=== PATIENT | male | born 1950 | race Caucasian/White ===

== ENCOUNTER → 2017-01-08 | Outpatient (CLI) | payer OTHER ==
[2017-01-08 14:04] LABS: Blood Urea Nitrogen 12 mg/dL (9-20); Non-African American GFR(MDRD) >60 (>60 ml/min/1.73 sqM)
--- NOTE | 2017-01-10 15:35 | CT ---
EXAMINATION TYPE: CT ChestAbdPelvis w con DATE OF EXAM: 01/08/2017 COMPARISON: Prior CT chest 06/28/2016 HISTORY: Follow up colon cancer CT DLP: 2722.6 mGycm Automated exposure control for dose reduction was used. CONTRAST: CT scan of the chest, abdomen and pelvis is performed with Oral Contrast and with IV Contrast, patien t injected with 100 mL of Omnipaque 300. FINDINGS: There are differences in technique within the 2 studies. LUNGS: Multiple subcentimeter nodules are present, there is no change in size and number suspected ac counting for differences in technique. MEDIASTINUM: There are no greater than 1 cm hilar or mediastinal lymph nodes. There are coronary art kia calcifications present. No pericardial effusion is seen. No filling defect evident within the pul monary arteries to suggest pulmonary embolism although the contrast enhancement is different on this exam compared to prior. AORTA: No significant abnormality is seen. OTHER: Left-sided Port-A-Cath is present, catheter is coursing into the superior vena cava.. LIVER/GB: Liver shows low attenuation possibly due to hepatocellular disease, hepatic steatosis, the liver is enlarged and I question an abnormal area of low-attenuation on arterial phase within the rig ht lobe, axial image 70 and axial image 50 PANCREAS: No significant abnormality is seen. SPLEEN: Scattered calcifications are present. ADRENALS: No significant abnormality is seen. KIDNEYS: Cortical cyst is present associated with the left kidney measuring 2.7 cm. Right cortical lo w dense focus measures 13 mm. REPRODUCTIVE ORGANS: Prostate is enlarged. BOWEL: Some increased attenuation present in the fat surrounding the right colon along the paracolic gutter and Gerota's fascia may be postoperative.. FREE AIR: No Free Air visible. ASCITES: None seen. RETROPERITONEAL ADENOPATHY: No retroperitoneal adenopathy is seen. LYMPH NODES: No greater than 1 cm abdominal or pelvic lymph nodes are appreciated. URINARY BLADDER: Bladder wall is mildly thickened possibly due to chronic outlet obstruction. PELVIC ADENOPATHY: None visualized. OSSEOUS STRUCTURES: No significant abnormality is seen. Inferior vena cava filter is present in the infrarenal location. Increased attenuation along the ante rior abdominal wall midline compatible with postop change. IMPRESSION: Pulmonary nodules are thought likely to be stable suggesting old granulomatous disease. H eterogeneous density within the liver. Contrast-enhanced MRI of the liver may be of benefit to assess for fatty infiltration, exclude underlying metastatic disease. Follow-up recommended. Additional fin dings above.
== END | disposition home or self-care (01) ==
LOC: RADPROMAIN 12:56
PROVIDERS: ATTEND Internal Medicine Hematology & Oncology
DX: R91.8 Other nonspecific abnormal finding of lung field (principal); R93.2 Abnormal findings on diagnostic imaging of liver and biliary tract; C18.0 Malignant neoplasm of cecum
CPT/HCPCS: 82565; 84520; 71260; 74177; 36415; Q9967

== ENCOUNTER 2017-08-01 06:39 | Day surgery (SDC) | payer MEDICARE, OTHER ==
[2017-07-27 15:27] VITALS: BMI 37.8
[~2017-08-01 06:39] MED LIST: LACTATED RINGERS 1,000 ML IV SCH
[2017-08-01] MEDS ORDERED: LACTATED RINGERS 1,000 ML IV ONE (07:01)
[2017-08-01 07:09] VITALS: TEMP 98.2
[2017-08-01 07:13] LABS: Glucose,Whole Blood 116 mg/dL (75-99)
[2017-08-01] MEDS ORDERED: fentaNYL (PF) 50 MCG/ML 2 ML AMP ONE (07:30)
[2017-08-01] MEDS ORDERED: LIDOCAINE 1% INJ 10MG/ML (20 ML MDV) ONE (07:30)
[2017-08-01] MEDS ORDERED: GLYCOPYRROLATE 0.2 MG/ML 2 ML VIAL ONE (07:30)
[2017-08-01] MEDS ORDERED: PROPOFOL 10 MG/ML 20 ML VIAL IV ONE (07:30)
--- NOTE | 2017-08-01 07:35 | P.GSHP ---
History of Present Illness H&P Date: 08/01/17 CHIEF COMPLAINT: GERD and colon cancer HISTORY OF PRESENT ILLNESS: The patient is a 66-year-old male who presents with gastroesophageal reflux disease and need for colon screen. Upper and lower endoscopy were offered for further evaluation and management. PAST MEDICAL HISTORY: Please see list. PAST SURGICAL HISTORY: Please see list. MEDICATIONS: Please see list. ALLERGIES: Please see list. SOCIAL HISTORY: No illicit drug use FAMILY HISTORY: No reports of Crohn disease or ulcerative colitis. REVIEW OF ORGAN SYSTEMS: CONSTITUTIONAL: No reports of fevers or chills. GI: Denies any blood in stools or constipation. PHYSICAL EXAM: VITAL SIGNS: Stable GENERAL: Well-developed pleasant in no acute distress. HEENT: No scleral icterus. Extraocular movements grossly intact. Moist buccal mucosa. NECK: Supple without lymphadenopathy. CHEST: Unlabored respirations. Equal bilateral excursions. CARDIOVASCULAR: Regular rate and rhythm. Distal 2+ pulses. ABDOMEN: Soft, nondistended. MUSCULOSKELETAL: No clubbing, cyanosis, or edema. ASSESSMENT: 1. Gastroesophageal reflux disease 2. History of colon cancer. PLAN: 1. Recommend proceeding with an upper and lower endoscopy Past Medical History Past Medical History: Atrial Fibrillation, Coronary Artery Disease (CAD), Cancer , Heart Failure, Diabetes Mellitus, GERD/Reflux, GI Bleed, Hyperlipidemia, Hypertension, Myocardial Infarction ([place]), Sleep Apnea/CPAP/BIPAP Additional Past Medical History / Comment(s): gout,skin ca, COLON CA, ENLARGED PROSTATE Last Myocardial Infarction Date:: 2006 History of Any Multi-Drug Resistant Organisms: None Reported Past Surgical History: Appendectomy, Bowel Resection, Heart Catheterization With Stent, Orthopedic Surgery Additional Past Surgical History / Comment(s): skin ca removed, lt shoulder sx and rt knee sx, sinus sx(devaited septum). COLONOSCOPY Past Anesthesia/Blood Transfusion Reactions: Postoperative Nausea & Vomiting ( PONV) Date of Last Stent Placement:: 2006 Smoking Status: Former smoker - Past Family History Father Family Medical History: Asthma, Hyperlipidemia Additional Family Medical History / Comment(s): at age 61. was a heavy smoker,prostate sx a week before he not sure what took him. Mother Family Medical History: Dementia Additional Family Medical History / Comment(s): at age 75 from alzheimers Medications and Allergies Home Medications Medication Instructions Recorded Confirmed Type [employer] Carbonate [[employer] 450 mg PO HS 01/15/14 08/01/17 History Carbonate ER] Metoprolol Tartrate [Lopressor] 50 mg PO BID 01/15/14 08/01/17 History Potassium Chloride [Klor-Con 20] 20 meq PO DAILY 01/15/14 08/01/17 History Pravastatin Sodium [Pravachol] 40 mg PO HS 01/15/14 08/01/17 History Ziprasidone HCl 80 mg PO HS 01/15/14 08/01/17 History LORazepam [Ativan] 1 mg PO TID PRN 03/06/15 08/01/17 History Allopurinol [Zyloprim] 100 mg PO DAILY 07/28/15 08/01/17 History Cholecalciferol [Vitamin D3] 1,000 unit PO DAILY 07/28/15 08/01/17 History Fish Oil/Dha/Epa [Fish Oil 1,200 1 cap PO DAILY 07/28/15 08/01/17 History mg Fish Oil] Sertraline HCl [Zoloft] 100 mg PO DAILY 11/05/15 08/01/17 History [employer] Carbonate [[employer] 300 mg PO QA 01/27/16 08/01/17 History Carbonate ER] Rivaroxaban [Xarelto] 20 mg PO DAILY 07/27/17 08/01/17 History Temazepam [Restoril] 15 mg PO BID 07/27/17 08/01/17 History glipiZIDE [Glucotrol] 5 mg PO AC-BRKFST 07/27/17 08/01/17 History Allergies Allergy/AdvReac Type Severity Reaction Status Date / Time clopidogrel bisulfate Allergy Rash/Hives Verified 08/01/17 07:15 [From Plavix] Sulfa (Sulfonamide Allergy Rash/Hives Verified 08/01/17 07:15 Antibiotics) Surgical - Exam Vital Signs Temp Pulse Resp BP Pulse Ox 98.2 F 63 18 152/90 95 08/01/17 07:08 08/01/17 07:08 08/01/17 07:08 08/01/17 07:08 08/01/17 07:08 Results - Labs Abnormal Lab Results - Last 24 Hours (Table) 08/01/17 Range/Units 07:10 POC Glucose (mg/dL) 116 H (75-99) mg/dL
[2017-08-01] MEDS ORDERED: IV FLUID CONTINUATION 700 ML IV ONE (08:01)
--- NOTE | 2017-08-01 08:01 | P.PCN ---
Date of Procedure: 08/01/17 Description of Procedure: PREOPERATIVE DIAGNOSIS: Colonoscopy screening. Personal history of lung cancer, stage III POSTOPERATIVE DIAGNOSIS: Colonoscopy screening. Personal history of lung cancer, stage III Colon polyp, 90 cm History of right hemicolectomy Sigmoid diverticulosis OPERATION: Colonoscopy to the ileocolic anastomosis Colonoscopy with snare polypectomy at 90 cm. SURGEON: Caryn Llamas MD. ANESTHESIA: MAC. INDICATIONS: The patient is a 66-year-old male who presents for diagnosed with stage III colon cancer treated with right hemicolectomy over a year ago. Benefits and risks were described and informed consent was obtained. DESCRIPTION OF PROCEDURE: The patient had undergone Gatorade, MiraLAX and Dulcolax prep. He had been brought into the operating room and laid in the left lateral decubitus position. After adequate intravenous sedation, the rectum was examined with 2% lidocaine jelly. The prostate was smooth and without abnormality. No external hemorrhoids were encountered. The rectal tone was within normal limits. No lesions were palpated in the rectal vault. An Olympus colonoscope was advanced until the ileocecal valve and appendiceal orifice were clearly viewed. The prep was good with visualization of the mucosal folds. The scope was removed with visualization of each mucosal fold. Sigmoid diverticulosis was encountered. A 4 mm flat tubular adenoma at 90 cm from the anal verge was snare polypectomy. No evidence of focal colitis was found. Retroflexion of the scope demonstrated no internal hemorrhoids with active bleeding or inflammation. The colon was desufflated. The patient had tolerated the procedure well. Withdrawal time was over 6 minutes. FINDINGS: No arteriovenous malformations. Sigmoid diverticulosis Right hemicolectomy Removal of 1 polyp: - Snare polypectomy 90 cm from the anal verge, 4 mm tubulovillous adenoma polyp. No focal colitis. RECOMMENDATIONS: Recommend repeat colonoscopy 1 year.
--- NOTE | 2017-08-01 08:05 | P.PCN ---
Date of Procedure: 08/01/17 Description of Procedure: PREOPERATIVE DIAGNOSIS: Gastroesophageal reflux disease. Morbid obesity. POSTOPERATIVE DIAGNOSIS: Morbid obesity. Gastritis. Duodenal polyps. Gastric polyp. Gastroesophageal reflux disease. OPERATION: Esophagogastroduodenoscopy with biopsies along gastric fundic polyp and first portion of duodenum. SURGEON: Caryn Llamas MD ANESTHESIA: MAC. INDICATIONS: The patient is a 66-year-old male who presents with a history of reflux disease. Benefits and risks of the procedure were described. Informed consent was obtained. DESCRIPTION: The patient was brought into the endoscopy suite and laid in the left lateral decubitus position. An Olympus gastroscope was passed along the posterior oropharynx down to the distal esophagus where the squamocolumnar junction was encountered at 42 cm from the incisors. The stomach was entered and no bile reflux was found. Over 250 mL of clear fluid was aspirated from the stomach Additional findings are listed below. Biopsies with cold forceps were obtained of the 5-mm polyp of the gastric fundus and first portion of the duodenum with multiple duodenal polyps. The first through third portion of the duodenum was examined and remarkable remarkable polyps along the first portion of duodenum. Retroflexion of the scope confirmed Hill grade 2 lower esophageal valve. The squamocolumnar junction demostrated LA grade B erosive esophagitis. The stomach was desufflated. The patient tolerated the procedure well. FINDINGS: Squamocolumnar junction 42 cm from the incisors. Diaphragmatic hiatus at 42 cm. Hill grade 2 lower esophageal valve. LA grade B erosive esophagitis. Duodenal polyps first portion. Gastric polyp along fundus Gastritis, antrum RECOMMENDATIONS: Further recommendations pending results of pathology report. Upper endoscopy as needed. Plan - Discharge Summary New Discharge Prescriptions: No Action Pravastatin Sodium [Pravachol] 40 mg PO HS Potassium Chloride [Klor-Con 20] 20 meq PO DAILY Metoprolol Tartrate [Lopressor] 50 mg PO BID Ziprasidone HCl 80 mg PO HS [place] Carbonate [[place] Carbonate ER] 450 mg PO HS LORazepam [Ativan] 1 mg PO TID PRN PRN Reason: Pain Fish Oil/Dha/Epa [Fish Oil 1,200 mg Fish Oil] 1 cap PO DAILY Cholecalciferol [Vitamin D3] 1,000 unit PO DAILY Allopurinol [Zyloprim] 100 mg PO DAILY Sertraline HCl [Zoloft] 100 mg PO DAILY [place] Carbonate [[place] Carbonate ER] 300 mg PO QAM glipiZIDE [Glucotrol] 5 mg PO AC-BRKFST Rivaroxaban [Xarelto] 20 mg PO DAILY Temazepam [Restoril] 15 mg PO BID Discharge Medication List [place] Carbonate [[place] Carbonate ER] 450 mg PO HS 01/15/14 [History] Metoprolol Tartrate [Lopressor] 50 mg PO BID 01/15/14 [History] Potassium Chloride [Klor-Con 20] 20 meq PO DAILY 01/15/14 [History] Pravastatin Sodium [Pravachol] 40 mg PO HS 01/15/14 [History] Ziprasidone HCl 80 mg PO HS 01/15/14 [History] LORazepam [Ativan] 1 mg PO TID PRN 03/06/15 [History] Allopurinol [Zyloprim] 100 mg PO DAILY 07/28/15 [History] Cholecalciferol [Vitamin D3] 1,000 unit PO DAILY 07/28/15 [History] Fish Oil/Dha/Epa [Fish Oil 1,200 mg Fish Oil] 1 cap PO DAILY 07/28/15 [History] Sertraline HCl [Zoloft] 100 mg PO DAILY 11/05/15 [History] [place] Carbonate [[place] Carbonate ER] 300 mg PO QAM 01/27/16 [History] Rivaroxaban [Xarelto] 20 mg PO DAILY 07/27/17 [History] Temazepam [Restoril] 15 mg PO BID 07/27/17 [History] glipiZIDE [Glucotrol] 5 mg PO AC-BRKFST 07/27/17 [History] Follow up Appointment(s)/Referral(s): Caryn Llamas MD [STAFF PHYSICIAN] - As Needed Patient Instructions/Handouts: *Surgery [facility] - (Anesthesia) Endoscopy Discharge Instructions, Colonoscopy (DC), Upper Endoscopy (DC)
[2017-08-01 08:18] VITALS: BP 133/74; PULSE 65; RESP 16
== END 2017-08-01 08:44 | disposition home or self-care (01) ==
LOC: ORWHC2ENDO 06:39
PROVIDERS: ATTEND Surgery Plastic and Reconstructive Surgery
DX: Z12.11 Encounter for screening for malignant neoplasm of colon (principal); K31.7 Polyp of stomach and duodenum; K29.70 Gastritis, unspecified, without bleeding; K21.0 Gastro-esophageal reflux disease with esophagitis; D12.3 Benign neoplasm of transverse colon; K57.30 Diverticulosis of large intestine without perforation or abscess without bleeding; Z85.038 Personal history of other malignant neoplasm of large intestine; Z90.49 Acquired absence of other specified parts of digestive tract; I48.91 Unspecified atrial fibrillation; I25.10 Atherosclerotic heart disease of native coronary artery without angina pectoris; I11.0 Hypertensive heart disease with heart failure; I50.9 Heart failure, unspecified; E11.9 Type 2 diabetes mellitus without complications; E78.5 Hyperlipidemia, unspecified; I25.2 Old myocardial infarction; M10.9 Gout, unspecified; G47.30 Sleep apnea, unspecified; Z99.89 Dependence on other enabling machines and devices; N40.0 Benign prostatic hyperplasia without lower urinary tract symptoms; Z95.5 Presence of coronary angioplasty implant and graft; E66.01 Morbid (severe) obesity due to excess calories; Z68.37 Body mass index [BMI] 37.0-37.9, adult; Z85.828 Personal history of other malignant neoplasm of skin; Z85.118 Personal history of other malignant neoplasm of bronchus and lung; Z79.899 Other long term (current) drug therapy; Z79.01 Long term (current) use of anticoagulants; Z79.84 Long term (current) use of oral hypoglycemic drugs; Z88.2 Allergy status to sulfonamides; Z88.8 Allergy status to other drugs, medicaments and biological substances; Z87.891 Personal history of nicotine dependence
CPT/HCPCS: 96372; 99284; 88305; 74018; 45385; 43239; J0500; J2001; J3010; J2704

== ENCOUNTER 2017-08-01 15:14 | Emergency (ER) | payer MEDICARE, BC ==
[2017-08-01 15:27] VITALS: RESP 18; TEMP 97.4
[2017-08-01] MEDS ORDERED: DICYCLOMINE 10 MG/ML 2 ML AMP IM STA (15:52)
--- NOTE | 2017-08-01 15:58 | ED ---
General Adult HPI - General Chief complaint: Abdominal Pain Stated complaint: abd pain Time Seen by Provider: 08/01/17 15:25 Source: patient, RN notes reviewed Mode of arrival: ambulatory Limitations: no limitations - History of Present Illness Initial comments: This is a 66-year-old male who presents emergency Department complaining that he has had a lot of abdominal cramping. Patient states he had a colonoscopy and endoscopy this morning and when he got home the cramping became quite severe. Patient states the symptoms come and go and currently he is asymptomatic. Patient states palpating his abdomen does not hurt. Patient denies any fever chills per patient denies any vomiting or diarrhea. Patient states she does have history colon cancer and that is why he had the endoscopy and colonoscopy today. - Related Data Home Medications Medication Instructions Recorded Confirmed [place] Carbonate [[place] 450 mg PO HS 01/15/14 08/01/17 Carbonate ER] Metoprolol Tartrate [Lopressor] 50 mg PO BID 01/15/14 08/01/17 Potassium Chloride [Klor-Con 20] 20 meq PO DAILY 01/15/14 08/01/17 Pravastatin Sodium [Pravachol] 40 mg PO HS 01/15/14 08/01/17 Ziprasidone HCl 80 mg PO HS 01/15/14 08/01/17 LORazepam [Ativan] 1 mg PO TID PRN 03/06/15 08/01/17 Allopurinol [Zyloprim] 100 mg PO DAILY 07/28/15 08/01/17 Cholecalciferol [Vitamin D3] 1,000 unit PO DAILY 07/28/15 08/01/17 Fish Oil/Dha/Epa [Fish Oil 1,200 1 cap PO DAILY 07/28/15 08/01/17 mg Fish Oil] Sertraline HCl [Zoloft] 100 mg PO DAILY 11/05/15 08/01/17 [place] Carbonate [[place] 300 mg PO QAM 01/27/16 08/01/17 Carbonate ER] Rivaroxaban [Xarelto] 20 mg PO DAILY 07/27/17 08/01/17 Temazepam [Restoril] 15 mg PO BID 07/27/17 08/01/17 glipiZIDE [Glucotrol] 5 mg PO BID 07/27/17 08/01/17 Nitroglycerin Sl Tabs [Nitrostat] 0.4 mg SUBLINGUAL Q5M PRN 08/01/17 08/01/17 Allergies Allergy/AdvReac Type Severity Reaction Status Date / Time clopidogrel bisulfate Allergy Rash/Hives Verified 08/01/17 16:00 [From Plavix] Sulfa (Sulfonamide Allergy Rash/Hives Verified 08/01/17 16:00 Antibiotics) Review of Systems ROS Statement: Those systems with pertinent positive or pertinent negative responses have been documented in the HPI. ROS Other: All systems not noted in ROS Statement are negative. Past Medical History Past Medical History: Atrial Fibrillation, Coronary Artery Disease (CAD), Cancer , Heart Failure, Eye Disorder, GERD/Reflux, GI Bleed, Hyperlipidemia, Hypertension, Myocardial Infarction ([place]), Sleep Apnea/CPAP/BIPAP Additional Past Medical History / Comment(s): gout,skin ca, 01-15-14 double vision, recent influenza admisison, colon ca Last Myocardial Infarction Date:: 2006 History of Any Multi-Drug Resistant Organisms: None Reported Past Surgical History: Appendectomy, Bowel Resection, Heart Catheterization With Stent, Orthopedic Surgery Additional Past Surgical History / Comment(s): skin ca removed, lt shoulder sx and rt knee sx, sinus sx(devaited septum) Past Anesthesia/Blood Transfusion Reactions: No Reported Reaction Date of Last Stent Placement:: 2006 Past Psychological History: Anxiety, Bipolar, Depression Smoking Status: Former smoker Past Alcohol Use History: None Reported Past Drug Use History: None Reported - Past Family History Father Family Medical History: Asthma, Hyperlipidemia Additional Family Medical History / Comment(s): at age 61. was a heavy smoker,prostate sx a week before he not sure what took him. Mother Family Medical History: Dementia Additional Family Medical History / Comment(s): at age 75 from alzheimers General Exam - General Exam Comments Initial Comments: GENERAL: Patient is well-developed and well-nourished. Patient is nontoxic and well- hydrated and is in no acute distress. ENT: Neck is soft and supple. No significant lymphadenopathy is noted. Oropharynx is clear. Moist mucous membranes. Neck has full range of motion without eliciting any pain. EYES: The sclera were anicteric and conjunctiva were pink and moist. Extraocular movements were intact and pupils were equal round and reactive to light. Eyelids were unremarkable. PULMONARY: Unlabored respirations. Good breath sounds bilaterally. No audible rales rhonchi or wheezing was noted. CARDIOVASCULAR: There is a regular rate and rhythm without any murmurs gallops or rubs. ABDOMEN: Soft and nontender with normal bowel sounds. No palpable organomegaly was noted. There is no palpable pulsatile mass. SKIN: Skin is clear with no lesions or rashes and otherwise unremarkable. NEUROLOGIC: Patient is alert and oriented x3. Cranial nerves II through XII are grossly intact. Motor and sensory are also intact. Normal speech, volume and content. Symmetrical smile. MUSCULOSKELETAL: Normal extremities with adequate strength and full range of motion. LYMPHATICS: No significant lymphadenopathy is noted PSYCHIATRIC: Normal psychiatric evaluation. Limitations: no limitations Course Vital Signs 08/01/17 15:23 Temperature 97.4 F L Pulse Rate 64 Respiratory 18 Rate Blood Pressure 142/79 O2 Sat by Pulse 97 Oximetry Medical Decision Making - Medical Decision Making I went back into the room to reevaluate the patient and he had no pain at this time and stated the cramps were much improved. Disposition Clinical Impression: Abdominal cramping Disposition: HOME SELF-CARE Condition: Good Instructions: Abdominal Pain (ED) Referrals: Juan Shields DO [Primary Care Provider] - 1-2 days Time of Disposition: 17:15
--- NOTE | 2017-08-01 16:25 | XR ---
EXAMINATION TYPE: XR KUB DATE OF EXAM: 08/01/2017 COMPARISON: NONE INDICATION: Pain and abdominal cramping TECHNIQUE: Single view abdomen upright view FINDINGS: No free air is evident. Nonspecific bowel gas is present. Psoas margins are normal No organomegaly is present. IMPRESSION: 1. Nonspecific abdomen.
[2017-08-01 17:35] VITALS: BP 138/80; PULSE 72
== END 2017-08-01 17:34 | disposition home or self-care (01) ==
LOC: EC 15:14
DX: R10.9 Unspecified abdominal pain (principal); I48.91 Unspecified atrial fibrillation; I25.10 Atherosclerotic heart disease of native coronary artery without angina pectoris; E78.5 Hyperlipidemia, unspecified; I11.0 Hypertensive heart disease with heart failure; I50.9 Heart failure, unspecified; I25.2 Old myocardial infarction; M10.9 Gout, unspecified; G47.30 Sleep apnea, unspecified; F41.9 Anxiety disorder, unspecified; F31.9 Bipolar disorder, unspecified; Z85.038 Personal history of other malignant neoplasm of large intestine; Z85.828 Personal history of other malignant neoplasm of skin; Z87.891 Personal history of nicotine dependence; Z90.49 Acquired absence of other specified parts of digestive tract; Z98.890 Other specified postprocedural states; Z99.89 Dependence on other enabling machines and devices; Z79.01 Long term (current) use of anticoagulants; Z79.84 Long term (current) use of oral hypoglycemic drugs; Z79.899 Other long term (current) drug therapy; Z88.2 Allergy status to sulfonamides; Z88.8 Allergy status to other drugs, medicaments and biological substances
CPT/HCPCS: 74018; 99284; 96372; J0500

== ENCOUNTER → 2017-08-21 | Outpatient (CLI) | payer MEDICARE, BC ==
--- NOTE | 2017-08-21 12:12 | US ---
EXAMINATION TYPE: US gallbladder DATE OF EXAM: 08/21/2017 COMPARISON: US & CT CLINICAL HISTORY: Cholelithiasis K80.80. generalized abdominal pain EXAM MEASUREMENTS: Liver Length: 16.5 cm Gallbladder Wall: 0.2 cm CBD: 0.6 cm Right Kidney: 12.9 x 5.3 x 6.1 cm Pancreas: not visualized due to bowel gas Liver: difficult to penetrate with poor visualization of the portal triads. This limits evaluation f or hepatic masses and most commonly relates to hepatic steatosis. Gallbladder: No stones seen, measures 0.2 cm Evidence for sonographic Hedrick's sign: No CBD: wnl Right Kidney: No hydronephrosis or masses seen IMPRESSION: 1. Findings most compatible with hepatic steatosis. 2. No sonographic evidence of cholelithiasis or acute cholecystitis.
== END | disposition home or self-care (01) ==
LOC: RADUSWWP 11:09
PROVIDERS: ATTEND Surgery Plastic and Reconstructive Surgery
DX: K50.80 Crohn's disease of both small and large intestine without complications (principal); Z88.2 Allergy status to sulfonamides; Z88.8 Allergy status to other drugs, medicaments and biological substances
CPT/HCPCS: 76705

== ENCOUNTER → 2017-10-10 | Outpatient (CLI) | payer OTHER ==
[2017-10-10 11:44] LABS: Blood Urea Nitrogen 20 mg/dL (9-20)
--- NOTE | 2017-10-10 16:03 | CT ---
EXAMINATION TYPE: CT ChestAbdPelvis w con DATE OF EXAM: 10/10/2017 INDICATION: Colon cancer COMPARISON: 01/08/2017 CT DLP: 2380 mGycm CONTRAST: Performed with Oral Contrast and with IV Contrast, patient injected with 100 ml mL of [place]so[place] 300. TECHNIQUE: Axial images at 5 mm thick sections. Reconstructed images in the coronal plane. Delayed images through the kidneys. FINDINGS: CT CHEST: Portion of the thyroid visualized is normal. There is a 0.4 cm nodule in the periphery of the right apex. There is a 0.3 cm peripheral nodule in t he anterior lateral right there is a 0.5 cm nodule in the posterior left upper lung field. Series 4 i mage 22. Upper lobe. Series 4 image 17. There are several punctate nodules within the periphery of th e right midlung. Series 4 image 26.r there is a 0.6 cm nodular density in the periphery of the right midlung. Series 4 image 28. 0.6 cm nodules in the right infrahilar region. There is a tiny density in the anterior lateral right lung base measuring 0.7 cm. Series 4 image 37. A punctate nodules in the lingula measuring 0.4 cm. Series 4 image 41. Lung nodules are stable over the interval. No enlarged mediastinal or hilar adenopathy is evident. The ascending aorta diameter at the level of the main pulmonary artery is 3.7 cm. The main pulmonary artery diameter at the bifurcation is 3.[address] ABDOMEN: Liver: There is moderate fatty infiltration of the liver. Spleen: Normal Pancreas: Normal Adrenal glands: The adrenal glands are normal. Gallbladder: Normal Kidneys: No masses are evident. No hydronephrosis is present. There is a 1.7 cm cyst along the ante rior right mid kidney measuring 7 Hounsfield units. There is a lateral mid left kidney cyst measuring 1.8 cm and 0 Hounsfield units. Delayed images were obtained through the kidneys. Aorta: Vascular calcification is within the aorta. Inferior vena cava: Normal. CT PELVIS: Loops of bowel within the abdomen and pelvis are normal. There are loops of bowel which are incom pletely distended or lack oral contrast limiting their evaluation. Appendix: Not visualized Urinary bladder: Normal. Genitourinary structures: Prostate is somewhat prominent. Osseous structures: No suspicious lytic or sclerotic lesions. IMPRESSIONS: 1. Bilateral simple appearing renal cysts. 2. Multiple stable appearing punctate nodules within the bilateral lung major. Continued monitoring is recommended. 3. Suspicious changes suggest metastatic colon cancer are not identified. 4. Moderate fatty infiltration of the liver
== END | disposition home or self-care (01) ==
LOC: RADCTMAIN 10:57
PROVIDERS: ATTEND Internal Medicine Hematology & Oncology
DX: C18.0 Malignant neoplasm of cecum (principal); K76.0 Fatty (change of) liver, not elsewhere classified
CPT/HCPCS: 82565; 84520; 71260; 74177; 36415; Q9967

== ENCOUNTER → 2018-04-17 | Outpatient (CLI) | payer OTHER ==
[2018-04-17 11:16] LABS: Blood Urea Nitrogen 13 mg/dL (9-20)
--- NOTE | 2018-04-17 13:40 | CT ---
EXAMINATION TYPE: CT ChestAbdPelvis w con DATE OF EXAM: 04/17/2018 COMPARISON: 10/10/2017 and 01/08/2017 HISTORY: 67-year-old male follow-up Colon CA TECHNIQUE: Contiguous axial scanning of the chest, abdomen, and pelvis performed with IV Contrast, pa tient injected with 100 mL of Isovue 300. Delayed images through the kidneys were obtained. Coronal/s agittal reconstructions performed. CT DLP: 2967.4 mGycm Automated exposure control for dose reduction was used. FINDINGS: Chest: Heart normal size without pericardial effusion. Coronary vessel calcifications are present. Aorta normal caliber with conventional arch vessel branching anatomy. Mild bilateral gynecomastia. No thoracic lymphadenopathy by CT size criteria. Numerous scattered 4 mm and smaller pulmonary nodules on both sides are stable for 1 year 2 months. A bilobed irregular area of nodularity superior segment left lower lobe measuring 1.4 cm also remains unchanged but given the irregular appearance, additional follow-up can be performed to ensure 2 year s of stability. No consolidation or pleural effusion. Calcified granulomas in the lower paraesophageal region. ABDOMEN: Liver enlarged measuring 23.6 cm low-attenuation. Underlying fatty infiltration is suggested. Gallbladder, adrenal glands, and pancreas show no gross abnormality. Spleen enlarged at 14.5 cm. Subcentimeter hypodensity anterior lower pole right kidney, stable to slightly larger, likely a cyst. 3.5 cm hypodense lesion shows increasing density but no change in attenuation on delayed kidney imag es suggesting interval development of internal complication with debris. No dilated small bowel, free fluid, or free air. Focal fat stranding along the left paramedian anterior omentum is gradually decreasing from 01/08/2017 possibly postsurgical. Postsurgical changes of partial right hemicolectomy with ileocolonic anastomosis near the hepatic fle xure. No dilated small bowel, free fluid, or free air. Tiny fatty umbilical hernia. Mild stool in the right side of the colon and within the distal sigmoid and rectum. The sigmoid colon is redundant with diverticular change but no evidence for acute diverticulitis. There is moderate ci rcumferential wall thickening of the distal sigmoid and rectum noted. No mesenteric or retroperitoneal lymphadenopathy. Pelvis: Bladder partially distended. Prostate gland is enlarged at 5.8 cm wide. No abnormal fluid collection in the pelvis or pelvic lymphadenopathy. Bones: Mild degenerative changes at the hips. No osseous destructive process. Endplate spondylosis th roughout the thoracic spine. IMPRESSION: 1. 4 MM AND SMALLER SCATTERED PULMONARY NODULES ARE STABLE FOR 1 YEAR 2 MONTHS SUGGESTING A BENIGN ET IOLOGY. THERE IS A LARGER BILOBED, IRREGULAR NODULE MEASURING 1.4 CM IN THE SUPERIOR SEGMENT LEFT LOW ER LOBE WHICH IS ALSO STABLE. THIS CAN CONTINUE TO BE FOLLOWED IN ORDER TO DOCUMENT 2 YEARS OF STABIL ITY. 2. PRIOR PARTIAL RIGHT HEMICOLECTOMY WITH ILEOCOLONIC ANASTOMOSIS. NO EVIDENCE FOR METASTATIC DISEASE . 3. MODERATE CIRCUMFERENTIAL WALL THICKENING OF THE DISTAL SIGMOID AND RECTUM. CORRELATE FOR NONSPECIF IC COLITIS. 4. HEPATOSPLENOMEGALY (LIVER 23.6 CM AND SPLEEN 14.5 CM). FATTY INFILTRATION OF THE LIVER. 5. PROSTATOMEGALY (5.8 CM).
== END | disposition home or self-care (01) ==
LOC: RADCTMAIN 10:33
PROVIDERS: ATTEND Internal Medicine Hematology & Oncology
DX: C18.9 Malignant neoplasm of colon, unspecified (principal); K76.0 Fatty (change of) liver, not elsewhere classified; N40.0 Benign prostatic hyperplasia without lower urinary tract symptoms; K63.89 Other specified diseases of intestine; R16.2 Hepatomegaly with splenomegaly, not elsewhere classified; R91.8 Other nonspecific abnormal finding of lung field; Z88.2 Allergy status to sulfonamides; Z90.49 Acquired absence of other specified parts of digestive tract
CPT/HCPCS: 82565; 84520; 71260; 74177; 36415; Q9967

== ENCOUNTER → 2018-06-25 | Outpatient (CLI) | payer MEDICARE ==
--- NOTE | 2018-06-25 18:28 | CONS ---
CONSULTATION REASON FOR CONSULTATION: Sleep apnea. HISTORY OF PRESENT ILLNESS: This is a 67-year-old male patient coming in for sleep apnea evaluation. The patient was diagnosed having obstructive sleep apnea back in 1997 through a sleep center in [place]. Since then, [facility] [place] [facility] 2 years ago provided him a new [employer] Station CPAP unit. The CPAP unit is currently set at a pressure of 13 cm of water. The patient is coming in for a compliancy check to make sure the treatment adequate and successful. Currently, the patient was doing well. Snoring has completely subsided while on CPAP therapy. He is going to bed around 9:00 pm and waking up 7:00 am in the morning. He is averaging more than 10 hours of sleep. I checked his CPAP unit and the patient has been extremely compliant. His CPAP use is for more than 4 hours 100%. He is averaging around 12 hours of CPAP use per night. AHI while on treatment is down to 1.8. There is excessive leaks and the patient is looking for an alternative mask to his Simplus full face mask. His Dallas score is 8. No major hypersomnia or sleepiness during the day. PAST MEDICAL HISTORY: 1. Obstructive sleep apnea. 2. Gastroesophageal reflux disease. 3. Secondary erythrocytosis. 4. Colon cancer. 5. Hyperlipidemia. 6. Diabetes mellitus. 7. Gout. 8. Bipolar disorder. 9. Paroxysmal atrial fibrillation. 10.Coronary artery disease. 11.History of skin cancer. SURGICAL HISTORY: Includes shoulder surgery, knee surgery, hernia repair. Colectomy for an underlying colon cancer and resection of a skin cancer. DRUG ALLERGIES: SULFA AND HE IS ALSO ALLERGIC TO PLAVIX. OUTPATIENT MEDICATION LIST: Includes loratadine 10 mg p.o. daily. Temazepam 50 mg at bedtime. Metoprolol 50 mg p.o. twice a day, Xarelto 20 mg p.o. daily. Mometasone 1 puff in each nostril twice a day. at 80 mg p.o. daily, glipizide 5 mg p.o. daily. Allopurinol 100 mg p.o. daily. Nitroglycerin 0.4 mg on a p.r.n. basis. [place] 300 mg p.o. every day in the morning and 450 mg every day in the evening, Zoloft 100 mg p.o. daily. Ziprasidone 80 mg p.o. daily, mirtazapine 50 mg p.o. b.i.d., omeprazole 20 mg p.o. daily, vitamin D3 2000 units a day. Potassium chloride 20 mEq p.o. daily. FAMILY HISTORY: Negative for sleep apnea. SOCIAL HISTORY: The patient is a nonsmoker. No history of alcohol. No history of IV drugs. REVIEW OF SYSTEMS: 12-point review of system was done. Positive findings are mentioned above history of present illness. For now, the patient seems to be well treated. No sleep paralysis. No hallucinations. No cataplexy. No restlessness in lower extremities. No sleep talking. No sweating. No anxiety or panic attacks. Although he has history of depression, anxiety and bipolar disorder. No sleepwalking. No grinding of the teeth. No nocturia. No history of motor vehicle accident because of feeling drowsy or sleepy. PHYSICAL EXAMINATION: BP is 127/82. Pulse 72, respirations 16, temperature 98.5. Saturation 96% on room air. Weight is 290. Height is 5 feet 9 inches, neck size is 23 inches. GENERAL APPEARANCE: Calm, comfortable. Head is atraumatic, normocephalic. NECK: Supple. Mallampati class IV. There is no goiter or neck masses. LUNGS: Clear to auscultation. HEART: Sounds regular rate and rhythm. Normal S1, S2. No S3. No murmurs. ABDOMEN: Soft, nontender. EXTREMITIES: No edema. No cyanosis or clubbing. Neurologically: He is alert and oriented x3. IMPRESSION: 1. Obstructive sleep apnea currently on a CPAP pressure of 13 cm of water. Treatment is successful with exception of some leaks around the full-face mask. 2. Obesity BMI 42.6. 3. Hypersomnia, recovered. Current Dallas score is down to 8. 4. Gastroesophageal reflux disease. 5. Secondary erythrocytosis. 6. Colon cancer with a previous colectomy. 7. Hyperlipidemia. 8. History of diabetes mellitus. 9. Gout. 10.Bipolar disorder. 11.Paroxysmal atrial fibrillation. 12.Coronary artery disease. 13.History of skin cancer. PLAN: 1. Continue CPAP therapy at same level of pressure which is 13 cm of water. 2. Offer this patient AirFit P10 fullface mask instead of the Simplus which will give him a better mask seal. I fitted him to an AirFit F20 mask medium size. 3. Encourage weight loss. 4. Treatment is successful, one thing to consider is nocturnal oxygen analysis if the patient's hemoglobin remains elevated. Otherwise, I will see him back in a year's time in followup. BRIGITTE / TIM: [id number] /
== END | disposition home or self-care (01) ==
LOC: SLEEP 14:01
PROVIDERS: ATTEND Internal Medicine Critical Care Medicine
DX: G47.33 Obstructive sleep apnea (adult) (pediatric) (principal); E66.9 Obesity, unspecified; K21.9 Gastro-esophageal reflux disease without esophagitis; D75.1 Secondary polycythemia; E78.5 Hyperlipidemia, unspecified; E11.9 Type 2 diabetes mellitus without complications; M10.9 Gout, unspecified; F31.9 Bipolar disorder, unspecified; I48.0 Paroxysmal atrial fibrillation; I25.10 Atherosclerotic heart disease of native coronary artery without angina pectoris; Z68.41 Body mass index [BMI] 40.0-44.9, adult; Z85.828 Personal history of other malignant neoplasm of skin; Z85.038 Personal history of other malignant neoplasm of large intestine; Z90.49 Acquired absence of other specified parts of digestive tract; Z99.89 Dependence on other enabling machines and devices; Z79.84 Long term (current) use of oral hypoglycemic drugs; Z79.899 Other long term (current) drug therapy; Z88.2 Allergy status to sulfonamides; Z88.8 Allergy status to other drugs, medicaments and biological substances
CPT/HCPCS: 99211

== ENCOUNTER → 2018-10-28 | Outpatient (CLI) | payer OTHER ==
--- NOTE | 2018-10-28 18:40 | ECHOF ---
Referral Reason:I48.1 Persistent atrial fibrillation MEASUREMENTS -------- HEIGHT: 177.8 cm WEIGHT: 127.5 kg BP: 158/86 IVSd: 1.4 cm (0.6 - 1.1) LVIDd: 4.7 cm (3.9 - 5.3) LVPWd: 1.6 cm (0.6 - 1.1) IVSs: 2.0 cm LVIDs: 3.0 cm LVPWs: 1.8 cm LA Diam: 3.9 cm (2.7 - 3.8) RVIDd: 3.5 cm (< 3.3) LAESV Index (A-L): 34.10 ml/m Ao Diam: 3.3 cm (2.0 - 3.7) AV Cusp: 2.2 cm (1.5 - 2.6) EPSS: 0.5 cm RAP: 5.00 mmHg RVSP: 29.08 mmHg MV EF SLOPE: 150.46 mm/s (70 - 150) MV EXCURSION: 18.74 mm (> 18.000) FINDINGS -------- Atrial fibrillation. This was a technically difficult study with suboptimal views. The left ventricular size is normal. There is moderate concentric left ventricular hypertrophy. O verall left ventricular systolic function is normal with, an EF between 55 - 60 %. The right ventricle is mildly enlarged. LA is moderately dilated 34-39 ml/m2 The right atrium is normal in size. 5.0mg of Lumason was utilized for enhancement of images Interatrial and interventricular septum intact. The aortic valve is trileaflet and appears structurally normal. Mild mitral regurgitation is present. Mild tricuspid regurgitation present. Right ventricular systolic pressure is normal at < 35 mmHg. Trace/mild (physiologic) pulmonic regurgitation. The aortic root size is normal. IVC Not well visulized. There is no pericardial effusion. CONCLUSIONS -------- 1. Atrial fibrillation. 2. This was a technically difficult study with suboptimal views. 3. The left ventricular size is normal. 4. There is moderate concentric left ventricular hypertrophy. 5. Overall left ventricular systolic function is normal with, an EF between 55 - 60 %. 6. The right ventricle is mildly enlarged. 7. LA is moderately dilated 34-39 ml/m2 8. The right atrium is normal in size. 9. 5.0mg of Lumason was utilized for enhancement of images 10. Interatrial and interventricular septum intact. 11. The aortic valve is trileaflet and appears structurally normal. 12. Mild mitral regurgitation is present. 13. Mild tricuspid regurgitation present. 14. Right ventricular systolic pressure is normal at < 35 mmHg. 15. Trace/mild (physiologic) pulmonic regurgitation. 16. The aortic root size is normal. 17. IVC Not well visulized. 18. There is no pericardial effusion. SUPPLY COORDINATOR: Rosalind Rudolph RDCS
== END | disposition home or self-care (01) ==
LOC: RADECHMAIN 10:09
PROVIDERS: ATTEND Internal Medicine
DX: Z01.810 Encounter for preprocedural cardiovascular examination (principal); I08.1 Rheumatic disorders of both mitral and tricuspid valves; I48.91 Unspecified atrial fibrillation; I25.10 Atherosclerotic heart disease of native coronary artery without angina pectoris
CPT/HCPCS: 93306; Q9950

== ENCOUNTER → 2018-10-30 | Outpatient (CLI) | payer OTHER ==
--- NOTE | 2018-10-30 13:42 | US ---
EXAMINATION TYPE: US abdomen limited DATE OF EXAM: 10/30/2018 COMPARISON: CT 04/17/18, US 08/21/17 CLINICAL HISTORY: R94.5 Abnormal LFTS. EXAM MEASUREMENTS: Liver Length: 13.3 cm Gallbladder Wall: 0.2 cm CBD: 0.6 cm Right Kidney: 14.1 x 6.0 x 5.0 cm Pancreas: Obscured by bowel gas Liver: Increased attenuation, decreased visualization of vessels suggestive of fatty infiltrate, are as of focal sparing near GB. Findings are unchanged from the prior of 08/21/2017 Gallbladder: No stones seen Evidence for sonographic Hedrick's sign: No CBD: Upper limits for size Right Kidney: No hydronephrosis or masses seen IMPRESSION: As seen on the exam of 08/21/2017 there is a similar degree of hepatic steatosis with focal fatty sparing near the gallbladder fossa that is also unchanged from the prior exam.
== END | disposition home or self-care (01) ==
LOC: RADUSWWP 12:07
DX: K76.0 Fatty (change of) liver, not elsewhere classified (principal)
CPT/HCPCS: 76705

== ENCOUNTER → 2018-11-26 | Outpatient (CLI) | payer OTHER ==
[~2018-11-26] MED LIST changes: -LACTATED RINGERS 1,000 ML IV SCH; +REGADENOSON 0.4 MG/5 ML SYRINGE IV ONE
--- NOTE | 2018-11-26 10:07 | P.STRESS ---
- Stress Test Note Stress Test Results/Findings: Exam Performed: NM stress lexiscan cardiolite Exam Date: 11/26/18 Reason for Exam: A-FIB Height: 5 ft 9 in Weight: 127.459 kg Protocol: LEXISCAN Stage: NA Duration of Exercise: NA Resting Heart Rate: 61 Resting Blood Pressure: 160/90 Maximum Achieved Heart Rate: 77 Maximum Achieved Blood Pressure: 160/90 85% PMHR: NA 100% PMHR: NA METS: NA Technologist Comment: Stress Test Results/Findings: This is a 68-year-old gentleman with history of hypertension, diabetes, hypercholesteremia, previous CVA and family history of ischemic heart disease being evaluated for cardiac status. Patient also has history of CVA. Stress data: Baseline EKG showed atrial fibrillation with diffuse nonspecific abnormalities. There is poor R-wave progression in anterior leads. Blood pressure test is 160/90 with pulse rate of 61. A standard dose of Lexiscan was infused. EKGs taken during and after infusion did not reveal any significant changes from the baseline. Final impression: #1. Negative Lexiscan stress test #2. Report on the nuclear images to be given by the radiologist.
--- NOTE | 2018-11-26 11:45 | NM ---
EXAMINATION TYPE: NM stress lexiscan cardiolite DATE OF EXAM: 11/26/2018 COMPARISON: NONE HISTORY: Chest pain TECHNIQUE: After the intravenous administration of 10.44 mCi Tc 99m Sestamibi - Cardiolite resting S PECT images acquired 45 minutes post injection. The patient received 0.4mg Lexiscan, 25.7 mCi Tc 99m Sestamibi - Stress images obtained [address] injection FINDINGS: Review of stress and rest SPECT images demonstrates no distinct perfusion abnormality. Gated analysi s shows normal wall motion with an estimated left ventricular ejection fraction of 56 %. IMPRESSION: No scintigraphic evidence for reversible ischemia.
== END | disposition home or self-care (01) ==
LOC: RADNMMAIN 07:50
PROVIDERS: ATTEND Internal Medicine
DX: Z01.810 Encounter for preprocedural cardiovascular examination (principal); I25.10 Atherosclerotic heart disease of native coronary artery without angina pectoris; I48.2 Chronic atrial fibrillation; I45.19 Other right bundle-branch block; Z88.2 Allergy status to sulfonamides; Z88.8 Allergy status to other drugs, medicaments and biological substances
CPT/HCPCS: 78452; 93017

== ENCOUNTER → 2019-01-21 | Outpatient (CLI) | payer OTHER ==
[2019-01-21 09:05] LABS: African American GFR (CKD) >90 (>60 ml/min/1.73 sqM); Blood Urea Nitrogen 10 mg/dL (9-20)
--- NOTE | 2019-01-21 13:01 | CT ---
EXAMINATION TYPE: CT ChestAbdPelvis w con DATE OF EXAM: 01/21/2019 COMPARISON: 04/17/2018 and 01/08/2017 HISTORY: 68-year-old male Follow up colon ca TECHNIQUE: Contiguous axial scanning of the chest, abdomen, and pelvis performed with IV Contrast, pa tient injected with 100 mL of Isovue 300. Delayed images through the kidneys were obtained. Coronal/s agittal reconstructions performed. CT DLP: 3236 mGycm Automated exposure control for dose reduction was used. FINDINGS: CHEST: Heart normal size without pericardial effusion. Coronary vessel calcifications are present. Aorta normal caliber with conventional arch vessel branching anatomy. Scattered nonenlarged mediastinal lymph nodes are demonstrated. Mild to moderate bilateral gynecomast ia. Some calcified lower paraesophageal lymph nodes are noted. A 7 mm right midlung pulmonary nodule may be slightly larger from 01/08/2017 where it measured 5 mm. R eference axial image 45. Bilobed irregular pulmonary nodule superior segment left lower lobe continues to measure 1.4 cm, unch anged from 01/08/2017 suggesting a benign etiology. Numerous additional 4 mm and smaller pulmonary nodules are unchanged back to 01/08/2017. No consolidation or pleural effusion. ABDOMEN: Liver enlarged measuring 23.9 cm with low attenuation. The gallbladder hydropic at 4.9 cm wide. Equiv ocal for mild pericholecystic stranding. No biliary duct dilatation. Portal venous system appears pat ent. Adrenal glands and pancreas appear within normal limits. Bilateral renal cysts redemonstrated, largest measuring 3.2 cm. Spleen enlarged at 14.3 cm on coronal series. No dilated small bowel, free fluid, or free air. No mesenteric or retroperitoneal lymphadenopathy. Status post partial right hemicolectomy with ileocolic anastomosis. Contrast progressed to the mid tr ansverse colon. Prominent stool within the distal sigmoid and rectum distended to 5.1 cm wide. Prominent pericolonic vessels to the proximal to mid sigmoid colon with mild wall thickening. Pelvis: Mild circumferential bladder wall thickening. Prostate gland is enlarged measuring 5.9 cm wide. The pelvis or pelvic lymphadenopathy. Bones: Endplate spondylosis mid to lower thoracic spine. Surgical staple proximal left humerus. No osseous d estructive process. IMPRESSION: 1. STATUS POST PARTIAL RIGHT HEMICOLECTOMY WITH ILEOCOLONIC ANASTOMOSIS. 2. A 7 MM RIGHT MID LUNG PULMONARY NODULE IS SLIGHTLY LARGER FROM 01/08/2017 WHERE IT MEASURED 5 MM. A DDITIONAL FOLLOW-UP RECOMMENDED. 3. OTHERWISE, THE NUMEROUS OTHER BILATERAL PULMONARY NODULES INCLUDING THE PREVIOUSLY MENTIONED BILOB ED 1.4 CM NODULE SUPERIOR SEGMENT LEFT LOWER LOBE ARE STABLE FOR JUST OVER 2 YEARS SUGGESTING A BENIG N ETIOLOGY. 4. HYDROPIC GALLBLADDER. IF RIGHT UPPER QUADRANT PAIN OR CONCERN FOR EARLY ACUTE CHOLECYSTITIS, FOLLO W-UP ULTRASOUND OR HIDA SCAN. 5. WALL THICKENING OF THE REDUNDANT PROXIMAL SIGMOID COLON. CORRELATE TO EXCLUDE NONSPECIFIC MILD COL ITIS. 6. HEPATOSPLENOMEGALY (LIVER 22.9 CM WITH FATTY INFILTRATION AND SPLEEN 14.3 CM). 7. PROSTATOMEGALY (5.9 CM WIDE).
== END ==
LOC: RADCTMAIN 08:06
PROVIDERS: ATTEND Internal Medicine Hematology & Oncology
DX: R91.8 Other nonspecific abnormal finding of lung field (principal); K82.8 Other specified diseases of gallbladder; K76.0 Fatty (change of) liver, not elsewhere classified; R16.2 Hepatomegaly with splenomegaly, not elsewhere classified; K63.89 Other specified diseases of intestine; Z90.49 Acquired absence of other specified parts of digestive tract
CPT/HCPCS: 82565; 84520; 71260; 74177; 36415; Q9967

== ENCOUNTER → 2019-02-24 | Outpatient (CLI) | payer MEDICARE, BC ==
--- NOTE | 2019-02-24 13:23 | CT ---
EXAMINATION TYPE: CT sinus wo con DATE OF EXAM: 02/24/2019 COMPARISON: CT sinuses September 15, 2013. HISTORY: Chronic sinusitis per order. Facial pain and headaches CT DLP: 630.3 mGycm. Automated Exposure Control for Dose Reduction was Utilized. TECHNIQUE: CT scan of the sinuses is performed without contrast, axial images are obtained, coronal r eformatted images are also reviewed. FINDINGS: Stable small mucous retention cyst or polyp inferior left maxillary sinus axial image 10. M ild mucosal thickening posterior left ethmoid sinuses axial image 31 improved from prior. No suspicio us opacification or air-fluid levels The surgically treated ostiomeatal complex is patent bilaterall y on coronal image 21. Visualized portion of mastoid air cells show no abnormal opacification. The globes are intact bilate rally. Visualized portion of brain parenchyma shows diffuse age-related cerebral atrophy. IMPRESSION: No recurrent acute sinusitis.
== END | disposition home or self-care (01) ==
LOC: RADCTMAIN 12:26
PROVIDERS: ATTEND Otolaryngology
DX: J32.9 Chronic sinusitis, unspecified (principal); Z88.2 Allergy status to sulfonamides; Z88.8 Allergy status to other drugs, medicaments and biological substances
CPT/HCPCS: 70486

== ENCOUNTER → 2020-01-20 | Outpatient (CLI) | payer OTHER ==
[2020-01-20 11:13] LABS: African American GFR (CKD) >90 (>60 ml/min/1.73 sqM); Blood Urea Nitrogen 15 mg/dL (9-20); Non-African American GFR(CKD) >90 (>60 ml/min/1.73 sqM)
--- NOTE | 2020-01-20 13:57 | CT ---
EXAMINATION TYPE: CT ChestAbdPelvis w con DATE OF EXAM: 01/20/2020 COMPARISON: 01/21/2019 and 04/17/2018 HISTORY: 69-year-old male Follow up for carcinoma of cecum, colon CA, observe for metastases. TECHNIQUE: Contiguous axial scanning of the chest, abdomen, and pelvis performed with IV Contrast, pa tient injected with 100 mL of Isovue 300. Delayed images through the kidneys were obtained. Coronal/s agittal reconstructions performed. CT DLP: 1836 mGycm Automated exposure control for dose reduction was used. FINDINGS: CHEST: Heart normal size without pericardial effusion. RCA coronary artery calcifications are present. Aorta normal caliber with conventional arch vessel branching anatomy. Moderate bilateral gynecomastia. Numerous bilateral 4 mm smaller pulmonary nodules, largest being the bilobed 1.3 cm nodule superior s egment left lower lobe are unchanged. However, a 3 mm pulmonary nodule superior segment left lower lobe just adjacent, axial image 20 appea rs new. No consolidation or pleural effusion. Calcified lymph nodes lower paraesophageal region suggesting sequela of prior granulomatous disease. ABDOMEN: Liver remains enlarged at 22.7 cm. There may be underlying fatty infiltration of the liver. Spleen re santhosh enlarged at 14.7 cm. Portal venous system is patent. No biliary ductal dilatation. Gallbladder, adrenal glands, spleen appear within normal limits. Benign renal cysts measuring up to 3.4 cm on the left and 1.2 cm on the right are redemonstrated. Mild luana mesentery is unchanged. No dilated small bowel, free fluid, or free air. No mesenteric or retroperitoneal lymphadenopathy. Mild overall stool burden. Redundant sigmoid colon. No pericolonic inflammatory change. PELVIS: Prostate gland is enlarged measuring 6.0 cm. Bladder distended with mild circumferential wall thicken ing. Pelvic phleboliths. No abnormal fluid collection in the pelvis or pelvic lymphadenopathy. BONES: Mild degenerative change of the hips. [facility] within the lower thoracic spine. No osseous destructive pr ocess. IMPRESSION: 1. NUMEROUS BILATERAL PULMONARY NODULES REDEMONSTRATED, STABLE BACK TO 04/17/2018 SUGGESTING A BENIGN ETIOLOGY. A SINGLE 3 MM PULMONARY NODULE WITHIN THE SUPERIOR SEGMENT OF THE LEFT LOWER LOBE APPEARS NEW. SHORT INTERVAL FOLLOW-UP RECOMMENDED TO ENSURE STABILITY. 2. REDEMONSTRATED HEPATOSPLENOMEGALY (LIVER 22.7 CM AND SPLEEN 14.7 CM). 3. PROSTATOMEGALY 6.0 CM WIDE.
== END | disposition home or self-care (01) ==
LOC: RADCTMAIN 10:21
PROVIDERS: ATTEND Internal Medicine Hematology & Oncology
DX: C18.0 Malignant neoplasm of cecum (principal); N40.0 Benign prostatic hyperplasia without lower urinary tract symptoms; R16.2 Hepatomegaly with splenomegaly, not elsewhere classified; R91.8 Other nonspecific abnormal finding of lung field
CPT/HCPCS: 82565; 84520; 71260; 74177; 36415; Q9967

== ENCOUNTER → 2020-08-20 | Outpatient (CLI) | payer MEDICARE, BC ==
[2020-08-20 12:57] LABS: African American GFR (CKD) >90 (>60 ml/min/1.73 sqM); Blood Urea Nitrogen 15 mg/dL (9-20); Non-African American GFR(CKD) 87 (>60 ml/min/1.73 sqM)
--- NOTE | 2020-08-20 17:55 | CT ---
EXAMINATION TYPE: CT ChestAbdPelvis w con DATE OF EXAM: 08/20/2020 INDICATION: cecum cancer COMPARISON: CT DLP: 2684.5 mGycm CONTRAST: Performed with Oral Contrast and with IV Contrast, patient injected with 100 mL of Isovue 300. TECHNIQUE: Axial images at 5 mm thick sections. Reconstructed images in the coronal plane. Delayed images through the kidneys. FINDINGS: CT CHEST: Portion of the thyroid visualized is normal. There is a 0.4 cm nodule in the periphery of the lateral right apex. This appears stable. Series 4 im age 11. Punctate peripheral nodule in the right is stable. Series 4 image 16. There is a 1.0 cm spicu lated density in the posterior left upper lobe. Previous measurement 0.9 cm. Series 4 image 22. There is a 0.5 cm nodule in the periphery of the right midlung. Series 4 image 27. This was present previo usly. An additional nodule slightly more inferior is in the periphery of the right lung measuring 0.7 cm. Series 4 image 29. Peripheral left lung nodule is present at the same level. Small lingular nodu les present. Series 4 image 35. Peripheral nodules in the right mid and lower lobe. Series 4 image 39 No enlarged mediastinal or hilar adenopathy is evident. The ascending aorta diameter at the level of the main pulmonary artery is 3.6 cm. The main pulmonary artery diameter at the bifurcation is 3.2 cm. Some coronary artery calcification is noted. CT ABDOMEN: Liver: Enlarged Spleen: Scattered calcified granuloma within the spleen. Pancreas: Normal Adrenal glands: The adrenal glands are normal. Gallbladder: Normal Kidneys: No masses are evident. No hydronephrosis is present. There is a 2.7 cm cyst in the lateral left kidney measuring 11 Hounsfield units. Delayed images were obtained through the kidneys, which remain unremarkable. Aorta: Normal Inferior vena cava: Normal. CT PELVIS: Loops of bowel within the abdomen and pelvis are normal. There are loops of bowel which are incom pletely distended or lack oral contrast limiting their evaluation. Appendix: Normal as visualized. Urinary bladder: Normal. Genitourinary structures: Prostate is prominent Osseous structures: No suspicious lytic or sclerotic lesions. IMPRESSIONS: 1. There may be a spiculated nodularity within the posterior left upper lung field which is increased from 0.9 to 1.0 cm. 2. Additional Multiple bilateral stable pulmonary nodules. 3. Renal cysts. 4. Hepatomegaly.
== END | disposition home or self-care (01) ==
LOC: RADCTMAIN 11:58
PROVIDERS: ATTEND Internal Medicine Hematology & Oncology
DX: N28.1 Cyst of kidney, acquired (principal); R16.0 Hepatomegaly, not elsewhere classified
CPT/HCPCS: 82565; 84520; 71260; 74177; 36415; Q9967

== ENCOUNTER → 2021-02-21 | Outpatient (CLI) | payer MEDICARE, BC ==
[2021-02-21 12:15] LABS: African American GFR (CKD) >90 (>60 ml/min/1.73 sqM); Blood Urea Nitrogen 14 mg/dL (9-20); Non-African American GFR(CKD) >90 (>60 ml/min/1.73 sqM)
--- NOTE | 2021-02-21 13:17 | CT ---
EXAMINATION TYPE: CT chest w con DATE OF EXAM: 02/21/2021 COMPARISON: Prior CT August 20, 2020 and older studies HISTORY: Pulmonary nodules CT DLP: 839.0 mGycm. Automated Exposure Control for Dose Reduction was Utilized. TECHNIQUE: CT scan of the thorax is performed following with IV Contrast, patient injected with 100 mL of Isovue 300. FINDINGS: LUNGS: Stable 3 to 4 mm right apical pulmonary nodule laterally axial image 10 unchanged from 2017. Stable 2 to 3 mm peripheral right upper lobe nodule axial image 15 back through 2017. Stable 1.2 x 0. 5 cm spiculated nodule or scar like opacity superior left lower lobe axial image 19 from 2017 but the re is 5 mm nodule just posterior to this same image. Small nodules in the lateral right mid lung reference axial image 23 and extending inferiorly measuring almost up to 6 mm are grossly stable. Largest axial measures 30 Central lesion is stable from 2017. Scattered tiny nodules in the periphery of the left upper through lower lung are grossly stable measuring under 4 mm. There is no pleural effusion or pne umothorax seen bilaterally. The tracheobronchial tree is patent. MEDIASTINUM: There are no greater than 1 cm hilar or mediastinal lymph nodes. No cardiomegaly or pe ricardial effusion is seen. Right coronary stent. OTHER: Splenomegaly at 15.0 cm coronal image 62 is redemonstrated. Visualized portion of liver is pro minent and low dense. IMPRESSION: Predominantly stable scattered small nodules but new 5 mm nodule in the superior left lo wer lobe warrants short term CT follow-up in 6 months time to reassess.
== END | disposition home or self-care (01) ==
LOC: RADCTMAIN 11:28
PROVIDERS: ATTEND Internal Medicine Hematology & Oncology
DX: C18.0 Malignant neoplasm of cecum (principal); R91.8 Other nonspecific abnormal finding of lung field
CPT/HCPCS: 82565; 84520; 71260; 36415; Q9967

== ENCOUNTER → 2021-03-01 | Outpatient (CLI) | payer OTHER ==
--- NOTE | 2021-03-01 10:22 | US ---
EXAMINATION TYPE: US thyroid st tissue head/neck DATE OF EXAM: 03/01/2021 COMPARISON: CT chest 8 days ago CLINICAL HISTORY: E21.2 Other hyperparathyroidism. Elevated calcium GLAND SIZE: Right Lobe: 6.1 x 2.6 x 2.9 cm Overall Parenchyma: heterogenous Left Lobe: 4.1 x 3.2 x 2.5 cm Overall Parenchyma: heterogeneous Isthmus Thickness: 0.4 cm NODULES RIGHT: # of nodules measured on right: 1 1. 1.9 X 1.8 x 1.7 cm, mid lateral, solid or almost completely solid, hypoechoic nodule, which is t aller than wide, with irregular margins, with echogenic foci. Prior size: no prior LEFT: # of nodules measured on left: 0 ISTHMUS: # of nodules measured in the isthmus: 0 Bilateral neck scanned, no evidence of lymphadenopathy. Heterogeneous slightly enlarged thyroid gland particularly right thyroid lobe with 1.9 cm slightly hy poechoic right-sided thyroid nodule upper to midpole level with ill-defined margins that is taller gr eater than wide posteriorly on ultrasound less well seen on CT images. No suspicious extra thyroid no dules. IMPRESSION: No extrathyroid nodule to suggest parathyroid adenoma. There is 1.9 cm right thyroid nodu le. Advise FNA to further evaluate. 2017 ACR TI-RADS LEVEL: TI-RADS 5 - Highly Suspicious: Follow if > 0.5 cm, FNA if > 1.0 cm *Highest TI-RADS level nodule reported
== END | disposition home or self-care (01) ==
LOC: RADUSWWP 09:03
PROVIDERS: ATTEND Family Medicine
DX: E21.1 Secondary hyperparathyroidism, not elsewhere classified (principal); E04.1 Nontoxic single thyroid nodule
CPT/HCPCS: 76536

== ENCOUNTER → 2021-08-29 | Outpatient (CLI) | payer OTHER ==
[2021-08-29 11:25] LABS: African American GFR (CKD) >90 (>60 ml/min/1.73 sqM); Blood Urea Nitrogen 11 mg/dL (9-20); Non-African American GFR(CKD) 89 (>60 ml/min/1.73 sqM)
--- NOTE | 2021-08-29 13:42 | CT ---
EXAMINATION TYPE: CT chest w con DATE OF EXAM: 08/29/2021 COMPARISON: CT dated 02/21/2021 HISTORY: lung nodule CT DLP: 788 mGycm Automated exposure control for dose reduction was used. TECHNIQUE: CT scan of the chest is performed with IV Contrast, patient injected with 100 mL of Isovue 300. FINDINGS: LUNGS: Stable 7 mm elongated nodule at the inferior aspect of the right upper lobe (image #[id number], series 5). The remainder of the previously seen multiple variable sized bilateral pulmonary nodules are sta ble without interval progression. No definite new or progressive lung lesion or nodule identified. Pa tent trachea and main bronchi. No pleural effusion. MEDIASTINUM: Mild left atrial dilatation. Coronary and arterial atherosclerotic calcifications. No pa thologically enlarged lymph nodes in the chest. No pericardial effusion. OTHER: Slightly enlarged right thyroid lobe with tiny calcification, please correlate with thyroid u ltrasound results. Enlarged liver with nodular outline, please correlate with liver function tests an d hepatic viral serology. Tiny splenic calcification. Bilateral gynecomastia changes. Degenerative ch anges of the thoracic spine. IMPRESSION: Stable scattered bilateral pulmonary nodules without interval progression as detailed above. No defin ite new or progressive lung lesion. Other incidental findings as described above.
== END | disposition home or self-care (01) ==
LOC: RADCTMAIN 10:53
PROVIDERS: ATTEND Internal Medicine Hematology & Oncology
DX: Z03.89 Encounter for observation for other suspected diseases and conditions ruled out (principal); C18.0 Malignant neoplasm of cecum
CPT/HCPCS: 82565; 84520; 71260; 36415; Q9967

== ENCOUNTER → 2021-11-01 | Outpatient (CLI) | payer OTHER, MEDICARE | END | disposition home or self-care (01) | LOC: RADXRMAIN 16:11 | PROVIDERS: ATTEND Urology | DX: R97.20 Elevated prostate specific antigen [PSA] (principal) | CPT/HCPCS: 84153 ==

== ENCOUNTER → 2022-02-13 | Outpatient (CLI) | payer OTHER ==
--- NOTE | 2022-02-14 11:45 | CT ---
EXAMINATION TYPE: CT soft tissue neck wo/w con CT DLP: 1519.8 mGycm, Automated exposure control for dose reduction was used. DATE OF EXAM: 02/13/2022 4:37 PM COMPARISON: CT sinus 02/24/2019 and 01/15/2014 CLINICAL INDICATION:Male, 71 years old with history of L94.9 Left Neck Mass; Swollen mass on left jordyn e of neck x6 months TECHNIQUE: Standard enhanced CT of the neck. Axial sections with coronal and sagittal reformats were obtained. Contrast used:100cc mL of Isovue 300 with IV Contrast, Oral contrast used: none. Palpable marker placed at the discretion of the patient. FINDINGS: Brain: Visualized portions are grossly unremarkable. Orbits: Bilateral aphakia. Sinuses: Grossly unremarkable. Spaces of the neck: In the area of palpable abnormality in the the left neck just inferior to the par otid gland is a 2.0 x 1.9 x 2.2 cm masslike abnormality just inferior to the parotid gland and may ac tually be part of prior gland parenchyma. There is postcontrast enhancement present. Noncontrast Houn sfield units of 1-2 and postcontrast of 31. This lesion was just out of the [id number] on prior CT s of the sinuses. No additional masses or organizing fluid collections. Musculoskeletal: No acute osseous pathology. Lymph nodes: Multiple nonenlarged lymph nodes are seen along both anterior chains of the neck. Vascular structures: Visualized major arteries are patent without evidence of aneurysm. Atheroscleros is of the arterial vasculature. Thoracic Inlet/airway: Airway is patent. The lung apices are clear. Soft tissues/Thyroid: Thyroid and remainder of the soft tissues are unremarkable. Other: none. IMPRESSION Masslike area located in the inferior aspect of the left parotid gland which may actually be part of the parotid gland itself. This may represent an enlarged intraglandular lymph node or primary parotid gland neoplasm. Further evaluation with ultrasound and MRI may be of benefit. Consider tissue sampl ing at that time.
== END | disposition home or self-care (01) ==
LOC: RADCTMAIN 15:13
DX: L94.9 Localized connective tissue disorder, unspecified (principal)
CPT/HCPCS: 82565; 84520; 70492; 36415; Q9967

== ENCOUNTER → 2022-03-10 | Outpatient (CLI) | payer OTHER ==
[2022-03-10 09:37] LABS: African American GFR (CKD) >90 (>60 ml/min/1.73 sqM); Blood Urea Nitrogen 15 mg/dL (9-20); Non-African American GFR(CKD) 87 (>60 ml/min/1.73 sqM)
--- NOTE | 2022-03-10 11:11 | CT ---
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 Delayed images through the kidneys were obtained. Coronal/ sagittal reconstructions performed. CT DLP: 2607.50 mGycm Automated exposure control for dose reduction was used. FINDINGS: CHEST: Heart upper limits of normal size without pericardial effusion. RCA coronary artery calcifications ar e present in remarkable for coronary artery disease. Aorta normal caliber with conventional arch vessel branching anatomy. Enlarged caliber of the main right pulmonary artery at 2.7 cm may reflect underlying pulmonary artery hypertension. There is moderate bilateral gynecomastia. No thoracic lymphadenopathy by CT size criteria. Some calci fied lymph nodes noted along the lower paraesophageal region are unchanged. There are numerous scattered bilateral 8 mm and smaller pulmonary nodules on both sides. These are un changed. No new pulmonary nodules are seen. ABDOMEN: The liver is enlarged at 21.2 cm. Low-attenuation suggesting fatty infiltration. Several images sugge st very subtle contour nodularity. Correlate for underlying hepatic steatosis and possible early cirr hosis. No focal liver lesion is seen. The gallbladder is hydropic at 5.4 cm wide but without any surrounding inflammation. Portal venous sy stem is patent. No biliary ductal dilatation. Tiny 7 mm nodularity left adrenal gland appears to have been present on 08/20/2020. Right adrenal gland , and pancreas show no gross anomaly. A couple calcified granulomas within the spleen. Spleen is mildly enlarged at 14.7 cm. Benign 4.0 cm cyst mid left kidney. Benign 1.8 cm cortical cyst anterior right kidney. No dilated small bowel, free fluid, or free air. No mesenteric or retroperitoneal lymphadenopathy. Post surgical changes of partial right hemicolectomy with ileocolonic anastomosis at the upper ascend ing colon. Mild scattered stool is present. Most of the colon is collapsed. Scattered colonic diverti culosis, greatest in the sigmoid colon. Redundant sigmoid colon reaching across to the right lower qu adrant. No pericolic inflammatory change. PELVIS: Moderate circumferential bladder wall thickening. Prostatomegaly at 6.0 cm wide. Small pelvic phlebol iths. No abnormal fluid collection in the pelvis or pelvic lymphadenopathy. BONES: Mild degenerative change of the hips. Facet arthropathy mid to lower lumbar spine. 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 IMPRESSION: 1. STATUS POST PARTIAL RIGHT HEMICOLECTOMY WITH ILEOCOLONIC ANASTOMOSIS. 2. NUMEROUS SCATTERED BILATERAL PULMONARY NODULES MEASURING UP TO 8 MM REMAIN UNCHANGED. NO EVIDENCE FOR RECURRENT OR METASTATIC DISEASE. 3. SCATTERED COLONIC DIVERTICULOSIS, GREATEST IN THE REDUNDANT SIGMOID COLON. NO EVIDENCE FOR ACUTE D IVERTICULITIS. 4. HEPATOSPLENOMEGALY (LIVER 21.2 CM AND SPLEEN 14.7 CM). THERE IS UNDERLYING HEPATIC STEATOSIS. MATHEUS ELATE WITH LFT's, LIPID PROFILE, AND PATIENT RISK FACTORS. SOME IMAGES SUGGEST SUBTLE CONTOUR NODULAR ITY OF THE LIVER. FURTHER CORRELATION TO EXCLUDE EARLY CIRRHOSIS. 5. HYDROPIC GALLBLADDER LIKELY DUE TO FASTING STATE. IF ANY RIGHT UPPER QUADRANT PAIN DEVELOPS, ULTRA SOUND CAN BE CONSIDERED.
--- NOTE | 2022-03-10 12:13 | US ---
EXAMINATION TYPE: US thyroid st tissue head/neck DATE OF EXAM: 03/10/2022 COMPARISON: CLINICAL HISTORY: E04.1 THYROID NODULE. follow up thyroid nodule per order GLAND SIZE: Right Lobe: 5.3 x 2.4 x 3.2 cm Overall Parenchyma: heterogenous Left Lobe: 4.0 x 2.0 x 3.3 cm Overall Parenchyma: heterogeneous Isthmus Thickness: 0.9 cm NODULES RIGHT: # of nodules measured on right: 1 1. 1.6 x 1.6 x 1.3 cm, mid mid, TIRADS Score: 3 TIRADS Category 3: Mildly Suspicious Composition: Solid or almost completely solid (2 points). Echogenicity: Hyperechoic or isoechoic (1 point). Shape: Wider than tall (0 points). Margin: Ill-defined (0 points). Echogenic foci: None or large comet-tail artifacts (0 points) Recommendation: If >2.5cm: FNA; If >1.5cm: Follow up at 1,3,5 years LEFT: # of nodules measured on left: 0 ISTHMUS: # of nodules measured in the isthmus: 0 Bilateral neck scanned, no evidence of lymphadenopathy. IMPRESSION: Right thyroid nodule which meets criteria for follow-up.
== END | disposition home or self-care (01) ==
LOC: RADCTMAIN 08:59
PROVIDERS: ATTEND Internal Medicine Hematology & Oncology
DX: Z03.89 Encounter for observation for other suspected diseases and conditions ruled out (principal); C18.0 Malignant neoplasm of cecum; E04.1 Nontoxic single thyroid nodule
CPT/HCPCS: 82565; 84520; 76536; 71260; 74177; 36415; Q9967

== ENCOUNTER 2022-03-31 08:53 | Day surgery (SDC) | payer OTHER ==
[2022-03-31] MEDS ORDERED: ALPRAZolam 0.25 MG TAB PO STA (09:27)
[2022-03-31 09:42] VITALS: RESP 20; TEMP 97.8
[2022-03-31 10:30] VITALS: BP 123/84; PULSE 79
--- NOTE | 2022-03-31 10:45 | US ---
ULTRASOUND GUIDED CORE BIOPSY LEFT NECK MASS: CLINICAL HISTORY: Left neck mass FINDINGS: The procedure was explained to the patient. The risks, complications, benefits and alternatives were discussed and any questions were answered. Informed consent was obtained. Patient was placed supin e on the ultrasound table and prepped and draped in the usual sterile fashion. Utilizing a 25 gauge needle, five passes were made into the left neck mass. Patient was stable throughout the procedure. Pathology is pending. All elements of maximal barrier technique were utilized. IMPRESSION: 1. Successful ultrasound guided core biopsy left neck mass.
== END 2022-03-31 10:48 | disposition home or self-care (01) ==
LOC: RADPROMAIN 08:53
PROVIDERS: ATTEND Internal Medicine Hematology & Oncology
DX: L72.3 Sebaceous cyst (principal); R22.1 Localized swelling, mass and lump, neck
CPT/HCPCS: 21550; 88305

== ENCOUNTER 2022-08-14 11:08 | Emergency (ER) | payer OTHER, MEDICARE ==
[2022-08-14] MEDS ORDERED: fentaNYL (PF) 50 MCG/ML 2 ML AMP IVP STA ×2 (12:17→15:53)
--- NOTE | 2022-08-14 12:22 | ED ---
General Adult HPI - General Chief complaint: Headache Stated complaint: headache, double vision Time Seen by Provider: 08/14/22 11:40 Source: patient, family, RN notes reviewed, old records reviewed Mode of arrival: ambulatory Limitations: no limitations - History of Present Illness Initial comments: 72-year-old male alert and oriented 4 presents to emergency room with family complaining of headache behind his right eye with intermittent blurred vision. 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 He states his double vision has resolved at this time. He does have frontal headache. No other deficits. Does have chronic abdominal pain which she states has a history of colon cancer. Denies any fevers. No nausea vomiting or diarrhea. No chest pain or difficulty breathing. -: days(s) (2) Location: eyes (right) Severity scale (1-10): 6 Consistency: intermittent, now resolved Associated Symptoms: other (abdominal pain) - Related Data Home Medications Medication Instructions Recorded Confirmed [place] Carbonate [[place] 450 mg PO HS 01/15/14 08/14/22 Carbonate ER] Potassium Chloride [Klor-Con 20] 20 meq PO DAILY 01/15/14 08/14/22 Pravastatin Sodium [Pravachol] 40 mg PO HS 01/15/14 08/14/22 ziprasidone HCL [Ziprasidone HCl] 80 mg PO HS 01/15/14 08/14/22 allopurinoL [Zyloprim] 100 mg PO DAILY 07/28/15 08/14/22 Sertraline HCl [Zoloft] 150 mg PO DAILY 11/05/15 08/14/22 [place] Carbonate [[place] 300 mg PO DAILY 01/27/16 08/14/22 Carbonate ER] Rivaroxaban [Xarelto] 20 mg PO DAILY 07/27/17 08/14/22 Temazepam [Restoril] 15 mg PO HS 07/27/17 08/14/22 Nitroglycerin Sl Tabs [Nitrostat] 0.4 mg SUBLINGUAL Q5M PRN 08/01/17 08/14/22 Empagliflozin [Jardiance] 25 mg PO DAILY 06/10/21 08/14/22 Famotidine 20 mg PO DAILY 06/10/21 08/14/22 Insulin Glargine,Hum.rec.anlog 20 unit SQ AC-SUPPER 06/10/21 08/14/22 [Lantus Solostar Pen] Pantoprazole [Protonix] 40 mg PO BID 06/10/21 08/14/22 Dicyclomine [Bentyl] 20 mg PO TID PRN 03/21/22 08/14/22 Mirtazapine 15 mg PO HS 03/21/22 08/14/22 glipiZIDE [Glucotrol] 20 mg PO AC-BID 08/14/22 08/14/22 Allergies Allergy/AdvReac Type Severity Reaction Status Date / Time clopidogrel bisulfate Allergy Rash/Hives Verified 08/14/22 12:23 [From Plavix] Sulfa (Sulfonamide Allergy Rash/Hives Verified 08/14/22 12:23 Antibiotics) metformin AdvReac Diarrhea Verified 08/14/22 12:23 morphine AdvReac Hallucinati Verified 08/14/22 12:23 ons Review of Systems ROS Statement: Those systems with pertinent positive or pertinent negative responses have been documented in the HPI. ROS Other: All systems not noted in ROS Statement are negative. Past Medical History Past Medical History: Atrial Fibrillation, Coronary Artery Disease (CAD), Cancer, Heart Failure, Diabetes Mellitus, Eye Disorder, GERD/Reflux, GI Bleed, Hyperlipidemia, Hypertension, Myocardial Infarction (ID), Sleep Apnea/CPAP /BIPAP, Thyroid Disorder Additional Past Medical History / Comment(s): gout,skin ca, 01-15-14 double vision, recent influenza admisison, colon ca, hypercalcium Last Myocardial Infarction Date:: 2006 History of Any Multi-Drug Resistant Organisms: None Reported Past Surgical History: Appendectomy, Bowel Resection, Heart Catheterization With Stent, Orthopedic Surgery Additional Past Surgical History / Comment(s): skin ca removed, lt shoulder sx and rt knee sx, sinus sx(devaited septum) Past Anesthesia/Blood Transfusion Reactions: No Reported Reaction Date of Last Stent Placement:: 2006 Past Psychological History: Anxiety, Bipolar, Depression Smoking Status: Former smoker Past Alcohol Use History: Rare Past Drug Use History: Marijuana - Past Family History Father Family Medical History: Asthma, Hyperlipidemia Additional Family Medical History / Comment(s): at age 61. was a heavy smoker,prostate sx a week before he not sure what took him. Mother Family Medical History: Dementia Additional Family Medical History / Comment(s): at age 75 from alzheimers General Exam Limitations: no limitations General appearance: alert, in no apparent distress Head exam: Present: atraumatic, normocephalic, normal inspection Eye exam: Present: normal appearance, PERRL, EOMI. Absent: scleral icterus, conjunctival injection, nystagmus, periorbital swelling, periorbital tenderness ENT exam: Present: normal oropharynx, mucous membranes dry. Absent: mucous membranes moist Neck exam: Absent: tenderness, meningismus, lymphadenopathy Respiratory exam: Absent: respiratory distress, accessory muscle use Cardiovascular Exam: Present: regular rate GI/Abdominal exam: Present: soft. Absent: distended, tenderness, rigid Extremities exam: Present: normal capillary refill. Absent: pedal edema Neurological exam: Present: alert, oriented X3, CN II-XII intact Psychiatric exam: Present: normal affect, normal mood Skin exam: Present: warm, dry, normal color. Absent: cyanosis, diaphoretic, petechiae, pallor Course Vital Signs 08/14/22 08/14/22 08/14/22 11:10 14:39 16:18 Temperature 98 F 98.6 F Pulse Rate 63 67 68 Respiratory 20 22 20 Rate Blood Pressure 142/89 157/100 148/88 O2 Sat by Pulse 99 95 97 Oximetry Medical Decision Making - Medical Decision Making Patient presents with frontal headache and double vision of the right eye when he tips his head back, resolves when he looks straight ahead. States similar to when he had a ocular stroke 6 years ago. Right pupil 5mm, left 4mm. reactive to light and accommodation. No lesions noted to the lids and lashes. Patient does have a right-sided ptosis. Conju nctivae and sclerae are white. No evidence of hyphema. Unable to visualize retina. Extra ocular eye movements are intact. Patient denies pain with eye movement. 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 He did have cataract surgery with Dr. Schumacher 3 years ago. His last eye exam was at [facility] in [place] 2 years ago. He has not had an exam since NIH of 0, no focal neurological deficits. Rapid hand movements are intact. Patient has no focal neurological deficits CT of the brain interpreted by me shows no evidence of intracranial bleed, mass or midline shift. Radiologist interpretation age-related atrophic and chronic small vessel ischemic change without acute intracranial process seen at this time. Computed tomography scan she'll neck shows no significant stenosis in the common or internal carotid arteries bilaterally. No aneurysm at the level of the [place]. No aneurysm seen. No significant stenosis is present. Scattered small pulmonary nodules are redemonstrated in the visualized upper lungs and grossly stable from 03/10/2022 all measuring [address] the abdomen and pelvis performed without contrast due to patient's abdominal pain showing no suspicious new or acute findings present. CBC and electrolytes are unremarkable. No evidence of lactic acidosis. ESR 2. Previous hospital records show 02/13/2022 CT was performed mass like area located inferior aspect of left parotid gland which may actually be part of the parotid gland itself. May represent enlarged intraglandular lymph node or parotid gland neoplasm. 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 History of atrial fibrillation, coronary artery disease, colon cancer, congestive heart failure, diabetes, GERD, hypertension, cataract surgery, anxiety. I did speak with Dr. Cramer who states that patient can be seen in his office today. Patient was discharged prior to visual acuity being done. Patient was discharged to follow up with Dr. Cramer today and follow-up with primary care doctor this week. Patient and are agreeable to this plan of care. Case discussed with Dr. Kinsey. Was pt. sent in by a medical professional or institution (, PA, DRUG SAFETY ASSOCIATE, urgent care, hospital, or penitentiary...) When possible be specific @ -No Did you speak to anyone other than the patient for history (EMS, parent, family, police, friend...)? What history was obtained from this source @ -No Did you review nursing and triage notes (agree or disagree)? Why? @ -Patient with multiple complaints, including frontal headache, right eye double vision for 2 days, abdominal pain Were old charts reviewed (outside hosp., previous admission, EMS record, old EKG, old radiological studies, urgent care reports/EKG's, penitentiary records)? Report findings @ -Yes as above Differential Diagnosis (chest pain, altered mental status, abdominal pain women, abdominal pain men, vaginal bleeding, weakness, fever, dyspnea, syncope, headache, dizziness, GI bleed, back pain, seizure, CVA, palpatations, mental health, musculoskeletal)? @ -Differential Abdominal Pain Men: Appendicitis, cholecystitis, diverticulosis, ischemic bowel, pancreatitis, hepatitis, UTI, gastroenteritis, AAA, incarcerated hernia, bowel obstruction, constipation, inflammatory bowel, hepatitis, peptic ulcer disease, splenic infarction, perforated viscus, testicular torsion, this is not meant to be an all-inclusive list Differential Headache: Migraine, tension, cluster, carbon monoxide, central venous thrombosis, pension karma temporal arteritis, acute closure glaucoma, intercranial hemorrhage, mastoiditis, sinusitis, head injury, this is not meant to be an all-inclusive list. EKG interpreted by me (3pts min.). @ -n/a X-rays interpreted by me (1pt min.). @ -None done CT interpreted by me (1pt min.). @ -yes as above U/S interpreted by me (1pt. min.). @ -None done What testing was considered but not performed or refused? (CT, X-rays, U/S, la bs)? Why? @ -None What meds were considered but not given or refused? Why? @ -None Did you discuss the management of the patient with other professionals (professionals i.e. , PA, DRUG SAFETY ASSOCIATE, lab, RT, psych nurse, social research assistant, organizational effectiveness consultant, teacher, biological technical officer, immigration case worker)? Give summary @ -Yes Dr. Cramer with ophthalmology who is willing to see patient before he leaves the office today. Was smoking cessation discussed for >3mins.? @ -No Was critical care preformed (if so, how long)? @ -No Were there social determinants of health that impacted care today? How? (Homelessness, low income, unemployed, alcoholism, drug addiction, transportation, low edu. Level, literacy, decrease access to med. care, residential, r ehab)? @ -No Was there de-escalation of care discussed even if they declined (Discuss DNR or withdrawal of care, Hospice)? DNR status @ -No What co-morbidities impacted this encounter? (DM, HTN, Smoking, COPD, CAD, Cancer, CVA, ARF, Chemo, Hep., AIDS, mental health diagnosis, sleep apnea, morbid obesity)? @ -None Was patient admitted / discharged? Hospital course, mention meds given and route, prescriptions, significant lab abnormalities, going to OR and other pertinent info. @ -A. fib, coronary artery disease, congestive heart failure, diabetes, colon cancer, GERD, hypertension, left ocular stroke Undiagnosed new problem with uncertain prognosis? @ -No Drug Therapy requiring intensive monitoring for toxicity (Heparin, Nitro, Insulin, Cardizem)? @ -No Were any procedures done? @ -No Diagnosis/symptom? @ -Visual changes, headache, abdominal pain Acute, or Chronic, or Acute on Chronic? @ -Acute and acute on chronic abdominal pain Uncomplicated (without systemic symptoms) or Complicated (systemic symptoms)? @ -default Side effects of treatment? @ -No Exacerbation, Progression, or Severe Exacerbation? @ -No Poses a threat to life or bodily function? How? (Chest pain, [place], ID, pneumonia, PE, COPD, DKA, ARF, appy, cholecystitis, CVA, Diverticulitis, Homicidal, Suicidal, threat to staff... and all critical care pts) @ -No - Lab Data Result diagrams: 08/14/22 12:46 08/14/22 13:28 Lab Results 08/14/22 08/14/22 08/14/22 Range/Units 12:46 13:28 13:28 WBC 8.9 (3.8-10.6) k/uL RBC 5.83 (4.30-5.90) m/uL Hgb 17.5 (13.0-17.5) gm/dL Hct 54.4 H (39.0-53.0) % MCV 93.3 (80.0-100.0) fL MCH 30.1 (25.0-35.0) pg MCHC 32.2 (31.0-37.0) g/dL RDW 14.7 (11.5-15.5) % Plt Count 136 L (150-450) k/uL MPV 7.7 Neutrophils % 72 % Lymphocytes % 20 % Monocytes % 4 % Eosinophils % 2 % Basophils % 1 % Neutrophils # 6.4 (1.3-7.7) k/uL Lymphocytes # 1.8 (1.0-4.8) k/uL Monocytes # 0.4 (0-1.0) k/uL Eosinophils # 0.2 (0-0.7) k/uL Basophils # 0.1 (0-0.2) k/uL ESR 2 (0-15) mm/hr PT 10.8 (9.0-12.0) sec INR 1.0 (<1.2) Sodium 138 (137-145) mmol/L Potassium 4.6 (3.5-5.1) mmol/L Chloride 107 (98-107) mmol/L Carbon Dioxide 22 (22-30) mmol/L Anion Gap 9 mmol/L BUN 16 (9-20) mg/dL Creatinine 0.75 (0.66-1.25) mg/dL Est GFR (CKD-EPI)AfAm >90 (>60 ml/min/1.73 sqM) Est GFR (CKD-EPI)NonAf >90 (>60 ml/min/1.73 sqM) Glucose 145 H (74-99) mg/dL Plasma Lactic Acid Iván (0.7-2.0) mmol/L Calcium 10.2 (8.4-10.2) mg/dL Total Bilirubin 0.8 (0.2-1.3) mg/dL AST 30 (17-59) U/L ALT 28 (4-49) U/L Alkaline Phosphatase 83 (38-126) U/L Total Protein 7.0 (6.3-8.2) g/dL Albumin 4.2 (3.5-5.0) g/dL Amylase 146 H (30-110) U/L Lipase 208 (23-300) U/L 08/14/22 Range/Units 13:28 WBC (3.8-10.6) k/uL RBC (4.30-5.90) m/uL Hgb (13.0-17.5) gm/dL Hct (39.0-53.0) % MCV (80.0-100.0) fL MCH (25.0-35.0) pg MCHC (31.0-37.0) g/dL RDW (11.5-15.5) % Plt Count (150-450) k/uL MPV Neutrophils % % Lymphocytes % % Monocytes % % Eosinophils % % Basophils % % Neutrophils # (1.3-7.7) k/uL Lymphocytes # (1.0-4.8) k/uL Monocytes # (0-1.0) k/uL Eosinophils # (0-0.7) k/uL Basophils # (0-0.2) k/uL ESR (0-15) mm/hr PT (9.0-12.0) sec INR (<1.2) Sodium (137-145) mmol/L Potassium (3.5-5.1) mmol/L Chloride (98-107) mmol/L Carbon Dioxide (22-30) mmol/L Anion Gap mmol/L BUN (9-20) mg/dL Creatinine (0.66-1.25) mg/dL Est GFR (CKD-EPI)AfAm (>60 ml/min/1.73 sqM) Est GFR (CKD-EPI)NonAf (>60 ml/min/1.73 sqM) Glucose (74-99) mg/dL Plasma Lactic Acid Iván 1.3 (0.7-2.0) mmol/L Calcium (8.4-10.2) mg/dL Total Bilirubin (0.2-1.3) mg/dL AST (17-59) U/L ALT (4-49) U/L Alkaline Phosphatase (38-126) U/L Total Protein (6.3-8.2) g/dL Albumin (3.5-5.0) g/dL Amylase (30-110) U/L Lipase (23-300) U/L Disposition Clinical Impression: Double vision, Pain, eye, right, Headache, Abdominal pain Disposition: HOME SELF-CARE Condition: Good Instructions (If sedation given, give patient instructions): Acute Headache (ED), Eye Pain (ED), Diplopia (ED), Abdominal Pain (ED) Additional Instructions: Please follow-up with Dr. Cramer today as he is waiting the office for you. Follow-up with your primary care doctor regarding your abdominal pain. Return to the emergency room with any new or concerning symptoms Is patient prescribed a controlled substance at d/c from ED?: No Referrals: [facility] [Primary Care Provider] - 1-2 days Benigno Cramer MD [STAFF PHYSICIAN] - 1-2 days Time of Disposition: 16:10
[2022-08-14 13:08] LABS: Basophils # (A) 0.1 k/uL (0-0.2); Basophils % (A) 1 %; Eosinophils # (A) 0.2 k/uL (0-0.7); Eosinophils % (A) 2 %; HCT 54.4 % (39.0-53.0); HGB 17.5 gm/dL (13.0-17.5); Lymphocytes # (A) 1.8 k/uL (1.0-4.8); Lymphocytes % (A) 20 %; MCH 30.1 pg (25.0-35.0); MCHC 32.2 g/dL (31.0-37.0); MCV 93.3 fL (80.0-100.0); Mean Platelet Volume 7.7; Monocytes # (A) 0.4 k/uL (0-1.0); Monocytes % (A) 4 %; Neutrophils # (A) 6.4 k/uL (1.3-7.7); Neutrophils % (A) 72 %; Platelet Count 136 k/uL (150-450); RBC 5.83 m/uL (4.30-5.90); RDW 14.7 % (11.5-15.5); WBC 8.9 k/uL (3.8-10.6)
[2022-08-14 13:53] LABS: Erythrocyte Sedimentation Rate 2 mm/hr (0-15)
[2022-08-14 13:58] LABS: ALT 28 U/L (4-49); AST 30 U/L (17-59); African American GFR (CKD) >90 (>60 ml/min/1.73 sqM); Albumin 4.2 g/dL (3.5-5.0); Alkaline Phosphatase 83 U/L (38-126); Amylase 146 U/L (30-110); Anion Gap 9 mmol/L; Blood Urea Nitrogen 16 mg/dL (9-20); Calcium 10.2 mg/dL (8.4-10.2); Carbon Dioxide 22 mmol/L (22-30); Chloride 107 mmol/L (98-107); Glucose 145 mg/dL (74-99); Lipase 208 U/L (23-300); Non-African American GFR(CKD) >90 (>60 ml/min/1.73 sqM); Potassium 4.6 mmol/L (3.5-5.1); Sodium 138 mmol/L (137-145); Total Bilirubin 0.8 mg/dL (0.2-1.3)
[2022-08-14 13:59] LABS: Prothrombin Time 10.8 sec (9.0-12.0)
[2022-08-14] MEDS ORDERED: ONDANSETRON 4 MG/2 ML VIAL IVP STA (14:34)
--- NOTE | 2022-08-14 15:12 | CT ---
EXAMINATION TYPE: CT brain wo con DATE OF EXAM: 08/14/2022 COMPARISON: 01/15/14 HISTORY: double vision CT DLP: [address] of the brain was performed. The ventricles, basal cisterns and sulci overlying the cerebral convexities demonstrate mild enlargem ent. There is no evidence for intracranial hemorrhage or sulcal effacement. There is decreased attenuation about the periventricular white matter and deep white matter of both c erebral hemispheres, compatible with chronic small vessel ischemia. Differential diagnosis does inclu de demyelination. No mass effects are seen.No midline shift. Osseous calvarium is intact. If symptoms persist consider MRI. IMPRESSION: 1. Age related atrophic and chronic small vessel ischemic change without acute intracranial process s een at this time.
--- NOTE | 2022-08-14 15:17 | CT ---
EXAMINATION TYPE: CT abdomen pelvis wo con DATE OF EXAM: 08/14/2022 HISTORY: abd pain. History of malignant neoplasm of cecum. CT DLP: 1549.2 mGycm. Automated Exposure Control for Dose Reduction was Utilized. TECHNIQUE: CT scan of the abdomen and pelvis is performed without oral or IV contrast. COMPARISON: Prior CT March 10, 2022 FINDINGS: Within the limitations of a non-contrast study, the following observations are made. LUNG BASES: Stable 5 mm peripheral right middle lobe nodule or nodular scarring axial image 2. [place] ry artery calcification in the RCA is redemonstrated LIVER/GB: Visualized liver remains heterogeneously hypodense suggesting diffuse fatty infiltration. PANCREAS: No significant abnormality is seen. SPLEEN: Mild splenomegaly of 14.3 cm coronal image 95 is redemonstrated. Occasional punctate calcific ation consistent with product of old granulomatous disease is redemonstrated. ADRENALS: Subcentimeter nodularity left adrenal gland axial image 28 is stable and presumed benign. KIDNEYS: Cortical thinning both kidneys. There is 3.7 cm simple appearing thin-walled cyst mid pole l evel left kidney coronal image 91 redemonstrated. BOWEL: Diverticulosis in the left and sigmoid colon are again seen. No CT evidence for acute diverti culitis. Partial proximal colectomy changes with bowel anastomosis is redemonstrated. No suspicious s mall or large bowel dilatation. GENITAL ORGANS: Enlarged prostate consistent with BPH is redemonstrated. LYMPH NODES: No greater than 1cm abdominal or pelvic lymph nodes are appreciated. OSSEOUS STRUCTURES: Anterior bridging osteophytes in the lower thoracic spine are again seen. OTHER: No significant additional abnormality is seen. IMPRESSION: No suspicious new or acute findings are present.
--- NOTE | 2022-08-14 15:34 | CT ---
EXAMINATION TYPE: CT angio head neck DATE OF EXAM: 08/14/2022 HISTORY: double vision COMPARISON: CT neck February 13, 2022 CT DLP: 1088 mGycm. Automated Exposure Control for Dose Reduction was Utilized. TECHNIQUE: CTA scan of the head and neck is performed with IV Contrast, patient injected with 65 mL of Isovue 370, axial images are obtained, coronal and sagittal reformatted images are reviewed. 3D re constructed images are created on an independent workstation and reviewed. FINDINGS: Carotid/Vascular Structures: Normal 3 vessel origin from the aortic arch. No significant stenosis in the common or internal carotid arteries . No significant plaque at carotid bulb level bilaterally. Pa tent external carotid arteries bilaterally without significant stenosis. Portable arteries are patent to the basilar junction. Left vertebral artery is larger caliber or cassidy nant. There are patent bilateral posterior communicating arteries. No significant focal stenosis or a neurysm in the posterior circulation. Images of the anterior circulation show small-caliber proximal anterior cerebral artery on the left and nonvisualized or hypoplastic anterior communicating artery. The anterior cerebral artery becomes hypoplastic or occluded distally. This is then branching with 2 vessels in the high anterior interlobar fissure coming off the right anterior cerebral artery. This h as similar appearance to the prior neck CT. No new significant stenosis is present. No aneurysm is se en. Other: Scattered small pulmonary nodules are redemonstrated in the visualized upper lungs and grossly stable from CT March 10, 2022 all measuring under 6 mm in size. Correlate clinically. Heterogeneous slightly more prominent in size parotid glands is not seen. Correlate clinically to exc lude parotitis. Significant portion of maxillary teeth are absent similar to prior. IMPRESSION: No significant stenosis in common or internal carotid arteries bilaterally. No aneurysm at the level of the [place]. NASCET criteria was used in interpretation of this exam?
[2022-08-14 16:19] VITALS: BP 148/88; PULSE 68; RESP 20; TEMP 98.6
== END 2022-08-14 16:29 | disposition home or self-care (01) ==
LOC: EC 11:08
DX: H53.2 Diplopia (principal); R10.9 Unspecified abdominal pain; F12.90 Cannabis use, unspecified, uncomplicated; E11.9 Type 2 diabetes mellitus without complications; I11.0 Hypertensive heart disease with heart failure; I50.9 Heart failure, unspecified; E78.5 Hyperlipidemia, unspecified; K21.9 Gastro-esophageal reflux disease without esophagitis; F41.9 Anxiety disorder, unspecified; F32.A Depression, unspecified; Z88.8 Allergy status to other drugs, medicaments and biological substances; Z88.2 Allergy status to sulfonamides; Z90.89 Acquired absence of other organs; Z95.5 Presence of coronary angioplasty implant and graft; Z79.84 Long term (current) use of oral hypoglycemic drugs; Z87.891 Personal history of nicotine dependence; Z79.4 Long term (current) use of insulin; Z79.899 Other long term (current) drug therapy
CPT/HCPCS: 99284 ×2; 96374 ×2; 96375; 36415; 80053; 85652; 82150; 83605; 83690; 85025; 85610; 70496; 70450; 70498; 74176; 96376; J2405; J3010; Q9967

== ENCOUNTER → 2022-11-29 | Outpatient (CLI) | payer OTHER ==
--- NOTE | 2022-12-01 07:51 | MR ---
EXAMINATION TYPE: MR foot RT wo con DATE OF EXAM: 11/29/2022 COMPARISON: Radiograph 09/29/2022 HISTORY: 72-year-old male L97.512 E11.42 L03.115, Rt foot, big toe open wound, evaluate for bone infe ction TECHNIQUE: Multiplanar, multisequence images cone-down to the right right forefoot and midfoot were o btained without IV contrast. FINDINGS: There is moderate to severe degenerative change of the first MTP joint. Associated small joint effusi on. Additional degenerative changes at the first metatarsal sesamoid joints. There is generalized soft tissue swelling. No discrete bone marrow replacement or suspicious osseous edema is seen. Some mild degenerative subch ondral signal change along the medial aspect of the first MTP joint on a degenerative basis. Addition al subchondral degenerative signal changes at the second metatarsal head of the second MTP joint. IMPRESSION: 1. 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 Mild to moderate second MTP joint only. 2. No suspicious bone marrow replacement to indicate osteomyelitis at this time. Particular attention to the great toe.
== END | disposition home or self-care (01) ==
LOC: RADMRIMAIN 06:59
PROVIDERS: ATTEND Podiatrist Foot & Ankle Surgery
DX: M19.071 Primary osteoarthritis, right ankle and foot (principal); E11.621 Type 2 diabetes mellitus with foot ulcer; E11.42 Type 2 diabetes mellitus with diabetic polyneuropathy; L97.512 Non-pressure chronic ulcer of other part of right foot with fat layer exposed; L03.115 Cellulitis of right lower limb

== ENCOUNTER → 2023-02-21 | Outpatient (CLI) | payer OTHER ==
[2023-02-21 14:19] LABS: African American GFR (CKD) >90 (>60 ml/min/1.73 sqM); Blood Urea Nitrogen 16 mg/dL (9-20); Non-African American GFR(CKD) >90 (>60 ml/min/1.73 sqM)
--- NOTE | 2023-02-21 18:14 | CT ---
EXAMINATION TYPE: CT ChestAbdPelvis w con CT DLP: 2834.0 mGycm, Automated exposure control for dose reduction was used. DATE OF EXAM: 02/21/2023 3:56 PM COMPARISON: 03/10/2022 and priors. 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 Two-dimensional cor onal and sagittal reconstructions were obtained. Contrast used:100 cc mL of Isovue 300 with IV Contrast, Oral contrast used: with Oral Contrast Findings: CHEST: LUNGS/ PLEURA: No evidence for focal consolidation, pneumothorax or pleural effusion. Scattered pulmo nary nodules are seen throughout the lungs. These are not significantly changed from 03/10/2022. AIRWAY: Patent and unremarkable. HEART: The heart is mildly enlarged for size. Moderate atherosclerosis of the coronary vasculature. MEDIASTINUM: No gross evidence of adenopathy. VASCULATURE: No aortic aneurysm. MUSCULOSKELETAL: No acute osseous abnormalities. SOFT TISSUES/LYMPH NODES: Unremarkable. LOWER NECK: No significant findings. ABDOMEN: ABDOMEN LIVER: Liver remains enlarged for size measuring up to 8 mm in transverse dimension. No liver masses definitively visualized. GALLBLADDER AND BILE DUCTS: Unremarkable. PANCREAS: Unremarkable. SPLEEN: Scattered calcified granulomas. The spleen is enlarged for size measuring 14.6 cm. ADRENAL GLANDS: Unremarkable. KIDNEYS AND URETERS: No evidence of hydronephrosis or renal calculus. The ureters are unremarkable. Simple appearing left renal cyst. PELVIS BLADDER: Unremarkable REPRODUCTIVE: Prostate is enlarged in size measuring 6.7 cm in transverse dimension. ABDOMEN & PELVIS STOMACH AND BOWEL: No evidence of bowel obstruction. Scattered colonic diverticulosis. Postsurgical c hanges to the ascending colon/cecum. PERITONEUM: No evidence of pneumoperitoneum or free fluid. VASCULATURE: No evidence of aortic aneurysm. MUSCULOSKELETAL: No acute osseous abnormalities. Mild disc degeneration changes are present throughou t the thoracolumbar spine. LYMPH NODES: No gross evidence for lymphadenopathy. SOFT TISSUE/ABDOMINAL WALL: Unremarkable IMPRESSION: 1. No evidence for recurrence. There remains scattered pulmonary nodules which have a similar appear ance compared to prior's. 2. Cardiomegaly with moderate coronary artery atherosclerosis. 3. Postsurgical changes to the ascending colon/cecum without evidence of recurrent mass. 4. Similar hepatosplenomegaly.
== END | disposition home or self-care (01) ==
LOC: RADCTMAIN 13:35
PROVIDERS: ATTEND Internal Medicine Hematology & Oncology
DX: C18.0 Malignant neoplasm of cecum (principal); I25.10 Atherosclerotic heart disease of native coronary artery without angina pectoris; R16.2 Hepatomegaly with splenomegaly, not elsewhere classified; R91.8 Other nonspecific abnormal finding of lung field; I51.7 Cardiomegaly; Z90.49 Acquired absence of other specified parts of digestive tract
CPT/HCPCS: 82565; 84520; 71260; 74177; 36415; Q9967

== ENCOUNTER 2023-06-01 10:05 | Emergency (ER) | payer OTHER, MEDICARE ==
[2023-06-01 10:15] VITALS: TEMP 97.8
[2023-06-01 10:45] LABS: Basophils # (A) 0.1 k/uL (0-0.2); Basophils % (A) 1 %; Eosinophils # (A) 0.1 k/uL (0-0.7); Eosinophils % (A) 2 %; HCT 53.9 % (39.0-53.0); HGB 16.8 gm/dL (13.0-17.5); Hypochromasia Moderate; Lymphocytes % (A) 24 %; MCH 27.9 pg (25.0-35.0); MCHC 31.1 g/dL (31.0-37.0); MCV 89.8 fL (80.0-100.0); Mean Platelet Volume 8.1; Monocytes # (A) 0.3 k/uL (0-1.0); Monocytes % (A) 3 %; Neutrophils # (A) 5.9 k/uL (1.3-7.7); Neutrophils % (A) 70 %; Platelet Count 159 k/uL (150-450); RDW 15.8 % (11.5-15.5); WBC 8.4 k/uL (3.8-10.6)
[2023-06-01] MEDS ORDERED: ONDANSETRON 4 MG/2 ML VIAL IVP STA (11:19)
[2023-06-01] MEDS ORDERED: KETOROLAC 15 MG/ML 1 ML VIAL IVP STA (11:19)
--- NOTE | 2023-06-01 11:19 | ED ---
Abdominal Pain HPI - General Source: patient, RN notes reviewed Mode of arrival: ambulatory Limitations: no limitations <Cheryl Rubin - Last Filed: 06/01/23 11:15> <Daija Smith - Last Filed: 06/13/23 06:28> - General Chief Complaint: Abdominal Pain Stated Complaint: abd pain Time Seen by Provider: 06/01/23 11:16 - History of Present Illness Initial Comments: Patient is a 72-year-old male presented ER chief complaint of abdominal pain. Patient does have a history of colon cancer with resection. Patient states for the last 10 days he's been having chills, diarrhea and extreme abdominal pain. Patient does state that he had a colonoscopy which was negative recently. (Cheryl Rubin) 72-year-old male with past medical history of colon cancer who presents to the emergency department reporting abdominal pain. Patient had colon cancer 7 years ago and had resection. He has been in remission. States that he does have chronic pain for which she has been told that this is due to adhesions. States that over the past week he has had worsening lower abdominal pain. Denies any changes in his bowel or bladder habits. No fevers. He is not currently taking anything at home for the pain. States his last colonoscopy was 6 months ago and was negative. Surgeon is from [facility]. No other alleviating, precipitating modifying factors (Daija Smith) - Related Data Home Medications Medication Instructions Recorded Confirmed [place] Carbonate [[place] 450 mg PO HS 01/15/14 09/29/22 Carbonate ER] Potassium Chloride [Klor-Con 20] 20 meq PO DAILY 01/15/14 09/29/22 Pravastatin Sodium [Pravachol] 40 mg PO HS 01/15/14 09/29/22 ziprasidone HCL [Ziprasidone HCl] 80 mg PO HS 01/15/14 09/29/22 allopurinoL [Zyloprim] 100 mg PO HS 07/28/15 09/29/22 Sertraline HCl [Zoloft] 150 mg PO DAILY 11/05/15 09/29/22 [place] Carbonate [[place] 300 mg PO DAILY 01/27/16 09/29/22 Carbonate ER] Rivaroxaban [Xarelto] 20 mg PO DAILY 07/27/17 09/29/22 Temazepam [Restoril] 30 mg PO HS 07/27/17 09/29/22 Empagliflozin [Jardiance] 25 mg PO DAILY 06/10/21 09/29/22 Famotidine 20 mg PO DAILY 06/10/21 09/29/22 Insulin Glargine,Hum.rec.anlog 20 unit SQ AC-SUPPER@1800 06/10/21 09/29/22 [Lantus Solostar Pen] Pantoprazole [Protonix] 40 mg PO BID 06/10/21 09/29/22 Dicyclomine [Bentyl] 20 mg PO TID PRN 03/21/22 09/29/22 Mirtazapine 15 mg PO HS 03/21/22 09/29/22 glipiZIDE [Glucotrol] 20 mg PO AC-BID 08/14/22 09/29/22 Previous Rx's Medication Instructions Recorded Doxycycline [Vibramycin] 100 mg PO BID 5 Days #10 capsule 10/01/22 carvediloL [Coreg] 3.125 mg PO BID-W/MEALS #60 tab 10/01/22 lisinopriL [Zestril] 20 mg PO DAILY #30 tab 10/01/22 HYDROcodone/APAP 7.5-325MG [[place] 1 tab PO Q4HR PRN 3 Days #18 tab 06/01/23 7.5-325] Allergies Allergy/AdvReac Type Severity Reaction Status Date / Time clopidogrel bisulfate Allergy Rash/Hives Verified 09/29/22 17:43 [From Plavix] Sulfa (Sulfonamide Allergy Rash/Hives Verified 06/01/23 10:12 Antibiotics) metformin AdvReac Diarrhea Verified 06/01/23 10:12 morphine AdvReac Hallucinati Verified 06/01/23 10:12 ons Review of Systems ROS Other: All systems not noted in ROS Statement are negative. <Cheryl Rubin - Last Filed: 06/01/23 11:15> ROS Other: All systems not noted in ROS Statement are negative. <Daija Smith - Last Filed: 06/13/23 06:28> ROS Statement: Those systems with pertinent positive or pertinent negative responses have been documented in the HPI. Past Medical History Past Medical History: Atrial Fibrillation, Coronary Artery Disease (CAD), Cancer, Heart Failure, Diabetes Mellitus, Eye Disorder, GERD/Reflux, GI Bleed, Hyperlipidemia, Hypertension, Myocardial Infarction ([place]), Sleep Apnea/CPAP/BIPAP, Thyroid Disorder Additional Past Medical History / Comment(s): gout,skin ca, 01-15-14 double vision, recent influenza admisison, colon ca, hypercalcium Last Myocardial Infarction Date:: 2006 History of Any Multi-Drug Resistant Organisms: None Reported Past Surgical History: Appendectomy, Bowel Resection, Heart Catheterization With Stent, Orthopedic Surgery Additional Past Surgical History / Comment(s): skin ca removed, lt shoulder sx and rt knee sx, sinus sx(devaited septum) Past Anesthesia/Blood Transfusion Reactions: No Reported Reaction Date of Last Stent Placement:: 2006 Past Psychological History: Anxiety, Bipolar, Depression Past Drug Use History: Marijuana - Past Family History Father Family Medical History: Asthma, Hyperlipidemia Additional Family Medical History / Comment(s): at age 61. was a heavy smoker,prostate sx a week before he not sure what took him. Mother Family Medical History: Dementia Additional Family Medical History / Comment(s): at age 75 from alzheimers <Cheryl Rubin - Last Filed: 06/01/23 11:15> General Exam Limitations: no limitations <Cheryl Rubin - Last Filed: 06/01/23 11:15> General appearance: alert, in no apparent distress Head exam: Present: atraumatic, normocephalic, normal inspection Eye exam: Present: normal appearance, PERRL, EOMI. Absent: scleral icterus, conjunctival injection, periorbital swelling ENT exam: Present: normal exam, mucous membranes moist Neck exam: Present: normal inspection. Absent: tenderness, meningismus, lymphadenopathy Respiratory exam: Present: normal lung sounds bilaterally. Absent: respiratory distress, wheezes, rales, rhonchi, stridor Cardiovascular Exam: Present: regular rate, normal rhythm, normal heart sounds. Absent: systolic murmur, diastolic murmur, rubs, gallop, clicks GI/Abdominal exam: Present: tenderness (llq and rlq abd pain), normal bowel sounds. Absent: distended, guarding, rebound, rigid Extremities exam: Present: normal inspection, full ROM, normal capillary refill. Absent: tenderness, pedal edema, joint swelling, calf tenderness Back exam: Present: normal inspection Neurological exam: Present: alert, oriented X3, CN II-XII intact Psychiatric exam: Present: normal affect, normal mood Skin exam: Present: warm, dry, intact, normal color. Absent: rash <Daija Smith - Last Filed: 06/13/23 06:28> - General Exam Comments Initial Comments: Visual Physical Exam Vital signs reviewed General: Well-appearing, nontoxic, no acute distress. Head: Normocephalic, atraumatic Eyes: PERRLA, EOMI ENT: Airway patent Chest: Nonlabored breathing Skin: No visual rash, normal skin tone Neuro: Alert and oriented 3 Musculoskeletal: No gross abnormalities (Cheryl Rubin) Course Vital Signs 06/01/23 06/01/23 06/01/23 10:09 12:15 15:52 Temperature 97.8 F Pulse Rate 55 L 62 56 L Respiratory 18 22 20 Rate Blood Pressure 159/79 140/85 151/94 O2 Sat by Pulse 100 98 100 Oximetry Medical Decision Making - Lab Data Result diagrams: 06/01/23 10:40 <Cheryl Rubin - Last Filed: 06/01/23 11:15> - Lab Data Result diagrams: 06/01/23 10:40 06/01/23 10:40 <Daija Smith - Last Filed: 06/13/23 06:28> - Medical Decision Making I performed the quick note portion of the exam. Electronically signed by Cheryl Rubin PA-C (Cheryl Rubin) Was pt. sent in by a medical professional or institution ([facility], [employer], urgent care, hospital, or retirement...) When possible be specific @ -No Did you speak to anyone other than the patient for history (EMS, parent, family, police, friend...)? What history was obtained from this source @ -No Did you review nursing and triage notes (agree or disagree)? Why? @ -I reviewed and agree with nursing and triage notes Were old charts reviewed (outside hosp., previous admission, EMS record, old EKG, old radiological studies, urgent care reports/EKG's, retirement records)? Report findings @ -No old charts were reviewed Differential Diagnosis (chest pain, altered mental status, abdominal pain women, abdominal pain men, vaginal bleeding, weakness, fever, dyspnea, syncope, headache, dizziness, GI bleed, back pain, seizure, CVA, palpatations, mental health, musculoskeletal)? @ Differential Abdominal Pain Men: Appendicitis, cholecystitis, diverticulosis, ischemic bowel, pancreatitis, hepatitis, UTI, gastroenteritis, AAA, incarcerated hernia, bowel obstruction, constipation, inflammatory bowel, hepatitis, peptic ulcer disease, splenic inf arction, perforated viscus, testicular torsion, this is not meant to be an all- inclusive list EKG interpreted by me (3pts min.). @ -Not done X-rays interpreted by me (1pt min.). @ -None done CT interpreted by me (1pt min.). @ -yes, possible mild proctitis U/S interpreted by me (1pt. min.). @ -None done What testing was considered but not performed or refused? (CT, X-rays, U/S, labs)? Why? @ -None What meds were considered but not given or refused? Why? @ -None Did you discuss the management of the patient with other professionals (professionals i.e. , PA, [employer], lab, RT, psych nurse, child protective services social worker, genetics nurse, teacher, business banking officer, medical case worker)? Give summary @ -Dr. rodriguez who agreed to come see the patient Was smoking cessation discussed for >3mins.? @ -No Was critical care preformed (if so, how long)? @ -No Were there social determinants of health that impacted care today? How? (Homelessness, low income, unemployed, alcoholism, drug addiction, transportation, low edu. Level, literacy, decrease access to med. care, [place] [facility], rehab)? @ -No Was there de-escalation of care discussed even if they declined (Discuss DNR or withdrawal of care, Hospice)? DNR status @ -No What co-morbidities impacted this encounter? (DM, HTN, Smoking, COPD, CAD, Cancer, CVA, ARF, Chemo, Hep., AIDS, mental health diagnosis, sleep apnea, morbid obesity)? @ -colon ca Was patient admitted / discharged? Hospital course, mention meds given and route, prescriptions, significant lab abnormalities, going to OR and other pertinent info. @ -Upon arrival patient was placed in room 23. A thorough history and physical exam was performed. He was given a dose of Toradol for pain control. Laboratory studies are conducted. Patient does go for CT. Upon review of the results they are discussed the patient. He does have considerable pain and therefore he was given a dose of Dilaudid. Patient given IV fluids due to his lactic acidosis. Did discuss results with the patient. Due to continued pain I did speak with on-call surgeon. Dr. Rodriguez states that she will come evaluate the patient emergency department. Spoke with the patient about this however he states he wants to go home at this time. He needs to follow-up with his own surgeon in regards to his pain and return for any new or worsening symptoms. Patient agreeable to this was discharged in stable condition Undiagnosed new problem with uncertain prognosis? @ -yes Drug Therapy requiring intensive monitoring for toxicity (Heparin, Nitro, Insulin, Cardizem)? @ -No Were any procedures done? @ -No Diagnosis/symptom? @ -acute exacerbation of chronic abdominal pain Acute, or Chronic, or Acute on Chronic? @ -acute on chronic Uncomplicated (without systemic symptoms) or Complicated (systemic symptoms)? @ -complicated Side effects of treatment? @ -No Exacerbation, Progression, or Severe Exacerbation? @ -yes Poses a threat to life or bodily function? How? (Chest pain, [place], [place], pneumonia, PE, COPD, DKA, ARF, appy, cholecystitis, CVA, Diverticulitis, Homicidal, Suicidal, threat to staff... and all critical care pts) @ -No (Daija Smith) - Lab Data Lab Results 06/01/23 06/01/23 06/01/23 Range/Units 10:40 10:40 10:40 WBC 8.4 (3.8-10.6) k/uL RBC 6.00 H (4.30-5.90) m/uL Hgb 16.8 (13.0-17.5) gm/dL Hct 53.9 H (39.0-53.0) % MCV 89.8 (80.0-100.0) fL MCH 27.9 (25.0-35.0) pg MCHC 31.1 (31.0-37.0) g/dL RDW 15.8 H (11.5-15.5) % Plt Count 159 (150-450) k/uL MPV 8.1 Neutrophils % 70 % Lymphocytes % 24 % Monocytes % 3 % Eosinophils % 2 % Basophils % 1 % Neutrophils # 5.9 (1.3-7.7) k/uL Lymphocytes # 2.0 (1.0-4.8) k/uL Monocytes # 0.3 (0-1.0) k/uL Eosinophils # 0.1 (0-0.7) k/uL Basophils # 0.1 (0-0.2) k/uL Hypochromasia Moderate Sodium 138 (137-145) mmol/L Potassium 4.2 (3.5-5.1) mmol/L Chloride 103 (98-107) mmol/L Carbon Dioxide 21 L (22-30) mmol/L Anion Gap 14 mmol/L BUN 12 (9-20) mg/dL Creatinine 0.94 (0.66-1.25) mg/dL Est GFR (CKD-EPI)AfAm >90 (>60 ml/min/1.73 sqM) Est GFR (CKD-EPI)NonAf 82 (>60 ml/min/1.73 sqM) Glucose 230 H (74-99) mg/dL Lactic Ac Sepsis Rflx Plasma Lactic Acid Iván 2.9 H* (0.7-2.0) mmol/L Calcium 10.2 (8.4-10.2) mg/dL Total Bilirubin 0.8 (0.2-1.3) mg/dL AST 26 (17-59) U/L ALT 22 (4-49) U/L Alkaline Phosphatase 94 (38-126) U/L Total Protein 7.5 (6.3-8.2) g/dL Albumin 4.6 (3.5-5.0) g/dL Amylase 111 H (30-110) U/L Lipase 131 (23-300) U/L Urine Color Urine Appearance (Clear) Urine pH (5.0-8.0) Ur Specific [place] (1.001-1.035) Urine Protein (Negative) Urine Glucose (UA) (Negative) Urine Ketones (Negative) Urine Blood (Negative) Urine Nitrite (Negative) Urine Bilirubin (Negative) Urine Urobilinogen (<2.0) mg/dL Ur Leukocyte Esterase (Negative) 06/01/23 06/01/23 06/01/23 Range/Units 11:01 11:36 14:29 WBC (3.8-10.6) k/uL RBC (4.30-5.90) m/uL Hgb (13.0-17.5) gm/dL Hct (39.0-53.0) % MCV (80.0-100.0) fL MCH (25.0-35.0) pg MCHC (31.0-37.0) g/dL RDW (11.5-15.5) % Plt Count (150-450) k/uL MPV Neutrophils % % Lymphocytes % % Monocytes % % Eosinophils % % Basophils % % Neutrophils # (1.3-7.7) k/uL Lymphocytes # (1.0-4.8) k/uL Monocytes # (0-1.0) k/uL Eosinophils # (0-0.7) k/uL Basophils # (0-0.2) k/uL Hypochromasia Sodium (137-145) mmol/L Potassium (3.5-5.1) mmol/L Chloride (98-107) mmol/L Carbon Dioxide (22-30) mmol/L Anion Gap mmol/L BUN (9-20) mg/dL Creatinine (0.66-1.25) mg/dL Est GFR (CKD-EPI)AfAm (>60 ml/min/1.73 sqM) Est GFR (CKD-EPI)NonAf (>60 ml/min/1.73 sqM) Glucose (74-99) mg/dL Lactic Ac Sepsis Rflx Y Plasma Lactic Acid Iván 3.2 H* (0.7-2.0) mmol/L Calcium (8.4-10.2) mg/dL Total Bilirubin (0.2-1.3) mg/dL AST (17-59) U/L ALT (4-49) U/L Alkaline Phosphatase (38-126) U/L Total Protein (6.3-8.2) g/dL Albumin (3.5-5.0) g/dL Amylase (30-110) U/L Lipase (23-300) U/L Urine Color Colorless Urine Appearance Clear (Clear) Urine pH 6.0 (5.0-8.0) Ur Specific [place] 1.025 (1.001-1.035) Urine Protein Negative (Negative) Urine Glucose (UA) 4+ H (Negative) Urine Ketones Negative (Negative) Urine Blood Negative (Negative) Urine Nitrite Negative (Negative) Urine Bilirubin Negative (Negative) Urine Urobilinogen <2.0 (<2.0) mg/dL Ur Leukocyte Esterase Negative (Negative) 06/01/23 Range/Units 14:54 WBC (3.8-10.6) k/uL RBC (4.30-5.90) m/uL Hgb (13.0-17.5) gm/dL Hct (39.0-53.0) % MCV (80.0-100.0) fL MCH (25.0-35.0) pg MCHC (31.0-37.0) g/dL RDW (11.5-15.5) % Plt Count (150-450) k/uL MPV Neutrophils % % Lymphocytes % % Monocytes % % Eosinophils % % Basophils % % Neutrophils # (1.3-7.7) k/uL Lymphocytes # (1.0-4.8) k/uL Monocytes # (0-1.0) k/uL Eosinophils # (0-0.7) k/uL Basophils # (0-0.2) k/uL Hypochromasia Sodium (137-145) mmol/L Potassium (3.5-5.1) mmol/L Chloride (98-107) mmol/L Carbon Dioxide (22-30) mmol/L Anion Gap mmol/L BUN (9-20) mg/dL Creatinine (0.66-1.25) mg/dL Est GFR (CKD-EPI)AfAm (>60 ml/min/1.73 sqM) Est GFR (CKD-EPI)NonAf (>60 ml/min/1.73 sqM) Glucose (74-99) mg/dL Lactic Ac Sepsis Rflx Y Plasma Lactic Acid Iván (0.7-2.0) mmol/L Calcium (8.4-10.2) mg/dL Total Bilirubin (0.2-1.3) mg/dL AST (17-59) U/L ALT (4-49) U/L Alkaline Phosphatase (38-126) U/L Total Protein (6.3-8.2) g/dL Albumin (3.5-5.0) g/dL Amylase (30-110) U/L Lipase (23-300) U/L Urine Color Urine Appearance (Clear) Urine pH (5.0-8.0) Ur Specific [place] (1.001-1.035) Urine Protein (Negative) Urine Glucose (UA) (Negative) Urine Ketones (Negative) Urine Blood (Negative) Urine Nitrite (Negative) Urine Bilirubin (Negative) Urine Urobilinogen (<2.0) mg/dL Ur Leukocyte Esterase (Negative) Disposition <VirithomasCheryl - Last Filed: 06/01/23 11:15> Is patient prescribed a controlled substance at d/c from ED?: Yes When asked, does pt state using other controlled substances?: No If prescribed controlled substance>3 days was MAPS reviewed?: Prescribed <3 Days If opioid is for acute pain is fill amount 7 days or less?: Yes If Rx opioid, was Start Talking consent form obtained?: No Time of Disposition: 15:20 <Daija Smith - Last Filed: 06/13/23 06:28> Clinical Impression: Lactic acidosis, Abdominal pain Disposition: HOME SELF-CARE Condition: Stable Instructions (If sedation given, give patient instructions): Abdominal Pain (ED) Additional Instructions: Please use the pain medication sparingly. If you have worsening symptoms, return to the ER. Follow-up with your doctor for further evaluation of your symptoms Prescriptions: HYDROcodone/APAP 7.5-325MG [[place] 7.5-325] 1 tab PO Q4HR PRN 3 Days #18 tab PRN Reason: Pain Referrals: [facility],Clinic [Primary Care Provider] - 1-2 days
[2023-06-01 11:34] LABS: ALT 22 U/L (4-49); AST 26 U/L (17-59); African American GFR (CKD) >90 (>60 ml/min/1.73 sqM); Albumin 4.6 g/dL (3.5-5.0); Alkaline Phosphatase 94 U/L (38-126); Amylase 111 U/L (30-110); Anion Gap 14 mmol/L; Blood Urea Nitrogen 12 mg/dL (9-20); Calcium 10.2 mg/dL (8.4-10.2); Carbon Dioxide 21 mmol/L (22-30); Chloride 103 mmol/L (98-107); Glucose 230 mg/dL (74-99); Lipase 131 U/L (23-300); Non-African American GFR(CKD) 82 (>60 ml/min/1.73 sqM); Potassium 4.2 mmol/L (3.5-5.1); Sodium 138 mmol/L (137-145); Total Bilirubin 0.8 mg/dL (0.2-1.3); Total Protein 7.5 g/dL (6.3-8.2)
[2023-06-01 11:45] LABS: Appearance,Urine Clear (Clear); Bilirubin,Urine Negative (Negative); Blood,Urine Negative (Negative); Color,Urine Colorless; Glucose,Urine (UA) 4+ (Negative); Ketones,Urine Negative (Negative); Leukocyte Esterase,Urine Negative (Negative); Nitrite,Urine Negative (Negative); Protein,Urine Negative (Negative); Specific Gravity,Urine 1.025 (1.001-1.035); Urobilinogen,Urine <2.0 mg/dL (<2.0)
--- NOTE | 2023-06-01 13:17 | CT ---
EXAMINATION TYPE: CT abdomen pelvis w con DATE OF EXAM: 06/01/2023 COMPARISON: 02/21/2023, 08/14/2022 HISTORY: 72-year-old male abdominal pain, hx of colon ca TECHNIQUE: Contiguous axial scanning of the abdomen and pelvis following administration of 100 ml Iso baljit 300 IV contrast. Delayed images through the kidneys and coronal/sagittal reconstructions perform ed. CT DLP: 1802.9 mGycm Automated exposure control for dose reduction was used. FINDINGS: Heart upper limits of normal in size without pericardial effusion. Tiny less than 4 mm nodules in the lower lungs remain similar. No pleural effusion. Liver mildly enlarged at 18.8 cm. Low-attenuation of the hepatic parenchyma suggesting fatty infiltra tion. Subtle contour nodularity. Correlation should be made to exclude underlying cirrhosis. Portal v enous system is patent. No biliary ductal dilatation. Gallbladder, adrenal glands within normal limits. There is a small lower pole cortical cyst right kidney measuring 1.8 cm in larger measuring 4.1 cm mi d left kidney. Symmetric uptake and excretion of contrast from both kidneys. Small calcified granulomas in the. Mild splenomegaly at 14.3 cm relatively similar. There is a cystic lesion of the posterior pancreatic body measuring 1.6 cm versus 1.0 cm on the 2 heath or exams and can be reassessed at follow-up. No dilated small bowel, free fluid, or free air. No mesenteric or retroperitoneal lymphadenopathy. Previous partial right hemicolectomy. Ileocolonic anastomosis near the hepatic flexure of the colon. Left-sided colonic diverticulosis. Mildly redundant sigmoid colon. Mild circumferential rectal wall t hickening is nonspecific. No pericolonic inflammatory change. Post surgical change paraumbilical midline. Moderate circumferential bladder wall thickening. Prostate gland is enlarged at 6.2 cm wide. No abnor mal fluid collection in the pelvis or pelvic lymphadenopathy. Bones: Moderate degenerative change right hip. No osseous destructive process. Facet arthropathy lowe r lumbar spine. DISH in the lower thoracic spine. IMPRESSION: 1. MILD CIRCUMFERENTIAL RECTAL WALL THICKENING. CORRELATE TO EXCLUDE A MILD DISTAL COLITIS/PROCTITIS. 2. LEFT-SIDED COLONIC DIVERTICULOSIS WITHOUT EVIDENCE OF ACUTE DIVERTICULITIS. 3. MODERATE CIRCUMFERENTIAL BLADDER WALL THICKENING COULD BE CHRONIC BLADDER WALL HYPERTROPHY. CORREL ATE TO EXCLUDE CYSTITIS. PROSTATE GLAND REMAINS ENLARGED AT 6.2 CM WIDE. 4. REDEMONSTRATED HEPATOSPLENOMEGALY (LIVER 18.8 CM AND SPLEEN 14.3 CM). THERE IS UNDERLYING HEPATIC STEATOSIS AND POSSIBLE UNDERLYING CIRRHOSIS WELL. APPROPRIATE WORKUP AND MANAGEMENT RECOMMENDED IF NO ESTABLISHED DIAGNOSIS. 5. TINY LESS THAN 4 MM PULMONARY NODULES IN THE LOWER LUNGS REMAIN UNCHANGED.
[2023-06-01] MEDS ORDERED: HYDROmorphone 0.5 MG/0.5 ML SYRINGE IVP STA (14:07)
[2023-06-01] MEDS ORDERED: SODIUM CHLORIDE 0.9% 1,000 ML IV ONE (14:47)
[2023-06-01 15:53] VITALS: BP 151/94; PULSE 56; RESP 20
== END 2023-06-01 15:53 | disposition home or self-care (01) ==
LOC: EC 10:05
DX: E87.20 Acidosis, unspecified (principal); E11.9 Type 2 diabetes mellitus without complications; E78.5 Hyperlipidemia, unspecified; I11.0 Hypertensive heart disease with heart failure; I50.9 Heart failure, unspecified; I25.10 Atherosclerotic heart disease of native coronary artery without angina pectoris; I48.91 Unspecified atrial fibrillation; I25.2 Old myocardial infarction; K21.9 Gastro-esophageal reflux disease without esophagitis; F41.9 Anxiety disorder, unspecified; F31.9 Bipolar disorder, unspecified; F12.90 Cannabis use, unspecified, uncomplicated; Z79.899 Other long term (current) drug therapy; Z79.84 Long term (current) use of oral hypoglycemic drugs; Z88.5 Allergy status to narcotic agent; Z88.2 Allergy status to sulfonamides; Z88.8 Allergy status to other drugs, medicaments and biological substances
CPT/HCPCS: 36415; 80053; 82150; 83605; 83690; 85025; 81003; 74177; 99284; 96374; 96375 ×2; 96361; J2405; J1885; J1170; Q9967

== ENCOUNTER 2023-06-27 20:21 | Emergency (ER) | payer OTHER, MEDICARE ==
[2023-06-27 22:11] LABS: Basophils # (A) 0.1 k/uL (0-0.2); Basophils % (A) 1 %; Eosinophils % (A) 0 %; HCT 54.7 % (39.0-53.0); HGB 17.6 gm/dL (13.0-17.5); Hypochromasia Slight; Lymphocytes # (A) 1.3 k/uL (1.0-4.8); Lymphocytes % (A) 16 %; MCH 28.5 pg (25.0-35.0); MCHC 32.2 g/dL (31.0-37.0); MCV 88.5 fL (80.0-100.0); Mean Platelet Volume 10.1; Monocytes # (A) 0.4 k/uL (0-1.0); Monocytes % (A) 4 %; Neutrophils # (A) 6.6 k/uL (1.3-7.7); Neutrophils % (A) 78 %; Platelet Count 151 k/uL (150-450); RBC 6.19 m/uL (4.30-5.90); RDW 15.9 % (11.5-15.5); WBC 8.4 k/uL (3.8-10.6)
[2023-06-27 22:17] LABS: Appearance,Urine Clear (Clear); Bilirubin,Urine Negative (Negative); Blood,Urine Trace (Negative); Color,Urine Light Yellow; Glucose,Urine (UA) 4+ (Negative); Leukocyte Esterase,Urine Negative (Negative); Mucus,Urine Rare /hpf; Nitrite,Urine Negative (Negative); PH, Urine 5.5 (5.0-8.0); Protein,Urine 1+ (Negative); RBC,Urine 5 /hpf (0-5); Specific Gravity,Urine 1.024 (1.001-1.035); Urobilinogen,Urine <2.0 mg/dL (<2.0); WBC,Urine 1 /hpf (0-5)
[2023-06-27 22:19] LABS: Ketones,Urine 2+ (Negative)
[2023-06-27] MEDS: KETOROLAC 15 MG/ML 1 ML VIAL IVP STA (22:29)
--- NOTE | 2023-06-27 22:34 | XR ---
EXAM: XR Abdomen, 1 View CLINICAL HISTORY: ITS.REASON XR Reason: r/o obstruction TECHNIQUE: Frontal supine view of the abdomen/pelvis. COMPARISON: No relevant prior studies available. FINDINGS: Gastrointestinal tract: Unremarkable. No dilation. Bones/joints: Unremarkable. No acute fracture. IMPRESSION: Normal abdominal x-ray.
[2023-06-27 23:26] LABS: ALT 21 U/L (4-49); AST 26 U/L (17-59); African American GFR (CKD) >90 (>60 ml/min/1.73 sqM); Albumin 4.6 g/dL (3.5-5.0); Alkaline Phosphatase 80 U/L (38-126); Anion Gap 11 mmol/L; Blood Urea Nitrogen 15 mg/dL (9-20); Calcium 10.4 mg/dL (8.4-10.2); Carbon Dioxide 19 mmol/L (22-30); Chloride 110 mmol/L (98-107); Glucose 126 mg/dL (74-99); Non-African American GFR(CKD) 90 (>60 ml/min/1.73 sqM); Potassium 4.5 mmol/L (3.5-5.1); Sodium 140 mmol/L (137-145); Total Bilirubin 1.1 mg/dL (0.2-1.3); Total Protein 7.4 g/dL (6.3-8.2)
[2023-06-27] MEDS: HYDROmorphone 0.5 MG/0.5 ML SYRINGE IVP STA (23:46)
[2023-06-28] MEDS: SODIUM CHLORIDE 0.9% 1,000 ML IV STA
--- NOTE | 2023-06-28 00:27 | ED ---
Abdominal Pain HPI - General Chief Complaint: Abdominal Pain Stated Complaint: Nausea, Vomiting, Abdominal Pain Time Seen by Provider: 06/27/23 20:38 Source: patient Mode of arrival: EMS Limitations: no limitations - History of Present Illness Initial Comments: 72-year-old male presenting to the ED with a chief complaint of intermittent abdominal pain, nausea, vomiting, diarrhea, constipation. Patient has history of colon cancer status post resection. Patient notes since May he has had ongoing issues with the above. States that these are intermittent in nature. Patient reports that he follow-up with his surgeon after his prior visit here in which she was advised to follow-up and he states that his surgeon told him these are his typical symptoms secondary to significant scar tissue. Ports that [facility] Was provided antibiotics. Patient presented again secondary to these intermittent issues. Actually reports that pain is improved at this time reports is a 3 out of 10 in nature. No chest pain or shortness of breath. No other complaints. - Related Data Home Medications Medication Instructions Recorded Confirmed [place] Carbonate [[place] 450 mg PO HS 01/15/14 09/29/22 Carbonate ER] Potassium Chloride [Klor-Con 20] 20 meq PO DAILY 01/15/14 09/29/22 Pravastatin Sodium [Pravachol] 40 mg PO HS 01/15/14 09/29/22 ziprasidone HCL [Ziprasidone HCl] 80 mg PO HS 01/15/14 09/29/22 allopurinoL [Zyloprim] 100 mg PO HS 07/28/15 09/29/22 Sertraline HCl [Zoloft] 150 mg PO DAILY 11/05/15 09/29/22 [place] Carbonate [[place] 300 mg PO DAILY 01/27/16 09/29/22 Carbonate ER] Rivaroxaban [Xarelto] 20 mg PO DAILY 07/27/17 09/29/22 Temazepam [Restoril] 30 mg PO HS 07/27/17 09/29/22 Empagliflozin [Jardiance] 25 mg PO DAILY 06/10/21 09/29/22 Famotidine 20 mg PO DAILY 06/10/21 09/29/22 Insulin Glargine,Hum.rec.anlog 20 unit SQ AC-SUPPER@1800 06/10/21 09/29/22 [Lantus Solostar Pen] Pantoprazole [Protonix] 40 mg PO BID 06/10/21 09/29/22 Dicyclomine [Bentyl] 20 mg PO TID PRN 03/21/22 09/29/22 Mirtazapine 15 mg PO HS 03/21/22 09/29/22 glipiZIDE [Glucotrol] 20 mg PO AC-BID 08/14/22 09/29/22 Previous Rx's Medication Instructions Recorded Doxycycline [Vibramycin] 100 mg PO BID 5 Days #10 capsule 10/01/22 carvediloL [Coreg] 3.125 mg PO BID-W/MEALS #60 tab 10/01/22 lisinopriL [Zestril] 20 mg PO DAILY #30 tab 10/01/22 HYDROcodone/APAP 7.5-325MG [Morrow 1 tab PO Q4HR PRN 3 Days #18 tab 06/01/23 7.5-325] Allergies Allergy/AdvReac Type Severity Reaction Status Date / Time clopidogrel bisulfate Allergy Rash/Hives Verified 09/29/22 17:43 [From Plavix] Sulfa (Sulfonamide Allergy Rash/Hives Verified 06/01/23 10:12 Antibiotics) metformin AdvReac Diarrhea Verified 06/01/23 10:12 morphine AdvReac Hallucinati Verified 06/01/23 10:12 ons Review of Systems ROS Statement: Those systems with pertinent positive or pertinent negative responses have been documented in the HPI. ROS Other: All systems not noted in ROS Statement are negative. Past Medical History Past Medical History: Atrial Fibrillation, Coronary Artery Disease (CAD), Cancer, Heart Failure, Diabetes Mellitus, Eye Disorder, GERD/Reflux, GI Bleed, Hyperlipidemia, Hypertension, Myocardial Infarction (MO), Sleep Apnea/CPAP/BIP AP, Thyroid Disorder Additional Past Medical History / Comment(s): gout,skin ca, 01-15-14 double vision, recent influenza admisison, colon ca, hypercalcium Last Myocardial Infarction Date:: 2006 History of Any Multi-Drug Resistant Organisms: None Reported Past Surgical History: Appendectomy, Bowel Resection, Heart Catheterization With Stent, Orthopedic Surgery Additional Past Surgical History / Comment(s): skin ca removed, lt shoulder sx and rt knee sx, sinus sx(devaited septum) Past Anesthesia/Blood Transfusion Reactions: No Reported Reaction Date of Last Stent Placement:: 2006 Past Psychological History: Anxiety, Bipolar, Depression Smoking Status: Light tobacco smoker Past Alcohol Use History: Occasional Past Drug Use History: Marijuana - Past Family History Father Family Medical History: Asthma, Hyperlipidemia Additional Family Medical History / Comment(s): at age 61. was a heavy smoker,prostate sx a week before he not sure what took him. Mother Family Medical History: Dementia Additional Family Medical History / Comment(s): at age 75 from alzheimers General Exam Limitations: no limitations Course Vital Signs 06/27/23 06/27/23 20:24 23:51 Temperature 97.6 F Pulse Rate 80 58 L Respiratory 18 16 Rate Blood Pressure 175/97 161/79 O2 Sat by Pulse 98 98 Oximetry Medical Decision Making - Medical Decision Making Was pt. sent in by a medical professional or institution (, PA, STAFFING MANAGER, urgent care, hospital, or skilled nursing...) When possible be specific @ -No Did you speak to anyone other than the patient for history (EMS, parent, family, police, friend...)? What history was obtained from this source @ -No Did you review nursing and triage notes (agree or disagree)? Why? @ -I reviewed and agree with nursing and triage notes Were old charts reviewed (outside hosp., previous admission, EMS record, old EKG, old radiological studies, urgent care reports/EKG's, skilled nursing records)? Report findings @ -Prior visit reviewed showing history of colon cancer status post resection. Differential Diagnosis (chest pain, altered mental status, abdominal pain women, abdominal pain men, vaginal bleeding, weakness, fever, dyspnea, syncope, headache, dizziness, GI bleed, back pain, seizure, CVA, palpatations, mental health, musculoskeletal)? @ -Differential Abdominal Pain Men: Appendicitis, cholecystitis, diverticulosis, ischemic bowel, pancreatitis, hepatitis, UTI, gastroenteritis, AAA, incarcerated hernia, bowel obstruction, constipation, inflammatory bowel, hepatitis, peptic ulcer disease, splenic infarction, perforated viscus, testicular torsion, this is not meant to be an all-inclusive list EKG interpreted by me (3pts min.). @ -None X-rays interpreted by me (1pt min.). @ -KUB interpreted by me showing no evidence of obstruction or other acute finding. CT interpreted by me (1pt min.). @ -None done U/S interpreted by me (1pt. min.). @ -None done What testing was considered but not performed or refused? (CT, X-rays, U/S, labs)? Why? @ -Computed tomography scan of the abdomen and pelvis was offered the patient however reports that he would only like to have an x-ray performed at this time. What meds were considered but not given or refused? Why? @ -None Did you discuss the management of the patient with other professionals (professionals i.e. DrJeri, PA, STAFFING MANAGER, lab, RT, psych nurse, social work case manager, crude unit operator, teacher, security officer, rehabilitation case coordinator)? Give summary @ -No Was smoking cessation discussed for >3mins.? @ -No Was critical care preformed (if so, how long)? @ -No Were there social determinants of health that impacted care today? How? (Homelessness, low income, unemployed, alcoholism, drug addiction, transportation, low edu. Level, literacy, decrease access to med. care, halfway, rehab)? @ -No Was there de-escalation of care discussed even if they declined (Discuss DNR or withdrawal of care, Hospice)? DNR status @ -No What co-morbidities impacted this encounter? (DM, HTN, Smoking, COPD, CAD, Cancer, CVA, ARF, Chemo, Hep., AIDS, mental health diagnosis, sleep apnea, morbid obesity)? @ -History of colon cancer status post resection Was patient admitted / discharged? Hospital course, mention meds given and route , prescriptions, significant lab abnormalities, going to OR and other pertinent info. @ -Discharged 72-year-old male presenting to the ED of intermittent abdominal pain, nausea, v omiting, diarrhea, constipation ongoing since May in which he was advised by his surgeon at these typical symptoms to expect status post resection with a significant scar formation. Reports [facility] in which she was provided [facility]. Laboratory workup here largely unremarkable except for a lactic acidosis. This was present in prior workup as well and improved after IV fluids. Symptomatic control. KUB performed as patient also noted that he would like to make sure he doesn't have an obstruction area declined CAT scan at this time. KUB revealed no evidence of obstruction or other acute process. At this time vital signs stable and afebrile. Patient discharged home in stable condition. Discussed return precautions with patient who verbalizes agreement. Undiagnosed new problem with uncertain prognosis? @ -No Drug Therapy requiring intensive monitoring for toxicity (Heparin, Nitro, Insulin, Cardizem)? @ -No Were any procedures done? @ -No Diagnosis/symptom? @ -Abdominal pain Acute, or Chronic, or Acute on Chronic? @ -Acute on chronic Uncomplicated (without systemic symptoms) or Complicated (systemic symptoms)? @ -Uncomplicated Side effects of treatment? @ -No Exacerbation, Progression, or Severe Exacerbation? @ -No Poses a threat to life or bodily function? How? (Chest pain, USA, MO, pneumonia, PE, COPD, DKA, ARF, appy, cholecystitis, CVA, Diverticulitis, Homicidal, Suicidal, threat to staff... and all critical care pts) @ -No - Lab Data Result diagrams: 06/27/23 21:59 06/27/23 22:41 Lab Results 06/27/23 06/27/23 06/27/23 Range/Units 21:59 21:59 21:59 WBC 8.4 (3.8-10.6) k/uL RBC 6.19 H (4.30-5.90) m/uL Hgb 17.6 H (13.0-17.5) gm/dL Hct 54.7 H (39.0-53.0) % MCV 88.5 (80.0-100.0) fL MCH 28.5 (25.0-35.0) pg MCHC 32.2 (31.0-37.0) g/dL RDW 15.9 H (11.5-15.5) % Plt Count 151 (150-450) k/uL MPV 10.1 Neutrophils % 78 % Lymphocytes % 16 % Monocytes % 4 % Eosinophils % 0 % Basophils % 1 % Neutrophils # 6.6 (1.3-7.7) k/uL Lymphocytes # 1.3 (1.0-4.8) k/uL Monocytes # 0.4 (0-1.0) k/uL Eosinophils # 0.0 (0-0.7) k/uL Basophils # 0.1 (0-0.2) k/uL Hypochromasia Slight Sodium (137-145) mmol/L Potassium (3.5-5.1) mmol/L Chloride (98-107) mmol/L Carbon Dioxide (22-30) mmol/L Anion Gap mmol/L BUN (9-20) mg/dL Creatinine (0.66-1.25) mg/dL Est GFR (CKD-EPI)AfAm (>60 ml/min/1.73 sqM) Est GFR (CKD-EPI)NonAf (>60 ml/min/1.73 sqM) Glucose (74-99) mg/dL Lactic Ac Sepsis Rflx Plasma Lactic Acid Iván 3.6 H* (0.7-2.0) mmol/L Calcium (8.4-10.2) mg/dL Total Bilirubin (0.2-1.3) mg/dL AST (17-59) U/L ALT (4-49) U/L Alkaline Phosphatase (38-126) U/L Total Protein (6.3-8.2) g/dL Albumin (3.5-5.0) g/dL Urine Color Light Yellow Urine Appearance Clear (Clear) Urine pH 5.5 (5.0-8.0) Ur Specific Manning 1.024 (1.001-1.035) Urine Protein 1+ H (Negative) Urine Glucose (UA) 4+ H (Negative) Urine Ketones 2+ H (Negative) Urine Blood Trace H (Negative) Urine Nitrite Negative (Negative) Urine Bilirubin Negative (Negative) Urine Urobilinogen <2.0 (<2.0) mg/dL Ur Leukocyte Esterase Negative (Negative) Urine RBC 5 (0-5) /hpf Urine WBC 1 (0-5) /hpf Urine Mucus Rare H (None) /hpf 06/27/23 06/27/23 Range/Units 22:27 22:41 WBC (3.8-10.6) k/uL RBC (4.30-5.90) m/uL Hgb (13.0-17.5) gm/dL Hct (39.0-53.0) % MCV (80.0-100.0) fL MCH (25.0-35.0) pg MCHC (31.0-37.0) g/dL RDW (11.5-15.5) % Plt Count (150-450) k/uL MPV Neutrophils % % Lymphocytes % % Monocytes % % Eosinophils % % Basophils % % Neutrophils # (1.3-7.7) k/uL Lymphocytes # (1.0-4.8) k/uL Monocytes # (0-1.0) k/uL Eosinophils # (0-0.7) k/uL Basophils # (0-0.2) k/uL Hypochromasia Sodium 140 (137-145) mmol/L Potassium 4.5 (3.5-5.1) mmol/L Chloride 110 H (98-107) mmol/L Carbon Dioxide 19 L (22-30) mmol/L Anion Gap 11 mmol/L BUN 15 (9-20) mg/dL Creatinine 0.82 (0.66-1.25) mg/dL Est GFR (CKD-EPI)AfAm >90 (>60 ml/min/1.73 sqM) Est GFR (CKD-EPI)NonAf 90 (>60 ml/min/1.73 sqM) Glucose 126 H (74-99) mg/dL Lactic Ac Sepsis Rflx Y Plasma Lactic Acid Iván (0.7-2.0) mmol/L Calcium 10.4 H (8.4-10.2) mg/dL Total Bilirubin 1.1 (0.2-1.3) mg/dL AST 26 (17-59) U/L ALT 21 (4-49) U/L Alkaline Phosphatase 80 (38-126) U/L Total Protein 7.4 (6.3-8.2) g/dL Albumin 4.6 (3.5-5.0) g/dL Urine Color Urine Appearance (Clear) Urine pH (5.0-8.0) Ur Specific Manning (1.001-1.035) Urine Protein (Negative) Urine Glucose (UA) (Negative) Urine Ketones (Negative) Urine Blood (Negative) Urine Nitrite (Negative) Urine Bilirubin (Negative) Urine Urobilinogen (<2.0) mg/dL Ur Leukocyte Esterase (Negative) Urine RBC (0-5) /hpf Urine WBC (0-5) /hpf Urine Mucus (None) /hpf Disposition Clinical Impression: Abdominal pain Disposition: HOME SELF-CARE Condition: Good Additional Instructions: Please return to the Emergency Department if symptoms worsen or any other concerns. Follow up with your surgeon. Is patient prescribed a controlled substance at d/c from ED?: No Referrals: [facility],Clinic [Primary Care Provider] - 1-2 days Time of Disposition: 00:31
[2023-06-28 02:31] VITALS: BP 155/95; PULSE 63; RESP 18; TEMP 97.3
== END 2023-06-28 02:31 | disposition home or self-care (01) ==
LOC: EC 20:21
DX: R10.9 Unspecified abdominal pain (principal); E11.9 Type 2 diabetes mellitus without complications; E78.5 Hyperlipidemia, unspecified; I11.0 Hypertensive heart disease with heart failure; I45.10 Unspecified right bundle-branch block; I50.9 Heart failure, unspecified; I25.10 Atherosclerotic heart disease of native coronary artery without angina pectoris; I25.2 Old myocardial infarction; I48.91 Unspecified atrial fibrillation; K21.9 Gastro-esophageal reflux disease without esophagitis; F41.9 Anxiety disorder, unspecified; F31.9 Bipolar disorder, unspecified; Z79.84 Long term (current) use of oral hypoglycemic drugs; Z79.01 Long term (current) use of anticoagulants; Z79.899 Other long term (current) drug therapy; Z88.2 Allergy status to sulfonamides; Z88.8 Allergy status to other drugs, medicaments and biological substances
CPT/HCPCS: 36415 ×2; 80053; 83605 ×2; 85025; 81001; 74018; 99285; 96374; 96375; 96361; J1885; J1170

== ENCOUNTER → 2023-07-13 | Outpatient (CLI) | payer OTHER ==
--- NOTE | 2023-07-13 11:12 | NM ---
Nuclear medicine hepatobiliary scan. HISTORY: Pain. DOSAGE: The patient received 8 0z Ensure plus and 4.90 mCi of Technetium 99m Choletec. FINDINGS: There is normal hepatic extraction. The gallbladder is seen by 15 minutes. Ejection frac tion is 96%. IMPRESSION: 1. No evidence of cholecystitis. 2 Ejection fraction of 96% can be associated with hyperdynamic gallbladder
== END | disposition home or self-care (01) ==
LOC: RADNMMAIN 06:53
PROVIDERS: ATTEND Surgery
DX: K82.8 Other specified diseases of gallbladder (principal)
CPT/HCPCS: 78227; A9537; J2805

== ENCOUNTER 2023-07-24 17:09 | Observation (INO) | payer OTHER, MEDICARE ==
--- NOTE | 2023-07-24 17:38 | ED ---
Abdominal Pain HPI - General Chief Complaint: Abdominal Pain Stated Complaint: Gallbladder pain Time Seen by Provider: 07/24/23 17:23 Source: patient, family, RN notes reviewed Mode of arrival: ambulatory Limitations: no limitations - History of Present Illness Initial Comments: This is a 72-year-old male who presents to the emergency department for abdo rl pain. States that he has ongoing problems related to his gallbladder, and was scheduled to have this removed tomorrow with Dr. Wilson. However, this was postponed due to patient's multiple cardiac problems and an abnormal EKG. States that the pain has gotten severe to the point of being unable to manage it outpatient, and he was advised by Dr. Wilson to come to the emergency department. He is on Xarelto, and discontinued this 2 days ago in anticipation of upcoming surgery. His vascular technician is also planning on putting in a pacemaker at some point due to bradycardia. However, this is not yet scheduled. MD Complaint: abdominal pain - Related Data Home Medications Medication Instructions Recorded Confirmed Potassium Chloride [Klor-Con 20] 20 meq PO DAILY 01/15/14 07/24/23 Pravastatin Sodium [Pravachol] 40 mg PO HS 01/15/14 07/24/23 allopurinoL [Zyloprim] 100 mg PO DAILY 07/28/15 07/24/23 Sertraline HCl [Zoloft] 200 mg PO DAILY 11/05/15 07/24/23 Rivaroxaban [Xarelto] 20 mg PO DIRECTED 07/27/17 07/24/23 Empagliflozin [Jardiance] 25 mg PO DAILY 06/10/21 07/24/23 Famotidine 20 mg PO DAILY 06/10/21 07/24/23 Insulin Glargine,Hum.rec.anlog 1 - 20 unit SQ DAILY PRN 06/10/21 07/24/23 [Lantus Solostar Pen] Pantoprazole [Protonix] 40 mg PO BID 06/10/21 07/24/23 glipiZIDE [Glucotrol] 20 mg PO AC-BID 08/14/22 07/24/23 Mirtazapine [Remeron] 22.5 mg PO HS 07/23/23 07/24/23 Temazepam 7.5 mg PO HS 07/24/23 07/24/23 Temazepam [Restoril] 15 mg PO HS 07/24/23 07/24/23 Allergies Allergy/AdvReac Type Severity Reaction Status Date / Time clopidogrel bisulfate Allergy Rash/Hives Verified 07/24/23 22:41 [From Plavix] Sulfa (Sulfonamide Allergy Rash/Hives Verified 07/24/23 22:41 Antibiotics) gabapentin AdvReac Aggression, Verified 07/24/23 22:41 anxiety, mood swings metformin AdvReac Diarrhea Verified 07/24/23 22:41 morphine AdvReac Hallucinati Verified 07/24/23 22:41 ons pregabalin [From Lyrica] AdvReac Aggression, Verified 07/24/23 22:41 anxiety, mood swings Review of Systems ROS Statement: Those systems with pertinent positive or pertinent negative responses have been documented in the HPI. ROS Other: All systems not noted in ROS Statement are negative. Past Medical History Past Medical History: Atrial Fibrillation, Coronary Artery Disease (CAD), Cancer, Heart Failure, Diabetes Mellitus, GERD/Reflux, Hyperlipidemia, Hypertension, Myocardial Infarction ([place]), Sleep Apnea/CPAP/BIPAP, Thyroid Disorder Additional Past Medical History / Comment(s): gout, skin ca, colon cancer with resection and chemo (2017)., c-pap machine., ulcer on side of right great toe- receives wound tx ., BPH., gall bladder pain. Last Myocardial Infarction Date:: 2006 History of Any Multi-Drug Resistant Organisms: None Reported Past Surgical History: Appendectomy, Bowel Resection, Heart Catheterization With Stent, Orthopedic Surgery Additional Past Surgical History / Comment(s): skin ca removed, lt shoulder surgery ,rt knee surgery, deviated septum surgery Past Anesthesia/Blood Transfusion Reactions: No Reported Reaction Date of Last Stent Placement:: 2006 Past Psychological History: Anxiety, Bipolar, Depression Smoking Status: Former smoker Past Alcohol Use History: Rare Past Drug Use History: None Reported - Past Family History Father Family Medical History: Asthma, Hyperlipidemia Additional Family Medical History / Comment(s): at age 61. was a heavy smoker,prostate sx a week before he not sure what took him. Mother Family Medical History: Dementia Additional Family Medical History / Comment(s): at age 75 from alzheimers General Exam Limitations: no limitations General appearance: alert, in no apparent distress Head exam: Present: atraumatic, normocephalic, normal inspection Respiratory exam: Present: normal lung sounds bilaterally. Absent: respiratory distress, wheezes, rales, rhonchi, stridor Cardiovascular Exam: Present: regular rate, normal rhythm, normal heart sounds. Absent: systolic murmur, diastolic murmur, rubs, gallop, clicks GI/Abdominal exam: Present: soft, tenderness (Right sided), normal bowel sounds. Absent: distended Neurological exam: Present: alert, oriented X3, CN II-XII intact Psychiatric exam: Present: normal affect, normal mood Skin exam: Present: warm, dry, intact, normal color. Absent: rash Course Vital Signs 07/24/23 07/24/23 17:18 18:18 Temperature 97.8 F Pulse Rate 71 79 Respiratory 18 18 Rate Blood Pressure 184/73 168/82 O2 Sat by Pulse 98 98 Oximetry Medical Decision Making - Medical Decision Making This is a 72 year old male who presents to the emergency department for abdominal pain. Was pt. sent in by a medical professional or institution? @ -Dr. Wilson Did you speak to anyone other than the patient for history? @ -No Did you review nursing and triage notes? @ -Yes, and I agree, it is accurate with regards to the patient's symptoms. Were old charts reviewed? @ -HIDA scan from 07/13/23 demonstrating an ejection fraction of 96% that can be associated with hyperdynamic gallbladder. Differential Diagnosis? @ -Differential Abdominal Pain Men: Appendicitis, cholecystitis, diverticulosis, ischemic bowel, pancreatitis, hepatitis, UTI, gastroenteritis, AAA, incarcerated hernia, bowel obstruction, constipation, inflammatory bowel, hepatitis, peptic ulcer disease, splenic infarction, perforated viscus, testicular torsion, this is not meant to be an all-inclusive list EKG interpreted by me (3pts min.)? @ -EKG interpreted by me demonstrating the following: Atrial fibrillation. Ventricular rate 66 bpm, QRS duration 122 ms, QTc 441 ms. X-rays interpreted by me (1pt min.)? @ -Chest x-ray obtained, my interpretation identifies no localized co nsolidations or infiltrates. CT interpreted by me (1pt min.)? @ -Not obtained U/S interpreted by me (1pt. min.)? @ -Not obtained What testing was considered but not performed? (CT, X-rays, U/S, labs)? Why? @ -None What meds were considered but not given? Why? @ -None Did you discuss the management of the patient with other professionals? @ -Yes, Dr. Wilson, who accepts the patient for admission and requests consults for cardiology and medicine for medical management and surgical clearance. Did you reconcile home meds? @ -No Was smoking cessation discussed for >3mins.? @ -No Was critical care preformed (if so, how long)? @ -No Were there social determinants of health that impacted care today? How? (Homelessness, low income, unemployed, alcoholism, drug addiction, tra nsportation, low edu. Level, literacy, decrease access to med. care, long-term, rehab)? @ -No Was there de-escalation of care discussed even if they declined? (Discuss DNR or withdrawal of care, Hospice)? @ -No What co-morbidities impacted this encounter? (DM, HTN, Smoking, COPD, CAD, Cancer, CVA, Hep., AIDS, mental health diagnosis, sleep apnea, morbid obesity)? @ -A-fib, CAD, DM, HLD, HTN Was patient admitted / discharged? @ -Admitted. Lab work demonstrates an elevated lactic acid of 2.1, and was otherwise unremarkable. Chest x-ray demonstrates cardiomegaly and mild pulmonary vascular congestion. Patient admitted to general surgery with hope for surgical intervention if patient has preoperative medical clearance. Consults placed for medicine and cardiology for medical management and surgical clearance. Undiagnosed new problem with uncertain prognosis? @ -None Drug Therapy requiring intensive monitoring for toxicity (Heparin, Nitro, Insulin, Cardizem)? @ -None Were any procedures done? @ -None Diagnosis/symptom? @ -Chronic cholecystitis Acute, or Chronic, or Acute on Chronic? @ -Chronic Uncomplicated (without systemic symptoms) or Complicated (systemic symptoms)? @ -Complicated Side effects of treatment? interested in starting old @ -None Exacerbation, Progression, or Severe Exacerbation] @ -Progression of pain Poses a threat to life or bodily function? @ -Yes Diagnosis/symptom? @ -Intractable abdominal pain Acute, or Chronic, or Acute on Chronic? @ -Acute Uncomplicated (without systemic symptoms) or Complicated (systemic symptoms)? @ -Complicated Side effects of treatment? @ -None Exacerbation, Progression, or Severe Exacerbation] @ -Progression Poses a threat to life or bodily function? @ -Yes This case was discussed in detail with the attending ED physician, Dr. Kinsey. Presentation, findings, and treatment plan discussed in detail as well. - Lab Data Result diagrams: 07/24/23 18:00 07/24/23 18:00 Lab Results 07/24/23 07/24/23 07/24/23 Range/Units 18:00 18:00 18:00 WBC 7.4 (3.8-10.6) k/uL RBC 5.94 H (4.30-5.90) m/uL Hgb 16.9 (13.0-17.5) gm/dL Hct 53.2 H (39.0-53.0) % MCV 89.5 (80.0-100.0) fL MCH 28.4 (25.0-35.0) pg MCHC 31.7 (31.0-37.0) g/dL RDW 16.3 H (11.5-15.5) % Plt Count 141 L (150-450) k/uL MPV 8.2 Neutrophils % 66 % Lymphocytes % 26 % Monocytes % 5 % Eosinophils % 2 % Basophils % 1 % Neutrophils # 4.9 (1.3-7.7) k/uL Lymphocytes # 1.9 (1.0-4.8) k/uL Monocytes # 0.4 (0-1.0) k/uL Eosinophils # 0.1 (0-0.7) k/uL Basophils # 0.0 (0-0.2) k/uL Hypochromasia Slight Anisocytosis Slight Sodium 141 (137-145) mmol/L Potassium 4.4 (3.5-5.1) mmol/L Chloride 108 H (98-107) mmol/L Carbon Dioxide 23 (22-30) mmol/L Anion Gap 10 mmol/L BUN 16 (9-20) mg/dL Creatinine 0.66 (0.66-1.25) mg/dL Est GFR (CKD-EPI)AfAm >90 (>60 ml/min/1.73 sqM) Est GFR (CKD-EPI)NonAf >90 (>60 ml/min/1.73 sqM) Glucose 127 H (74-99) mg/dL Lactic Ac Sepsis Rflx Plasma Lactic Acid Iván 2.1 H* (0.7-2.0) mmol/L Calcium 10.6 H (8.4-10.2) mg/dL Total Bilirubin 0.6 (0.2-1.3) mg/dL AST 32 (17-59) U/L ALT 29 (4-49) U/L Alkaline Phosphatase 105 (38-126) U/L Troponin I (0.000-0.034) ng/mL NT-Pro-B Natriuret Pep pg/mL Total Protein 7.7 (6.3-8.2) g/dL Albumin 4.7 (3.5-5.0) g/dL Amylase 78 (30-110) U/L Lipase 96 (23-300) U/L 07/24/23 07/24/23 07/24/23 Range/Units 18:00 18:00 18:42 WBC (3.8-10.6) k/uL RBC (4.30-5.90) m/uL Hgb (13.0-17.5) gm/dL Hct (39.0-53.0) % MCV (80.0-100.0) fL MCH (25.0-35.0) pg MCHC (31.0-37.0) g/dL RDW (11.5-15.5) % Plt Count (150-450) k/uL MPV Neutrophils % % Lymphocytes % % Monocytes % % Eosinophils % % Basophils % % Neutrophils # (1.3-7.7) k/uL Lymphocytes # (1.0-4.8) k/uL Monocytes # (0-1.0) k/uL Eosinophils # (0-0.7) k/uL Basophils # (0-0.2) k/uL Hypochromasia Anisocytosis Sodium (137-145) mmol/L Potassium (3.5-5.1) mmol/L Chloride (98-107) mmol/L Carbon Dioxide (22-30) mmol/L Anion Gap mmol/L BUN (9-20) mg/dL Creatinine (0.66-1.25) mg/dL Est GFR (CKD-EPI)AfAm (>60 ml/min/1.73 sqM) Est GFR (CKD-EPI)NonAf (>60 ml/min/1.73 sqM) Glucose (74-99) mg/dL Lactic Ac Sepsis Rflx Y Plasma Lactic Acid Iván (0.7-2.0) mmol/L Calcium (8.4-10.2) mg/dL Total Bilirubin (0.2-1.3) mg/dL AST (17-59) U/L ALT (4-49) U/L Alkaline Phosphatase (38-126) U/L Troponin I <0.012 (0.000-0.034) ng/mL NT-Pro-B Natriuret Pep 224 pg/mL Total Protein (6.3-8.2) g/dL Albumin (3.5-5.0) g/dL Amylase (30-110) U/L Lipase (23-300) U/L - Radiology Data Radiology results: report reviewed, image reviewed Disposition Clinical Impression: Chronic cholecystitis, Intractable abdominal pain Disposition: ADMITTED IP TO THIS [facility] Time of Disposition: 18:54
[2023-07-24] MEDS: SODIUM CHLORIDE 0.9% 1,000 ML IV STA (18:09)
[2023-07-24] MEDS: ONDANSETRON 4 MG/2 ML VIAL IVP STA (18:09)
[2023-07-24] MEDS: HYDROmorphone 0.5 MG/0.5 ML SYRINGE IVP STA (18:09)
[2023-07-24 18:32] LABS: Anisocytosis Slight; Basophils % (A) 1 %; Eosinophils # (A) 0.1 k/uL (0-0.7); Eosinophils % (A) 2 %; HCT 53.2 % (39.0-53.0); HGB 16.9 gm/dL (13.0-17.5); Hypochromasia Slight; Lymphocytes # (A) 1.9 k/uL (1.0-4.8); Lymphocytes % (A) 26 %; MCH 28.4 pg (25.0-35.0); MCHC 31.7 g/dL (31.0-37.0); MCV 89.5 fL (80.0-100.0); Mean Platelet Volume 8.2; Monocytes # (A) 0.4 k/uL (0-1.0); Monocytes % (A) 5 %; Neutrophils # (A) 4.9 k/uL (1.3-7.7); Neutrophils % (A) 66 %; Platelet Count 141 k/uL (150-450); RBC 5.94 m/uL (4.30-5.90); RDW 16.3 % (11.5-15.5); WBC 7.4 k/uL (3.8-10.6)
[2023-07-24 18:44] LABS: ALT 29 U/L (4-49); AST 32 U/L (17-59); African American GFR (CKD) >90 (>60 ml/min/1.73 sqM); Albumin 4.7 g/dL (3.5-5.0); Alkaline Phosphatase 105 U/L (38-126); Amylase 78 U/L (30-110); Anion Gap 10 mmol/L; Blood Urea Nitrogen 16 mg/dL (9-20); Calcium 10.6 mg/dL (8.4-10.2); Carbon Dioxide 23 mmol/L (22-30); Chloride 108 mmol/L (98-107); Glucose 127 mg/dL (74-99); Lipase 96 U/L (23-300); Non-African American GFR(CKD) >90 (>60 ml/min/1.73 sqM); Potassium 4.4 mmol/L (3.5-5.1); Sodium 141 mmol/L (137-145); Total Bilirubin 0.6 mg/dL (0.2-1.3); Total Protein 7.7 g/dL (6.3-8.2)
[2023-07-24] MEDS ORDERED: ONDANSETRON 4 MG/2 ML VIAL IVP PRN (18:52)
[2023-07-24] MEDS ORDERED: NALOXONE 0.4 MG/ML 1 ML VIAL IV PRN (18:52)
--- NOTE | 2023-07-24 19:07 | XR ---
EXAMINATION TYPE: XR chest 2V DATE OF EXAM: 07/24/2023 6:39 PM CLINICAL INDICATION:Male, 72 years old with history of Preop clearance; [facility] COMPARISON: 02/21/2023 TECHNIQUE: XR chest 2V Frontal and lateral views of the chest. FINDINGS: Lungs/Pleura: There is no evidence of pleural effusion, focal consolidation, or pneumothorax. Pulmonary vascularity: Pulmonary vascular congestion. Heart/mediastinum: Cardiomediastinal silhouette is enlarged and stable. Musculoskeletal: No acute osseous pathology. Other findings: None IMPRESSION: Cardiomegaly and mild pulmonary vascular congestion. Correlate with BNP for congestive heart failure.
[2023-07-24] MEDS: HYDROmorphone 0.5 MG/0.5 ML SYRINGE IVP PRN (22:51)
[2023-07-25] MEDS ORDERED: DEXTROSE 50% SYRINGE 50 ML IVP PRN ×2 (02:02)
[2023-07-25] MEDS ORDERED: cloNIDine HCL 0.2 MG TAB PO PRN (02:02)
[2023-07-25] MEDS: ACETAMINOPHEN TAB 325 MG TAB PO PRN (02:04)
[2023-07-25] MEDS: SODIUM CHLORIDE 0.9% 1,000 ML IV SCH (02:17)
[2023-07-25] MEDS: TEMAZEPAM 15 MG CAP PO PRN (02:17)
--- NOTE | 2023-07-25 02:58 | P.CONS ---
History of Present Illness - Reason for Consult Consult date: 07/25/23 medical management - Chief Complaint abd pain - History of Present Illness 72-year-old male with A-fib on Xarelto, diabetes mellitus, CAD Patient was diagnosed with chronic cholecystitis with surgery planned soon awaiting cardiology clearance. Patient started experiencing extreme pain today he described it as diffuse abdominal pain that was not resolved with pain medications at home he notified his surgeon who recommended he come to the hospital for pain control he denies any associated nausea vomiting GI bleeding diarrhea or constipation denies any fevers chills he denies any chest pain or trouble breathing. Patient has been holding his Xarelto for the past 2 days in preparation for p otential surgery. At time of my evaluation patient seems to be very comfortable denies any symptoms of pain nausea vomiting. He was requesting sleeping pill to help him relax and sleep Patient denies any tobacco smoking illicit drugs or alcohol review of systems Pertinent positives as noted in HPI. All other systems were reviewed and are negative on exam Constitutional: No acute distress, conversant, pleasant Eyes: Anicteric sclerae, moist conjunctiva, Pupils equal round reactive to light ENMT: NC/AT Oropharynx clear, no erythema, or exudates Neck: Supple, no masses, or JVD No carotid bruits No thyromegaly Lungs: Clear to auscultation Clear to percussion Normal respiratory effort, no accessory muscle use Cardiovascular: Heart regular in rate and rhythm, No murmurs, gallops, or rubs No peripheral edema Abdominal: Soft Nontender, no guarding, rebound or rigidity Abdomen moving with respiration Normoactive bowel sounds Extremities: No digital cyanosis No clubbing Pedal pulses intact and symmetrical Radial pulses intact and symmetrical No calf tenderness Psychiatric: Alert and oriented to person, place and time Appropriate affect fair judgement Neuro Muscles Strength 5/5 in all 4 extremities Sensation to light touch grossly present throughout Cranial nerves II-XII grossly intact Past Medical History Past Medical History: Atrial Fibrillation, Coronary Artery Disease (CAD), Cancer, Heart Failure, Diabetes Mellitus, GERD/Reflux, Hyperlipidemia, Hypertension, Myocardial Infarction ([place]), Sleep Apnea/CPAP/BIPAP, Thyroid Disorder Additional Past Medical History / Comment(s): gout, skin ca, colon cancer with resection and chemo (2017)., c-pap machine., ulcer on side of right great toe- receives wound tx ., BPH., gall bladder pain. 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 Last Myocardial Infarction Date:: 2006 History of Any Multi-Drug Resistant Organisms: None Reported Past Surgical History: Appendectomy, Bowel Resection, Heart Catheterization With Stent, Orthopedic Surgery Additional Past Surgical History / Comment(s): skin ca removed, lt shoulder surgery ,rt knee surgery, deviated septum surgery Past Anesthesia/Blood Transfusion Reactions: No Reported Reaction Date of Last Stent Placement:: 2006 Past Psychological History: Anxiety, Bipolar, Depression Smoking Status: Former smoker Past Alcohol Use History: Rare Additional Past Alcohol Use History / Comment(s): started smoking age 20- quit same year maybe total 3 packs in that time Past Drug Use History: None Reported Additional Drug Use History / Comment(s): past use of cbd gummies. - Past Family History Father Family Medical History: Asthma, Hyperlipidemia Additional Family Medical History / Comment(s): at age 61. was a heavy smoker,prostate sx a week before he not sure what took him. Mother Family Medical History: Dementia Additional Family Medical History / Comment(s): at age 75 from alzheimers Medications and Allergies Home Medications Medication Instructions Recorded Confirmed Type Potassium Chloride [Klor-Con 20] 20 meq PO DAILY 01/15/14 07/24/23 History Pravastatin Sodium [Pravachol] 40 mg PO HS 01/15/14 07/24/23 History allopurinoL [Zyloprim] 100 mg PO DAILY 07/28/15 07/24/23 History Sertraline HCl [Zoloft] 200 mg PO DAILY 11/05/15 07/24/23 History Rivaroxaban [Xarelto] 20 mg PO DIRECTED 07/27/17 07/24/23 History Empagliflozin [Jardiance] 25 mg PO DAILY 06/10/21 07/24/23 History Famotidine 20 mg PO DAILY 06/10/21 07/24/23 History Insulin Glargine,Hum.rec.anlog 1 - 20 unit SQ DAILY PRN 06/10/21 07/24/23 History [Lantus Solostar Pen] Pantoprazole [Protonix] 40 mg PO BID 06/10/21 07/24/23 History glipiZIDE [Glucotrol] 20 mg PO AC-BID 08/14/22 07/24/23 History Mirtazapine [Remeron] 22.5 mg PO HS 07/23/23 07/24/23 History Temazepam 7.5 mg PO HS 07/24/23 07/24/23 History Temazepam [Restoril] 15 mg PO HS 07/24/23 07/24/23 History Allergies Allergy/AdvReac Type Severity Reaction Status Date / Time clopidogrel bisulfate Allergy Rash/Hives Verified 07/24/23 22:41 [From Plavix] Sulfa (Sulfonamide Allergy Rash/Hives Verified 07/24/23 22:41 Antibiotics) gabapentin AdvReac Aggression, Verified 07/24/23 22:41 anxiety, mood swings metformin AdvReac Diarrhea Verified 07/24/23 22:41 morphine AdvReac Hallucinati Verified 07/24/23 22:41 ons pregabalin [From Lyrica] AdvReac Aggression, Verified 07/24/23 22:41 anxiety, mood swings Physical Exam Vitals: Vital Signs Temp Pulse Pulse Resp BP BP BP 07/25/23 02:15 146/89 07/25/23 00:12 97.9 F 73 16 198/98 07/24/23 20:44 97.6 F 71 16 184/89 07/24/23 18:18 79 18 168/82 07/24/23 17:18 97.8 F 71 18 184/73 Pulse Ox 07/25/23 02:15 07/25/23 00:12 95 07/24/23 20:44 99 07/24/23 18:18 98 07/24/23 17:18 98 Intake and Output 07/24/23 07/24/23 07/25/23 14:59 22:59 06:59 Other: # Voids 2 Weight 107.955 kg Results CBC & Chem 7: 07/24/23 18:00 07/24/23 18:00 Labs: Abnormal Lab Results - Last 24 Hours (Table) 07/24/23 07/24/23 07/24/23 Range/Units 18:00 18:00 18:00 RBC 5.94 H (4.30-5.90) m/uL Hct 53.2 H (39.0-53.0) % RDW 16.3 H (11.5-15.5) % Plt Count 141 L (150-450) k/uL Chloride 108 H (98-107) mmol/L Glucose 127 H (74-99) mg/dL Plasma Lactic Acid Iván 2.1 H* (0.7-2.0) mmol/L Calcium 10.6 H (8.4-10.2) mg/dL Assessment and Plan Assessment: 72-year-old male with chronic cholecystitis with plans for cholecystectomy with general surgery awaiting cardiology clearance preop. Medicine consulted for management of diabetes mellitus and hypertension Chronic cholecystitis Management per primary surgical team Pain controlled with Dilaudid 0.5 mg every 3 hours as needed IV push Zofran 4 mg IV push every 8 hours as needed for nausea vomiting IV fluid hydration with normal saline Liver enzymes unremarkable AST 32 ALT 29 alk phos 105 bilirubin 0.6 Lactic acid unremarkable 2.1 White count 7.4 unremarkable Lipase 96 unremarkable Diabetes mellitus Hold oral hypoglycemic agents Insulin sliding scale Hypertension Blood pressure uncontrolled Clonidine as needed for systolic blood pressure above 180 Renal function unremarkable BUN 16 creatinine 0.6 sodium 141 potassium 4.4 Verify home medications Insomnia Temazepam as needed 15 mg p.o. nightly Full code DVT prophylaxis mechanical in anticipation for surgery
[2023-07-25 05:51] LABS: Glucose,Whole Blood 128 mg/dL (70-110)
[2023-07-25] MEDS: PANTOPRAZOLE 40 MG TABLET PO SCH (06:03)
[2023-07-25] MEDS: INSULIN ASPART (NovoLOG) 100 UNIT/ML VIAL SQ SCH (06:17)
--- NOTE | 2023-07-25 09:07 | P.CRDCN ---
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 He has a past medical history of coronary artery disease, permanent atrial fibrillation, hyperlipidemia diabetes mellitus type 2, gastroesophageal reflux disease, chronic cholecystitis. We have been asked to evaluate the patient for surgical clearance with history of coronary artery disease and atrial fibrillation. Patient is tentatively scheduled for cholecystectomy. Patient does have history of having cardiac stent done in 2006 and underwent a stress test approximately 2 months ago. He states his abdominal pain is better at this time. He denies having any chest pain nor shortness of breath. EKG atrial fibrillation with ventricular rate of 66 bpm. Echocardiogram performed 07/25/2023 reveals normal LV function, mildly dilated right ventricle. Chest x-ray: Cardiomegaly with mild pulmonary vascular congestion. WBC 7.4, hemoglobin 16.9, platelet count 141. BUN 16, creatinine 0.66, potassium 4.4. Calcium 10.6. Lactic acid initially 2.1 with repeat 1.5. Liver function test are normal. Troponin negative x 1. proBNP 224. Lipase 96. Home cardiac medications: Pravastatin 40 mg at bedtime, Xarelto 20 mg daily but has been on hold for planned surgery. Lexiscan stress test performed 11/26/2018 was negative for reversible ischemia. Echocardiogram performed 10/28/2018 revealed EF of 55 to 60%, moderate concentric left ventricular hypertrophy, mild mitral regurgitation, mild tricuspid regurgitation, trace pulmonic regurgitation. Review Of Systems: At the time of my exam: CONSTITUTIONAL: Denies fever or chills. HEENT: Denies blurred vision, vision changes, or eye pain. Denies hemoptysis CARDIOVASCULAR: Denies chest pain. Denies orthopnea. Denies PND. Denies palpitations RESPIRATORY: Denies shortness of breath. GASTROINTESTINAL: Reports abdominal pain. Denies nausea or vomiting. HEMATOLOGIC: Denies bleeding disorders. GENITOURINARY: Denies any blood in urine. SKIN: Denies pruitis. Denies rash. Physical examination: Gen: This is a 72-year-old male in no acute distress VS: reviewed HEENT: Head is atraumatic, normocephalic. Pupils equal, round. Sclerae is anicteric. NECK: Supple. No JVD. LUNGS: Clear to auscultation. No wheezes or rhonchi. No intercostal retractions. HEART: Regular rate and rhythm. ABDOMEN: Soft EXTREMITIES: No pedal edema. No calf tenderness. NEUROLOGICAL: Patient is awake, alert and oriented x3. Assessment: Chronic cholecystitis Lactic acidosis Uncontrolled hypertension History of coronary artery disease Permanent atrial fibrillation Diabetes mellitus type 2 Hypertension Hyperlipidemia Plan: Resume patient's home cardiac medications Leonie remains on hold for planned surgery Start patient on amlodipine 10 mg daily and lisinopril 10 mg daily for blood p ressure control Patient is cleared by cardiology for surgery. Thank you kindly for this consultation. Nurse practitioner note has been reviewed, I agree with documented findings and plan of care. Patient was seen and examined. Past Medical History Past Medical History: Atrial Fibrillation, Coronary Artery Disease (CAD), Cancer, Heart Failure, Diabetes Mellitus, GERD/Reflux, Hyperlipidemia, Hypertension, Myocardial Infarction ([place]), Sleep Apnea/CPAP/BIPAP, Thyroid Disorder Additional Past Medical History / Comment(s): gout, skin ca, colon cancer with resection and chemo (2017)., c-pap machine., ulcer on side of right great toe- receives wound tx ., BPH., gall bladder pain. Last Myocardial Infarction Date:: 2006 History of Any Multi-Drug Resistant Organisms: None Reported Past Surgical History: Appendectomy, Bowel Resection, Heart Catheterization With Stent, Orthopedic Surgery Additional Past Surgical History / Comment(s): skin ca removed, lt shoulder surgery ,rt knee surgery, deviated septum surgery Past Anesthesia/Blood Transfusion Reactions: No Reported Reaction Date of Last Stent Placement:: 2006 Past Psychological History: Anxiety, Bipolar, Depression Smoking Status: Former smoker Past Alcohol Use History: Rare Past Drug Use History: None Reported - Past Family History Father Family Medical History: Asthma, Hyperlipidemia Additional Family Medical History / Comment(s): at age 61. was a heavy smoker,prostate sx a week before he not sure what took him. Mother Family Medical History: Dementia Additional Family Medical History / Comment(s): at age 75 from alzheimers Medications and Allergies Home Medications Medication Instructions Recorded Confirmed Type Potassium Chloride [Klor-Con 20] 20 meq PO DAILY 01/15/14 07/24/23 History Pravastatin Sodium [Pravachol] 40 mg PO HS 01/15/14 07/24/23 History allopurinoL [Zyloprim] 100 mg PO DAILY 07/28/15 07/24/23 History Sertraline HCl [Zoloft] 200 mg PO DAILY 11/05/15 07/24/23 History Rivaroxaban [Xarelto] 20 mg PO DIRECTED 07/27/17 07/24/23 History Empagliflozin [Jardiance] 25 mg PO DAILY 06/10/21 07/24/23 History Famotidine 20 mg PO DAILY 06/10/21 07/24/23 History Insulin Glargine,Hum.rec.anlog 1 - 20 unit SQ DAILY PRN 06/10/21 07/24/23 History [Lantus Solostar Pen] Pantoprazole [Protonix] 40 mg PO BID 06/10/21 07/24/23 History glipiZIDE [Glucotrol] 20 mg PO AC-BID 08/14/22 07/24/23 History Mirtazapine [Remeron] 22.5 mg PO HS 07/23/23 07/24/23 History Temazepam 7.5 mg PO HS 07/24/23 07/24/23 History Temazepam [Restoril] 15 mg PO HS 07/24/23 07/24/23 History Allergies Allergy/AdvReac Type Severity Reaction Status Date / Time clopidogrel bisulfate Allergy Rash/Hives Verified 07/24/23 22:41 [From Plavix] Sulfa (Sulfonamide Allergy Rash/Hives Verified 07/24/23 22:41 Antibiotics) gabapentin AdvReac Aggression, Verified 07/24/23 22:41 anxiety, mood swings metformin AdvReac Diarrhea Verified 07/24/23 22:41 morphine AdvReac Hallucinati Verified 07/24/23 22:41 ons pregabalin [From Lyrica] AdvReac Aggression, Verified 07/24/23 22:41 anxiety, mood swings Physical Exam Vitals: Vital Signs Temp Pulse Pulse Resp BP BP BP 07/25/23 02:15 146/89 07/25/23 00:12 97.9 F 73 16 198/98 07/24/23 20:44 97.6 F 71 16 184/89 07/24/23 18:18 79 18 168/82 07/24/23 17:18 97.8 F 71 18 184/73 Pulse Ox 07/25/23 02:15 07/25/23 00:12 95 07/24/23 20:44 99 07/24/23 18:18 98 07/24/23 17:18 98 Intake and Output 07/24/23 07/25/23 07/25/23 22:59 06:59 14:59 Other: # Voids 2 1 Weight 107.955 kg Results 07/24/23 18:00 07/25/23 07:06 Cardiac Enzymes 07/24/23 07/24/23 Range/Units 18:00 18:00 AST 32 (17-59) U/L Troponin I <0.012 (0.000-0.034) ng/mL CBC 07/24/23 Range/Units 18:00 WBC 7.4 (3.8-10.6) k/uL RBC 5.94 H (4.30-5.90) m/uL Hgb 16.9 (13.0-17.5) gm/dL Hct 53.2 H (39.0-53.0) % Plt Count 141 L (150-450) k/uL Comprehensive Metabolic Panel 07/24/23 Range/Units 18:00 Sodium 141 (137-145) mmol/L Potassium 4.4 (3.5-5.1) mmol/L Chloride 108 H (98-107) mmol/L Carbon Dioxide 23 (22-30) mmol/L BUN 16 (9-20) mg/dL Creatinine 0.66 (0.66-1.25) mg/dL Glucose 127 H (74-99) mg/dL Calcium 10.6 H (8.4-10.2) mg/dL AST 32 (17-59) U/L ALT 29 (4-49) U/L Alkaline Phosphatase 105 (38-126) U/L Total Protein 7.7 (6.3-8.2) g/dL Albumin 4.7 (3.5-5.0) g/dL Current Medications Generic Name Dose Route Start Last Admin Trade Name Freq PRN Reason Stop Dose Admin Acetaminophen 650 mg 07/24/23 18:52 07/25/23 02:04 Acetaminophen Tab 325 Mg Tab PO 650 mg Q6HR PRN Administration Mild Pain or Fever > 100.5 Clonidine 0.2 mg 07/25/23 02:02 Clonidine Hcl 0.2 Mg Tab PO TID PRN Blood Pressure - High Dextrose/Water 25 ml 07/25/23 02:02 Dextrose 50% Syringe 50 Ml IVP PER PROTOCOL PRN Hypoglycemia Protocol Dextrose/Water 50 ml 07/25/23 02:02 Dextrose 50% Syringe 50 Ml IVP PER PROTOCOL PRN Hypoglycemia Protocol Hydromorphone HCl 0.5 mg 07/24/23 18:52 07/25/23 08:03 Hydromorphone 0.5 Mg/0.5 Ml Syringe IVP 0.5 mg Q3HR PRN Administration Moderate Pain (Scale 4 to 6) Hydromorphone HCl 1 mg 07/24/23 18:52 Hydromorphone 1 Mg/Ml 1 Ml Syringe IVP Q3HR PRN Severe Pain (Scale 7 to 10) Sodium Chloride 1,000 mls @ 100 mls/hr 07/25/23 02:15 07/25/23 02:17 Saline 0.9% IV 100 mls/hr .Q10H LEONILA Administration Insulin Aspart 0 unit 07/25/23 07:30 07/25/23 06:17 Insulin Aspart (Novolog) 100 Unit/Ml Vial SQ Not Given ACHS LEONILA Protocol Naloxone HCl 0.2 mg 07/24/23 18:52 Naloxone 0.4 Mg/Ml 1 Ml Vial IV Q2M PRN Opioid Reversal Ondansetron HCl 4 mg 07/24/23 18:52 Ondansetron 4 Mg/2 Ml Vial IVP Q8HR PRN Nausea And Vomiting Pantoprazole Sodium 40 mg 07/25/23 07:30 07/25/23 06:03 Pantoprazole 40 Mg Tablet PO 40 mg AC-BID LEONILA Administration Pravastatin Sodium 40 mg 07/25/23 21:00 Pravastatin Sodium 40 Mg Tab PO HS LEONILA Temazepam 15 mg 07/25/23 02:00 07/25/23 02:17 Temazepam 15 Mg Cap PO 15 mg HS PRN Administration Insomnia Intake and Output 07/24/23 07/25/23 07/25/23 22:59 06:59 14:59 Other: # Voids 2 1 Weight 107.955 kg 07/24/23 18:00 07/24/23 18:00
[2023-07-25] MEDS: LORazepam 1 MG TAB PO STA (10:31)
--- NOTE | 2023-07-25 11:28 | CA ---
Transthoracic Echo Report Name: Geovany Patel Age: 72 Gender: M : 1950 Exam Date: 07/25/2023 09:30 Exam Location: [facility] Ht (in): 69 Wt (lb): 238 Ordering Physician: Sobeida Flaherty Attending/Referring Phys: [id number], Krystina Grinding Machine Operator Shawnee Mayen RCS Procedure CPT: Indications: LVF Cardiac Hx: Technical Quality: Technically difficult study Contrast 1: Definity Total Dose (mL): 2 Contrast 2: Total Dose (mL): MEASUREMENTS (Male / Female) Normal Values 2D ECHO LV Diastolic Diameter PLAX 5.0 cm 4.2 - 5.9 / 3.9 - 5.3 cm LV Systolic Diameter PLAX 3.3 cm IVS Diastolic Thickness 1.6 cm 0.6 - 1.0 / 0.6 - 0.9 cm LVPW Diastolic Thickness 1.0 cm 0.6 - 1.0 / 0.6 - 0.9 cm LV Relative Wall Thickness 0.5 RV Internal Dim ED PLAX 2.4 cm LVOT Diameter 2.3 cm LV Diastolic Volume MOD BP 73.3 cm??? 67 - 155 / 56 - 104 cm??? LV Systolic Volume MOD BP 21.2 cm??? 22 - 58 / 19 - 49 cm??? LV Ejection Fraction MOD BP 71.0 % >= 55 % LV Cardiac Index MOD BP 1651.6 cm???/min???m??? LV Diastolic Volume MOD 4C 78.2 cm??? LV Systolic Volume MOD 4C 22.3 cm??? LV Ejection Fraction MOD 4C 71.5 % LV Cardiac Index MOD 4C 1772.3 cm???/min???m??? LV Diastolic Length 4C 7.7 cm LV Systolic Length 4C 5.9 cm LV Diastolic Volume MOD 2C 63.9 cm??? LV Systolic Volume MOD 2C 18.6 cm??? LV Ejection Fraction MOD 2C 70.9 % LV Cardiac Index MOD 2C 1436.1 cm???/min???m??? LV Diastolic Length 2C 7.1 cm LV Systolic Length 2C 5.4 cm LA Volume 69.2 cm??? 18 - 58 / 22 - 52 cm??? LA Volume Index 29.7 cm???/m??? 16 - 28 cm???/m??? Ascending Aorta Diameter 3.5 cm DOPPLER AV Peak Velocity 91.0 cm/s AV Peak Gradient 3.3 mmHg AV Mean Velocity 68.3 cm/s AV Mean Gradient 2.0 mmHg AV Velocity Time Integral 18.2 cm LVOT Peak Velocity 91.7 cm/s LVOT Peak Gradient 3.4 mmHg LVOT Velocity Time Integral 17.0 cm LVOT Stroke Volume 71.6 cm??? LVOT Stroke Volume Index 32.2 ml/m??? LVOT Cardiac Index 2271.4 cm???/min???m??? AV Area Cont Eq vti 3.9 cm??? AV Area Cont Eq pk 4.2 cm??? PV Peak Velocity 89.1 cm/s PV Peak Gradient 3.2 mmHg FINDINGS Left Ventricle Left ventricular ejection fraction is estimated at 60-65 % with beat to beat variability. Moderately increased septal wall thickness. Left ventricular cavity size normal. No obvious regional wall motion abnormalities. Right Ventricle Mild right ventricular dilatation with normal function. Unable to determine right ventricular systolic function. Right Atrium Normal right atrial size. Left Atrium Mildly increased left atrial volume. Mildly increased left atrial area. Mitral Valve Structurally normal mitral valve. No evidence for mitral valve prolapse. No mitral stenosis. Trace mitral regurgitation. Aortic Valve Trileaflet aortic valve. No aortic valve stenosis or regurgitation. Tricuspid Valve Structurally normal tricuspid valve. No tricuspid stenosis. No tricuspid regurgitation. Pulmonic Valve Pulmonic valve not well visualized. No pulmonic stenosis. No pulmonic regurgitation. Pericardium No pericardial effusion. Aorta Normal size aortic root and proximal ascending aorta. CONCLUSIONS Normal LV systolic function Mildly dilated right ventricle Previewed by: Dr. Artie Singh MD (Electronically Signed) Final Date: 25 July 2023 11:27
[2023-07-25 11:54] LABS: Glucose,Whole Blood 122 mg/dL (70-110)
[2023-07-25 11:56] LABS: ALT 28 U/L (10-49); AST 31 U/L (14-35); Albumin 4.8 g/dL (3.8-4.9); Albumin/Globulin Ratio 1.66 Ratio (1.60-3.17); Alkaline Phosphatase 98 U/L (41-126); BUN/Creat Ratio 15.25 Ratio (12.00-20.00); Blood Urea Nitrogen 12.2 mg/dL (9.0-27.0); Calcium 10.4 mg/dL (8.7-10.3); Chloride 104 mmol/L (96-109); Globulin 2.9 g/dL (1.6-3.3); Glucose 133 mg/dL (70-110); Potassium 4.4 mmol/L (3.5-5.5); Sodium 142 mmol/L (135-145); Total Bilirubin 0.5 mg/dL (0.3-1.2); Total Protein 7.7 g/dL (6.2-8.2)
--- NOTE | 2023-07-25 14:23 | P.GSHP ---
History of Present Illness H&P Date: 07/25/23 CHIEF COMPLAINT: Abdominal pain HISTORY OF PRESENT ILLNESS: This is a 72-year-old male who presented with abdominal pain. He has a dysfunctional gallbladder and was initially scheduled for outpatient cholecystectomy today with Dr. Wilson. Due to abnormal EKG and cardiac problems cholecystectomy was postponed. Patient had increase in pain and came into the ER for further evaluation. Patient evaluated by cardiology service. They have cleared patient to proceed with surgery. Patient does have right-sided abdominal pain. He denies any nausea or vomiting. His pain is sometimes worse with food. He has history of atrial fibrillation and last dose of Xarelto was July 20. Past surgical history does include colon cancer with bowel resection and chemotherapy in June 2016 at [place]. PAST MEDICAL HISTORY: Atrial Fibrillation, Coronary Artery Disease (CAD), Cancer, Heart Failure, Diabetes Mellitus, GERD/Reflux, Hyperlipidemia, Hypertension, Myocardial Infarction ([place]), Sleep Apnea/CPAP/BIPAP, Thyroid Disorder PAST SURGICAL HISTORY: Appendectomy, Bowel Resection, Heart Catheterization With Stent, Orthopedic Surgery MEDICATIONS: See below ALLERGIES: See below SOCIAL HISTORY: No illicit drug use. REVIEW OF SYSTEMS: CONSTITUTIONAL: Denies fever or chills. HEENT: Denies blurred vision, vision changes, or eye pain. Denies hemoptysis CARDIOVASCULAR: Denies chest pain or pressure. RESPIRATORY: No shortness of breath. GASTROINTESTINAL: See HPI for pertinent findings HEMATOLOGIC: Denies bleeding disorders. GENITOURINARY: Denies any blood in urine or increased urinary frequency. SKIN: Denies pruitis. Denies rash. PHYSICAL EXAM: VITAL SIGNS: Reviewed GENERAL: Well-developed in no acute distress. HEENT: No sclera icterus. Extraocular movements grossly intact. Moist buccal mucosa. Head is atraumatic, normocephalic. No nasal drainage. ABDOMEN: Soft. Nondistended. Right-sided tenderness with palpation NEUROLOGIC: Alert and oriented. Cranial nerves II through XII grossly intact. LABORATORY DATA: WBC 7.4 Hgb 16.9 platelets 141 Sodium 142 potassium is 4.4 creatinine 0.8 Lactic acid 2.1 down to 1.5 LFTs normal IMAGING: HIDA scan from 07/13/2023 no evidence of cholecystitis. Ejection fraction of 96% can be associated with hyperdynamic gallbladder ASSESSMENT: 1. Chronic cholecystitis 2. Abdominal pain PLAN: -Patient scheduled for laparoscopic cholecystectomy tomorrow with Dr. Wilson -N.p.oJeri after midnight -Low-fat diet today -Continue supportive care -Patient evaluated by cardiology and has received cardiac clearance for surgery -Hold Leonie Physician Trapeze Performer note has been reviewed by physician. Signing provider agrees with the documented findings, assessment, and plan of care. Past Medical History Past Medical History: Atrial Fibrillation, Coronary Artery Disease (CAD), Cancer, Heart Failure, Diabetes Mellitus, GERD/Reflux, Hyperlipidemia, Hypertension, Myocardial Infarction ([place]), Sleep Apnea/CPAP/BIPAP, Thyroid Disorder Additional Past Medical History / Comment(s): gout, skin ca, colon cancer with resection and chemo (2017)., c-pap machine., ulcer on side of right great toe- receives wound tx ., BPH., gall bladder pain. Last Myocardial Infarction Date:: 2006 History of Any Multi-Drug Resistant Organisms: None Reported Past Surgical History: Appendectomy, Bowel Resection, Heart Catheterization With Stent, Orthopedic Surgery Additional Past Surgical History / Comment(s): skin ca removed, lt shoulder surgery ,rt knee surgery, deviated septum surgery Past Anesthesia/Blood Transfusion Reactions: No Reported Reaction Date of Last Stent Placement:: 2006 Past Psychological History: Anxiety, Bipolar, Depression Smoking Status: Former smoker Past Alcohol Use History: Rare Past Drug Use History: None Reported - Past Family History Father Family Medical History: Asthma, Hyperlipidemia Additional Family Medical History / Comment(s): at age 61. was a heavy smoker,prostate sx a week before he not sure what took him. Mother Family Medical History: Dementia Additional Family Medical History / Comment(s): at age 75 from alzheimers Medications and Allergies Home Medications Medication Instructions Recorded Confirmed Type Potassium Chloride [Klor-Con 20] 20 meq PO DAILY 01/15/14 07/24/23 History Pravastatin Sodium [Pravachol] 40 mg PO HS 01/15/14 07/24/23 History allopurinoL [Zyloprim] 100 mg PO DAILY 07/28/15 07/24/23 History Sertraline HCl [Zoloft] 200 mg PO DAILY 11/05/15 07/24/23 History Rivaroxaban [Xarelto] 20 mg PO DIRECTED 07/27/17 07/24/23 History Empagliflozin [Jardiance] 25 mg PO DAILY 06/10/21 07/24/23 History Famotidine 20 mg PO DAILY 06/10/21 07/24/23 History Insulin Glargine,Hum.rec.anlog 1 - 20 unit SQ DAILY PRN 06/10/21 07/24/23 History [Lantus Solostar Pen] Pantoprazole [Protonix] 40 mg PO BID 06/10/21 07/24/23 History glipiZIDE [Glucotrol] 20 mg PO AC-BID 08/14/22 07/24/23 History Mirtazapine [Remeron] 22.5 mg PO HS 07/23/23 07/24/23 History Temazepam 7.5 mg PO HS 07/24/23 07/24/23 History Temazepam [Restoril] 15 mg PO HS 07/24/23 07/24/23 History Allergies Allergy/AdvReac Type Severity Reaction Status Date / Time clopidogrel bisulfate Allergy Rash/Hives Verified 07/24/23 22:41 [From Plavix] Sulfa (Sulfonamide Allergy Rash/Hives Verified 07/24/23 22:41 Antibiotics) gabapentin AdvReac Aggression, Verified 07/24/23 22:41 anxiety, mood swings metformin AdvReac Diarrhea Verified 07/24/23 22:41 morphine AdvReac Hallucinati Verified 07/24/23 22:41 ons pregabalin [From Lyrica] AdvReac Aggression, Verified 07/24/23 22:41 anxiety, mood swings Surgical - Exam Vital Signs Temp Pulse Resp BP Pulse Ox 97.8 F 71 18 184/73 98 07/24/23 17:18 07/24/23 17:18 07/24/23 17:18 07/24/23 17:18 07/24/23 17:18 Results - Labs 07/24/23 18:00 07/25/23 07:06 Abnormal Lab Results - Last 24 Hours (Table) 07/24/23 07/24/23 07/24/23 Range/Units 18:00 18:00 18:00 RBC 5.94 H (4.30-5.90) m/uL Hct 53.2 H (39.0-53.0) % RDW 16.3 H (11.5-15.5) % Plt Count 141 L (150-450) k/uL Chloride 108 H (98-107) mmol/L Anion Gap (4.00-12.00) mmol/L Glucose 127 H (74-99) mg/dL POC Glucose (mg/dL) (70-110) mg/dL Plasma Lactic Acid Iván 2.1 H* (0.7-2.0) mmol/L Calcium 10.6 H (8.4-10.2) mg/dL 07/25/23 07/25/23 07/25/23 Range/Units 05:50 07:06 11:35 RBC (4.30-5.90) m/uL Hct (39.0-53.0) % RDW (11.5-15.5) % Plt Count (150-450) k/uL Chloride (98-107) mmol/L Anion Gap 14.00 H (4.00-12.00) mmol/L Glucose 133 H (74-99) mg/dL POC Glucose (mg/dL) 128 H 122 H (70-110) mg/dL Plasma Lactic Acid Iván (0.7-2.0) mmol/L Calcium 10.4 H (8.4-10.2) mg/dL Diabetes panel 07/24/23 07/25/23 Range/Units 18:00 07:06 Sodium 141 142 (137-145) mmol/L Potassium 4.4 4.4 (3.5-5.1) mmol/L Chloride 108 H 104 (98-107) mmol/L Carbon Dioxide 23 24.0 (22-30) mmol/L BUN 16 12.2 (9-20) mg/dL Creatinine 0.66 0.8 (0.66-1.25) mg/dL Glucose 127 H 133 H (74-99) mg/dL Calcium 10.6 H 10.4 H (8.4-10.2) mg/dL AST 32 31 (17-59) U/L ALT 29 28 (4-49) U/L Alkaline Phosphatase 105 98 (38-126) U/L Total Protein 7.7 7.7 (6.3-8.2) g/dL Albumin 4.7 4.8 (3.5-5.0) g/dL Calcium panel 07/24/23 07/25/23 Range/Units 18:00 07:06 Calcium 10.6 H 10.4 H (8.4-10.2) mg/dL Albumin 4.7 4.8 (3.5-5.0) g/dL Pituitary panel 07/24/23 07/25/23 Range/Units 18:00 07:06 Sodium 141 142 (137-145) mmol/L Potassium 4.4 4.4 (3.5-5.1) mmol/L Chloride 108 H 104 (98-107) mmol/L Carbon Dioxide 23 24.0 (22-30) mmol/L BUN 16 12.2 (9-20) mg/dL Creatinine 0.66 0.8 (0.66-1.25) mg/dL Glucose 127 H 133 H (74-99) mg/dL Calcium 10.6 H 10.4 H (8.4-10.2) mg/dL Adrenal panel 07/24/23 07/25/23 Range/Units 18:00 07:06 Sodium 141 142 (137-145) mmol/L Potassium 4.4 4.4 (3.5-5.1) mmol/L Chloride 108 H 104 (98-107) mmol/L Carbon Dioxide 23 24.0 (22-30) mmol/L BUN 16 12.2 (9-20) mg/dL Creatinine 0.66 0.8 (0.66-1.25) mg/dL Glucose 127 H 133 H (74-99) mg/dL Calcium 10.6 H 10.4 H (8.4-10.2) mg/dL Total Bilirubin 0.6 0.5 (0.2-1.3) mg/dL AST 32 31 (17-59) U/L ALT 29 28 (4-49) U/L Alkaline Phosphatase 105 98 (38-126) U/L Total Protein 7.7 7.7 (6.3-8.2) g/dL Albumin 4.7 4.8 (3.5-5.0) g/dL
[2023-07-25] MEDS: lisinopriL 10 MG TAB PO SCH (15:42)
[2023-07-25] MEDS: amLODIPine 10 MG TAB PO SCH (15:42)
[2023-07-25] MEDS: SERTRALINE 100 MG TAB PO SCH (15:43)
[2023-07-25] MEDS: allopurinoL 100 MG TAB PO SCH (15:46)
--- NOTE | 2023-07-25 16:45 | P.PN ---
Subjective Progress Note Date: 07/25/23 Hospital course: Patient is a very pleasant 72-year-old male with a past medical history of CAD status post stenting, chronic diastolic heart failure, atrial fibrillation, hypertension, hyperlipidemia, type II insulin-dependent diabetes melitis, and known chronic cholecystitis. He presented to the emergency department on 07/24/2023 with a chief complaint of abdominal pain. Patient was awaiting outpatient cardiac clearance to undergo scheduled outpatient cholecystectomy, however he reports abdominal pain worsening and he called his surgeon and was instructed to come to the emergency department. He underwent full evaluation in the emergency department. Upon arrival vital signs as follows, blood pressure 184/73, heart rate 71, respiratory rate 18, temp 97.8 F, and SpO2 of 98% on room air. EKG completed showing atrial fibrillation with a controlled vent ricular rate of 66 bpm and a right bundle branch block. Chest x-ray completed showing cardiomegaly and mild pulmonary vascular congestion. Labs completed and reviewed. CBC showing thrombocytopenia with platelet count of 141. BMP showing hyperchloremia with chloride of 108 and otherwise normal findings. Calcium was elevated at 10.6. Lactate slightly elevated at 2.1. Troponin less than 0.012. Lipase 96. He was admitted under the general surgery team for intractable abdominal pain with known chronic cholecystitis. We were consulted for medical management and cardiology was consulted for cardiac clearance for patient to undergo planned laparoscopic cholecystectomy. Physical exam: Vital signs reviewed and stable. General: Nontoxic, no distress and appears stated age. Derm: Skin warm and dry, normal coloration for ethnicity. Head: Atraumatic, normocephalic and symmetric. Eyes: EOMs intact, no lid lag, and anicteric sclera Mouth: no lip lesions, mucus membranes moist Cardiovascular: irregularly irregular, no murmur, positive posterior tibial pulses bilaterally, and cap refill < 2 seconds. Lungs: Respirations even, regular, and unlabored. Lungs diminished, no rhonchi, no rales, no wheezing, and no accessory muscle usage. Abdominal: soft, nontender to palpation, no guarding, no appreciable organomegaly Ext: ROM intact. No gross muscle atrophy, no edema, no contractures Neuro: Speech clear, face symmetrical and CN II-XII grossly intact with no noted focal neuro deficits Psych: Alert and oriented to person, place, time, and situation. Appropriate and pleasant affect. Assessment and Plan of Care: Intractable abdominal pain with chronic cholecystitis -Management per primary admitting general surgery team. Lactic acidosis, resolved with IV fluid hydration. Hypercalcemia, improving with gentle IV fluid hydration. Order placed for PTH. CAD status post stenting Chronic diastolic heart failure Chronic Atrial fibrillation Hypertension Hyperlipidemia -Echocardiogram was completed and report reviewed showing preserved EF of 60 to 65% with mildly dilated right ventricle otherwise no significant valvular or structural abnormalities reported. -Continue daily medication regimen with amlodipine 10 mg daily, lisinopril 10 mg daily, and pravastatin 40 mg nightly. -Xarelto held, recommend resumption of anticoagulant for atrial fibrillation once cleared by primary admitting general surgery team. Type 2 insulin-dependent diabetes mellitus -Hold Jardiance and glipizide. Patient placed on glycemic protocol with NovoLog sliding scale. Data and imaging reviewed: -Repeat EKG completed this morning showing atrial fibrillation with a controlled ventricular rate of 67 bpm with a right bundle branch block . -Echocardiogram was completed showing preserved EF of 60 to 65% with mildly dilated right ventricle otherwise no significant valvular or structural abnormalities reported. -Repeat calcium showing slight improvement decreasing to 10.4. Order placed for PTH otherwise recommend continued gentle IV fluid hydration. -Vital signs reviewed and stable with blood pressure 127/68, heart rate 67, respiratory rate 18, temp 98.1 F, and SpO2 of 96% on 3 L. Thank you for allowing us to participate in the care of this pleasant patient. Do not hesitate to contact us with questions. Someone can be reached from the [facility] hospitalist group all hours of the day at [phone] or via perfect serve. Patient was seen independently by Nurse Pracitioner. This document was prepared using [employer] dictation software. Please allow for errors in group care worker, while rare they do occur. Objective - Vital Signs Vital signs: Vital Signs Temp 98 F 07/25/23 14:37 Pulse 70 07/25/23 14:37 Resp 18 07/25/23 14:37 BP 146/50 07/25/23 14:37 Pulse Ox 97 07/25/23 14:37 FiO2 Intake & Output 07/24/23 07/25/23 07/25/23 18:59 06:59 18:59 Intake Total 180 Output Total 200 Balance -20 Weight 107.955 kg 107.955 kg Intake: Oral 180 Output: Urine 200 Other: # Voids 1 1 - Labs CBC & Chem 7: 03/05/24 18:00 07/25/23 07:06 Labs: Abnormal Lab Results - Last 24 Hours (Table) 07/24/23 07/24/23 07/24/23 Range/Units 18:00 18:00 18:00 RBC 5.94 H (4.30-5.90) m/uL Hct 53.2 H (39.0-53.0) % RDW 16.3 H (11.5-15.5) % Plt Count 141 L (150-450) k/uL Chloride 108 H (98-107) mmol/L Anion Gap (4.00-12.00) mmol/L Glucose 127 H (74-99) mg/dL POC Glucose (mg/dL) (70-110) mg/dL Plasma Lactic Acid Iván 2.1 H* (0.7-2.0) mmol/L Calcium 10.6 H (8.4-10.2) mg/dL 07/25/23 07/25/23 07/25/23 Range/Units 05:50 07:06 11:35 RBC (4.30-5.90) m/uL Hct (39.0-53.0) % RDW (11.5-15.5) % Plt Count (150-450) k/uL Chloride (98-107) mmol/L Anion Gap 14.00 H (4.00-12.00) mmol/L Glucose 133 H (74-99) mg/dL POC Glucose (mg/dL) 128 H 122 H (70-110) mg/dL Plasma Lactic Acid Iván (0.7-2.0) mmol/L Calcium 10.4 H (8.4-10.2) mg/dL
[2023-07-25 17:43] LABS: Glucose,Whole Blood 133 mg/dL (70-110)
[2023-07-25] MEDS: MIRTAZAPINE 15 MG TAB PO SCH (19:52)
[2023-07-25] MEDS: PRAVASTATIN SODIUM 40 MG TAB PO SCH (19:52)
[2023-07-25] MEDS: TEMAZEPAM 7.5 MG CAP PO SCH (19:52)
[2023-07-25 20:30] LABS: Glucose,Whole Blood 135 mg/dL (70-110)
[2023-07-26] MEDS: LORazepam 1 MG TAB PO STA (02:37)
[2023-07-26 05:54] LABS: Glucose,Whole Blood 116 mg/dL (70-110)
[2023-07-26 08:51] LABS: HGB 15.6 g/dL (13.0-17.0); MCH 27.2 pg (27.0-32.0); MCHC 30.6 g/dL (32.0-37.0); Mean Platelet Volume 10.4 FL (9.5-12.2); NRBC Per 100 WBC 0 X 10*3/uL (0.00-0.01); Platelet Count 162 X 10*3/uL (140-440); RBC 5.73 X 10*6/uL (4.40-5.60); RDW 16.8 % (11.5-14.5); WBC 7.32 X 10*3/uL (4.50-10.00)
[2023-07-26 08:54] LABS: Magnesium 2.2 mg/dL (1.5-2.4)
[2023-07-26 09:06] LABS: ALT 24 U/L (10-49); AST 27 U/L (14-35); Albumin 4.1 g/dL (3.8-4.9); Albumin/Globulin Ratio 1.78 Ratio (1.60-3.17); Alkaline Phosphatase 75 U/L (41-126); BUN/Creat Ratio 11.11 Ratio (12.00-20.00); Calcium 9.6 mg/dL (8.7-10.3); Chloride 109 mmol/L (96-109); Globulin 2.3 g/dL (1.6-3.3); Glucose 113 mg/dL (70-110); Potassium 4.3 mmol/L (3.5-5.5); Sodium 144 mmol/L (135-145); Total Bilirubin 0.5 mg/dL (0.3-1.2); Total Protein 6.4 g/dL (6.2-8.2)
--- NOTE | 2023-07-26 10:10 | P.PN ---
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 He has a past medical history of coronary artery disease, permanent atrial fibrillation, hyperlipidemia diabetes mellitus type 2, gastroesophageal reflux disease, chronic cholecystitis. We have been asked to evaluate the patient for surgical clearance with history of coronary artery disease and atrial fibrillation. Patient is tentatively scheduled for cholecystectomy. Patient does have history of having cardiac stent done in 2006 and underwent a stress test approximately 2 months ago. He states his abdominal pain is better at this time. He denies having any chest pain nor shortness of breath. EKG atrial fibrillation with ventricular rate of 66 bpm. Echocardiogram performed 07/25/2023 reveals normal LV function, mildly dilated right ventricle. Chest x-ray: Cardiomegaly with mild pulmonary vascular congestion. WBC 7.4, hemoglobin 16.9, platelet count 141. BUN 16, creatinine 0.66, potassium 4.4. Calcium 10.6. Lactic acid initially 2.1 with repeat 1.5. Liver function test are normal. Troponin negative x 1. proBNP 224. Lipase 96. Home cardiac medications: Pravastatin 40 mg at bedtime, Xarelto 20 mg daily but has been on hold for planned surgery. Lexiscan stress test performed 11/26/2018 was negative for reversible ischemia. Echocardiogram performed 10/28/2018 revealed EF of 55 to 60%, moderate concentric left ventricular hypertrophy, mild mitral regurgitation, mild tricuspid regurgitation, trace pulmonic regurgitation. 07/25 Patient is scheduled for laparoscopic cholecystectomy today. Patient denies having any chest pain or shortness of breath. Yesterday, patient was started on amlodipine and lisinopril for blood pressure control. Blood pressure is now 136/76-155/93. Heart rate is in the 70s, pulse ox 97% on room air. Repeat blood work reveals hemoglobin of 15.6, WBC 7.3. Electrolytes are normal. Creatinine 0.9. Physical examination: Gen: This is a 72-year-old male in no acute distress VS: reviewed HEENT: Head is atraumatic, normocephalic. Pupils equal, round. Sclerae is anicteric. LUNGS: Clear to auscultation. No wheezes or rhonchi. No intercostal retractions. HEART: Regular rate and rhythm. EXTREMITIES: No pedal edema. No calf tenderness. NEUROLOGICAL: Patient is awake, alert and oriented x3. Assessment: Chronic cholecystitis Lactic acidosis Uncontrolled hypertension History of coronary artery disease Permanent atrial fibrillation Diabetes mellitus type 2 Hypertension Hyperlipidemia Plan: Continue patient's home cardiac medications Xarelto remains on hold for planned surgery. Plan to resume Xarelto once cleared by general surgeon. Continue patient on amlodipine 10 mg daily and lisinopril 10 mg daily for blood pressure control Patient is cleared by cardiology for surgery. Thank you kindly for this consultation. Nurse practitioner note has been reviewed, I agree with documented findings and plan of care. Patient was seen and examined. Objective - Vital Signs Vital signs: Vital Signs Temp 97.8 F 07/26/23 02:00 Pulse 73 07/26/23 02:00 Resp 16 07/26/23 02:00 BP 136/76 07/26/23 02:00 Pulse Ox 98 07/26/23 02:00 FiO2 Intake & Output 07/25/23 07/26/23 07/26/23 18:59 06:59 18:59 Intake Total 270 Output Total 200 Balance 70 Intake: Oral 270 Output: Urine 200 Other: Voiding Method Toilet # Voids 2 5 - Labs CBC & Chem 7: 07/26/23 05:49 07/26/23 05:49 Labs: Abnormal Lab Results - Last 24 Hours (Table) 07/25/23 07/25/23 07/25/23 Range/Units 07:06 11:35 17:39 Anion Gap 14.00 H (4.00-12.00) mmol/L Glucose 133 H (70-110) mg/dL POC Glucose (mg/dL) 122 H 133 H (70-110) mg/dL Calcium 10.4 H (8.7-10.3) mg/dL 07/25/23 07/26/23 Range/Units 20:29 05:52 Anion Gap (4.00-12.00) mmol/L Glucose (70-110) mg/dL POC Glucose (mg/dL) 135 H 116 H (70-110) mg/dL Calcium (8.7-10.3) mg/dL
--- NOTE | 2023-07-26 11:02 | P.PN ---
Subjective Progress Note Date: 07/26/23 Hospital course: Patient is a very pleasant 72-year-old male with a past medical history of CAD status post stenting, chronic diastolic heart failure, atrial fibrillation, hypertension, hyperlipidemia, type II insulin-dependent diabetes melitis, and known chronic cholecystitis. He presented to the emergency department on 07/24/2023 with a chief complaint of abdominal pain. Patient was awaiting outpatient cardiac clearance to undergo scheduled outpatient cholecystectomy, however he reports abdominal pain worsening and he called his surgeon and was instructed to come to the emergency department. He underwent full evaluation in the emergency department. Upon arrival vital signs as follows, blood pressure 184/73, heart rate 71, respiratory rate 18, temp 97.8 F, and SpO2 of 98% on room air. EKG completed showing atrial fibrillation with a controlled ventricular rate of 66 bpm and a right bundle branch block. Chest x-ray completed showing cardiomegaly and mild pulmonary vascular congestion. Labs completed and reviewed. CBC showing thrombocytopenia with platelet count of 141. BMP showing hyperchloremia with chloride of 108 and otherwise normal findings. Calcium was elevated at 10.6. Lactate slightly elevated at 2.1. Tro ponin less than 0.012. Lipase 96. He was admitted under the general surgery team for intractable abdominal pain with known chronic cholecystitis. We were consulted for medical management and cardiology was consulted for cardiac clearance for patient to undergo planned laparoscopic cholecystectomy .Echocardiogram was completed showing preserved EF of 60 to 65% with mildly dilated right ventricle otherwise no significant valvular or structural abnormalities reported. Repeat EKG completed 07/25/2023 showing atrial fibrillation with a controlled ventricular rate of 67 bpm with a right bundle branch block . Physical exam: Patient was seen and fully evaluated at bedside this morning. He currently reports feeling slightly better but reports abdominal pain is starting to come back. He is currently awaiting to be taken down for scheduled laparoscopic cholecystectomy. Patient denies having any other complaints, questions, or ne eds at this time. Vital signs reviewed and stable. General: Nontoxic, no distress and appears stated age. Derm: Skin warm and dry, normal coloration for ethnicity. Head: Atraumatic, normocephalic and symmetric. Eyes: EOMs intact, no lid lag, and anicteric sclera Mouth: no lip lesions, mucus membranes moist Cardiovascular: irregularly irregular, no murmur, positive posterior tibial pulses bilaterally, and cap refill < 2 seconds. Lungs: Respirations even, regular, and unlabored. Lungs diminished, no rhonchi, no rales, no wheezing, and no accessory muscle usage. Abdominal: soft, nontender to palpation, no guarding, no appreciable organomegaly Ext: ROM intact. No gross muscle atrophy, no edema, no contractures Neuro: Speech clear, face symmetrical and CN II-XII grossly intact with no noted focal neuro deficits Psych: Alert and oriented to person, place, time, and situation. Appropriate and pleasant affect. Assessment and Plan of Care: Intractable abdominal pain with chronic cholecystitis -Management per primary admitting general surgery team, patient scheduled for laparoscopic cholecystectomy later today.. -Symptomatic care and pain management. Hypercalcemia, resolved after IV fluid hydration. -PTH elevated at 92.3. Recommend outpatient follow-up with team lead and general surgery after discharge for further testing and/or management if indicated. Lactic acidosis, resolved with IV fluid hydration. CAD status post stenting Chronic diastolic heart failure Chronic Atrial fibrillation Hypertension Hyperlipidemia -Echocardiogram was completed and report reviewed showing preserved EF of 60 to 65% with mildly dilated right ventricle otherwise no significant valvular or structural abnormalities reported. -Continue daily medication regimen with amlodipine 10 mg daily, lisinopril 10 mg daily, and pravastatin 40 mg nightly. -Xarelto held, recommend resumption of anticoagulant for atrial fibrillation once cleared by primary admitting general surgery team. Type 2 insulin-dependent diabetes mellitus, hemoglobin A1c 6.5% -Hold Jardiance and glipizide. Patient placed on glycemic protocol with NovoLog sliding scale. Data and imaging reviewed: -Vital signs reviewed. Blood pressure 155/93, heart rate 75, respiratory rate 16, temp 97.3 F, and SpO2 of 97% on room air. -Morning labs reviewed showing resolution of hypercalcemia after IV fluid hydration with morning calcium of 9.6. PTH was elevated at 92.3. Hemoglobin A1c is 6.5%. CBC showing no significant abnormalities. BMP unremarkable. Blood glucose 113. Liver profile remains unremarkable. Magnesium 2.2. Thank you for allowing us to participate in the care of this pleasant patient. Do not hesitate to contact us with questions. Someone can be reached from the [facility] hospitalist group all hours of the day at [phone] or via perfect serve. Patient was seen independently by Nurse Pracitioner. This document was prepared using [employer] dictation software. Please allow for errors in purchasing analyst, while rare they do occur. I reviewed the documentation as provided by the REGAN above, who is the original author of this note. I agree with the documented assessment and plan, with the following changes: none Objective - Vital Signs Vital signs: Vital Signs Temp 97.8 F 07/26/23 02:00 Pulse 73 07/26/23 02:00 Resp 16 07/26/23 02:00 BP 136/76 07/26/23 02:00 Pulse Ox 98 07/26/23 02:00 FiO2 Intake & Output 07/25/23 07/26/23 07/26/23 18:59 06:59 18:59 Intake Total 270 Output Total 200 Balance 70 Intake: Oral 270 Output: Urine 200 Other: Voiding Method Toilet # Voids 2 5 - Labs CBC & Chem 7: 07/26/23 05:49 07/26/23 05:49 Labs: Abnormal Lab Results - Last 24 Hours (Table) 07/25/23 07/25/23 07/25/23 Range/Units 07:06 11:35 17:39 Anion Gap 14.00 H (4.00-12.00) mmol/L Glucose 133 H (70-110) mg/dL POC Glucose (mg/dL) 122 H 133 H (70-110) mg/dL Calcium 10.4 H (8.7-10.3) mg/dL 07/25/23 07/26/23 Range/Units 20:29 05:52 Anion Gap (4.00-12.00) mmol/L Glucose (70-110) mg/dL POC Glucose (mg/dL) 135 H 116 H (70-110) mg/dL Calcium (8.7-10.3) mg/dL
[2023-07-26 12:41] LABS: Glucose,Whole Blood 97 mg/dL (70-110)
--- NOTE | 2023-07-26 14:09 | P.PN ---
Subjective Progress Note Date: 07/26/23 CHIEF COMPLAINT: Chronic cholecystitis HISTORY OF PRESENT ILLNESS: Patient sitting at bedside chair. Does report some right-sided abdominal pain. Denies any chest pain or shortness of breath. Vital stable. WBC 7.32 Hgb 15.6 platelets 162 creatinine 0.9 potassium 4.3 sodium 144 PHYSICAL EXAM: VITAL SIGNS: Reviewed. GENERAL: Well-developed in no acute distress. ABDOMEN: Soft. Nondistended. . NEUROLOGIC: Alert and oriented. Cranial nerves II through XII grossly intact. ASSESSMENT: 1. Chronic cholecystitis 2. Abdominal pain PLAN: -Patient scheduled for laparoscopic cholecystectomy today with Dr. Wilson Physician Computer Art Instructor note has been reviewed by physician. Signing provider agrees with the documented findings, assessment, and plan of care. Objective - Vital Signs Vital signs: Vital Signs Temp 97.3 F L 07/26/23 07:50 Pulse 75 07/26/23 08:00 Resp 16 07/26/23 08:00 BP 155/93 07/26/23 07:50 Pulse Ox 97 07/26/23 07:50 FiO2 Intake & Output 07/25/23 07/26/23 07/26/23 18:59 06:59 18:59 Intake Total 270 Output Total 200 Balance 70 Intake: Oral 270 Output: Urine 200 Other: Voiding Method Toilet Toilet # Voids 2 5 - Labs CBC & Chem 7: 07/26/23 05:49 07/26/23 05:49 Labs: Abnormal Lab Results - Last 24 Hours (Table) 07/25/23 07/25/23 07/26/23 Range/Units 17:39 20:29 05:49 RBC (4.40-5.60) X 10*6/uL Hct (39.6-50.0) % MCHC (32.0-37.0) g/dL RDW (11.5-14.5) % BUN/Creatinine Ratio (12.00-20.00) Ratio Glucose (70-110) mg/dL POC Glucose (mg/dL) 133 H 135 H (70-110) mg/dL Hemoglobin A1c 6.5 H (<=6.0) % PTH Intact (14.0-72.0) pg/mL 07/26/23 07/26/23 07/26/23 Range/Units 05:49 05:49 05:49 RBC 5.73 H (4.40-5.60) X 10*6/uL Hct 51.0 H (39.6-50.0) % MCHC 30.6 L (32.0-37.0) g/dL RDW 16.8 H (11.5-14.5) % BUN/Creatinine Ratio 11.11 L (12.00-20.00) Ratio Glucose 113 H (70-110) mg/dL POC Glucose (mg/dL) (70-110) mg/dL Hemoglobin A1c (<=6.0) % PTH Intact 92.3 H (14.0-72.0) pg/mL 07/26/23 Range/Units 05:52 RBC (4.40-5.60) X 10*6/uL Hct (39.6-50.0) % MCHC (32.0-37.0) g/dL RDW (11.5-14.5) % BUN/Creatinine Ratio (12.00-20.00) Ratio Glucose (70-110) mg/dL POC Glucose (mg/dL) 116 H (70-110) mg/dL Hemoglobin A1c (<=6.0) % PTH Intact (14.0-72.0) pg/mL
[2023-07-26] MEDS: ONDANSETRON 4 MG/2 ML VIAL IVP ONE (15:29)
[2023-07-26] MEDS: LACTATED RINGERS 1,000 ML IV ONE (15:29)
[2023-07-26 15:37] LABS: Glucose,Whole Blood 96 mg/dL (70-110)
[2023-07-26] MEDS: HEPARIN SODIUM,PORCINE 5,000 UNIT/ML 1 ML VIAL SQ ONE (16:09)
[2023-07-26] MEDS ORDERED: fentaNYL (PF) 50 MCG/ML 2 ML AMP ONE (16:19)
[2023-07-26] MEDS ORDERED: SUCCINYLCHOLINE CHLORIDE 200 MG/10 ML VIAL IV ONE (16:19)
[2023-07-26] MEDS ORDERED: hydrALAZINE HCL 20 MG/ML 1 ML VIAL ONE (16:19)
[2023-07-26] MEDS ORDERED: LIDOCAINE 1% INJ 10MG/ML (20 ML MDV) ONE (16:19)
[2023-07-26] MEDS ORDERED: ROCURONIUM 10 MG/ML (5 ML VIAL) IV ONE (16:19)
[2023-07-26] MEDS ORDERED: SUGAMMADEX SODIUM 200 MG/2 ML SDV IV ONE (16:19)
[2023-07-26] MEDS ORDERED: PHENYLEPHRINE 10 MG/ML VIAL ONE (16:19)
[2023-07-26] MEDS ORDERED: PROPOFOL 10 MG/ML 20 ML VIAL IV ONE (16:19)
[2023-07-26] MEDS: BUPIVACAINE (PF) 0.25% 30 ML VIAL SQ ONE (16:21)
[2023-07-26] MEDS: ceFAZolin 1,000 MG VIAL IVPB ONE (16:39)
[2023-07-26] MEDS: HYDROmorphone 0.5 MG/0.5 ML SYRINGE IVP ONE ×3 (17:18→18:02)
[2023-07-26] MEDS ORDERED: ONDANSETRON 4 MG/2 ML VIAL IVP PRN (17:32)
[2023-07-26] MEDS ORDERED: HYDROmorphone 1 MG/ML 1 ML SYRINGE IVP PRN (17:32)
--- NOTE | 2023-07-26 17:32 | P.OP ---
Date of Procedure: 07/26/23 Preoperative Diagnosis: Cholecystitis Postoperative Diagnosis: Cholecystitis Procedure(s) Performed: Laparoscopic cholecystectomy Anesthesia: ROBERT Surgeon: Isael Wilson Estimated Blood Loss (ml): 5 Pathology: other (Gallbladder) Condition: stable Disposition: PACU Description of Procedure: The patient was placed on the operating table. The patient received a general endotracheal tube anesthesia. The patients abdomen was prepped and draped in the usual sterile fashion. Through an infraumbilical stab incision, the fascia of the anterior abdominal wall was grasped with a pair of Kochers and then the Veress needle was placed in the peritoneal cavity. Position of the Veress needle was confirmed with positive drop test. The abdomen was then insufflated. After adequate insufflation, the 10 mm trocar was placed in the peritoneal cavity. Following this the laparoscope was placed in the peritoneal cavity. The patient was placed in the head-up, right side up position and then a 5 mm trocar was placed in the right lateral and right subcostal position under direct visualization. A 8 mm trocar was placed in the epigastric position. The gallbladder was grasped in the fundus and infundibulum. Traction on the gallbladder was placed in the lateral and the cephalad positions. The triangle of Calot was visualized.. The cystic duct was bluntly dissected until the union of the cystic duct and common bile duct was seen. A critical view of safety was achieved. The cystic duct was then divided and sealed with the Harmonic scissors. A PDS Endoloop was then placed throughout the cystic duct stump. The cystic artery divided and sealed with the Harmonic scissors. The gallbladder was then removed from the liver bed using Harmonic scissors. The gallbladder was then extracted through the epigastric port site. Operative field was checked for any bleeding spots and Harmonic scissors was used to coagulate the liver bed. The abdomen was irrigated. The trocars were removed. The skin was closed using interrupted 3-0 Vicryl suture. Dermabond dressing were applied. The patient tolerated the procedure well.
[2023-07-26 18:57] LABS: Glucose,Whole Blood 116 mg/dL (70-110)
[2023-07-26 20:22] LABS: Glucose,Whole Blood 108 mg/dL (70-110)
[2023-07-26] MEDS: HYDROmorphone 1 MG/ML 1 ML SYRINGE IVP PRN (23:04)
[2023-07-27 05:59] LABS: Glucose,Whole Blood 113 mg/dL (70-110)
[2023-07-27] MEDS ORDERED: HYDROcodone/APAP 5-325MG 1 EACH TAB PO PRN (08:39)
[2023-07-27] MEDS: ENOXAPARIN 40 MG/0.4 ML SYRINGE SQ SCH (08:52)
[2023-07-27 09:32] VITALS: BP 107/63; PULSE 89; RESP 18; TEMP 97.4
--- NOTE | 2023-07-27 10:51 | P.DS ---
Providers Date of admission: 07/24/23 18:46 Expected date of discharge: 07/27/23 Attending physician: Isael Wilson Consults: 07/24/23 18:52 Consult Physician Urgent Consulting Provider: Ashutosh Mcginnis Consult Reason/Comments: Surgical clearance, hx CAD and a-fib Do you want consulting provider notified?: Yes Consult Physician Urgent Consulting Provider: Yasmine Soto Consult Reason/Comments: Medical management, surgical clearance Do you want consulting provider notified?: Yes Primary care physician: [facility] Hospital Course: Discharge diagnosis 1. Cholecystitis Hospital course This is a 72-year-old male who presented with abdominal pain. He has a dysfunctional gallbladder and was initially scheduled for outpatient cholecystectomy today with Dr. Wilson. Due to abnormal EKG and cardiac problems cholecystectomy was postponed. Patient had increase in pain and came into the ER for further evaluation. Patient evaluated by cardiology service. They have cleared patient to proceed with surgery. Patient is status post laparoscopic cholecystectomy. Patient tolerated surgery well. Pain is controlled. Tolerating diet. Has been up and ambulating. He is afebrile. He has been seen and examined by Dr. Wilson. He is stable for discharge. Please refer to chart for any further details. Physician Flight Communications Operator note has been reviewed by physician. Signing provider agrees with the documented findings, assessment, and plan of care. Patient Condition at Discharge: Stable Plan - Discharge Summary New Discharge Prescriptions: New Acetaminophen Tab [Tylenol] 1,000 mg PO Q6HR PRN #30 tablet PRN Reason: Pain Continue Pravastatin Sodium [Pravachol] 40 mg PO HS Potassium Chloride [Klor-Con 20] 20 meq PO DAILY allopurinoL [Zyloprim] 100 mg PO DAILY Sertraline HCl [Zoloft] 200 mg PO DAILY Insulin Glargine,Hum.rec.anlog [Lantus Solostar Pen] 1 - 20 unit SQ DAILY PRN PRN Reason: Blood Sugar - High Famotidine 20 mg PO DAILY Mirtazapine [Remeron] 22.5 mg PO HS Temazepam 7.5 mg PO HS Empagliflozin [Jardiance] 25 mg PO DAILY Pantoprazole [Protonix] 40 mg PO BID glipiZIDE [Glucotrol] 20 mg PO AC-BID Temazepam [Restoril] 15 mg PO HS No Action Rivaroxaban [Xarelto] 20 mg PO DIRECTED Discharge Medication List Potassium Chloride [Klor-Con 20] 20 meq PO DAILY 01/15/14 [History] Pravastatin Sodium [Pravachol] 40 mg PO HS 01/15/14 [History] allopurinoL [Zyloprim] 100 mg PO DAILY 07/28/15 [History] Sertraline HCl [Zoloft] 200 mg PO DAILY 11/05/15 [History] Rivaroxaban [Xarelto] 20 mg PO DIRECTED 07/27/17 [History] Empagliflozin [Jardiance] 25 mg PO DAILY 06/10/21 [History] Famotidine 20 mg PO DAILY 06/10/21 [History] Insulin Glargine,Hum.rec.anlog [Lantus Solostar Pen] 1 - 20 unit SQ DAILY PRN 06/10/21 [History] Pantoprazole [Protonix] 40 mg PO BID 06/10/21 [History] glipiZIDE [Glucotrol] 20 mg PO AC-BID 08/14/22 [History] Mirtazapine [Remeron] 22.5 mg PO HS 07/23/23 [History] Temazepam 7.5 mg PO HS 07/24/23 [History] Temazepam [Restoril] 15 mg PO HS 07/24/23 [History] Acetaminophen Tab [Tylenol] 1,000 mg PO Q6HR PRN #30 tablet 07/27/23 [Rx] Follow up Appointment(s)/Referral(s): [facility],Clinic [Primary Care Provider] - 1-2 days Isael Wilson MD [STAFF PHYSICIAN] - 1 Week Activity/Diet/Wound Care/Special Instructions: Activity: As tolerated. Take breaks as needed. Diet: Heart healthy and carb consistent diet. Avoid salts, or foods with hidden salts such as canned or boxed foods and frozen dinners. Extra salt makes your heart work harder and traps the fluid in your body for longer. Special Instructions: When you came to the hospital, it was noted that your calcium levels were elevated. Your parathyroid hormone levels were also elevated at 92.3. It is recommended that you follow-up outpatient with frog shaker and your general surgeon, Dr. Wilson, for further evaluation/testing after discharge. Thank you for allowing us to participate in your care, it was truly a pleasure having you for our patient!!! No lifting over 10 pounds You may shower. No soaking or tub baths for 2 weeks Very light activity until you are reevaluated at your follow up appointment with your surgeon Do not resume Xarelto until 07/29/2023 Discharge Disposition: HOME SELF-CARE
--- NOTE | 2023-07-27 11:06 | P.PN ---
Subjective Progress Note Date: 07/27/23 Reason for Consult (text): Surgical clearance, history of CAD and atrial fibrillation History of present illness: History of present illness: This is a 72-year-old male who follows with a medical office asst in [place]. He has a past medical history of coronary artery disease, permanent atrial fibrillation, hyperlipidemia diabetes mellitus type 2, gastroesophageal reflux disease, chronic cholecystitis. We have been asked to evaluate the patient for surgical clearance with history of coronary artery disease and atrial fibrillation. Patient is tentatively scheduled for cholecystectomy. Patient does have history of having cardiac stent done in 2006 and underwent a stress test approximately 2 months ago. He states his abdominal pain is better at this time. He denies having any chest pain nor shortness of breath. EKG atrial fibrillation with ventricular rate of 66 bpm. Echocardiogram performed 07/25/2023 reveals normal LV function, mildly dilated right ventricle. Chest x-ray: Cardiomegaly with mild pulmonary vascular congestion. WBC 7.4, hemoglobin 16.9, platelet count 141. BUN 16, creatinine 0.66, potassium 4.4. Calcium 10.6. Lactic acid initially 2.1 with repeat 1.5. Liver function test are normal. Troponin negative x 1. proBNP 224. Lipase 96. Home cardiac medications: Pravastatin 40 mg at bedtime, Xarelto 20 mg daily but has been on hold for planned surgery. Lexiscan stress test performed 11/26/2018 was negative for reversible ischemia. Echocardiogram performed 10/28/2018 revealed EF of 55 to 60%, moderate concentric left ventricular hypertrophy, mild mitral regurgitation, mild tricuspid regurgitation, trace pulmonic regurgitation. 07/25 Patient is scheduled for laparoscopic cholecystectomy today. Patient denies having any chest pain or shortness of breath. Yesterday, patient was started on amlodipine and lisinopril for blood pressure control. Blood pressure is now 136/76-155/93. Heart rate is in the 70s, pulse ox 97% on room air. Repeat blood work reveals hemoglobin of 15.6, WBC 7.3. Electrolytes are normal. Creatinine 0.9. 07/26 Patient denies any concerns this morning. He underwent laparoscopic cholec ystectomy yesterday and has had no postop complications. General surgery has cleared the patient to resume on Xarelto on Sunday. Patient is expecting discharge home today. Blood pressure 107/63, heart rate 89, pulse ox 97% on room air. Physical examination: Gen: This is a 72-year-old male in no acute distress VS: reviewed HEENT: Head is atraumatic, normocephalic. Pupils equal, round. Sclerae is anicteric. LUNGS: Clear to auscultation. No wheezes or rhonchi. No intercostal retractions. HEART: Regular rate and rhythm. EXTREMITIES: No pedal edema. No calf tenderness. NEUROLOGICAL: Patient is awake, alert and oriented x3. Assessment: Chronic cholecystitis Lactic acidosis Uncontrolled hypertension History of coronary artery disease Permanent atrial fibrillation Diabetes mellitus type 2 Hypertension Hyperlipidemia Plan: Continue current cardiac medications Resume Xarelto on Sunday as advised by general surgery Patient is cleared for discharge from cardiology perspective. Nurse practitioner note has been reviewed, I agree with documented findings and plan of care. Patient was seen and examined. Objective - Vital Signs Vital signs: Vital Signs Temp 98.1 F 07/27/23 02:00 Pulse 90 07/27/23 02:00 Resp 16 07/27/23 02:00 BP 121/68 07/27/23 02:00 Pulse Ox 95 07/27/23 02:00 FiO2 Intake & Output 07/26/23 07/27/23 07/27/23 18:59 06:59 18:59 Intake Total 700 Output Total 405 Balance 295 Weight 107.955 kg Intake: IV 700 Output: Urine 400 Estimated Blood Loss 5 Other: Voiding Method Toilet Urinal # Voids 1 - Labs CBC & Chem 7: 07/26/23 05:49 07/26/23 05:49 Labs: Abnormal Lab Results - Last 24 Hours (Table) 07/26/23 07/26/23 07/26/23 Range/Units 05:49 05:49 05:49 RBC 5.73 H (4.40-5.60) X 10*6/uL Hct 51.0 H (39.6-50.0) % MCHC 30.6 L (32.0-37.0) g/dL RDW 16.8 H (11.5-14.5) % BUN/Creatinine Ratio (12.00-20.00) Ratio Glucose (70-110) mg/dL POC Glucose (mg/dL) (70-110) mg/dL Hemoglobin A1c 6.5 H (<=6.0) % PTH Intact 92.3 H (14.0-72.0) pg/mL 07/26/23 07/26/23 07/27/23 Range/Units 05:49 18:45 05:57 RBC (4.40-5.60) X 10*6/uL Hct (39.6-50.0) % MCHC (32.0-37.0) g/dL RDW (11.5-14.5) % BUN/Creatinine Ratio 11.11 L (12.00-20.00) Ratio Glucose 113 H (70-110) mg/dL POC Glucose (mg/dL) 116 H 113 H (70-110) mg/dL Hemoglobin A1c (<=6.0) % PTH Intact (14.0-72.0) pg/mL
--- NOTE | 2023-07-27 12:38 | P.PN ---
Subjective Progress Note Date: 07/27/23 Hospital course: Patient is a very pleasant 72-year-old male with a past medical history of CAD status post stenting, chronic diastolic heart failure, atrial fibrillation, hypertension, hyperlipidemia, type II insulin-dependent diabetes melitis, and known chronic cholecystitis. He presented to the emergency department on 07/24/2023 with a chief complaint of abdominal pain. Patient was awaiting outpatient cardiac clearance to undergo scheduled outpatient cholecystectomy, however he reports abdominal pain worsening and he called his surgeon and was instructed to come to the emergency department. He underwent full evaluation in the emergency department. Upon arrival vital signs as follows, blood pressure 184/73, heart rate 71, respiratory rate 18, temp 97.8 F, and SpO2 of 98% on room air. EKG completed showing atrial fibrillation with a controlled ventricular rate of 66 bpm and a right bundle branch block. Chest x-ray completed showing cardiomegaly and mild pulmonary vascular congestion. Labs completed and reviewed. CBC showing thrombocytopenia with platelet count of 141. BMP showing hyperchloremia with chloride of 108 and otherwise normal findings. Calcium was elevated at 10.6. Lactate slightly elevated at 2.1. Tro ponin less than 0.012. Lipase 96. He was admitted under the general surgery team for intractable abdominal pain with known chronic cholecystitis. We were consulted for medical management and cardiology was consulted for cardiac clearance for patient to undergo planned laparoscopic cholecystectomy .Echocardiogram was completed showing preserved EF of 60 to 65% with mildly dilated right ventricle otherwise no significant valvular or structural abnormalities reported. Repeat EKG completed 07/25/2023 showing atrial fibrillation with a controlled ventricular rate of 67 bpm with a right bundle branch block . Physical exam: Patient was seen and fully evaluated at bedside this morning. He is postoperative day 1 and appears to be doing well. Patient eating breakfast at this time and tolerating without any reports of nausea or vomiting. Patient reports postsurgical pain is controlled and states he is feeling great and ready to go home. Patient cleared from medical perspective for discharge, recommend outpatient follow-up with ceramic products sales engineer/general surgery for further evaluation and monitoring of patient's hypercalcemia which was noted upon admission. Instructions placed in discharge. Vital signs reviewed and stable. General: Nontoxic, no distress and appears stated age. Derm: Skin warm and dry, normal coloration for ethnicity. Head: Atraumatic, normocephalic and symmetric. Eyes: EOMs intact, no lid lag, and anicteric sclera Mouth: no lip lesions, mucus membranes moist Cardiovascular: irregularly irregular, no murmur, positive posterior tibial pulses bilaterally, and cap refill < 2 seconds. Lungs: Respirations even, regular, and unlabored. Lungs diminished, no rhonchi, no rales, no wheezing, and no accessory muscle usage. Abdominal: soft, nontender to palpation, no guarding, no appreciable organom egaly Ext: ROM intact. No gross muscle atrophy, no edema, no contractures Neuro: Speech clear, face symmetrical and CN II-XII grossly intact with no noted focal neuro deficits Psych: Alert and oriented to person, place, time, and situation. Appropriate and pleasant affect. Assessment and Plan of Care: Intractable abdominal pain with chronic cholecystitis -Management per primary admitting general surgery team, patient status post laparoscopic cholecystectomy 07/26/2023.. -Symptomatic care and pain management. Hypercalcemia, resolved after IV fluid hydration. -PTH elevated at 92.3. Recommend outpatient follow-up with ceramic products sales engineer and general surgery after discharge for further testing and/or management if indicated. Lactic acidosis, resolved with IV fluid hydration. CAD status post stenting Chronic diastolic heart failure Chronic Atrial fibrillation Hypertension Hyperlipidemia -Echocardiogram was completed and report reviewed showing preserved EF of 60 to 65% with mildly dilated right ventricle otherwise no significant valvular or structural abnormalities reported. -Continue daily medication regimen with amlodipine 10 mg daily, lisinopril 10 mg daily, and pravastatin 40 mg nightly. -Per general surgery recommendations, Xarelto to be resumed on 07/29/2023 Type 2 insulin-dependent diabetes mellitus, hemoglobin A1c 6.5% -Hold Jardiance and glipizide. Patient placed on glycemic protocol with NovoLog sliding scale. Data and imaging reviewed: -Vital signs reviewed. Blood pressure 107/63, heart rate 89, respiratory rate 18, temp 97.4 F, and SpO2 of 97% on room air. Patient cleared from medical perspective for discharge once cleared by primary admitting general surgery team, discussed with general surgery PA who plans to discharge shortly. Thank you for allowing us to participate in the care of this pleasant patient. Do not hesitate to contact us with questions. Someone can be reached from the [facility] hospitalist group all hours of the day at [phone] or via perfect serve. Patient was seen independently by Nurse Pracitioner. This document was prepared using m[employer] dictation software. Please allow for errors in air transport professionals, while rare they do occur. I reviewed the documentation as provided by the REGAN above, who is the original a uthor of this note. I agree with the documented assessment and plan, with the following changes: none Objective - Vital Signs Vital signs: Vital Signs Temp 98.1 F 07/27/23 02:00 Pulse 90 07/27/23 02:00 Resp 16 07/27/23 02:00 BP 121/68 07/27/23 02:00 Pulse Ox 95 07/27/23 02:00 FiO2 Intake & Output 07/26/23 07/27/23 07/27/23 18:59 06:59 18:59 Intake Total 700 Output Total 405 Balance 295 Weight 107.955 kg Intake: IV 700 Output: Urine 400 Estimated Blood Loss 5 Other: Voiding Method Toilet Urinal # Voids 1 - Labs CBC & Chem 7: 07/26/23 05:49 07/26/23 05:49 Labs: Abnormal Lab Results - Last 24 Hours (Table) 07/26/23 07/26/23 07/26/23 Range/Units 05:49 05:49 18:45 BUN/Creatinine Ratio 11.11 L (12.00-20.00) Ratio Glucose 113 H (70-110) mg/dL POC Glucose (mg/dL) 116 H (70-110) mg/dL PTH Intact 92.3 H (14.0-72.0) pg/mL 07/27/23 Range/Units 05:57 BUN/Creatinine Ratio (12.00-20.00) Ratio Glucose (70-110) mg/dL POC Glucose (mg/dL) 113 H (70-110) mg/dL PTH Intact (14.0-72.0) pg/mL
== END 2023-07-27 12:56 | disposition home or self-care (01) ==
LOC: EC 17:09 → 6NMEDSUR 18:46
PROVIDERS: ADMIT Surgery; ATTEND Surgery
DX: K81.1 Chronic cholecystitis (principal); R00.1 Bradycardia, unspecified; I48.91 Unspecified atrial fibrillation; I25.10 Atherosclerotic heart disease of native coronary artery without angina pectoris; I11.0 Hypertensive heart disease with heart failure; I50.9 Heart failure, unspecified; E11.9 Type 2 diabetes mellitus without complications; K21.9 Gastro-esophageal reflux disease without esophagitis; E78.5 Hyperlipidemia, unspecified; I25.2 Old myocardial infarction; G47.33 Obstructive sleep apnea (adult) (pediatric); E03.9 Hypothyroidism, unspecified; Z85.828 Personal history of other malignant neoplasm of skin; Z79.01 Long term (current) use of anticoagulants; Z99.89 Dependence on other enabling machines and devices; Z85.038 Personal history of other malignant neoplasm of large intestine; Z95.0 Presence of cardiac pacemaker; Z92.21 Personal history of antineoplastic chemotherapy; Z95.5 Presence of coronary angioplasty implant and graft; Z79.899 Other long term (current) drug therapy; Z79.84 Long term (current) use of oral hypoglycemic drugs; Z79.4 Long term (current) use of insulin; Z88.2 Allergy status to sulfonamides; Z88.8 Allergy status to other drugs, medicaments and biological substances; Z88.5 Allergy status to narcotic agent; Z87.891 Personal history of nicotine dependence
CPT/HCPCS: 47562; 96361; 96365; 96366 ×3; 96372; 96375; 99285; 36415; 93005; 93306; 88304; 83880; 80053 ×3; 82150; 83605; 83690; 83735; 84484; 85025; 85027; 83970; 83036; 71046; G0378 ×4; J0330; J0360; J1644; J2405 ×2; J0690; J2001; J1650; J3010; Q9957; J1170 ×4; J2704; J2371; J0665

== ENCOUNTER 2023-08-06 16:38 | Emergency (ER) | payer OTHER, MEDICARE ==
[2023-08-06 17:24] VITALS: PULSE 74; TEMP 97.8
--- NOTE | 2023-08-06 18:23 | ED ---
Anxiety HPI - General Chief Complaint: Anxiety Stated Complaint: Mental Health Time Seen by Provider: 08/06/23 17:09 Source: patient, family, RN notes reviewed, old records reviewed, Caregiver Mode of arrival: ambulatory Limitations: no limitations - History of Present Illness Initial Comments: This is a 72-year-old male to ER for evaluation of multiple complaints. Patient recently started on new medication for pain causing him significant palpitations lightheadedness dizziness body aches body pains and severe anxiety. Patient has been unable to sleep with symptoms getting worse for a few weeks now. Progressing to worsening symptoms today with agitation and restlessness. MD Complaint: anxiety, heart racing, shortness of breath -: week(s) Symptoms: dyspnea, palpitations Place: home Previous History of Same: Yes Severity: moderate Quality: worsening Provoking factors: emotional stress, medication change Improves With: nothing Worsens With: medication Associated symptoms: shortness of breath, palpitations, malaise, nausea/vomiting - Related Data Home Medications: Home Medications Medication Instructions Recorded Confirmed Potassium Chloride [Klor-Con 20] 20 meq PO DAILY 01/15/14 08/06/23 Pravastatin Sodium [Pravachol] 40 mg PO HS 01/15/14 08/06/23 allopurinoL [Zyloprim] 100 mg PO HS 07/28/15 08/06/23 Sertraline HCl [Zoloft] 200 mg PO DAILY 11/05/15 08/06/23 Rivaroxaban [Xarelto] 20 mg PO HS 07/27/17 08/06/23 Empagliflozin [Jardiance] 25 mg PO DAILY 06/10/21 08/06/23 Famotidine 20 mg PO DAILY 06/10/21 08/06/23 Insulin Glargine,Hum.rec.anlog 1 - 20 unit SQ DAILY PRN 06/10/21 08/06/23 [Lantus Solostar Pen] Pantoprazole [Protonix] 40 mg PO BID 06/10/21 08/06/23 glipiZIDE [Glucotrol] 20 mg PO AC-BID 08/14/22 08/06/23 Mirtazapine [Remeron] 22.5 mg PO HS 07/23/23 08/06/23 Temazepam 7.5 mg PO HS 07/24/23 08/06/23 Temazepam [Restoril] 15 mg PO HS 07/24/23 08/06/23 hydrOXYzine HCL [Atarax] 10 mg PO QID PRN 08/06/23 08/07/23 Previous Rx's Medication Instructions Recorded Acetaminophen Tab [Tylenol] 1,000 mg PO Q6HR PRN #30 tablet 07/27/23 amLODIPine [Norvasc] 10 mg PO DAILY 90 Days #90 tab 07/27/23 lisinopriL [Zestril] 10 mg PO DAILY 90 Days #90 tab 07/27/23 LORazepam [Ativan] 2 mg PO TID 3 Days #9 tab 08/06/23 Allergies/Adverse Reactions: Allergies Allergy/AdvReac Type Severity Reaction Status Date / Time clopidogrel bisulfate Allergy Rash/Hives Verified 08/06/23 18:07 [From Plavix] Sulfa (Sulfonamide Allergy Rash/Hives Verified 08/06/23 18:07 Antibiotics) gabapentin AdvReac Aggression, Verified 08/06/23 18:07 anxiety, mood swings metformin AdvReac Diarrhea Verified 08/06/23 18:07 morphine AdvReac Hallucinati Verified 08/06/23 18:07 ons pregabalin [From Lyrica] AdvReac Aggression, Verified 08/06/23 18:07 anxiety, mood swings Review of Systems ROS Statement: Those systems with pertinent positive or pertinent negative responses have been documented in the HPI. ROS Other: All systems not noted in ROS Statement are negative. Past Medical History Past Medical History: Atrial Fibrillation, Coronary Artery Disease (CAD), Cancer, Heart Failure, Diabetes Mellitus, GERD/Reflux, Hyperlipidemia, Hypertension, Myocardial Infarction ([place]), Sleep Apnea/CPAP/BIPAP, Thyroid Disorder Additional Past Medical History / Comment(s): gout, skin ca, colon cancer with resection and chemo (2017)., c-pap machine., ulcer on side of right great toe- receives wound tx ., BPH., gall bladder pain. Last Myocardial Infarction Date:: 2006 History of Any Multi-Drug Resistant Organisms: None Reported Past Surgical History: Appendectomy, Bowel Resection, Heart Catheterization With Stent, Orthopedic Surgery Additional Past Surgical History / Comment(s): skin ca removed, lt shoulder surgery ,rt knee surgery, deviated septum surgery Past Anesthesia/Blood Transfusion Reactions: No Reported Reaction Date of Last Stent Placement:: 2006 Past Psychological History: Anxiety, Bipolar, Depression Smoking Status: Former smoker Past Alcohol Use History: Rare Past Drug Use History: None Reported - Past Family History Father Family Medical History: Asthma, Hyperlipidemia Additional Family Medical History / Comment(s): at age 61. was a heavy smoker,prostate sx a week before he not sure what took him. Mother Family Medical History: Dementia Additional Family Medical History / Comment(s): at age 75 from alzheimers General Exam Limitations: no limitations General appearance: alert, in no apparent distress, anxious Head exam: Present: atraumatic, normocephalic, normal inspection Eye exam: Present: normal appearance, PERRL, EOMI. Absent: scleral icterus, conjunctival injection, periorbital swelling ENT exam: Present: normal exam, mucous membranes moist Neck exam: Present: normal inspection. Absent: tenderness, meningismus, lymphadenopathy Respiratory exam: Present: normal lung sounds bilaterally. Absent: respiratory distress, wheezes, rales, rhonchi, stridor Cardiovascular Exam: Present: regular rate, normal rhythm, normal heart sounds. Absent: systolic murmur, diastolic murmur, rubs, gallop, clicks GI/Abdominal exam: Present: soft, normal bowel sounds. Absent: distended, tenderness, guarding, rebound, rigid Extremities exam: Present: normal inspection, full ROM, normal capillary refill. Absent: tenderness, pedal edema, joint swelling, calf tenderness Back exam: Present: normal inspection Neurological exam: Present: alert, oriented X3, CN II-XII intact Psychiatric exam: Present: normal affect, normal mood Skin exam: Present: warm, dry, intact, normal color. Absent: rash Course Vital Signs 08/06/23 08/06/23 16:51 20:31 Temperature 97.8 F Pulse Rate 74 Respiratory 20 19 Rate Blood Pressure 156/80 139/94 O2 Sat by Pulse 99 Oximetry - Reevaluation(s) Reevaluation #1: Medical records reviewed Reevaluation #2: Patient symptoms improved Reevaluation #3: Patient informed of results questions answered Reevaluation #4: Was pt. sent in by a medical professional or institution (, PA, [facility], urgent care, hospital, or fci...) When possible be specific @ -no Did you speak to anyone other than the patient for history (EMS, parent, family, police, friend...)? What history was obtained from this source @ -no Did you review nursing and triage notes (agree or disagree)? Why? @ -agree Are old charts reviewed (outside hosp., previous admission, EMS record, old EKG, old radiological studies, urgent care reports/EKG's, fci records)? Report findings @ -yes Differential Diagnosis (chest pain, altered mental status, abdominal pain women, abdominal pain men, vaginal bleeding, weakness, fever, dyspnea, syncope, headache, dizziness, GI bleed, back pain, seizure, CVA, palpatations, mental health, musculoskeletal)? @ -prior EKG interpreted by me (3pts min.). @ -yes X-rays interpreted by me (1pt min.). @ -yes negative for acute disease CT interpreted by me (1pt min.). @ -no U/S interpreted by me (1pt. min.). @ -no What testing was considered but not performed or refused? (CT, X-rays, U/S, labs)? Why? @ -none What meds were considered but not given or refused? Why? @ -none Did you discuss the management of the patient with other professionals (professionals i.e. , PA, [facility], lab, RT, psych nurse, medical social consultant, wool dyer, teacher, customer service security officer, rn case mgr)? Give summary @ -no Was smoking cessation discussed for >3mins.? @ -no Was critical care preformed (if so, how long)? @ -no Were there social determinants of health that impacted care today? How? (Homelessness, low income, unemployed, alcoholism, drug addiction, transportation, low edu. Level, literacy, decrease access to med. care, nursing home, rehab)? @ -none Was there de-escalation of care discussed even if they declined (Discuss DNR or withdrawal of care, Hospice)? DNR status @ -no What co-morbidities impacted this encounter? (DM, HTN, Smoking, COPD, CAD, Cancer, CVA, ARF, Chemo, Hep., AIDS, mental health diagnosis, sleep apnea, morbid obesity)? @ -none Was patient admitted / discharged? Hospital course, mention meds given and route, prescriptions, significant lab abnormalities, going to OR and other pertinent info. @ - 72 male to ER for severe anxiety symptoms. Symptoms are resolved here with anxiolysis here in the ER he feels well, informed of normal testing and patient feels good for discharge home Discharge Undiagnosed new problem with uncertain prognosis? @ -no Drug Therapy requiring intensive monitoring for toxicity (Heparin, Nitro, Insulin, Cardizem)? @ -no Were any procedures done? @ -no Diagnosis/symptom? @ -Anxiety and palpitations Acute, or Chronic, or Acute on Chronic? @ -Acute Uncomplicated (without systemic symptoms) or Complicated (systemic symptoms)? @ -Complicated Side effects of treatment? @ -no Exacerbation, Progression, or Severe Exacerbation? @ -exacerbation Poses a threat to life or bodily function? How? (Chest pain, [place], [place], pneumonia, PE, COPD, DKA, ARF, appy, cholecystitis, CVA, Diverticulitis, Homicidal, Suicidal, threat to staff... and all critical care pts) @ -yes with significant extremes of age Reevaluation #5: Differential Palpitations Ventricular arrhythmias, atrial arrhythmias, myocardial infarction, anemia, thyrotoxicosis, electrolyte imbalance, hypokalemia, pulmonary embolism, pulmonary disease, drugs, alcohol, anxiety, stress.... This is not meant to be an all-inclusive list. Medical Decision Making - Medical Decision Making 72 male to ER for severe anxiety symptoms. Symptoms are resolved here with anxiolysis here in the ER he feels well, informed of normal testing and patient feels good for discharge home - Lab Data Result diagrams: 08/06/23 18:03 08/06/23 18:50 Lab Results 08/06/23 08/06/23 08/06/23 Range/Units 18:03 18:03 18:03 WBC 6.9 (3.8-10.6) k/uL RBC 6.39 H (4.30-5.90) m/uL Hgb 17.8 H (13.0-17.5) gm/dL Hct 56.2 H (39.0-53.0) % MCV 88.0 (80.0-100.0) fL MCH 27.8 (25.0-35.0) pg MCHC 31.6 (31.0-37.0) g/dL RDW 16.7 H (11.5-15.5) % Plt Count 156 (150-450) k/uL MPV 7.9 Neutrophils % 69 % Lymphocytes % 23 % Monocytes % 4 % Eosinophils % 2 % Basophils % 1 % Neutrophils # 4.7 (1.3-7.7) k/uL Lymphocytes # 1.6 (1.0-4.8) k/uL Monocytes # 0.3 (0-1.0) k/uL Eosinophils # 0.1 (0-0.7) k/uL Basophils # 0.1 (0-0.2) k/uL Anisocytosis Slight PT 11.0 (10.0-12.5) sec INR 1.0 (<1.2) APTT 26.6 (22.0-30.0) sec D-Dimer 0.56 (<0.60) mg/L FEU Sodium (137-145) mmol/L Potassium (3.5-5.1) mmol/L Chloride (98-107) mmol/L Carbon Dioxide (22-30) mmol/L Anion Gap mmol/L BUN (9-20) mg/dL Creatinine (0.66-1.25) mg/dL Est GFR (CKD-EPI)AfAm (>60 ml/min/1.73 sqM) Est GFR (CKD-EPI)NonAf (>60 ml/min/1.73 sqM) Glucose (74-99) mg/dL Lactic Ac Sepsis Rflx Plasma Lactic Acid Iván 3.2 H* (0.7-2.0) mmol/L Calcium (8.4-10.2) mg/dL Phosphorus (2.5-4.5) mg/dL Magnesium (1.6-2.3) mg/dL Total Bilirubin (0.2-1.3) mg/dL AST (17-59) U/L ALT (4-49) U/L Alkaline Phosphatase (38-126) U/L Troponin I (0.000-0.034) ng/mL NT-Pro-B Natriuret Pep pg/mL Total Protein (6.3-8.2) g/dL Albumin (3.5-5.0) g/dL TSH (0.465-4.680) mIU/L 08/06/23 08/06/23 08/06/23 Range/Units 18:03 18:50 18:57 WBC (3.8-10.6) k/uL RBC (4.30-5.90) m/uL Hgb (13.0-17.5) gm/dL Hct (39.0-53.0) % MCV (80.0-100.0) fL MCH (25.0-35.0) pg MCHC (31.0-37.0) g/dL RDW (11.5-15.5) % Plt Count (150-450) k/uL MPV Neutrophils % % Lymphocytes % % Monocytes % % Eosinophils % % Basophils % % Neutrophils # (1.3-7.7) k/uL Lymphocytes # (1.0-4.8) k/uL Monocytes # (0-1.0) k/uL Eosinophils # (0-0.7) k/uL Basophils # (0-0.2) k/uL Anisocytosis PT (10.0-12.5) sec INR (<1.2) APTT (22.0-30.0) sec D-Dimer (<0.60) mg/L FEU Sodium 139 (137-145) mmol/L Potassium 4.3 (3.5-5.1) mmol/L Chloride 108 H (98-107) mmol/L Carbon Dioxide 19 L (22-30) mmol/L Anion Gap 12 mmol/L BUN 20 (9-20) mg/dL Creatinine 0.73 (0.66-1.25) mg/dL Est GFR (CKD-EPI)AfAm >90 (>60 ml/min/1.73 sqM) Est GFR (CKD-EPI)NonAf >90 (>60 ml/min/1.73 sqM) Glucose 155 H (74-99) mg/dL Lactic Ac Sepsis Rflx Y Plasma Lactic Acid Iván (0.7-2.0) mmol/L Calcium 10.6 H (8.4-10.2) mg/dL Phosphorus 3.5 (2.5-4.5) mg/dL Magnesium 2.1 (1.6-2.3) mg/dL Total Bilirubin 0.6 (0.2-1.3) mg/dL AST 33 (17-59) U/L ALT 28 (4-49) U/L Alkaline Phosphatase 121 (38-126) U/L Troponin I <0.012 (0.000-0.034) ng/mL NT-Pro-B Natriuret Pep 53 pg/mL Total Protein 7.6 (6.3-8.2) g/dL Albumin 4.6 (3.5-5.0) g/dL TSH 0.207 L (0.465-4.680) mIU/L - EKG Data -: EKG Interpreted by Me (EKG is atrial fibrillation 94 QRS 109 QTc 424) - Radiology Data Radiology results: report reviewed (Chest x-ray is negative for acute disease), image reviewed Disposition Clinical Impression: Acute anxiety, Panic attack, Palpitations Disposition: HOME SELF-CARE Condition: Fair Instructions (If sedation given, give patient instructions): Generalized Anxiety Disorder (ED) Prescriptions: LORazepam [Ativan] 2 mg PO TID 3 Days #9 tab Is patient prescribed a controlled substance at d/c from ED?: No Referrals: [facility] [Primary Care Provider] - 1-2 days Time of Disposition: 20:00
[2023-08-06 18:34] LABS: Anisocytosis Slight; Basophils # (A) 0.1 k/uL (0-0.2); Basophils % (A) 1 %; Eosinophils # (A) 0.1 k/uL (0-0.7); Eosinophils % (A) 2 %; HGB 17.8 gm/dL (13.0-17.5); Lymphocytes # (A) 1.6 k/uL (1.0-4.8); Lymphocytes % (A) 23 %; MCH 27.8 pg (25.0-35.0); MCHC 31.6 g/dL (31.0-37.0); Mean Platelet Volume 7.9; Monocytes # (A) 0.3 k/uL (0-1.0); Monocytes % (A) 4 %; Neutrophils # (A) 4.7 k/uL (1.3-7.7); Neutrophils % (A) 69 %; Platelet Count 156 k/uL (150-450); RBC 6.39 m/uL (4.30-5.90); RDW 16.7 % (11.5-15.5); WBC 6.9 k/uL (3.8-10.6)
[2023-08-06] MEDS: LORazepam 2 MG/ML INJ IV STA (18:47)
--- NOTE | 2023-08-06 18:48 | XR ---
EXAM: XR chest 1V portable CLINICAL INDICATION:Male, 72 years old with history of cp; [facility] COMPARISON: 07/24/2023 TECHNIQUE: Chest single view. FINDINGS: Exam is limited by patient body habitus. Lines/tubes/devices: None. Cardiomediastinum: Cardiac silhouette appears stable, mildly enlarged. Unremarkable mediastinal silhouette. Vasculature: Mild pulmonary vascular congestion, similar in appearance to the prior study Lungs/pleura: No consolidation, sizeable effusion, or visible pneumothorax. Hazy opacity over the mid to lower lung s likely from overlying soft tissue attenuation. Bones/soft tissues: Bony thorax appears grossly intact as seen. Regional soft tissues appear unremarkable. IMPRESSION: 1. No acute abnormality. 2. Mild cardiomegaly and pulmonary vascular congestion, similar to previous.
[2023-08-06] MEDS: ONDANSETRON 4 MG/2 ML VIAL IVP STA (18:49)
[2023-08-06] MEDS: SODIUM CHLORIDE 0.9% 1,000 ML IV STA (18:49)
[2023-08-06 18:55] LABS: HCT 56.2 % (39.0-53.0)
[2023-08-06 18:57] LABS: Partial Thromboplastin Time 26.6 sec (22.0-30.0)
[2023-08-06 19:19] LABS: ALT 28 U/L (4-49); AST 33 U/L (17-59); African American GFR (CKD) >90 (>60 ml/min/1.73 sqM); Albumin 4.6 g/dL (3.5-5.0); Alkaline Phosphatase 121 U/L (38-126); Anion Gap 12 mmol/L; Blood Urea Nitrogen 20 mg/dL (9-20); Calcium 10.6 mg/dL (8.4-10.2); Carbon Dioxide 19 mmol/L (22-30); Chloride 108 mmol/L (98-107); Glucose 155 mg/dL (74-99); Magnesium 2.1 mg/dL (1.6-2.3); Non-African American GFR(CKD) >90 (>60 ml/min/1.73 sqM); Phosphorus 3.5 mg/dL (2.5-4.5); Potassium 4.3 mmol/L (3.5-5.1); Sodium 139 mmol/L (137-145); Total Bilirubin 0.6 mg/dL (0.2-1.3); Total Protein 7.6 g/dL (6.3-8.2)
[2023-08-06 19:26] LABS: NT-Pro-B-Type Natriuretic Pept 53 pg/mL
[2023-08-06] MEDS: LORazepam 1 MG TAB PO STA (20:29)
[2023-08-06 21:03] VITALS: BP 139/94; RESP 19
== END 2023-08-06 20:47 | disposition home or self-care (01) ==
LOC: EC 16:38
DX: F41.9 Anxiety disorder, unspecified (principal); F41.0 Panic disorder [episodic paroxysmal anxiety]; R00.2 Palpitations; I48.91 Unspecified atrial fibrillation; Z87.891 Personal history of nicotine dependence; Z88.6 Allergy status to analgesic agent; Z88.2 Allergy status to sulfonamides; Z88.5 Allergy status to narcotic agent; Z88.8 Allergy status to other drugs, medicaments and biological substances
CPT/HCPCS: 36415; 93005; 85379; 83880; 80053; 83605; 83735; 84100; 84443; 84484; 85025; 85610; 85730; 71045; 99285; 96374; 96361; J2060

== ENCOUNTER 2023-08-11 13:30 | Observation (INO) | payer OTHER, MEDICARE ==
[2023-08-11 14:43] LABS: Anisocytosis Slight; Basophils # (A) 0.1 k/uL (0-0.2); Basophils % (A) 1 %; Eosinophils # (A) 0.2 k/uL (0-0.7); Eosinophils % (A) 2 %; HCT 52.6 % (39.0-53.0); HGB 16.8 gm/dL (13.0-17.5); Lymphocytes # (A) 1.4 k/uL (1.0-4.8); Lymphocytes % (A) 14 %; MCH 28.1 pg (25.0-35.0); MCHC 31.9 g/dL (31.0-37.0); MCV 88.1 fL (80.0-100.0); Mean Platelet Volume 7.9; Monocytes # (A) 0.5 k/uL (0-1.0); Monocytes % (A) 5 %; Neutrophils # (A) 7.7 k/uL (1.3-7.7); Neutrophils % (A) 78 %; Platelet Count 152 k/uL (150-450); RBC 5.97 m/uL (4.30-5.90); RDW 16.7 % (11.5-15.5); WBC 9.9 k/uL (3.8-10.6)
[2023-08-11 14:56] LABS: Partial Thromboplastin Time 29.2 sec (22.0-30.0); Prothrombin Time 11.1 sec (10.0-12.5)
--- NOTE | 2023-08-11 14:56 | ED ---
General Adult HPI - General Chief complaint: Neuro Symptoms/Deficit Stated complaint: mental health DM ulcer R big toe Time Seen by Provider: 08/11/23 14:20 Source: patient, family, RN notes reviewed, old records reviewed Mode of arrival: ambulatory Limitations: no limitations - History of Present Illness Initial comments: Patient is a 72-year-old male who presents emergency department complaining of multiple complaints. Has a history of diabetes. It is so a history of severe anxiety. Has been having issues with worsening anxiety over the last month or so. Was prescribed Ativan and states that when he takes this medication he feels lightheaded as well as has noticed for the last 2 or 3 weeks that he gets intermittent right-sided facial paresthesias. Currently does not have these. Also has a right greater toe chronic ulcer that seems worse and there is concern for possible infection at this time. This has been ongoing for the last 1 to 2 weeks as well. Patient's is with the patient and is requesting that he be seen by EPS at a minimum. I did discuss with them they are also concerned for possible stroke. He denies any chest pain, shortness of breath, abdominal pain, nausea, vomiting. Denies any headaches or blurry vision. Has no other acute complaints at this time. Presents for further evaluation at this time.Denies any suicidal or homicidal ideations, times complaints. Denies any visual or auditory hallucinations.Patient was started on ciprofloxacin a few days ago for his right big toe however family is concerned that it is looking worse at this time. - Related Data Home Medications Medication Instructions Recorded Confirmed Potassium Chloride [Klor-Con 20] 20 meq PO DAILY 01/15/14 08/06/23 Pravastatin Sodium [Pravachol] 40 mg PO HS 01/15/14 08/06/23 allopurinoL [Zyloprim] 100 mg PO HS 07/28/15 08/06/23 Sertraline HCl [Zoloft] 200 mg PO DAILY 11/05/15 08/06/23 Rivaroxaban [Xarelto] 20 mg PO HS 07/27/17 08/06/23 Empagliflozin [Jardiance] 25 mg PO DAILY 06/10/21 08/06/23 Famotidine 20 mg PO DAILY 06/10/21 08/06/23 Insulin Glargine,Hum.rec.anlog 1 - 20 unit SQ DAILY PRN 06/10/21 08/06/23 [Lantus Solostar Pen] Pantoprazole [Protonix] 40 mg PO BID 06/10/21 08/06/23 glipiZIDE [Glucotrol] 20 mg PO AC-BID 08/14/22 08/06/23 Mirtazapine [Remeron] 22.5 mg PO HS 07/23/23 08/06/23 Temazepam 7.5 mg PO HS 07/24/23 08/06/23 Temazepam [Restoril] 15 mg PO HS 07/24/23 08/06/23 hydrOXYzine HCL [Atarax] 10 mg PO QID PRN 08/06/23 08/07/23 Previous Rx's Medication Instructions Recorded Acetaminophen Tab [Tylenol] 1,000 mg PO Q6HR PRN #30 tablet 07/27/23 amLODIPine [Norvasc] 10 mg PO DAILY 90 Days #90 tab 07/27/23 lisinopriL [Zestril] 10 mg PO DAILY 90 Days #90 tab 07/27/23 LORazepam [Ativan] 2 mg PO TID 3 Days #9 tab 08/06/23 Allergies Allergy/AdvReac Type Severity Reaction Status Date / Time clopidogrel bisulfate Allergy Rash/Hives Verified 08/11/23 14:00 [From Plavix] Sulfa (Sulfonamide Allergy Rash/Hives Verified 08/11/23 14:00 Antibiotics) gabapentin AdvReac Aggression, Verified 08/11/23 14:00 anxiety, mood swings metformin AdvReac Diarrhea Verified 08/11/23 14:00 morphine AdvReac Hallucinati Verified 08/11/23 14:00 ons pregabalin [From Lyrica] AdvReac Aggression, Verified 08/11/23 14:00 anxiety, mood swings Review of Systems ROS Statement: Those systems with pertinent positive or pertinent negative responses have been documented in the HPI. Review of Systems: CONST: Denies fever EYES: Denies blurry vision ENT: Denies nasal congestion C/V: Denies Chest pain RESP: Denies shortness of breath GI: Denies abdominal pain : Denies dysuria SKIN: Endorses right greater toe ulcer MSK: Denies joint pain. NEURO: Denies headache ROS Other: All systems not noted in ROS Statement are negative. Past Medical History Past Medical History: Atrial Fibrillation, Coronary Artery Disease (CAD), Cancer, Heart Failure, Diabetes Mellitus, GERD/Reflux, Hyperlipidemia, Hypertension, Myocardial Infarction ([place]), Sleep Apnea/CPAP/BIPAP, Thyroid Disorder Additional Past Medical History / Comment(s): gout, skin ca, colon cancer with resection and chemo (2017)., c-pap machine., ulcer on side of right great toe- receives wound tx ., BPH., gall bladder pain. Last Myocardial Infarction Date:: 2006 History of Any Multi-Drug Resistant Organisms: None Reported Past Surgical History: Appendectomy, Bowel Resection, Cholecystectomy, Heart Catheterization With Stent, Orthopedic Surgery Additional Past Surgical History / Comment(s): skin ca removed, lt shoulder surgery ,rt knee surgery, deviated septum surgery Past Anesthesia/Blood Transfusion Reactions: No Reported Reaction Date of Last Stent Placement:: 2006 Past Psychological History: Anxiety, Bipolar, Depression Smoking Status: Former smoker Past Alcohol Use History: Rare Past Drug Use History: None Reported - Past Family History Father Family Medical History: Asthma, Hyperlipidemia Additional Family Medical History / Comment(s): at age 61. was a heavy smoker,prostate sx a week before he not sure what took him. Mother Family Medical History: Dementia Additional Family Medical History / Comment(s): at age 75 from alzheimers General Exam - General Exam Comments Initial Comments: General: Appears in no acute distress. HEAD: Normal with no signs of head trauma. EYES: PERRLA, EOMI, conjunctiva normal, no discharge. Pupils are 3 mm and equal bilaterally. ENT: Hearing grossly intact, normal oropharynx. RESPIRATORY: Clear breath sounds bilaterally. No wheezes, rales, or rhonchi. C/V: Regular rate and rhythm. S1 and S2 auscultated, no edema, peripheral pulses 2+ and intact throughout ABD: Abd is soft, nontender, nondistended EXT: Normal range of motion, no obvious deformity SKIN: Patient has an open chronic wound to the right greater toe on the medial plantar aspect. No obvious discharge. Erythema present, mild bloody discharge. No obvious fluctuance present. Per family, wound looks worse than a few days ago when he was started on ciprofloxacin. NEURO: Alert and oriented x 4. Cranial nerves II-XII intact. No focal sensory or strength deficits. GCS of 15. NIH is 0. Limitations: no limitations Course Vital Signs 08/11/23 08/11/23 13:50 14:36 Temperature 97.6 F Pulse Rate 65 87 Respiratory 18 20 Rate Blood Pressure 135/69 127/80 O2 Sat by Pulse 93 L 97 Oximetry Medical Decision Making - Medical Decision Making Was pt. sent in by a medical professional or institution (, NERY, AIR CONTROL/ANTI AIR WARFARE OFFICER, urgent care, hospital, or [facility]...) When possible be specific @ -No Did you speak to anyone other than the patient for history (EMS, parent, family, police, friend...)? What history was obtained from this source @ -I spoke with patient's who assist with patient's past medical history. Did you review nursing and triage notes (agree or disagree)? Why? @ -I reviewed and agree with nursing and triage notes Were old charts reviewed (outside hosp., previous admission, EMS record, old EKG, old radiological studies, urgent care reports/EKG's, [facility] records)? Report findings @ -Old charts reviewed Differential Diagnosis (chest pain, altered mental status, abdominal pain women, abdominal pain men, vaginal bleeding, weakness, fever, dyspnea, syncope, headache, dizziness, GI bleed, back pain, seizure, CVA, palpatations, mental health, musculoskeletal)? @ -Cellulitis, abscess, toe infection, osteomyelitis, anxiety, this list is not all inclusive. EKG interpreted by me (3pts min.). @ -As above X-rays interpreted by me (1pt min.). @ -Right foot x-ray shows no evidence of osteomyelitis. CT interpreted by me (1pt min.). @ -CT brain shows no obvious acute intracranial process. U/S interpreted by me (1pt. min.). @ -None done What testing was considered but not performed or refused? (CT, X-rays, U/S, labs)? Why? @ -None What meds were considered but not given or refused? Why? @ -None Did you discuss the management of the patient with other professionals (professionals i.e. NERY Rojas, AIR CONTROL/ANTI AIR WARFARE OFFICER, lab, RT, psych nurse, social services technician, face painter, teacher, drug abuse resistance education officer, case management social worker)? Give summary @ - I spoke with the admitting physician, Dr. Leos of [facility] who accepted the admission. Was smoking cessation discussed for >3mins.? @ -No Was critical care preformed (if so, how long)? @ -No Were there social determinants of health that impacted care today? How? (Home lessness, low income, unemployed, alcoholism, drug addiction, transportation, low edu. Level, literacy, decrease access to med. care, [facility], rehab)? @ -No Was there de-escalation of care discussed even if they declined (Discuss DNR or withdrawal of care, Hospice)? DNR status @ -No What co-morbidities impacted this encounter? (DM, HTN, Smoking, COPD, CAD, Cancer, CVA, ARF, Chemo, Hep., AIDS, mental health diagnosis, sleep apnea, morbid obesity)? @ -Diabetes, anxiety Was patient admitted / discharged? Hospital course, mention meds given and route, prescriptions, significant lab abnormalities, going to OR and other pertinent info. @ -Based on the patient's presentation and physical exam, presents emergency department complaining of anxiety, as well as worsening right great toe infection. Has a history of diabetic ulcers. Was placed on ciprofloxacin earlier this week for the ulcer however seems to be getting worse. Denies any other acute complaints at this time. Presents for further evaluation at this time. Patient has also had intermittent right-sided facial paresthesias for the last few weeks as well. We will obtain CT brain at the request, as well as imaging of the right toe and basic labs. Family in agreement this plan. Patient in agreement this plan. Vital signs within acceptable limits. Laboratory studies within acceptable limits. Foot x-ray shows no evidence of osteomyelitis. Brain CT shows no evidence of acute intracranial process. On reevaluation, I did discuss with family and patient. Patient will be admitted as they are concerned for worsening findings of his right great toe wound. He has been on ciprofloxacin for multiple days with no worsening f indings. I did not evaluate the toe the other day however based on what the patient's is saying who is reliable, I admit the patient on IV vancomycin and consult infectious disease. We will obtain cultures. Patient in agreement this plan. They are requesting possible psychiatric evaluation on admission however as the patient is not a danger to himself or others, we will defer to the admitting team at this time. Patient's and patient were in agreement this plan. I spoke with the admitting physician, Dr. Leos of [facility] who accepted the admission. Undiagnosed new problem with uncertain prognosis? @ -No Drug Therapy requiring intensive monitoring for toxicity (Heparin, Nitro, Insulin, Cardizem)? @ -No Were any procedures done? @ -No Diagnosis/symptom? @ -Right first toe diabetic foot ulcer with cellulitis Acute, or Chronic, or Acute on Chronic? @ -Acute Uncomplicated (without systemic symptoms) or Complicated (systemic symptoms)? @ -Complicated Side effects of treatment? @ -No Exacerbation, Progression, or Severe Exacerbation? @ -No Poses a threat to life or bodily function? How? (Chest pain, [place], CA, pneumonia, PE, COPD, DKA, ARF, appy, cholecystitis, CVA, Diverticulitis, Homicidal, Suicidal, threat to staff... and all critical care pts) @ -Yes - Lab Data Result diagrams: 08/11/23 14:34 08/11/23 14:34 Lab Results 08/11/23 08/11/23 08/11/23 Range/Units 14:34 14:34 14:34 WBC 9.9 (3.8-10.6) k/uL RBC 5.97 H (4.30-5.90) m/uL Hgb 16.8 (13.0-17.5) gm/dL Hct 52.6 (39.0-53.0) % MCV 88.1 (80.0-100.0) fL MCH 28.1 (25.0-35.0) pg MCHC 31.9 (31.0-37.0) g/dL RDW 16.7 H (11.5-15.5) % Plt Count 152 (150-450) k/uL MPV 7.9 Neutrophils % 78 % Lymphocytes % 14 % Monocytes % 5 % Eosinophils % 2 % Basophils % 1 % Neutrophils # 7.7 (1.3-7.7) k/uL Lymphocytes # 1.4 (1.0-4.8) k/uL Monocytes # 0.5 (0-1.0) k/uL Eosinophils # 0.2 (0-0.7) k/uL Basophils # 0.1 (0-0.2) k/uL Anisocytosis Slight PT 11.1 (10.0-12.5) sec INR 1.0 (<1.2) APTT 29.2 (22.0-30.0) sec Sodium 138 (137-145) mmol/L Potassium 4.5 (3.5-5.1) mmol/L Chloride 106 (98-107) mmol/L Carbon Dioxide 19 L (22-30) mmol/L Anion Gap 13 mmol/L BUN 18 (9-20) mg/dL Creatinine 0.68 (0.66-1.25) mg/dL Est GFR (CKD-EPI)AfAm >90 (>60 ml/min/1.73 sqM) Est GFR (CKD-EPI)NonAf >90 (>60 ml/min/1.73 sqM) Glucose 143 H (74-99) mg/dL Plasma Lactic Acid Iván (0.7-2.0) mmol/L Calcium 10.6 H (8.4-10.2) mg/dL Total Bilirubin 0.6 (0.2-1.3) mg/dL AST 26 (17-59) U/L ALT 24 (4-49) U/L Alkaline Phosphatase 126 (38-126) U/L Total Protein 7.2 (6.3-8.2) g/dL Albumin 4.4 (3.5-5.0) g/dL 08/11/23 Range/Units 14:34 WBC (3.8-10.6) k/uL RBC (4.30-5.90) m/uL Hgb (13.0-17.5) gm/dL Hct (39.0-53.0) % MCV (80.0-100.0) fL MCH (25.0-35.0) pg MCHC (31.0-37.0) g/dL RDW (11.5-15.5) % Plt Count (150-450) k/uL MPV Neutrophils % % Lymphocytes % % Monocytes % % Eosinophils % % Basophils % % Neutrophils # (1.3-7.7) k/uL Lymphocytes # (1.0-4.8) k/uL Monocytes # (0-1.0) k/uL Eosinophils # (0-0.7) k/uL Basophils # (0-0.2) k/uL Anisocytosis PT (10.0-12.5) sec INR (<1.2) APTT (22.0-30.0) sec Sodium (137-145) mmol/L Potassium (3.5-5.1) mmol/L Chloride (98-107) mmol/L Carbon Dioxide (22-30) mmol/L Anion Gap mmol/L BUN (9-20) mg/dL Creatinine (0.66-1.25) mg/dL Est GFR (CKD-EPI)AfAm (>60 ml/min/1.73 sqM) Est GFR (CKD-EPI)NonAf (>60 ml/min/1.73 sqM) Glucose (74-99) mg/dL Plasma Lactic Acid Iván 1.7 (0.7-2.0) mmol/L Calcium (8.4-10.2) mg/dL Total Bilirubin (0.2-1.3) mg/dL AST (17-59) U/L ALT (4-49) U/L Alkaline Phosphatase (38-126) U/L Total Protein (6.3-8.2) g/dL Albumin (3.5-5.0) g/dL - EKG Data -: EKG Interpreted by Me EKG Comments: 12-lead Electrocardiogram Interpretation Note EKG was reviewed and interpreted by myself. 12-lead ECG performed at 1436 is interpreted by me as revealing atrial fibrillation at a rate of 82 beats per minute. Indeterminate axis. QRS duration is 118 ms, QTc is 406 ms.. There were no ST or T wave abnormalities to suggest myocardial ischemia or injury. R wave progression across the precordium was satisfactory. By my interpretation this EKG is non-diagnostic for acute ischemia. Disposition Clinical Impression: Diabetic ulcer of right great toe, Cellulitis Disposition: ADMITTED IP TO THIS HOSP Condition: Stable Referrals: [facility],Clinic [Primary Care Provider] - 1-2 days Time of Disposition: 16:40
[2023-08-11 15:04] LABS: ALT 24 U/L (4-49); AST 26 U/L (17-59); African American GFR (CKD) >90 (>60 ml/min/1.73 sqM); Albumin 4.4 g/dL (3.5-5.0); Alkaline Phosphatase 126 U/L (38-126); Anion Gap 13 mmol/L; Blood Urea Nitrogen 18 mg/dL (9-20); Calcium 10.6 mg/dL (8.4-10.2); Carbon Dioxide 19 mmol/L (22-30); Chloride 106 mmol/L (98-107); Glucose 143 mg/dL (74-99); Non-African American GFR(CKD) >90 (>60 ml/min/1.73 sqM); Potassium 4.5 mmol/L (3.5-5.1); Sodium 138 mmol/L (137-145); Total Bilirubin 0.6 mg/dL (0.2-1.3); Total Protein 7.2 g/dL (6.3-8.2)
--- NOTE | 2023-08-11 16:00 | CT ---
EXAMINATION TYPE: CT brain wo con DATE OF EXAM: 08/11/2023 COMPARISON: 08/14/2022 HISTORY: Weakness and dizziness. CT DLP: 1150.4 mGycm Automated exposure control for dose reduction was used. FINDINGS: [id number] degenerative change. Orbits are symmetric. Low attenuation in the bilateral cerebell um may be artifactual appears to been present on prior exam. Areas of remote ischemia not excluded. Calvarium intact. Craniocervical junction maintained. Partially empty sella turcica. IMPRESSION: DEGENERATIVE CHANGE WITH NO ACUTE HEMORRHAGE OR MASS EFFECT.
--- NOTE | 2023-08-11 16:18 | XR ---
EXAMINATION TYPE: XR foot limited RT DATE OF EXAM: 08/11/2023 COMPARISON: 09/29/2022 HISTORY: Right toe swelling TECHNIQUE: Two views are submitted. FINDINGS: Hallux valgus deformity first digit and severe arthropathy first MTP joint. Soft tissue edema surrou nding the distal margin of the first digit but no evidence of destructive change or cortical erosion. Vascular calcifications noted. Chronic appearing deformity of the head of the second metatarsal unch anged from prior exam. IMPRESSION: 1. Soft tissue edema suggestive of cellulitis with no diagnostic evidence of osteomyelitis. 2. Stable deformity of the head of the second metatarsal suspicious for Freiberg's infarction.
[2023-08-11] MEDS ORDERED: VANCOMYCIN IV PER PHARMACY 1 EACH MISC MISCELLANE PRN (16:22)
[2023-08-11] MEDS ORDERED: NALOXONE 0.4 MG/ML 1 ML VIAL IV PRN (16:39)
[2023-08-11] MEDS ORDERED: ACETAMINOPHEN TAB 325 MG TAB PO PRN (16:39)
[2023-08-11] MEDS ORDERED: hydrOXYzine HCL 25 MG TAB PO PRN (17:03)
--- NOTE | 2023-08-11 17:06 | P.HPIM ---
History of Present Illness H&P Date: 08/11/23 Patient is a 72-year-old male with history of CAD status post stent, chronic diastolic heart failure, A-fib, hypertension, dyslipidemia, type 2 diabetes, chronic cholecystitis with recent cholecystectomy presenting with multiple complaints. He claims that he has been dealing with a lot of anxiety over the last few months, but has been getting better. He was recently started on short-term course of oral Ativan by a telemetry psychiatrist. He is also presenting with worsening right toe swelling. He has been dealing with right great toe ulcer swelling over 1 year. noted that he had some bleeding from the area yesterday. He does have neuropathy. He has been treated outpatient with oral antibiotics about 10 days ago. Denies any chest pain, shortness of breath, abdominal pain, nausea, vomiting, urinary or bowel complaints. Denies any fevers or chills. Denies any travel history of sick contacts. In the ED, temperature was 97.6, pulse 65, respiratory rate 18, blood pressure 135/69, saturating at 93% on room air. WBC 9.9, hemoglobin 16.8, INR 1, bicarb 19, anion gap 13, creatinine 0.68, lactate 1.7, total calcium 10.6. Foot x-ray showed soft tissue edema suggestive of cellulitis, no evidence of osteomyelitis. CT head did not show any acute process. Patient being admitted for cellulitis, failed outpatient therapy. ID consulted. Pertinent positives and negatives as discussed in HPI, a complete review of systems was performed and all other systems are negative. Patient seen and examined at bedside. Vital signs reviewed General: nontoxic, no distress, appears at stated age Derm: warm, dry, right great toe edematous, erythematous, no discharge, or ul ceration Head: atraumatic, normocephalic, symmetric Eyes: EOMI, no lid lag, anicteric sclera, pupils equal round reactive to light ENT: Nose and ears atraumatic Neck: No thyromegaly, supple Mouth: no lip lesion, mucus membranes moist Cardiovascular: S1S2 reg, no murmur, no edema Lungs: clear to auscultation bilateral, no rhonchi, no rales, no wheeze, no accessory muscle use Abdominal: soft, nontender to palpation, no guarding, no appreciable organomegaly Ext: no gross muscle atrophy, muscle strength muscle strength 5 out of 5 in all 4 extremities, no contractures Neuro: CN II-XII grossly intact Psych: Alert, oriented, appropriate affect Assessment/Plan: Active: Right great toe cellulitis, failed outpatient therapy Cultures pending Likely gram-positive infection Okay to continue IV vancomycin, monitor renal function ID consulted Mild anion gap metabolic acidosis Mild hypercalcemia Continue normal saline at 75 cc an hour Repeat CMP tomorrow Type 2 diabetes Hold oral medications, sliding scale insulin, monitor for hypoglycemia Anxiety Continue oral Ativan 1 mg 3 times daily as needed, monitor for sedation Also started on hydroxyzine 25 3 times daily as needed for anxiety Patient should follow-up with outpatient psychiatry He should also follow-up with neurology, does have history of sundowning, possible early dementia Chronic: Hypertension Gout Dyslipidemia Atrial fibrillation Chronic diastolic heart failure CAD status post stents The patient is admitted with an anticipated less than 2 midnight stay as observation status for evaluation of right toe cellulitis. Surrogate decision-maker: CODE STATUS: Full code DVT prophylaxis: Xarelto Anticipated discharge date: Pending clinical course Anticipated discharge place: Pending clinical course A total of 55 minutes was spent on the care of this complex patient more than 50% of the time was spent in counseling and care coordination. Past Medical History Past Medical History: Atrial Fibrillation, Coronary Artery Disease (CAD), Cancer, Heart Failure, Diabetes Mellitus, GERD/Reflux, Hyperlipidemia, Hypertension, Myocardial Infarction ([place]), Sleep Apnea/CPAP/BIPAP, Thyroid Disorder Additional Past Medical History / Comment(s): gout, skin ca, colon cancer with resection and chemo (2017)., c-pap machine., ulcer on side of right great toe- receives wound tx ., BPH., gall bladder pain. Last Myocardial Infarction Date:: 2006 History of Any Multi-Drug Resistant Organisms: None Reported Past Surgical History: Appendectomy, Bowel Resection, Cholecystectomy, Heart Catheterization With Stent, Orthopedic Surgery Additional Past Surgical History / Comment(s): skin ca removed, lt shoulder surgery ,rt knee surgery, deviated septum surgery Past Anesthesia/Blood Transfusion Reactions: No Reported Reaction Date of Last Stent Placement:: 2006 Past Psychological History: Anxiety, Bipolar, Depression Smoking Status: Former smoker Past Alcohol Use History: Rare Past Drug Use History: None Reported - Past Family History Father Family Medical History: Asthma, Hyperlipidemia Additional Family Medical History / Comment(s): at age 61. was a heavy smoker,prostate sx a week before he not sure what took him. Mother Family Medical History: Dementia Additional Family Medical History / Comment(s): at age 75 from alzheimers Medications and Allergies Home Medications Medication Instructions Recorded Confirmed Type Potassium Chloride [Klor-Con 20] 20 meq PO DAILY 01/15/14 08/06/23 History Pravastatin Sodium [Pravachol] 40 mg PO HS 01/15/14 08/06/23 History allopurinoL [Zyloprim] 100 mg PO HS 07/28/15 08/06/23 History Sertraline HCl [Zoloft] 200 mg PO DAILY 11/05/15 08/06/23 History Rivaroxaban [Xarelto] 20 mg PO HS 07/27/17 08/06/23 History Empagliflozin [Jardiance] 25 mg PO DAILY 06/10/21 08/06/23 History Famotidine 20 mg PO DAILY 06/10/21 08/06/23 History Insulin Glargine,Hum.rec.anlog 1 - 20 unit SQ DAILY PRN 06/10/21 08/06/23 History [Lantus Solostar Pen] Pantoprazole [Protonix] 40 mg PO BID 06/10/21 08/06/23 History glipiZIDE [Glucotrol] 20 mg PO AC-BID 08/14/22 08/06/23 History Mirtazapine [Remeron] 22.5 mg PO HS 07/23/23 08/06/23 History Temazepam 7.5 mg PO HS 07/24/23 08/06/23 History Temazepam [Restoril] 15 mg PO HS 07/24/23 08/06/23 History Acetaminophen Tab [Tylenol] 1,000 mg PO Q6HR PRN #30 tablet 07/27/23 08/06/23 Rx amLODIPine [Norvasc] 10 mg PO DAILY 90 Days #90 tab 07/27/23 08/06/23 Rx lisinopriL [Zestril] 10 mg PO DAILY 90 Days #90 tab 07/27/23 08/06/23 Rx LORazepam [Ativan] 2 mg PO TID 3 Days #9 tab 08/06/23 Rx hydrOXYzine HCL [Atarax] 10 mg PO QID PRN 08/06/23 08/07/23 History Allergies Allergy/AdvReac Type Severity Reaction Status Date / Time clopidogrel bisulfate Allergy Rash/Hives Verified 08/11/23 14:00 [From Plavix] Sulfa (Sulfonamide Allergy Rash/Hives Verified 08/11/23 14:00 Antibiotics) gabapentin AdvReac Aggression, Verified 08/11/23 14:00 anxiety, mood swings metformin AdvReac Diarrhea Verified 08/11/23 14:00 morphine AdvReac Hallucinati Verified 08/11/23 14:00 ons pregabalin [From Lyrica] AdvReac Aggression, Verified 08/11/23 14:00 anxiety, mood swings Physical Exam Vitals: Vital Signs Temp Pulse Resp BP Pulse Ox 08/11/23 14:36 87 20 127/80 97 08/11/23 13:50 97.6 F 65 18 135/69 93 L Intake and Output 08/11/23 08/11/23 08/11/23 06:59 14:59 22:59 Other: Weight 153.314 kg Results CBC & Chem 7: 08/11/23 14:34 08/11/23 14:34 Labs: Abnormal Lab Results - Last 24 Hours (Table) 08/11/23 08/11/23 Range/Units 14:34 14:34 RBC 5.97 H (4.30-5.90) m/uL RDW 16.7 H (11.5-15.5) % Carbon Dioxide 19 L (22-30) mmol/L Glucose 143 H (74-99) mg/dL Calcium 10.6 H (8.4-10.2) mg/dL
[2023-08-11] MEDS: LORazepam 1 MG TAB PO STA (17:13)
[2023-08-11] MEDS: SODIUM CHLORIDE 0.9% 1,000 ML IV SCH (17:25)
[2023-08-11] MEDS: VANCOMYCIN 2,500 MG in SODIUM CHLORIDE 0.9% 500 ML 500 ML IVPB STA (17:26)
[2023-08-11] MEDS ORDERED: hydrOXYzine HCL 10 MG TAB PO PRN (19:50)
[2023-08-11 20:32] LABS: Glucose,Whole Blood 136 mg/dL (70-110)
--- NOTE | 2023-08-11 21:28 | US ---
EXAMINATION TYPE: US arterial LE multi level DATE OF EXAM: 08/11/2023 9:05 PM Exam done portable CLINICAL INDICATION: Male, 72 years old with history of toe ulcer, non-healing; Right great toe non h ealing wound History of: Smoker: Never Hypertension: Yes Diabetic: Yes Hyperlipidemia: No TIA/CVA: No Previous Vascular Surgery: Cardiac stent 2006 DC: Yes 2006 Doppler Waveforms: Right: Biphasic Left: Multiphasic Right Brachial Pressure: 146 Left Brachial Pressure: 143 Ankle-Brachial Indices: Right: 1.16 Left: 1.24 (Vessel hardening > 1.4; Normal 0.9 - 1.4, Moderate 0.7 - 0.9, Severe 0.5-0.7) IMPRESSION: No evidence of significant atherosclerotic disease.
[2023-08-11] MEDS ORDERED: LORAZEPAM 2 MG PO SCH (22:00)
[2023-08-11] MEDS: PANTOPRAZOLE 40 MG TABLET PO SCH (22:33)
[2023-08-11] MEDS: RIVAROXABAN 20 MG TAB PO SCH (22:33)
[2023-08-11] MEDS: TEMAZEPAM 15 MG CAP PO SCH (22:33)
[2023-08-11] MEDS: allopurinoL 100 MG TAB PO SCH (22:33)
[2023-08-11] MEDS: MIRTAZAPINE 45 MG TABLET PO SCH (22:33)
[2023-08-11] MEDS: PRAVASTATIN SODIUM 40 MG TAB PO SCH (22:33)
[2023-08-12 06:07] LABS: Glucose,Whole Blood 129 mg/dL (70-110)
[2023-08-12] MEDS: glipiZIDE 10 MG TAB PO SCH (06:30)
[2023-08-12] MEDS: LORazepam 1 MG TAB PO PRN (06:35)
[2023-08-12] MEDS: DAPAGLIFLOZIN PROPANEDIOL 10 MG TABLET PO SCH (09:25)
[2023-08-12] MEDS: SERTRALINE 100 MG TAB PO SCH (09:25)
[2023-08-12] MEDS: lisinopriL 10 MG TAB PO SCH (09:25)
[2023-08-12] MEDS: FAMOTIDINE 20 MG TAB PO SCH (09:25)
[2023-08-12] MEDS: amLODIPine 10 MG TAB PO SCH (09:26)
[2023-08-12 10:12] LABS: Basophils # (A) 0.05 X 10*3/uL (0.00-0.10); Basophils % (A) 0.6 %; Eosinophils # (A) 0.21 X 10*3/uL (0.04-0.35); Eosinophils % (A) 2.7 %; HCT 48.8 % (39.6-50.0); HGB 15.8 g/dL (13.0-17.0); Lymphocytes # (A) 1.97 X 10*3/uL (0.90-5.00); Lymphocytes % (A) 25.3 %; MCH 27.8 pg (27.0-32.0); MCHC 32.4 g/dL (32.0-37.0); MCV 85.9 FL (80.0-97.0); Mean Platelet Volume 11.4 FL (9.5-12.2); Monocytes # (A) 0.51 X 10*3/uL (0.20-1.00); Monocytes % (A) 6.6 %; NRBC Per 100 WBC 0 X 10*3/uL (0.00-0.01); Neutrophils # (A) 5.01 X 10*3/uL (1.80-7.70); Neutrophils % (A) 64.4 %; Platelet Count 153 X 10*3/uL (140-440); RBC 5.68 X 10*6/uL (4.40-5.60); RDW 17.7 % (11.5-14.5); WBC 7.78 X 10*3/uL (4.50-10.00)
[2023-08-12 11:22] LABS: ALT 23 U/L (10-49); AST 26 U/L (14-35); Alkaline Phosphatase 101 U/L (41-126); BUN/Creat Ratio 19.71 Ratio (12.00-20.00); Blood Urea Nitrogen 13.8 mg/dL (9.0-27.0); Calcium 10.2 mg/dL (8.7-10.3); Carbon Dioxide 19.3 mmol/L (21.6-31.8); Chloride 106 mmol/L (96-109); Globulin 2.1 g/dL (1.6-3.3); Glucose 134 mg/dL (70-110); Potassium 4.1 mmol/L (3.5-5.5); Sodium 138 mmol/L (135-145); Total Bilirubin 0.6 mg/dL (0.3-1.2); Total Protein 6.1 g/dL (6.2-8.2)
[2023-08-12 12:17] LABS: Glucose,Whole Blood 144 mg/dL (70-110)
[2023-08-12] MEDS ORDERED: DEXTROSE 50% SYRINGE 50 ML IVP PRN ×2 (13:32)
--- NOTE | 2023-08-12 13:33 | P.PN ---
Subjective Progress Note Date: 08/12/23 Hospital Course: 72-year-old male with history of CAD status post stent, chronic diastolic heart failure, A-fib, hypertension, dyslipidemia, type 2 diabetes, chronic cholecystitis with recent cholecystectomy presenting with multiple complaints. In the ED, temperature was 97.6, pulse 65, respiratory rate 18, blood pressure 135/69, saturating at 93% on room air. WBC 9.9, hemoglobin 16.8, INR 1, bicarb 19, anion gap 13, creatinine 0.68, lactate 1.7, total calcium 10.6. Foot x-ray showed soft tissue edema suggestive of cellulitis, no evidence of osteomyelitis. CT head did not show any acute process. Patient being admitted for right great toe cellulitis, failed outpatient therapy. ID consulted. Patient was started on IV antibiotics Subjective: Patient seen and examined at bedside. No acute events overnight. Feeling a lot better today. Pertinent positives and negatives as discussed above, a complete review of systems was performed and all other systems are negative. Vitals Signs Reviewed. General: nontoxic, no distress, appears at stated age Derm: warm, dry, right great toe edematous, erythematous, no discharge, or ulceration Head: atraumatic, normocephalic, symmetric Eyes: EOMI, no lid lag, anicteric sclera, pupils equal round reactive to light ENT: Nose and ears atraumatic Neck: No thyromegaly, supple Mouth: no lip lesion, mucus membranes moist Cardiovascular: S1S2 reg, no murmur, no edema Lungs: clear to auscultation bilateral, no rhonchi, no rales, no wheeze, no accessory muscle use Abdominal: soft, nontender to palpation, no guarding, no appreciable org anomegaly Ext: no gross muscle atrophy, muscle strength muscle strength 5 out of 5 in all 4 extremities, no contractures Neuro: CN II-XII grossly intact Psych: Alert, oriented, appropriate affect Data Reviewed Today: Pertinent Labs: WBC 7.78, hemoglobin 15.8, potassium 4.1, bicarb 19.3, creatin ine 0.7, calcium 10.2, blood sugars range between 1 29-1 44 Imaging: No new imaging Assessment and Plan: Active: Right great toe cellulitis, failed outpatient therapy Cultures pending Likely gram-positive infection Okay to continue IV vancomycin, monitor renal function, consider de-escalating ID consulted Patient will likely go home with oral antibiotics Mild anion gap metabolic acidosis, improving Mild hypercalcemia, resolved Continue normal saline at 75 cc an hour Repeat BMP tomorrow Type 2 diabetes Hold oral medications, sliding scale insulin, monitor for hypoglycemia Anxiety Continue oral Ativan 1 mg 3 times daily as needed, monitor for sedation Also started on hydroxyzine 25 3 times daily as needed for anxiety Patient should follow-up with outpatient psychiatry He should also follow-up with neurology, does have history of sundowning, possible early dementia Chronic: Hypertension Gout Dyslipidemia Atrial fibrillation Chronic diastolic heart failure CAD status post stents DVT ppx: Xarelto Code status: Full code Anticipated discharge place: Home Anticipated discharge time: 24 to 48 hours Objective - Vital Signs Vital signs: Vital Signs Temp 98.0 F 08/12/23 07:15 Pulse 69 08/12/23 07:15 Resp 16 08/12/23 07:15 BP 110/68 08/12/23 07:15 Pulse Ox 94 L 08/12/23 07:15 FiO2 Intake & Output 08/11/23 08/12/23 08/12/23 18:59 06:59 18:59 Weight 153.314 kg 153.314 kg Other: Voiding Method Toilet Toilet # Voids 4 # Bowel Movements 2 - Labs CBC & Chem 7: 08/12/23 05:42 08/12/23 05:42 Labs: Abnormal Lab Results - Last 24 Hours (Table) 08/11/23 08/11/23 08/11/23 Range/Units 14:34 14:34 20:29 RBC 5.97 H (4.30-5.90) m/uL RDW 16.7 H (11.5-15.5) % Carbon Dioxide 19 L (22-30) mmol/L Anion Gap (4.00-12.00) mmol/L Glucose 143 H (74-99) mg/dL POC Glucose (mg/dL) 136 H (70-110) mg/dL Calcium 10.6 H (8.4-10.2) mg/dL Total Protein (6.2-8.2) g/dL 08/12/23 08/12/23 08/12/23 Range/Units 05:42 05:42 06:03 RBC 5.68 H (4.30-5.90) m/uL RDW 17.7 H (11.5-15.5) % Carbon Dioxide 19.3 L (22-30) mmol/L Anion Gap 12.70 H (4.00-12.00) mmol/L Glucose 134 H (74-99) mg/dL POC Glucose (mg/dL) 129 H (70-110) mg/dL Calcium (8.4-10.2) mg/dL Total Protein 6.1 L (6.2-8.2) g/dL 08/12/23 Range/Units 12:16 RBC (4.30-5.90) m/uL RDW (11.5-15.5) % Carbon Dioxide (22-30) mmol/L Anion Gap (4.00-12.00) mmol/L Glucose (74-99) mg/dL POC Glucose (mg/dL) 144 H (70-110) mg/dL Calcium (8.4-10.2) mg/dL Total Protein (6.2-8.2) g/dL
[2023-08-12] MEDS: VANCOMYCIN 2,250 MG in SODIUM CHLORIDE 0.9% 500 ML 500 ML IVPB SCH (15:21)
[2023-08-12 15:50] VITALS: RESP 17
--- NOTE | 2023-08-12 17:05 | P.CONS ---
History of Present Illness - Reason for Consult Consult date: 08/12/23 Right first toe wound Requesting physician: Evan Whitney - Chief Complaint Bleeding from the right big toe x 1 day - History of Present Illness Patient is a 72-year-old male with a past medical history significant for Atrial Fibrillation, Coronary Artery Disease (CAD), Cancer, Heart Failure, Diabetes Mellitus, GERD/Reflux, Hyperlipidemia, Hypertension, Myocardial Infarction ([place]), Sleep Apnea/CPAP/BIPAP, Thyroid Disorder, patient also have a chronic callus on the plantar aspect of the right big toe there is routinely being debrided by his temperer Dr. Mohamud, patient is presenting to [facility] ER complaining of bleeding from his right big toe apparently started the day of presentation to the hospital patient denies having any history of t rauma or pain to the right big toe area and denies having any purulent drainage patient apparently was also complaining of feeling lightheaded and some right- sided facial paresthesia, patient on presentation to the hospital was afebrile and no fever have recorded subsequently patient was not tachycardic hypotensive or hypoxic patient did have white count of 9.9 creatinine 0.68 liver enzymes are normal patient did have a foot x-ray soft tissue edema suggestive of cellulitis with no diagnostic evidence of osteomyelitis patient was started on vancomycin infectious disease was consulted for further management of antibiotic therapy Review of Systems Positive point and negatives has been mentioned in the HPI, complete review of systems was performed and all other systems are negative Past Medical History Past Medical History: Atrial Fibrillation, Coronary Artery Disease (CAD), Cancer, Heart Failure, Diabetes Mellitus, GERD/Reflux, Hyperlipidemia, Hypertension, Myocardial Infarction ([place]), Sleep Apnea/CPAP/BIPAP, Thyroid D isorder Additional Past Medical History / Comment(s): gout, skin ca, colon cancer with resection and chemo (2017)., c-pap machine., ulcer on side of right great toe- receives wound tx ., BPH., gall bladder pain. Last Myocardial Infarction Date:: 2006 History of Any Multi-Drug Resistant Organisms: MRSA Year Discovered:: 2022 MDRO Source:: right great toe Past Surgical History: Appendectomy, Bowel Resection, Cholecystectomy, Heart Catheterization With Stent, Orthopedic Surgery Additional Past Surgical History / Comment(s): skin ca removed, lt shoulder surgery ,rt knee surgery, deviated septum surgery Past Anesthesia/Blood Transfusion Reactions: No Reported Reaction Date of Last Stent Placement:: 2006 Past Psychological History: Anxiety, Bipolar, Depression Smoking Status: Former smoker Past Alcohol Use History: Occasional Additional Past Alcohol Use History / Comment(s): started smoking age 20- quit same year maybe total 3 packs in that time Past Drug Use History: None Reported Additional Drug Use History / Comment(s): past use of cbd gummies. - Past Family History Father Family Medical History: Asthma, Hyperlipidemia Additional Family Medical History / Comment(s): at age 61. was a heavy smoker,prostate sx a week before he not sure what took him. Mother Family Medical History: Dementia Additional Family Medical History / Comment(s): at age 75 from alzheimers Medications and Allergies Home Medications Medication Instructions Recorded Confirmed Type Potassium Chloride [Klor-Con 20] 20 meq PO DAILY 01/15/14 08/11/23 History Pravastatin Sodium [Pravachol] 40 mg PO HS 01/15/14 08/11/23 History allopurinoL [Zyloprim] 100 mg PO HS 07/28/15 08/11/23 History Sertraline HCl [Zoloft] 200 mg PO DAILY 11/05/15 08/11/23 History Rivaroxaban [Xarelto] 20 mg PO HS 07/27/17 08/11/23 History Empagliflozin [Jardiance] 25 mg PO DAILY 06/10/21 08/11/23 History Famotidine 20 mg PO DAILY 06/10/21 08/11/23 History Insulin Glargine,Hum.rec.anlog 1 - 20 unit SQ DAILY PRN 06/10/21 08/11/23 History [Lantus Solostar Pen] Pantoprazole [Protonix] 40 mg PO BID 06/10/21 08/11/23 History glipiZIDE [Glucotrol] 20 mg PO AC-BID 08/14/22 08/11/23 History Mirtazapine [Remeron] 22.5 mg PO HS 07/23/23 08/11/23 History Temazepam 7.5 mg PO HS 07/24/23 08/11/23 History Temazepam [Restoril] 15 mg PO HS 07/24/23 08/11/23 History Acetaminophen Tab [Tylenol] 1,000 mg PO Q6HR PRN #30 tablet 07/27/23 08/11/23 Rx amLODIPine [Norvasc] 10 mg PO DAILY 90 Days #90 tab 07/27/23 08/11/23 Rx lisinopriL [Zestril] 10 mg PO DAILY 90 Days #90 tab 07/27/23 08/11/23 Rx hydrOXYzine HCL [Atarax] 10 mg PO QID PRN 08/06/23 08/11/23 History Cipro (Unknown Dose) 1 dose PO DIRECTED 08/11/23 08/11/23 History LORazepam [Ativan] 2 mg PO BID 08/11/23 08/11/23 History Amoxic-Pot Clav 875-125Mg 1 tab PO Q12HR 14 Days #28 tab 08/13/23 Rx [Augmentin 875-125] Allergies Allergy/AdvReac Type Severity Reaction Status Date / Time clopidogrel bisulfate Allergy Rash/Hives Verified 08/11/23 18:54 [From Plavix] Sulfa (Sulfonamide Allergy Rash/Hives Verified 08/11/23 18:54 Antibiotics) gabapentin AdvReac Aggression, Verified 08/11/23 18:54 anxiety, mood swings metformin AdvReac Diarrhea Verified 08/11/23 18:54 morphine AdvReac Hallucinati Verified 08/11/23 18:54 ons pregabalin [From Lyrica] AdvReac Aggression, Verified 08/11/23 18:54 anxiety, mood swings Physical Exam Vitals: Vital Signs Temp Pulse Pulse Resp BP BP BP 08/12/23 07:15 98.0 F 69 16 110/68 08/12/23 02:00 79 08/12/23 01:42 98.2 F 79 15 123/76 08/11/23 19:16 98.1 F 75 15 145/77 08/11/23 18:15 97.6 F 76 18 125/77 08/11/23 17:15 76 18 144/85 08/11/23 16:00 76 16 132/81 08/11/23 14:36 87 20 127/80 08/11/23 13:50 97.6 F 65 18 135/69 Pulse Ox 08/12/23 07:15 94 L 08/12/23 02:00 08/12/23 01:42 95 08/11/23 19:16 95 08/11/23 18:15 99 08/11/23 17:15 98 08/11/23 16:00 99 08/11/23 14:36 97 08/11/23 13:50 93 L Intake and Output 08/11/23 08/12/23 08/12/23 22:59 06:59 14:59 Other: Voiding Method Toilet Toilet # Voids 2 4 # Bowel Movements 1 2 Weight 153.314 kg GENERAL DESCRIPTION: Elderly male lying in bed, no distress. No tachypnea or accessory muscle of respiration use. HEENT: Shows Pallor , no scleral icterus. Oral mucous membrane is dry. NECK: Trachea central, no thyromegaly. LUNGS: Unlabored breathing. Clear to auscultation anteriorly. No wheeze or crackle. HEART: S1, S2, regular rate and rhythm. No loud murmur ABDOMEN: Soft, no tenderness , guarding or rigidity, no organomegaly EXTREMITIES: Right big toe did have a callus on the plantar aspect medial side did have a blister with minimal bloodstained drainage and some erythema SKIN: No rash, no masses palpable. NEUROLOGICAL: The patient is awake, alert, oriented x3, mood and affect normal. Results CBC & Chem 7: 08/12/23 05:42 08/12/23 05:42 Labs: Abnormal Lab Results - Last 24 Hours (Table) 08/11/23 08/11/23 08/11/23 Range/Units 14:34 14:34 20:29 RBC 5.97 H (4.30-5.90) m/uL RDW 16.7 H (11.5-15.5) % Carbon Dioxide 19 L (22-30) mmol/L Anion Gap (4.00-12.00) mmol/L Glucose 143 H (74-99) mg/dL POC Glucose (mg/dL) 136 H (70-110) mg/dL Calcium 10.6 H (8.4-10.2) mg/dL Total Protein (6.2-8.2) g/dL 08/12/23 08/12/23 08/12/23 Range/Units 05:42 05:42 06:03 RBC 5.68 H (4.30-5.90) m/uL RDW 17.7 H (11.5-15.5) % Carbon Dioxide 19.3 L (22-30) mmol/L Anion Gap 12.70 H (4.00-12.00) mmol/L Glucose 134 H (74-99) mg/dL POC Glucose (mg/dL) 129 H (70-110) mg/dL Calcium (8.4-10.2) mg/dL Total Protein 6.1 L (6.2-8.2) g/dL 08/12/23 Range/Units 12:16 RBC (4.30-5.90) m/uL RDW (11.5-15.5) % Carbon Dioxide (22-30) mmol/L Anion Gap (4.00-12.00) mmol/L Glucose (74-99) mg/dL POC Glucose (mg/dL) 144 H (70-110) mg/dL Calcium (8.4-10.2) mg/dL Total Protein (6.2-8.2) g/dL Assessment and Plan (1) Diabetic infection of right foot Status: Acute Code(s): E11.628 - TYPE 2 DIABETES MELLITUS WITH OTHER SKIN COMPLICATIONS; L08.9 - LOCAL INFECTION OF THE SKIN AND SUBCUTANEOUS TISSUE, UNSP SNOMED Code(s): 77431091 (2) Diabetic ulcer of right great toe Status: Acute Code(s): E11.621 - TYPE 2 DIABETES MELLITUS WITH FOOT ULCER; L97.519 - NON-PRS CHRONIC ULCER OTH PRT RIGHT FOOT W UNSP SEVERITY SNOMED Code(s): 427682344 Plan: 1patient with right big toe diabetic foot ulcer in this patient who did have a chronic callus to the right big toe and concerning for mild cellulitis likely from gram-positive skin darius patient has not been on an antibiotic in the rece nt past and less risk of MRSA infection 2patient with a sulfa allergy 3May benefit from surgical debridement of this infected callus and deep culture 4we will discontinue vancomycin and start the patient on Unasyn and monitor clinical course closely We will follow on clinical condition and cultures to further adjust medication if needed Thank you for this consultation we will follow the patient along with you Dictation was produced using [employer] software. please excuse any grammatical, word or spelling errors. Time with Patient: Greater than 30
[2023-08-12 17:22] LABS: Glucose,Whole Blood 104 mg/dL (70-110)
[2023-08-12] MEDS: INSULIN ASPART (NovoLOG) 100 UNIT/ML VIAL SQ SCH (17:23)
[2023-08-12] MEDS: AMPICILLIN-SULBACTAM 3 GM in SODIUM CHLORIDE 0.9% 100 ML IVPB SCH (18:24)
[2023-08-12 20:27] LABS: Glucose,Whole Blood 130 mg/dL (70-110)
[2023-08-13 05:54] LABS: Glucose,Whole Blood 99 mg/dL (70-110)
[2023-08-13 09:04] VITALS: BP 133/76; PULSE 59; TEMP 97.5
--- NOTE | 2023-08-13 14:06 | P.DS ---
Providers Date of admission: 08/11/23 16:39 Expected date of discharge: 08/13/23 Attending physician: Girma Leos MD Consults: 08/11/23 16:39 Consult Physician Routine Consulting Provider: Ramon Wilkerson Consult Reason/Comments: right first toe wound Do you want consulting provider notified?: Yes Primary care physician: [facility] Hospital Course: Discharge Diagnosis: Right great toe cellulitis, failed outpatient therapy Mild anion gap metabolic acidosis Mild hypercalcemia Type 2 diabetes Anxiety Hospital Course: 72-year-old male with history of CAD status post stent, chronic diastolic heart failure, A-fib, hypertension, dyslipidemia, type 2 diabetes, chronic cholecystitis with recent cholecystectomy presenting with multiple complaints. In the ED, temperature was 97.6, pulse 65, respiratory rate 18, blood pressure 135/69, saturating at 93% on room air. WBC 9.9, hemoglobin 16.8, INR 1, bicarb 19, anion gap 13, creatinine 0.68, lactate 1.7, total calcium 10.6. Foot x-ray showed soft tissue edema suggestive of cellulitis, no evidence of osteomyelitis. CT head did not show any acute process. Patient being admitted for right great toe cellulitis, failed outpatient therapy. ID consulted. Patient was started on IV antibiotics. Seen by ID. Started on IV Unasyn. Lower extremity arterial Dopplers did not show any evidence of significant atherosclerotic disease. Patient to be discharged home with oral Augmentin, follow-up with podiatry. Patient seen and examined at bedside. Vital signs reviewed and stable. General: Nontoxic, no distress, appears at stated age Derm: Warm, dry, right great toe edematous, erythematous, no discharge, or ulceration Head: Atraumatic, normocephalic, symmetric Eyes: EOMI, no lid lag, anicteric sclera Mouth: No lip lesion, mucus membranes moist Cardiovascular: S1S2 reg, no murmur Lungs: CTA bilateral, no rhonchi, no rales, no accessory muscle use Abdominal: Soft, nontender to palpation, no guarding, no appreciable organomegaly Ext: No gross muscle atrophy, no edema, no contractures Neuro: CN II-XI grossly intact, no focal neuro deficits Psych: Alert, oriented, appropriate affect A total of 33 minutes of time were spent preparing this complex discharge summary. Patient was discharged on 08/13/2023 at 1204. Patient Condition at Discharge: Stable Plan - Discharge Summary New Discharge Prescriptions: New Amoxic-Pot Clav 875-125Mg [Augmentin 875-125] 1 tab PO Q12HR 14 Days #28 tab Continue Pravastatin Sodium [Pravachol] 40 mg PO HS Potassium Chloride [Klor-Con 20] 20 meq PO DAILY allopurinoL [Zyloprim] 100 mg PO HS Sertraline HCl [Zoloft] 200 mg PO DAILY Rivaroxaban [Xarelto] 20 mg PO HS Insulin Glargine,Hum.rec.anlog [Lantus Solostar Pen] 1 - 20 unit SQ DAILY PRN PRN Reason: Blood Sugar - High Famotidine 20 mg PO DAILY Mirtazapine [Remeron] 22.5 mg PO HS Temazepam 7.5 mg PO HS amLODIPine [Norvasc] 10 mg PO DAILY 90 Days #90 tab lisinopriL [Zestril] 10 mg PO DAILY 90 Days #90 tab hydrOXYzine HCL [Atarax] 10 mg PO QID PRN PRN Reason: Anxiety Cipro (Unknown Dose) 1 dose PO DIRECTED Empagliflozin [Jardiance] 25 mg PO DAILY Pantoprazole [Protonix] 40 mg PO BID glipiZIDE [Glucotrol] 20 mg PO AC-BID Temazepam [Restoril] 15 mg PO HS Acetaminophen Tab [Tylenol] 1,000 mg PO Q6HR PRN #30 tablet PRN Reason: Pain LORazepam [Ativan] 2 mg PO BID Discharge Medication List Potassium Chloride [Klor-Con 20] 20 meq PO DAILY 01/15/14 [History] Pravastatin Sodium [Pravachol] 40 mg PO HS 01/15/14 [History] allopurinoL [Zyloprim] 100 mg PO HS 07/28/15 [History] Sertraline HCl [Zoloft] 200 mg PO DAILY 11/05/15 [History] Rivaroxaban [Xarelto] 20 mg PO HS 07/27/17 [History] Empagliflozin [Jardiance] 25 mg PO DAILY 06/10/21 [History] Famotidine 20 mg PO DAILY 06/10/21 [History] Insulin Glargine,Hum.rec.anlog [Lantus Solostar Pen] 1 - 20 unit SQ DAILY PRN 06/10/21 [History] Pantoprazole [Protonix] 40 mg PO BID 06/10/21 [History] glipiZIDE [Glucotrol] 20 mg PO AC-BID 08/14/22 [History] Mirtazapine [Remeron] 22.5 mg PO HS 07/23/23 [History] Temazepam 7.5 mg PO HS 07/24/23 [History] Temazepam [Restoril] 15 mg PO HS 07/24/23 [History] Acetaminophen Tab [Tylenol] 1,000 mg PO Q6HR PRN #30 tablet 07/27/23 [Rx] amLODIPine [Norvasc] 10 mg PO DAILY 90 Days #90 tab 07/27/23 [Rx] lisinopriL [Zestril] 10 mg PO DAILY 90 Days #90 tab 07/27/23 [Rx] hydrOXYzine HCL [Atarax] 10 mg PO QID PRN 08/06/23 [History] Cipro (Unknown Dose) 1 dose PO DIRECTED 08/11/23 [History] LORazepam [Ativan] 2 mg PO BID 08/11/23 [History] Amoxic-Pot Clav 875-125Mg [Augmentin 875-125] 1 tab PO Q12HR 14 Days #28 tab [Rx] Follow up Appointment(s)/Referral(s): Dm Mohamud DPM [REFERRING] - 1 Week Ramon Wilkerson MD [STAFF PHYSICIAN] - 1 Week [facility],Clinic [Primary Care Provider] - 1-2 days Patient Instructions/Handouts: Cellulitis (GEN) Discharge Disposition: HOME SELF-CARE
--- NOTE | 2023-08-14 14:16 | P.PN ---
Subjective Progress Note Date: 08/13/23 Principal diagnosis: Reason for follow-up is right big toe diabetic foot ulcer and cellulitis Patient is a 72-year-old male with a past medical history significant for Atrial Fibrillation, Coronary Artery Disease (CAD), Cancer, Heart Failure, Diabetes Mellitus, GERD/Reflux, Hyperlipidemia, Hypertension, Myocardial Infarction ([place]), Sleep Apnea/CPAP/BIPAP, Thyroid Disorder, patient also have a chronic callus on the plantar aspect of the right big toe, presented to hospital with a bleeding from the right big toe callus there was concern for possible cellulitis. On today's visit that is 08/13/2023,the patient denies any fever or any chills, patient is breathing comfortably on room air, the patient denies chest pain shortness of breath and no significant cough, patient denies abdominal pain, no nausea vomiting or diarrhea. Denies any pain to the right big toe or any further bleeding or drainage. No new labs has been repeated today cultures currently pending Objective - Vital Signs Vital signs: Vital Signs Temp 97.5 F L 08/13/23 07:30 Pulse 59 L 08/13/23 07:30 Resp 17 08/13/23 07:30 BP 133/76 08/13/23 07:30 Pulse Ox 99 08/13/23 07:30 FiO2 Intake & Output 08/12/23 08/13/23 08/13/23 18:59 06:59 18:59 Intake Total 236 480 118 Balance 236 480 118 Intake: Oral 236 480 118 Other: Voiding Method Toilet Toilet Urinal # Voids 2 2 # Bowel Movements 2 - Exam GENERAL DESCRIPTION: An elderly male up in the chair in no distress RESPIRATORY SYSTEM: Unlabored breathing , decreased breath sounds at bases HEART: S1 S2 regular rate and rhythm , ABDOMEN: Soft , no tenderness EXTREMITIES: Right big toe plantar aspect did have a callus medial aspect did have a blister minimal bloodstained drainage and mild redness - Labs CBC & Chem 7: 08/12/23 05:42 08/12/23 05:42 Labs: Abnormal Lab Results - Last 24 Hours (Table) 08/12/23 08/12/23 08/13/23 Range/Units 12:16 20:21 05:47 POC Glucose (mg/dL) 144 H 130 H (70-110) mg/dL Hemoglobin A1c 6.7 H (<=6.0) % Microbiology - Last 24 Hours (Table) 08/11/23 17:15 Blood Culture - Preliminary Blood 08/11/23 17:30 Blood Culture - Preliminary Blood Assessment and Plan (1) Diabetic infection of right foot Status: Acute Code(s): E11.628 - TYPE 2 DIABETES MELLITUS WITH OTHER SKIN COMPLICATIONS; L08.9 - LOCAL INFECTION OF THE SKIN AND SUBCUTANEOUS TISSUE, UNSP SNOMED Code(s): 90823133 (2) Diabetic ulcer of right great toe Status: Acute Code(s): E11.621 - TYPE 2 DIABETES MELLITUS WITH FOOT ULCER; L97.519 - NON-PRS CHRONIC ULCER OTH PRT RIGHT FOOT W UNSP SEVERITY SNOMED Code(s): 271669071 Plan: 1patient with right big toe diabetic foot ulcer in this patient who did have a chronic callus to the right big toe and concerning for mild cellulitis likely from gram-positive skin darius patient has not been on an antibiotic in the recent past and less risk of MRSA infection 2patient with a sulfa allergy 3May benefit from surgical debridement of this infected callus and deep culture, however the patient has been insisting on going home he has been advised to follow-up with the global climate change researcher was discharged from the hospital and Unasyn can be switched over to oral Augmentin this was discussed with the admitting team working on discharge Dictation was produced using [employer] dictation software. please excuse any grammatical, word or spelling errors. Time with Patient: Less than 30
== END 2023-08-13 14:47 | disposition home or self-care (01) ==
LOC: EC 13:30 → 6NMEDSUR 16:39
PROVIDERS: ADMIT Student in an Organized Health Care Education/Training Program; ATTEND Student in an Organized Health Care Education/Training Program
DX: E11.628 Type 2 diabetes mellitus with other skin complications (principal); L03.031 Cellulitis of right toe; F41.9 Anxiety disorder, unspecified; I48.91 Unspecified atrial fibrillation; I25.10 Atherosclerotic heart disease of native coronary artery without angina pectoris; K21.9 Gastro-esophageal reflux disease without esophagitis; E78.5 Hyperlipidemia, unspecified; I11.0 Hypertensive heart disease with heart failure; I50.32 Chronic diastolic (congestive) heart failure; I25.2 Old myocardial infarction; G47.30 Sleep apnea, unspecified; N40.0 Benign prostatic hyperplasia without lower urinary tract symptoms; F31.9 Bipolar disorder, unspecified; E11.40 Type 2 diabetes mellitus with diabetic neuropathy, unspecified; E83.52 Hypercalcemia; M10.9 Gout, unspecified; Z85.038 Personal history of other malignant neoplasm of large intestine; Z85.828 Personal history of other malignant neoplasm of skin; Z87.891 Personal history of nicotine dependence; Z95.5 Presence of coronary angioplasty implant and graft; Z79.899 Other long term (current) drug therapy; Z79.01 Long term (current) use of anticoagulants; Z79.84 Long term (current) use of oral hypoglycemic drugs; Z79.4 Long term (current) use of insulin; Z88.2 Allergy status to sulfonamides
CPT/HCPCS: 96365; 96366 ×3; 96367; 99284; 36415; 93005; 80053 ×2; 83605; 85025 ×2; 85610; 85730; 87040; 87070; 87205; 87075; 83036; 73620; 93922; 70450; G0378 ×3; J3370 ×2; J0295 ×2

== ENCOUNTER 2023-11-20 18:16 | Inpatient (IN) | payer OTHER, MEDICARE ==
[2023-11-20 18:42] LABS: Glucose,Whole Blood 294 mg/dL (70-110)
--- NOTE | 2023-11-20 19:04 | ED ---
Weakness HPI - General Chief complaint: Neuro Symptoms/Deficit Stated complaint: R side jaw numbness/pain/weakness legs Time Seen by Provider: 11/20/23 18:31 Source: patient, RN notes reviewed, old records reviewed Limitations: no limitations - History of Present Illness Initial comments: This is a 73-year-old male to the ER for evaluation today. Patient presents today for evaluation regards to anxiety weakness altered mental status. Patient has no travel history no sick contacts no other complaints is concerned for patient's right-sided facial weakness but no other neurologic findings or complaints right-sided facial swelling. Falls not acting himself weakness off balance which is persistent MD Complaint: generalized weakness, lack of energy, difficulty walking -: days(s) Location: generalized Severity: moderate Severity scale (1-10): 4 Quality: tingling, numbness Consistency: constant Improves with: none Worsens with: none Context: recent illness Associated Symptoms: denies other symptoms - Related Data Home Medications Medication Instructions Recorded Confirmed Potassium Chloride [Klor-Con 20] 20 meq PO DAILY 01/15/14 11/21/23 Pravastatin Sodium [Pravachol] 40 mg PO HS 01/15/14 11/21/23 allopurinoL [Zyloprim] 100 mg PO HS 07/28/15 11/21/23 Sertraline HCl [Zoloft] 200 mg PO DAILY 11/05/15 11/21/23 Rivaroxaban [Xarelto] 20 mg PO HS 07/27/17 11/21/23 Empagliflozin [Jardiance] 25 mg PO DAILY 06/10/21 11/21/23 Famotidine 20 mg PO DAILY 06/10/21 11/21/23 Insulin Glargine,Hum.rec.anlog 15 unit SQ HS 06/10/21 11/21/23 [Lantus Solostar Pen] Pantoprazole [Protonix] 40 mg PO BID 06/10/21 11/21/23 glipiZIDE [Glucotrol] 20 mg PO AC-BID 08/14/22 11/21/23 Mirtazapine [Remeron] 45 mg PO HS 07/23/23 11/21/23 Temazepam 7.5 mg PO HS 07/24/23 11/21/23 Temazepam [Restoril] 15 mg PO HS 07/24/23 11/21/23 hydrOXYzine HCL [Atarax] 10 mg PO QID PRN 08/06/23 11/21/23 LORazepam [Ativan] 2 mg PO BID 08/11/23 11/21/23 amLODIPine [Norvasc] 10 mg PO DAILY 11/21/23 11/21/23 lisinopriL [Zestril] 10 mg PO DAILY 11/21/23 11/21/23 Previous Rx's Medication Instructions Recorded Acetaminophen Tab [Tylenol] 1,000 mg PO Q6HR PRN #30 tablet 07/27/23 Allergies Allergy/AdvReac Type Severity Reaction Status Date / Time clopidogrel bisulfate Allergy Rash/Hives Verified 11/21/23 10:11 [From Plavix] Sulfa (Sulfonamide Allergy Rash/Hives Verified 11/21/23 10:11 Antibiotics) gabapentin AdvReac Aggression, Verified 11/21/23 10:11 anxiety, mood swings metformin AdvReac Diarrhea Verified 11/21/23 10:11 morphine AdvReac Hallucinati Verified 11/21/23 10:11 ons pregabalin [From Lyrica] AdvReac Aggression, Verified 11/21/23 10:11 anxiety, mood swings Review of Systems ROS Statement: Those systems with pertinent positive or pertinent negative responses have been documented in the HPI. ROS Other: All systems not noted in ROS Statement are negative. Past Medical History Past Medical History: Atrial Fibrillation, Coronary Artery Disease (CAD), Cancer, Heart Failure, Diabetes Mellitus, GERD/Reflux, Hyperlipidemia, Hypertension, Myocardial Infarction (HI), Sleep Apnea/CPAP/BIPAP, Thyroid Di sorder Additional Past Medical History / Comment(s): gout, skin ca, colon cancer with resection and chemo (2017)., c-pap machine., ulcer on side of right great toe- receives wound tx ., BPH., gall bladder pain. Last Myocardial Infarction Date:: 2006 History of Any Multi-Drug Resistant Organisms: MRSA Date of last positivie culture/infection: 2022 MDRO Source:: right great toe Past Surgical History: Appendectomy, Bowel Resection, Heart Catheterization With Stent, Orthopedic Surgery Additional Past Surgical History / Comment(s): skin ca removed, lt shoulder surgery ,rt knee surgery, deviated septum surgery Past Anesthesia/Blood Transfusion Reactions: No Reported Reaction Date of Last Stent Placement:: 2006 Past Psychological History: Anxiety, Bipolar, Depression Smoking Status: Former smoker Past Alcohol Use History: Occasional Past Drug Use History: None Reported - Past Family History Father Family Medical History: Asthma, Hyperlipidemia Additional Family Medical History / Comment(s): at age 61. was a heavy smoker,prostate sx a week before he not sure what took him. Mother Family Medical History: Dementia Additional Family Medical History / Comment(s): at age 75 from alzheimers General Exam Limitations: altered mental status General appearance: alert, in no apparent distress, anxious, in distress Head exam: Present: atraumatic, normocephalic, normal inspection Eye exam: Present: normal appearance, PERRL, EOMI. Absent: scleral icterus, conjunctival injection, periorbital swelling ENT exam: Present: normal exam, mucous membranes moist Neck exam: Present: normal inspection. Absent: tenderness, meningismus, lymphadenopathy Respiratory exam: Present: normal lung sounds bilaterally. Absent: respiratory distress, wheezes, rales, rhonchi, stridor Cardiovascular Exam: Present: regular rate, normal rhythm, normal heart sounds. Absent: systolic murmur, diastolic murmur, rubs, gallop, clicks GI/Abdominal exam: Present: soft, normal bowel sounds. Absent: distended, tenderness, guarding, rebound, rigid Extremities exam: Present: normal inspection, full ROM, normal capillary refill. Absent: tenderness, pedal edema, joint swelling, calf tenderness Back exam: Present: normal inspection Neurological exam: Present: alert, oriented X3, CN II-XII intact Psychiatric exam: Present: normal affect, normal mood Skin exam: Present: warm, dry, intact, normal color. Absent: rash Course Vital Signs 11/20/23 11/20/23 11/20/23 18:22 19:51 20:25 Temperature 97.4 F L Pulse Rate 82 82 Pulse Rate [ Pulse Oximetery ] Respiratory 18 18 Rate Blood Pressure 192/85 169/84 152/73 Blood Pressure [Right Arm Supine] O2 Sat by Pulse 96 97 Oximetry Fraction of Inspired Oxygen (FIO2) 11/20/23 11/20/23 11/21/23 21:40 22:48 02:00 Temperature 97.5 F L 97.4 F L Pulse Rate 65 67 Pulse Rate [ 70 Pulse Oximetery ] Respiratory 18 16 19 Rate Blood Pressure 152/89 125/72 Blood Pressure 174/82 [Right Arm Supine] O2 Sat by Pulse 97 95 95 Oximetry Fraction of Inspired Oxygen (FIO2) 11/21/23 11/21/23 11/21/23 02:31 02:37 04:10 Temperature Pulse Rate Pulse Rate [ 70 69 Pulse Oximetery ] Respiratory 18 Rate Blood Pressure Blood Pressure 142/73 [Right Arm Supine] O2 Sat by Pulse 97 Oximetry Fraction of 21 Inspired Oxygen (FIO2) 11/21/23 11/21/23 11/21/23 08:00 10:26 14:00 Temperature 97.5 F L 97.6 F Pulse Rate 70 Pulse Rate [ 71 62 Pulse Oximetery ] Respiratory 18 18 18 Rate Blood Pressure Blood Pressure 157/87 149/79 [Right Arm Supine] O2 Sat by Pulse 98 94 L 95 Oximetry Fraction of Inspired Oxygen (FIO2) 11/21/23 11/21/23 11/21/23 16:49 19:02 22:45 Temperature Pulse Rate 74 74 59 L Pulse Rate [ Pulse Oximetery ] Respiratory 18 18 18 Rate Blood Pressure 136/76 148/80 145/74 Blood Pressure [Right Arm Supine] O2 Sat by Pulse 96 98 96 Oximetry Fraction of Inspired Oxygen (FIO2) - Reevaluation(s) Reevaluation #1: 11/20/23 20:51 Medical record is reviewed Reevaluation #2: 11/20/23 20:51 Patient symptoms improved Reevaluation #3: 11/20/23 20:51 Patient informed of results questions answered Reevaluation #4: Was pt. sent in by a medical professional or institution (, PA, [facility], urgent care, hospital, or halfway...) When possible be specific @ -no Did you speak to anyone other than the patient for history (EMS, parent, family, police, friend...)? What history was obtained from this source @ -no Did you review nursing and triage notes (agree or disagree)? Why? @ -agree Are old charts reviewed (outside hosp., previous admission, EMS record, old EKG, old radiological studies, urgent care reports/EKG's, halfway records)? Report findings @ -yes Differential Diagnosis (chest pain, altered mental status, abdominal pain women, abdominal pain men, vaginal bleeding, weakness, fever, dyspnea, syncope, headache, dizziness, GI bleed, back pain, seizure, CVA, palpatations, mental health, musculoskeletal)? @ -prior EKG interpreted by me (3pts min.). @ -yes X-rays interpreted by me (1pt min.). @ -yes negative for acute disease CT interpreted by me (1pt min.). @ -no U/S interpreted by me (1pt. min.). @ -no What testing was considered but not performed or refused? (CT, X-rays, U/S, labs)? Why? @ -none What meds were considered but not given or refused? Why? @ -none Did you discuss the management of the patient with other professionals (professionals i.e. DrJeri, PA, [facility], lab, RT, psych nurse, director social service, welt beater, teacher, deck officer, case liner)? Give summary @ -no Was smoking cessation discussed for >3mins.? @ -no Was critical care preformed (if so, how long)? @ -no Were there social determinants of health that impacted care today? How? (Homelessness, low income, unemployed, alcoholism, drug addiction, transportation, low edu. Level, literacy, decrease access to med. care, longterm, rehab)? @ -none Was there de-escalation of care discussed even if they declined (Discuss DNR or withdrawal of care, Hospice)? DNR status @ -no What co-morbidities impacted this encounter? (DM, HTN, Smoking, COPD, CAD, Cancer, CVA, ARF, Chemo, Hep., AIDS, mental health diagnosis, sleep apnea, morbid obesity)? @ -none Was patient admitted / discharged? Hospital course, mention meds given and route, prescriptions, significant lab abnormalities, going to OR and other pertinent info. @ - 73 male to the ER for evaluation of anxiety. Patient has persistent anxiety here in the emergency department but feels improved, but patient remains with weakness off balance and ataxia and need for further evaluation by neurology and psychiatry Admitted Undiagnosed new problem with uncertain prognosis? @ -no Drug Therapy requiring intensive monitoring for toxicity (Heparin, Nitro, Insulin, Cardizem)? @ -no Were any procedures done? @ -no Diagnosis/symptom? @ -Weakness debility Acute, or Chronic, or Acute on Chronic? @ -Acute Uncomplicated (without systemic symptoms) or Complicated (systemic symptoms)? @ -Complicated Side effects of treatment? @ -no Exacerbation, Progression, or Severe Exacerbation? @ -exacerbation Poses a threa extremes of age Reevaluation #5: Differential Weakness: Hypoglycemia, shock, sepsis, hyponatremia, anemia, infection, HI, ETOH, adverse medicine reaction, overdose, stroke, this is not meant to be an all-inclusive list. - Consultations Consultation #1: Spoke with admitting who agrees to admit this patient EKG Findings - EKG Comments: EKG Findings:: EKG is A-fib 74 QRS 118 QTc 424 - EKG Results: EKG: interpreted by KASSIE Medical Decision Making - Medical Decision Making 73 male to the ER for evaluation of anxiety. Patient has persistent anxiety here in the emergency department but feels improved, but patient remains with weakness off balance and ataxia and need for further evaluation by neurology and psychiatry - Lab Data Result diagrams: 11/22/23 06:58 11/22/23 06:58 Lab Results 11/20/23 11/20/23 11/20/23 Range/Units 18:40 19:05 19:05 WBC 6.1 (3.8-10.6) k/uL RBC 5.84 (4.30-5.90) m/uL Hgb 15.2 (13.0-17.5) gm/dL Hct 50.1 (39.0-53.0) % MCV 85.8 (80.0-100.0) fL MCH 26.0 (25.0-35.0) pg MCHC 30.3 L (31.0-37.0) g/dL RDW 16.5 H (11.5-15.5) % Plt Count 142 L (150-450) k/uL MPV 8.3 Neutrophils % 68 % Lymphocytes % 22 % Monocytes % 5 % Eosinophils % 2 % Basophils % 1 % Neutrophils # 4.2 (1.3-7.7) k/uL Lymphocytes # 1.3 (1.0-4.8) k/uL Monocytes # 0.3 (0-1.0) k/uL Eosinophils # 0.1 (0-0.7) k/uL Basophils # 0.1 (0-0.2) k/uL Hypochromasia Moderate Anisocytosis Slight PT 10.9 (10.0-12.5) sec INR 1.0 (<1.2) APTT 26.3 (22.0-30.0) sec Sodium (137-145) mmol/L Potassium (3.5-5.1) mmol/L Chloride (98-107) mmol/L Carbon Dioxide (22-30) mmol/L Anion Gap mmol/L BUN (9-20) mg/dL Creatinine (0.66-1.25) mg/dL Est GFR (CKD-EPI)AfAm (>60 ml/min/1.73 sqM) Est GFR (CKD-EPI)NonAf (>60 ml/min/1.73 sqM) Glucose (74-99) mg/dL POC Glucose (mg/dL) 294 H (70-110) mg/dL POC Glu [employer] ID Tiny Robertson Lactic Ac Sepsis Rflx Plasma Lactic Acid Iván (0.7-2.0) mmol/L Calcium (8.4-10.2) mg/dL Phosphorus (2.5-4.5) mg/dL Magnesium (1.6-2.3) mg/dL Total Bilirubin (0.2-1.3) mg/dL AST (17-59) U/L ALT (4-49) U/L Alkaline Phosphatase (38-126) U/L Troponin I (0.000-0.034) ng/mL Total Protein (6.3-8.2) g/dL Albumin (3.5-5.0) g/dL Urine Color Urine Appearance (Clear) Urine pH (5.0-8.0) Ur Specific [place] (1.001-1.035) Urine Protein (Negative) Urine Glucose (UA) (Negative) Urine Ketones (Negative) Urine Blood (Negative) Urine Nitrite (Negative) Urine Bilirubin (Negative) Urine Urobilinogen (<2.0) mg/dL Ur Leukocyte Esterase (Negative) 11/20/23 11/20/23 11/20/23 Range/Units 19:05 19:05 19:05 WBC (3.8-10.6) k/uL RBC (4.30-5.90) m/uL Hgb (13.0-17.5) gm/dL Hct (39.0-53.0) % MCV (80.0-100.0) fL MCH (25.0-35.0) pg MCHC (31.0-37.0) g/dL RDW (11.5-15.5) % Plt Count (150-450) k/uL MPV Neutrophils % % Lymphocytes % % Monocytes % % Eosinophils % % Basophils % % Neutrophils # (1.3-7.7) k/uL Lymphocytes # (1.0-4.8) k/uL Monocytes # (0-1.0) k/uL Eosinophils # (0-0.7) k/uL Basophils # (0-0.2) k/uL Hypochromasia Anisocytosis PT (10.0-12.5) sec INR (<1.2) APTT (22.0-30.0) sec Sodium 139 (137-145) mmol/L Potassium 4.3 (3.5-5.1) mmol/L Chloride 108 H (98-107) mmol/L Carbon Dioxide 23 (22-30) mmol/L Anion Gap 8 mmol/L BUN 16 (9-20) mg/dL Creatinine 0.79 (0.66-1.25) mg/dL Est GFR (CKD-EPI)AfAm >90 (>60 ml/min/1.73 sqM) Est GFR (CKD-EPI)NonAf >90 (>60 ml/min/1.73 sqM) Glucose 248 H (74-99) mg/dL POC Glucose (mg/dL) (70-110) mg/dL POC Glu [employer] ID Lactic Ac Sepsis Rflx Plasma Lactic Acid Iván 3.7 H* (0.7-2.0) mmol/L Calcium 9.9 (8.4-10.2) mg/dL Phosphorus 3.2 (2.5-4.5) mg/dL Magnesium 2.1 (1.6-2.3) mg/dL Total Bilirubin 0.6 (0.2-1.3) mg/dL AST 38 (17-59) U/L ALT 30 (4-49) U/L Alkaline Phosphatase 105 (38-126) U/L Troponin I (0.000-0.034) ng/mL Total Protein 6.9 (6.3-8.2) g/dL Albumin 4.3 (3.5-5.0) g/dL Urine Color Colorless Urine Appearance Clear (Clear) Urine pH 5.0 (5.0-8.0) Ur Specific [place] 1.025 (1.001-1.035) Urine Protein Negative (Negative) Urine Glucose (UA) 4+ H (Negative) Urine Ketones Negative (Negative) Urine Blood Negative (Negative) Urine Nitrite Negative (Negative) Urine Bilirubin Negative (Negative) Urine Urobilinogen <2.0 (<2.0) mg/dL Ur Leukocyte Esterase Negative (Negative) 11/20/23 11/20/23 Range/Units 19:05 19:54 WBC (3.8-10.6) k/uL RBC (4.30-5.90) m/uL Hgb (13.0-17.5) gm/dL Hct (39.0-53.0) % MCV (80.0-100.0) fL MCH (25.0-35.0) pg MCHC (31.0-37.0) g/dL RDW (11.5-15.5) % Plt Count (150-450) k/uL MPV Neutrophils % % Lymphocytes % % Monocytes % % Eosinophils % % Basophils % % Neutrophils # (1.3-7.7) k/uL Lymphocytes # (1.0-4.8) k/uL Monocytes # (0-1.0) k/uL Eosinophils # (0-0.7) k/uL Basophils # (0-0.2) k/uL Hypochromasia Anisocytosis PT (10.0-12.5) sec INR (<1.2) APTT (22.0-30.0) sec Sodium (137-145) mmol/L Potassium (3.5-5.1) mmol/L Chloride (98-107) mmol/L Carbon Dioxide (22-30) mmol/L Anion Gap mmol/L BUN (9-20) mg/dL Creatinine (0.66-1.25) mg/dL Est GFR (CKD-EPI)AfAm (>60 ml/min/1.73 sqM) Est GFR (CKD-EPI)NonAf (>60 ml/min/1.73 sqM) Glucose (74-99) mg/dL POC Glucose (mg/dL) (70-110) mg/dL POC Glu [employer] ID Lactic Ac Sepsis Rflx Y Plasma Lactic Acid Iván (0.7-2.0) mmol/L Calcium (8.4-10.2) mg/dL Phosphorus (2.5-4.5) mg/dL Magnesium (1.6-2.3) mg/dL Total Bilirubin (0.2-1.3) mg/dL AST (17-59) U/L ALT (4-49) U/L Alkaline Phosphatase (38-126) U/L Troponin I <0.012 (0.000-0.034) ng/mL Total Protein (6.3-8.2) g/dL Albumin (3.5-5.0) g/dL Urine Color Urine Appearance (Clear) Urine pH (5.0-8.0) Ur Specific [place] (1.001-1.035) Urine Protein (Negative) Urine Glucose (UA) (Negative) Urine Ketones (Negative) Urine Blood (Negative) Urine Nitrite (Negative) Urine Bilirubin (Negative) Urine Urobilinogen (<2.0) mg/dL Ur Leukocyte Esterase (Negative) - EKG Data -: EKG Interpreted by [place] - Radiology Data Radiology results: report reviewed (CT brain is negative for acute disease), image reviewed Disposition Clinical Impression: Weakness, Anxiety, Falls, Dizziness, Headache, Facial swelling, Hypertension Disposition: HOME SELF-CARE Condition: Good Is patient prescribed a controlled substance at d/c from ED?: No Time of Disposition: 20:50
[2023-11-20 19:16] LABS: Anisocytosis Slight; Basophils # (A) 0.1 k/uL (0-0.2); Basophils % (A) 1 %; Eosinophils # (A) 0.1 k/uL (0-0.7); Eosinophils % (A) 2 %; HCT 50.1 % (39.0-53.0); HGB 15.2 gm/dL (13.0-17.5); Hypochromasia Moderate; Lymphocytes # (A) 1.3 k/uL (1.0-4.8); Lymphocytes % (A) 22 %; MCHC 30.3 g/dL (31.0-37.0); MCV 85.8 fL (80.0-100.0); Mean Platelet Volume 8.3; Monocytes # (A) 0.3 k/uL (0-1.0); Monocytes % (A) 5 %; Neutrophils # (A) 4.2 k/uL (1.3-7.7); Neutrophils % (A) 68 %; Platelet Count 142 k/uL (150-450); RBC 5.84 m/uL (4.30-5.90); RDW 16.5 % (11.5-15.5); WBC 6.1 k/uL (3.8-10.6)
[2023-11-20 19:26] LABS: Partial Thromboplastin Time 26.3 sec (22.0-30.0); Prothrombin Time 10.9 sec (10.0-12.5)
[2023-11-20] MEDS: LABETALOL 5 MG/ML VIAL MDV IVP STA (19:30)
[2023-11-20 19:34] LABS: ALT 30 U/L (4-49); AST 38 U/L (17-59); African American GFR (CKD) >90 (>60 ml/min/1.73 sqM); Albumin 4.3 g/dL (3.5-5.0); Alkaline Phosphatase 105 U/L (38-126); Anion Gap 8 mmol/L; Blood Urea Nitrogen 16 mg/dL (9-20); Calcium 9.9 mg/dL (8.4-10.2); Carbon Dioxide 23 mmol/L (22-30); Chloride 108 mmol/L (98-107); Glucose 248 mg/dL (74-99); Magnesium 2.1 mg/dL (1.6-2.3); Non-African American GFR(CKD) >90 (>60 ml/min/1.73 sqM); Phosphorus 3.2 mg/dL (2.5-4.5); Potassium 4.3 mmol/L (3.5-5.1); Sodium 139 mmol/L (137-145); Total Bilirubin 0.6 mg/dL (0.2-1.3); Total Protein 6.9 g/dL (6.3-8.2)
[2023-11-20] MEDS: SODIUM CHLORIDE 0.9% 1,000 ML IV STA (19:34)
[2023-11-20] MEDS: LORazepam 2 MG/ML INJ IV STA (19:36)
--- NOTE | 2023-11-20 19:44 | CT ---
EXAMINATION TYPE: CT brain wo con DATE OF EXAM: 11/20/2023 COMPARISON: 08/11/2023 HISTORY: 73-year-old male Weakness. TECHNIQUE: Examination was done in axial plane without intravenous contrast. Coronal and sagittal r econstructions performed. CT DLP: 1227.4 mGycm Automated exposure control for dose reduction was used. FINDINGS: There is no evidence of acute intracranial hemorrhage, acute ischemic changes, mass, mass-effect, or extra-axial fluid collection. There is no effacement of cerebral sulci or basal subarachnoid cister ns. There is no hydrocephalus. There is no midline shift. Reagan-white matter distinction is preserv ed. Partially empty sella is unchanged. Mucosal thickening ethmoid air cells. Mastoid air cells well pneumatized. Orbits and globes are intac t. IMPRESSION: No acute intracranial abnormality seen.
[2023-11-20 20:12] LABS: Appearance,Urine Clear (Clear); Bilirubin,Urine Negative (Negative); Blood,Urine Negative (Negative); Color,Urine Colorless; Glucose,Urine (UA) 4+ (Negative); Ketones,Urine Negative (Negative); Leukocyte Esterase,Urine Negative (Negative); Nitrite,Urine Negative (Negative); Protein,Urine Negative (Negative); Specific Gravity,Urine 1.025 (1.001-1.035); Urobilinogen,Urine <2.0 mg/dL (<2.0)
[2023-11-20] MEDS ORDERED: NALOXONE 0.4 MG/ML 1 ML VIAL IV PRN (21:14)
[2023-11-20] MEDS ORDERED: ONDANSETRON 4 MG/2 ML VIAL IVP PRN (21:14)
[2023-11-20] MEDS: LORazepam 2 MG/ML INJ IV PRN (21:38)
[2023-11-20] MEDS: SODIUM CHLORIDE 0.9% 1,000 ML IV SCH (21:39)
--- NOTE | 2023-11-21 02:36 | P.HPIM ---
History of Present Illness H&P Date: 11/21/23 Patient is a 73-year-old male with a PMH of A-fib on Xarelto, diastolic CHF, hypertension, hyperlipidemia, type II DM, CAD status post stenting, and anxiety who presents to the emergency room with multiple complaints. Patient reports that over the past 1 month, he has been feeling increasingly anxious and is worried that something may be wrong with him. He has also been struggling with depressive thoughts but denies any active suicidal ideation. Patient notes that over the past 1 to 2 days however he has also been experiencing paresthesias involving his face and left hand which are accompanied by lightheadedness. Patient also notes that he was somewhat confused throughout the day today. He also reports decreased oral intake over the past several days due to his symptoms. Denied experiencing fever, chills, chest pain, shortness of breath, nausea, vomiting, abdominal pain, diarrhea. CT brain in the emergency room was unremarkable. EKG revealed A-fib with PVCs at 74 bpm with a right bundle branch block as reviewed by me. Laboratory evaluation was remarkable for platelet count 142, lactic acid 3.7, troponin less than 0.012, with an unremarkable UA. ED documentation reviewed and case discussed with ED provider. Review of systems: Pertinent positives and negatives as discussed in HPI, a complete review of systems was performed and all other systems are negative. Physical examination: Vital signs reviewed General: non toxic, no distress, appears at stated age, obese Derm: no unusual rashes/lesions, warm Head: atraumatic, normocephalic, symmetric Eyes: EOMI, no lid lag, anicteric sclera, pupils equal round reactive to light ENT: Nose and ears atraumatic Neck: No cervical lymphadenopathy, trachea midline, supple Mouth: no lip lesion, mucus membranes moist Cardiovascular: S1S2 reg, no murmur, positive dorsalis pedis pulse bilateral, no edema Lungs: CTA bilateral, no rhonchi, no rales, no accessory muscle use Abdominal: soft, nontender to palpation, no guarding Ext: muscle strength 5 out of 5 in all 4 extremities grossly, no gross muscle atrophy, no contractures, Neuro: CN II-XI grossly intact, no gross focal neuro deficits Psych: Alert, oriented, appropriate affect Assessment: Left facial and hand paresthesias with confusion Lactic acidosis Anxiety with depression Thrombocytopenia, similar to baseline Chronic conditions: Diastolic CHF, A-fib, hypertension, hyperlipidemia, type II DM, CAD Imaging: CT brain in the emergency room was unremarkable. EKG revealed A-fib with PVCs at 74 bpm with a right bundle branch block as reviewed by me Data Review: Laboratory evaluation was remarkable for platelet count 142, lactic acid 3.7, troponin less than 0.012, with an unremarkable UA. Plan: Consult neurology Cardiac monitoring Psychiatry consulted IV fluids with normal saline 75 cc/h Monitor lactic acid levels for resolution Continue with Ativan as needed for anxiety Resume home medications once reconciled Insulin sliding scale and blood glucose monitoring DVT prophylaxis: Xarelto The patient is admitted with an anticipated fewer than 2 midnight stay for evaluation of confusion and anxiety CODE STATUS: Full Code Discussed with: Patient Anticipated discharge place: Home Past Medical History Past Medical History: Atrial Fibrillation, Coronary Artery Disease (CAD), Cancer, Heart Failure, Diabetes Mellitus, GERD/Reflux, Hyperlipidemia, Hypertension, Myocardial Infarction ([place]), Sleep Apnea/CPAP/BIPAP, Thyroid Disorder Additional Past Medical History / Comment(s): gout, skin ca, colon cancer with resection and chemo (2017)., c-pap machine., ulcer on side of right great toe- receives wound tx ., BPH., gall bladder pain. Last Myocardial Infarction Date:: 2006 History of Any Multi-Drug Resistant Organisms: MRSA Date of last positivie culture/infection: 2022 MDRO Source:: right great toe Past Surgical History: Appendectomy, Bowel Resection, Heart Catheterization With Stent, Orthopedic Surgery Additional Past Surgical History / Comment(s): skin ca removed, lt shoulder surgery ,rt knee surgery, deviated septum surgery Past Anesthesia/Blood Transfusion Reactions: No Reported Reaction Date of Last Stent Placement:: 2006 Past Psychological History: Anxiety, Bipolar, Depression Smoking Status: Former smoker Past Alcohol Use History: Occasional Past Drug Use History: None Reported - Past Family History Father Family Medical History: Asthma, Hyperlipidemia Additional Family Medical History / Comment(s): at age 61. was a heavy smoker,prostate sx a week before he not sure what took him. Mother Family Medical History: Dementia Additional Family Medical History / Comment(s): at age 75 from alzheimers Medications and Allergies Home Medications Medication Instructions Recorded Confirmed Type Potassium Chloride [Klor-Con 20] 20 meq PO DAILY 01/15/14 08/11/23 History Pravastatin Sodium [Pravachol] 40 mg PO HS 01/15/14 08/11/23 History allopurinoL [Zyloprim] 100 mg PO HS 07/28/15 08/11/23 History Sertraline HCl [Zoloft] 200 mg PO DAILY 11/05/15 08/11/23 History Rivaroxaban [Xarelto] 20 mg PO HS 07/27/17 08/11/23 History Empagliflozin [Jardiance] 25 mg PO DAILY 06/10/21 08/11/23 History Famotidine 20 mg PO DAILY 06/10/21 08/11/23 History Insulin Glargine,Hum.rec.anlog 1 - 20 unit SQ DAILY PRN 06/10/21 08/11/23 History [Lantus Solostar Pen] Pantoprazole [Protonix] 40 mg PO BID 06/10/21 08/11/23 History glipiZIDE [Glucotrol] 20 mg PO AC-BID 08/14/22 08/11/23 History Mirtazapine [Remeron] 22.5 mg PO HS 07/23/23 08/11/23 History Temazepam 7.5 mg PO HS 07/24/23 08/11/23 History Temazepam [Restoril] 15 mg PO HS 07/24/23 08/11/23 History Acetaminophen Tab [Tylenol] 1,000 mg PO Q6HR PRN #30 tablet 07/27/23 08/11/23 Rx amLODIPine [Norvasc] 10 mg PO DAILY 90 Days #90 tab 07/27/23 08/11/23 Rx lisinopriL [Zestril] 10 mg PO DAILY 90 Days #90 tab 07/27/23 08/11/23 Rx hydrOXYzine HCL [Atarax] 10 mg PO QID PRN 08/06/23 08/11/23 History Cipro (Unknown Dose) 1 dose PO DIRECTED 08/11/23 08/11/23 History LORazepam [Ativan] 2 mg PO BID 08/11/23 08/11/23 History Amoxic-Pot Clav 875-125Mg 1 tab PO Q12HR 14 Days #28 tab 08/13/23 Rx [Augmentin 875-125] Allergies Allergy/AdvReac Type Severity Reaction Status Date / Time clopidogrel bisulfate Allergy Rash/Hives Verified 08/11/23 18:54 [From Plavix] Sulfa (Sulfonamide Allergy Rash/Hives Verified 08/11/23 18:54 Antibiotics) gabapentin AdvReac Aggression, Verified 08/11/23 18:54 anxiety, mood swings metformin AdvReac Diarrhea Verified 08/11/23 18:54 morphine AdvReac Hallucinati Verified 08/11/23 18:54 ons pregabalin [From Lyrica] AdvReac Aggression, Verified 08/11/23 18:54 anxiety, mood swings Physical Exam Vitals: Vital Signs Temp Pulse Pulse Resp BP BP Pulse Ox 11/21/23 02:31 11/21/23 02:00 97.4 F L 70 19 174/82 95 11/20/23 22:48 97.5 F L 67 16 125/72 95 11/20/23 21:40 65 18 152/89 97 11/20/23 20:25 152/73 11/20/23 19:51 82 18 169/84 97 11/20/23 18:22 97.4 F L 82 18 192/85 96 FiO2 11/21/23 02:31 21 11/21/23 02:00 11/20/23 22:48 11/20/23 21:40 11/20/23 20:25 11/20/23 19:51 11/20/23 18:22 Intake and Output 11/20/23 11/20/23 11/21/23 14:59 22:59 06:59 Other: Weight 107.955 kg Results CBC & Chem 7: 11/20/23 19:05 11/20/23 19:05 Labs: Abnormal Lab Results - Last 24 Hours (Table) 11/20/23 11/20/23 11/20/23 Range/Units 18:40 19:05 19:05 MCHC 30.3 L (31.0-37.0) g/dL RDW 16.5 H (11.5-15.5) % Plt Count 142 L (150-450) k/uL Chloride (98-107) mmol/L Glucose (74-99) mg/dL POC Glucose (mg/dL) 294 H (70-110) mg/dL Plasma Lactic Acid Iván (0.7-2.0) mmol/L Urine Glucose (UA) 4+ H (Negative) 11/20/23 11/20/23 11/20/23 Range/Units 19:05 19:05 22:06 MCHC (31.0-37.0) g/dL RDW (11.5-15.5) % Plt Count (150-450) k/uL Chloride 108 H (98-107) mmol/L Glucose 248 H (74-99) mg/dL POC Glucose (mg/dL) (70-110) mg/dL Plasma Lactic Acid Iván 3.7 H* 2.2 H* (0.7-2.0) mmol/L Urine Glucose (UA) (Negative)
[2023-11-21 02:42] LABS: Anisocytosis Slight; Basophils # (A) 0.1 k/uL (0-0.2); Basophils % (A) 1 %; Eosinophils # (A) 0.2 k/uL (0-0.7); Eosinophils % (A) 2 %; HCT 44.3 % (39.0-53.0); HGB 13.5 gm/dL (13.0-17.5); Hypochromasia Moderate; Lymphocytes # (A) 1.7 k/uL (1.0-4.8); Lymphocytes % (A) 21 %; MCH 25.7 pg (25.0-35.0); MCHC 30.5 g/dL (31.0-37.0); MCV 84.5 fL (80.0-100.0); Mean Platelet Volume 8.2; Monocytes # (A) 0.5 k/uL (0-1.0); Monocytes % (A) 6 %; Neutrophils # (A) 5.5 k/uL (1.3-7.7); Neutrophils % (A) 69 %; Platelet Count 150 k/uL (150-450); RBC 5.25 m/uL (4.30-5.90); RDW 16.7 % (11.5-15.5)
[2023-11-21 03:00] LABS: ALT 26 U/L (4-49); AST 39 U/L (17-59); African American GFR (CKD) >90 (>60 ml/min/1.73 sqM); Albumin 3.7 g/dL (3.5-5.0); Alkaline Phosphatase 96 U/L (38-126); Anion Gap 9 mmol/L; Blood Urea Nitrogen 14 mg/dL (9-20); Calcium 9.2 mg/dL (8.4-10.2); Carbon Dioxide 18 mmol/L (22-30); Chloride 112 mmol/L (98-107); Glucose 149 mg/dL (74-99); Magnesium 1.9 mg/dL (1.6-2.3); Non-African American GFR(CKD) >90 (>60 ml/min/1.73 sqM); Phosphorus 3.1 mg/dL (2.5-4.5); Potassium 3.9 mmol/L (3.5-5.1); Sodium 139 mmol/L (137-145); Total Bilirubin 0.6 mg/dL (0.2-1.3); Total Protein 6.2 g/dL (6.3-8.2)
[2023-11-21] MEDS: SODIUM CHLORIDE 0.9% 1,000 ML IV ONE (04:41)
[2023-11-21] MEDS: INSULIN ASPART (NovoLOG) 100 UNIT/ML VIAL SQ SCH (06:34)
[2023-11-21 06:35] LABS: Glucose,Whole Blood 142 mg/dL (70-110)
--- NOTE | 2023-11-21 08:55 | P.PN ---
Subjective Progress Note Date: 11/21/23 Hospital course: Patient is a pleasant 73-year-old male with a past medical history of CAD status post stenting, atrial fibrillation on anticoagulation with Xarelto, hypertension, hyperlipidemia, hypothyroidism, GERD, insulin-dependent diabetes mellitus, and colon cancer status post bowel resection and chemotherapy in remission since 2017. He presented to the emergency department with a chief complaint of "feeling impending doom". Patient reports severe anxiety and struggling with his thoughts stating he fears the worst and feels something bad is about to happen and has been seen by his doctors at [facility] and diagnosed with anxiety and started on multiple medications. However, patient reports over the past 2 days he has been experiencing left-sided facial numbness and tingling along with numbness and tingling of left hand. Patient reports this waxes and wanes and is currently not present but patient states this has significantly worsened his anxiety and he cannot help the feeling of impending doom coming up on him. On arrival to our facility, patient underwent evaluation in the emergency department. Vital signs upon arrival show blood pressure 192/85, heart rate 82, respiratory rate 18, temp 97.4 F, and SpO2 of 96% on room air. EKG was completed showing atrial fibrillation with a controlled ventricular rate of 74 bpm and frequent PVCs. CT brain was completed negative for acute intracranial process. Labs completed and reviewed. CBC showing thrombocytopenia with platelet count of 142 otherwise normal findings. C oagulation profile normal findings. BMP showing mild hyperchloremia with chloride of 108 otherwise normal findings. Blood glucose was elevated at 248. Initial lactate was 3.7. Troponin was negative at less than 0.012. Urinalysis negative for infection. Patient was admitted under services with consultation to neurology and psychiatry for evaluation. Physical exam: Vital signs reviewed and stable. General: Nontoxic, no distress and appears stated age. Derm: Skin warm and dry, normal coloration for ethnicity. Head: Atraumatic, normocephalic and symmetric. Eyes: EOMs intact, no lid lag, and anicteric sclera Mouth: no lip lesions, mucus membranes moist Cardiovascular: Irregularly irregular, positive posterior tibial pulses bilaterally, and cap refill < 2 seconds. Lungs: Respirations even, regular, and unlabored on room air. Lungs CTA bilaterally, no rhonchi, no rales, no wheezing, and no accessory muscle usage. Abdominal: soft, nontender to palpation, no guarding, no appreciable organomega ly Ext: ROM intact. No gross muscle atrophy, no edema, no contractures Neuro: Speech clear, face symmetrical and CN II-XII grossly intact with no noted focal neuro deficits Psych: Alert and oriented to person, place, time, and situation. Patient very anxious upon examination. Assessment and Plan of Care: Left-sided facial and hand paresthesias Severe Anxiety with depression Migraine headache -Neurology consulted and discussed plan of care with neurologist recommending patient undergo MRI and EEG -Psychiatry consulted secondary to reports of severe worsening anxiety. Appreciate recommendations -Neurochecks every 4 hours. -Telemetry monitoring -Aspirin 324 mg p.o. x 1 dose followed by 81 mg daily along with pravastatin 40 mg nightly. -Patient to continue Restoril 22.5 mg nightly, Zoloft 200 mg daily, Remeron 45 mg nightly, and Ativan 2 mg twice daily. -Patient reported persistent headaches throughout the night and this morning, order placed for migraine cocktail consisting of Toradol 15 mg IVP x 1 dose, Compazine 10 mg IVP x 1 dose and Benadryl 25 mg IVP x 1 dose. -Will obtain a D-dimer secondary to patient's repeated reports of feeling impending doom -TSH with reflex free T4 to be completed. Diabetes mellitus with hyperglycemia -Continue Levemir 15 units nightly and patient placed on glycemic protocol with NovoLog sliding scale. Lactic acidosis. Resolved after IV fluid hydration. Chronic atrial fibrillation Hypertension Hyperlipidemia History of CAD status post stenting -Patient free from chest pain, palpitations, or reports of shortness of breath. -Troponin negative at less than 0.012 and EKG showing atrial fibrillation with a controlled ventricular response at 74 bpm with frequent PVCs.. -Order placed for aspirin 324 mg p.o. x 1 dose and patient to continue daily medication regimen with aspirin 81 mg daily, amlodipine 10 mg daily, lisinopril 10 mg daily, pravastatin 40 mg nightly, and Xarelto 20 mg nightly. Thrombocytopenia, chronic and stable -Platelet count 150 this morning. GERD Continue home GI prophylaxis with Protonix 40 mg p.o. twice daily and Pepcid 20 mg daily. Data and imaging reviewed: Vital signs reviewed. Blood pressure 157/87, heart rate 71, respiratory rate 18, temp 97.5 F, and SpO2 of 98% on 2 L O2. Morning labs reviewed. CBC unremarkable with WBC count of 8.0, hemoglobin 13.5, platelet count of 150. BMP showing mild hyperchloremia with chloride of 112 and bicarb of 18 with anion gap of 9. Blood glucose 149. Repeat morning lactate 2.0. Magnesium 1.9. Liver profile unremarkable. CODE STATUS: Full code DVT prophylaxis: Xarelto Anticipated discharge date: Pending clinical course Anticipated discharge place: Home Patient was seen independently by Nurse Pracitioner. This document was prepared using Quisk dictation software. Please allow for errors in atomic physics professor, while rare they do occur. Abdi Baker NP rendered care for this patient independently, reviewed the findings and plan as documented in the note above. I did not physically speak with or examine the patient on this date. Objective - Vital Signs Vital signs: Vital Signs Temp 97.4 F L 11/21/23 02:00 Pulse 69 11/21/23 04:10 Resp 18 11/21/23 04:10 BP 142/73 11/21/23 04:10 Pulse Ox 97 11/21/23 04:10 FiO2 21 11/21/23 02:31 Intake & Output 11/20/23 11/21/23 11/21/23 18:59 06:59 18:59 Weight 107.955 kg Other: Voiding Method Urinal - Labs CBC & Chem 7: 11/21/23 02:02 11/21/23 02:02 Labs: Abnormal Lab Results - Last 24 Hours (Table) 11/20/23 11/20/23 11/20/23 Range/Units 18:40 19:05 19:05 MCHC 30.3 L (31.0-37.0) g/dL RDW 16.5 H (11.5-15.5) % Plt Count 142 L (150-450) k/uL Chloride (98-107) mmol/L Carbon Dioxide (22-30) mmol/L Glucose (74-99) mg/dL POC Glucose (mg/dL) 294 H (70-110) mg/dL Plasma Lactic Acid Iván (0.7-2.0) mmol/L Total Protein (6.3-8.2) g/dL Urine Glucose (UA) 4+ H (Negative) 11/20/23 11/20/23 11/20/23 Range/Units 19:05 19:05 22:06 MCHC (31.0-37.0) g/dL RDW (11.5-15.5) % Plt Count (150-450) k/uL Chloride 108 H (98-107) mmol/L Carbon Dioxide (22-30) mmol/L Glucose 248 H (74-99) mg/dL POC Glucose (mg/dL) (70-110) mg/dL Plasma Lactic Acid Iván 3.7 H* 2.2 H* (0.7-2.0) mmol/L Total Protein (6.3-8.2) g/dL Urine Glucose (UA) (Negative) 11/21/23 11/21/23 11/21/23 Range/Units 02:02 02:02 02:02 MCHC 30.5 L (31.0-37.0) g/dL RDW 16.7 H (11.5-15.5) % Plt Count (150-450) k/uL Chloride 112 H (98-107) mmol/L Carbon Dioxide 18 L (22-30) mmol/L Glucose 149 H (74-99) mg/dL POC Glucose (mg/dL) (70-110) mg/dL Plasma Lactic Acid Iván 3.9 H* (0.7-2.0) mmol/L Total Protein 6.2 L (6.3-8.2) g/dL Urine Glucose (UA) (Negative) 11/21/23 11/21/23 Range/Units 06:19 06:33 MCHC (31.0-37.0) g/dL RDW (11.5-15.5) % Plt Count (150-450) k/uL Chloride (98-107) mmol/L Carbon Dioxide (22-30) mmol/L Glucose (74-99) mg/dL POC Glucose (mg/dL) 142 H (70-110) mg/dL Plasma Lactic Acid Iván 2.1 H* (0.7-2.0) mmol/L Total Protein (6.3-8.2) g/dL Urine Glucose (UA) (Negative)
[2023-11-21] MEDS: diphenhydrAMINE 50 MG/ML 1 ML VIAL IVP STA (09:13)
[2023-11-21] MEDS: PROCHLORPERAZINE INJ 10 MG/2 ML VIAL IVP STA (09:13)
[2023-11-21] MEDS: KETOROLAC 15 MG/ML 1 ML VIAL IVP STA (09:13)
[2023-11-21 11:28] LABS: Glucose,Whole Blood 138 mg/dL (70-110)
[2023-11-21] MEDS ORDERED: ASPIRIN 81 MG PO SCH (11:45)
--- NOTE | 2023-11-21 13:24 | P.CN ---
Psychiatric Consult - . Consult date: 11/21/23 Consult:: 11/21/23 12:51 IDENTIFYING DATA: This patient is a 73-year-old male, currently lives with his , he has no kids, he collect Social Security and a [employer] pension REASON FOR REFERRAL: Psychiatry was consulted for psychiatric evaluation HISTORY OF PRESENT ILLNESS: The patient presented to the hospital initially on 11/19 for reports of severe anxiety, altered mental status and also right-sided facial weakness. Patient also was demonstrating poor balance and ability to walk. CT scan of the brain was negative, neurology is consulted and following along. Patient was sitting at the side of the bed, hard of hearing however was appreciative and agreeable to speak to ghost writer. He claims that he is feeling fairly anxious, claims that he has been diagnosed with "JANE" in the past. States that he has had an increase in the anxiety in the past several weeks and months. States that he was feeling confused and having headaches when he came into the hospital. States that he has mild depression at this time, claims that his sleep is usually fair and appetite is fair when he is on his medications.. At this time patient denies any suicidal or homical ideations, intent or plan. Patient denies any auditory, visual hallucinations and denies any paranoia or delusions. Patients admits to using no recreational drugs or cigarettes PAST PSYCHIATRIC HISTORY: Patient has a a history of generalized anxiety disorder and depression. Patient is currently on Zoloft, Remeron, Restoril, Atarax, Ativan. Patient denies any previous psychiatric hospitalizations. He states that he currently follows up with his psychiatrist through the [facility] Dr. Burgos. Patient denies any history of suicide attempts in the past. PAST MEDICAL HISTORY: Past Medical History: Atrial Fibrillation, Coronary Artery Disease (CAD), Cancer, Heart Failure, Diabetes Mellitus, GERD/Reflux, Hyperlipidemia, Hypertension, Myocardial Infarction ([place]), Sleep Apnea/CPAP/BIPAP, Thyroid Disorder Additional Past Medical History / Comment(s): gout, skin ca, colon cancer with resection and chemo (2016)., c-pap machine., ulcer on side of right great toe- receives wound tx ., BPH., gall bladder pain. Last Myocardial Infarction Date:: 2006 History of Any Multi-Drug Resistant Organisms: MRSA Date of last positivie culture/infection: 2022 MDRO Source:: right great toe Past Surgical History: Appendectomy, Bowel Resection, Heart Catheterization With Stent, Orthopedic Surgery Additional Past Surgical History / Comment(s): skin ca removed, lt shoulder surgery ,rt knee surgery, deviated septum surgery Past Anesthesia/Blood Transfusion Reactions: No Reported Reaction Date of Last Stent Placement:: 2006 Past Psychological History: Anxiety, Bipolar, Depression Smoking Status: Former smoker Past Alcohol Use History: Occasional Past Drug Use History: None Reported ALLERGIES: as per EMR. CHEMICAL DEPENDENCY HISTORY: as per HPI. FAMILY PSYCHIATRIC/SUBSTANCE USE HISTORY: Denies SOCIAL HISTORY: Patient was born and raised in [place]. Claims that he completed high school and did some college. States that he was in the [employer] from 1970 1971. He states that he is currently collecting a [employer] pension and also social she also Social Security. Currently lives with his does not have any kids, denies any legal history. MENTAL STATUS EXAM: General Appearance: Patient appears to be mildly overweight, curly hair, stated age is alert, fairly anxious, attempts to be cooperative. Patient appears to have fair hygiene and grooming wearing hospital gown with fair eye contact. Behavior: Patient is calmly lying in bed without any agitated behavior. Attempts to cooperate. Speech: Patient's speech is fluent and nonpressured. Anxious tone Mood/Affect: Patient reports their mood is "mostly anxious", affect is congruent Suicidality/Homicidality: Patient denies having any suicidal or homicidal ideation intent or plan. Perceptions: Patient denies any visual hallucinations and denies any auditory hallucinations Though content/process: There is no evidence of any delusional thought content and thought process is linear and goal-directed. Focused on his medications and treatment. Memory and concentration: AOX3, grossly intact for the purposes of this session. Can spell "WORLD" backwards Judgment and insight: fair IMPRESSIONS: Generalized anxiety disorder Depressive disorder unspecified PLAN: -At this time patient DOES NOT meet criteria for inpatient psychiatric admission. -Would recommend the following medication changes/additions: Spoke with patient about the drawbacks of benzodiazepines and his medication Restoril for sleep and the likelihood of tolerance and possible overdose potential or abuse, suggested that this be gradually tapered off as an outpatient with his [place] psychiatrist. He is agreeable to start Seroquel 50 mg scheduled nightly for sleep/anxiety/mood adjunct, 25 mg twice daily as needed for anxiety/agitation, discontinued Remeron, continue with Zoloft 200 mg daily for mood/anxiety, added BuSpar 10 mg 3 times daily for anxiety, continue Atarax as needed. -Patient can continue [facility] up [facility] -Franchise Development Manager spoke with patient about substance abuse and the harmful effects on medical and mental health, patient verbally understood and agreed. -addiction social worker to provide patient substance use treatment resources including AA/NA meetings in the community. -Will continue to follow along if needed otherwise if patient is improving then will sign off. -Please contact with any questions. 11/21/23 13:17
[2023-11-21] MEDS: ASPIRIN 81 MG PO STA (13:38)
[2023-11-21] MEDS: FAMOTIDINE 20 MG TAB PO SCH (13:38)
[2023-11-21] MEDS: lisinopriL 10 MG TAB PO SCH (13:38)
[2023-11-21] MEDS: QUEtiapine 25 MG TAB PO STA (13:39)
[2023-11-21] MEDS: amLODIPine 10 MG TAB PO SCH (13:39)
[2023-11-21] MEDS: LORazepam 1 MG TAB PO SCH (13:39)
[2023-11-21] MEDS: SERTRALINE 100 MG TAB PO SCH (13:39)
--- NOTE | 2023-11-21 13:52 | US ---
EXAMINATION TYPE: US carotid duplex BILAT DATE OF EXAM: 11/21/2023 COMPARISON: NONE CLINICAL INDICATION: Male, 73 years old with history of stroke; stroke TECHNIQUE: Carotid duplex ultrasound examination. Indirect Doppler criteria was utilized. FINDINGS: EXAM MEASUREMENTS: RIGHT: Peak Systolic Velocity (PSV) cm/sec ----- Right CCA: 106.4 ----- Right ICA: 70.9 ----- Right ECA: 148 ICA/CCA ratio: 0.7 RIGHT: End Diastole cm/sec ----- Right CCA: 16 ----- Right ICA: 11.1 ----- Right ECA: 0 LEFT: Peak Systolic Velocity (PSV) cm/sec ----- Left CCA: 95 ----- Left ICA: 85.7 ----- Left ECA: 85.7 ICA/CCA ratio: 0.9 LEFT: End Diastole cm/sec ----- Left CCA: 7.2 ----- Left ICA: 25.3 ----- Left ECA: 0 VERTEBRALS (direction of flow): Right Vertebral: Antegrade Left Vertebral: Antegrade Rhythm: Normal HUMAN RESOURCES EXECUTIVE NOTES: No significant stenosis seen IMPRESSION: Criteria for Assigning % of Stenosis / Diameter reduction (Estimation based on the indirect measurements of the internal carotid artery velocities (ICA PSV). 1. Normal (no stenosis)=ICA PSV < 125 cm/s: ratio < 2.0: ICA EDV<40 cm/s. 2. Less than 50% stenosis=ICA PSV < 125 cm/s: ratio < 2.0: ICA EDV<40 cm/s. 3. 50 to 69% stenosis=ICA PSV of 125 to 230 cm/s: ration 2.0 ? 4.0: ICA EDV 40-100 cm/s. 4. Greater than 70% stenosis to near occlusion= ICA PSV > 230 cm/s: ratio > 4.0: ICA EDV > 100 cm/s. 5. Near occlusion= ICA PSV velocities may be low or undetectable: variable ratio and ICA EDV. 6. Total occlusion=unable to detect flow.
[2023-11-21 16:37] LABS: Glucose,Whole Blood 157 mg/dL (70-110)
[2023-11-21] MEDS: PANTOPRAZOLE 40 MG TABLET PO SCH (16:42)
[2023-11-21] MEDS: busPIRone HCl 10 MG TAB PO SCH (16:42)
--- NOTE | 2023-11-21 16:55 | P.CNNES ---
History of Present Illness Consult date: 11/21/23 Requesting physician: Alberto Guidry Reason for Consult: ams History of Present Illness: This a 73 year-old gentleman with history of atrial fibrillation on Xarelto, hypothyroidism, coronary artery disease status post stent, diabetes, history of colon cancer status post resection and chemotherapy in remission since 2017 who presented emergency department because of "feeling impeding doom". Patient has been having severe anxiety struggling with his thoughts and fears something is about to happen. He was evaluated by physician over at [place] and was diagnosed with anxiety and was started on multiple medication. He notified me he has been having some jaw issues for the last 1 to 2 years and in the last 1 year he feels like he has been having numbness over the right cheek region that is progressively getting worse. He was evaluated by a dentist he notified me and he stated that there is nothing wrong. He notified the primary team that he is having tingling over the left side of the face and tingling over the left hand but to me notified me at over the right side of the face. H she has a history of stroke which affected his 3rd cranial nerve in the past about probably 3 to 4 years ago. Also has been having headache over the frontal region over the last 3 months and he feels it is progressively getting worse and is throbbing denies any vomiting. Sometimes he has photophobia but denies any phonophobia. Some of the work-up during this hospital visit consisted of: Blood cell has been within normal limits. Plasma lactic acid vein as high as 3.9 minutes resolved. TSH is 1.750 Ammonia level is less than 9 Sodium, calcium, phosphorus, AST ALT are within normal limits. I reviewed the rest of the the lab workup. CT head is reported as no acute intracranial abnormality. I reviewed the CT and I agree there is no acute or subacute stroke. Review of Systems The positive and negative as per HPI. Past Medical History Past Medical History: Atrial Fibrillation, Coronary Artery Disease (CAD), Cancer, Heart Failure, Diabetes Mellitus, GERD/Reflux, Hyperlipidemia, Hypertension, Myocardial Infarction (VT), Sleep Apnea/CPAP/BIPAP, Thyroid Disorder Additional Past Medical History / Comment(s): gout, skin ca, colon cancer with resection and chemo (2017)., c-pap machine., ulcer on side of right great toe- receives wound tx ., BPH., gall bladder pain. Last Myocardial Infarction Date:: 2006 History of Any Multi-Drug Resistant Organisms: MRSA Date of last positivie culture/infection: 2022 MDRO Source:: right great toe Past Surgical History: Appendectomy, Bowel Resection, Heart Catheterization With Stent, Orthopedic Surgery Additional Past Surgical History / Comment(s): skin ca removed, lt shoulder surgery ,rt knee surgery, deviated septum surgery Past Anesthesia/Blood Transfusion Reactions: No Reported Reaction Date of Last Stent Placement:: 2006 Past Psychological History: Anxiety, Bipolar, Depression Smoking Status: Former smoker Past Alcohol Use History: Occasional Past Drug Use History: None Reported - Past Family History Father Family Medical History: Asthma, Hyperlipidemia Additional Family Medical History / Comment(s): at age 61. was a heavy smoker,prostate sx a week before he not sure what took him. Mother Family Medical History: Dementia Additional Family Medical History / Comment(s): at age 75 from alzheimers Medications and Allergies Home Medications Medication Instructions Recorded Confirmed Type Potassium Chloride [Klor-Con 20] 20 meq PO DAILY 01/15/14 11/21/23 History Pravastatin Sodium [Pravachol] 40 mg PO HS 01/15/14 11/21/23 History allopurinoL [Zyloprim] 100 mg PO HS 07/28/15 11/21/23 History Sertraline HCl [Zoloft] 200 mg PO DAILY 11/05/15 11/21/23 History Rivaroxaban [Xarelto] 20 mg PO HS 07/27/17 11/21/23 History Empagliflozin [Jardiance] 25 mg PO DAILY 06/10/21 11/21/23 History Famotidine 20 mg PO DAILY 06/10/21 11/21/23 History Insulin Glargine,Hum.rec.anlog 15 unit SQ HS 06/10/21 11/21/23 History [Lantus Solostar Pen] Pantoprazole [Protonix] 40 mg PO BID 06/10/21 11/21/23 History glipiZIDE [Glucotrol] 20 mg PO AC-BID 08/14/22 11/21/23 History Mirtazapine [Remeron] 45 mg PO HS 07/23/23 11/21/23 History Temazepam 7.5 mg PO HS 07/24/23 11/21/23 History Temazepam [Restoril] 15 mg PO HS 07/24/23 11/21/23 History Acetaminophen Tab [Tylenol] 1,000 mg PO Q6HR PRN #30 tablet 07/27/23 11/21/23 Rx hydrOXYzine HCL [Atarax] 10 mg PO QID PRN 08/06/23 11/21/23 History LORazepam [Ativan] 2 mg PO BID 08/11/23 11/21/23 History amLODIPine [Norvasc] 10 mg PO DAILY 11/21/23 11/21/23 History lisinopriL [Zestril] 10 mg PO DAILY 11/21/23 11/21/23 History Allergies Allergy/AdvReac Type Severity Reaction Status Date / Time clopidogrel bisulfate Allergy Rash/Hives Verified 11/21/23 10:11 [From Plavix] Sulfa (Sulfonamide Allergy Rash/Hives Verified 11/21/23 10:11 Antibiotics) gabapentin AdvReac Aggression, Verified 11/21/23 10:11 anxiety, mood swings metformin AdvReac Diarrhea Verified 11/21/23 10:11 morphine AdvReac Hallucinati Verified 11/21/23 10:11 ons pregabalin [From Lyrica] AdvReac Aggression, Verified 11/21/23 10:11 anxiety, mood swings Physical Examination - Vital Signs Vital Signs: Vital Signs Temp Pulse Pulse Resp BP BP Pulse Ox 11/21/23 14:00 97.6 F 62 18 149/79 95 11/21/23 10:26 70 18 94 L 11/21/23 08:00 97.5 F L 71 18 157/87 98 11/21/23 04:10 69 18 142/73 97 11/21/23 02:37 70 11/21/23 02:31 11/21/23 02:00 97.4 F L 70 19 174/82 95 11/20/23 22:48 97.5 F L 67 16 125/72 95 11/20/23 21:40 65 18 152/89 97 11/20/23 20:25 152/73 11/20/23 19:51 82 18 169/84 97 11/20/23 18:22 97.4 F L 82 18 192/85 96 FiO2 11/21/23 14:00 11/21/23 10:26 11/21/23 08:00 11/21/23 04:10 11/21/23 02:37 11/21/23 02:31 21 11/21/23 02:00 11/20/23 22:48 11/20/23 21:40 11/20/23 20:25 11/20/23 19:51 11/20/23 18:22 Intake and Output 11/21/23 11/21/23 11/21/23 06:59 14:59 22:59 Other: Voiding Method Urinal Toilet Urinal GENERAL: The patient is lying in bed and is not in acute distress. HENT: Supple neck. NEUROLOGICAL: Higher mental function: The patient is awake, alert, oriented to self, place and time. Patient is following commands. No aphasia and no neglect. Cranial nerves: The pupils are round, equal and reactive to light and accommodation. Visual major are full to confrontation throughout. Extraocular movement is intact no nystagmus is noted. Facial sensation is normal to touch throughout. The facial strength is normal throughout. Hearing is normal bilaterally to hand rub. Tongue is midline and moved [id number] without any difficulty. No dysarthria is noted. Shoulder shrug is normal bilaterally. Motor: The strength is 5 over 5 throughout. Normal tone and bulk. Cerebellum: Normal finger to nose bilaterally. Sensation: Sensation is normal to touch throughout. Reflexes (right/left): 2+ throughout except ankles are 1+. Plantars are downgoing bilaterally. Results - Laboratory Findings CBC and BMP: 11/21/23 02:02 11/21/23 02:02 Abnormal Lab Findings: Abnormal Labs 11/20/23 11/20/23 11/20/23 18:40 19:05 19:05 MCHC 30.3 L RDW 16.5 H Plt Count 142 L D-Dimer Chloride Carbon Dioxide Glucose POC Glucose (mg/dL) 294 H Plasma Lactic Acid Iván Total Protein Urine Glucose (UA) 4+ H 11/20/23 11/20/23 11/20/23 19:05 19:05 22:06 MCHC RDW Plt Count D-Dimer Chloride 108 H Carbon Dioxide Glucose 248 H POC Glucose (mg/dL) Plasma Lactic Acid Iván 3.7 H* 2.2 H* Total Protein Urine Glucose (UA) 11/21/23 11/21/23 11/21/23 02:02 02:02 02:02 MCHC 30.5 L RDW 16.7 H Plt Count D-Dimer Chloride 112 H Carbon Dioxide 18 L Glucose 149 H POC Glucose (mg/dL) Plasma Lactic Acid Iván 3.9 H* Total Protein 6.2 L Urine Glucose (UA) 11/21/23 11/21/23 11/21/23 06:19 06:33 11:27 MCHC RDW Plt Count D-Dimer Chloride Carbon Dioxide Glucose POC Glucose (mg/dL) 142 H 138 H Plasma Lactic Acid Iván 2.1 H* Total Protein Urine Glucose (UA) 11/21/23 11/21/23 12:47 16:34 MCHC RDW Plt Count D-Dimer 0.88 H Chloride Carbon Dioxide Glucose POC Glucose (mg/dL) 157 H Plasma Lactic Acid Iván Total Protein Urine Glucose (UA) Assessment and Plan Assessment: This is a 73-year-old gentleman with history of atrial fibrillation on Xarelto, diabetes mellitus, coronary artery disease status post stent, who was diagnosed by the [place] physician with and anxiety and presents to hospital because of feeling impeding doom. He is over the worst and feels something bad is about to happen. He has been complaining of facial numbness to me noted notify me he has been having facial numbness with jaw issues for the last 1 to 2 years on the right side progressively worse in the couple months but he notified the primary team that it is on the left side with left hand facial numbness and tingling. She is also complaining of headache. Facial and hand paresthesia and he notified me at over the right but notified the primary team is over the left. Rule out central process. CT head is negative for acute process. Cephalgia Anxiety Elevated lactic acid vein---resolved. Of stroke and notify me he had some stroke affecting the eye about 3 to 4 years ago History of atrial fibrillation on Xarelto Diabetes mellitus Hypertension Hyperlipidemia History of colon cancer status post resection and chemotherapy in 2017 Plan: Ordered MRI of the brain with and without Pursue with routine EEG Ordered ESR, vitamin B12 and folate I will pursue the CT angiography of the head and neck for any aneurysm because of his headache He was on Xarelto his home medication for A-fib. It seems that the patient was placed on aspirin daily. Will defer the use of aspirin to the primary team. Patient is on pravastatin 40 mg nightly. Psychiatry is consulted Will defer the rest of the medical management to primary and other specialist Plan discussed with the patient and the primary team nurse practitioner Thank for the consultation Time with Patient: Greater than 30
--- NOTE | 2023-11-21 20:54 | CT ---
EXAMINATION TYPE: CT angio head neck DATE OF EXAM: 11/21/2023 COMPARISON: 08/14/2022 HISTORY: 73-year-old male with Headache, rule out aneurysm or dissection TECHNIQUE: Contiguous axial scanning of the head and neck performed with IV Contrast, patient injecte d with 65 cc mL of Isovue 370. Coronal/sagittal reconstructions performed. 3-D reconstructions genera chai on a dedicated independent workstation. CT DLP: 773.2 mGycm Automated exposure control for dose reduction was used. FINDINGS: Neck: A couple nodules measuring up to 4 mm right upper lobe remain unchanged. Borderline enlarged caliber main right pulmonary artery up to 2.6 cm may reflect underlying pulmonary hypertension. There is conventional arch vessel branching anatomy. Dominant left vertebral artery. Otherwise, both vertebral arteries are patent throughout worse. The bilateral common carotid arteries are patent. The right internal carotid artery is patent with a tortuosity elongates upper cervical portion. The midportion of the left ICA is obscured by swallowing motion artifact. Otherwise, the remainder of the left AC pain with tortuosity of the upper cervical portion. Head: Dominant left vertebral artery. The V4 segment right vertebral artery becomes even more hypoplastic a fter the PICA takeoff. Otherwise, both vertebral and basilar arteries as well as the remainder of the posterior circulation are patent. The bilateral internal carotid arteries and remainder of the anterior circulation is patent. Hypoplas tic A1 segment left anterior cerebral artery. No aneurysmal change is seen. IMPRESSION: NECK: 1. DOMINANT LEFT VERTEBRAL ARTERY. 2. THE MID LEFT ICA IS OBSCURED DUE TO SWALLOWING MOTION ARTIFACT AND NOT ADEQUATELY ASSESSED. 3. OTHERWISE, WIDELY PATENT VERTEBRAL AND CAROTID ARTERIES OF THE NECK. HEAD: 4. NO LARGE VESSEL INTRACRANIAL ARTERIAL OCCLUSION, SIGNIFICANT STENOSIS, OR ANEURYSMAL CHANGE IS SEE N. 5. ANATOMIC VARIATION WITH HYPOPLASTIC V4 SEGMENT RIGHT VERTEBRAL ARTERY FOLLOWING THE PICA TAKEOFF A ND HYPOPLASTIC A1 SEGMENT LEFT FRAN.
[2023-11-21] MEDS ORDERED: TEMAZEPAM 7.5 MG CAP PO SCH (21:00)
[2023-11-21] MEDS ORDERED: MIRTAZAPINE 45 MG TABLET PO SCH (21:00)
[2023-11-21] MEDS: allopurinoL 100 MG TAB PO SCH (22:05)
[2023-11-21] MEDS: PRAVASTATIN SODIUM 40 MG TAB PO SCH (22:05)
[2023-11-21] MEDS: QUEtiapine 50 MG TAB PO SCH (22:05)
--- NOTE | 2023-11-21 22:52 | EEG ---
ELECTROENCEPHALOGRAM REPORT CLINICAL HISTORY: This is a 73-year-old gentleman with confusion and intermittent facial paresthesia. The video EEG is obtained to evaluate for seizure epileptiform activity. RELEVANT MEDICATION: Ativan. EEG TYPE: A routine 21-channel EEG with video using the 10/20 electrode placement system. DESCRIPTION: Wakefulness is only obtained. During awake state, the posterior-dominant rhythm consists of [id number] voltage of 9 hertz activity that is well modulated and well sustained. There is no physiological stage 2 sleep architecture. There is no focal slowing. Interictal and ictal is none. ACTIVATION PROCEDURE: Photic stimulation did not evoke a posterior driving response. There is no abnormality during the photic stimulation. Hyperventilation is not performed. CLINICAL INTERPRETATION: This is a normal routine EEG. There is no focal slowing, epileptiform discharge, or seizure on the EEG. A normal routine EEG does not rule out underlying epilepsy. Clinical correlation is recommended. BRIGITTE / TIM: [id number] /
[2023-11-21 23:09] LABS: Glucose,Whole Blood 151 mg/dL (70-110)
[2023-11-21] MEDS: TEMAZEPAM 15 MG CAP PO SCH (23:36)
[2023-11-21] MEDS: RIVAROXABAN 20 MG TAB PO SCH (23:54)
[2023-11-21] MEDS: INSULIN DETEMIR (LEVEMIR) 100 UNIT/ML SYR SQ SCH (23:54)
[2023-11-22 06:37] LABS: Glucose,Whole Blood 120 mg/dL (70-110)
[2023-11-22 07:51] LABS: Anisocytosis Slight; HCT 47.9 % (39.0-53.0); Hypochromasia Marked; MCH 24.6 pg (25.0-35.0); MCHC 29.2 g/dL (31.0-37.0); MCV 84.3 fL (80.0-100.0); Platelet Count 150 k/uL (150-450); Poikilocytosis Slight; RBC 5.69 m/uL (4.30-5.90); RDW 16.5 % (11.5-15.5); WBC 7.5 k/uL (3.8-10.6)
[2023-11-22 08:07] LABS: ALT 29 U/L (4-49); AST 44 U/L (17-59); African American GFR (CKD) >90 (>60 ml/min/1.73 sqM); Albumin 3.9 g/dL (3.5-5.0); Albumin/Globulin Ratio 1.6; Alkaline Phosphatase 89 U/L (38-126); Anion Gap 6 mmol/L; Blood Urea Nitrogen 9 mg/dL (9-20); Calcium 9.3 mg/dL (8.4-10.2); Carbon Dioxide 20 mmol/L (22-30); Chloride 113 mmol/L (98-107); Globulin 2.5 g/dL; Glucose 126 mg/dL (74-99); Non-African American GFR(CKD) >90 (>60 ml/min/1.73 sqM); Potassium 3.7 mmol/L (3.5-5.1); Sodium 139 mmol/L (137-145); Total Protein 6.4 g/dL (6.3-8.2)
[2023-11-22] MEDS: ASPIRIN 81 MG PO SCH (09:26)
[2023-11-22] MEDS: ACETAMINOPHEN TAB 325 MG TAB PO PRN (09:32)
--- NOTE | 2023-11-22 10:01 | P.PN ---
Subjective Progress Note Date: 11/22/23 Hospital course: Patient is a pleasant 73-year-old male with a past medical history of CAD status post stenting, atrial fibrillation on anticoagulation with Xarelto, hypertension, hyperlipidemia, hypothyroidism, GERD, insulin-dependent diabetes mellitus, and colon cancer status post bowel resection and chemotherapy in remission since 2017. He presented to the emergency department with a chief complaint of "feeling impending doom". Patient reports severe anxiety and struggling with his thoughts stating he fears the worst and feels something bad is about to happen and has been seen by his doctors at [place] and diagnosed with anxiety and started on multiple medications. However, patient reports over the past 2 days he has been experiencing left-sided facial numbness and tingling along with numbness and tingling of left hand. Patient reports this waxes and wanes and is currently not present but patient states this has significantly worsened his anxiety and he cannot help the feeling of impending doom coming up on him. On arrival to our facility, patient underwent evaluation in the emergency department. Vital signs upon arrival show blood pressure 192/85, heart rate 82, respiratory rate 18, temp 97.4 F, and SpO2 of 96% on room air. EKG was completed showing atrial fibrillation with a controlled ventricular rate of 74 bpm and frequent PVCs. CT brain was completed negative for acute intracranial process. Labs completed and reviewed. CBC showing thrombocytopenia with platelet count of 142 otherwise normal findings. C oagulation profile normal findings. BMP showing mild hyperchloremia with chloride of 108 otherwise normal findings. Blood glucose was elevated at 248. Initial lactate was 3.7. Troponin was negative at less than 0.012. Urinalysis negative for infection. Patient was admitted under services with consultation to neurology and psychiatry for evaluation. Physical exam: Patient was seen and fully evaluated at bedside this morning. He reports new onset diarrhea beginning last night. He reports a total of 5 episodes since last night. He reports it is yellow-green and loose to watery consistency. He denies any abdominal pain or cramping and denies any other complaints at this time. Patient's anxiety is slightly improved this morning and he appears more calm at baseline. Patient continues to report feelings of "impending doom" but states cannot describe why. Vital signs reviewed and stable. General: Nontoxic, no distress and appears stated age. Derm: Skin warm and dry, normal coloration for ethnicity. Head: Atraumatic, normocephalic and symmetric. Eyes: EOMs intact, no lid lag, and anicteric sclera Mouth: no lip lesions, mucus membranes moist Cardiovascular: Irregularly irregular, positive posterior tibial pulses bilaterally, and cap refill < 2 seconds. Lungs: Respirations even, regular, and unlabored on room air. Lungs CTA bilaterally, no rhonchi, no rales, no wheezing, and no accessory muscle usage. Abdominal: soft, nontender to palpation, no guarding, no appreciable organomeg crystal Ext: ROM intact. No gross muscle atrophy, no edema, no contractures Neuro: Speech clear, face symmetrical and CN II-XII grossly intact with no noted focal neuro deficits Psych: Alert and oriented to person, place, time, and situation. Patient pleasant and cooperative this morning, anxiety seems to have improved since admission. Assessment and Plan of Care: Right-sided facial and hand paresthesias Elevated D-dimer with reported feeling of impending doom Severe Anxiety with depression Migraine headache, resolved -Neurology consulted and discussed plan of care with neurologist recommending patient undergo MRI. -EEG was completed showing normal routine EEG with no evidence of focal slowing, epileptiform discharge, or seizure activity. -Psychiatry consulted secondary to reports of severe worsening anxiety. Reviewed documentation in chart, psychiatrist discontinued Remeron and recommending [facility] recommendations for gradual taper off of Restoril and Ativan and started patient on BuSpar 10 mg 3 times daily and Seroquel 50 mg nightly and 25 mg daily as needed for anxiety/agitation. -Neurochecks every 4 hours. -Telemetry monitoring -Continue 81 mg daily and pravastatin 40 mg nightly. -Patient to continue Restoril 15 mg nightly, Zoloft 200 mg daily, Ativan 2 mg twice daily, BuSpar 10 mg 3 times daily, Seroquel 50 mg nightly and 25 mg daily as needed for anxiety/agitation. -D-dimer slightly elevated at 0.88, with patient's reports of feeling of impending doom and slight elevation of D-dimer will obtain a CTA chest at this time. Patient is on anticoagulation with Xarelto. -TSH with reflex free T4 to be completed. New onset diarrhea -Possibly secondary to adverse effects of medication as patient was started on B uSpar 10 mg 3 times daily by psychiatry. Will rule out C. difficile and obtain a stool culture, however if negative and diarrhea continues we will discuss with psychiatry their recommendations. Recurrent cardiac pauses -Patient with chronic persistent atrial fibrillation with frequent PVCs and was noted to have recurrent cardiac pauses on telemetry. All appear to be less than 3 seconds, however we will obtain a repeat EKG and consult cardiology for fur ther evaluation. Diabetes mellitus with hyperglycemia -Continue Levemir 15 units nightly and patient placed on glycemic protocol with NovoLog sliding scale. Lactic acidosis. Resolved after IV fluid hydration. Chronic atrial fibrillation Hypertension Hyperlipidemia History of CAD status post stenting -Patient free from chest pain, palpitations, or reports of shortness of breath. -Troponin negative at less than 0.012 and EKG showing atrial fibrillation with a controlled ventricular response at 74 bpm with frequent PVCs.. -Order placed for aspirin 324 mg p.o. x 1 dose and patient to continue daily medication regimen with aspirin 81 mg daily, amlodipine 10 mg daily, lisinopril 10 mg daily, pravastatin 40 mg nightly, and Xarelto 20 mg nightly. Thrombocytopenia, chronic and stable -Platelet count 150 this morning. GERD Continue home GI prophylaxis with Protonix 40 mg p.o. twice daily and Pepcid 20 mg daily. Data and imaging reviewed: Vital signs reviewed. Blood pressure 165/79, heart rate 75, respiratory rate 18, temp 98.5 F, and SpO2 of 94% on room air. Morning labs reviewed. CBC showing no significant abnormalities. BMP showing hyperchloremia with chloride of 113, bicarb of 20 and anion gap of 6. Blood glucose 126. Magnesium 2.0. Liver profile unremarkable. EEG was completed and report reviewed showing normal routine EEG with no evidence of focal slowing, epileptiform discharge, or seizure activity. CODE STATUS: Full code DVT prophylaxis: Xarelto Anticipated discharge date: Pending clinical course, awaiting completion of MRI. Anticipated discharge place: Home Patient was seen independently by Nurse Pracitioner. This document was prepared using [employer] dictation software. Please allow for errors in veneer glue spreader, while rare they do occur. Abdi Baker NP rendered care for this patient independently, reviewed the findings and plan as documented in the note above. I did not physically speak with or examine the patient on this date. Objective - Vital Signs Vital signs: Vital Signs Temp 97.5 F L 11/21/23 23:05 Pulse 71 11/21/23 23:05 Resp 20 11/21/23 23:05 BP 157/77 11/21/23 23:05 Pulse Ox 95 11/21/23 23:05 FiO2 21 11/22/23 00:24 Intake & Output 11/21/23 11/22/23 11/22/23 18:59 06:59 18:59 Output Total 300 Balance -300 Weight 107.955 kg Output: Urine 300 Other: Voiding Method Toilet Toilet Urinal Urinal - Labs CBC & Chem 7: 11/22/23 06:58 11/22/23 06:58 Labs: Abnormal Lab Results - Last 24 Hours (Table) 11/21/23 11/21/23 11/21/23 Range/Units 11:27 12:47 16:34 MCH (25.0-35.0) pg MCHC (31.0-37.0) g/dL RDW (11.5-15.5) % D-Dimer 0.88 H (<0.60) mg/L FEU Chloride (98-107) mmol/L Carbon Dioxide (22-30) mmol/L Glucose (74-99) mg/dL POC Glucose (mg/dL) 138 H 157 H (70-110) mg/dL 11/21/23 11/22/23 11/22/23 Range/Units 23:08 06:36 06:58 MCH 24.6 L (25.0-35.0) pg MCHC 29.2 L (31.0-37.0) g/dL RDW 16.5 H (11.5-15.5) % D-Dimer (<0.60) mg/L FEU Chloride (98-107) mmol/L Carbon Dioxide (22-30) mmol/L Glucose (74-99) mg/dL POC Glucose (mg/dL) 151 H 120 H (70-110) mg/dL 11/22/23 Range/Units 06:58 MCH (25.0-35.0) pg MCHC (31.0-37.0) g/dL RDW (11.5-15.5) % D-Dimer (<0.60) mg/L FEU Chloride 113 H (98-107) mmol/L Carbon Dioxide 20 L (22-30) mmol/L Glucose 126 H (74-99) mg/dL POC Glucose (mg/dL) (70-110) mg/dL
[2023-11-22 11:37] LABS: Glucose,Whole Blood 159 mg/dL (70-110)
--- NOTE | 2023-11-22 15:30 | P.PN ---
Subjective Progress Note Date: 11/22/23 I am following-up with patient and is at bedside and she did confirm that patient has been having paresthesia over the right face with jaw issues. Patient denies any new neurological issues. Headache has improved. Objective - Vital Signs Vital signs: Vital Signs Temp 98.5 F 11/22/23 07:05 Pulse 75 11/22/23 07:05 Resp 18 11/22/23 07:05 BP 165/79 11/22/23 07:05 Pulse Ox 94 L 11/22/23 07:05 FiO2 21 11/22/23 00:24 Intake & Output 11/21/23 11/22/23 11/22/23 18:59 06:59 18:59 Output Total 300 Balance -300 Weight 107.955 kg Output: Urine 300 Other: Voiding Method Toilet Toilet Urinal Urinal - Exam GENERAL: The patient is sitting on side of bed and is not in acute distress. HENT: Supple neck. NEUROLOGICAL: Higher mental function: The patient is awake, alert, oriented to self, place and time. Patient is following commands. No aphasia and no neglect. Cranial nerves: The pupils are round, equal and reactive to light. Visual major are full to confrontation throughout. Extraocular movement is intact no nystagmus is noted. Facial sensation is normal to touch throughout. The facial strength is normal throughout. Hearing is severely decreased bilaterally to hand rub (chronic). Tongue is midline and moved [id number] without any difficulty. No dysarthria is noted. Shoulder shrug is normal bilaterally. Motor: The strength is 5 over 5 throughout. Normal tone and bulk. Cerebellum: Normal finger to nose bilaterally. Sensation: Sensation is normal to touch throughout. Some of the work-up during this hospital visit consisted of: Blood cell has been within normal limits. Plasma lactic acid vein as high as 3.9 minutes resolved. TSH is 1.750 ESR 9 Ammonia level is less than 9 Vitamin B12: 438 Serum folate: 12.60 Sodium, calcium, phosphorus, AST ALT are within normal limits. CT head is reported as no acute intracranial abnormality. I reviewed the CT and I agree there is no acute or subacute stroke. Routine EEG: Is normal. Carotid duplex: And report does not have any note in impression CTA head: Is reported as no large vessel intracranial arterial occlusion, significant stenosis or aneurysm changes seen. Anatomic variation with hypoplastic V4 segment right vertebral artery following PICA takeoff and a hypoplastic A1 segment left FRAN. CTA neck: Dominant left vertebral artery. The mid left ICA is obscured due to swallowing motion artifact and not adequate assessed. Otherwise widely patent vertebral and carotid artery of the neck. - Labs CBC & Chem 7: 11/22/23 06:58 11/22/23 06:58 Labs: Abnormal Lab Results - Last 24 Hours (Table) 11/21/23 11/21/23 11/22/23 Range/Units 16:34 23:08 06:36 MCH (25.0-35.0) pg MCHC (31.0-37.0) g/dL RDW (11.5-15.5) % Chloride (98-107) mmol/L Carbon Dioxide (22-30) mmol/L Glucose (74-99) mg/dL POC Glucose (mg/dL) 157 H 151 H 120 H (70-110) mg/dL 11/22/23 11/22/23 11/22/23 Range/Units 06:58 06:58 11:36 MCH 24.6 L (25.0-35.0) pg MCHC 29.2 L (31.0-37.0) g/dL RDW 16.5 H (11.5-15.5) % Chloride 113 H (98-107) mmol/L Carbon Dioxide 20 L (22-30) mmol/L Glucose 126 H (74-99) mg/dL POC Glucose (mg/dL) 159 H (70-110) mg/dL Assessment and Plan Assessment: This is a 73-year-old gentleman with history of atrial fibrillation on Xarelto, diabetes mellitus, coronary artery disease status post stent, who [facility] with and anxiety and presents to hospital because of feeling impeding doom. He is over the worst and feels something bad is about to happen. He has been complaining of facial numbness to me noted notify me he has been having facial numbness with jaw issues for the last 1 to 2 years on the right side progressively worse in the couple months hand facial numbness and tingling. She is also complaining of headache. Facial and hand paresthesia and he notified me at over the right and conf irmed over the right. Rule out central process. CT head is negative for acute process. CTA head/neck is negative. Cephalgia--improved. ESR is normal. Anxiety Elevated lactic acid vein---resolved. History of stroke and notify me he had some stroke affecting the eye about 3 to 4 years ago History of atrial fibrillation on Xarelto Diabetes mellitus Hypertension Hyperlipidemia History of colon cancer status post resection and chemotherapy in 2017 Plan: MRI of the brain with and without pending. He was on Xarelto his home medication for A-fib. It seems that the patient was placed on aspirin 81mgdaily. Will defer the use of aspirin to the primary team. Patient is on pravastatin 40 mg nightly. Psychiatry is consulted Will defer the rest of the medical management to primary and other specialist Plan discussed with the patient, his who is at bedside and primary team nurse practitioner. Time with Patient: Less than 30
--- NOTE | 2023-11-22 15:51 | CT ---
EXAMINATION TYPE: CT chest angio for PE CT DLP: 827.3 mGycm, Automated exposure control for dose reduction was used. DATE OF EXAM: 11/22/2023 3:16 PM COMPARISON: CT 02/21/2023 CLINICAL INDICATION:Male, 73 years old with history of Elevated d-dimer reports feeling of impending doom; Elevated d-dimer reports feeling of impending doom TECHNIQUE/CONTRAST: CTA scan of the thorax is performed with IV Contrast, patient injected with 100 mL of Isovue 370, MIP images are created and reviewed these are created on a separate workstation.. FINDINGS: Pulmonary Artery: There is no evidence for a filling defect within the pulmonary vasculature to sugge st acute pulmonary embolism. The pulmonary artery is of normal size. Lungs/Pleura: Scattered pulmonary nodules right upper lobe measuring 4 mm additional nodules seen sca ttered throughout the remainder of the lungs No evidence of focal consolidation, pleural effusion or pneumothorax. Airway: Large airways are patent. Heart: The heart is mildly enlarged for size. Vasculature: No evidence of aortic aneurysm. Mediastinum: No gross evidence of adenopathy. Small hiatal hernia. Musculoskeletal: No acute osseous abnormalities Soft Tissues/lymph nodes: Unremarkable. Lower neck: No significant findings. Upper Abdomen: Diffuse low-attenuation to the liver parenchyma.. IMPRESSION: 1. No evidence of pulmonary embolism. 2.Scattered pulmonary nodules as seen on prior CT 02/21/2023. No new or enlarging pulmonary nodules. 3. Mild Cardiomegaly. 4. Hepatic steatosis.
[2023-11-22 17:04] LABS: Glucose,Whole Blood 176 mg/dL (70-110)
[2023-11-22 20:50] LABS: Glucose,Whole Blood 195 mg/dL (70-110)
[2023-11-23 06:19] LABS: Glucose,Whole Blood 156 mg/dL (70-110)
--- NOTE | 2023-11-23 08:55 | P.CRDCN ---
History of Present Illness History of present illness: HISTORY OF PRESENT ILLNESS: This is a 73-year-old male with a past medical history significant for coronary artery disease, permanent atrial fibrillation, hyperlipidemia, diabetes, GERD, and anxiety. 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 We have been asked to see the patient in consultation for pauses on telemetry. Patient examined at the bedside. Patient initially presented to hospital with complaints of " feeling impending doom". He does report increased anxiety re cently. He reports having left-sided facial numbness and tingling and also of his left hand. He states he is feeling much better this morning. He denies any chest pain or pressure. Telemetry reveals atrial fibrillation with controlled ventricular rate. Patient has had no significant pauses greater than 3 seconds. He does have frequent PVCs on telemetry. He denies any episodes of syncope. DIAGNOSTICS: - EKG reveals atrial fibrillation with controlled ventricular rate. PVCs. - Carotid Doppler: Negative for significant stenosis - EEG: Negative for seizure activity - CT angio: Dominant left vertebral artery. Mid left ICA is obscured due to swallowing motion artifact and not adequately assessed. Otherwise widely patent vertebral and carotid arteries of the neck. No large vessel intracranial or arterial occlusion, significant stenosis, or aneurysmal changes seen. - Laboratory data: WBC 7.5. Hemoglobin 14.0. Platelet count 150. Sodium 139. Potassium 3.7. BUN 9. Creatinine 0.75. TSH 1.750. - Current home cardiac medications include Xarelto 20 mg at night, Pravachol 20 mg at night, amlodipine 10 mg daily, lisinopril 10 mg daily. - Most recent echocardiogram obtained in July 2023 revealed ejection fraction 60-65%, trace MR - Lexiscan stress test performed in November 2018 was negative for ischemia REVIEW OF SYSTEMS: At the time of my exam: CONSTITUTIONAL: Denies fever or chills. HEENT: Denies blurred vision, vision changes, or eye pain. Denies hemoptysis CARDIOVASCULAR: Denies chest pain. Denies orthopnea. Denies PND. Denies palpitations RESPIRATORY: Denies shortness of breath. GASTROINTESTINAL: Denies abdominal pain. Denies nausea or vomiting. HEMATOLOGIC: Denies bleeding disorders. GENITOURINARY: Denies any blood in urine. SKIN: Denies pruitis. Denies rash. PHYSICAL EXAM: VITAL SIGNS: Reviewed. GENERAL: Well-developed in no acute distress. HEENT: Head is normocephalic. Pupils are equal, round. Sclerae anicteric. Mucous membranes of the mouth are moist. Neck supple. No JVD or thyromegaly LUNGS: Respirations even and unlabored. Lungs essentially clear to auscultation bilaterally. HEART: Irregular rate and rhythm. S1 and S2 heard. ABDOMEN: Soft. Nondistended. Nontender. EXTREMITIES: Normal range of motion. No clubbing or cyanosis. Peripheral pul ses intact. No lower extremity edema NEUROLOGIC: Awake and alert. Oriented x 3. ASSESSMENT: Left-sided facial and hand numbness Severe anxiety, improved Permanent atrial fibrillation with no significant pauses noted Frequent PVCs Coronary artery disease with previous PCI to the LAD, 2006, in [place] Hypertension Hyperlipidemia Diabetes Obesity: BMI 34.1 PLAN: No need to repeat echo as this was performed in 07/2023 TSH checked and within normal limits at 1.750. Telemetry reviewed without any significant pauses noted Patient is currently not on a beta-gabbi Continue telemetry monitoring Patient is currently stable from a cardiac standpoint Further recommendations pending patient course Nurse practitioner note has been reviewed by physician. Signing provider agrees with the documented findings, assessment, and plan of care documented by MACHINE [employer]ER as a scribe. Past Medical History Past Medical History: Atrial Fibrillation, Coronary Artery Disease (CAD), Cancer, Heart Failure, Diabetes Mellitus, GERD/Reflux, Hyperlipidemia, Hypertension, Myocardial Infarction (NE), Sleep Apnea/CPAP/BIPAP, Thyroid Disorder Additional Past Medical History / Comment(s): gout, skin ca, colon cancer with resection and chemo (2017)., c-pap machine., ulcer on side of right great toe- receives wound tx ., BPH., gall bladder pain. Last Myocardial Infarction Date:: 2006 History of Any Multi-Drug Resistant Organisms: MRSA Date of last positivie culture/infection: 2022 MDRO Source:: right great toe Past Surgical History: Appendectomy, Bowel Resection, Heart Catheterization With Stent, Orthopedic Surgery Additional Past Surgical History / Comment(s): skin ca removed, lt shoulder surgery ,rt knee surgery, deviated septum surgery Past Anesthesia/Blood Transfusion Reactions: No Reported Reaction Date of Last Stent Placement:: 2006 Past Psychological History: Anxiety, Bipolar, Depression Smoking Status: Former smoker Past Alcohol Use History: Occasional Additional Past Alcohol Use History / Comment(s): started smoking age 20- quit s marilou year maybe total 3 packs in that time Past Drug Use History: None Reported Additional Drug Use History / Comment(s): past use of cbd gummies. - Past Family History Father Family Medical History: Asthma, Hyperlipidemia Additional Family Medical History / Comment(s): at age 61. was a heavy smoker,prostate sx a week before he not sure what took him. Mother Family Medical History: Dementia Additional Family Medical History / Comment(s): at age 75 from alzheimers Medications and Allergies Home Medications Medication Instructions Recorded Confirmed Type Potassium Chloride [Klor-Con 20] 20 meq PO DAILY 01/15/14 11/21/23 History Pravastatin Sodium [Pravachol] 40 mg PO HS 01/15/14 11/21/23 History allopurinoL [Zyloprim] 100 mg PO HS 07/28/15 11/21/23 History Sertraline HCl [Zoloft] 200 mg PO DAILY 11/05/15 11/21/23 History Rivaroxaban [Xarelto] 20 mg PO HS 07/27/17 11/21/23 History Empagliflozin [Jardiance] 25 mg PO DAILY 06/10/21 11/21/23 History Famotidine 20 mg PO DAILY 06/10/21 11/21/23 History Insulin Glargine,Hum.rec.anlog 15 unit SQ 06/10/21 11/21/23 History [Lantus Solostar Pen] Pantoprazole [Protonix] 40 mg PO BID 06/10/21 11/21/23 History glipiZIDE [Glucotrol] 20 mg PO AC-BID 08/14/22 11/21/23 History Mirtazapine [Remeron] 45 mg PO HS 07/23/23 11/21/23 History Temazepam 7.5 mg PO HS 07/24/23 11/21/23 History Temazepam [Restoril] 15 mg PO HS 07/24/23 11/21/23 History Acetaminophen Tab [Tylenol] 1,000 mg PO Q6HR PRN #30 tablet 07/27/23 11/21/23 Rx hydrOXYzine HCL [Atarax] 10 mg PO QID PRN 08/06/23 11/21/23 History LORazepam [Ativan] 2 mg PO BID 08/11/23 11/21/23 History amLODIPine [Norvasc] 10 mg PO DAILY 11/21/23 11/21/23 History lisinopriL [Zestril] 10 mg PO DAILY 11/21/23 11/21/23 History Allergies Allergy/AdvReac Type Severity Reaction Status Date / Time clopidogrel bisulfate Allergy Rash/Hives Verified 11/21/23 10:11 [From Plavix] Sulfa (Sulfonamide Allergy Rash/Hives Verified 11/21/23 10:11 Antibiotics) gabapentin AdvReac Aggression, Verified 11/21/23 10:11 anxiety, mood swings metformin AdvReac Diarrhea Verified 11/21/23 10:11 morphine AdvReac Hallucinati Verified 11/21/23 10:11 ons pregabalin [From Lyrica] AdvReac Aggression, Verified 11/21/23 10:11 anxiety, mood swings Physical Exam Vitals: Vital Signs Temp Pulse Pulse Resp BP BP Pulse Ox 11/22/23 07:05 98.5 F 75 18 165/79 94 L 11/22/23 00:24 11/21/23 23:05 97.5 F L 71 20 157/77 95 11/21/23 22:45 59 L 18 145/74 96 11/21/23 19:02 74 18 148/80 98 11/21/23 16:49 74 18 136/76 96 11/21/23 14:00 97.6 F 62 18 149/79 95 FiO2 11/22/23 07:05 11/22/23 00:24 21 11/21/23 23:05 11/21/23 22:45 11/21/23 19:02 11/21/23 16:49 11/21/23 14:00 Intake and Output 11/21/23 11/22/23 11/22/23 22:59 06:59 14:59 Output Total 300 Balance -300 Output: Urine 300 Other: Voiding Method Toilet Urinal Weight 107.955 kg Results 11/22/23 06:58 11/22/23 06:58 Cardiac Enzymes 11/22/23 Range/Units 06:58 AST 44 (17-59) U/L CBC 11/22/23 Range/Units 06:58 WBC 7.5 (3.8-10.6) k/uL RBC 5.69 (4.30-5.90) m/uL Hgb 14.0 (13.0-17.5) gm/dL Hct 47.9 (39.0-53.0) % Plt Count 150 (150-450) k/uL Comprehensive Metabolic Panel 11/22/23 Range/Units 06:58 Sodium 139 (137-145) mmol/L Potassium 3.7 (3.5-5.1) mmol/L Chloride 113 H (98-107) mmol/L Carbon Dioxide 20 L (22-30) mmol/L BUN 9 (9-20) mg/dL Creatinine 0.75 (0.66-1.25) mg/dL Glucose 126 H (74-99) mg/dL Calcium 9.3 (8.4-10.2) mg/dL AST 44 (17-59) U/L ALT 29 (4-49) U/L Alkaline Phosphatase 89 (38-126) U/L Total Protein 6.4 (6.3-8.2) g/dL Albumin 3.9 (3.5-5.0) g/dL Current Medications Generic Name Dose Route Start Last Admin Trade Name Freq PRN Reason Stop Dose Admin Acetaminophen 650 mg 11/21/23 06:45 11/22/23 09:32 Acetaminophen Tab 325 Mg Tab PO 650 mg Q6HR PRN Administration Fever and/ or Pain Allopurinol 100 mg 11/21/23 21:00 11/21/23 22:05 Allopurinol 100 Mg Tab PO 100 mg HS LEONILA Administration Amlodipine Besylate 10 mg 11/21/23 11:00 11/22/23 09:26 Amlodipine 10 Mg Tab PO 10 mg DAILY LEONILA Administration Aspirin 81 mg 11/22/23 09:00 11/22/23 09:26 Aspirin 81 Mg PO 81 mg DAILY LEONILA Administration Buspirone HCl 10 mg 11/21/23 16:00 11/22/23 09:26 Buspirone Hcl 10 Mg Tab PO 10 mg TID LEONILA Administration Famotidine 20 mg 11/21/23 11:00 11/22/23 09:26 Famotidine 20 Mg Tab PO 20 mg DAILY LEONILA Administration Insulin Aspart 0 unit 11/21/23 07:30 11/22/23 06:51 Insulin Aspart (Novolog) 100 Unit/Ml Vial SQ Not Given [facility] Protocol Insulin Detemir 15 unit 11/21/23 21:00 11/21/23 23:54 Insulin Detemir (Levemir) 100 Unit/Ml Syr SQ 15 unit HS LEONILA Administration Lisinopril 10 mg 11/21/23 11:15 11/22/23 09:26 Lisinopril 10 Mg Tab PO 10 mg DAILY LEONILA Administration Lorazepam 0.5 mg 11/20/23 21:27 11/21/23 03:59 Lorazepam 2 Mg/Ml Inj IV 0.5 mg Q6H PRN Administration Anxiety Lorazepam 2 mg 11/21/23 11:15 11/22/23 09:26 Lorazepam 1 Mg Tab PO 2 mg BID LEONILA Administration Naloxone HCl 0.2 mg 11/20/23 21:14 Naloxone 0.4 Mg/Ml 1 Ml Vial IV Q2M PRN Opioid Reversal Ondansetron HCl 4 mg 11/20/23 21:14 Ondansetron 4 Mg/2 Ml Vial IVP Q8HR PRN Nausea And Vomiting Pantoprazole Sodium 40 mg 11/21/23 17:30 11/22/23 06:56 Pantoprazole 40 Mg Tablet PO 40 mg AC-BID LEONILA Administration Pravastatin Sodium 40 mg 11/21/23 21:00 11/21/23 22:05 Pravastatin Sodium 40 Mg Tab PO 40 mg HS LEONILA Administration Quetiapine Fumarate 50 mg 11/21/23 21:00 11/21/23 22:05 Quetiapine 50 Mg Tab PO 50 mg HS LEONILA Administration Quetiapine Fumarate 25 mg 11/21/23 13:15 Quetiapine 25 Mg Tab PO BID PRN anxiety/agitation Rivaroxaban 20 mg 11/21/23 21:00 11/21/23 23:54 Rivaroxaban 20 Mg Tab PO 20 mg HS LEONILA Administration Protocol Sertraline HCl 200 mg 11/21/23 11:45 11/22/23 09:26 Sertraline 100 Mg Tab PO 200 mg DAILY LEONILA Administration Temazepam 15 mg 11/21/23 21:00 11/21/23 23:36 Temazepam 15 Mg Cap PO 15 mg HS LEONILA Administration Intake and Output 11/21/23 11/22/23 11/22/23 22:59 06:59 14:59 Output Total 300 Balance -300 Output: Urine 300 Other: Voiding Method Toilet Urinal Weight 107.955 kg 11/22/23 06:58 11/22/23 06:58
--- NOTE | 2023-11-23 08:58 | P.PN ---
Subjective Progress Note Date: 11/23/23 Hospital course: Patient is a pleasant 73-year-old male with a past medical history of CAD status post stenting, atrial fibrillation on anticoagulation with Xarelto, hypertension, hyperlipidemia, hypothyroidism, GERD, insulin-dependent diabetes mellitus, and colon cancer status post bowel resection and chemotherapy in remission since 2017. He presented to the emergency department with a chief complaint of "feeling impending doom". Patient reports severe anxiety and struggling with his thoughts stating he fears the worst and feels something bad is about to happen and has been seen by his doctors at [facility] and diagnosed with anxiety and started on multiple medications. However, patient reports over the past 2 days he has been experiencing left-sided facial numbness and tingling along with numbness and tingling of left hand. Patient reports this waxes and wanes and is currently not present but patient states this has significantly worsened his anxiety and he cannot help the feeling of impending doom coming up on him. On arrival to our facility, patient underwent evaluation in the emergency department. Vital signs upon arrival show blood pressure 192/85, heart rate 82, respiratory rate 18, temp 97.4 F, and SpO2 of 96% on room air. EKG was completed showing atrial fibrillation with a controlled ventricular rate of 74 bpm and frequent PVCs. CT brain was completed negative for acute intracranial process. Labs completed and reviewed. CBC showing thrombocytopenia with platelet count of 142 otherwise normal findings. C oagulation profile normal findings. BMP showing mild hyperchloremia with chloride of 108 otherwise normal findings. Blood glucose was elevated at 248. Initial lactate was 3.7. Troponin was negative at less than 0.012. Urinalysis negative for infection. Patient was admitted under services with consultation to neurology and psychiatry for evaluation. Physical exam: Patient was seen and fully evaluated at bedside this morning. Feeling better this morning stated feeling significant improvement in his anxiety and paresthesias. He is awaiting to be taken down for MRI. Likely discharge within the next 24 hours pending MRI results and further recommendations from neurologist. Vital signs reviewed and stable. General: Nontoxic, no distress and appears stated age. Derm: Skin warm and dry, normal coloration for ethnicity. Head: Atraumatic, normocephalic and symmetric. Eyes: EOMs intact, no lid lag, and anicteric sclera Mouth: no lip lesions, mucus membranes moist Cardiovascular: Irregularly irregular, positive posterior tibial pulses bilaterally, and cap refill < 2 seconds. Lungs: Respirations even, regular, and unlabored on room air. Lungs CTA bilaterally, no rhonchi, no rales, no wheezing, and no accessory muscle usage. Abdominal: soft, nontender to palpation, no guarding, no appreciable organomegaly Ext: ROM intact. No gross muscle atrophy, no edema, no contractures Neuro: Speech clear, face symmetrical and CN II-XII grossly intact with no noted focal neuro deficits Psych: Alert and oriented to person, place, time, and situation. Patient pleasant and cooperative this morning, anxiety seems to have improved since admission. Assessment and Plan of Care: Right-sided facial and hand paresthesias Elevated D-dimer with reported feeling of impending doom Severe Anxiety with depression Migraine headache, resolved -Neurology consulted and discussed plan of care with neurologist recommending p atient undergo MRI. -EEG was completed showing normal routine EEG with no evidence of focal slowing, epileptiform discharge, or seizure activity. -Psychiatry consulted secondary to reports of severe worsening anxiety. Reviewed documentation in chart, psychiatrist discontinued Remeron and recommending patient to [facility] recommendations for gradual taper off of Restoril and Ativan and started patient on BuSpar 10 mg 3 times daily and Seroquel 50 mg nightly and 25 mg daily as needed for anxiety/agitation. -Neurochecks every 4 hours. -Telemetry monitoring -Continue 81 mg daily and pravastatin 40 mg nightly. -Patient to continue Restoril 15 mg nightly, Zoloft 200 mg daily, Ativan 2 mg twice daily, BuSpar 10 mg 3 times daily, Seroquel 50 mg nightly and 25 mg daily as needed for anxiety/agitation. -D-dimer slightly elevated at 0.88, with patient's reports of feeling of impending doom and slight elevation of D-dimer. CTA negative for PEs, stable pulmonary nodules unchanged since 2022 and hepatic steatosis. -TSH normal findings at 1.750. New onset diarrhea -Possibly secondary to adverse effects of medication as patient was started on BuSpar 10 mg 3 times daily by psychiatry. Will rule out negative and stool culture pending. If diarrhea persists we will discuss with psychiatry their recommendations. Recurrent cardiac pauses -Patient with chronic persistent atrial fibrillation with frequent PVCs and was noted to have recurrent cardiac pauses on telemetry. All appear to be less than 3 seconds, however EKG repeated and cardiology was consulted. -Cardiology evaluated, discussed case with tumbler machine operator helper and cardiac COMPRESSOR OPERATOR ADJUSTER recommending no further interventions from cardiac standpoint at this time. Diabetes mellitus with hyperglycemia -Continue Levemir 15 units nightly with glycemic protocol and NovoLog sliding scale. Lactic acidosis. Resolved after IV fluid hydration. Chronic atrial fibrillation Hypertension Hyperlipidemia History of CAD status post stenting -Patient free from chest pain, palpitations, or reports of shortness of breath. -Troponin negative at less than 0.012 and EKG showing atrial fibrillation with a controlled ventricular response at 74 bpm with frequent PVCs.. -Order placed for aspirin 324 mg p.o. x 1 dose and patient to continue daily medication regimen with aspirin 81 mg daily, amlodipine 10 mg daily, lisinopril 10 mg daily, pravastatin 40 mg nightly, and Xarelto 20 mg nightly. Thrombocytopenia, chronic and stable -Platelet count 150 this morning. GERD Continue home GI prophylaxis with Protonix 40 mg p.o. twice daily and Pepcid 20 mg daily. Data and imaging reviewed: Vital signs reviewed. Blood pressure 135/63, heart rate 75, respiratory rate 19, temp 97.9 F, and SpO2 of 94% on 2 L Morning labs reviewed. CBC showing no significant abnormalities. BMP showing hyperchloremia with chloride of 113, bicarb of 20 and anion gap of 6. Blood glucose 126. Magnesium 2.0. Liver profile unremarkable. CODE STATUS: Full code DVT prophylaxis: Xarelto Anticipated discharge date: Pending completion of MRI. Anticipated discharge place: Home Patient was seen independently by Nurse Pracitioner. This document was prepared using [employer] ([employer]) dictation software. Please allow for errors in cyber reverse engineer, while rare they do occur. Abdi Baker NP rendered care for this patient independently, reviewed the findings and plan as documented in the note above. I did not physically speak with or examine the patient on this date. Objective - Vital Signs Vital signs: Vital Signs Temp 97.9 F 11/23/23 07:00 Pulse 75 11/23/23 07:00 Resp 19 11/23/23 07:00 BP 135/63 11/23/23 07:00 Pulse Ox 98 11/23/23 07:55 FiO2 21 11/22/23 00:24 Intake & Output 11/22/23 11/23/23 11/23/23 18:59 06:59 18:59 Output Total 200 Balance -200 Output: Urine 200 Other: Voiding Method Toilet Urinal # Voids 2 # Bowel Movements 3 - Labs CBC & Chem 7: 11/22/23 06:58 11/22/23 06:58 Labs: Abnormal Lab Results - Last 24 Hours (Table) 11/22/23 11/22/23 11/22/23 Range/Units 11:36 17:02 20:49 POC Glucose (mg/dL) 159 H 176 H 195 H (70-110) mg/dL 11/23/23 Range/Units 06:17 POC Glucose (mg/dL) 156 H (70-110) mg/dL
[2023-11-23 12:04] LABS: Glucose,Whole Blood 163 mg/dL (70-110)
--- NOTE | 2023-11-23 12:50 | P.PN ---
Progress Note - Text Progress Note Date: 11/23/23 Interval history: Patient was seen today for psychiatric follow up. Nurse taking care of patient did not report any complaints, states that patient has not been complaining of anxiety much at all has been sleeping. Patient was seen laying in bed sleeping, he was easily awoken by keno writer / runner. He appears to be visibly less anxious, states that his anxiety level has improved significantly. Denies any depression at this time. He thanked keno writer / runner for helping him with his medications for now. He states that he is also tolerating the medications well. Claims that he has been eating fairly, has been sleeping but sleeping about 7 to 6 hours a night. At this time he is denying any auditory or visual hallucinations. Denying any suicidal homicidal ideations intent or plan. MENTAL STATUS EXAM: General Appearance: Patient appears to be mildly overweight, curly hair, stated age is alert, attempts to be cooperative. Patient appears to have fair hygiene and grooming wearing hospital gown with fair eye contact. Behavior: Patient is calmly lying in bed without any agitated behavior. Attempts to cooperate. Improving Speech: Patient's speech is fluent and nonpressured. Less anxious today. Mood/Affect: Patient reports their mood is "better", affect is congruent Suicidality/Homicidality: Patient denies having any suicidal or homicidal ideation intent or plan. Perceptions: Patient denies any visual hallucinations and denies any auditory hallucinations Though content/process: There is no evidence of any delusional thought content and thought process is linear and goal-directed. More future oriented Memory and concentration: AOX3, grossly intact for the purposes of this session. Judgment and insight: fair IMPRESSIONS: Generalized anxiety disorder Depressive disorder unspecified PLAN: -At this time patient DOES NOT meet criteria for inpatient psychiatric admission. -Would recommend the following medication changes/additions: Spoke with patient about the drawbacks of benzodiazepines and his medication Restoril for sleep and the likelihood of tolerance and possible overdose potential or abuse, suggested that this be gradually tapered off as an outpatient with his [facility] psychiatrist. Continue with Seroquel 50 mg scheduled nightly for sleep/anxiety/mood adjunct, continue with Zoloft 200 mg daily for mood/anxiety, continue BuSpar 10 mg 3 times daily for anxiety, continue Atarax as needed. -Patient can continue following up with his outpatient psychiatrist through the [facility] once he is discharged. -At this time psychiatry will sign off. -Please contact with any questions.
--- NOTE | 2023-11-23 13:24 | P.PN ---
Subjective Progress Note Date: 11/23/23 I am following-up with patient and he is about the same. No new neurological issues. Still pending MRI. Objective - Vital Signs Vital signs: Vital Signs Temp 97.9 F 11/23/23 07:00 Pulse 75 11/23/23 07:00 Resp 19 11/23/23 07:00 BP 135/63 11/23/23 07:00 Pulse Ox 98 11/23/23 07:55 FiO2 21 11/22/23 00:24 Intake & Output 11/22/23 11/23/23 11/23/23 18:59 06:59 18:59 Intake Total 200 Output Total 200 Balance -200 200 Intake: Oral 200 Output: Urine 200 Other: Voiding Method Toilet Urinal # Voids 2 1 # Bowel Movements 3 1 - Exam GENERAL: The patient is sitting on side of bed and is not in acute distress. HENT: Supple neck. NEUROLOGICAL: Higher mental function: The patient is awake, alert, oriented to self, place and time. Patient is following commands. No aphasia and no neglect. Cranial nerves: The pupils are round, equal and reactive to light. Visual major are full to confrontation throughout. Extraocular movement is intact no nystagmus is noted. Facial sensation is normal to touch throughout. The facial strength is normal throughout. Hearing is severely decreased bilaterally to hand rub (chronic). Tongue is midline and moved [id number] without any difficulty. No dysarthria is noted. Shoulder shrug is normal bilaterally. Motor: The strength is 5 over 5 throughout. Normal tone and bulk. Cerebellum: Normal finger to nose bilaterally. Sensation: Sensation is normal to touch throughout. Some of the work-up during this hospital visit consisted of: Blood cell has been within normal limits. Plasma lactic acid vein as high as 3.9 minutes resolved. TSH is 1.750 ESR 9 Ammonia level is less than 9 Vitamin B12: 438 Serum folate: 12.60 Sodium, calcium, phosphorus, AST ALT are within normal limits. CT head is reported as no acute intracranial abnormality. I reviewed the CT and I agree there is no acute or subacute stroke. Routine EEG: Is normal. Carotid duplex: And report does not have any note in impression CTA head: Is reported as no large vessel intracranial arterial occlusion, significant stenosis or aneurysm changes seen. Anatomic variation with hypoplastic V4 segment right vertebral artery following PICA takeoff and a hypoplastic A1 segment left FRAN. CTA neck: Dominant left vertebral artery. The mid left ICA is obscured due to swallowing motion artifact and not adequate assessed. Otherwise widely patent vertebral and carotid artery of the neck. - Labs CBC & Chem 7: 11/22/23 06:58 11/22/23 06:58 Labs: Abnormal Lab Results - Last 24 Hours (Table) 11/22/23 11/22/23 11/23/23 Range/Units 17:02 20:49 06:17 POC Glucose (mg/dL) 176 H 195 H 156 H (70-110) mg/dL 11/23/23 Range/Units 12:03 POC Glucose (mg/dL) 163 H (70-110) mg/dL Assessment and Plan Assessment: This is a 73-year-old gentleman with history of atrial fibrillation on Xarelto, diabetes mellitus, coronary artery disease status post stent, who was diagnosed by the [facility] physician with and anxiety and presents to hospital because of feeling impeding doom. He is over the worst and feels something bad is about to happen. He has been complaining of facial numbness to me noted notify me he has been having facial numbness with jaw issues for the last 1 to 2 years on the right side progressively worse in the couple months hand facial numbness and tingling. She is also complaining of headache. Facial and hand paresthesia and he notified me at over the right and confirmed over the right. Rule out central process. CT head is negative for acute process. CTA head/neck is negative. Cephalgia--improved. ESR is normal. Anxiety Elevated lactic acid vein---resolved. History of stroke and notify me he had some stroke affecting the eye about 3 to 4 years ago History of atrial fibrillation on Xarelto Diabetes mellitus Hypertension Hyperlipidemia History of colon cancer status post resection and chemotherapy in 2017 Plan: MRI of the brain with and without pending. Ordered 2D echo. He was on Xarelto his home medication for A-fib. It seems that the patient was placed on aspirin 81mgdaily. Will defer the use of aspirin to the primary team. Patient is on pravastatin 40 mg nightly. Psychiatry is consulted Will defer the rest of the medical management to primary and other specialist Plan discussed with his nurse and primary team nurse practitioner. Time with Patient: Less than 30
--- NOTE | 2023-11-23 17:16 | CA ---
Transthoracic Echo Report Name: Geovany Patel Age: 73 Gender: M : 1950 Exam Date: 11/23/2023 14:26 Exam Location: [facility] Ht (in): 70 Wt (lb): 238 Ordering Physician: Scott Mooney MD Attending/Referring Phys: Marketing Area Manager Rosalind Rudolph RDCS Procedure CPT: Indications: stroke Cardiac Hx: Technical Quality: Technically difficult study Contrast 1: Total Dose (mL): Contrast 2: Total Dose (mL): MEASUREMENTS (Male / Female) Normal Values 2D ECHO LV Diastolic Diameter PLAX 4.2 cm 4.2 - 5.9 / 3.9 - 5.3 cm LV Systolic Diameter PLAX 3.0 cm IVS Diastolic Thickness 1.4 cm 0.6 - 1.0 / 0.6 - 0.9 cm LVPW Diastolic Thickness 1.4 cm 0.6 - 1.0 / 0.6 - 0.9 cm LV Relative Wall Thickness 0.7 RV Internal Dim ED PLAX 3.4 cm LA Systolic Diameter LX 3.5 cm 3.0 - 4.0 / 2.7 - 3.8 cm LA Volume 66.6 cm??? 18 - 58 / 22 - 52 cm??? LA Volume Index 28.4 cm???/m??? 16 - 28 cm???/m??? M-MODE Aortic Root Diameter MM 3.5 cm AV Cusp Separation MM 2.0 cm DOPPLER AV Peak Velocity 120.6 cm/s AV Peak Gradient 5.8 mmHg MV Area PHT 3.6 cm??? MV Deceleration Time 189.3 ms FINDINGS Left Ventricle Left ventricular ejection fraction is estimated at 55-60 %. Left ventricular cavity size normal. Moderate left ventricular hypertrophy. No obvious regional wall motion abnormalities. Right Ventricle Mild right ventricular dilatation. Unable to estimate the right ventricular systolic pressure.prominent moderator band in right ventricle (normal variant). Right Atrium Normal right atrial size. Left Atrium Mildly increased left atrial volume. Mildly increased left atrial area. Mitral Valve Structurally normal mitral valve. No mitral stenosis, regurgitation or prolapse. Aortic Valve Trileaflet aortic valve. No aortic valve stenosis or regurgitation. Tricuspid Valve Structurally normal tricuspid valve. No tricuspid regurgitation. Pulmonic Valve Structurally normal pulmonic valve. No pulmonic regurgitation. Pericardium No pericardial effusion.echo free space anterior to the right ventricle likely represents a fat pad. Aorta Normal size aortic root and proximal ascending aorta. CONCLUSIONS Technically difficult study. Definity ECHO contrast used for improved visualization of the endocardial borders (inadequate visualization of two or more contiguous segments). Normal left ventricle size and systolic function Limited Doppler study with no gross abnormalities Previewed by: Dr. Rakan Corrigan MD (Electronically Signed) Final Date: 23 November 2023 17:15
[2023-11-23 18:02] LABS: Glucose,Whole Blood 168 mg/dL (70-110)
--- NOTE | 2023-11-23 18:12 | MR ---
EXAMINATION TYPE: MR brain wo/w con DATE OF EXAM: 11/23/2023 5:34 PM CLINICAL INDICATION:Male, 73 years old with history of facial numbness; PHH, facial numbness COMPARISON: 11/21/2023. TECHNIQUE: Multi planar, multi sequence imaging was performed through the brain including: T1, T2, In version recovery, susceptibility weighted imaging and gradient echo imaging and Diffusion weighted im aging. The patient was then given intravenous contrast and multi planar, T1 fat-saturation images wer e obtained. IV Contrast: 10.5 cc Gadavist FINDINGS: The rowland-white junctions, ventricular system, basal cisterns appear unremarkable. Diffusion-weighted imaging shows a tiny focus of high DWI signal in the cortex within the left temporal lobe.. Intracra nial arterial flow voids are maintained. Midline structures show no abnormality. Scattered foci of hi gh T2 signal intensity are seen within the periventricular white matter. The susceptibility weighted images do not reveal any evidence for micro-hemorrhage. After administration of gadolinium, no abnorm al enhancement is seen. The bone marrow signal is within normal limits. Paranasal sinuses and mastoid air cells: No significant paranasal sinus disease. Visualized orbits: Orbital contents are intact. IMPRESSION: 1. Tiny focus of restricted diffusion within the cortex of the left temporal lobe may represent acute ischemia versus artifact attention on follow-up imaging MRI in 1-2 months. 2. Nonspecific white matter changes, likely related to small vessel ischemic disease.
[2023-11-23 21:30] LABS: Glucose,Whole Blood 156 mg/dL (70-110)
[2023-11-24 06:14] LABS: Glucose,Whole Blood 169 mg/dL (70-110)
[2023-11-24 11:45] LABS: Glucose,Whole Blood 235 mg/dL (70-110)
[2023-11-24 12:11] LABS: ALT 26 U/L (4-49); African American GFR (CKD) >90 (>60 ml/min/1.73 sqM); Albumin 3.7 g/dL (3.5-5.0); Albumin/Globulin Ratio 1.5; Anion Gap 5 mmol/L; Blood Urea Nitrogen 12 mg/dL (9-20); Calcium 9.5 mg/dL (8.4-10.2); Carbon Dioxide 20 mmol/L (22-30); Chloride 111 mmol/L (98-107); Globulin 2.5 g/dL; Glucose 186 mg/dL (74-99); Non-African American GFR(CKD) >90 (>60 ml/min/1.73 sqM); Sodium 136 mmol/L (137-145); Total Bilirubin 0.7 mg/dL (0.2-1.3); Total Protein 6.2 g/dL (6.3-8.2)
[2023-11-24 12:15] LABS: Anisocytosis Slight; HCT 47.6 % (39.0-53.0); HGB 14.3 gm/dL (13.0-17.5); Hypochromasia Moderate; MCH 25.4 pg (25.0-35.0); MCHC 30.1 g/dL (31.0-37.0); MCV 84.5 fL (80.0-100.0); Mean Platelet Volume 8.7; Platelet Count 118 k/uL (150-450); RBC 5.64 m/uL (4.30-5.90); RDW 16.6 % (11.5-15.5); WBC 6.4 k/uL (3.8-10.6)
[2023-11-24 12:16] LABS: AST 40 U/L (17-59); Alkaline Phosphatase 68 U/L (38-126); Potassium 4.5 mmol/L (3.5-5.1)
--- NOTE | 2023-11-24 15:18 | P.PN ---
Subjective Progress Note Date: 11/24/23 I am following up with the patient and he stated today early in the morning he had a sensation of impeding doom. Prescribed the primary team that he had abnormal sensation during the impeding doom over the right face in which I was unable to obtain the information since patient is very hard of hearing and was very tangential. He feels back to baseline. Objective - Vital Signs Vital signs: Vital Signs Temp 97.8 F 11/24/23 07:50 Pulse 81 11/24/23 07:50 Resp 19 11/24/23 07:50 BP 126/91 11/24/23 07:50 Pulse Ox 94 L 11/24/23 08:12 FiO2 21 11/24/23 08:12 Intake & Output 11/23/23 11/24/23 11/24/23 18:59 06:59 18:59 Intake Total 400 Balance 400 Intake: Oral 400 Other: # Voids 3 # Bowel Movements 1 - Exam GENERAL: The patient is sitting on side of bed and is not in acute distress. HENT: Supple neck. NEUROLOGICAL: Higher mental function: The patient is awake, alert, oriented to self, place and time. Patient is following commands. No aphasia and no neglect. Cranial nerves: The pupils are round, equal and reactive to light. Visual major are full to confrontation throughout. Extraocular movement is intact no nystagmus is noted. Facial sensation is normal to touch throughout. The facial strength is normal throughout. Hearing is severely decreased bilaterally to hand rub (chronic). Tongue is midline and moved [id number] without any difficulty. No dysarthria is noted. Shoulder shrug is normal bilaterally. Motor: The strength is 5 over 5 throughout. Normal tone and bulk. Cerebellum: Normal finger to nose bilaterally. Sensation: Sensation is normal to touch throughout. Some of the work-up during this hospital visit consisted of: Blood cell has been within normal limits. Plasma lactic acid vein as high as 3.9 minutes resolved. TSH is 1.750 ESR 9 Ammonia level is less than 9 Vitamin B12: 438 Serum folate: 12.60 Sodium, calcium, phosphorus, AST ALT are within normal limits. CT head is reported as no acute intracranial abnormality. I reviewed the CT and I agree there is no acute or subacute stroke. Routine EEG: Is normal. Carotid duplex: And report does not have any note in impression CTA head: Is reported as no large vessel intracranial arterial occlusion, significant stenosis or aneurysm changes seen. Anatomic variation with hypoplastic V4 segment right vertebral artery following PICA takeoff and a hypoplastic A1 segment left FRAN. CTA neck: Dominant left vertebral artery. The mid left ICA is obscured due to swallowing motion artifact and not adequate assessed. Otherwise widely patent v ertebral and carotid artery of the neck. MRI of the brain is reported as tiny focus of restricted diffusion within the cortex of left temporal lobe may represent acute ischemia versus artifact attention on follow-up imaging MRI within 1 to 2 months. I personally reviewed the MRI and I felt the patient did have restriction diffusion over that region and it was only 1 spot tiny. 2D echo: Normal left ventricular size systolic function. Limited Doppler study with no gross abnormality - Labs CBC & Chem 7: 11/24/23 11:18 11/24/23 11:18 Labs: Abnormal Lab Results - Last 24 Hours (Table) 11/23/23 11/23/23 11/24/23 Range/Units 17:58 21:29 06:13 MCHC (31.0-37.0) g/dL RDW (11.5-15.5) % Plt Count (150-450) k/uL Sodium (137-145) mmol/L Chloride (98-107) mmol/L Carbon Dioxide (22-30) mmol/L Glucose (74-99) mg/dL POC Glucose (mg/dL) 168 H 156 H 169 H (70-110) mg/dL Total Protein (6.3-8.2) g/dL 11/24/23 11/24/23 11/24/23 Range/Units 11:18 11:18 11:35 MCHC 30.1 L (31.0-37.0) g/dL RDW 16.6 H (11.5-15.5) % Plt Count 118 L (150-450) k/uL Sodium 136 L (137-145) mmol/L Chloride 111 H (98-107) mmol/L Carbon Dioxide 20 L (22-30) mmol/L Glucose 186 H (74-99) mg/dL POC Glucose (mg/dL) 235 H (70-110) mg/dL Total Protein 6.2 L (6.3-8.2) g/dL Microbiology - Last 24 Hours (Table) 11/22/23 12:28 Stool Culture - Preliminary Stool Assessment and Plan Assessment: This is a 73-year-old gentleman with history of atrial fibrillation on Xarelto, diabetes mellitus, coronary artery disease status post stent, who [facility] with and anxiety and presents to hospital because of feeling impeding doom. He is over the worst and feels something bad is about to happen. He has been complaining of facial numbness to me noted notify me he has been having facial numbness with jaw issues for the last 1 to 2 years on the right side progressively worse in the couple months hand facial numbness and tingling. She is also complaining of headache. Facial and hand paresthesia and he notified me at over the right and confirmed over the right. And has small focal restriction diffusion over the left temporal which could be cva vs artifact. I felt probable stroke since can go with his symptoms over right side. CT head is negative for acute process. CTA head/neck is negative. Cephalgia--improved. ESR is normal. Having sensation of empeeding doom today with adreline rcouch: Unsure cause Anxiety Elevated lactic acid vein---resolved. History of stroke and notify me he had some stroke affecting the eye about 3 to 4 years ago History of atrial fibrillation on Xarelto Diabetes mellitus Hypertension Hyperlipidemia History of colon cancer status post resection and chemotherapy in 2017 Plan: I will pursue with MRI cervical spine since had episode of hand paresthesia. If has recurrent abnormal sensation of doom, will consider repeat EEG. Lipid panel ordered an pending. He was on Xarelto his home medication for A-fib. It seems that the patient was placed on aspirin 81mg daily. Patient is on pravastatin 40 mg nightly. Psychiatry is consulted Will defer the rest of the medical management to primary and other specialist Plan discussed with patient, and primary team nurse practitioner. Time with Patient: Less than 30
--- NOTE | 2023-11-24 16:08 | P.PN ---
Subjective Progress Note Date: 11/24/23 HISTORY OF PRESENT ILLNESS: This is a 73-year-old male with a past medical history significant for coronary artery disease, permanent atrial fibrillation, hyperlipidemia, diabetes, GERD, and anxiety. 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 We have been asked to see the patient in consultation for pauses on telemetry. Patient examined at the bedside. Patient initially presented to hospital with complaints of " feeling impending doom". He does report increased anxiety recently. He reports having left-sided facial numbness and tingling and also of his left hand. He states he is feeling much better this morning. He denies any chest pain or pressure. Telemetry reveals atrial fibrillation with controlled ventricular rate. Patient has had no significant pauses greater than 3 seconds. He does have frequent PVCs on telemetry. He denies any episodes of syncope. DIAGNOSTICS: - EKG reveals atrial fibrillation with controlled ventricular rate. PVCs. - Carotid Doppler: Negative for significant stenosis - EEG: Negative for seizure activity - CT angio: Dominant left vertebral artery. Mid left ICA is obscured due to swallowing motion artifact and not adequately assessed. Otherwise widely patent vertebral and carotid arteries of the neck. No large vessel intracranial or arterial occlusion, significant stenosis, or aneurysmal changes seen. - Laboratory data: WBC 7.5. Hemoglobin 14.0. Platelet count 150. Sodium 139. Potassium 3.7. BUN 9. Creatinine 0.75. TSH 1.750. - Current home cardiac medications include Xarelto 20 mg at night, Pravachol 20 mg at night, amlodipine 10 mg daily, lisinopril 10 mg daily. - Most recent echocardiogram obtained in July 2023 revealed ejection fraction 60-65%, trace MR - Lexiscan stress test performed in November 2018 was negative for ischemia Progress note November 24, 2023 Echocardiogram was a difficult study with limited views. LVEF appears grossly normal with 55 to 60%, moderate LVH, mild MR, mild RV dilatation PHYSICAL EXAM: VITAL SIGNS: Reviewed. GENERAL: Well-developed in no acute distress. HEENT: Head is normocephalic. Pupils are equal, round. Sclerae anicteric. Mucous membranes of the mouth are moist. Neck supple. No JVD or thyromegaly LUNGS: Respirations even and unlabored. Lungs essentially clear to auscultation bilaterally. HEART: Irregular rate and rhythm. S1 and S2 heard. ABDOMEN: Soft. Nondistended. Nontender. EXTREMITIES: Normal range of motion. No clubbing or cyanosis. Peripheral pulses intact. No lower extremity edema NEUROLOGIC: Awake and alert. Oriented x 3. ASSESSMENT: Left-sided facial and hand numbness Severe anxiety, improved Permanent atrial fibrillation with no significant pauses noted Frequent PVCs Coronary artery disease with previous PCI to the LAD, 2006, in [place] Hypertension Hyperlipidemia Diabetes Obesity: BMI 34.1 PLAN: TSH checked and within normal limits at 1.750. Echocardiogram was a difficult study with limited views. LVEF appears grossly normal with 55 to 60%, moderate LVH, mild MR, mild RV dilatation Patient has history of atrial fibrillation which is rate controlled. No further episodes of pauses noticed on the telemetry. Continue aspirin 81 mg, Lipitor 40 mg, Xarelto 20 mg, lisinopril 10 mg daily. Patient is not on any AV will blocking agents. He is not rate controlled versus slow ventricular response to atrial fibrillation at this time. Would recommend outpatient follow-up with cardiology clinic. Would recommend outpatient 14-day event monitor to look for heart rate trends. Okay to be discharged from cardiology standpoint. Objective - Vital Signs Vital signs: Vital Signs Temp 98.4 F 11/24/23 14:00 Pulse 70 11/24/23 14:00 Resp 16 11/24/23 14:00 BP 143/73 11/24/23 14:00 Pulse Ox 97 11/24/23 14:00 FiO2 21 11/24/23 08:12 Intake & Output 11/23/23 11/24/23 11/24/23 18:59 06:59 18:59 Intake Total 400 Balance 400 Intake: Oral 400 Other: # Voids 3 # Bowel Movements 1 - Labs CBC & Chem 7: 11/24/23 11:18 11/24/23 11:18 Labs: Abnormal Lab Results - Last 24 Hours (Table) 11/23/23 11/23/23 11/24/23 Range/Units 17:58 21:29 06:13 MCHC (31.0-37.0) g/dL RDW (11.5-15.5) % Plt Count (150-450) k/uL Sodium (137-145) mmol/L Chloride (98-107) mmol/L Carbon Dioxide (22-30) mmol/L Glucose (74-99) mg/dL POC Glucose (mg/dL) 168 H 156 H 169 H (70-110) mg/dL Total Protein (6.3-8.2) g/dL 11/24/23 11/24/23 11/24/23 Range/Units 11:18 11:18 11:35 MCHC 30.1 L (31.0-37.0) g/dL RDW 16.6 H (11.5-15.5) % Plt Count 118 L (150-450) k/uL Sodium 136 L (137-145) mmol/L Chloride 111 H (98-107) mmol/L Carbon Dioxide 20 L (22-30) mmol/L Glucose 186 H (74-99) mg/dL POC Glucose (mg/dL) 235 H (70-110) mg/dL Total Protein 6.2 L (6.3-8.2) g/dL Microbiology - Last 24 Hours (Table) 11/22/23 12:28 Stool Culture - Preliminary Stool
[2023-11-24 16:45] LABS: Glucose,Whole Blood 215 mg/dL (70-110)
--- NOTE | 2023-11-24 16:54 | P.PN ---
Subjective Progress Note Date: 11/24/23 Hospital course: Patient is a pleasant 73-year-old male with a past medical history of CAD status post stenting, atrial fibrillation on anticoagulation with Xarelto, hypertension, hyperlipidemia, hypothyroidism, GERD, insulin-dependent diabetes mellitus, and colon cancer status post bowel resection and chemotherapy in remission since 2017. He presented to the emergency department with a chief complaint of "feeling impending doom". Patient reports severe anxiety and struggling with his thoughts stating he fears the worst and feels something bad is about to happen and has been seen by his doctors at [facility] and diagnosed with anxiety and started on multiple medications. However, patient reports over the past 2 days he has been experiencing left-sided facial numbness and tingling along with numbness and tingling of left hand. Patient reports this waxes and wanes and is currently not present but patient states this has significantly worsened his anxiety and he cannot help the feeling of impending doom coming up on him. On arrival to our facility, patient underwent evaluation in the emergency department. Vital signs upon arrival show blood pressure 192/85, heart rate 82, respiratory rate 18, temp 97.4 F, and SpO2 of 96% on room air. EKG was completed showing atrial fibrillation with a controlled ventricular rate of 74 bpm and frequent PVCs. CT brain was completed negative for acute intracranial process. Labs completed and reviewed. CBC showing thrombocytopenia with platelet count of 142 otherwise normal findings. C oagulation profile normal findings. BMP showing mild hyperchloremia with chloride of 108 otherwise normal findings. Blood glucose was elevated at 248. Initial lactate was 3.7. Troponin was negative at less than 0.012. Urinalysis negative for infection. Patient was admitted under services with consultation to neurology and psychiatry for evaluation. Physical exam: Patient was seen and fully evaluated at bedside this morning. Feeling better this morning stated feeling significant improvement in his anxiety and paresthesias. He is awaiting to be taken down for MRI. Likely discharge within the next 24 hours pending MRI results and further recommendations from neurologist. Vital signs reviewed and stable. General: Nontoxic, no distress and appears stated age. Derm: Skin warm and dry, normal coloration for ethnicity. Head: Atraumatic, normocephalic and symmetric. Eyes: EOMs intact, no lid lag, and anicteric sclera Mouth: no lip lesions, mucus membranes moist Cardiovascular: Irregularly irregular, positive posterior tibial pulses bilaterally, and cap refill < 2 seconds. Lungs: Respirations even, regular, and unlabored on room air. Lungs CTA bilaterally, no rhonchi, no rales, no wheezing, and no accessory muscle usage. Abdominal: soft, nontender to palpation, no guarding, no appreciable organomegaly Ext: ROM intact. No gross muscle atrophy, no edema, no contractures Neuro: Speech clear, face symmetrical and CN II-XII grossly intact with no noted focal neuro deficits Psych: Alert and oriented to person, place, time, and situation. Patient pleasant and cooperative this morning, anxiety seems to have improved since admission. Assessment and Plan of Care: Right-sided facial and hand paresthesias Elevated D-dimer with reported feeling of impending doom Severe Anxiety with depression Migraine headache, resolved -Neurology consulted and discussed MRI results and plan of care with neurologist and he is recommending patient undergo MRI of cervical spine. -MRI showing tiny focus of restricted diffusion within the cortex of the left temporal lobe may represent acute ischemia. -EEG was completed showing normal routine EEG with no evidence of focal slowing, epileptiform discharge, or seizure activity. -Psychiatry consulted secondary to reports of severe worsening anxiety. Reviewed documentation in chart, psychiatrist discontinued Remeron and recommending patient to discuss with [facility] recommendations for gradual taper off of Restoril and Ativan and started patient on BuSpar 10 mg 3 times daily and Seroquel 50 mg nightly and 25 mg daily as needed for anxiety/agitation. -Neurochecks every 4 hours. -Telemetry monitoring -Continue 81 mg daily and pravastatin 40 mg nightly. -Patient to continue Restoril 15 mg nightly, Zoloft 200 mg daily, Ativan 2 mg twice daily, BuSpar 10 mg 3 times daily, Seroquel 50 mg nightly and 25 mg daily as needed for anxiety/agitation. -D-dimer slightly elevated at 0.88, with patient's reports of feeling of impending doom and slight elevation of D-dimer. CTA negative for PEs, stable pulmonary nodules unchanged since 2022 and hepatic steatosis. -TSH normal findings at 1.750. New onset diarrhea, resolved. -Possibly secondary to adverse effects of medication as patient was started on BuSpar 10 mg 3 times daily by psychiatry. -C. difficile was negative. Recurrent cardiac pauses -Patient with chronic persistent atrial fibrillation with frequent PVCs and was noted to have recurrent cardiac pauses on telemetry. All appear to be less than 3 seconds, however EKG repeated and cardiology was consulted. -Cardiology evaluated, recommending no further interventions from cardiac standpoint at this time. Diabetes mellitus with hyperglycemia -Continue Levemir 15 units nightly with glycemic protocol and NovoLog sliding scale. Lactic acidosis. Resolved after IV fluid hydration. Chronic atrial fibrillation Hypertension Hyperlipidemia History of CAD status post stenting -Patient free from chest pain, palpitations, or reports of shortness of breath. -Troponin negative at less than 0.012 and EKG showing atrial fibrillation with a controlled ventricular response at 74 bpm with frequent PVCs.. -Order placed for aspirin 324 mg p.o. x 1 dose and patient to continue daily medication regimen with aspirin 81 mg daily, amlodipine 10 mg daily, lisinopril 10 mg daily, pravastatin 40 mg nightly, and Xarelto 20 mg nightly. Thrombocytopenia, chronic and stable -Platelet count 150 this morning. GERD Continue home GI prophylaxis with Protonix 40 mg p.o. twice daily and Pepcid 20 mg daily. Data and imaging reviewed: Vital signs reviewed. Blood pressure 126/91, heart rate 81, respiratory rate 19, temp 97.8 F, and SpO2 of 94% on room air. Morning labs reviewed. CBC showing thrombocytopenia with platelet count of 118. BMP showing non-anion gap metabolic acidosis with chloride of 111, bicarb 20, anion gap of 5. Blood glucose 186. Liver profile normal findings. Magnesium 2.0. MRI showing tiny focus of restricted diffusion within the cortex of the left temporal lobe may represent acute ischemia. CODE STATUS: Full code DVT prophylaxis: Xarelto Anticipated discharge date: Pending completion of MRI. Anticipated discharge place: Home Patient was seen independently by Nurse Pracitioner. This document was prepared using [employer] dictation software. Please allow for errors in medical billing and coding instructor, while rare they do occur. I reviewed the documentation as provided by the REGAN above, who is the original author of this note. I agree with the documented assessment and plan, with the following changes: none Objective - Vital Signs Vital signs: Vital Signs Temp 97.8 F 11/24/23 07:50 Pulse 81 11/24/23 07:50 Resp 19 11/24/23 07:50 BP 126/91 11/24/23 07:50 Pulse Ox 94 L 11/24/23 08:12 FiO2 21 11/24/23 08:12 Intake & Output 11/23/23 11/24/23 11/24/23 18:59 06:59 18:59 Intake Total 400 Balance 400 Intake: Oral 400 Other: # Voids 3 # Bowel Movements 1 - Labs CBC & Chem 7: 11/24/23 11:18 11/24/23 11:18 Labs: Abnormal Lab Results - Last 24 Hours (Table) 11/23/23 11/23/23 11/23/23 Range/Units 12:03 17:58 21:29 POC Glucose (mg/dL) 163 H 168 H 156 H (70-110) mg/dL 11/24/23 Range/Units 06:13 POC Glucose (mg/dL) 169 H (70-110) mg/dL
[2023-11-24] MEDS: MAG HYDROX/AL HYDROX/SIMETH 30 ML, HYOSCYAMINE ELIXIR 10 ML, LIDOCAINE VISCOUS 2% 10 ML PO ONE (18:36)
[2023-11-24 20:41] LABS: Glucose,Whole Blood 219 mg/dL (70-110)
[2023-11-25 05:56] LABS: Glucose,Whole Blood 137 mg/dL (70-110)
[2023-11-25 08:08] LABS: Chol/HDL Ratio 3.97 Ratio; LDL Cholesterol,Calculated 85.5 mg/dL (0.0-131.0)
[2023-11-25 11:24] LABS: Glucose,Whole Blood 192 mg/dL (70-110)
--- NOTE | 2023-11-25 13:44 | P.PN ---
Subjective Progress Note Date: 11/25/23 I am following-up with patient and he is accompanied with his and no further neurological episode. No further episode of feeling doom or crouch of Savi. Objective - Vital Signs Vital signs: Vital Signs Temp 97.7 F 11/25/23 07:10 Pulse 74 11/25/23 07:10 Resp 18 11/25/23 07:10 BP 138/82 11/25/23 07:10 Pulse Ox 99 11/25/23 07:10 FiO2 21 11/24/23 08:12 Intake & Output 11/24/23 11/25/23 11/25/23 18:59 06:59 18:59 Intake Total 200 Balance 200 Intake: Oral 200 Other: Voiding Method Diaper # Voids 3 2 - Exam GENERAL: The patient is sitting on side of bed and is not in acute distress. HENT: Supple neck. NEUROLOGICAL: Higher mental function: The patient is awake, alert, oriented to self, place and time. Patient is following commands. No aphasia and no neglect. Cranial nerves: The pupils are round, equal and reactive to light. Visual major are full to confrontation throughout. Extraocular movement is intact no nystagmus is noted. Facial sensation is normal to touch throughout. The facial strength is normal throughout. Hearing is severely decreased bilaterally to hand rub (chronic). Tongue is midline and moved [id number] without any difficulty. No dysarthria is noted. Shoulder shrug is normal bilaterally. Motor: The strength is 5 over 5 throughout. Normal tone and bulk. Cerebellum: Normal finger to nose bilaterally. Sensation: Sensation is normal to touch throughout. Some of the work-up during this hospital visit consisted of: Blood cell has been within normal limits. Plasma lactic acid vein as high as 3.9 minutes resolved. TSH is 1.750 ESR 9 Ammonia level is less than 9 Vitamin B12: 438 Serum folate: 12.60 Lipid panel: TG 261, Cholestrol 184, LDL 8 and HDL 46 Sodium, calcium, phosphorus, AST ALT are within normal limits. CT head is reported as no acute intracranial abnormality. I reviewed the CT and I agree there is no acute or subacute stroke. Routine EEG: Is normal. Carotid duplex: And report does not have any note in impression CTA head: Is reported as no large vessel intracranial arterial occlusion, significant stenosis or aneurysm changes seen. Anatomic variation with hypopl astic V4 segment right vertebral artery following PICA takeoff and a hypoplastic A1 segment left FRAN. CTA neck: Dominant left vertebral artery. The mid left ICA is obscured due to swallowing motion artifact and not adequate assessed. Otherwise widely patent vertebral and carotid artery of the neck. MRI of the brain is reported as tiny focus of restricted diffusion within the cortex of left temporal lobe may represent acute ischemia versus artifact attention on follow-up imaging MRI within 1 to 2 months. I personally reviewed the MRI and I felt the patient did have restriction diffusion over that region and it was only 1 spot tiny. 2D echo: Normal left ventricular size systolic function. Limited Doppler study with no gross abnormality - Labs CBC & Chem 7: 11/24/23 11:18 11/24/23 11:18 Labs: Abnormal Lab Results - Last 24 Hours (Table) 11/24/23 11/24/23 11/24/23 Range/Units 16:42 16:57 20:39 POC Glucose (mg/dL) 215 H 219 H (70-110) mg/dL Triglycerides 261.00 H (0.00-149.00) mg/dL VLDL Cholesterol, Calc 52.20 H (5.00-40.00) mg/dL 11/25/23 11/25/23 Range/Units 05:54 11:22 POC Glucose (mg/dL) 137 H 192 H (70-110) mg/dL Triglycerides (0.00-149.00) mg/dL VLDL Cholesterol, Calc (5.00-40.00) mg/dL Microbiology - Last 24 Hours (Table) 11/22/23 12:28 Stool Culture - Preliminary Stool Assessment and Plan Assessment: This is a 73-year-old gentleman with history of atrial fibrillation on Xarelto, diabetes mellitus, coronary artery disease status post stent, who was diagnosed by the [place] physician with and anxiety and presents to hospital because of feeling impeding doom. He is over the worst and feels something bad is about to happen. He has been complaining of facial numbness to me noted notify me he has been having facial numbness with jaw issues for the last 1 to 2 years on the right side progressively worse in the couple months hand facial numbness and tingling. She is also complaining of headache. Acute transient Facial paresthesia: with Probable small stroke. on MRI Brain has small focal restriction diffusion over the left temporal which could be cva vs artifact. I felt probable stroke since can go with his symptoms over right side. CT head is negative for acute process. CTA head/neck is negative. Left hand paresethesia could be TIA vs mononeuropathy such as carpal tunnel syndrome. confirmed over the right. And Cephalgia--improved. ESR is normal. Having sensation of empeeding doom yesterday with adreline crouch: Unsure cause--No further episodes Anxiety Elevated lactic acid vein---resolved. History of stroke and notify me he had some stroke affecting the eye about 3 to 4 years ago History of atrial fibrillation on Xarelto Diabetes mellitus and recent HbA1c is 6.7 on 07/2023 Hypertension Hyperlipidemia History of colon cancer status post resection and chemotherapy in 2017 Plan: MRI cervical spine since had episode of hand paresthesia: Pending If has recurrent abnormal complaint of doom, or recurrent transient neurological issues, will consider repeat EEG. He was on Xarelto his home medication for A-fib. It seems that the patient was placed on aspirin 81mg daily. Patient is on pravastatin 40 mg nightly. Recommend EMG with NCS of left upper extremity as outpatient. Psychiatry is consulted Will defer the rest of the medical management to primary and other specialist Plan discussed with patient, his who is at bedside and primary team nurse practitioner. Time with Patient: Less than 30
--- NOTE | 2023-11-25 15:25 | P.PN ---
Subjective Progress Note Date: 11/25/23 Hospital course: Patient is a pleasant 73-year-old male with a past medical history of CAD status post stenting, atrial fibrillation on anticoagulation with Xarelto, hypertension, hyperlipidemia, hypothyroidism, GERD, insulin-dependent diabetes mellitus, and colon cancer status post bowel resection and chemotherapy in remission since 2017. He presented to the emergency department with a chief complaint of "feeling impending doom" along with right-sided facial numbness and tingling/numbness of right hand. On arrival to our facility, patient underwent evaluation in the emergency department. Vital signs upon arrival show blood pressure 192/85, heart rate 82, respiratory rate 18, temp 97.4 F, and SpO2 of 96% on room air. EKG was completed showing atrial fibrillation with a controlled ventricular rate of 74 bpm and frequent PVCs. CT brain was completed negative for acute intracranial process. Labs completed and reviewed. CBC s howing thrombocytopenia with platelet count of 142 otherwise normal findings. Coagulation profile normal findings. BMP showing mild hyperchloremia with chloride of 108 otherwise normal findings. Blood glucose was elevated at 248. Initial lactate was 3.7. Troponin was negative at less than 0.012. Urinalysis negative for infection. Patient was admitted under services with consultation to neurology and psychiatry for evaluation. MRI brain revealed tiny focus of restricted diffusion within the cortex of the left temporal lobe may represent acute ischemia. EEG was completed showing normal routine EEG with no evidence of focal slowing, epileptiform discharge, or seizure activity. Physical exam: Patient was seen and fully evaluated at bedside this morning. He was sleeping at time of assessment but easily awoken via verbal stimuli. Patient reports feeling a little better this morning and denies any further episodes of paresthesias or feeling of impending doom. Patient continues to report mild anxiety, but does admit that it is better controlled. Vital signs reviewed and stable. General: Nontoxic, no distress and appears stated age. Derm: Skin warm and dry, normal coloration for ethnicity. Head: Atraumatic, normocephalic and symmetric. Eyes: EOMs intact, no lid lag, and anicteric sclera Mouth: no lip lesions, mucus membranes moist Cardiovascular: Irregularly irregular, positive posterior tibial pulses bilaterally, and cap refill < 2 seconds. Lungs: Respirations even, regular, and unlabored on room air. Lungs CTA bilaterally, no rhonchi, no rales, no wheezing, and no accessory muscle usage. Abdominal: soft, nontender to palpation, no guarding, no appreciable organomegaly Ext: ROM intact. No gross muscle atrophy, no edema, no contractures Neuro: Speech clear, face symmetrical and CN II-XII grossly intact with no noted focal neuro deficits Psych: Alert and oriented to person, place, time, and situation. Patient pleasant and cooperative.. Assessment and Plan of Care: Right-sided facial and hand paresthesias Elevated D-dimer with reported feeling of impending doom, CTA negative for PE Severe Anxiety with depression Migraine headache, resolved -Neurology following and discussed plan of care with neurologist, Dr. Mooney and he is recommending for patient undergo MRI of cervical spine with further recommendations forthcoming based on these findings. -MRI brain revealed tiny focus of restricted diffusion within the cortex of the left temporal lobe may represent acute ischemia. -EEG was completed showing normal routine EEG with no evidence of focal slowing, epileptiform discharge, or seizure activity. -Psychiatry evaluated and discontinued Remeron and recommending patient to dis cuss with [facility] recommendations for gradual taper off of Restoril and Ativan and started patient on BuSpar 10 mg 3 times daily and Seroquel 50 mg nightly and 25 mg daily as needed for anxiety/agitation. -Continue neurochecks every 4 hours and Telemetry monitoring -Continue 81 mg daily and pravastatin 40 mg nightly. -Lipid profile showing elevated triglycerides of 261.00 and VLDL of 52.20. Added fenofibrate 154 mg daily to current medication regimen. -Patient to continue Restoril 15 mg nightly, Zoloft 200 mg daily, Ativan 2 mg twice daily, BuSpar 10 mg 3 times daily, Seroquel 50 mg nightly and 25 mg daily as needed for anxiety/agitation. -D-dimer slightly elevated at 0.88. CTA negative for PEs, stable pulmonary nodules unchanged since 2022 and hepatic steatosis. -TSH normal findings at 1.750. New onset diarrhea, resolved. -Possibly secondary to adverse effects of medication as patient was started on BuSpar 10 mg 3 times daily by psychiatry and diarrhea started shortly after second dose. -C. difficile was negative. Recurrent cardiac pauses -Patient with chronic persistent atrial fibrillation with frequent PVCs and was noted to have recurrent cardiac pauses on telemetry. All appear to be less than 3 seconds, however EKG repeated and cardiology was consulted. -Cardiology evaluated, recommending no further interventions from cardiac standpoint at this time. Diabetes mellitus with hyperglycemia -Continue Levemir 15 units nightly with glycemic protocol and NovoLog sliding scale. Lactic acidosis. Resolved after IV fluid hydration. Chronic atrial fibrillation Hypertension Hyperlipidemia History of CAD status post stenting -Patient free from chest pain, palpitations, or reports of shortness of breath. -Troponin negative at less than 0.012 and EKG showing atrial fibrillation with a controlled ventricular response at 74 bpm with frequent PVCs.. -Order placed for aspirin 324 mg p.o. x 1 dose and patient to continue daily medication regimen with aspirin 81 mg daily, amlodipine 10 mg daily, lisinopril 10 mg daily, pravastatin 40 mg nightly, and Xarelto 20 mg nightly. Thrombocytopenia, chronic and stable -Platelet count 150 this morning. GERD Continue home GI prophylaxis with Protonix 40 mg p.o. twice daily and Pepcid 20 mg daily. Data and imaging reviewed: Vital signs reviewed. Blood pressure 138/82, heart rate 74, respiratory rate 18, temp 97.7 F, and SpO2 of 99% on room air. Morning labs reviewed. Lipid profile showing elevated triglycerides of 261 and VLDL of 52.20. Have ranged from 169 up to 235 over the past 24 hours, awaiting hemoglobin A1c results. CODE STATUS: Full code DVT prophylaxis: Xarelto Discussed with: Patient and neurologist. Anticipated discharge date: Pending completion of cervical MRI. Anticipated discharge place: Home Patient was seen independently by Nurse Pracitioner. This document was prepared using [employer] dictation software. Please allow for errors in skiver heel tap, while rare they do occur. I reviewed the documentation as provided by the REGAN above, who is the original author of this note. I agree with the documented assessment and plan, with the following changes: none Objective - Vital Signs Vital signs: Vital Signs Temp 97.7 F 11/25/23 07:10 Pulse 74 11/25/23 07:10 Resp 18 11/25/23 07:10 BP 138/82 11/25/23 07:10 Pulse Ox 99 11/25/23 07:10 FiO2 21 11/24/23 08:12 Intake & Output 11/24/23 11/25/23 11/25/23 18:59 06:59 18:59 Other: Voiding Method Diaper # Voids 3 2 - Labs CBC & Chem 7: 11/24/23 11:18 11/24/23 11:18 Labs: Abnormal Lab Results - Last 24 Hours (Table) 11/24/23 11/24/23 11/24/23 Range/Units 11:18 11:18 11:35 MCHC 30.1 L (31.0-37.0) g/dL RDW 16.6 H (11.5-15.5) % Plt Count 118 L (150-450) k/uL Sodium 136 L (137-145) mmol/L Chloride 111 H (98-107) mmol/L Carbon Dioxide 20 L (22-30) mmol/L Glucose 186 H (74-99) mg/dL POC Glucose (mg/dL) 235 H (70-110) mg/dL Total Protein 6.2 L (6.3-8.2) g/dL Triglycerides (0.00-149.00) mg/dL VLDL Cholesterol, Calc (5.00-40.00) mg/dL 11/24/23 11/24/23 11/24/23 Range/Units 16:42 16:57 20:39 MCHC (31.0-37.0) g/dL RDW (11.5-15.5) % Plt Count (150-450) k/uL Sodium (137-145) mmol/L Chloride (98-107) mmol/L Carbon Dioxide (22-30) mmol/L Glucose (74-99) mg/dL POC Glucose (mg/dL) 215 H 219 H (70-110) mg/dL Total Protein (6.3-8.2) g/dL Triglycerides 261.00 H (0.00-149.00) mg/dL VLDL Cholesterol, Calc 52.20 H (5.00-40.00) mg/dL 11/25/23 Range/Units 05:54 MCHC (31.0-37.0) g/dL RDW (11.5-15.5) % Plt Count (150-450) k/uL Sodium (137-145) mmol/L Chloride (98-107) mmol/L Carbon Dioxide (22-30) mmol/L Glucose (74-99) mg/dL POC Glucose (mg/dL) 137 H (70-110) mg/dL Total Protein (6.3-8.2) g/dL Triglycerides (0.00-149.00) mg/dL VLDL Cholesterol, Calc (5.00-40.00) mg/dL Microbiology - Last 24 Hours (Table) 11/22/23 12:28 Stool Culture - Preliminary Stool
[2023-11-25 16:55] LABS: Glucose,Whole Blood 199 mg/dL (70-110)
[2023-11-25] MEDS: FENOFIBRATE 160 MG TAB PO SCH (16:59)
[2023-11-25 20:44] LABS: Glucose,Whole Blood 196 mg/dL (70-110)
[2023-11-26] MEDS: QUEtiapine 25 MG TAB PO PRN (00:01)
[2023-11-26 05:44] LABS: Glucose,Whole Blood 144 mg/dL (70-110)
[2023-11-26 10:45] LABS: HCT 47.8 % (39.6-50.0); HGB 14.5 g/dL (13.0-17.0); MCH 25.3 pg (27.0-32.0); MCHC 30.3 g/dL (32.0-37.0); MCV 83.4 FL (80.0-97.0); Mean Platelet Volume 10.6 FL (9.5-12.2); NRBC Per 100 WBC 0 X 10*3/uL (0.00-0.01); Platelet Count 155 X 10*3/uL (140-440); RBC 5.73 X 10*6/uL (4.40-5.60); RDW 17.1 % (11.5-14.5); WBC 6.34 X 10*3/uL (4.50-10.00)
[2023-11-26 10:54] LABS: ALT 25 U/L (10-49); AST 25 U/L (14-35); Albumin 4.1 g/dL (3.8-4.9); Albumin/Globulin Ratio 1.86 Ratio (1.60-3.17); Alkaline Phosphatase 91 U/L (41-126); Blood Urea Nitrogen 13.5 mg/dL (9.0-27.0); Calcium 9.7 mg/dL (8.7-10.3); Chloride 104 mmol/L (96-109); Globulin 2.2 g/dL (1.6-3.3); Glucose 160 mg/dL (70-110); Potassium 4.3 mmol/L (3.5-5.5); Sodium 138 mmol/L (135-145); Total Bilirubin 0.5 mg/dL (0.3-1.2); Total Protein 6.3 g/dL (6.2-8.2)
[2023-11-26 11:54] LABS: Glucose,Whole Blood 149 mg/dL (70-110)
--- NOTE | 2023-11-26 13:31 | P.PN ---
Subjective HISTORY OF PRESENT ILLNESS: This is a 73-year-old male with a past medical history significant for coronary artery disease, permanent atrial fibrillation, hyperlipidemia, diabetes, GERD, and anxiety. 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 We have been asked to see the patient in consultation for pauses on telemetry. Patient examin ed at the bedside. Patient initially presented to hospital with complaints of " feeling impending doom". He does report increased anxiety recently. He reports having left-sided facial numbness and tingling and also of his left hand. He states he is feeling much better this morning. He denies any chest pain or pressure. Telemetry reveals atrial fibrillation with controlled ventricular rate. Patient has had no significant pauses greater than 3 seconds. He does have frequent PVCs on telemetry. He denies any episodes of syncope. DIAGNOSTICS: - EKG reveals atrial fibrillation with controlled ventricular rate. PVCs. - Carotid Doppler: Negative for significant stenosis - EEG: Negative for seizure activity - CT angio: Dominant left vertebral artery. Mid left ICA is obscured due to swallowing motion artifact and not adequately assessed. Otherwise widely patent vertebral and carotid arteries of the neck. No large vessel intracranial or arterial occlusion, significant stenosis, or aneurysmal changes seen. - Laboratory data: WBC 7.5. Hemoglobin 14.0. Platelet count 150. Sodium 139. Potassium 3.7. BUN 9. Creatinine 0.75. TSH 1.750. - Current home cardiac medications include Xarelto 20 mg at night, Pravachol 20 mg at night, amlodipine 10 mg daily, lisinopril 10 mg daily. - Most recent echocardiogram obtained in July 2023 revealed ejection fraction 60-65%, trace MR - Lexiscan stress test performed in November 2018 was negative for ischemia Progress note November 24, 2023 Echocardiogram was a difficult study with limited views. LVEF appears grossly normal with 55 to 60%, moderate LVH, mild MR, mild RV dilatation 7/8 Patient seen and examined. Patient denies any chest pain or pressure. States overall he is feeling better. Remains in A. fib with heart rates controlled on monitor. PHYSICAL EXAM: VITAL SIGNS: Reviewed. GENERAL: Well-developed in no acute distress. HEENT: Head is normocephalic. Pupils are equal, round. Sclerae anicteric. Mucous membranes of the mouth are moist. Neck supple. No JVD or thyromegaly LUNGS: Respirations even and unlabored. Lungs essentially clear to auscultation bilaterally. HEART: Irregular rate and rhythm. S1 and S2 heard. ABDOMEN: Soft. Nondistended. Nontender. EXTREMITIES: Normal range of motion. No clubbing or cyanosis. Peripheral pulses intact. No lower extremity edema NEUROLOGIC: Awake and alert. Oriented x 3. ASSESSMENT: Left-sided facial and hand numbness Severe anxiety, improved Permanent atrial fibrillation with no significant pauses noted Frequent PVCs Coronary artery disease with previous PCI to the LAD, 2006, in [place] Hypertension Hyperlipidemia Diabetes Obesity: BMI 34.1 PLAN: Patient has been controlled from a cardiac standpoint with A. fib with controlled ventricular rates. Stable for discharge home on anticoagulation. Outpatient follow-up. Please call with any questions. Objective - Vital Signs Vital signs: Vital Signs Temp 98.0 F 11/26/23 07:27 Pulse 66 11/26/23 07:27 Resp 16 11/26/23 07:27 BP 131/78 11/26/23 07:27 Pulse Ox 95 11/26/23 07:27 FiO2 21 11/24/23 08:12 Intake & Output 11/25/23 11/26/23 11/26/23 18:59 06:59 18:59 Intake Total 200 Balance 200 Intake: Oral 200 Other: Voiding Method Diaper # Voids 3 2 - Labs CBC & Chem 7: 11/26/23 06:06 11/26/23 06:06 Labs: Abnormal Lab Results - Last 24 Hours (Table) 11/25/23 11/25/23 11/25/23 Range/Units 15:32 16:54 20:42 RBC (4.40-5.60) X 10*6/uL MCH (27.0-32.0) pg MCHC (32.0-37.0) g/dL RDW (11.5-14.5) % Glucose (70-110) mg/dL POC Glucose (mg/dL) 199 H 196 H (70-110) mg/dL Hemoglobin A1c 8.2 H (<=6.0) % 11/26/23 11/26/23 11/26/23 Range/Units 05:42 06:06 06:06 RBC 5.73 H (4.40-5.60) X 10*6/uL MCH 25.3 L (27.0-32.0) pg MCHC 30.3 L (32.0-37.0) g/dL RDW 17.1 H (11.5-14.5) % Glucose 160 H (70-110) mg/dL POC Glucose (mg/dL) 144 H (70-110) mg/dL Hemoglobin A1c (<=6.0) % 11/26/23 Range/Units 11:51 RBC (4.40-5.60) X 10*6/uL MCH (27.0-32.0) pg MCHC (32.0-37.0) g/dL RDW (11.5-14.5) % Glucose (70-110) mg/dL POC Glucose (mg/dL) 149 H (70-110) mg/dL Hemoglobin A1c (<=6.0) % Microbiology - Last 24 Hours (Table) 11/22/23 12:28 Stool Culture - Final Stool
--- NOTE | 2023-11-26 14:06 | P.PN ---
Subjective Progress Note Date: 11/26/23 Hospital course: Patient is a pleasant 73-year-old male with a past medical history of CAD status post stenting, atrial fibrillation on anticoagulation with Xarelto, hypertension, hyperlipidemia, hypothyroidism, GERD, insulin-dependent diabetes mellitus, and colon cancer status post bowel resection and chemotherapy in remission since 2017. He presented to the emergency department with a chief complaint of "feeling impending doom" along with right-sided facial numbness and tingling/numbness of right hand. On arrival to our facility, patient underwent evaluation in the emergency department. Vital signs upon arrival show blood pressure 192/85, heart rate 82, respiratory rate 18, temp 97.4 F, and SpO2 of 96% on room air. EKG was completed showing atrial fibrillation with a controlled ventricular rate of 74 bpm and frequent PVCs. CT brain was completed negative for acute intracranial process. Labs completed and reviewed. CBC s howing thrombocytopenia with platelet count of 142 otherwise normal findings. Coagulation profile normal findings. BMP showing mild hyperchloremia with chloride of 108 otherwise normal findings. Blood glucose was elevated at 248. Initial lactate was 3.7. Troponin was negative at less than 0.012. Urinalysis negative for infection. Patient was admitted under services with consultation to neurology and psychiatry for evaluation. MRI brain revealed tiny focus of restricted diffusion within the cortex of the left temporal lobe may represent acute ischemia. EEG was completed showing normal routine EEG with no evidence of focal slowing, epileptiform discharge, or seizure activity. Physical exam: Patient was seen and fully evaluated at bedside this morning. Patient reports feeling better this morning he states feeling less anxious and denies any further episodes of feeling of impending doom or anxiousness. Vital signs reviewed and stable. General: Nontoxic, no distress and appears stated age. Derm: Skin warm and dry, normal coloration for ethnicity. Head: Atraumatic, normocephalic and symmetric. Eyes: EOMs intact, no lid lag, and anicteric sclera Mouth: no lip lesions, mucus membranes moist Cardiovascular: Irregularly irregular, positive posterior tibial pulses bilaterally, and cap refill < 2 seconds. Lungs: Respirations even, regular, and unlabored on room air. Lungs CTA bilaterally, no rhonchi, no rales, no wheezing, and no accessory muscle usage. Abdominal: soft, nontender to palpation, no guarding, no appreciable organomegaly Ext: ROM intact. No gross muscle atrophy, no edema, no contractures Neuro: Speech clear, face symmetrical and CN II-XII grossly intact with no noted focal neuro deficits Psych: Alert and oriented to person, place, time, and situation. Patient plea ros and cooperative.. Assessment and Plan of Care: Right-sided facial and hand paresthesias, believed to be small CVA per findings on MRI Elevated D-dimer with reported feeling of impending doom, CTA negative for PE Severe Anxiety with depression Migraine headache, resolved -Neurology following and Dr. Mooney recommended patient undergo MRI of cervical spine with further recommendations forthcoming based on these findings. -MRI brain revealed tiny focus of restricted diffusion within the cortex of the left temporal lobe may represent acute ischemia. -EEG was completed showing normal routine EEG with no evidence of focal slowing, epileptiform discharge, or seizure activity. -Psychiatry evaluated and discontinued Remeron and recommending patient to discuss with [facility] recommendations for gradual taper off of Restoril and Ativan and started patient on BuSpar 10 mg 3 times daily and Seroquel 50 mg nightly and 25 mg daily as needed for anxiety/agitation. -Continue neurochecks every 4 hours and Telemetry monitoring -Continue 81 mg daily fenofibrate 160 mg daily, and pravastatin 40 mg nightly. (Plavix was not started as patient is on Xarelto and aspirin) -Lipid profile showing elevated triglycerides of 261.00 and VLDL of 52.20. -Patient to continue Restoril 15 mg nightly, Zoloft 200 mg daily, Ativan 2 mg twice daily, BuSpar 10 mg 3 times daily, Seroquel 50 mg nightly and 25 mg daily as needed for anxiety/agitation. -TSH normal findings at 1.750. New onset diarrhea, resolved. -Possibly secondary to adverse effects of medication as patient was started on BuSpar 10 mg 3 times daily by psychiatry and diarrhea started shortly after second dose but has since resolved. -C. difficile and stool culture was negative. Recurrent cardiac pauses -Patient with chronic persistent atrial fibrillation with frequent PVCs and was noted to have recurrent cardiac pauses on telemetry. All appear to be less than 3 seconds, however EKG repeated and cardiology was consulted. -Cardiology evaluated, recommending no further interventions. Clearing patient from cardiac standpoint at this time. Diabetes mellitus with hyperglycemia -Continue Levemir 15 units nightly with glycemic protocol and NovoLog sliding scale. Lactic acidosis. Resolved after IV fluid hydration. Chronic atrial fibrillation with a controlled ventricular rate Hypertension Hyperlipidemia History of CAD status post stenting -Patient free from chest pain, palpitations, or reports of shortness of breath. -Troponin negative at less than 0.012 and EKG showing atrial fibrillation with a controlled ventricular response at 74 bpm with frequent PVCs.. -Order placed for aspirin 324 mg p.o. x 1 dose and patient to continue daily medication regimen with aspirin 81 mg daily, amlodipine 10 mg daily, lisinopril 10 mg daily, pravastatin 40 mg nightly, and Xarelto 20 mg nightly. Thrombocytopenia, chronic and stable -Platelet count 150 this morning. GERD Continue home GI prophylaxis with Protonix 40 mg p.o. twice daily and Pepcid 20 mg daily. Data and imaging reviewed: Vital signs reviewed. Blood pressure 131/78, heart rate 66, respiratory rate 16, temp 98.0 F, and SpO2 of 95% on room air. Morning labs reviewed. Hemoglobin A1c was 8.2%. CBC showing no significant abnormalities. BMP unremarkable with exception of slightly elevated blood glucose level of 160. Magnesium was normal findings at 2.0. Liver profile was unremarkable. Plan is for discharge once MRI cervical spine is completed as recommended by neurologist. CODE STATUS: Full code DVT prophylaxis: Xarelto Discussed with: Patient and neurologist. Anticipated discharge date: Pending completion of cervical MRI. Anticipated discharge place: Home Patient was seen independently by Nurse Pracitioner. This document was prepared using [employer] dictation software. Please allow for errors in trial manager, while rare they do occur. . I reviewed the documentation as provided by the REGAN above, who is the original author of this note. I agree with the documented assessment and plan, with the following changes: none Objective - Vital Signs Vital signs: Vital Signs Temp 98.0 F 11/26/23 08:00 Pulse 66 11/26/23 08:00 Resp 16 11/26/23 08:00 BP 131/78 11/26/23 08:00 Pulse Ox 95 11/26/23 08:00 FiO2 21 11/24/23 08:12 Intake & Output 11/25/23 11/26/23 11/26/23 18:59 06:59 18:59 Intake Total 200 Balance 200 Intake: Oral 200 Other: Voiding Method Diaper # Voids 3 2 - Labs CBC & Chem 7: 11/26/23 06:06 11/26/23 06:06 Labs: Abnormal Lab Results - Last 24 Hours (Table) 11/25/23 11/25/23 11/25/23 Range/Units 11:22 15:32 16:54 POC Glucose (mg/dL) 192 H 199 H (70-110) mg/dL Hemoglobin A1c 8.2 H (<=6.0) % 11/25/23 11/26/23 Range/Units 20:42 05:42 POC Glucose (mg/dL) 196 H 144 H (70-110) mg/dL Hemoglobin A1c (<=6.0) % Microbiology - Last 24 Hours (Table) 11/22/23 12:28 Stool Culture - Preliminary Stool
[2023-11-26 17:13] LABS: Glucose,Whole Blood 202 mg/dL (70-110)
--- NOTE | 2023-11-26 17:27 | P.PN ---
Subjective Progress Note Date: 11/26/23 Patient initially seen by Dr. Scott Mooney. Please refer to his note for details. Patient is a 73-year-old male with right facial paresthesias and left hand paresthesia. Patient also has sensation of impending doom and adrenaline crouch of unsure cause. EEG was normal. MRI of the brain showed some focal restriction diffusion over the left temporal region which could be CVA versus artifact. Dr. Mooney felt possible stroke because goes with facial symptoms. He also ordered MRI of the cervical spine. Patient is on Xarelto for atrial fibrillation and also on aspirin. Patient at present is sitting comfortably in the bed. He states that he had some lightheadedness this morning. He does have some sinus headache. Denies any numbness or tingling. Patient is very hard of hearing. Some of the work-up during this hospital visit consisted of: Blood cell has been within normal limits. Plasma lactic acid vein as high as 3.9 minutes resolved. TSH is 1.750 ESR 9 Ammonia level is less than 9 Vitamin B12: 438 Serum folate: 12.60 Lipid panel: TG 261, Cholestrol 184, LDL 85 and HDL 46 Sodium, calcium, phosphorus, AST ALT are within normal limits. CT head is reported as no acute intracranial abnormality. I reviewed the CT and I agree there is no acute or subacute stroke. Routine EEG: Is normal. Carotid duplex: No significant stenosis, antegrade flow in both vertebral a rteries. Impression section is empty. CTA head: Is reported as no large vessel intracranial arterial occlusion, significant stenosis or aneurysm changes seen. Anatomic variation with hypoplastic V4 segment right vertebral artery following PICA takeoff and a hypoplastic A1 segment left FRAN. CTA neck: Dominant left vertebral artery. The mid left ICA is obscured due to swallowing motion artifact and not adequate assessed. Otherwise widely patent vertebral and carotid artery of the neck. MRI of the brain is reported as tiny focus of restricted diffusion within the cortex of left temporal lobe may represent acute ischemia versus artifact attention on follow-up imaging MRI within 1 to 2 months. I personally reviewed the MRI and I felt the patient did have restriction diffusion over that region and it was only 1 spot tiny. 2D echo: Normal left ventricular size systolic function. Limited Doppler study with no gross abnormality Objective - Vital Signs Vital signs: Vital Signs Temp 98.2 F 11/26/23 13:38 Pulse 64 11/26/23 13:38 Resp 17 11/26/23 13:38 BP 108/67 11/26/23 13:38 Pulse Ox 94 L 11/26/23 13:38 FiO2 21 11/24/23 08:12 Intake & Output 11/25/23 11/26/23 11/26/23 18:59 06:59 18:59 Intake Total 200 Balance 200 Intake: Oral 200 Other: Voiding Method Diaper Diaper # Voids 3 2 - Exam Patient is alert and awake, sitting on the side of the bed, having his dinner. He is getting ready for MRI. Speech and language functions are normal. Patient knows it is November and there is 2023 and that she is in [facility]. Pupils are equal, round and reacting, visual major are full with no neglect, face is symmetric and tongue protrudes to midline. He is very hard of hearing. On muscle strength testing there is no pronator drift and the strength is normal in arms and legs. No ataxia for [id number] testing. - Labs CBC & Chem 7: 11/26/23 06:06 11/26/23 06:06 Labs: Abnormal Lab Results - Last 24 Hours (Table) 11/25/23 11/25/23 11/26/23 Range/Units 15:32 20:42 05:42 RBC (4.40-5.60) X 10*6/uL MCH (27.0-32.0) pg MCHC (32.0-37.0) g/dL RDW (11.5-14.5) % Glucose (70-110) mg/dL POC Glucose (mg/dL) 196 H 144 H (70-110) mg/dL Hemoglobin A1c 8.2 H (<=6.0) % 11/26/23 11/26/23 11/26/23 Range/Units 06:06 06:06 11:51 RBC 5.73 H (4.40-5.60) X 10*6/uL MCH 25.3 L (27.0-32.0) pg MCHC 30.3 L (32.0-37.0) g/dL RDW 17.1 H (11.5-14.5) % Glucose 160 H (70-110) mg/dL POC Glucose (mg/dL) 149 H (70-110) mg/dL Hemoglobin A1c (<=6.0) % 11/26/23 Range/Units 17:12 RBC (4.40-5.60) X 10*6/uL MCH (27.0-32.0) pg MCHC (32.0-37.0) g/dL RDW (11.5-14.5) % Glucose (70-110) mg/dL POC Glucose (mg/dL) 202 H (70-110) mg/dL Hemoglobin A1c (<=6.0) % Microbiology - Last 24 Hours (Table) 11/22/23 12:28 Stool Culture - Final Stool Assessment and Plan Assessment: Probable acute ischemic stroke, very tiny, involving left temporal cortex region. CTA head/neck is negative. Cephalgia--improved. ESR is normal. Having sensation of impending doom yesterday with adreline crouch: Unsure cause--No further episodes. Probably due to anxiety disorder. Anxiety Elevated lactic acid vein---resolved. History of stroke and notified Dr. Mooney that he had some stroke affecting the eye about 3 to 4 years ago History of atrial fibrillation on Xarelto Diabetes mellitus and recent HbA1c is 6.7 on 07/2023 Hypertension Hyperlipidemia History of colon cancer status post resection and chemotherapy in 2017 Plan: Await MRI cervical spine since had episode of hand paresthesia Patient was taking Xarelto, his home medication for A-fib. It seems that aspirin 81 mg has been added to the regimen. Patient is on pravastatin 40 mg nightly. Recommend EMG with NCS of left upper extremity as outpatient. Hemoglobin A1c 8.2. Recommend optimize control of diabetes to target A1c <7.0. Continue statins. Psychiatry is consulted Will defer the rest of the medical management to primary and other specialist
[2023-11-26 20:59] LABS: Glucose,Whole Blood 190 mg/dL (70-110)
--- NOTE | 2023-11-26 21:06 | MR ---
EXAMINATION TYPE: MR cervical spine wo con DATE OF EXAM: 11/26/2023 COMPARISON: None HISTORY: Hand paresthesia, CONTRAST: Performed utilizing 0 mL intravenous Gadavist gadolinium contrast. TECHNIQUE: Multiplanar multiecho imaging on a 3.0 Katt magnet is performed through the cervical spin e. FINDINGS: The craniovertebral junction is normal. Vertebral body alignment is normal. C7-T1: No focal disc herniation or significant disc bulge is evident. No spinal canal stenosis or n eural foraminal stenosis is present. C6-7: No focal disc herniation or significant disc bulge is evident. No spinal canal stenosis or zana ral foraminal stenosis is present. C5-6: Minimal disc bulge may present with anterior thecal sac flattening. No AP spinal canal stenosis or neural foraminal stenosis is present. C4-5: No focal disc herniation or significant disc bulge is evident. No spinal canal stenosis or zana ral foraminal stenosis is present. C3-4: There is a large broad-based disc bulge central and right paracentral with moderate anterior th ecal sac compression. Cord contact and cord deformity is present greater on the right. Signal abnorma lity within the cord is not identified. Severe right C3-4 foraminal stenosis is present. C2-3: Mild central spurring with associated disc material is present. No cord contact or spinal canal stenosis is present. Neural foramen are patent.. IMPRESSION: 1. Large central right paracentral disc bulge C3-4 moderate anterior thecal sac impression. This has cord contact and cord deformity. 2. Severe right foraminal stenosis C3-4. 3. Mild disc bulging C5-6 without cord contact or stenosis
[2023-11-27 06:05] LABS: Glucose,Whole Blood 146 mg/dL (70-110)
[2023-11-27 07:40] VITALS: BMI 34.1
[2023-11-27 11:14] LABS: Glucose,Whole Blood 215 mg/dL (70-110)
[2023-11-27 12:59] VITALS: BP 144/85; PULSE 75; RESP 16; TEMP 98
--- NOTE | 2023-11-27 15:02 | P.DS ---
Providers Date of admission: 11/20/23 21:17 Expected date of discharge: 11/27/23 Attending physician: Yasmine Soto MD Consults: 11/20/23 21:14 Consult Physician Routine Consulting Provider: Scott Mooney Consult Reason/Comments: ams Do you want consulting provider notified?: Yes Consult Physician Routine Consulting Provider: Geovany Marshall Consult Reason/Comments: anxiety Do you want consulting provider notified?: Yes 11/27/23 08:09 Consult Physician Routine Consulting Provider: Dm Ayers Consult Reason/Comments: cervical disc bulge w/ cord compression and deformity. RUE parastethesias Do you want consulting provider notified?: Yes Primary care physician: [facility] Hospital Course: Discharge Diagnosis: Right-sided facial and hand paresthesias, believed to be small CVA per findings on MRI. Continue 81 mg daily fenofibrate 160 mg daily, and pravastatin 40 mg nightly. (Plavix was not started as patient is on Xarelto and aspirin) Disc bulge C3-C4 with moderate anterior thecal sac compression and cord contact with cord deformity. Patient evaluated by orthospine surgery team, discussed treatment options with patient. No emergent orthopedic surgical intervention is needed at this time patient to follow-up outpatient in their office in 2 weeks for reevaluation and further discussion of treatment options. At this time patient to continue with conservative measures and may consider physical therapy in the outpatient setting. Elevated D-dimer with reported feeling of impending doom, CTA negative for PE Severe Anxiety with depression. Psychiatry evaluated and discontinued Remeron and recommending patient to discuss with his [place] psychiatrist recommendations for gradual taper off of Restoril and Ativan and started patient on BuSpar 10 mg 3 times daily and Seroquel 50 mg nightly and 25 mg twice daily. Migraine headache, resolved Recurrent cardiac pauses Patient with chronic persistent atrial fibrillation with frequent PVCs and was noted to have recurrent cardiac pauses on telemetry. All appear to be less than 3 seconds, however EKG repeated and cardiology was consulted. Cardiology evaluated, recommending no further interventions. Diabetes mellitus with hyperglycemia. Continue Levemir 15 units nightly, Jardi ance 25 mg daily, and glipizide 20 mg twice daily. Lactic acidosis. Resolved after IV fluid hydration. New onset diarrhea, resolved. Likely secondary to adverse effects of medication as patient was started on BuSpar 10 mg 3 times daily by psychiatry and diarrhea started shortly after second dose but has since resolved. C. difficile and stool culture were negative. Chronic atrial fibrillation with a controlled ventricular rate. Continue daily medication regimen with Xarelto 20 mg nightly. Hypertension. Continue daily medication regimen with amlodipine 10 mg daily and lisinopril 10 mg daily. Hyperlipidemia. Lipid profile showing elevated triglycerides of 261.00 and VLDL of 52.20. Continue daily medication regimen with pravastatin 40 mg nightly and fenofibrate 160 mg daily. History of CAD status post stenting. Continue daily medication regimen with aspirin 81 mg daily, amlodipine 10 mg daily, lisinopril 10 mg daily, pravastatin 40 mg nightly, Xarelto 20 mg nightly. Thrombocytopenia, chronic and stable GERD. Continue home GI prophylaxis with Protonix 40 mg p.o. twice daily and Pepcid 20 mg daily. Hospital course: Patient is a pleasant 73-year-old male with a past medical history of CAD status post stenting, atrial fibrillation on anticoagulation with Xarelto, hypertension, hyperlipidemia, hypothyroidism, GERD, insulin-dependent diabetes mellitus, and colon cancer status post bowel resection and chemotherapy in remission since 2017. He presented to the emergency department with a chief complaint of "feeling impending doom" along with right-sided facial numbness and tingling/numbness of right hand. On arrival to our facility, patient underwent evaluation in the emergency department. Vital signs upon arrival show blood pressure 192/85, heart rate 82, respiratory rate 18, temp 97.4 F, and SpO2 of 96% on room air. EKG was completed showing atrial fibrillation with a controlled ventricular rate of 74 bpm and frequent PVCs. CT brain was completed negative for acute intracranial process. Labs completed and reviewed. CBC showing thrombocytopenia with platelet count of 142 otherwise normal findings. Coagulation profile normal findings. BMP showing mild hyperchloremia with chloride of 108 otherwise normal findings. Blood glucose was elevated at 248. Initial lactate was 3.7. Troponin was negative at less than 0.012. Urinalysis negative for infection. Patient was admitted under services with consultation to neurology and psychiatry for evaluation. MRI brain revealed tiny focus of restricted diffusion within the cortex of the left temporal lobe may represent acute ischemia. EEG was completed showing normal routine EEG with no evidence of focal slowing, epileptiform discharge, or seizure activity. Cervical spine MRI showing a large central right paracentral disc bulge at C3-C4 with moderate anterior thecal sac compression with cord contact and cord deformity, severe right foraminal stenosis C3-C4 and mild disc bulging at C5-C6 without cord conta ct or stenosis. Orthospine surgery team consulted. Patient evaluated by orthospine surgery team, discussed treatment options with patient. No emergent orthopedic surgical intervention is needed at this time patient to follow-up outpatient in their office in 2 weeks for reevaluation and further discussion of treatment options. At this time patient to continue with conservative measures and may consider physical therapy in the outpatient setting. Medically, patient is stable for discharge at this time. Patient to follow-up outpatient with PCP in 1 to 2 days, hospital supervisor in 1 week, neurologist in 2 weeks, and orthospine surgery team as scheduled. Physical exam: Vital signs reviewed and stable. General: Nontoxic, no distress and appears stated age. Derm: Skin warm and dry, normal coloration for ethnicity. Head: Atraumatic, normocephalic and symmetric. Eyes: EOMs intact, no lid lag, and anicteric sclera Mouth: no lip lesions, mucus membranes moist Cardiovascular: Irregularly irregular, positive posterior tibial pulses bilaterally, and cap refill < 2 seconds. Lungs: Respirations even, regular, and unlabored on room air. Lungs CTA bilaterally, no rhonchi, no rales, no wheezing, and no accessory muscle usage. Abdominal: soft, nontender to palpation, no guarding, no appreciable organomeg crystal Ext: ROM intact. No gross muscle atrophy, no edema, no contractures Neuro: Speech clear, face symmetrical and CN II-XII grossly intact with no noted focal neuro deficits Psych: Alert and oriented to person, place, time, and situation. Patient pleasant and cooperative.. A total of 41 minutes of time were spent preparing this complex discharge summary. Pt was discharged on 11/27/2023 at 2:53 PM. Patient was seen independently by Nurse Practitioner. This document was prepared using [employer] dictation software. Please allow for errors in splitting machine tender while rare they do occur. Patient Condition at Discharge: Stable Plan - Discharge Summary New Discharge Prescriptions: New QUEtiapine [SEROquel] 25 mg PO BID PRN 30 Days #60 tab PRN Reason: anxiety/agitation QUEtiapine [SEROquel] 50 mg PO HS 30 Days #30 tab Aspirin 81 mg PO DAILY 30 Days #30 tab busPIRone HCl [Buspar] 10 mg PO TID 30 Days #90 tab Fenofibrate [Lofibra] 160 mg PO DAILY 30 Days #30 tab Continue Pravastatin Sodium [Pravachol] 40 mg PO HS Potassium Chloride [Klor-Con 20] 20 meq PO DAILY allopurinoL [Zyloprim] 100 mg PO HS Sertraline HCl [Zoloft] 200 mg PO DAILY Rivaroxaban [Xarelto] 20 mg PO HS Insulin Glargine,Hum.rec.anlog [Lantus Solostar Pen] 15 unit SQ HS Famotidine 20 mg PO DAILY hydrOXYzine HCL [Atarax] 10 mg PO QID PRN PRN Reason: Anxiety amLODIPine [Norvasc] 10 mg PO DAILY Empagliflozin [Jardiance] 25 mg PO DAILY Pantoprazole [Protonix] 40 mg PO BID glipiZIDE [Glucotrol] 20 mg PO AC-BID Temazepam [Restoril] 15 mg PO HS Acetaminophen Tab [Tylenol] 1,000 mg PO Q6HR PRN #30 tablet PRN Reason: Pain LORazepam [Ativan] 2 mg PO BID lisinopriL [Zestril] 10 mg PO DAILY Discontinued Mirtazapine [Remeron] 45 mg PO HS Temazepam 7.5 mg PO HS Discharge Medication List Potassium Chloride [Klor-Con 20] 20 meq PO DAILY 01/15/14 [History] Pravastatin Sodium [Pravachol] 40 mg PO HS 01/15/14 [History] allopurinoL [Zyloprim] 100 mg PO HS 07/28/15 [History] Sertraline HCl [Zoloft] 200 mg PO DAILY 11/05/15 [History] Rivaroxaban [Xarelto] 20 mg PO HS 07/27/17 [History] Empagliflozin [Jardiance] 25 mg PO DAILY 06/10/21 [History] Famotidine 20 mg PO DAILY 06/10/21 [History] Insulin Glargine,Hum.rec.anlog [Lantus Solostar Pen] 15 unit SQ HS 06/10/21 [History] Pantoprazole [Protonix] 40 mg PO BID 06/10/21 [History] glipiZIDE [Glucotrol] 20 mg PO AC-BID 08/14/22 [History] Temazepam [Restoril] 15 mg PO HS 07/24/23 [History] Acetaminophen Tab [Tylenol] 1,000 mg PO Q6HR PRN #30 tablet 07/27/23 [Rx] hydrOXYzine HCL [Atarax] 10 mg PO QID PRN 08/06/23 [History] LORazepam [Ativan] 2 mg PO BID 08/11/23 [History] amLODIPine [Norvasc] 10 mg PO DAILY 11/21/23 [History] lisinopriL [Zestril] 10 mg PO DAILY 11/21/23 [History] Aspirin 81 mg PO DAILY 30 Days #30 tab 11/27/23 [Rx] Fenofibrate [Lofibra] 160 mg PO DAILY 30 Days #30 tab 11/27/23 [Rx] QUEtiapine [SEROquel] 25 mg PO BID PRN 30 Days #60 tab 11/27/23 [Rx] QUEtiapine [SEROquel] 50 mg PO HS 30 Days #30 tab 11/27/23 [Rx] busPIRone HCl [Buspar] 10 mg PO TID 30 Days #90 tab 11/27/23 [Rx] Follow up Appointment(s)/Referral(s): Ashutosh Mcginnis MD [Medical Doctor] - 1 Week (Office is not answering at time of discharge. Please call for follow-up appointment.) Jimbo Garcia MD [REFERRING] - 1 Week (Office is closed at time of discharge. Please call for follow-up appointment.) Dm Ayers DO [Doctor of Osteopathic Medicine] - 11/28/23 9:45 am (Please bring discharge paperwork and arrive at 9:15.) [facility] [Primary Care Provider] - 1-2 days (Office is not answering at time of discharge.) Patient Instructions/Handouts: Cervical Spinal Stenosis (DC), Anxiety (ED), Stroke (DC) Activity/Diet/Wound Care/Special Instructions: Activity: As tolerated. Take breaks as needed. Diet: Heart healthy and carb consistent diet. Avoid salts, or foods with hidden salts such as canned or boxed foods and frozen dinners. Extra salt makes your heart work harder and traps the fluid in your body for longer. Special Instructions: Take all of your medications as directed and remember to keep all of your doctor's appointments and follow-up as needed. Psychiatry recommending patient to discuss with your [facility] the recommendations for gradual taper off of Restoril and Ativan. Thank you for allowing us to participate in your care, it was truly a pleasure having you for our patient!!! .
[2023-11-27 16:38] LABS: Glucose,Whole Blood 226 mg/dL (70-110)
--- NOTE | 2023-11-27 16:49 | P.CNOR ---
History of Present Illness - [facility] Consult date: 11/27/23 Consult reason: other (C3-C4 disc herniation) History of present illness: Patient is a 73-year-old male who was admitted to [facility] on 11/20/2023 due to multiple medical issues, these to include bilateral lower extremity weakness, facial numbness, worsening anxiety. Patient is being admitted to the hospital by internal medicine, he is being followed by cardiology and neurology. There was a workup and determination of a likely ischemic stroke. Patient had continued to complain of some numbness and tingling to the left upper extremity, a cervical MRI was done. Due to the findings of the cervical MRI our orthopedic team was consulted on 11/27/2023. Patient was evaluated today at bedside, he was resting comfortably. He was able to sit at the bed during the exam and follow all my commands and move with no significant difficulties. He states he has had the numbness and tingling in the left arm for the last week or so. He denies any trauma. He denies any cervical spine surgery. He denies any june loss of motion of the bilateral upper or lower extremities. He denies any genital or perineal numbness or tingling. He denies any loss of bowel or bladder function. He denies any paresthesias of the right upper extremity or bilateral lower extremities at this time. Review of Systems Constitutional: Reports as per HPI Past Medical History Past Medical History: Atrial Fibrillation, Coronary Artery Disease (CAD), Cancer, Heart Failure, Diabetes Mellitus, GERD/Reflux, Hyperlipidemia, Hypertension, Myocardial Infarction (MA), Sleep Apnea/CPAP/BIPAP, Thyroid Disorder Additional Past Medical History / Comment(s): gout, skin ca, colon cancer with resection and chemo (2017)., c-pap machine., ulcer on side of right great toe- receives wound tx ., BPH., gall bladder pain. Last Myocardial Infarction Date:: 2006 History of Any Multi-Drug Resistant Organisms: MRSA Year Discovered:: 2022 MDRO Source:: right great toe Past Surgical History: Appendectomy, Bowel Resection, Heart Catheterization With Stent, Orthopedic Surgery Additional Past Surgical History / Comment(s): skin ca removed, lt shoulder surgery ,rt knee surgery, deviated septum surgery Past Anesthesia/Blood Transfusion Reactions: No Reported Reaction Date of Last Stent Placement:: 2006 Past Psychological History: Anxiety, Bipolar, Depression Smoking Status: Former smoker Past Alcohol Use History: Occasional Past Drug Use History: None Reported - Past Family History Father Family Medical History: Asthma, Hyperlipidemia Additional Family Medical History / Comment(s): at age 61. was a heavy smoker,prostate sx a week before he not sure what took him. Mother Family Medical History: Dementia Additional Family Medical History / Comment(s): at age 75 from alzheimers Medications and Allergies Home Medications Medication Instructions Recorded Confirmed Type Potassium Chloride [Klor-Con 20] 20 meq PO DAILY 01/15/14 11/21/23 History Pravastatin Sodium [Pravachol] 40 mg PO HS 01/15/14 11/21/23 History allopurinoL [Zyloprim] 100 mg PO HS 07/28/15 11/21/23 History Sertraline HCl [Zoloft] 200 mg PO DAILY 11/05/15 11/21/23 History Rivaroxaban [Xarelto] 20 mg PO HS 07/27/17 11/21/23 History Empagliflozin [Jardiance] 25 mg PO DAILY 06/10/21 11/21/23 History Famotidine 20 mg PO DAILY 06/10/21 11/21/23 History Insulin Glargine,Hum.rec.anlog 15 unit SQ HS 06/10/21 11/21/23 History [Lantus Solostar Pen] Pantoprazole [Protonix] 40 mg PO BID 06/10/21 11/21/23 History glipiZIDE [Glucotrol] 20 mg PO AC-BID 08/14/22 11/21/23 History Temazepam [Restoril] 15 mg PO HS 07/24/23 11/21/23 History Acetaminophen Tab [Tylenol] 1,000 mg PO Q6HR PRN #30 tablet 07/27/23 11/21/23 Rx hydrOXYzine HCL [Atarax] 10 mg PO QID PRN 08/06/23 11/21/23 History LORazepam [Ativan] 2 mg PO BID 08/11/23 11/21/23 History amLODIPine [Norvasc] 10 mg PO DAILY 11/21/23 11/21/23 History lisinopriL [Zestril] 10 mg PO DAILY 11/21/23 11/21/23 History Aspirin 81 mg PO DAILY 30 Days #30 tab 11/27/23 Rx Fenofibrate [Lofibra] 160 mg PO DAILY 30 Days #30 tab 11/27/23 Rx QUEtiapine [SEROquel] 25 mg PO BID PRN 30 Days #60 tab 11/27/23 Rx QUEtiapine [SEROquel] 50 mg PO HS 30 Days #30 tab 11/27/23 Rx busPIRone HCl [Buspar] 10 mg PO TID 30 Days #90 tab 11/27/23 Rx Allergies Allergy/AdvReac Type Severity Reaction Status Date / Time clopidogrel bisulfate Allergy Rash/Hives Verified 11/21/23 10:11 [From Plavix] Sulfa (Sulfonamide Allergy Rash/Hives Verified 11/21/23 10:11 Antibiotics) gabapentin AdvReac Aggression, Verified 11/21/23 10:11 anxiety, mood swings metformin AdvReac Diarrhea Verified 11/21/23 10:11 morphine AdvReac Hallucinati Verified 11/21/23 10:11 ons pregabalin [From Lyrica] AdvReac Aggression, Verified 11/21/23 10:11 anxiety, mood swings Physical Examination Gen: AOx3, NAD VSS stable at this time Integument: No open lesions, sores, areas of erythema to the cervical spine Palpation: No significant tenderness with palpation to the paraspinal or midline region of the cervical spine ROM: Full range of motion in all major muscle groups of bilateral upper and lower extremities, no focal deficits appreciated Sensory Exam: Senory exam to light touch is intact C5-T1 Senosry exam to light touch is intact L2-S1 Motor: 5/5 strength appreciated the bilateral upper extremities with shoulder elevation, shoulder abduction, elbow extension, elbow flexion, wrist extension, wrist flexion, insole filler 5/5 strength appreciated the bilateral lower extremities with hip flexion, knee extension, knee flexion, plantarflexion, dorsiflexion, EHL, FHL Reflexes: 2/4 in all UE and LE Negative Jimbo's bilaterally Negative Babinski bilaterally Negative clonus bilaterally Special Test: Negative straight leg raise bilaterally Results - Labs Labs: Abnormal Lab Results - Last 24 Hours (Table) 11/26/23 11/26/23 11/27/23 Range/Units 17:12 20:57 06:04 POC Glucose (mg/dL) 202 H 190 H 146 H (70-110) mg/dL 11/27/23 Range/Units 11:13 POC Glucose (mg/dL) 215 H (70-110) mg/dL H & H 11/20/23 11/21/23 11/22/23 Range/Units 19:05 02:02 06:58 Hgb 15.2 13.5 14.0 (13.0-17.5) gm/dL Hct 50.1 44.3 47.9 (39.0-53.0) % 11/24/23 11/26/23 Range/Units 11:18 06:06 Hgb 14.3 14.5 (13.0-17.5) gm/dL Hct 47.6 47.8 (39.0-53.0) % Coagulation 11/20/23 Range/Units 19:05 INR 1.0 (<1.2) Result Diagrams: 11/26/23 06:06 11/26/23 06:06 Assessment and Plan Assessment: Left upper extremity paresthesias C3-C4 herniated disc C3-C4 spondylosis C3-C4 foraminal stenosis Multiple medical comorbidities Plan: Imaging: I was able to review the cervical MRI with and without contrast with Dr. Cnaela sent. Evidence of disc herniation at C3-C4, this is causing some thecal sac compression. There is also right-sided foraminal stenosis at C3-C4 noted. No significant myelomalacia appreciated Plan: After discussing the case, this to include both physical exam findings and imaging studies my attending Dr. Bernardo and. No emergent orthopedic surgical intervention is recommended at this time. Patient is demonstrating no acute myelopathic signs Recommending conservative measures at this time, could consider physical therapy in the outpatient setting Recommending follow-up with Dr. Ayers in the outpatient setting in the next 2 to 3 weeks for reevaluation Orthopedically patient is stable for discharge to home Time with Patient: Less than 30
--- NOTE | 2023-11-28 11:23 | P.PN ---
Subjective Progress Note Date: 11/27/23 11/27/2023: Patient was seen for a follow-up. Patient is laying comfortably in the bed. 11/26/2023: Patient initially seen by Dr. Scott Mooney. Please refer to his note for details. Patient is a 73-year-old male with right facial paresthesias and left hand paresthesia. Patient also has sensation of impending doom and adrenaline crouch of unsure cause. EEG was normal. MRI of the brain showed some focal restriction diffusion over the left temporal region which could be CVA versus artifact. Dr. Mooney felt possible stroke because goes with facial symptoms. He also ordered MRI of the cervical spine. Patient is on Xarelto for atrial fibrillation and also on aspirin. Patient at present is sitting comfortably in the bed. He states that he had some lightheadedness this morning. He does have some sinus headache. Denies any numbness or tingling. Patient is very hard of hearing. Some of the work-up during this hospital visit consisted of: Blood cell has been within normal limits. Plasma lactic acid vein as high as 3.9 minutes resolved. TSH is 1.750 ESR 9 Ammonia level is less than 9 Vitamin B12: 438 Serum folate: 12.60 Lipid panel: TG 261, Cholestrol 184, LDL 85 and HDL 46 Sodium, calcium, phosphorus, AST ALT are within normal limits. CT head is reported as no acute intracranial abnormality. I reviewed the CT and I agree there is no acute or subacute stroke. Routine EEG: Is normal. Carotid duplex: No significant stenosis, antegrade flow in both vertebral arteries. Impression section is empty. CTA head: Is reported as no large vessel intracranial arterial occlusion, significant stenosis or aneurysm changes seen. Anatomic variation with hypoplastic V4 segment right vertebral artery following PICA takeoff and a hypoplastic A1 segment left FRAN. CTA neck: Dominant left vertebral artery. The mid left ICA is obscured due to swallowing motion artifact and not adequate assessed. Otherwise widely patent v ertebral and carotid artery of the neck. MRI of the brain is reported as tiny focus of restricted diffusion within the cortex of left temporal lobe may represent acute ischemia versus artifact attention on follow-up imaging MRI within 1 to 2 months. I personally reviewed the MRI and I felt the patient did have restriction diffusion over that region and it was only 1 spot tiny. 2D echo: Normal left ventricular size systolic function. Limited Doppler study with no gross abnormality Objective - Vital Signs Vital signs: Vital Signs Temp 98.0 F 11/27/23 12:59 Pulse 75 11/27/23 12:59 Resp 16 11/27/23 12:59 BP 144/85 11/27/23 12:59 Pulse Ox 96 11/27/23 12:59 FiO2 21 11/27/23 03:28 Intake & Output 11/26/23 11/27/23 11/27/23 18:59 06:59 18:59 Weight 107.955 kg Other: Voiding Method Diaper Diaper Toilet # Voids 4 2 # Bowel Movements 2 - Labs CBC & Chem 7: 11/26/23 06:06 11/26/23 06:06 Labs: Abnormal Lab Results - Last 24 Hours (Table) 11/26/23 11/26/23 11/27/23 Range/Units 17:12 20:57 06:04 POC Glucose (mg/dL) 202 H 190 H 146 H (70-110) mg/dL 11/27/23 11/27/23 Range/Units 11:13 16:37 POC Glucose (mg/dL) 215 H 226 H (70-110) mg/dL Assessment and Plan Assessment: Acute ischemic stroke, very tiny, involving left temporal cortex region. CTA head/neck is negative. Cephalgia--improved. ESR is normal. Having sensation of impending doom yesterday with adreline crouch: Unsure cause--No further episodes. Probably due to anxiety disorder. Anxiety Elevated lactic acid vein---resolved. History of stroke and notified Dr. Mooney that he had some stroke affecting the eye about 3 to 4 years ago History of atrial fibrillation on Xarelto Diabetes mellitus and recent HbA1c is 6.7 on 07/2023 Hypertension Hyperlipidemia History of colon cancer status post resection and chemotherapy in 2017 Plan: MRI of the cervical spine revealed large central right paracentral disc bulge C3-4 moderate anterior thecal sac impression. This has cord contact and cord deformity. Severe right foraminal stenosis C3-4. Mild disc bulging C5-6 without cord contact or stenosis. I personally reviewed MRI agree with the findings. Orthopedic surgery has seen the patient, recommending nonemergent orthopedic surgical intervention at this time. Patient demonstrating no acute myelopathic signs. They are recommending conservative measures including physical therapy in the outpatient setting. They recommended patient to follow-up with Dr. Ayers as outpatient. Patient states that they have an appointment for them in the morning. Patient was taking Xarelto, his home medication for A-fib. It seems that aspirin 81 mg has been added to the regimen. Patient is on pravastatin 40 mg nightly. Recommend EMG with NCS of left upper extremity as outpatient. Hemoglobin A1c 8.2. Recommend optimize control of diabetes to target A1c <7.0. Continue statins. Psychiatry is consulted Neurologically clear for discharge.
== END 2023-11-27 17:09 | disposition home or self-care (01) | DRG 65 ==
LOC: EC 18:16 → 5NMEDONC 21:16 → OBSVTOIN 21:17 → 4SSUR 11-21 19:05
PROVIDERS: ADMIT Internal Medicine; ATTEND Internal Medicine
DX: I63.9 Cerebral infarction, unspecified (principal); E87.20 Acidosis, unspecified; I48.21 Permanent atrial fibrillation; I50.32 Chronic diastolic (congestive) heart failure; K52.1 Toxic gastroenteritis and colitis; R29.810 Facial weakness; G83.21 Monoplegia of upper limb affecting right dominant side; I11.0 Hypertensive heart disease with heart failure; D69.6 Thrombocytopenia, unspecified; E03.9 Hypothyroidism, unspecified; E11.65 Type 2 diabetes mellitus with hyperglycemia; E66.9 Obesity, unspecified; Z68.34 Body mass index [BMI] 34.0-34.9, adult; Z79.01 Long term (current) use of anticoagulants; I25.10 Atherosclerotic heart disease of native coronary artery without angina pectoris; E11.621 Type 2 diabetes mellitus with foot ulcer; F31.9 Bipolar disorder, unspecified; F41.1 Generalized anxiety disorder; G43.909 Migraine, unspecified, not intractable, without status migrainosus; M50.21 Other cervical disc displacement, high cervical region; L97.519 Non-pressure chronic ulcer of other part of right foot with unspecified severity; E87.8 Other disorders of electrolyte and fluid balance, not elsewhere classified; R79.1 Abnormal coagulation profile; H91.90 Unspecified hearing loss, unspecified ear; I25.2 Old myocardial infarction; I45.10 Unspecified right bundle-branch block; K21.9 Gastro-esophageal reflux disease without esophagitis; G47.30 Sleep apnea, unspecified; T43.595A Adverse effect of other antipsychotics and neuroleptics, initial encounter; M47.812 Spondylosis without myelopathy or radiculopathy, cervical region; M10.9 Gout, unspecified; I49.3 Ventricular premature depolarization; M48.02 Spinal stenosis, cervical region; N40.0 Benign prostatic hyperplasia without lower urinary tract symptoms; Z79.4 Long term (current) use of insulin; Z79.82 Long term (current) use of aspirin; Z79.84 Long term (current) use of oral hypoglycemic drugs; Z79.899 Other long term (current) drug therapy; Z85.038 Personal history of other malignant neoplasm of large intestine; Z86.73 Personal history of transient ischemic attack (TIA), and cerebral infarction without residual deficits; Z87.891 Personal history of nicotine dependence; Z92.21 Personal history of antineoplastic chemotherapy; Z95.5 Presence of coronary angioplasty implant and graft; Z91.81 History of falling; Z90.49 Acquired absence of other specified parts of digestive tract
CPT/HCPCS: 36415; 70450; 70496; 70498; 70553; 71275; 72141; 80053; 80061; 81003; 82140; 82607; 82746; 83036; 83605; 83735; 84100; 84443; 84484; 85025; 85027; 85379; 85610; 85652; 85730; 87045; 87046; 87324; 93005; 93306; 93880; 94660; 94760; 95816; 96361; 96374; 96375; 96376; 99285

== ENCOUNTER 2024-01-21 16:08 | Emergency (ER) | payer OTHER ==
[2024-01-21 16:32] VITALS: RESP 18
[2024-01-21] MEDS: SODIUM CHLORIDE 0.9% 1,000 ML IV STA (17:11)
--- NOTE | 2024-01-21 17:14 | ED ---
Abdominal Pain HPI - General Chief Complaint: Abdominal Pain Stated Complaint: abd pain Time Seen by Provider: 01/21/24 16:12 Source: EMS Mode of arrival: EMS - History of Present Illness Initial Comments: Patient is a 73-year-old gentleman with a past medical history of recent TIA, atrial fibrillation on Xarelto, CAD, colon cancer, diabetes, hyperlipidemia, hypertension presenting today for 5 to 6 days of diarrhea. Patient states that he has been in the hospital for the last 4 days and diarrhea started prior to that. He endorses associated left upper quadrant pain. States that he was admitted to [facility] 4 days ago for TIA. Recently discharged. History is limited as patient is unsure of the timeline of these events. Also states that approximately 5 days ago, after the start of his diarrhea he had a ground-level fall at home where he hit the back of his head, did not lose consciousness and bruised his left ribs and left upper quadrant of his abdomen. No chest pain, fever, difficulty breathing, neck pain, black or bloody stools, nausea or vomiting. He does feel that the episodes of diarrhea are improving. - Related Data Home Medications Medication Instructions Recorded Confirmed Potassium Chloride [Klor-Con 20] 20 meq PO DAILY 01/15/14 11/21/23 Pravastatin Sodium [Pravachol] 40 mg PO HS 01/15/14 11/21/23 allopurinoL [Zyloprim] 100 mg PO HS 07/28/15 11/21/23 Sertraline HCl [Zoloft] 200 mg PO DAILY 11/05/15 11/21/23 Rivaroxaban [Xarelto] 20 mg PO HS 07/27/17 11/21/23 Empagliflozin [Jardiance] 25 mg PO DAILY 06/10/21 11/21/23 Famotidine 20 mg PO DAILY 06/10/21 11/21/23 Insulin Glargine,Hum.rec.anlog 15 unit SQ HS 06/10/21 11/21/23 [Lantus Solostar Pen] Pantoprazole [Protonix] 40 mg PO BID 06/10/21 11/21/23 glipiZIDE [Glucotrol] 20 mg PO AC-BID 08/14/22 11/21/23 Temazepam [Restoril] 15 mg PO HS 07/24/23 11/21/23 hydrOXYzine HCL [Atarax] 10 mg PO QID PRN 08/06/23 11/21/23 LORazepam [Ativan] 2 mg PO BID 08/11/23 11/21/23 amLODIPine [Norvasc] 10 mg PO DAILY 11/21/23 11/21/23 lisinopriL [Zestril] 10 mg PO DAILY 11/21/23 11/21/23 Previous Rx's Medication Instructions Recorded Acetaminophen Tab [Tylenol] 1,000 mg PO Q6HR PRN #30 tablet 07/27/23 Aspirin 81 mg PO DAILY 30 Days #30 tab 11/27/23 Fenofibrate [Lofibra] 160 mg PO DAILY 30 Days #30 tab 11/27/23 QUEtiapine [SEROquel] 25 mg PO BID PRN 30 Days #60 tab 11/27/23 QUEtiapine [SEROquel] 50 mg PO HS 30 Days #30 tab 11/27/23 busPIRone HCl [Buspar] 10 mg PO TID 30 Days #90 tab 11/27/23 Allergies Allergy/AdvReac Type Severity Reaction Status Date / Time clopidogrel bisulfate Allergy Rash/Hives Verified 01/21/24 16:19 [From Plavix] Sulfa (Sulfonamide Allergy Rash/Hives Verified 01/21/24 16:19 Antibiotics) gabapentin AdvReac Aggression, Verified 01/21/24 16:19 anxiety, mood swings metformin AdvReac Diarrhea Verified 01/21/24 16:19 morphine AdvReac Hallucinati Verified 01/21/24 16:19 ons pregabalin [From Lyrica] AdvReac Aggression, Verified 01/21/24 16:19 anxiety, mood swings Review of Systems ROS Statement: Those systems with pertinent positive or pertinent negative responses have been documented in the HPI. ROS Other: All systems not noted in ROS Statement are negative. Past Medical History Past Medical History: Atrial Fibrillation, Coronary Artery Disease (CAD), Cancer, Heart Failure, Diabetes Mellitus, GERD/Reflux, Hyperlipidemia, Hypertension, Myocardial Infarction (SC), Sleep Apnea/CPAP/BIPAP, Thyroid Disorder Additional Past Medical History / Comment(s): gout, skin ca, colon cancer with resection and chemo (2017)., c-pap machine., ulcer on side of right great toe- receives wound tx ., BPH., gall bladder pain. Last Myocardial Infarction Date:: 2006 History of Any Multi-Drug Resistant Organisms: MRSA Date of last positivie culture/infection: 2022 MDRO Source:: right great toe Past Surgical History: Appendectomy, Bowel Resection, Heart Catheterization With Stent, Orthopedic Surgery Additional Past Surgical History / Comment(s): skin ca removed, lt shoulder surgery ,rt knee surgery, deviated septum surgery Past Anesthesia/Blood Transfusion Reactions: No Reported Reaction Date of Last Stent Placement:: 2006 Past Psychological History: Anxiety, Bipolar, Depression Smoking Status: Former smoker Past Alcohol Use History: Occasional Past Drug Use History: None Reported - Past Family History Father Family Medical History: Asthma, Hyperlipidemia Additional Family Medical History / Comment(s): at age 61. was a heavy smo ker,prostate sx a week before he not sure what took him. Mother Family Medical History: Dementia Additional Family Medical History / Comment(s): at age 75 from alzheimers General Exam - General Exam Comments Initial Comments: PE: CONSTITUTIONAL: No apparent distress, well appearing SKIN: Warm, dry, no jaundice, hives or petechiae, yellow-green/brown bruise to left upper quadrant of abdomen just inferior to left ribs EYES: Pupils are equally round, extraocular movements intact without nystagmus, clear conjunctiva, non-icteric sclera HENT: Normocephalic, small palpable hematoma to the left posterior occiput, somewhat dry mucus membranes, oropharynx clear without exudates NECK: , Full range of motion, normal appearance, no midline spinal tenderness PULMONARY: Clear to auscultation without wheezes, rhonchi, or rales, normal excursion, no accessory muscle use and no stridor, mild tenderness palpation of the left inferior ribs CARDIOVASCULAR: Regular rate, rhythm, normal S1 and S2. No appreciated murmurs, rubs or gallops. Strong radial pulses with intact distal perfusion. No lower extremity edema GASTROINTESTINAL: Soft, minimal tenderness to palpation in the left upper quadrant and area of bruising, no palpable hematoma, non-distended, no palpable masses, no rebound or guarding. No hepatosplenomegaly MUSCULOSKELETAL: Extremities have no gross deformity, no edema, redness, or swelling. No calf swelling NEUROLOGIC:_a/o x 3, GCS 15, normal mentation and speech. Moves all extremities x 4 without motor or sensory deficit PSYCHIATRIC:_normal mood and affect, thought process is clear and linear, the patient has some trouble remembering the exact timeline of events of his recent hospitalization and symptoms Course Vital Signs 01/21/24 01/21/24 16:10 21:26 Temperature 97.9 F 97.5 F L Pulse Rate 74 62 Respiratory 18 18 Rate Blood Pressure 163/00 152/83 O2 Sat by Pulse 100 95 Oximetry Medical Decision Making - Medical Decision Making Was pt. sent in by a medical professional or institution (, PA, FOUNDRY TENDER, urgent care, hospital, or intermediate...) When possible be specific @ -No Did you speak to anyone other than the patient for history (EMS, parent, family, police, friend...)? What history was obtained from this source @ -I did ultimately speak with the patient's , Mendy Did you review nursing and triage notes (agree or disagree)? Why? @ -I reviewed and agree with nursing and triage notes Were old charts reviewed (outside hosp., previous admission, EMS record, old EKG, old radiological studies, urgent care reports/EKG's, intermediate records)? Report findings @ I did review her progress note from hospitalization at the beginning of November, progress note from 11/27/2023, during his hospitalization it appears patient was admitted for right facial paresthesia and left hand paresthesias and MRI showed potential restriction diffusion over the left parietal region which could be CVA versus artifact, per this note Dr. Carney felt patient potentially had a stroke Differential Diagnosis (chest pain, altered mental status, abdominal pain women, abdominal pain men, vaginal bleeding, weakness, fever, dyspnea, syncope, headache, dizziness, GI bleed, back pain, seizure, CVA, palpatations, mental health, musculoskeletal)? @ -Differential diagnosis remains broad however top considerations include diverticulitis, infectious diarrhea, gastroenteritis, colitis, C. difficile infection, IBD, this is not meant to be an all-inclusive list EKG interpreted by me (3pts min.). @ -As above X-rays interpreted by me (1pt min.). @ -None done CT interpreted by me (1pt min.). @ -Reviewed CT brain, C-spine chest abdomen and pelvis, I see no evidence of hemorrhage or mass effect on CT brain, no evidence of fracture on CT C-spine, no evidence of rib fracture or pulmonary contusion on CT chest, no evidence of obstruction, perforation or other acute process on CT abdomen, I see no fluid collection or hematoma present U/S interpreted by me (1pt. min.). @ -None done What testing was considered but not performed or refused? (CT, X-rays, U/S, labs)? Why? @ -None What meds were considered but not given or refused? Why? @ -I did consider administering morphine however patient states that he becomes confused with morphine administration Did you discuss the management of the patient with other professionals (michael morse i.e. , PA, FOUNDRY TENDER, lab, RT, psych nurse, geriatric social worker, kennel manager, teacher, community resource officer, leather case finisher)? Give summary @ -No Was smoking cessation discussed for >3mins.? @ -No Was critical care preformed (if so, how long)? @ -No Were there social determinants of health that impacted care today? How? (Homelessness, low income, unemployed, alcoholism, drug addiction, transportation, low edu. Level, literacy, decrease access to med. care, long term, rehab)? @ -No Was there de-escalation of care discussed even if they declined (Discuss DNR or withdrawal of care, Hospice)? @ -No What co-morbidities impacted this encounter? (DM, HTN, Smoking, COPD, CAD, Cancer, CVA, ARF, Chemo, Hep., AIDS, mental health diagnosis, sleep apnea, morbid obesity)? @Prior CVA, CAD Was patient admitted / discharged? Hospital course, mention meds given and route, prescriptions, significant lab abnormalities, going to OR and other pertinent info. @ -Hospital course iiii Discharged-patient is a pleasant 73-year-old gentleman presenting for 5 to 6 days of loose stools, recent hospitalization for TIA however loose stool did begin prior to this, stools are now described as soft and patient does feel that they are becoming less frequent, associated left upper quadrant pain and recent fall approximately 5 days ago where patient hit his left ribs and left side of his head. On my assessment patient is well-appearing and in no acute distress, he is alert and oriented x 4 however does have some trouble remembering the exact timeline of his symptoms and recent hospitalization. He is pleasant and conversant. Exam did show a bruise in the left upper quadrant of the abdomen mild tenderness palpation here and under the left ribs, small hematoma to the left posterior occiput, mucous membranes are somewhat dry. Otherwise no midline spinal tenderness palpation, no other evidence of injury. Currently rates pain as [address] brain and C-spine ordered given patient's recent fall, CT chest on pelvis ordered also due to patient's recent fall, left inferior rib tenderness in the bruising on left upper quadrant, as well as to assess for acute intra-abdominal process. IV fluids basic labs ordered. Patient agreeable with plan of care. Labs and imaging reviewed. Grossly within normal limits. Abnormal values not concerning for acute pathology related to presenting complaint. CT chest abdomen pelvis did remark on scattered pulmonary nodules however these were present on CT performed in November of this year which also commented that these were present in February of last year as well. given reassuring labs, patient's stated gradually improving symptoms, diarrhea that started prior to his recent hospital ization symptoms do not seem consistent with C. difficile infection. On reassessment patient has not had any loose stools since being in the emergency department. I discussed with patient plan for discharge and he was agreeable with plan of care. He wonders if his symptoms are secondary to anxiety stating that he has been dealing with quite a bit of anxiety over the last year. He denies SI. Pt states that he would like to go home. Discussed with patient's plan for discharge over the phone. We discussed signs and symptoms warranting return to the emergency department, patient's is also agreeable with plan for discharge. In my medical judgment there is currently no evidence of an immediate life- threatening or surgical condition. Discharge is therefore indicated at this time. Discharge treatment instructions, follow up instructions, and appropriate emergency department return precautions were discussed with the patient and/or medical decision maker. Patient and/or medical decision maker expressed understanding of and agreed with the treatment plan, follow up instructions, and emergency department return precaution. All patient's and/or medical decision maker's questions were answered. Undiagnosed new problem with uncertain prognosis? @ -No Drug Therapy requiring intensive monitoring for toxicity (Heparin, Nitro, Insulin, Cardizem)? @ -No Were any procedures done? @ -No Diagnosis/symptom? @ -Acute diarrhea Acute, or Chronic, or Acute on Chronic? @ -Acute Uncomplicated (without systemic symptoms) or Complicated (systemic symptoms)? @ -Complicated Side effects of treatment? @ -No Exacerbation, Progression, or Severe Exacerbation? @ -No Poses a threat to life or bodily function? How? (Chest pain, USA, SC, pneumonia, PE, COPD, DKA, ARF, appy, cholecystitis, CVA, Diverticulitis, Homicidal, Suicidal, threat to staff... and all critical care pts) @ -Unlikely - Lab Data Result diagrams: 01/21/24 17:07 01/21/24 17:07 Lab Results 01/21/24 01/21/24 01/21/24 Range/Units 17:07 17:07 17:07 WBC 6.8 (3.8-10.6) k/uL RBC 5.45 (4.30-5.90) m/uL Hgb 14.5 (13.0-17.5) gm/dL Hct 45.7 (39.0-53.0) % MCV 83.9 (80.0-100.0) fL MCH 26.7 (25.0-35.0) pg MCHC 31.8 (31.0-37.0) g/dL RDW 18.5 H (11.5-15.5) % Plt Count 119 L (150-450) k/uL MPV 8.0 Neutrophils % 71 % Lymphocytes % 19 % Monocytes % 5 % Eosinophils % 3 % Basophils % 1 % Neutrophils # 4.8 (1.3-7.7) k/uL Lymphocytes # 1.3 (1.0-4.8) k/uL Monocytes # 0.3 (0-1.0) k/uL Eosinophils # 0.2 (0-0.7) k/uL Basophils # 0.0 (0-0.2) k/uL Hypochromasia Moderate Anisocytosis Slight PT 10.7 (10.0-12.5) sec INR 1.0 (<1.2) APTT 22.6 (22.0-30.0) sec Sodium 137 (137-145) mmol/L Potassium 5.1 (3.5-5.1) mmol/L Chloride 106 (98-107) mmol/L Carbon Dioxide 25 (22-30) mmol/L Anion Gap 6 mmol/L BUN 15 (9-20) mg/dL Creatinine 0.74 (0.66-1.25) mg/dL Est GFR (CKD-EPI)AfAm >90 (>60 ml/min/1.73 sqM) Est GFR (CKD-EPI)NonAf >90 (>60 ml/min/1.73 sqM) Glucose 159 H (74-99) mg/dL Plasma Lactic Acid Iván (0.7-2.0) mmol/L Calcium 9.9 (8.4-10.2) mg/dL Total Bilirubin 0.9 (0.2-1.3) mg/dL AST 30 (17-59) U/L ALT 20 (4-49) U/L Alkaline Phosphatase 96 (38-126) U/L Troponin I (0.000-0.034) ng/mL Total Protein 6.6 (6.3-8.2) g/dL Albumin 4.0 (3.5-5.0) g/dL Amylase 61 (30-110) U/L Lipase 113 (23-300) U/L Urine Color Urine Appearance (Clear) Urine pH (5.0-8.0) Ur Specific [place] (1.001-1.035) Urine Protein (Negative) Urine Glucose (UA) (Negative) Urine Ketones (Negative) Urine Blood (Negative) Urine Nitrite (Negative) Urine Bilirubin (Negative) Urine Urobilinogen (<2.0) mg/dL Ur Leukocyte Esterase (Negative) 01/21/24 01/21/24 01/21/24 Range/Units 17:07 17:07 17:46 WBC (3.8-10.6) k/uL RBC (4.30-5.90) m/uL Hgb (13.0-17.5) gm/dL Hct (39.0-53.0) % MCV (80.0-100.0) fL MCH (25.0-35.0) pg MCHC (31.0-37.0) g/dL RDW (11.5-15.5) % Plt Count (150-450) k/uL MPV Neutrophils % % Lymphocytes % % Monocytes % % Eosinophils % % Basophils % % Neutrophils # (1.3-7.7) k/uL Lymphocytes # (1.0-4.8) k/uL Monocytes # (0-1.0) k/uL Eosinophils # (0-0.7) k/uL Basophils # (0-0.2) k/uL Hypochromasia Anisocytosis PT (10.0-12.5) sec INR (<1.2) APTT (22.0-30.0) sec Sodium (137-145) mmol/L Potassium (3.5-5.1) mmol/L Chloride (98-107) mmol/L Carbon Dioxide (22-30) mmol/L Anion Gap mmol/L BUN (9-20) mg/dL Creatinine (0.66-1.25) mg/dL Est GFR (CKD-EPI)AfAm (>60 ml/min/1.73 sqM) Est GFR (CKD-EPI)NonAf (>60 ml/min/1.73 sqM) Glucose (74-99) mg/dL Plasma Lactic Acid Iván 1.8 (0.7-2.0) mmol/L Calcium (8.4-10.2) mg/dL Total Bilirubin (0.2-1.3) mg/dL AST (17-59) U/L ALT (4-49) U/L Alkaline Phosphatase (38-126) U/L Troponin I <0.012 (0.000-0.034) ng/mL Total Protein (6.3-8.2) g/dL Albumin (3.5-5.0) g/dL Amylase (30-110) U/L Lipase (23-300) U/L Urine Color Colorless Urine Appearance Clear (Clear) Urine pH 7.5 (5.0-8.0) Ur Specific [place] 1.018 (1.001-1.035) Urine Protein Negative (Negative) Urine Glucose (UA) 4+ H (Negative) Urine Ketones Negative (Negative) Urine Blood Negative (Negative) Urine Nitrite Negative (Negative) Urine Bilirubin Negative (Negative) Urine Urobilinogen <2.0 (<2.0) mg/dL Ur Leukocyte Esterase Negative (Negative) When compared to previous EKG there are: previous EKG unavailable Disposition Clinical Impression: Diarrhea, Fall at home Disposition: HOME SELF-CARE Condition: Good Is patient prescribed a controlled substance at d/c from ED?: No Referrals: Juan Shields DO [Primary Care Provider] - 1-2 days
[2024-01-21 17:20] LABS: Anisocytosis Slight; Basophils % (A) 1 %; Eosinophils # (A) 0.2 k/uL (0-0.7); Eosinophils % (A) 3 %; HCT 45.7 % (39.0-53.0); HGB 14.5 gm/dL (13.0-17.5); Hypochromasia Moderate; Lymphocytes # (A) 1.3 k/uL (1.0-4.8); Lymphocytes % (A) 19 %; MCH 26.7 pg (25.0-35.0); MCHC 31.8 g/dL (31.0-37.0); MCV 83.9 fL (80.0-100.0); Monocytes # (A) 0.3 k/uL (0-1.0); Monocytes % (A) 5 %; Neutrophils # (A) 4.8 k/uL (1.3-7.7); Neutrophils % (A) 71 %; Platelet Count 119 k/uL (150-450); RBC 5.45 m/uL (4.30-5.90); RDW 18.5 % (11.5-15.5); WBC 6.8 k/uL (3.8-10.6)
[2024-01-21 17:29] LABS: ALT 20 U/L (4-49); African American GFR (CKD) >90 (>60 ml/min/1.73 sqM); Amylase 61 U/L (30-110); Anion Gap 6 mmol/L; Blood Urea Nitrogen 15 mg/dL (9-20); Calcium 9.9 mg/dL (8.4-10.2); Carbon Dioxide 25 mmol/L (22-30); Chloride 106 mmol/L (98-107); Glucose 159 mg/dL (74-99); Lipase 113 U/L (23-300); Non-African American GFR(CKD) >90 (>60 ml/min/1.73 sqM); Sodium 137 mmol/L (137-145); Total Bilirubin 0.9 mg/dL (0.2-1.3); Total Protein 6.6 g/dL (6.3-8.2)
[2024-01-21 17:32] LABS: Partial Thromboplastin Time 22.6 sec (22.0-30.0); Prothrombin Time 10.7 sec (10.0-12.5)
[2024-01-21 17:46] LABS: AST 30 U/L (17-59); Alkaline Phosphatase 96 U/L (38-126); Potassium 5.1 mmol/L (3.5-5.1)
[2024-01-21 18:06] LABS: Appearance,Urine Clear (Clear); Bilirubin,Urine Negative (Negative); Blood,Urine Negative (Negative); Color,Urine Colorless; Glucose,Urine (UA) 4+ (Negative); Ketones,Urine Negative (Negative); Leukocyte Esterase,Urine Negative (Negative); Nitrite,Urine Negative (Negative); PH, Urine 7.5 (5.0-8.0); Protein,Urine Negative (Negative); Specific Gravity,Urine 1.018 (1.001-1.035); Urobilinogen,Urine <2.0 mg/dL (<2.0)
--- NOTE | 2024-01-21 19:32 | CT ---
EXAMINATION TYPE: CT brain james wo con DATE OF EXAM: 01/21/2024 COMPARISON: 11/20/2023 HISTORY: fall CT DLP: 1614.3 mGycm, Automated exposure control for dose reduction was used. CONTRAST: Patient injected with 0 mL of Isovue 300. CT of the brain is performed utilizing 3 mm thick sections through the posterior fossa and 3 mm thick sections through the remaining calvarium. Study is performed within 24 hours of arrival to the hospital. No abnormal hyperdensity is present to suggest an acute intracranial hemorrhage. No mass lesion is evident. No acute infarcts are evident. Minimal periventricular white matter hypodensity may be present, like ly on the basis of chronic white matter ischemic changes. Ventricles and sulci are appropriate for the patient age. Paranasal sinuses and mastoid air cells within the [id number] are clear. IMPRESSIONS: 1. No acute posttraumatic intracranial process. Follow-up MRI can be performed as clinically indicate d. 2. Minimal chronic appearing periventricular white matter changes may be present. CT cervical spine. COMPARISON: None CT of the cervical spine is performed in the axial plane at 2 mm thick sections. Reconstructed image s in the coronal, and sagittal plane are reviewed on the computer. No acute fractures are evident. Vertebral body alignment is normal. Disc heights are preserved. Vertebral body heights are preserved. No spinal canal stenosis is evident. Some mild foraminal narrowing may be present left C3-4 from uncovertebral joint hypertrophy. IMPRESSION: 1. No acute posttraumatic changes cervical spine
--- NOTE | 2024-01-21 19:40 | CT ---
EXAMINATION TYPE: CT ChestAbdPelvis w con DATE OF EXAM: 01/21/2024 INDICATION: diarrhea COMPARISON: 06/01/2023 CT DLP: 3930 mGycm CONTRAST: Performed without Oral Contrast and with IV Contrast, patient injected with 100ml mL of Isovue 300. TECHNIQUE: Axial images at 5 mm thick sections. Reconstructed images in the coronal plane. Delayed images through the kidneys. FINDINGS: CT CHEST: Portion of the thyroid visualized is normal. Small nodular density measuring 0.6 cm medially in the anterior right lower lung field, series 201 im age 35. There is a 0.9 cm oval density in the lateral right lung. Series 201 image 28. There is a 0. 7 cm nodule peripheral right lung. Series 201 image 26. There is a 0.8 cm posterior left lung, series 201, image 19. No pneumothorax evident. No enlarged mediastinal or hilar adenopathy is evident. The ascending aorta diameter at the level of the main pulmonary artery is 3.5 cm. The main pulmonary artery diameter at the bifurcation is 3.[address] ABDOMEN: Liver: Normal Spleen: Punctate granulomas are within the spleen. Pancreas: Normal Adrenal glands: The adrenal glands are normal. Gallbladder: Normal Kidneys: No masses are evident. No hydronephrosis is present. There is a 3.3 cm cyst on the lateral left kidney Delayed images were obtained through the kidneys, which remain unremarkable. Aorta: Normal Inferior vena cava: Normal. CT PELVIS: Loops of bowel within the abdomen and pelvis are normal. The anastomosis of the small bowel to the as cending colon appears patent without obstruction. This study without oral contrast limiting bowel evaluation. Appendix: Not identified. Urinary bladder: Normal. Genitourinary structures: The prostate is prominent Osseous structures: No suspicious lytic or sclerotic lesions. No acute fractures are evident. Vertebr al body heights appear preserved. No displaced rib fractures identified IMPRESSION: 1. No acute posttraumatic changes. 2. Multiple lung nodules. Consider additional workup with PET CT.
[2024-01-21 21:27] VITALS: BP 152/83; PULSE 62; TEMP 97.5
== END 2024-01-21 21:28 | disposition home or self-care (01) ==
LOC: EC 16:08
DX: S31.101A Unspecified open wound of abdominal wall, left upper quadrant without penetration into peritoneal cavity, initial encounter (principal); W18.30XA Fall on same level, unspecified, initial encounter; Z87.891 Personal history of nicotine dependence; Z88.1 Allergy status to other antibiotic agents; Z88.2 Allergy status to sulfonamides; Z88.5 Allergy status to narcotic agent
CPT/HCPCS: 36415; 80053; 82150; 83605; 83690; 84484; 85025; 85610; 85730; 81003; 72125; 70450; 71260; 74177; 99284; Q9967

== ENCOUNTER 2024-02-02 18:46 | Emergency (ER) | payer OTHER ==
[2024-02-02 19:02] VITALS: TEMP 97.4
--- NOTE | 2024-02-02 19:12 | ED ---
Abdominal Pain HPI - General Chief Complaint: Abdominal Pain Stated Complaint: Abd pain,Nausea Time Seen by Provider: 02/02/24 19:05 Source: patient, RN notes reviewed, old records reviewed Mode of arrival: ambulatory Limitations: no limitations - History of Present Illness Initial Comments: This is a 73-year-old male to the ER today. He presents today for evaluation abdominal pain with history of gallbladder surgery recent history of gallbladder surgery nausea vomiting abdominal pain bloating no diarrhea. Patient symptoms are persistent. is at bedside states patient may be a little bit confused at times but he is feeling well here in the ER MD Complaint: abdominal pain Location: diffuse, periumbilical, epigastric, suprapubic Radiation: epigastric, suprapubic Severity: mild Severity scale (1-10): 2 Quality: cramping, stabbing Consistency: constant - Related Data Home Medications Medication Instructions Recorded Confirmed Potassium Chloride [Klor-Con 20] 20 meq PO DAILY 01/15/14 02/11/24 Pravastatin Sodium [Pravachol] 40 mg PO HS 01/15/14 02/11/24 allopurinoL [Zyloprim] 100 mg PO HS 07/28/15 02/11/24 Sertraline HCl [Zoloft] 200 mg PO DAILY 11/05/15 02/11/24 Rivaroxaban [Xarelto] 20 mg PO HS 07/27/17 02/11/24 Empagliflozin [Jardiance] 25 mg PO DAILY 06/10/21 02/11/24 Pantoprazole [Protonix] 40 mg PO BID 06/10/21 02/11/24 glipiZIDE [Glucotrol] 20 mg PO AC-BID 08/14/22 02/11/24 LORazepam [Ativan] 2 mg PO BID 08/11/23 02/11/24 Aspirin EC [Ecotrin Low Dose] 81 mg PO DAILY 02/11/24 02/11/24 QUEtiapine FUMARATE [SEROquel] 50 mg PO HS 02/11/24 02/11/24 Temazepam [Restoril] 7.5 mg PO HS 02/11/24 02/11/24 busPIRone HCL 15 mg PO BID 02/11/24 02/11/24 Previous Rx's Medication Instructions Recorded Fenofibrate [Lofibra] 160 mg PO DAILY 30 Days #30 tab 11/27/23 QUEtiapine [SEROquel] 25 mg PO BID PRN 30 Days #60 tab 11/27/23 Amoxic-Pot Clav 875-125Mg 1 tab PO Q12HR 14 Days #28 tab 02/14/24 [Augmentin 875-125] Amoxic-Pot Clav 875-125Mg 1 tab PO Q12HR 14 Days #28 tab 02/14/24 [Augmentin 875-125] amLODIPine [Norvasc] 10 mg PO DAILY #30 tab 02/14/24 lisinopriL [Zestril] 10 mg PO DAILY #30 tab 02/14/24 Allergies Allergy/AdvReac Type Severity Reaction Status Date / Time clopidogrel bisulfate Allergy Rash/Hives Verified 02/11/24 11:00 [From Plavix] Sulfa (Sulfonamide Allergy Rash/Hives Verified 02/11/24 11:00 Antibiotics) gabapentin AdvReac Aggression, Verified 02/11/24 11:00 anxiety, mood swings metformin AdvReac Diarrhea Verified 02/11/24 11:00 morphine AdvReac Hallucinati Verified 02/11/24 11:00 ons pregabalin [From Lyrica] AdvReac Aggression, Verified 02/11/24 11:00 anxiety, mood swings Review of Systems ROS Statement: Those systems with pertinent positive or pertinent negative responses have been documented in the HPI. ROS Other: All systems not noted in ROS Statement are negative. Past Medical History Past Medical History: Atrial Fibrillation, Coronary Artery Disease (CAD), Cancer, Heart Failure, CVA/TIA, Diabetes Mellitus, GERD/Reflux, Hyperlipidemia, Hypertension, Myocardial Infarction (SC), Sleep Apnea/CPAP/BIPAP, Thyroid Disorder Additional Past Medical History / Comment(s): gout, skin ca, colon cancer with resection and chemo (2017)., c-pap machine., ulcer on side of right great toe- receives wound tx ., BPH., gall bladder pain. Last Myocardial Infarction Date:: 2006 History of Any Multi-Drug Resistant Organisms: MRSA Date of last positivie culture/infection: 2022 MDRO Source:: right great toe Past Surgical History: Appendectomy, Bowel Resection, Heart Catheterization With Stent, Orthopedic Surgery Additional Past Surgical History / Comment(s): skin ca removed, lt shoulder surgery ,rt knee surgery, deviated septum surgery Past Anesthesia/Blood Transfusion Reactions: No Reported Reaction Date of Last Stent Placement:: 2006 Past Psychological History: Anxiety, Bipolar, Depression Smoking Status: Former smoker Past Alcohol Use History: Occasional Past Drug Use History: None Reported - Past Family History Father Family Medical History: Asthma, Hyperlipidemia Additional Family Medical History / Comment(s): at age 61. was a heavy smoker,prostate sx a week before he not sure what took him. Mother Family Medical History: Dementia Additional Family Medical History / Comment(s): at age 75 from alzheimers General Exam Limitations: no limitations General appearance: alert, in no apparent distress, anxious Head exam: Present: atraumatic, normocephalic, normal inspection Eye exam: Present: normal appearance, PERRL, EOMI. Absent: scleral icterus, conjunctival injection, periorbital swelling ENT exam: Present: normal exam, mucous membranes moist Neck exam: Present: normal inspection. Absent: tenderness, meningismus, lymphadenopathy Respiratory exam: Present: normal lung sounds bilaterally. Absent: respiratory distress, wheezes, rales, rhonchi, stridor Cardiovascular Exam: Present: regular rate, normal rhythm, normal heart sounds. Absent: systolic murmur, diastolic murmur, rubs, gallop, clicks GI/Abdominal exam: Present: soft, normal bowel sounds. Absent: distended, ten derness, guarding, rebound, rigid Extremities exam: Present: normal inspection, full ROM, normal capillary refill. Absent: tenderness, pedal edema, joint swelling, calf tenderness Back exam: Present: normal inspection Neurological exam: Present: alert, oriented X3, CN II-XII intact Psychiatric exam: Present: normal affect, normal mood Skin exam: Present: warm, dry, intact, normal color. Absent: rash Course Vital Signs 02/02/24 02/02/24 18:59 19:01 Temperature 97.4 F L Pulse Rate 75 81 Respiratory 20 18 Rate Blood Pressure 172/109 172/95 O2 Sat by Pulse 99 94 L Oximetry - Reevaluation(s) Reevaluation #1: 02/02/24 19:47 Medical records reviewed Reevaluation #2: Patient symptoms are improved here in the ER Reevaluation #3: Patient informed of results and questions answered Reevaluation #4: Was pt. sent in by a medical professional or institution (, PA, ACID TENDER, urgent care, hospital, or [facility]...) When possible be specific @ -no Did you speak to anyone other than the patient for history (EMS, parent, family, police, friend...)? What history was obtained from this source @ -no Did you review nursing and triage notes (agree or disagree)? Why? @ -agree Are old charts reviewed (outside hosp., previous admission, EMS record, old EKG, old radiological studies, urgent care reports/EKG's, [facility] records)? Report findings @ -yes Differential Diagnosis (chest pain, altered mental status, abdominal pain women, abdominal pain men, vaginal bleeding, weakness, fever, dyspnea, syncope, headache, dizziness, GI bleed, back pain, seizure, CVA, palpatations, mental health, musculoskeletal)? @ -prior EKG interpreted by me (3pts min.). @ -no X-rays interpreted by me (1pt min.). @ -no CT interpreted by me (1pt min.). @ -yes negative for acute disease U/S interpreted by me (1pt. min.). @ -no What testing was considered but not performed or refused? (CT, X-rays, U/S, labs)? Why? @ -none What meds were considered but not given or refused? Why? @ -none Did you discuss the management of the patient with other professionals (professionals i.e. , PA, ACID TENDER, lab, RT, psych nurse, social services, sergeant of officers, teacher, public safety officer, welfare case worker)? Give summary @ -no Was smoking cessation discussed for >3mins.? @ -no Was critical care preformed (if so, how long)? @ -no Were there social determinants of health that impacted care today? How? (Homelessness, low income, unemployed, alcoholism, drug addiction, transportation, low edu. Level, literacy, decrease access to med. care, [facility], rehab)? @ -none Was there de-escalation of care discussed even if they declined (Discuss DNR or withdrawal of care, Hospice)? DNR status @ -no What co-morbidities impacted this encounter? (DM, HTN, Smoking, COPD, CAD, Cancer, CVA, ARF, Chemo, Hep., AIDS, mental health diagnosis, sleep apnea, morbid obesity)? @ -none Was patient admitted / discharged? Hospital course, mention meds given and route, prescriptions, significant lab abnormalities, going to OR and other pertinent info. @ -This is a 73-year-old male to ER for evaluation abdominal pain. Negative CT scan here in the ER lab testing normal patient feels improved and can be discharged home discharge Undiagnosed new problem with uncertain prognosis? @ -no Drug Therapy requiring intensive monitoring for toxicity (Heparin, Nitro, Insulin, Cardizem)? @ -no Were any procedures done? @ -no Diagnosis/symptom? @ -Abdominal pain Acute, or Chronic, or Acute on Chronic? @ -Acute Uncomplicated (without systemic symptoms) or Complicated (systemic symptoms)? @ -Complicated Side effects of treatment? @ -no Exacerbation, Progression, or Severe Exacerbation? @ -exacerbation Poses a threat to life or bodily function? How? (Chest pain, USA, SC, pneumonia, PE, COPD, DKA, ARF, appy, cholecystitis, CVA, Diverticulitis, Homicidal, Suicidal, threat to staff... and all critical care pts) @ -yes Reevaluation #5: Differential Abdominal Pain Men: Appendicitis, cholecystitis, diverticulosis, ischemic bowel, pancreatitis, hepatitis, UTI, gastroenteritis, AAA, incarcerated hernia, bowel obstruction, constipation, inflammatory bowel, hepatitis, peptic ulcer disease, splenic i nfarction, perforated viscus, testicular torsion, this is not meant to be an all-inclusive list Medical Decision Making - Lab Data Result diagrams: 02/02/24 20:00 02/02/24 20:00 Lab Results 02/02/24 02/02/24 02/02/24 Range/Units 20:00 20:00 20:00 WBC 6.6 (3.8-10.6) k/uL RBC 5.90 (4.30-5.90) m/uL Hgb 15.5 (13.0-17.5) gm/dL Hct 49.2 (39.0-53.0) % MCV 83.4 (80.0-100.0) fL MCH 26.4 (25.0-35.0) pg MCHC 31.6 (31.0-37.0) g/dL RDW 18.4 H (11.5-15.5) % Plt Count 148 L (150-450) k/uL MPV 7.6 Neutrophils % 67 % Lymphocytes % 23 % Monocytes % 6 % Eosinophils % 2 % Basophils % 1 % Neutrophils # 4.5 (1.3-7.7) k/uL Lymphocytes # 1.5 (1.0-4.8) k/uL Monocytes # 0.4 (0-1.0) k/uL Eosinophils # 0.1 (0-0.7) k/uL Basophils # 0.1 (0-0.2) k/uL Hypochromasia Moderate Anisocytosis Slight Microcytosis Slight PT 10.7 (10.0-12.5) sec INR 1.0 (<1.2) APTT 25.9 (22.0-30.0) sec Sodium 142 (137-145) mmol/L Potassium 4.4 (3.5-5.1) mmol/L Chloride 106 (98-107) mmol/L Carbon Dioxide 24 (22-30) mmol/L Anion Gap 12 mmol/L BUN 13 (9-20) mg/dL Creatinine 0.80 (0.66-1.25) mg/dL Est GFR (CKD-EPI)AfAm >90 (>60 ml/min/1.73 sqM) Est GFR (CKD-EPI)NonAf >90 (>60 ml/min/1.73 sqM) Glucose 134 H (74-99) mg/dL Plasma Lactic Acid Iván (0.7-2.0) mmol/L Calcium 10.2 (8.4-10.2) mg/dL Total Bilirubin 0.9 (0.2-1.3) mg/dL AST 43 (17-59) U/L ALT 31 (4-49) U/L Alkaline Phosphatase 166 H (38-126) U/L Total Protein 7.8 (6.3-8.2) g/dL Albumin 4.7 (3.5-5.0) g/dL Amylase 72 (30-110) U/L Lipase 104 (23-300) U/L 02/02/24 Range/Units 20:00 WBC (3.8-10.6) k/uL RBC (4.30-5.90) m/uL Hgb (13.0-17.5) gm/dL Hct (39.0-53.0) % MCV (80.0-100.0) fL MCH (25.0-35.0) pg MCHC (31.0-37.0) g/dL RDW (11.5-15.5) % Plt Count (150-450) k/uL MPV Neutrophils % % Lymphocytes % % Monocytes % % Eosinophils % % Basophils % % Neutrophils # (1.3-7.7) k/uL Lymphocytes # (1.0-4.8) k/uL Monocytes # (0-1.0) k/uL Eosinophils # (0-0.7) k/uL Basophils # (0-0.2) k/uL Hypochromasia Anisocytosis Microcytosis PT (10.0-12.5) sec INR (<1.2) APTT (22.0-30.0) sec Sodium (137-145) mmol/L Potassium (3.5-5.1) mmol/L Chloride (98-107) mmol/L Carbon Dioxide (22-30) mmol/L Anion Gap mmol/L BUN (9-20) mg/dL Creatinine (0.66-1.25) mg/dL Est GFR (CKD-EPI)AfAm (>60 ml/min/1.73 sqM) Est GFR (CKD-EPI)NonAf (>60 ml/min/1.73 sqM) Glucose (74-99) mg/dL Plasma Lactic Acid Iván 1.5 (0.7-2.0) mmol/L Calcium (8.4-10.2) mg/dL Total Bilirubin (0.2-1.3) mg/dL AST (17-59) U/L ALT (4-49) U/L Alkaline Phosphatase (38-126) U/L Total Protein (6.3-8.2) g/dL Albumin (3.5-5.0) g/dL Amylase (30-110) U/L Lipase (23-300) U/L - Radiology Data Radiology results: report reviewed (CT abdomen pelvis is negative for acute disease), image reviewed Disposition Clinical Impression: Abdominal pain Disposition: HOME SELF-CARE Condition: Good Instructions (If sedation given, give patient instructions): Abdominal Pain (ED) Is patient prescribed a controlled substance at d/c from ED?: No Referrals: Juan Shields DO [Primary Care Provider] - 1-2 days Time of Disposition: 20:30
[2024-02-02] MEDS: HYDROmorphone 0.5 MG/0.5 ML SYRINGE IVP STA (19:59)
[2024-02-02] MEDS: ONDANSETRON 4 MG/2 ML VIAL IVP STA (20:00)
[2024-02-02] MEDS: PANTOPRAZOLE 40 MG/10 ML VIAL IVP STA (20:00)
[2024-02-02] MEDS: SODIUM CHLORIDE 0.9% 1,000 ML IV STA (20:02)
[2024-02-02 20:25] LABS: Anisocytosis Slight; Basophils # (A) 0.1 k/uL (0-0.2); Basophils % (A) 1 %; Eosinophils # (A) 0.1 k/uL (0-0.7); Eosinophils % (A) 2 %; HCT 49.2 % (39.0-53.0); HGB 15.5 gm/dL (13.0-17.5); Hypochromasia Moderate; Lymphocytes # (A) 1.5 k/uL (1.0-4.8); Lymphocytes % (A) 23 %; MCH 26.4 pg (25.0-35.0); MCHC 31.6 g/dL (31.0-37.0); MCV 83.4 fL (80.0-100.0); Mean Platelet Volume 7.6; Microcytosis Slight; Monocytes # (A) 0.4 k/uL (0-1.0); Monocytes % (A) 6 %; Neutrophils # (A) 4.5 k/uL (1.3-7.7); Neutrophils % (A) 67 %; Platelet Count 148 k/uL (150-450); RDW 18.4 % (11.5-15.5); WBC 6.6 k/uL (3.8-10.6)
--- NOTE | 2024-02-02 20:36 | CT ---
EXAMINATION TYPE: CT abdomen pelvis wo con DATE OF EXAM: 02/02/2024 COMPARISON: 01/21/2024 HISTORY: 73-year-old male distention C/O abd pain stated feels distended. +bowel sounds +N/V. CT DLP: 1251.4 mGycm. Automated exposure control for dose reduction was used. TECHNIQUE: Contiguous axial scanning of the abdomen and pelvis without IV contrast. Coronal and sagit ridge reconstructions performed. FINDINGS: Heart upper limit of normal in size without pericardial effusion. RCA coronary artery calcifications. Minimal emphysematous change of the lower lungs. A number of 4 mm and smaller pulmonary nodules in t he lower lungs appears unchanged back to 02/21/2023. Calcified granulomas in the lower paraesophageal region. Possible subtle early contour nodularity of the liver. Splenomegaly at 15.4 cm with a small calcified granulomas. Cholecystectomy clips. Right adrenal gland and pancreas show no gross abnormality by noncontrast CT. Tiny 9 mm nodularity left adrenal gland is unchanged. Low-density appearance suggests lipid rich adre nal adenoma. Bilateral renal cortical cysts measuring up to 4.2 cm. No dilated small bowel or free air. There is trace perihepatic ascites fluid. No mesenteric or retroperitoneal lymphadenopathy. Previous partial right hemicolectomy with anastomosis at the upper ascending colon. Scattered promine nt fluid-filled small bowel loops throughout the abdomen. No significant stool burden. Redundant sigm oid colon with left-sided colonic diverticulosis and no pericolonic inflammatory change seen. However , there is mild circumferential wall thickening distal sigmoid colon and rectum which may be due to n ondistention. Bladder partially distended. Prostate gland is enlarged at 6.1 cm wide. Small pelvic phleboliths. No abnormal fluid collection in the pelvis or pelvic lymphadenopathy. Bones: Digital thoracic spine. Facet arthropathy lower lumbar spine. IMPRESSION : 1. Possible subtle contour nodularity of the liver. Correlate to exclude possible underlying cirrhos is. 2. There is mild perihepatic ascites and splenomegaly which are nonspecific but may reflect portal v enous hypertension. 3. Mild circumferential wall thickening distal sigmoid colon and rectum may be due to nondistention or nonspecific mild distal colitis. 4. Sigmoid diverticulosis without acute diverticulitis. 5. Prostatomegaly at 6.1 cm wide. Correlate with patient symptoms and PSA values. [facility], , 02/02/2024 8:34 PM
[2024-02-02 20:37] LABS: ALT 31 U/L (4-49); AST 43 U/L (17-59); African American GFR (CKD) >90 (>60 ml/min/1.73 sqM); Albumin 4.7 g/dL (3.5-5.0); Alkaline Phosphatase 166 U/L (38-126); Amylase 72 U/L (30-110); Anion Gap 12 mmol/L; Blood Urea Nitrogen 13 mg/dL (9-20); Calcium 10.2 mg/dL (8.4-10.2); Carbon Dioxide 24 mmol/L (22-30); Chloride 106 mmol/L (98-107); Glucose 134 mg/dL (74-99); Lipase 104 U/L (23-300); Non-African American GFR(CKD) >90 (>60 ml/min/1.73 sqM); Potassium 4.4 mmol/L (3.5-5.1); Sodium 142 mmol/L (137-145); Total Bilirubin 0.9 mg/dL (0.2-1.3); Total Protein 7.8 g/dL (6.3-8.2)
[2024-02-02 20:42] LABS: Partial Thromboplastin Time 25.9 sec (22.0-30.0); Prothrombin Time 10.7 sec (10.0-12.5)
[2024-02-02] MEDS: LORazepam 2 MG/ML INJ IV STA (21:29)
[2024-02-02] MEDS: ACET/COD 300 MG/30 MG STARTER PACK 6 TAB BTL PO STA (21:30)
[2024-02-02] MEDS: ONDANSETRON 4 MG ODT STARTER PACK 2 TAB BTL PO STA (21:30)
[2024-02-02 21:46] VITALS: BP 172/95; PULSE 81; RESP 18
== END 2024-02-02 21:57 | disposition home or self-care (01) ==
LOC: EC 18:46
DX: K57.30 Diverticulosis of large intestine without perforation or abscess without bleeding (principal)
CPT/HCPCS: 36415; 74176; 80053; 82150; 83605; 83690; 85025; 85610; 85730; 96361; 96374; 96375; 99284

== ENCOUNTER 2024-02-11 01:51 | Inpatient (IN) | payer OTHER, MEDICARE ==
[2024-02-11] MEDS: SODIUM CHLORIDE 0.9% 500 ML 500 ML IV STA (03:17)
[2024-02-11 03:43] LABS: Anisocytosis Slight; Basophils % (A) 0 %; Eosinophils # (A) 0.1 k/uL (0-0.7); Eosinophils % (A) 1 %; HCT 46.5 % (39.0-53.0); HGB 14.9 gm/dL (13.0-17.5); Hypochromasia Slight; Lymphocytes # (A) 0.7 k/uL (1.0-4.8); Lymphocytes % (A) 6 %; MCH 26.6 pg (25.0-35.0); MCHC 32.1 g/dL (31.0-37.0); MCV 82.7 fL (80.0-100.0); Mean Platelet Volume 8.6; Microcytosis Slight; Monocytes # (A) 0.7 k/uL (0-1.0); Monocytes % (A) 6 %; Neutrophils # (A) 9.3 k/uL (1.3-7.7); Neutrophils % (A) 86 %; Platelet Count 126 k/uL (150-450); Poikilocytosis Slight; RBC 5.62 m/uL (4.30-5.90); RDW 18.5 % (11.5-15.5); WBC 10.8 k/uL (3.8-10.6)
[2024-02-11 04:00] LABS: ALT 21 U/L (4-49); AST 26 U/L (17-59); African American GFR (CKD) 79 (>60 ml/min/1.73 sqM); Albumin 4.4 g/dL (3.5-5.0); Alkaline Phosphatase 130 U/L (38-126); Amylase 57 U/L (30-110); Anion Gap 7 mmol/L; Blood Urea Nitrogen 18 mg/dL (9-20); Calcium 10.2 mg/dL (8.4-10.2); Carbon Dioxide 22 mmol/L (22-30); Chloride 107 mmol/L (98-107); Glucose 163 mg/dL (74-99); Lipase 90 U/L (23-300); Non-African American GFR(CKD) 69 (>60 ml/min/1.73 sqM); Potassium 4.7 mmol/L (3.5-5.1); Sodium 136 mmol/L (137-145)
--- NOTE | 2024-02-11 04:00 | CT ---
EXAM: CT Abdomen and Pelvis Without Intravenous Contrast CLINICAL HISTORY: ITS.REASON CT Reason: abdominal pain TECHNIQUE: Axial computed tomography images of the abdomen and pelvis without intravenous contrast. CTDI is 20.3 mGy and DLP is 1232 mGy-cm. This CT exam was performed using one or more of the following dose reduction techniques: automated exposure control, adjustment of the mA and/or kV according to patient size, and/or use of iterative reconstruction technique. COMPARISON: No relevant prior studies available. FINDINGS: ABDOMEN: Liver: Enlarged nodular liver. Gallbladder and bile ducts: Unremarkable. Pancreas: No ductal dilation. Spleen: Calcifications. Adrenals: Unremarkable. Kidneys and ureters: No obstructing stones. No hydronephrosis. Left renal cyst Stomach and bowel: No bowel obstruction. No bowel wall thickening. Colonic diverticulosis. PELVIS: Appendix: No evidence of appendicitis. Bladder: No stones. Reproductive: Enlarged prostate. ABDOMEN and PELVIS: Intraperitoneal space: Unremarkable. Bones/joints: No acute fractures. Soft tissues: Unremarkable. Vasculature: No abdominal aortic aneurysm. Lymph nodes: No enlarged lymph nodes. IMPRESSION: 1. Enlarged cirrhotic liver. 2. Colonic diverticulosis. 3. Enlarged prostate.
[2024-02-11 04:11] LABS: INR 1.2 (<1.2); Prothrombin Time 12.6 sec (10.0-12.5)
--- NOTE | 2024-02-11 04:14 | XR ---
EXAM: XR Right Foot Complete, 3 or More Views CLINICAL HISTORY: ITS.REASON XR Reason: foot infection right great toe TECHNIQUE: Frontal, lateral and oblique views of the right foot. COMPARISON: No relevant prior studies available. FINDINGS: Bones/joints: No acute fracture. No dislocation. Mild osteoarthrosis interphalangeal joint of the first digit Soft tissues: Unremarkable. No radiopaque foreign body. IMPRESSION: No acute osseous abnormalities.
--- NOTE | 2024-02-11 04:39 | ED ---
General Adult HPI - General Chief complaint: Abdominal Pain Stated complaint: Abd Pain Time Seen by Provider: 02/11/24 02:15 Source: EMS Mode of arrival: EMS - History of Present Illness Initial comments: History is limited by patient's history of dementia. Patient is a 73-year-old gentleman with history of prior CVA presenting today for left-sided abdominal pain and diarrhea. Of note patient was seen previously for this a few weeks ago with an essentially negative workup. Patient does have difficulty providing the exact timeline of his diarrhea. Stating he has had 12-14 episodes of loose stool but is unsure over what period. No black or bloody stools. States that the left-sided abdominal pain is actually improving from the last few weeks. States feeling someone is punching him in the left side. No nausea vomiting or fevers. Of note on my assessment patient has a foot wound with redness spreading up his ankle. I asked him about this and he states that he is being seen and has been treated with antibiotics for this though unsure of the timeline over which that is occurred. He states that his doctor told him the infection was improving. - Related Data Home Medications Medication Instructions Recorded Confirmed Potassium Chloride [Klor-Con 20] 20 meq PO DAILY 01/15/14 02/11/24 Pravastatin Sodium [Pravachol] 40 mg PO HS 01/15/14 02/11/24 allopurinoL [Zyloprim] 100 mg PO HS 07/28/15 02/11/24 Sertraline HCl [Zoloft] 200 mg PO DAILY 11/05/15 02/11/24 Rivaroxaban [Xarelto] 20 mg PO HS 07/27/17 02/11/24 Empagliflozin [Jardiance] 25 mg PO DAILY 06/10/21 02/11/24 Pantoprazole [Protonix] 40 mg PO BID 06/10/21 02/11/24 glipiZIDE [Glucotrol] 20 mg PO AC-BID 08/14/22 02/11/24 LORazepam [Ativan] 2 mg PO BID 08/11/23 02/11/24 Aspirin EC [Ecotrin Low Dose] 81 mg PO DAILY 02/11/24 02/11/24 QUEtiapine FUMARATE [SEROquel] 50 mg PO HS 02/11/24 02/11/24 Temazepam [Restoril] 7.5 mg PO HS 02/11/24 02/11/24 busPIRone HCL 15 mg PO BID 02/11/24 02/11/24 Previous Rx's Medication Instructions Recorded Fenofibrate [Lofibra] 160 mg PO DAILY 30 Days #30 tab 11/27/23 QUEtiapine [SEROquel] 25 mg PO BID PRN 30 Days #60 tab 11/27/23 Amoxic-Pot Clav 875-125Mg 1 tab PO Q12HR 14 Days #28 tab 02/14/24 [Augmentin 875-125] Amoxic-Pot Clav 875-125Mg 1 tab PO Q12HR 14 Days #28 tab 02/14/24 [Augmentin 875-125] amLODIPine [Norvasc] 10 mg PO DAILY #30 tab 02/14/24 lisinopriL [Zestril] 10 mg PO DAILY #30 tab 02/14/24 Allergies Allergy/AdvReac Type Severity Reaction Status Date / Time clopidogrel bisulfate Allergy Rash/Hives Verified 02/11/24 11:00 [From Plavix] Sulfa (Sulfonamide Allergy Rash/Hives Verified 02/11/24 11:00 Antibiotics) gabapentin AdvReac Aggression, Verified 02/11/24 11:00 anxiety, mood swings metformin AdvReac Diarrhea Verified 02/11/24 11:00 morphine AdvReac Hallucinati Verified 02/11/24 11:00 ons pregabalin [From Lyrica] AdvReac Aggression, Verified 02/11/24 11:00 anxiety, mood swings Review of Systems ROS Statement: Those systems with pertinent positive or pertinent negative responses have been documented in the HPI. ROS Other: All systems not noted in ROS Statement are negative. Past Medical History Past Medical History: Atrial Fibrillation, Coronary Artery Disease (CAD), Cancer, Heart Failure, CVA/TIA, Diabetes Mellitus, GERD/Reflux, Hyperlipidemia, Hypertension, Myocardial Infarction ([place]), Sleep Apnea/CPAP/BIPAP, Thyroid Disorder Additional Past Medical History / Comment(s): gout, skin ca, colon cancer with resection and chemo (2017)., c-pap machine., ulcer on side of right great toe- receives wound tx ., BPH., gall bladder pain. Last Myocardial Infarction Date:: 2006 History of Any Multi-Drug Resistant Organisms: MRSA Date of last positivie culture/infection: 2023 MDRO Source:: right great toe Past Surgical History: Appendectomy, Bowel Resection, Heart Catheterization With Stent, Orthopedic Surgery Additional Past Surgical History / Comment(s): skin ca removed, lt shoulder surgery ,rt knee surgery, deviated septum surgery Past Anesthesia/Blood Transfusion Reactions: No Reported Reaction Date of Last Stent Placement:: 2006 Past Psychological History: Anxiety, Bipolar, Depression Smoking Status: Former smoker Past Alcohol Use History: Occasional Past Drug Use History: None Reported - Past Family History Father Family Medical History: Asthma, Hyperlipidemia Additional Family Medical History / Comment(s): at age 61. was a heavy smoker,prostate sx a week before he not sure what took him. Mother Family Medical History: Dementia Additional Family Medical History / Comment(s): at age 75 from alzheimers General Exam - General Exam Comments Initial Comments: PE: CONSTITUTIONAL: No apparent distress, well appearing SKIN: Warm, dry, no jaundice, erythema of the right foot spreading up right ankle with chronic appearing wound/ulcer on right great toe, strong smelling with scant discharge EYES: Pupils are equally round, extraocular movements intact without nystagmus, clear conjunctiva, non-icteric sclera HENT: Normocephalic, atraumatic, dry mucus membranes, oropharynx clear without exudates NECK: , Full range of motion, normal appearance PULMONARY: Clear to auscultation without wheezes, rhonchi, or rales, normal excursion, no accessory muscle use and no stridor CARDIOVASCULAR: Regular rate, rhythm, normal S1 and S2. No appreciated murmurs, rubs or gallops. Strong radial pulses with intact distal perfusion. No lower extremity edema GASTROINTESTINAL: Soft, active bowel sounds throughout, TTP LLQ, non-distended, no palpable masses, no rebound or guarding. No hepatosplenomegaly MUSCULOSKELETAL: Extremities have no gross deformity, no edema, or swelling. Erythema and wound on right foot as noted above NEUROLOGIC:_a/o x 3, GCS 15, normal mentation and speech. Moves all extremities x 4 without motor or sensory deficit PSYCHIATRIC:_normal mood and affect, thought process is clear and linear, though patient does have some trouble recalling exact timeline/dates of recent events, symptoms, hospitalizations, etc Course Vital Signs 02/11/24 02/11/24 02/11/24 02:02 03:09 05:35 Temperature 98.1 F Pulse Rate 74 84 81 Pulse Rate [ Pulse Oximetery ] Respiratory 18 18 18 Rate Blood Pressure 151/79 163/98 137/86 Blood Pressure [Left Arm] O2 Sat by Pulse 96 85 L 95 Oximetry 02/11/24 02/11/24 02/11/24 06:19 07:42 08:00 Temperature 98.5 F 98.7 F 97.3 F L Pulse Rate 75 75 Pulse Rate [ 95 Pulse Oximetery ] Respiratory 21 18 17 Rate Blood Pressure 173/88 128/85 Blood Pressure 149/89 [Left Arm] O2 Sat by Pulse 95 97 96 Oximetry Medical Decision Making - Medical Decision Making Was pt. sent in by a medical professional or institution (, PA, RAG CUTTING MACHINE OPERATOR, urgent care, hospital, or assisted...) When possible be specific @ -No Did you speak to anyone other than the patient for history (EMS, parent, family, police, friend...)? What history was obtained from this source @ -No Did you review nursing and triage notes (agree or disagree)? Why? @ -I reviewed and agree with nursing and triage notes Were old charts reviewed (outside hosp., previous admission, EMS record, old EKG, old radiological studies, urgent care reports/EKG's, assisted records)? Report findings @ -Old charts were reviewed, patient was previously seen in the emergency department, On 01/21/2024, CT chest abdomen pelvis done on that time showed nodules in lungs, no acute process throughout the abdomen Differential Diagnosis (chest pain, altered mental status, abdominal pain women, abdominal pain men, vaginal bleeding, weakness, fever, dyspnea, syncope, headache, dizziness, GI bleed, back pain, seizure, CVA, palpatations, mental health, musculoskeletal)? @Differential Abdominal Pain Men: Differential diagnosis remains broad however top considerations include this, cholecystitis, diverticulitis, colitis, ischemic bowel, UTI, gastroenteritis, constipation this is not all-inclusive list EKG interpreted by me (3pts min.). @ -As above X-rays interpreted by me (1pt min.). @No fracture or dislocation CT interpreted by me (1pt min.). @ -No free air or evidence of obstruction U/S interpreted by me (1pt. min.). @ -None done What testing was considered but not performed or refused? (CT, X-rays, U/S, labs)? Why? @ -None What meds were considered but not given or refused? Why? @I did consider administering morphine however patient has had a history of poor reaction to morphine in the past Did you discuss the management of the patient with other professionals (michael morse i.e. , PA, RAG CUTTING MACHINE OPERATOR, lab, RT, psych nurse, social worker health services, air marshal, teacher, chief clinical officer, block and case maker)? Give summary @ -No Was smoking cessation discussed for >3mins.? @ -No Was critical care preformed (if so, how long)? @ -No Were there social determinants of health that impacted care today? How? (Homelessness, low income, unemployed, alcoholism, drug addiction, transportation, low edu. Level, literacy, decrease access to med. care, nursing home, rehab)? @ -No Was there de-escalation of care discussed even if they declined (Discuss DNR or withdrawal of care, Hospice)? @ -No What co-morbidities impacted this encounter? (DM, HTN, Smoking, COPD, CAD, Cancer, CVA, ARF, Chemo, Hep., AIDS, mental health diagnosis, sleep apnea, morbid obesity)? @ -DM Was patient admitted / discharged? Hospital course, mention meds given and route, prescriptions, significant lab abnormalities, going to OR and other pertinent info. @ -Hospital course Admitted- Patient is a 73-year-old gentleman with a past medical history of hypertension, diabetes, atrial fibrillation, prior CVA presenting today for left-sided abdominal pain and diarrhea. On my assessment patient is in no acute distress. He is awake alert and pleasant. He is AO x 3 though is a poor historian, has difficulty describing timeline of events of recent hospitalizations and his symptoms. Exam significant for soft abdomen with active bowel sounds the left- sided tenderness to deep palpation noted. No masses noted. Of note during my exam I did notice erythema to patient's right ankle. Patient's right foot was uncovered and there did appear to be an ulcerative wound on the right great toe with surrounding erythema that extended up the ankle. This is not tender to palpation. Patient states that he was put on antibiotics for this by his doctor and was told that it was improving however patient unable to give further hx regarding this. Plan for IV fluids, CT abdomen/pelvis, XR right foot, comprehensive labs, IV abx (Rocephin). Anticipate admission for diabetic foot wound. Patient agreeable with POC. CT significant for an enlarged cirrhotic liver, colonic diverticulosis and an enlarged prostate. Labs reviewed and significant for mild leukocytosis white blood cell count 10.8, platelets 126, urinalysis with 4+ glucose. Labs reassuring. XR without signs concerning for osteomyelitis. Discussed case with Dr. Mcgee, who kindly accepts patient for admission, patient admitted in stable condition. Undiagnosed new problem with uncertain prognosis? @ -No Drug Therapy requiring intensive monitoring for toxicity (Heparin, Nitro, Insulin, Cardizem)? @ -No Were any procedures done? @ -No Diagnosis/symptom? @Diabetic foot wound, abdominal pain Acute, or Chronic, or Acute on Chronic? @ -Acute Uncomplicated (without systemic symptoms) or Complicated (systemic symptoms)? @ -Complicated Side effects of treatment? @ -No Exacerbation, Progression, or Severe Exacerbation? @ -No Poses a threat to life or bodily function? How? (Chest pain, [place], CO, pneumonia, PE, COPD, DKA, ARF, appy, cholecystitis, CVA, Diverticulitis, Homicidal, Suicidal, threat to staff... and all critical care pts) @ -Yes, if left untreated could lead to loss of patient's foot sepsis septic shock and - Lab Data Result diagrams: 02/14/24 05:07 02/14/24 05:07 Lab Results 02/11/24 02/11/24 02/11/24 Range/Units 03:12 03:12 03:12 WBC 10.8 H (3.8-10.6) k/uL RBC 5.62 (4.30-5.90) m/uL Hgb 14.9 (13.0-17.5) gm/dL Hct 46.5 (39.0-53.0) % MCV 82.7 (80.0-100.0) fL MCH 26.6 (25.0-35.0) pg MCHC 32.1 (31.0-37.0) g/dL RDW 18.5 H (11.5-15.5) % Plt Count 126 L (150-450) k/uL MPV 8.6 Neutrophils % 86 % Lymphocytes % 6 % Monocytes % 6 % Eosinophils % 1 % Basophils % 0 % Neutrophils # 9.3 H (1.3-7.7) k/uL Lymphocytes # 0.7 L (1.0-4.8) k/uL Monocytes # 0.7 (0-1.0) k/uL Eosinophils # 0.1 (0-0.7) k/uL Basophils # 0.0 (0-0.2) k/uL Hypochromasia Slight Poikilocytosis Slight Anisocytosis Slight Microcytosis Slight PT 12.6 H (10.0-12.5) sec INR 1.2 H (<1.2) APTT 31.0 H (22.0-30.0) sec Sodium 136 L (137-145) mmol/L Potassium 4.7 (3.5-5.1) mmol/L Chloride 107 (98-107) mmol/L Carbon Dioxide 22 (22-30) mmol/L Anion Gap 7 mmol/L BUN 18 (9-20) mg/dL Creatinine 1.08 (0.66-1.25) mg/dL Est GFR (CKD-EPI)AfAm 79 (>60 ml/min/1.73 sqM) Est GFR (CKD-EPI)NonAf 69 (>60 ml/min/1.73 sqM) Glucose 163 H (74-99) mg/dL Calcium 10.2 (8.4-10.2) mg/dL Total Bilirubin 1.0 (0.2-1.3) mg/dL AST 26 (17-59) U/L ALT 21 (4-49) U/L Alkaline Phosphatase 130 H (38-126) U/L Total Protein 7.0 (6.3-8.2) g/dL Albumin 4.4 (3.5-5.0) g/dL Amylase 57 (30-110) U/L Lipase 90 (23-300) U/L Urine Color Urine Appearance (Clear) Urine pH (5.0-8.0) Ur Specific [place] (1.001-1.035) Urine Protein (Negative) Urine Glucose (UA) (Negative) Urine Ketones (Negative) Urine Blood (Negative) Urine Nitrite (Negative) Urine Bilirubin (Negative) Urine Urobilinogen (<2.0) mg/dL Ur Leukocyte Esterase (Negative) 02/11/24 Range/Units 05:24 WBC (3.8-10.6) k/uL RBC (4.30-5.90) m/uL Hgb (13.0-17.5) gm/dL Hct (39.0-53.0) % MCV (80.0-100.0) fL MCH (25.0-35.0) pg MCHC (31.0-37.0) g/dL RDW (11.5-15.5) % Plt Count (150-450) k/uL MPV Neutrophils % % Lymphocytes % % Monocytes % % Eosinophils % % Basophils % % Neutrophils # (1.3-7.7) k/uL Lymphocytes # (1.0-4.8) k/uL Monocytes # (0-1.0) k/uL Eosinophils # (0-0.7) k/uL Basophils # (0-0.2) k/uL Hypochromasia Poikilocytosis Anisocytosis Microcytosis PT (10.0-12.5) sec INR (<1.2) APTT (22.0-30.0) sec Sodium (137-145) mmol/L Potassium (3.5-5.1) mmol/L Chloride (98-107) mmol/L Carbon Dioxide (22-30) mmol/L Anion Gap mmol/L BUN (9-20) mg/dL Creatinine (0.66-1.25) mg/dL Est GFR (CKD-EPI)AfAm (>60 ml/min/1.73 sqM) Est GFR (CKD-EPI)NonAf (>60 ml/min/1.73 sqM) Glucose (74-99) mg/dL Calcium (8.4-10.2) mg/dL Total Bilirubin (0.2-1.3) mg/dL AST (17-59) U/L ALT (4-49) U/L Alkaline Phosphatase (38-126) U/L Total Protein (6.3-8.2) g/dL Albumin (3.5-5.0) g/dL Amylase (30-110) U/L Lipase (23-300) U/L Urine Color Colorless Urine Appearance Clear (Clear) Urine pH 5.0 (5.0-8.0) Ur Specific [place] 1.029 (1.001-1.035) Urine Protein Negative (Negative) Urine Glucose (UA) 4+ H (Negative) Urine Ketones Negative (Negative) Urine Blood Negative (Negative) Urine Nitrite Negative (Negative) Urine Bilirubin Negative (Negative) Urine Urobilinogen <2.0 (<2.0) mg/dL Ur Leukocyte Esterase Negative (Negative) Disposition Clinical Impression: Diabetic foot infection, Abdominal pain Disposition: ADMITTED IP TO THIS HOSP Condition: Stable
[2024-02-11 05:37] LABS: Appearance,Urine Clear (Clear); Bilirubin,Urine Negative (Negative); Blood,Urine Negative (Negative); Color,Urine Colorless; Glucose,Urine (UA) 4+ (Negative); Ketones,Urine Negative (Negative); Leukocyte Esterase,Urine Negative (Negative); Nitrite,Urine Negative (Negative); Protein,Urine Negative (Negative); Specific Gravity,Urine 1.029 (1.001-1.035); Urobilinogen,Urine <2.0 mg/dL (<2.0)
[2024-02-11] MEDS ORDERED: NALOXONE 0.4 MG/ML 1 ML VIAL IV PRN (06:35)
--- NOTE | 2024-02-11 06:38 | P.HPIM ---
History of Present Illness H&P Date: 02/11/24 Patient is a 73-year-old male with a PMH of diastolic CHF, A-fib on Xarelto, type II DM, CAD status post tenting, hypertension, and hyperlipidemia who presents to the emergency room with complaints of abdominal pain and diarrhea. Patient reports that he is not experiencing persistent diarrhea for the past 3 to 4 weeks, 5-6 episodes of loose stools daily. Reports associated diffuse abdominal discomfort ranging from 3 out of 10 to 7 out of 10 in intensity, without associated vomiting. Patient has been seen for similar complaints multiple times over the past few weeks. Denies urinary complaints, fever, chills, melena, or bright red blood in stool. During the examination, the ED provider noted the patient had a right foot wound with erythema extending up the right leg. The patient states that he has taken a previous course of antibiotics for the chronic wound and has been following with a human resources representative. Denies any pain at the right foot but does have a history of peripheral neuropathy. Right foot x-ray was unremarkable in the emergency room with CT abdomen and pelvis showing an enlarged cirrhotic liver with colonic diverticulosis with an enlarged prostate with no acute abnormalities noted. Prior CT abdomen studies had revealed findings of mild colitis. Laboratory evaluation was remarkable for leukocytosis of 10.8, sodium 136, glucose 163, with UA showing 4+ glucose. ED documentation reviewed and case discussed with ED provider. Review of systems: Pertinent positives and negatives as discussed in HPI, a complete review of systems was performed and all other systems are negative. Physical examination: Vital signs reviewed General: non toxic, no distress, appears at stated age, normal weight Derm: Right foot unstageable ulcer with scab with surrounding erythema extending to mid vasquez, warm Head: atraumatic, normocephalic, symmetric Eyes: EOMI, no lid lag, anicteric sclera, pupils equal round reactive to light ENT: Nose and ears atraumatic Neck: No cervical lymphadenopathy, trachea midline, supple Mouth: no lip lesion, mucus membranes moist Cardiovascular: S1S2 reg, no murmur, positive dorsalis pedis pulse bilateral, no edema Lungs: CTA bilateral, no rhonchi, no rales, no accessory muscle use Abdominal: soft, minimal tenderness, no guarding Ext: muscle strength 5 out of 5 in all 4 extremities grossly, no gross muscle atrophy, no contractures, Neuro: CN II-XI grossly intact, no gross focal neuro deficits Psych: Alert, oriented, appropriate affect Assessment: Right foot ulcer with cellulitis Colitis Chronic conditions: diastolic CHF, A-fib on Xarelto, type II DM, CAD status post tenting, hypertension, and hyperlipidemia Imaging: Right foot x-ray was unremarkable in the emergency room with CT abdomen and pelvis showing an enlarged cirrhotic liver with colonic diverticulosis with an enlarged prostate with no acute abnormalities noted. Prior CT abdomen studies had revealed findings of mild colitis. Data Review: Laboratory evaluation was remarkable for leukocytosis of 10.8, sodium 136, glucose 163, with UA showing 4+ glucose. Plan: Continue with ceftriaxone 2 g daily Follow-up C. difficile testing Check calprotectin levels Wound care and infection disease consults Resume home medications once reconciled Clear liquid diet Insulin sliding scale and blood glucose monitoring DVT prophylaxis: Lovenox subcu The patient is admitted with an anticipated fewer than 2 midnight stay for evaluation of R foot cellulitis CODE STATUS: Full Code Discussed with: Patient Anticipated discharge place: Home Past Medical History Past Medical History: Atrial Fibrillation, Coronary Artery Disease (CAD), Canc er, Heart Failure, CVA/TIA, Diabetes Mellitus, GERD/Reflux, Hyperlipidemia, Hypertension, Myocardial Infarction ([place]), Sleep Apnea/CPAP/BIPAP, Thyroid Disorder Additional Past Medical History / Comment(s): gout, skin ca, colon cancer with resection and chemo (2017)., c-pap machine., ulcer on side of right great toe- receives wound tx ., BPH., gall bladder pain. Last Myocardial Infarction Date:: 2006 History of Any Multi-Drug Resistant Organisms: MRSA Date of last positivie culture/infection: 2022 MDRO Source:: right great toe Past Surgical History: Appendectomy, Bowel Resection, Heart Catheterization With Stent, Orthopedic Surgery Additional Past Surgical History / Comment(s): skin ca removed, lt shoulder surgery ,rt knee surgery, deviated septum surgery Past Anesthesia/Blood Transfusion Reactions: No Reported Reaction Date of Last Stent Placement:: 2006 Past Psychological History: Anxiety, Bipolar, Depression Smoking Status: Former smoker Past Alcohol Use History: Occasional Past Drug Use History: None Reported - Past Family History Father Family Medical History: Asthma, Hyperlipidemia Additional Family Medical History / Comment(s): at age 61. was a heavy smoker,prostate sx a week before he not sure what took him. Mother Family Medical History: Dementia Additional Family Medical History / Comment(s): at age 75 from alzheimers Medications and Allergies Home Medications Medication Instructions Recorded Confirmed Type Potassium Chloride [Klor-Con 20] 20 meq PO DAILY 01/15/14 11/21/23 History Pravastatin Sodium [Pravachol] 40 mg PO HS 01/15/14 11/21/23 History allopurinoL [Zyloprim] 100 mg PO HS 07/28/15 11/21/23 History Sertraline HCl [Zoloft] 200 mg PO DAILY 11/05/15 11/21/23 History Rivaroxaban [Xarelto] 20 mg PO HS 07/27/17 11/21/23 History Empagliflozin [Jardiance] 25 mg PO DAILY 06/10/21 11/21/23 History Famotidine 20 mg PO DAILY 06/10/21 11/21/23 History Insulin Glargine,Hum.rec.anlog 15 unit SQ HS 06/10/21 11/21/23 History [Lantus Solostar Pen] Pantoprazole [Protonix] 40 mg PO BID 06/10/21 11/21/23 History glipiZIDE [Glucotrol] 20 mg PO AC-BID 08/14/22 11/21/23 History Temazepam [Restoril] 15 mg PO HS 07/24/23 11/21/23 History Acetaminophen Tab [Tylenol] 1,000 mg PO Q6HR PRN #30 tablet 07/27/23 11/21/23 Rx hydrOXYzine HCL [Atarax] 10 mg PO QID PRN 08/06/23 11/21/23 History LORazepam [Ativan] 2 mg PO BID 08/11/23 11/21/23 History amLODIPine [Norvasc] 10 mg PO DAILY 11/21/23 11/21/23 History lisinopriL [Zestril] 10 mg PO DAILY 11/21/23 11/21/23 History Aspirin 81 mg PO DAILY 30 Days #30 tab 11/27/23 Rx Fenofibrate [Lofibra] 160 mg PO DAILY 30 Days #30 tab 11/27/23 Rx QUEtiapine [SEROquel] 25 mg PO BID PRN 30 Days #60 tab 11/27/23 Rx QUEtiapine [SEROquel] 50 mg PO HS 30 Days #30 tab 11/27/23 Rx busPIRone HCl [Buspar] 10 mg PO TID 30 Days #90 tab 11/27/23 Rx Allergies Allergy/AdvReac Type Severity Reaction Status Date / Time clopidogrel bisulfate Allergy Rash/Hives Verified 02/11/24 02:03 [From Plavix] Sulfa (Sulfonamide Allergy Rash/Hives Verified 02/11/24 02:03 Antibiotics) gabapentin AdvReac Aggression, Verified 02/11/24 02:03 anxiety, mood swings metformin AdvReac Diarrhea Verified 02/11/24 02:03 morphine AdvReac Hallucinati Verified 02/11/24 02:03 ons pregabalin [From Lyrica] AdvReac Aggression, Verified 02/11/24 02:03 anxiety, mood swings Physical Exam Vitals: Vital Signs Temp Pulse Resp BP Pulse Ox 02/11/24 06:19 98.5 F 75 21 173/88 95 02/11/24 05:35 81 18 137/86 95 02/11/24 03:09 98.1 F 84 18 163/98 85 L 02/11/24 02:02 74 18 151/79 96 Intake and Output 02/10/24 02/10/24 02/11/24 14:59 22:59 06:59 Other: Weight 107.955 kg Results CBC & Chem 7: 02/11/24 03:12 02/11/24 03:12 Labs: Abnormal Lab Results - Last 24 Hours (Table) 02/11/24 02/11/24 02/11/24 Range/Units 03:12 03:12 03:12 WBC 10.8 H (3.8-10.6) k/uL RDW 18.5 H (11.5-15.5) % Plt Count 126 L (150-450) k/uL Neutrophils # 9.3 H (1.3-7.7) k/uL Lymphocytes # 0.7 L (1.0-4.8) k/uL PT 12.6 H (10.0-12.5) sec INR 1.2 H (<1.2) APTT 31.0 H (22.0-30.0) sec Sodium 136 L (137-145) mmol/L Glucose 163 H (74-99) mg/dL Alkaline Phosphatase 130 H (38-126) U/L Urine Glucose (UA) (Negative) 02/11/24 Range/Units 05:24 WBC (3.8-10.6) k/uL RDW (11.5-15.5) % Plt Count (150-450) k/uL Neutrophils # (1.3-7.7) k/uL Lymphocytes # (1.0-4.8) k/uL PT (10.0-12.5) sec INR (<1.2) APTT (22.0-30.0) sec Sodium (137-145) mmol/L Glucose (74-99) mg/dL Alkaline Phosphatase (38-126) U/L Urine Glucose (UA) 4+ H (Negative)
[2024-02-11 07:48] LABS: Glucose,Whole Blood 152 mg/dL (70-110)
[2024-02-11] MEDS ORDERED: ENOXAPARIN 40 MG/0.4 ML SYRINGE SQ SCH (09:00)
[2024-02-11] MEDS: INSULIN ASPART (NovoLOG) 100 UNIT/ML VIAL SQ SCH (09:41)
[2024-02-11] MEDS: lisinopriL 10 MG TAB PO SCH (10:01)
[2024-02-11] MEDS: FAMOTIDINE 20 MG TAB PO SCH (10:02)
[2024-02-11] MEDS: FENOFIBRATE 160 MG TAB PO SCH (10:02)
[2024-02-11] MEDS: ASPIRIN 81 MG PO SCH (10:02)
[2024-02-11] MEDS: busPIRone HCl 10 MG TAB PO SCH (10:02)
[2024-02-11] MEDS: amLODIPine 10 MG TAB PO SCH (10:02)
[2024-02-11] MEDS: PRAVASTATIN SODIUM 40 MG TAB PO SCH (10:02)
[2024-02-11] MEDS: PANTOPRAZOLE 40 MG TABLET PO SCH (10:02)
[2024-02-11] MEDS: SERTRALINE 100 MG TAB PO SCH (10:02)
[2024-02-11 12:20] LABS: Glucose,Whole Blood 141 mg/dL (70-110)
[2024-02-11] MEDS ORDERED: VANCOMYCIN IV PER PHARMACY 1 EACH MISC MISCELLANE PRN (12:46)
[2024-02-11] MEDS: AMPICILLIN-SULBACTAM 3 GM in SODIUM CHLORIDE 0.9% 100 ML IVPB SCH (12:58)
--- NOTE | 2024-02-11 14:04 | P.GSCN ---
History of Present Illness Consult date: 02/11/24 Reason for Consult: Infected great toe callus, debridement and culture Requesting physician: Ramon Wilkerson History of present illness: Is a pleasant 73-year-old male who presented to the emergency department with complaints of abdominal pain and diarrhea. Patient has been having chronic diarrhea off-and-on for last 1 month duration. During his stay was noticed that he had cellulitis of the right lower extremity with swelling of his right great toe and callus. Past medical history includes atrial fibrillation on Xarelto, diabetes mellitus, peripheral neuropathy and diabetic wound. States he has had callus on his right foot for quite some time and has been following with [facility] for wound care. He denies any pain or feeling in the foot. Vascular surgery was consulted for debridement and possible deep tissue culture. Review of Systems A 14 point review systems was completed all pertinent positives and negatives as stated in the HPI. Past Medical History Past Medical History: Atrial Fibrillation, Coronary Artery Disease (CAD), Cancer, Heart Failure, CVA/TIA, Diabetes Mellitus, GERD/Reflux, Hyperlipidemia, Hypertension, Myocardial Infarction ([place]), Sleep Apnea/CPAP/BIPAP, Thyroid Disorder Additional Past Medical History / Comment(s): gout, skin ca, colon cancer with resection and chemo (2017)., c-pap machine., ulcer on side of right great toe- receives wound tx ., BPH., gall bladder pain. Last Myocardial Infarction Date:: 2006 History of Any Multi-Drug Resistant Organisms: MRSA Year Discovered:: 2022 MDRO Source:: right great toe Past Surgical History: Appendectomy, Bowel Resection, Heart Catheterization With Stent, Orthopedic Surgery Additional Past Surgical History / Comment(s): skin ca removed, lt shoulder surgery ,rt knee surgery, deviated septum surgery Past Anesthesia/Blood Transfusion Reactions: No Reported Reaction Date of Last Stent Placement:: 2006 Past Psychological History: Anxiety, Bipolar, Depression Smoking Status: Smoker, current status unknown Past Alcohol Use History: Occasional Additional Past Alcohol Use History / Comment(s): started smoking age 20- quit same year maybe total 3 packs in that time Past Drug Use History: None Reported Additional Drug Use History / Comment(s): past use of cbd gummies. - Past Family History Father Family Medical History: Asthma, Hyperlipidemia Additional Family Medical History / Comment(s): at age 61. was a heavy smoker,prostate sx a week before he not sure what took him. Mother Family Medical History: Dementia Additional Family Medical History / Comment(s): at age 75 from alzheimers Medications and Allergies Home Medications Medication Instructions Recorded Confirmed Type Potassium Chloride [Klor-Con 20] 20 meq PO DAILY 01/15/14 02/11/24 History Pravastatin Sodium [Pravachol] 40 mg PO HS 01/15/14 02/11/24 History allopurinoL [Zyloprim] 100 mg PO HS 07/28/15 02/11/24 History Sertraline HCl [Zoloft] 200 mg PO DAILY 11/05/15 02/11/24 History Rivaroxaban [Xarelto] 20 mg PO HS 07/27/17 02/11/24 History Empagliflozin [Jardiance] 25 mg PO DAILY 06/10/21 02/11/24 History Pantoprazole [Protonix] 40 mg PO BID 06/10/21 02/11/24 History glipiZIDE [Glucotrol] 20 mg PO AC-BID 08/14/22 02/11/24 History LORazepam [Ativan] 2 mg PO BID 08/11/23 02/11/24 History Fenofibrate [Lofibra] 160 mg PO DAILY 30 Days #30 tab 11/27/23 02/11/24 Rx QUEtiapine [SEROquel] 25 mg PO BID PRN 30 Days #60 tab 11/27/23 02/11/24 Rx Aspirin EC [Ecotrin Low Dose] 81 mg PO DAILY 02/11/24 02/11/24 History QUEtiapine FUMARATE [SEROquel] 50 mg PO HS 02/11/24 02/11/24 History Temazepam [Restoril] 7.5 mg PO HS 02/11/24 02/11/24 History busPIRone HCL 15 mg PO BID 02/11/24 02/11/24 History Allergies Allergy/AdvReac Type Severity Reaction Status Date / Time clopidogrel bisulfate Allergy Rash/Hives Verified 02/11/24 11:00 [From Plavix] Sulfa (Sulfonamide Allergy Rash/Hives Verified 02/11/24 11:00 Antibiotics) gabapentin AdvReac Aggression, Verified 02/11/24 11:00 anxiety, mood swings metformin AdvReac Diarrhea Verified 02/11/24 11:00 morphine AdvReac Hallucinati Verified 02/11/24 11:00 ons pregabalin [From Lyrica] AdvReac Aggression, Verified 02/11/24 11:00 anxiety, mood swings Surgical - Exam Vital Signs Pulse Resp BP Pulse Ox 74 18 151/79 96 02/11/24 02:02 02/11/24 02:02 02/11/24 02:02 02/11/24 02:02 General appearance: The patient is alert, oriented, appears in no acute distress. Obese. HET: Head is normocephalic and atraumatic. Pupils are equal and reactive. Neck: Supple. Heart: Regular. Lungs: Equal expansion, normal respiratory effort. Abdomen: Soft, nontender, nondistended. Extremities: Right lower extremity with erythema over her great toe, foot and up vasquez. Palpable DP and PT pulses. Right great toe swelling with callus on medial aspect and blood blister. Excuse me Neurological: No focal deficits. Alert and oriented. Results - Labs 02/11/24 03:12 02/11/24 03:12 Abnormal Lab Results - Last 24 Hours (Table) 02/11/24 02/11/24 02/11/24 Range/Units 03:12 03:12 03:12 WBC 10.8 H (3.8-10.6) k/uL RDW 18.5 H (11.5-15.5) % Plt Count 126 L (150-450) k/uL Neutrophils # 9.3 H (1.3-7.7) k/uL Lymphocytes # 0.7 L (1.0-4.8) k/uL PT 12.6 H (10.0-12.5) sec INR 1.2 H (<1.2) APTT 31.0 H (22.0-30.0) sec Sodium 136 L (137-145) mmol/L Glucose 163 H (74-99) mg/dL POC Glucose (mg/dL) (70-110) mg/dL Alkaline Phosphatase 130 H (38-126) U/L Urine Glucose (UA) (Negative) 02/11/24 02/11/24 02/11/24 Range/Units 05:24 07:47 12:12 WBC (3.8-10.6) k/uL RDW (11.5-15.5) % Plt Count (150-450) k/uL Neutrophils # (1.3-7.7) k/uL Lymphocytes # (1.0-4.8) k/uL PT (10.0-12.5) sec INR (<1.2) APTT (22.0-30.0) sec Sodium (137-145) mmol/L Glucose (74-99) mg/dL POC Glucose (mg/dL) 152 H 141 H (70-110) mg/dL Alkaline Phosphatase (38-126) U/L Urine Glucose (UA) 4+ H (Negative) Diabetes panel 02/11/24 Range/Units 03:12 Sodium 136 L (137-145) mmol/L Potassium 4.7 (3.5-5.1) mmol/L Chloride 107 (98-107) mmol/L Carbon Dioxide 22 (22-30) mmol/L BUN 18 (9-20) mg/dL Creatinine 1.08 (0.66-1.25) mg/dL Glucose 163 H (74-99) mg/dL Calcium 10.2 (8.4-10.2) mg/dL AST 26 (17-59) U/L ALT 21 (4-49) U/L Alkaline Phosphatase 130 H (38-126) U/L Total Protein 7.0 (6.3-8.2) g/dL Albumin 4.4 (3.5-5.0) g/dL Calcium panel 02/11/24 Range/Units 03:12 Calcium 10.2 (8.4-10.2) mg/dL Albumin 4.4 (3.5-5.0) g/dL Pituitary panel 02/11/24 Range/Units 03:12 Sodium 136 L (137-145) mmol/L Potassium 4.7 (3.5-5.1) mmol/L Chloride 107 (98-107) mmol/L Carbon Dioxide 22 (22-30) mmol/L BUN 18 (9-20) mg/dL Creatinine 1.08 (0.66-1.25) mg/dL Glucose 163 H (74-99) mg/dL Calcium 10.2 (8.4-10.2) mg/dL Adrenal panel 02/11/24 Range/Units 03:12 Sodium 136 L (137-145) mmol/L Potassium 4.7 (3.5-5.1) mmol/L Chloride 107 (98-107) mmol/L Carbon Dioxide 22 (22-30) mmol/L BUN 18 (9-20) mg/dL Creatinine 1.08 (0.66-1.25) mg/dL Glucose 163 H (74-99) mg/dL Calcium 10.2 (8.4-10.2) mg/dL Total Bilirubin 1.0 (0.2-1.3) mg/dL AST 26 (17-59) U/L ALT 21 (4-49) U/L Alkaline Phosphatase 130 H (38-126) U/L Total Protein 7.0 (6.3-8.2) g/dL Albumin 4.4 (3.5-5.0) g/dL - Imaging Comments: Foot x-ray with no acute findings. Assessment and Plan Assessment: 1. Right great toe callus 2. Right lower extremity cellulitis 3. Right great toe chronic wound/callus 4. Diabetes mellitus 5. Atrial fibrillation on Xarelto Plan: 1. Plan for bedside debridement with deep tissue cultures 2. Antibiotics per recommendations from infectious disease 3. Iodoform packing daily Thank you for this consultation, we will continue to follow. The impression and plan of care has been dictated as directed. I performed a history and examination of this patient, discussed the same with the dictator. I agree with the dictator's note ,documented as a scribe. Any additional findings or plans will be noted.
--- NOTE | 2024-02-11 14:54 | P.OP ---
Date of Procedure: 02/11/24 Preoperative Diagnosis: Callus right great toe at the middle tarsal phalangeal joint Right great toe cellulitis. Postoperative Diagnosis: Same, plus subcutaneous abscess. Procedure(s) Performed: Sharp excisional debridement right great toe callus and wound culture. Wound measures 3 cm x 1 cm x 4 mm. Implants: None. Anesthesia: none Surgeon: Farrukh Proctor Estimated Blood Loss (ml): 1 IV fluids (ml): 0 Urine output (ml): 0 Pathology: other (Wound culture) Condition: stable Disposition: no change Indications for Procedure: Patient is a 73-year-old male presented with erythema of the right great toe. He has a large callus at the first metatarsal phalangeal head in the area surrounded by erythematous soft tissue reaction. Given the history of diabetes as well as the clinical findings of callus and erythema it is suspected the patient has underlying soft tissue abscess and the patient is offered debridement of callus and drainage of abscess. The procedure, risk and benefits were discussed. All questions were answered to patient's satisfaction. Consent form was signed. Operative Findings: Tunneling heading toward the tip of the great toe which required extension of the incision. Description of Procedure: Patient was placed supine in his bed. The right great toe and foot area were sterilely prepped. The patient's foot is insensate and no anesthesia was required. The patient has a callus at the first metatarsal phalangeal head. Utilizing a surgical scalpel this was shaved down. This revealed a cavity which went completely debrided measured 3 cm x 1 cm x 4 mm. Bloody/purulent drainage was expressed and this was cultured. The wound was irrigated and packed with iodoform gauze. Appropriate dressing was applied. Patient tolerated the procedure well. Findings were discussed [place]unnery with the patient but is well as with the patient's .
[2024-02-11] MEDS: VANCOMYCIN 1,750 MG in SODIUM CHLORIDE 0.9% 500 ML 500 ML IVPB ONE (15:42)
--- NOTE | 2024-02-11 16:17 | P.PN ---
Subjective Progress Note Date: 02/11/24 Hospital course: Patient is a very pleasant 73-year-old male with a past medical history of CAD status post stenting, atrial fibrillation on anticoagulation with Xarelto, hypertension, hyperlipidemia, hypothyroidism, GERD, insulin-dependent diabetes mellitus, and colon cancer status post bowel resection and chemotherapy in remission since 2017. He presented to the emergency department with a chief complaint of abdominal pain, diarrhea, and concerns of infection to right great toe. Upon arrival to our facility, patient underwent evaluation in the emergency department. Vital signs upon arrival show blood pressure 151/79, heart rate 74, respiratory rate 18, temp 98.1 F, and SpO2 of 96% on room air. Labs completed and reviewed. CBC showing leukocytosis with WBC count of 10.8 and thrombocytopenia with platelet count of 126. Coagulation profile showing elevated PT of 12.6, INR 1.2, and PTT of 31.0. BMP unremarkable with the ex ception of elevated glucose of 163. Liver profile showing elevated alkaline phosphatase of 130 otherwise normal findings. Urinalysis positive for glucose negative for infection. X-ray right foot negative for acute osseous abnormality. CT abdomen and pelvis showing enlarged cirrhotic liver with c olonic diverticulosis and enlarged prostate. Patient was started on IV antibiotics with Rocephin and admitted under our services with consultation to infectious disease. Physical exam: Vital signs reviewed and stable. General: Nontoxic, no distress and appears stated age. Derm: Skin warm and dry, normal coloration for ethnicity. Patient with scab/wound to right great toe accompanied by mild swelling and moderate surrounding erythema extending up the dorsal surface of right foot and right lower leg. Head: Atraumatic, normocephalic and symmetric. Eyes: EOMs intact, no lid lag, and anicteric sclera. Mouth: no lip lesions, mucus membranes moist Cardiovascular: Irregularly irregular, positive posterior tibial pulses bilaterally, and cap refill < 2 seconds. Lungs: Respirations even, regular, and unlabored on room air. Lungs CTA bilaterally, no rhonchi, no rales, no wheezing, and no accessory muscle usage. Abdominal: soft, nontender to palpation, no guarding, no appreciable organomegaly Ext: Movement and sensation intact. No gross muscle atrophy, no edema, no contractures Neuro: Speech clear, face symmetrical and CN II-XII grossly intact with no noted focal neuro deficits Psych: Alert and oriented to person, place, time, and situation. Patient pleasant and cooperative.. Assessment and Plan of Care: Diabetic wound right great toe with surrounding cellulitis of right lower extremity -Vascular surgery consulted for possible debridement and deep tissue culture, appreciate recommendations. -Infectious disease following discontinuing Rocephin and starting patient on Unasyn and vancomycin. -Continue supportive care and pain management. -Continue IV antibiotics with Unasyn 3 g every 6 hours and vancomycin 1750 mg every 16 hours with close monitoring of renal function and vancomycin trough to monitor for any signs of vancomycin associated renal toxicity. Diabetes mellitus with hyperglycemia. -Continue Levemir 15 units nightly glycemic protocol with NovoLog sliding scale to maintain tight glycemic control throughout hospitalization. Abdominal pain diarrhea -Likely secondary to adverse effects of recent antibiotic. Provide supportive care. -CT abdomen and pelvis did reveal mild diverticulosis but negative for diverticulitis. -Follow up on C. difficile. Severe Anxiety with depression. -Patient follows with psychiatry at [place]. -Patient to continue daily medication regimen with BuSpar 15 mg Seroquel 50 mg nightly, Restoril 7.5 mg nightly, Ativan 2 mg twice daily, and Seroquel 25 mg twice daily as needed for anxiety/agitation. Chronic atrial fibrillation with a controlled ventricular rate. -Continue daily medication regimen with Xarelto 20 mg nightly. Hypertension. -Continue daily medication regimen with amlodipine 10 mg daily and lisinopril 10 mg daily. Hyperlipidemia. -Continue daily medication regimen with pravastatin 40 mg nightly and fenofibrate 160 mg daily. History of CAD status post stenting. -Continue daily medication regimen with aspirin 81 mg daily, amlodipine 10 mg daily, lisinopril 10 mg daily, pravastatin 40 mg nightly, Xarelto 20 mg nightly. Thrombocytopenia, chronic and stable GERD. -Continue home GI prophylaxis with Protonix 40 mg p.o. twice daily and Pepcid 20 mg daily. Chronic cervical neck and back pain -Patient is scheduled to undergo cervical surgery with Dr. Ayers next week. CODE STATUS: Full code DVT prophylaxis: Xaretlo Anticipated discharge date: Pending clinical course Anticipated discharge place: Home Patient was seen independently by Nurse Pracitioner. This document was prepared using [employer] dictation software. Please allow for errors in receiving worker, while rare they do occur. I reviewed the documentation as provided by the REGAN above, who is the original author of this note. I agree with the documented assessment and plan, with the following changes: none Objective - Vital Signs Vital signs: Vital Signs Temp 98.7 F 02/11/24 07:42 Pulse 75 02/11/24 07:42 Resp 18 02/11/24 07:42 BP 128/85 02/11/24 07:42 Pulse Ox 97 02/11/24 07:42 FiO2 Intake & Output 02/10/24 02/11/24 02/11/24 18:59 06:59 18:59 Weight 107.955 kg - Labs CBC & Chem 7: 02/11/24 03:12 02/11/24 03:12 Labs: Abnormal Lab Results - Last 24 Hours (Table) 02/11/24 02/11/24 02/11/24 Range/Units 03:12 03:12 03:12 WBC 10.8 H (3.8-10.6) k/uL RDW 18.5 H (11.5-15.5) % Plt Count 126 L (150-450) k/uL Neutrophils # 9.3 H (1.3-7.7) k/uL Lymphocytes # 0.7 L (1.0-4.8) k/uL PT 12.6 H (10.0-12.5) sec INR 1.2 H (<1.2) APTT 31.0 H (22.0-30.0) sec Sodium 136 L (137-145) mmol/L Glucose 163 H (74-99) mg/dL POC Glucose (mg/dL) (70-110) mg/dL Alkaline Phosphatase 130 H (38-126) U/L Urine Glucose (UA) (Negative) 02/11/24 02/11/24 Range/Units 05:24 07:47 WBC (3.8-10.6) k/uL RDW (11.5-15.5) % Plt Count (150-450) k/uL Neutrophils # (1.3-7.7) k/uL Lymphocytes # (1.0-4.8) k/uL PT (10.0-12.5) sec INR (<1.2) APTT (22.0-30.0) sec Sodium (137-145) mmol/L Glucose (74-99) mg/dL POC Glucose (mg/dL) 152 H (70-110) mg/dL Alkaline Phosphatase (38-126) U/L Urine Glucose (UA) 4+ H (Negative)
[2024-02-11 17:08] LABS: Glucose,Whole Blood 151 mg/dL (70-110)
[2024-02-11 20:23] LABS: Glucose,Whole Blood 128 mg/dL (70-110)
[2024-02-11] MEDS: RIVAROXABAN 20 MG TAB PO SCH (20:39)
[2024-02-11] MEDS: LORazepam 1 MG TAB PO SCH (20:39)
[2024-02-11] MEDS: QUEtiapine 50 MG TAB PO SCH (20:39)
[2024-02-11] MEDS: busPIRone HCl 5 MG TAB PO SCH (20:39)
[2024-02-11] MEDS: allopurinoL 100 MG TAB PO SCH (20:39)
[2024-02-11] MEDS: TEMAZEPAM 7.5 MG CAP PO SCH (20:39)
[2024-02-11] MEDS: INSULIN DETEMIR (LEVEMIR) 100 UNIT/ML SYR SQ SCH (20:39)
[2024-02-11] MEDS ORDERED: TEMAZEPAM 15 MG CAP PO SCH (21:00)
[2024-02-11] MEDS: ACETAMINOPHEN TAB 325 MG TAB PO PRN (21:33)
--- NOTE | 2024-02-11 22:13 | P.CONS ---
History of Present Illness - Reason for Consult Consult date: 02/11/24 Right lower extremity cellulitis Requesting physician: Brandan Mcgee - Chief Complaint Right big toe swelling and redness x days - History of Present Illness Patient is a 73-year-old male with a past medical history significant for diabetes mellitus reflux hypertension hyperlipidemia DC coronary disease and atrial fibrillation presenting to the hospital for evaluation of significant diarrhea patient also noticed to having right big toe swelling and redness that has been spreading to the right lower leg that has prompted this infectious disease consultation patient mention has been dealing with callus on the plantar aspect of the right big toe that has been taken care of by 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 security engineer however for the last few days noticed to have increasing swelling and redness of the right big toe with redness also extending up to the right foot patient did have some dull aching pain moderate intensity without any radiation patient on presentation the hospital was afebrile and no fever have been recorded subsequently patient was not tachycardic hypotensive or hypoxic patient did have a white count of 10.8 with a left shift creatinine has been normal electrolytes are normal liver enzymes are normal urine has been negative patient did have CT abdominal pelvis with evidence of diverticulosis but no diverticulitis patient has been started on vancomycin infectious disease was consulted for right lower extremity cellulitis Review of Systems Positive point and negatives has been mentioned in the HPI, complete review of systems was performed and all other systems are negative Past Medical History Past Medical History: Atrial Fibrillation, Coronary Artery Disease (CAD), Cancer, Heart Failure, CVA/TIA, Diabetes Mellitus, GERD/Reflux, Hyperlipidemia, Hypertension, Myocardial Infarction (DC), Sleep Apnea/CPAP/BIPAP, Thyroid Disorder Additional Past Medical History / Comment(s): gout, skin ca, colon cancer with resection and chemo (2017)., c-pap machine., ulcer on side of right great toe- receives wound tx ., BPH., gall bladder pain. Last Myocardial Infarction Date:: 2006 History of Any Multi-Drug Resistant Organisms: MRSA Year Discovered:: 2022 MDRO Source:: right great toe Past Surgical History: Appendectomy, Bowel Resection, Heart Catheterization With Stent, Orthopedic Surgery Additional Past Surgical History / Comment(s): skin ca removed, lt shoulder surgery ,rt knee surgery, deviated septum surgery Past Anesthesia/Blood Transfusion Reactions: No Reported Reaction Date of Last Stent Placement:: 2006 Past Psychological History: Anxiety, Bipolar, Depression Smoking Status: Smoker, current status unknown Past Alcohol Use History: Occasional Additional Past Alcohol Use History / Comment(s): started smoking age 20- quit same year maybe total 3 packs in that time Past Drug Use History: None Reported Additional Drug Use History / Comment(s): past use of cbd gummies. - Past Family History Father Family Medical History: Asthma, Hyperlipidemia Additional Family Medical History / Comment(s): at age 61. was a heavy smoker,prostate sx a week before he not sure what took him. Mother Family Medical History: Dementia Additional Family Medical History / Comment(s): at age 75 from alzheimers Medications and Allergies Home Medications Medication Instructions Recorded Confirmed Type Potassium Chloride [Klor-Con 20] 20 meq PO DAILY 01/15/14 02/11/24 History Pravastatin Sodium [Pravachol] 40 mg PO HS 01/15/14 02/11/24 History allopurinoL [Zyloprim] 100 mg PO HS 07/28/15 02/11/24 History Sertraline HCl [Zoloft] 200 mg PO DAILY 11/05/15 02/11/24 History Rivaroxaban [Xarelto] 20 mg PO HS 07/27/17 02/11/24 History Empagliflozin [Jardiance] 25 mg PO DAILY 06/10/21 02/11/24 History Pantoprazole [Protonix] 40 mg PO BID 06/10/21 02/11/24 History glipiZIDE [Glucotrol] 20 mg PO AC-BID 08/14/22 02/11/24 History LORazepam [Ativan] 2 mg PO BID 08/11/23 02/11/24 History Fenofibrate [Lofibra] 160 mg PO DAILY 30 Days #30 tab 11/27/23 02/11/24 Rx QUEtiapine [SEROquel] 25 mg PO BID PRN 30 Days #60 tab 11/27/23 02/11/24 Rx Aspirin EC [Ecotrin Low Dose] 81 mg PO DAILY 02/11/24 02/11/24 History QUEtiapine FUMARATE [SEROquel] 50 mg PO HS 02/11/24 02/11/24 History Temazepam [Restoril] 7.5 mg PO HS 02/11/24 02/11/24 History busPIRone HCL 15 mg PO BID 02/11/24 02/11/24 History Allergies Allergy/AdvReac Type Severity Reaction Status Date / Time clopidogrel bisulfate Allergy Rash/Hives Verified 02/11/24 11:00 [From Plavix] Sulfa (Sulfonamide Allergy Rash/Hives Verified 02/11/24 11:00 Antibiotics) gabapentin AdvReac Aggression, Verified 02/11/24 11:00 anxiety, mood swings metformin AdvReac Diarrhea Verified 02/11/24 11:00 morphine AdvReac Hallucinati Verified 02/11/24 11:00 ons pregabalin [From Lyrica] AdvReac Aggression, Verified 02/11/24 11:00 anxiety, mood swings Physical Exam Vitals: Vital Signs Temp Pulse Pulse Resp BP BP Pulse Ox 02/11/24 08:00 97.3 F L 95 17 149/89 96 02/11/24 07:42 98.7 F 75 18 128/85 97 02/11/24 06:19 98.5 F 75 21 173/88 95 02/11/24 05:35 81 18 137/86 95 02/11/24 03:09 98.1 F 84 18 163/98 85 L 02/11/24 02:02 74 18 151/79 96 Intake and Output 02/10/24 02/11/24 02/11/24 22:59 06:59 14:59 Other: Weight 107.955 kg GENERAL DESCRIPTION: Elderly male lying in bed, no distress. No tachypnea or accessory muscle of respiration use. HEENT: Shows Pallor , no scleral icterus. Oral mucous membrane is dry. No pharyngeal erythema or thrush NECK: Trachea central, no thyromegaly. LUNGS: Unlabored breathing. Clear to auscultation anteriorly. No wheeze or crackle. HEART: S1, S2, regular rate and rhythm. No loud murmur ABDOMEN: Soft, no tenderness , guarding or rigidity, no organomegaly EXTREMITIES: Right big toe did have significant swelling and redness he did have an infected callus on the plantar aspect of the right foot with some cellulitis extending to the right lower leg SKIN: No rash, no masses palpable. NEUROLOGICAL: The patient is awake, alert, oriented x3, mood and affect normal. Results CBC & Chem 7: 02/11/24 03:12 02/11/24 03:12 Labs: Abnormal Lab Results - Last 24 Hours (Table) 02/11/24 02/11/24 02/11/24 Range/Units 03:12 03:12 03:12 WBC 10.8 H (3.8-10.6) k/uL RDW 18.5 H (11.5-15.5) % Plt Count 126 L (150-450) k/uL Neutrophils # 9.3 H (1.3-7.7) k/uL Lymphocytes # 0.7 L (1.0-4.8) k/uL PT 12.6 H (10.0-12.5) sec INR 1.2 H (<1.2) APTT 31.0 H (22.0-30.0) sec Sodium 136 L (137-145) mmol/L Glucose 163 H (74-99) mg/dL POC Glucose (mg/dL) (70-110) mg/dL Alkaline Phosphatase 130 H (38-126) U/L Urine Glucose (UA) (Negative) 02/11/24 02/11/24 Range/Units 05:24 07:47 WBC (3.8-10.6) k/uL RDW (11.5-15.5) % Plt Count (150-450) k/uL Neutrophils # (1.3-7.7) k/uL Lymphocytes # (1.0-4.8) k/uL PT (10.0-12.5) sec INR (<1.2) APTT (22.0-30.0) sec Sodium (137-145) mmol/L Glucose (74-99) mg/dL POC Glucose (mg/dL) 152 H (70-110) mg/dL Alkaline Phosphatase (38-126) U/L Urine Glucose (UA) 4+ H (Negative) Assessment and Plan (1) Diabetic ulcer of right foot Current Visit: Yes Status: Acute Code(s): E11.621 - TYPE 2 DIABETES MELLITUS WITH FOOT ULCER; L97.519 - NON-PRS CHRONIC ULCER OTH PRT RIGHT FOOT W UNSP SEVER ITY SNOMED Code(s): 844263550 (2) Diabetic infection of right foot Current Visit: No Status: Acute Code(s): E11.628 - TYPE 2 DIABETES MELLITUS WITH OTHER SKIN COMPLICATIONS; L08.9 - LOCAL INFECTION OF THE SKIN AND SUBCUTANEOUS TISSUE, UNSP SNOMED Code(s): 075506217 Plan: 1patient with right diabetic foot infection in this patient who did have an infected callus on the right big toe with secondary cellulitis of the right lower extremity we will need to cover for the polymicrobial darius associated with diabetic foot infection. 2patient benefit from vascular surgery evaluation excision of the infected callus and deep culture vascular surgery was consulted. 3patient to continue with the vancomycin watching his kidney function closely will add Unasyn pending finalization of the culture. We will follow on clinical condition and cultures to further adjust medication if needed Thank you for this consultation we will follow the patient along with you Dictation was produced using [employer] dictation software. please excuse any grammatical, word or spelling errors. Time with Patient: Greater than 30
[2024-02-11] MEDS: VANCOMYCIN 1,750 MG in SODIUM CHLORIDE 0.9% 500 ML 500 ML IVPB SCH (23:38)
[2024-02-12] MEDS: QUEtiapine 25 MG TAB PO PRN (02:44)
[2024-02-12 05:19] LABS: African American GFR (CKD) >90 (>60 ml/min/1.73 sqM); Non-African American GFR(CKD) 88 (>60 ml/min/1.73 sqM)
[2024-02-12 06:53] LABS: Glucose,Whole Blood 114 mg/dL (70-110)
[2024-02-12] MEDS: ASPIRIN 81 MG PO SCH (07:05)
--- NOTE | 2024-02-12 11:12 | P.PN ---
Subjective Progress Note Date: 02/12/24 Principal diagnosis: Right great toe callus/wound Patient is seen and examined today as a follow-up. Physical therapy is at the bedside getting ready to work with patient. He denies any pain to his right foot. I yesterday he underwent bedside debridement and deep tissue culture. Cultures are currently pending. Patient is concerned about his back surgery that is scheduled for next week whether or not he will need to postpone it. Patient has been afebrile. Objective - Vital Signs Vital signs: Vital Signs Temp 97.6 F 02/12/24 07:22 Pulse 69 02/12/24 07:22 Resp 17 02/12/24 07:22 BP 126/82 02/12/24 07:22 Pulse Ox 96 02/12/24 07:22 FiO2 Intake & Output 02/11/24 02/12/24 02/12/24 18:59 06:59 18:59 Intake Total 1780 Balance 1780 Intake: Intake, IV Titration 700 Amount Ampicillin-Sulbactam 3 gm 200 In Sodium Chloride 0.9% 100 ml @ 200 mls/hr IVPB Q6HR [facility] Rx#:[id number] Vancomycin 1,750 mg In 500 Sodium Chloride 0.9% 500 ml 500 ml @ 167 mls/hr IVPB Q16H [facility] Rx#: [id number] Oral 1080 Other: # Voids 5 1 # Bowel Movements 1 1 - Exam General appearance: The patient is alert, oriented, appears in no acute distres s. HET: Head is normocephalic and atraumatic. Neck: Supple. Heart: Regular. Lungs: Equal expansion, normal respiratory effort. Abdomen: Soft, nondistended. Extremities: Right foot with dressing clean dry and intact. Palpable PT and DP pulse. Neurological: No focal deficits. - Labs CBC & Chem 7: 02/11/24 03:12 02/12/24 04:33 Labs: Abnormal Lab Results - Last 24 Hours (Table) 02/11/24 02/11/24 02/11/24 Range/Units 12:12 17:03 20:21 POC Glucose (mg/dL) 141 H 151 H 128 H (70-110) mg/dL 02/12/24 Range/Units 06:48 POC Glucose (mg/dL) 114 H (70-110) mg/dL Microbiology - Last 24 Hours (Table) 02/11/24 14:37 Gram Stain - Preliminary Toe - Right First Assessment and Plan Assessment: 1. Infected right great toe callus status post debridement and deep tissue culture 2. Right lower extremity cellulitis 3. Right great toe chronic wound/callus 4. Diabetes mellitus 5. Atrial fibrillation on Xarelto Plan: 1. Patient is status post debridement of right great toe callus 2. Antibiotics per recommendations from infectious disease 3. Iodoform packing daily 4. Recommend patient follow-up with wound clinic as an outpatient Thank you for this consultation, we we will sign off at this time. The impression and plan of care has been dictated as directed. Dr. Pittman I performed a history and examination of this patient, discussed the same with the dictator. I agree with the dictator's note ,documented as a scribe. Any additional findings or plans will be noted.
[2024-02-12 12:04] LABS: Glucose,Whole Blood 173 mg/dL (70-110)
[2024-02-12] MEDS: VANCOMYCIN 1,750 MG in SODIUM CHLORIDE 0.9% 500 ML 500 ML IVPB SCH (14:24)
--- NOTE | 2024-02-12 15:33 | P.PN ---
Subjective Progress Note Date: 02/12/24 Hospital course: Patient is a very pleasant 73-year-old male with a past medical history of CAD status post stenting, atrial fibrillation on anticoagulation with Xarelto, hypertension, hyperlipidemia, hypothyroidism, GERD, insulin-dependent diabetes mellitus, liver cirrhosis and colon cancer status post bowel resection and chemotherapy in remission since 2017. He presented to the emergency department with a chief complaint of abdominal pain, diarrhea, and concerns of infection to right great toe. Upon arrival to our facility, patient underwent evaluation in the emergency department. Vital signs upon arrival show blood pressure 151/79, heart rate 74, respiratory rate 18, temp 98.1 F, and SpO2 of 96% on room air. Labs completed and reviewed. CBC showing leukocytosis with WBC count of 10.8 and thrombocytopenia with platelet count of 126. Coagulation profile showing elevated PT of 12.6, INR 1.2, and PTT of 31.0. BMP unremarkable with the exception of elevated glucose of 163. Liver profile showing elevated alkaline phosphatase of 130 otherwise normal findings. Urinalysis positive for glucose negative for infection. X-ray right foot negative for acute osseous abnormality. CT abdomen and pelvis showing enlarged cirrhotic liver with colonic diverticulosis and enlarged prostate. Patient was started on IV antibiotics with Rocephin and admitted under our services with consultation to infectious disease. Physical exam: Patient seen and fully evaluated at bedside this morning. He currently reports feeling mild abdominal cramping otherwise denies any complaints at this time. Patient denies further episodes of diarrhea, nausea, or vomiting. Vital signs reviewed and stable. General: Nontoxic, no distress and appears stated age. Derm: Skin warm and dry, normal coloration for ethnicity. Dressing in place to right foot. Head: Atraumatic, normocephalic and symmetric. Eyes: EOMs intact, no lid lag, and anicteric sclera. Mouth: no lip lesions, mucus membranes moist Cardiovascular: Irregularly irregular, positive posterior tibial pulses bilaterally, and cap refill < 2 seconds. Lungs: Respirations even, regular, and unlabored on room air. Lungs CTA bilaterally, no rhonchi, no rales, no wheezing, and no accessory muscle usage. Abdominal: soft, nontender to palpation, no guarding, no appreciable organomegaly Ext: Movement and sensation intact. No gross muscle atrophy, no edema, no contractures Neuro: Speech clear, face symmetrical and CN II-XII grossly intact with no noted focal neuro deficits Psych: Alert and oriented to person, place, time, and situation. Patient pleasant and cooperative.. Assessment and Plan of Care: Diabetic wound right great toe with surrounding cellulitis of right lower extremity -Vascular surgery following and performed sharp excisional debridement of right great toe callus and wound culture on 02/11/2024. -Infectious disease following, reviewed documentation in chart. -Follow-up on wound culture results. -Continue supportive care and pain management. -Continue IV antibiotics with Unasyn 3 g every 6 hours and vancomycin 1750 mg every 12 hours with close monitoring of renal function and vancomycin trough to monitor for any signs of vancomycin associated renal toxicity. Diabetes mellitus with hyperglycemia. -Continue Levemir 15 units nightly glycemic protocol with NovoLog sliding scale to maintain tight glycemic control throughout hospitalization. Abdominal pain with diarrhea -Likely secondary to adverse effects of recent antibiotic. Provide supportive care. -CT abdomen and pelvis did reveal mild diverticulosis but negative for diverticulitis. -Follow up on C. difficile. Unlikely C. difficile, patient denies further episodes of diarrhea. Severe Anxiety with depression. -Patient follows with psychiatry at [place]. -Patient to continue daily medication regimen with BuSpar 15 mg Seroquel 50 mg nightly, Restoril 7.5 mg nightly, Ativan 2 mg twice daily, and Seroquel 25 mg twice daily as needed for anxiety/agitation. Chronic atrial fibrillation with a controlled ventricular rate. -Continue daily medication regimen with Xarelto 20 mg nightly. Hypertension. -Continue daily medication regimen with amlodipine 10 mg daily and lisinopril 10 mg daily. Hyperlipidemia. -Continue daily medication regimen with pravastatin 40 mg nightly and fenofibrate 160 mg daily. History of CAD status post stenting. -Continue daily medication regimen with aspirin 81 mg daily, amlodipine 10 mg daily, lisinopril 10 mg daily, pravastatin 40 mg nightly, Xarelto 20 mg nightly. Thrombocytopenia, chronic and stable GERD. -Continue home GI prophylaxis with Protonix 40 mg p.o. twice daily and Pepcid 20 mg daily. Chronic cervical neck and back pain -Patient is scheduled to undergo cervical surgery with Dr. Ayers next week. Data and imaging reviewed Vital signs reviewed. Blood pressure 126/82, heart rate 69, respiratory rate 17, temp 97.6 F, and SpO2 of 96% on room air. Labs reviewed. Blood glucose 114. Renal function unremarkable with creatinine 0.84 and GFR greater than 90. CODE STATUS: Full code: DVT prophylaxis: Xaretlo Anticipated discharge date: Pending clinical course Anticipated discharge place: Home Patient was seen independently by Nurse Pracitioner. This document was prepared using [employer] dictation software. Please allow for errors in waterworks chief engineer, while rare they do occur. I reviewed the documentation as provided by the REGAN above, who is the original author of this note. I agree with the documented assessment and plan, with the following changes: none Objective - Vital Signs Vital signs: Vital Signs Temp 97.6 F 02/12/24 07:22 Pulse 69 02/12/24 07:22 Resp 17 02/12/24 07:22 BP 126/82 02/12/24 07:22 Pulse Ox 96 02/12/24 07:22 FiO2 Intake & Output 02/11/24 02/12/24 02/12/24 18:59 06:59 18:59 Intake Total 1780 Balance 1780 Intake: Intake, IV Titration 700 Amount Ampicillin-Sulbactam 3 gm 200 In Sodium Chloride 0.9% 100 ml @ 200 mls/hr IVPB Q6HR [facility] Rx#:[id number] Vancomycin 1,750 mg In 500 Sodium Chloride 0.9% 500 ml 500 ml @ 167 mls/hr IVPB Q16H [facility] Rx#: [id number] Oral 1080 Other: # Voids 5 1 # Bowel Movements 1 1 - Labs CBC & Chem 7: 02/14/24 05:07 02/14/24 05:07 Labs: Abnormal Lab Results - Last 24 Hours (Table) 02/11/24 02/11/24 02/11/24 Range/Units 12:12 17:03 20:21 POC Glucose (mg/dL) 141 H 151 H 128 H (70-110) mg/dL 02/12/24 Range/Units 06:48 POC Glucose (mg/dL) 114 H (70-110) mg/dL Microbiology - Last 24 Hours (Table) 02/11/24 14:37 Gram Stain - Preliminary Toe - Right First
[2024-02-12 16:59] LABS: Glucose,Whole Blood 139 mg/dL (70-110)
[2024-02-12 20:23] LABS: Glucose,Whole Blood 171 mg/dL (70-110)
[2024-02-13 07:11] LABS: Glucose,Whole Blood 122 mg/dL (70-110)
[2024-02-13 09:20] LABS: HCT 45.9 % (39.6-50.0); HGB 14.1 g/dL (13.0-17.0); MCH 25.5 pg (27.0-32.0); MCHC 30.7 g/dL (32.0-37.0); Mean Platelet Volume 11.1 FL (9.5-12.2); NRBC Per 100 WBC 0 X 10*3/uL (0.00-0.01); Platelet Count 136 X 10*3/uL (140-440); RBC 5.53 X 10*6/uL (4.40-5.60); RDW 19.3 % (11.5-14.5); WBC 6.57 X 10*3/uL (4.50-10.00)
--- NOTE | 2024-02-13 09:24 | P.PN ---
Subjective Progress Note Date: 02/12/24 Principal diagnosis: Reason for follow-up is right big toe diabetic foot ulcer and cellulitis Patient is a 73-year-old male with a past medical history significant for diabetes mellitus reflux hypertension hyperlipidemia ID coronary disease and atrial fibrillation presenting to the hospital for evaluation of significant diarrhea patient also noticed to having right big toe swelling and redness has been diagnosed with infected callus status post bedside debridement by vascular surgery. On today's evaluation that is 02/12/2024,the patient denies any fever or any ch ills, patient is breathing comfortably on room air, the patient denies chest pain shortness of breath and no significant cough, patient denies abdominal pain, no nausea vomiting still having some diarrhea denies any worsening pain to the right big toe. Patient did have a creatinine 0.84 stool for C. difficile is negative Objective - Vital Signs Vital signs: Vital Signs Temp 97.4 F L 02/12/24 13:53 Pulse 71 02/12/24 13:53 Resp 18 02/12/24 13:53 BP 127/65 02/12/24 13:53 Pulse Ox 96 02/12/24 13:53 FiO2 Intake & Output 02/11/24 02/12/24 02/12/24 18:59 06:59 18:59 Intake Total 1780 Balance 1780 Intake: Intake, IV Titration 700 Amount Ampicillin-Sulbactam 3 gm 200 In Sodium Chloride 0.9% 100 ml @ 200 mls/hr IVPB Q6HR [facility] Rx#:[id number] Vancomycin 1,750 mg In 500 Sodium Chloride 0.9% 500 ml 500 ml @ 167 mls/hr IVPB Q16H [facility] Rx#: [id number] Oral 1080 Other: # Voids 5 1 # Bowel Movements 1 1 - Exam GENERAL DESCRIPTION: An elderly male lying in bed in no distress RESPIRATORY SYSTEM: Unlabored breathing , decreased breath sounds at bases HEART: S1 S2 regular rate and rhythm , ABDOMEN: Soft , no tenderness EXTREMITIES: Right big toe is currently dressed - Labs CBC & Chem 7: 02/13/24 04:52 02/12/24 04:33 Labs: Abnormal Lab Results - Last 24 Hours (Table) 02/11/24 02/11/24 02/12/24 Range/Units 17:03 20:21 06:48 POC Glucose (mg/dL) 151 H 128 H 114 H (70-110) mg/dL 02/12/24 Range/Units 12:02 POC Glucose (mg/dL) 173 H (70-110) mg/dL Microbiology - Last 24 Hours (Table) 02/11/24 14:37 Gram Stain - Preliminary Toe - Right First Assessment and Plan (1) Diabetic ulcer of right foot Current Visit: Yes Status: Acute Code(s): E11.621 - TYPE 2 DIABETES MELLITUS WITH FOOT ULCER; L97.519 - NON-PRS CHRONIC ULCER OTH PRT RIGHT FOOT W UNSP SEVERITY SNOMED Code(s): 390556675 (2) Diabetic infection of right foot Current Visit: No Status: Acute Code(s): E11.628 - TYPE 2 DIABETES MELLITUS WITH OTHER SKIN COMPLICATIONS; L08.9 - LOCAL INFECTION OF THE SKIN AND SUBCUTANEOUS TISSUE, UNSP SNOMED Code(s): 989198654 Plan: 1patient with right diabetic foot infection in this patient who did have an infected callus on the right big toe with secondary cellulitis of the right lower extremity we will need to cover for the polymicrobial darius associated with diabetic foot infection. 2patient has been evaluated by vascular surgery status post bedside debridement and cultures which are currently pending 3patient to continue with the vancomycin and Unasyn while waiting for the culture to finalize we will add Questran for symptomatic relief of his diarrhea Dictation was produced using [employer] dictation software. please excuse any grammatical, word or spelling errors. Time with Patient: Less than 30
[2024-02-13 09:50] LABS: ALT 15 U/L (10-49); AST 19 U/L (14-35); Albumin 3.8 g/dL (3.8-4.9); Albumin/Globulin Ratio 1.73 Ratio (1.60-3.17); Alkaline Phosphatase 103 U/L (41-126); BUN/Creat Ratio 12.71 Ratio (12.00-20.00); Blood Urea Nitrogen 8.9 mg/dL (9.0-27.0); Calcium 9.4 mg/dL (8.7-10.3); Carbon Dioxide 20.5 mmol/L (21.6-31.8); Chloride 107 mmol/L (96-109); Globulin 2.2 g/dL (1.6-3.3); Glucose 128 mg/dL (70-110); Magnesium 2.2 mg/dL (1.5-2.4); Potassium 3.7 mmol/L (3.5-5.5); Sodium 138 mmol/L (135-145); Total Bilirubin 0.5 mg/dL (0.3-1.2)
--- NOTE | 2024-02-13 09:52 | P.CONS ---
History of Present Illness - Reason for Consult Consult date: 02/13/24 wound care - History of Present Illness This is a 73-year-old patient being seen on [address] for nonhealing ulceration to the right great toe plantar aspect. Patient's past medical history is significant for atrial fibrillation, coronary artery disease, heart failure, CVA, diabetes, GERD, hyperlipidemia, hypertension, sleep apnea, PR, and gout. Patient has been receiving treatment for the right great toe with his toxicology teacher. However he has not been able to make his appointments due to other health concerns. Patient Underwent a bedside surgical debridement while hospitalized. Utilizing iodoform to the site. Ulceration measures approximately 2.5 x 1.2 x 0.3 granulation seen within the wound bed slough and nonviable tissue present. Review Of Systems: Constitutional: No fever, no chills, no night sweats. No weight change. No weakness, fatigue or lethargy. No daytime sleepiness. Integumentary:reports wounds, no lesions. No rash or pruritus. No unusual bruising. No change in hair or nails. Physical exam: General Appearance: Alert, cooperative, no distress, appears stated age. Skin: See HPI all other Skin color, texture, tugor normal, no rashes or lesions. Neurologic: Alert oriented x3 Assessment: 1. Nonhealing ulceration with muscle involvement without necrosis right foot 2. Diabetic foot ulcer Plan: 1. Apply absorptive silver rope, saline moist gauze, dry gauze, rolled gauze and secure with paper tape. Change Sunday. Patient stated that he would like to return to his toxicology teacher for continued treatment of the wound. If patient changes his mind would be happy to see him in the wound care center. Thank you for the consultation any questions please contact the wound care center DNP note has been reviewed and discussed with Dr. Vital and the impression and plan of care has been directed as dictated. Past Medical History Past Medical History: Atrial Fibrillation, Coronary Artery Disease (CAD), Cancer, Heart Failure, CVA/TIA, Diabetes Mellitus, GERD/Reflux, Hyperlipidemia, Hypertension, Myocardial Infarction (PR), Sleep Apnea/CPAP/BIPAP, Thyroid Disorder Additional Past Medical History / Comment(s): gout, skin ca, colon cancer with resection and chemo (2017)., c-pap machine., ulcer on side of right great toe- receives wound tx ., BPH., gall bladder pain. Last Myocardial Infarction Date:: 2006 History of Any Multi-Drug Resistant Organisms: MRSA Year Discovered:: 2022 MDRO Source:: right great toe Past Surgical History: Appendectomy, Bowel Resection, Heart Catheterization With Stent, Orthopedic Surgery Additional Past Surgical History / Comment(s): skin ca removed, lt shoulder surgery ,rt knee surgery, deviated septum surgery Past Anesthesia/Blood Transfusion Reactions: No Reported Reaction Date of Last Stent Placement:: 2006 Past Psychological History: Anxiety, Bipolar, Depression Smoking Status: Smoker, current status unknown Past Alcohol Use History: Occasional Additional Past Alcohol Use History / Comment(s): started smoking age 20- quit same year maybe total 3 packs in that time Past Drug Use History: None Reported Additional Drug Use History / Comment(s): past use of cbd gummies. - Past Family History Father Family Medical History: Asthma, Hyperlipidemia Additional Family Medical History / Comment(s): at age 61. was a heavy smoker,prostate sx a week before he not sure what took him. Mother Family Medical History: Dementia Additional Family Medical History / Comment(s): at age 75 from alzheimers Medications and Allergies Home Medications Medication Instructions Recorded Confirmed Type Potassium Chloride [Klor-Con 20] 20 meq PO DAILY 01/15/14 02/11/24 History Pravastatin Sodium [Pravachol] 40 mg PO HS 01/15/14 02/11/24 History allopurinoL [Zyloprim] 100 mg PO HS 07/28/15 02/11/24 History Sertraline HCl [Zoloft] 200 mg PO DAILY 11/05/15 02/11/24 History Rivaroxaban [Xarelto] 20 mg PO HS 07/27/17 02/11/24 History Empagliflozin [Jardiance] 25 mg PO DAILY 06/10/21 02/11/24 History Pantoprazole [Protonix] 40 mg PO BID 06/10/21 02/11/24 History glipiZIDE [Glucotrol] 20 mg PO AC-BID 08/14/22 02/11/24 History LORazepam [Ativan] 2 mg PO BID 08/11/23 02/11/24 History Fenofibrate [Lofibra] 160 mg PO DAILY 30 Days #30 tab 11/27/23 02/11/24 Rx QUEtiapine [SEROquel] 25 mg PO BID PRN 30 Days #60 tab 11/27/23 02/11/24 Rx Aspirin EC [Ecotrin Low Dose] 81 mg PO DAILY 02/11/24 02/11/24 History QUEtiapine FUMARATE [SEROquel] 50 mg PO HS 02/11/24 02/11/24 History Temazepam [Restoril] 7.5 mg PO HS 02/11/24 02/11/24 History busPIRone HCL 15 mg PO BID 02/11/24 02/11/24 History Allergies Allergy/AdvReac Type Severity Reaction Status Date / Time clopidogrel bisulfate Allergy Rash/Hives Verified 02/11/24 11:00 [From Plavix] Sulfa (Sulfonamide Allergy Rash/Hives Verified 02/11/24 11:00 Antibiotics) gabapentin AdvReac Aggression, Verified 02/11/24 11:00 anxiety, mood swings metformin AdvReac Diarrhea Verified 02/11/24 11:00 morphine AdvReac Hallucinati Verified 02/11/24 11:00 ons pregabalin [From Lyrica] AdvReac Aggression, Verified 02/11/24 11:00 anxiety, mood swings Physical Exam Vitals: Vital Signs Temp Pulse Resp BP BP Pulse Ox 02/13/24 07:11 97.7 F 71 20 143/77 94 L 02/13/24 01:08 97.4 F L 82 18 138/84 97 02/12/24 19:05 98.7 F 85 18 155/82 95 02/12/24 13:53 97.4 F L 71 18 127/65 96 Intake and Output 02/12/24 02/13/24 02/13/24 22:59 06:59 14:59 Intake Total 780 820 Balance 780 820 Intake: Intake, IV Titration 700 Amount Ampicillin-Sulbactam 3 gm 200 In Sodium Chloride 0.9% 100 ml @ 200 mls/hr IVPB Q6HR [facility] Rx#:[id number] Vancomycin 1,750 mg In 500 Sodium Chloride 0.9% 500 ml 500 ml @ 167 mls/hr IVPB Q12H [facility] Rx#: [id number] Oral 780 120 Other: # Voids 1 1 # Bowel Movements 1 Results CBC & Chem 7: 02/13/24 04:52 02/12/24 04:33 Labs: Abnormal Lab Results - Last 24 Hours (Table) 02/12/24 02/12/24 02/12/24 Range/Units 12:02 16:56 20:21 MCH (27.0-32.0) pg MCHC (32.0-37.0) g/dL RDW (11.5-14.5) % Plt Count (140-440) X 10*3/uL POC Glucose (mg/dL) 173 H 139 H 171 H (70-110) mg/dL 02/13/24 02/13/24 Range/Units 04:52 07:09 MCH 25.5 L (27.0-32.0) pg MCHC 30.7 L (32.0-37.0) g/dL RDW 19.3 H (11.5-14.5) % Plt Count 136 L (140-440) X 10*3/uL POC Glucose (mg/dL) 122 H (70-110) mg/dL Microbiology - Last 24 Hours (Table) 02/11/24 14:37 Gram Stain - Preliminary Toe - Right First Wound Culture - Preliminary Presumptive Staph aureus Enterococcus faecalis Assessment and Plan (1) Non-pressure chronic ulcer of other part of right foot with muscle involvement without evidence of necrosis Current Visit: Yes Status: Acute Code(s): L97.515 - NON-PRS CHR ULC OTH PRT R FOOT WITH MSL INVL W/O EVD OF NECR SNOMED Code(s): 81620974329810437 (2) Type 2 diabetes mellitus with foot ulcer Current Visit: Yes Status: Acute Code(s): E11.621 - TYPE 2 DIABETES MELLITUS WITH FOOT ULCER; L97.509 - NON-PRESSURE CHRONIC ULCER OTH PRT UNSP FOOT W UNSP SEVERITY SNOMED Code(s): 2196804370036
[2024-02-13 10:09] LABS: African American GFR (CKD) >90 (>60 ml/min/1.73 sqM); Non-African American GFR(CKD) 89 (>60 ml/min/1.73 sqM)
[2024-02-13] MEDS: VANCOMYCIN TROUGH DUE 1 EACH MISC MISCELLANE ONE (12:12)
[2024-02-13 12:22] LABS: Glucose,Whole Blood 183 mg/dL (70-110)
[2024-02-13] MEDS: CHOLESTYRAMINE (WITH SUGAR) 4 GM PACKET PO SCH (12:33)
--- NOTE | 2024-02-13 12:44 | P.PN ---
Subjective Progress Note Date: 02/13/24 Hospital course: Patient is a very pleasant 73-year-old male with a past medical history of CAD status post stenting, atrial fibrillation on anticoagulation with Xarelto, hypertension, hyperlipidemia, hypothyroidism, GERD, insulin-dependent diabetes mellitus, liver cirrhosis and colon cancer status post bowel resection and chemotherapy in remission since 2017. He presented to the emergency department with a chief complaint of abdominal pain, diarrhea, and concerns of infection to right great toe. Upon arrival to our facility, patient underwent evaluation in the emergency department. Vital signs upon arrival show blood pressure 151/79, heart rate 74, respiratory rate 18, temp 98.1 F, and SpO2 of 96% on room air. Labs completed and reviewed. CBC showing leukocytosis with WBC count of 10.8 and thrombocytopenia with platelet count of 126. Coagulation profile showing elevated PT of 12.6, INR 1.2, and PTT of 31.0. BMP unremarkable with the exception of elevated glucose of 163. Liver profile showing elevated alkaline phosphatase of 130 otherwise normal findings. Urinalysis positive for glucose negative for infection. X-ray right foot negative for acute osseous abnormality. CT abdomen and pelvis showing enlarged cirrhotic liver with colonic diverticulosis and enlarged prostate. Patient was started on IV antibiotics with Rocephin and admitted under our services with consultation to infectious disease. 02/11/2024 vascular surgery performed sharp excisional debridement of right great toe callus and wound culture. Physical exam: Patient seen and fully evaluated at bedside this morning. Patient was sitting up in chair at bedside. He reports pain is currently controlled but states he has been feeling severe panic and anxiety throughout the night and morning. Patient reports longstanding history of severe anxiety and panic attacks. Denies having any other complaints at this time. Vital signs reviewed and stable. General: Nontoxic, no distress and appears stated age. Derm: Skin warm and dry, normal coloration for ethnicity. Dressing in place to right foot. Head: Atraumatic, normocephalic and symmetric. Eyes: EOMs intact, no lid lag, and anicteric sclera. Mouth: no lip lesions, mucus membranes moist Cardiovascular: Irregularly irregular, positive posterior tibial pulses bilaterally, and cap refill < 2 seconds. Lungs: Respirations even, regular, and unlabored on room air. Lungs CTA bilaterally, no rhonchi, no rales, no wheezing, and no accessory muscle usage. Abdominal: soft, nontender to palpation, no guarding, no appreciable organomegaly Ext: Movement and sensation intact. No gross muscle atrophy, no edema, no contractures Neuro: Speech clear, face symmetrical and CN II-XII grossly intact with no noted focal neuro deficits Psych: Alert and oriented to person, place, time, and situation. Patient pleasant and cooperative.. Assessment and Plan of Care: Diabetic wound right great toe with surrounding cellulitis of right lower e xtremity -Vascular surgery following and performed sharp excisional debridement of right great toe callus and wound culture on 02/11/2024. -Infectious disease following, reviewed documentation in chart. -Preliminary results of wound culture showing presumptive Staph aureus and Ent erococcus faecalis, awaiting final culture and sensitivity report. -Continue supportive care and pain management. -Continue IV antibiotics with Unasyn 3 g every 6 hours and vancomycin 1750 mg every 12 hours with close monitoring of renal function and vancomycin trough to monitor for any signs of vancomycin associated renal toxicity. Vancomycin trough currently therapeutic at 16.4. Diabetes mellitus with hyperglycemia. -Continue Levemir 15 units nightly glycemic protocol with NovoLog sliding scale to maintain tight glycemic control throughout hospitalization. Abdominal pain with diarrhea -Likely secondary to adverse effects of recent antibiotic. Provide supportive care. -CT abdomen and pelvis did reveal mild diverticulosis but negative for diverticulitis. -C. difficile negative. Severe Anxiety with depression. -Patient follows with psychiatry at [place]. -Patient to continue daily medication regimen with BuSpar 15 mg Seroquel 50 mg nightly, Restoril 7.5 mg nightly, Ativan 2 mg twice daily, and Seroquel 25 mg twice daily as needed for anxiety/agitation. Chronic atrial fibrillation with a controlled ventricular rate. -Continue daily medication regimen with Xarelto 20 mg nightly. Hypertension. -Continue daily medication regimen with amlodipine 10 mg daily and lisinopril 10 mg daily. Hyperlipidemia. -Continue daily medication regimen with pravastatin 40 mg nightly and fenofibrate 160 mg daily. History of CAD status post stenting. -Continue daily medication regimen with aspirin 81 mg daily, amlodipine 10 mg daily, lisinopril 10 mg daily, pravastatin 40 mg nightly, Xarelto 20 mg nightly. Thrombocytopenia, chronic and stable GERD. -Continue home GI prophylaxis with Protonix 40 mg p.o. twice daily and Pepcid 20 mg daily. Chronic cervical neck and back pain -Patient is scheduled to undergo cervical surgery with Dr. Ayers next week. Data and imaging reviewed Vital signs reviewed. Blood pressure 143/77, heart rate 71, respiratory rate 20, temp 97.7 F, and SpO2 of 94% on room air. Labs reviewed. CBC showing mild thrombocytopenia with platelet count of 136 otherwise normal findings. BMP showing mild hypocarbia with bicarb of 20.5 o therwise normal findings. Blood glucose 128. Magnesium 2.2. Liver profile unremarkable. Vancomycin trough therapeutic at 16.4. CODE STATUS: Full code: DVT prophylaxis: Xaretlo Anticipated discharge date: Pending clinical course, need to await final culture and sensitivity report. Anticipated discharge place: Home Patient was seen independently by Nurse Pracitioner. This document was prepared using [employer] dictation software. Please allow for errors in motocross racer, while rare they do occur. I reviewed the documentation as provided by the REGAN above, who is the original author of this note. I agree with the documented assessment and plan, with the following changes: none Objective - Vital Signs Vital signs: Vital Signs Temp 97.7 F 02/13/24 07:11 Pulse 71 02/13/24 07:11 Resp 20 02/13/24 07:11 BP 143/77 02/13/24 07:11 Pulse Ox 94 L 02/13/24 07:11 FiO2 Intake & Output 02/12/24 02/13/24 02/13/24 18:59 06:59 18:59 Intake Total 1160 820 Balance 1160 820 Intake: Intake, IV Titration 700 Amount Ampicillin-Sulbactam 3 gm 200 In Sodium Chloride 0.9% 100 ml @ 200 mls/hr IVPB Q6HR [facility] Rx#:[id number] Vancomycin 1,750 mg In 500 Sodium Chloride 0.9% 500 ml 500 ml @ 167 mls/hr IVPB Q12H [facility] Rx#: [id number] Oral 1160 120 Other: # Voids 3 1 # Bowel Movements 3 1 - Labs CBC & Chem 7: 02/14/24 05:07 02/14/24 05:07 Labs: Abnormal Lab Results - Last 24 Hours (Table) 02/12/24 02/12/24 02/12/24 Range/Units 12:02 16:56 20:21 POC Glucose (mg/dL) 173 H 139 H 171 H (70-110) mg/dL 02/13/24 Range/Units 07:09 POC Glucose (mg/dL) 122 H (70-110) mg/dL Microbiology - Last 24 Hours (Table) 02/11/24 14:37 Gram Stain - Preliminary Toe - Right First Wound Culture - Preliminary Presumptive Staph aureus Enterococcus faecalis
[2024-02-13] MEDS ORDERED: ALPRAZolam 0.5 MG TAB PO PRN (16:29)
[2024-02-13 17:04] LABS: Glucose,Whole Blood 154 mg/dL (70-110)
[2024-02-13 20:33] LABS: Glucose,Whole Blood 143 mg/dL (70-110)
[2024-02-14 07:02] LABS: African American GFR (CKD) >90 (>60 ml/min/1.73 sqM); Anion Gap 5 mmol/L; Blood Urea Nitrogen 8 mg/dL (9-20); Calcium 9.6 mg/dL (8.4-10.2); Carbon Dioxide 20 mmol/L (22-30); Chloride 111 mmol/L (98-107); Glucose 132 mg/dL (74-99); Non-African American GFR(CKD) >90 (>60 ml/min/1.73 sqM); Potassium 3.8 mmol/L (3.5-5.1); Sodium 136 mmol/L (137-145)
[2024-02-14 07:09] LABS: Glucose,Whole Blood 139 mg/dL (70-110)
[2024-02-14 08:50] LABS: HCT 45.2 % (39.6-50.0); HGB 13.9 g/dL (13.0-17.0); MCH 25.6 pg (27.0-32.0); MCHC 30.8 g/dL (32.0-37.0); MCV 83.1 FL (80.0-97.0); Mean Platelet Volume 10.1 FL (9.5-12.2); NRBC Per 100 WBC 0 X 10*3/uL (0.00-0.01); Platelet Count 130 X 10*3/uL (140-440); RBC 5.44 X 10*6/uL (4.40-5.60); RDW 19.3 % (11.5-14.5); WBC 6.89 X 10*3/uL (4.50-10.00)
[2024-02-14 11:50] LABS: Glucose,Whole Blood 139 mg/dL (70-110)
--- NOTE | 2024-02-14 13:52 | P.DS ---
Providers Date of admission: 02/11/24 06:48 Expected date of discharge: 02/14/24 Attending physician: Brandan Mcgee MD Consults: 02/11/24 06:37 Consult Physician Urgent Consulting Provider: Ramon Wilkerson Consult Reason/Comments: cellulitis, RLE Do you want consulting provider notified?: Yes Primary care physician: [facility] Hospital Course: 73-year-old male with a PMH of CAD status post stenting, AFib on Xarelto, HTN, HLD, hypothyroidism, GERD, insulin-dependent diabetes mellitus, liver cirrhosis and colon cancer status post bowel resection and chemotherapy in remission since 2017. He presented to the ED with a chief complaint of abdominal pain, diarrhea, and concerns of infection to right great toe. Patient underwent evaluation in the ED. Vital signs showed BP 151/79, HR 74, RR 18, T 98.1 F, and SpO2 of 96% on RA. CBC showed WBC count of 10.8 and Plt of 126. Coag profile showing elevated PT of 12.6, INR 1.2, and PTT of 31.0. BMP showed glucose of 163. Liver profile showed alkaline phosphatase of 130. UA negative nitrite or LE. X-ray right foot negative for acute osseous abnormality. CT AP showing enlarged cirrhotic liver with colonic diverticulosis and enlarged prostate. Patient was started on Rocephin and admitted under our services with consultation to infectious disease. 02/11/2024 vascular surgery performed sharp excisional debridement of right great toe callus and wound culture. Wound culture grew staph aureus and enterococcus faecalis. Evaluated by PT and OT recommending SNF but patient preferring to go home. 02/13 Patient was seen and examined. No complaints. Wanting to go home. Discussed with Dr. Wilkerson, OK to go home with Augmentin for 2 weeks. Follow up with PCP within 1-2 days of discharge and Dr. Wilkerson within 1 week of discharge. General: non toxic, no distress, appears at stated age Derm: warm, dry, R foot dressing c/d/i Head: atraumatic, normocephalic, symmetric Eyes: EOMI, no lid lag, anicteric sclera Mouth: no lip lesion, mucus membranes moist Cardiovascular: S1S2 irreg, no murmur Lungs: Clear to auscultation bilaterally, no rhonchi, no rales , no accessory muscle use Ext: no gross muscle atrophy, no edema, no contractures Neuro: no focal neuro deficits Psych: Alert, oriented, appropriate affect Discharge Diagnosis: Diabetic wound right great toe with surrounding cellulitis of right lower extremity Diabetes mellitus with hyperglycemia. Abdominal pain with diarrhea Severe Anxiety with depression Chronic atrial fibrillation with a controlled ventricular rate. Hypertension. Hyperlipidemia. History of CAD status post stenting. Thrombocytopenia, chronic and stable GERD Chronic cervical neck and back pain This complex discharge took 35 minutes to complete. Patient Condition at Discharge: Stable Plan - Discharge Summary Discharge Rx Participant: Yes New Discharge Prescriptions: New amLODIPine [Norvasc] 10 mg PO DAILY #30 tab Amoxic-Pot Clav 875-125Mg [Augmentin 875-125] 1 tab PO Q12HR 14 Days #28 tab Amoxic-Pot Clav 875-125Mg [Augmentin 875-125] 1 tab PO Q12HR 14 Days #28 tab lisinopriL [Zestril] 10 mg PO DAILY #30 tab Continue Pravastatin Sodium [Pravachol] 40 mg PO HS Potassium Chloride [Klor-Con 20] 20 meq PO DAILY allopurinoL [Zyloprim] 100 mg PO HS Sertraline HCl [Zoloft] 200 mg PO DAILY Rivaroxaban [Xarelto] 20 mg PO HS QUEtiapine [SEROquel] 25 mg PO BID PRN 30 Days #60 tab PRN Reason: anxiety/agitation Temazepam [Restoril] 7.5 mg PO HS Aspirin EC [Ecotrin Low Dose] 81 mg PO DAILY Empagliflozin [Jardiance] 25 mg PO DAILY Pantoprazole [Protonix] 40 mg PO BID glipiZIDE [Glucotrol] 20 mg PO AC-BID LORazepam [Ativan] 2 mg PO BID Fenofibrate [Lofibra] 160 mg PO DAILY 30 Days #30 tab QUEtiapine FUMARATE [SEROquel] 50 mg PO HS busPIRone HCL 15 mg PO BID Discharge Medication List Potassium Chloride [Klor-Con 20] 20 meq PO DAILY 01/15/14 [History] Pravastatin Sodium [Pravachol] 40 mg PO HS 01/15/14 [History] allopurinoL [Zyloprim] 100 mg PO HS 07/28/15 [History] Sertraline HCl [Zoloft] 200 mg PO DAILY 11/05/15 [History] Rivaroxaban [Xarelto] 20 mg PO HS 07/27/17 [History] Empagliflozin [Jardiance] 25 mg PO DAILY 06/10/21 [History] Pantoprazole [Protonix] 40 mg PO BID 06/10/21 [History] glipiZIDE [Glucotrol] 20 mg PO AC-BID 08/14/22 [History] LORazepam [Ativan] 2 mg PO BID 08/11/23 [History] Fenofibrate [Lofibra] 160 mg PO DAILY 30 Days #30 tab 11/27/23 [Rx] QUEtiapine [SEROquel] 25 mg PO BID PRN 30 Days #60 tab 11/27/23 [Rx] Aspirin EC [Ecotrin Low Dose] 81 mg PO DAILY 02/11/24 [History] QUEtiapine FUMARATE [SEROquel] 50 mg PO HS 02/11/24 [History] Temazepam [Restoril] 7.5 mg PO HS 02/11/24 [History] busPIRone HCL 15 mg PO BID 02/11/24 [History] Amoxic-Pot Clav 875-125Mg [Augmentin 875-125] 1 tab PO Q12HR 14 Days #28 tab 02/14/24 [Rx] Amoxic-Pot Clav 875-125Mg [Augmentin 875-125] 1 tab PO Q12HR 14 Days #28 tab 02/14/24 [Rx] amLODIPine [Norvasc] 10 mg PO DAILY #30 tab 02/14/24 [Rx] lisinopriL [Zestril] 10 mg PO DAILY #30 tab 02/14/24 [Rx] Follow up Appointment(s)/Referral(s): Krysta Arellano [NON-STAFF] - 1 Week Juan Shields DO [Primary Care Provider] - 1-2 days Ramon Wilkerson MD [STAFF PHYSICIAN] - 1 Week Activity/Diet/Wound Care/Special Instructions: Dry Aquacel silver dressing to the right big toe change every 48 hours Discharge Disposition: HOME SELF-CARE
--- NOTE | 2024-02-14 14:30 | P.PN ---
Subjective Progress Note Date: 02/13/24 Principal diagnosis: Reason for follow-up is right big toe diabetic foot ulcer and cellulitis Patient is a 73-year-old male with a past medical history significant for diabetes mellitus reflux hypertension hyperlipidemia IN coronary disease and atrial fibrillation presenting to the hospital for evaluation of significant diarrhea patient also noticed to having right big toe swelling and redness has been diagnosed with infected callus status post bedside debridement by vascular surgery. On today's evaluation that is 02/13/2024,the patient remains to be afebrile, pa tient is on room air not requiring supplemental oxygen and denies any shortness of breath no chest pain or cough.Patient denies having any nausea or vomiting, no abdominal pain and no diarrhea has been reported denies pain to the right big toe. Patient white count 6.57, creatinine 0.82, local culture currently growing Enterococcus and Staph aureus sensitivities pending Objective - Vital Signs Vital signs: Vital Signs Temp 97.5 F L 02/13/24 13:42 Pulse 76 02/13/24 13:42 Resp 18 02/13/24 13:42 BP 148/81 02/13/24 13:42 Pulse Ox 99 02/13/24 13:42 FiO2 Intake & Output 02/12/24 02/13/24 02/13/24 18:59 06:59 18:59 Intake Total 1160 820 Output Total 200 Balance 1160 820 -200 Intake: Intake, IV Titration 700 Amount Ampicillin-Sulbactam 3 gm 200 In Sodium Chloride 0.9% 100 ml @ 200 mls/hr IVPB Q6HR [facility] Rx#:[id number] Vancomycin 1,750 mg In 500 Sodium Chloride 0.9% 500 ml 500 ml @ 167 mls/hr IVPB Q12H [facility] Rx#: [id number] Oral 1160 120 Output: Urine 200 Other: # Voids 3 1 # Bowel Movements 3 1 1 - Exam GENERAL DESCRIPTION: An elderly male lying in bed in no distress RESPIRATORY SYSTEM: Unlabored breathing , decreased breath sounds at bases HEART: S1 S2 regular rate and rhythm , ABDOMEN: Soft , no tenderness EXTREMITIES: Right big toe is currently dressed - Labs CBC & Chem 7: 02/14/24 05:07 02/14/24 05:07 Labs: Abnormal Lab Results - Last 24 Hours (Table) 02/12/24 02/12/24 02/13/24 Range/Units 16:56 20:21 04:52 MCH 25.5 L (27.0-32.0) pg MCHC 30.7 L (32.0-37.0) g/dL RDW 19.3 H (11.5-14.5) % Plt Count 136 L (140-440) X 10*3/uL Carbon Dioxide (21.6-31.8) mmol/L BUN (9.0-27.0) mg/dL Glucose (70-110) mg/dL POC Glucose (mg/dL) 139 H 171 H (70-110) mg/dL Total Protein (6.2-8.2) g/dL 02/13/24 02/13/24 02/13/24 Range/Units 04:52 07:09 12:21 MCH (27.0-32.0) pg MCHC (32.0-37.0) g/dL RDW (11.5-14.5) % Plt Count (140-440) X 10*3/uL Carbon Dioxide 20.5 L (21.6-31.8) mmol/L BUN 8.9 L (9.0-27.0) mg/dL Glucose 128 H (70-110) mg/dL POC Glucose (mg/dL) 122 H 183 H (70-110) mg/dL Total Protein 6.0 L (6.2-8.2) g/dL Microbiology - Last 24 Hours (Table) 02/11/24 14:37 Gram Stain - Preliminary Toe - Right First Wound Culture - Preliminary Presumptive Staph aureus Enterococcus faecalis Assessment and Plan (1) Diabetic ulcer of right foot Current Visit: Yes Status: Acute Code(s): E11.621 - TYPE 2 DIABETES MELLITUS WITH FOOT ULCER; L97.519 - NON-PRS CHRONIC ULCER OTH PRT RIGHT FOOT W UNSP SEVERITY SNOMED Code(s): 158272733 (2) Diabetic infection of right foot Current Visit: No Status: Acute Code(s): E11.628 - TYPE 2 DIABETES MELLITUS WITH OTHER SKIN COMPLICATIONS; L08.9 - LOCAL INFECTION OF THE SKIN AND SUBCUTANEOUS TISSUE, UNSP SNOMED Code(s): 220558735 Plan: 1patient with right diabetic foot infection in this patient who did have an infected callus on the right big toe with secondary cellulitis of the right lower extremity we will need to cover for the polymicrobial darius associated with diabetic foot infection. 2patient has been evaluated by vascular surgery status post bedside debridement and cultures which are currently growing Staph aureus Enterococcus sensitivities pending 3patient to continue with the vancomycin and Unasyn while waiting for the cult ure to finalize to determine his discharge antibiotics Dictation was produced using [employer] dictation software. please excuse any grammatical, word or spelling errors. Time with Patient: Less than 30
--- NOTE | 2024-02-14 14:31 | P.PN ---
Subjective Progress Note Date: 02/14/24 Principal diagnosis: Reason for follow-up is right big toe diabetic foot ulcer and cellulitis Patient is a 73-year-old male with a past medical history significant for diabetes mellitus reflux hypertension hyperlipidemia MS coronary disease and atrial fibrillation presenting to the hospital for evaluation of significant diarrhea patient also noticed to having right big toe swelling and redness has been diagnosed with infected callus status post bedside debridement by vascular surgery. On today's evaluation that is 02/14/2024, the patient continues to be afebrile, the patient is on room air and breathing comfortably, the Pt denies having any chest pain or cough, the patient denies having any abdominal pain no vomiting or any diarrhea, the patient has pain to the right big toe feeling better wants to go home. Patient white count 6.89, creatinine 0.65 culture has been finalized with MSSA Enterococcus faecalis Objective - Vital Signs Vital signs: Vital Signs Temp 97.8 F 02/14/24 07:10 Pulse 64 02/14/24 07:10 Resp 19 02/14/24 07:10 BP 150/89 02/14/24 07:10 Pulse Ox 97 02/14/24 07:10 FiO2 Intake & Output 02/13/24 02/14/24 02/14/24 18:59 06:59 18:59 Intake Total 540 Output Total 200 800 Balance 340 -800 Intake: Oral 540 Output: Urine 200 800 Other: Voiding Method Toilet Toilet Toilet Urinal Urinal Urinal # Voids 2 # Bowel Movements 1 1 - Exam GENERAL DESCRIPTION: An elderly male lying in bed in no distress RESPIRATORY SYSTEM: Unlabored breathing , decreased breath sounds at bases HEART: S1 S2 regular rate and rhythm , ABDOMEN: Soft , no tenderness EXTREMITIES: Right big toe wound on the plantar aspect looks clean surrounding swelling redness improved no drainage - Labs CBC & Chem 7: 02/14/24 05:07 02/14/24 05:07 Labs: Abnormal Lab Results - Last 24 Hours (Table) 02/13/24 02/13/24 02/13/24 Range/Units 12:21 17:02 20:30 MCH (27.0-32.0) pg MCHC (32.0-37.0) g/dL RDW (11.5-14.5) % Plt Count (140-440) X 10*3/uL Sodium (137-145) mmol/L Chloride (98-107) mmol/L Carbon Dioxide (22-30) mmol/L BUN (9-20) mg/dL Creatinine (0.66-1.25) mg/dL Glucose (74-99) mg/dL POC Glucose (mg/dL) 183 H 154 H 143 H (70-110) mg/dL 02/14/24 02/14/24 02/14/24 Range/Units 05:07 05:07 07:08 MCH 25.6 L (27.0-32.0) pg MCHC 30.8 L (32.0-37.0) g/dL RDW 19.3 H (11.5-14.5) % Plt Count 130 L (140-440) X 10*3/uL Sodium 136 L (137-145) mmol/L Chloride 111 H (98-107) mmol/L Carbon Dioxide 20 L (22-30) mmol/L BUN 8 L (9-20) mg/dL Creatinine 0.65 L (0.66-1.25) mg/dL Glucose 132 H (74-99) mg/dL POC Glucose (mg/dL) 139 H (70-110) mg/dL Microbiology - Last 24 Hours (Table) 02/11/24 14:37 Gram Stain - Final Toe - Right First Wound Culture - Final Staphylococcus aureus Enterococcus faecalis Assessment and Plan (1) Diabetic ulcer of right foot Current Visit: Yes Status: Acute Code(s): E11.621 - TYPE 2 DIABETES MELLITUS WITH FOOT ULCER; L97.519 - NON-PRS CHRONIC ULCER OTH PRT RIGHT FOOT W UNSP SEVERITY SNOMED Code(s): 912898980 (2) Diabetic infection of right foot Current Visit: No Status: Acute Code(s): E11.628 - TYPE 2 DIABETES MELLITUS WITH OTHER SKIN COMPLICATIONS; L08.9 - LOCAL INFECTION OF THE SKIN AND SUBCUTANEOUS TISSUE, UNSP SNOMED Code(s): 430899586 Plan: 1patient with right diabetic foot infection in this patient who did have an infected callus on the right big toe with secondary cellulitis of the right lower extremity we will need to cover for the polymicrobial darius associated with diabetic foot infection. 2patient has been evaluated by vascular surgery status post bedside debridement and cultures which are currently growing MSSA Enterococcus faecalis 3patient will be able to finish therapy with oral Augmentin x 2 weeks on discharge discussed with admitting physician continue Unasyn while inpatient and discontinue vancomycin Dictation was produced using [employer] dictation software. please excuse any grammatical, word or spelling errors. Time with Patient: Less than 30
[2024-02-14 14:37] VITALS: BP 167/92; PULSE 86; RESP 16; TEMP 97.4
--- NOTE | 2024-02-28 12:30 | CDI ---
Documentation Clarification Form Date: 02/28/2024 12:08:29 PM From: Dee Grant Phone: Admit Date: 02/11/2024 06:48:00 AM Patient Name: Geovany Patel Visit Number: [id number] Discharge Date: 02/14/2024 04:12:00 PM ATTENTION: The Clinical Documentation Specialists (CDI) and [facility] Coding Staff appreciate your assistance in clarifying documentation. Please respond to the clarification below the line at the bottom and electronically sign. The CDI & [facility] Coding staff will review the response and follow-up if needed. Please note: Queries are made part of the Legal Health Record. If you have any questions, please contact the author of this message via ITS. Doctor/Provider: Farrukh Almaguer debridement is documented of the right great toe. Additional clarification regarding the procedure is requested. History/Risk Factors: 73yo M, NIDMII ulcerright greattoe with surrounding cellulitisof RLE, hyperglycemia, colitis, dementia w anxiety with depression, chronic A Fib, HTN, HLD, CAD, thrombocytopenia, GERD, chronic cervical neck andback pain Clinical Indicators: Cultures which are currently growingMSSAEnterococcus faecalis Treatment: Utilizing a surgical scalpel this was shaved down. This revealed acavitywhich went completelydebridedmeasured 3 cm x 1 cm x 4 mm.Patient will be able to finishtherapywith oral Augmentin x 2 weeks on discharge discussed with admitting physician continue Unasyn while inpatient and discontinue vancomycin. Please clarify the depth of ulcer and excisional debridement: Stage of Ulceration [ ] Skin breakdown only [ ] Fat layer exposed [ ] Muscle involvement without evidence of necrosis [ ] Other specified [ ] Unable to determine Depth of excisional debridement [ ] Skin [ ] Subcutaneous tissue and fascia [ ] Bone [ ] Other; please specify [ ] Unable to determine Five elements required for accurate and compliant documentation of a debridement: Technique used (e.g., excisional, excised, cutting, brushing, jet lavage etc.) Instrument(s) used (e.g., scalpel, curette, etc.) Nature of the tissue removed (e.g., necrotic, devitalized tissues, non-viable tissue, etc.) Appearance and size of the wound (e.g., down to fresh bleeding tissue, 7cm x 10cm, etc.) Depth of the debridement* (e.g., skin, subcutaneous tissue, fascia, muscle, bone, etc.) (Template Last Revised: July 2020) MTDD
--- NOTE | 2024-02-28 12:38 | CDI ---
Documentation Clarification Form Date: 02/28/2024 12:32:31 PM From: Dee Grant Phone: Admit Date: 02/11/2024 06:48:00 AM Patient Name: Geovany Patel Visit Number: [id number] Discharge Date: 02/14/2024 04:12:00 PM ATTENTION: The Clinical Documentation Specialists (CDI) and [facility] Coding Staff appreciate your assistance in clarifying documentation. Please respond to the clarification below the line at the bottom and electronically sign. The CDI & [facility] Coding staff will review the response and follow-up if needed. Please note: Queries are made part of the Legal Health Record. If you have any questions, please contact the author of this message via ITS. Doctor/Provider: Eva Bender Cellulitis is documented per H&P and Progress Notes. Additional clarification regarding the type of cellulitis is requested. History/risk factors: 73yo M, NIDMII ulcer right great toe w cellulitis of RLE, hyperglycemia, colitis, dementia w anxiety with depression, chronic A Fib, HTN, HLD, CAD, thrombocytopenia, GERD, chronic cervical neck and back pain Clinical Indicators: Cultures which are currently growing MSSA Enterococcus faecalis Treatment: Patient will be able to finish therapy with oral Augmentin x 2 weeks on discharge discussed with admitting physician continue Unasyn while inpatient and discontinue vancomycin. Please clarify the type of cellulitis, if known: [ x ] Cellulitis is due to DMII [ ] Cellulitis is not due to DMII [ ] Other, please specify: [ ] Unable to determine (Template Last Revised: May 2022) MTDD
--- NOTE | 2024-02-29 19:00 | CDI ---
Documentation Clarification Form Date: 02/29/2024 06:55:20 PM From: Dee Grant Phone: Admit Date: 02/11/2024 06:48:00 AM Patient Name: Geovany Patel Visit Number: [id number] Discharge Date: 02/14/2024 04:12:00 PM ATTENTION: The Clinical Documentation Specialists (CDI) and [facility] Coding Staff appreciate your assistance in clarifying documentation. Please respond to the clarification below the line at the bottom and electronically sign. The CDI & [facility] Coding staff will review the response and follow-up if needed. Please note: Queries are made part of the Legal Health Record. If you have any questions, please contact the author of this message via ITS. Doctor/Provider:Farrukh Proctor Thank you for acknowledging the previous query; however, it lack a response. Adebridementis documented of the right great toe. Additional clarification regarding the procedure is requested. History/Risk Factors: 73yo M, HTN,HLD,CAD,thrombocytopenia,GERD, NIDMIIulcerright greattoe with surrounding cellulitisof RLE,hyperglycemia,colitis,dementiawanxiety with depression, chronic A Fib,chronic cervical neck andback pain Clinical Indicators: Cultures which are currently growingMSSAEnterococcus faecalis Treatment: Utilizing a surgical scalpel this was shaved down. This revealed acavitywhich went completelydebridedmeasured 3 cm x 1 cm x 4 mm. Patient will be able to finishtherapywith oral Augmentin x 2 weeks on discharge discussed with admitting physician continue Unasyn while inpatient and discontinue vancomycin. Please clarify the depth ofulcerandexcisional debridement: Stage ofUlceration [ ] Skinbreakdownonly [ ] Fat layer exposed [ ] Muscle involvementwithout evidence ofnecrosis [ ] Other specified [ ] Unable to determine Depth ofexcisional debridement [ ] Skin [ ] Subcutaneous tissue and fascia [ ] Bone [ ] Other; please specify [ x] Unable to determine Five elements required for accurate and compliant documentation of a debridement: Technique used (e.g.,excisional,excised, cutting, brushing, jetlavageetc.) Instrument(s) used (e.g., scalpel, curette, etc.) Nature of the tissueremoved(e.g.,necrotic, devitalized tissues, non-viable tissue, etc.) Appearance and size of thewound(e.g., down to freshbleedingtissue, 7cm x 10cm, etc.) Depth of thedebridement* (e.g., skin, subcutaneous tissue, fascia, muscle, bone, etc.) (Template LastRevised: July 2020) MTDD
== END 2024-02-14 16:12 | disposition home or self-care (01) | DRG 638 ==
LOC: EC 01:51 → 5NMEDONC 06:48
PROVIDERS: ADMIT Internal Medicine; ATTEND Internal Medicine
PROC: 0HBMXZZ Excision of Right Foot Skin, External Approach (ICD-10-PCS; principal; 2024-02-11)
PROC: 0J9Q0ZZ Drainage of Right Foot Subcutaneous Tissue and Fascia, Open Approach (ICD-10-PCS; 2024-02-11)
DX: E11.621 Type 2 diabetes mellitus with foot ulcer (principal); F03.93 Unspecified dementia, unspecified severity, with mood disturbance; L97.518 Non-pressure chronic ulcer of other part of right foot with other specified severity; I50.32 Chronic diastolic (congestive) heart failure; I48.20 Chronic atrial fibrillation, unspecified; L03.115 Cellulitis of right lower limb; F03.94 Unspecified dementia, unspecified severity, with anxiety; D69.6 Thrombocytopenia, unspecified; I11.0 Hypertensive heart disease with heart failure; E11.42 Type 2 diabetes mellitus with diabetic polyneuropathy; E11.628 Type 2 diabetes mellitus with other skin complications; K74.60 Unspecified cirrhosis of liver; E11.65 Type 2 diabetes mellitus with hyperglycemia; F31.9 Bipolar disorder, unspecified; E03.9 Hypothyroidism, unspecified; B95.2 Enterococcus as the cause of diseases classified elsewhere; Z79.01 Long term (current) use of anticoagulants; L03.031 Cellulitis of right toe; B95.61 Methicillin susceptible Staphylococcus aureus infection as the cause of diseases classified elsewhere; I25.10 Atherosclerotic heart disease of native coronary artery without angina pectoris; K57.30 Diverticulosis of large intestine without perforation or abscess without bleeding; N40.0 Benign prostatic hyperplasia without lower urinary tract symptoms; L84 Corns and callosities; K52.9 Noninfective gastroenteritis and colitis, unspecified; E78.5 Hyperlipidemia, unspecified; K21.9 Gastro-esophageal reflux disease without esophagitis; Z86.14 Personal history of Methicillin resistant Staphylococcus aureus infection; Z87.891 Personal history of nicotine dependence; Z95.5 Presence of coronary angioplasty implant and graft; Z86.73 Personal history of transient ischemic attack (TIA), and cerebral infarction without residual deficits; Z79.82 Long term (current) use of aspirin; Z79.84 Long term (current) use of oral hypoglycemic drugs; Z79.899 Other long term (current) drug therapy; I25.2 Old myocardial infarction; Z85.038 Personal history of other malignant neoplasm of large intestine; Z92.21 Personal history of antineoplastic chemotherapy; Z90.49 Acquired absence of other specified parts of digestive tract; Z85.828 Personal history of other malignant neoplasm of skin
CPT/HCPCS: 36415; 74176; 80048; 80053; 80202; 81003; 82150; 82565; 83690; 83735; 85025; 85027; 85610; 85730; 87070; 87077; 87186; 87205; 87324; 96365; 96366; 99285

== ENCOUNTER 2024-03-14 07:20 | Day surgery (SDC) | payer MEDICARE, OTHER ==
[2024-03-14 07:32] LABS: Glucose,Whole Blood 178 mg/dL (70-110)
[2024-03-14 07:35] VITALS: BP 132/64; PULSE 73; RESP 16; TEMP 98.2
--- NOTE | 2024-03-14 09:47 | XR ---
EXAMINATION TYPE: XR chest 1V portable DATE OF EXAM: 03/14/2024 Comparison: 08/06/2023 Clinical History: 73-year-old male POST PICC LINE - VERIFY PLACEMENT Findings: Heart mildly enlarged. Hyperinflation. Mild patchy density in the right base is increased. Left PICC tip obscured, not clearly seen beyond the lower SVC level. No pleural effusion. Impression: 1. Left PICC tip obscured, not clearly seen beyond the lower SVC level. 2. Mild cardiomegaly and COPD. 3. Some patchy opacity at the right base has developed, likely atelectasis. [facility], , 03/14/2024 9:44 AM
--- NOTE | 2024-03-14 11:17 | XR ---
EXAMINATION TYPE: XR chest 2V DATE OF EXAM: 03/14/2024 COMPARISON: Earlier today HISTORY: 73-year-old male PICC line placement TECHNIQUE: Frontal and lateral views FINDINGS: Heart mildly enlarged. Hyperinflation. Mild interstitial prominence. Improved aeration of the right b ase. Left PICC tip at the cavoatrial junction. No consolidation or pleural effusion. IMPRESSION: 1. Left PICC tip satisfactory at the cavoatrial junction. 2. Mild cardiomegaly and COPD. No acute process seen. [facility], , 03/14/2024 11:14 AM
== END 2024-03-14 11:28 | disposition home or self-care (01) ==
LOC: CATHCVL 07:20
PROVIDERS: ATTEND Physician Assistant Medical
DX: I51.7 Cardiomegaly (principal); J44.9 Chronic obstructive pulmonary disease, unspecified; Z86.31 Personal history of diabetic foot ulcer
CPT/HCPCS: 36573; 71045; 71046; C1751

== ENCOUNTER 2024-03-22 14:12 | Emergency (ER) | payer OTHER, MEDICARE ==
[2024-03-22 15:43] LABS: Anisocytosis Slight; Basophils % (A) 1 %; Eosinophils # (A) 0.4 k/uL (0-0.7); Eosinophils % (A) 6 %; HCT 45.6 % (39.0-53.0); HGB 14.2 gm/dL (13.0-17.5); Hypochromasia Slight; Lymphocytes # (A) 1.3 k/uL (1.0-4.8); Lymphocytes % (A) 20 %; MCH 26.2 pg (25.0-35.0); MCHC 31.1 g/dL (31.0-37.0); MCV 84.1 fL (80.0-100.0); Mean Platelet Volume 8.6; Monocytes # (A) 0.3 k/uL (0-1.0); Monocytes % (A) 5 %; Neutrophils # (A) 4.3 k/uL (1.3-7.7); Neutrophils % (A) 66 %; Platelet Count 132 k/uL (150-450); Poikilocytosis Slight; RBC 5.42 m/uL (4.30-5.90); RDW 17.3 % (11.5-15.5); WBC 6.4 k/uL (3.8-10.6)
--- NOTE | 2024-03-22 15:54 | XR ---
EXAMINATION TYPE: XR KUB DATE OF EXAM: 03/22/2024 3:28 PM COMPARISON: None CLINICAL INDICATION: Male, 73 years old with history of abdominal pain; [facility] TECHNIQUE: One radiographic view of the abdomen was obtained. FINDINGS: The bowel gas pattern is nonspecific without dilated loops of small or large bowel. . Fecal material and gas are demonstrated throughout the colon and rectum. There is no evidence for organomegaly or pneumoperitoneum. The osseous structures are intact. No ab normal calcifications are present. IMPRESSION: Nonspecific bowel gas pattern without radiographic evidence for acute process. [facility], , 03/22/2024 3:52 PM
[2024-03-22 16:25] LABS: ALT 24 U/L (4-49); AST 34 U/L (17-59); African American GFR (CKD) >90 (>60 ml/min/1.73 sqM); Albumin 3.9 g/dL (3.5-5.0); Alkaline Phosphatase 94 U/L (38-126); Amylase 87 U/L (30-110); Anion Gap 7 mmol/L; Blood Urea Nitrogen 18 mg/dL (9-20); Calcium 9.6 mg/dL (8.4-10.2); Carbon Dioxide 20 mmol/L (22-30); Chloride 109 mmol/L (98-107); Glucose 178 mg/dL (74-99); Lipase 137 U/L (23-300); Non-African American GFR(CKD) >90 (>60 ml/min/1.73 sqM); Potassium 4.3 mmol/L (3.5-5.1); Sodium 136 mmol/L (137-145); Total Bilirubin 0.7 mg/dL (0.2-1.3); Total Protein 6.6 g/dL (6.3-8.2)
[2024-03-22 17:31] LABS: Appearance,Urine Clear (Clear); Bilirubin,Urine Negative (Negative); Blood,Urine Negative (Negative); Color,Urine Colorless; Glucose,Urine (UA) 4+ (Negative); Ketones,Urine Negative (Negative); Leukocyte Esterase,Urine Negative (Negative); Nitrite,Urine Negative (Negative); Protein,Urine Negative (Negative); Specific Gravity,Urine 1.012 (1.001-1.035); Urobilinogen,Urine <2.0 mg/dL (<2.0)
[2024-03-22] MEDS: SODIUM CHLORIDE 0.9% 1,000 ML IV ONE (18:18)
[2024-03-22] MEDS: ACETAMINOPHEN TAB 500 MG TAB PO STA (19:39)
--- NOTE | 2024-03-22 19:42 | ED ---
General Adult HPI - General Chief complaint: Nausea/Vomiting/Diarrhea Stated complaint: Rash Time Seen by Provider: 03/22/24 14:39 Source: patient, RN notes reviewed Mode of arrival: wheelchair Limitations: no limitations, physical limitation - History of Present Illness Initial comments: 73-year-old male presents to the emergency department for evaluation of abdominal discomfort, headache following initiation of new antibiotic. Patient states that he has been dealing with a diabetic foot ulcer for multiple months. He has been on oral antibiotics and was started on IV Zosyn through a PICC line 6 days ago. He reports that since then he has noticed intermittent abdominal discomfort and frequent bowel movements. He reports that he is currently not experiencing any abdominal pain or headaches. He states that the bowel movements are formed. He denies any hematemesis, melena. He denies any recent fever, chills. He notes that his wound appears to be improving. Follows with Dr. Wilkerson for this. - Related Data Home Medications Medication Instructions Recorded Confirmed Potassium Chloride [Klor-Con 20] 20 meq PO DAILY 01/15/14 03/14/24 Pravastatin Sodium [Pravachol] 40 mg PO HS 01/15/14 03/14/24 allopurinoL [Zyloprim] 100 mg PO HS 07/28/15 03/14/24 Sertraline HCl [Zoloft] 200 mg PO DAILY 11/05/15 03/14/24 Rivaroxaban [Xarelto] 20 mg PO HS 07/27/17 03/14/24 Empagliflozin [Jardiance] 25 mg PO DAILY 06/10/21 03/14/24 Pantoprazole [Protonix] 40 mg PO BID 06/10/21 03/14/24 glipiZIDE [Glucotrol] 20 mg PO AC-BID 08/14/22 03/14/24 LORazepam [Ativan] 2 mg PO BID 08/11/23 03/14/24 Temazepam [Restoril] 7.5 mg PO HS 02/11/24 03/14/24 Ziprasidone [Geodon] 40 mg PO BID 03/14/24 03/14/24 Previous Rx's Medication Instructions Recorded Fenofibrate [Lofibra] 160 mg PO DAILY 30 Days #30 tab 11/27/23 Amoxic-Pot Clav 875-125Mg 1 tab PO Q12HR 14 Days #28 tab 02/14/24 [Augmentin 875-125] Amoxic-Pot Clav 875-125Mg 1 tab PO Q12HR 14 Days #28 tab 02/14/24 [Augmentin 875-125] amLODIPine [Norvasc] 10 mg PO DAILY #30 tab 02/14/24 lisinopriL [Zestril] 10 mg PO DAILY #30 tab 02/14/24 Allergies Allergy/AdvReac Type Severity Reaction Status Date / Time clopidogrel bisulfate Allergy Rash/Hives Verified 03/22/24 14:26 [From Plavix] Sulfa (Sulfonamide Allergy Rash/Hives Verified 03/22/24 14:26 Antibiotics) gabapentin AdvReac Aggression, Verified 03/22/24 14:26 anxiety, mood swings metformin AdvReac Diarrhea Verified 03/22/24 14:26 morphine AdvReac Hallucinati Verified 03/22/24 14:26 ons pregabalin [From Lyrica] AdvReac Aggression, Verified 03/22/24 14:26 anxiety, mood swings Review of Systems ROS Statement: Those systems with pertinent positive or pertinent negative responses have been documented in the HPI. ROS Other: All systems not noted in ROS Statement are negative. Past Medical History Past Medical History: Atrial Fibrillation, Coronary Artery Disease (CAD), Cancer, Heart Failure, CVA/TIA, Diabetes Mellitus, GERD/Reflux, Hyperlipidemia, Hypertension, Myocardial Infarction (SD), Sleep Apnea/CPAP/BIPAP, Thyroid Disorder Additional Past Medical History / Comment(s): gout, skin ca, colon cancer with r esection and chemo (2017)., c-pap machine., ulcer on side of right great toe- receives wound tx ., BPH., gall bladder pain. Last Myocardial Infarction Date:: 2006 History of Any Multi-Drug Resistant Organisms: MRSA Date of last positivie culture/infection: 2022 MDRO Source:: right great toe Past Surgical History: Appendectomy, Bowel Resection, Heart Catheterization With Stent, Orthopedic Surgery Additional Past Surgical History / Comment(s): skin ca removed, lt shoulder surgery ,rt knee surgery, deviated septum surgery Past Anesthesia/Blood Transfusion Reactions: No Reported Reaction Date of Last Stent Placement:: 2006 Past Psychological History: Anxiety, Bipolar, Depression Smoking Status: Former smoker Past Alcohol Use History: Occasional Past Drug Use History: None Reported - Past Family History Father Family Medical History: Asthma, Hyperlipidemia Additional Family Medical History / Comment(s): at age 61. was a heavy smoker,prostate sx a week before he not sure what took him. Mother Family Medical History: Dementia Additional Family Medical History / Comment(s): at age 75 from alzheimers General Exam Limitations: physical limitation General appearance: alert, in no apparent distress Head exam: Present: atraumatic, normocephalic, normal inspection Eye exam: Present: normal appearance, PERRL, EOMI. Absent: scleral icterus, conjunctival injection, periorbital swelling ENT exam: Present: normal exam, mucous membranes moist Respiratory exam: Present: normal lung sounds bilaterally. Absent: respiratory distress, wheezes, rales, rhonchi, stridor Cardiovascular Exam: Present: regular rate, normal rhythm, normal heart sounds. Absent: systolic murmur, diastolic murmur, rubs, gallop, clicks GI/Abdominal exam: Present: soft, normal bowel sounds. Absent: distended, tenderness, guarding, rebound, rigid Extremities exam: Present: normal inspection, full ROM, normal capillary refill. Absent: tenderness, pedal edema, joint swelling, calf tenderness Neurological exam: Present: alert, oriented X3, CN II-XII intact Psychiatric exam: Present: normal affect, normal mood Skin exam: Present: warm, dry, intact, normal color. Absent: rash Course Vital Signs 03/22/24 03/22/24 03/22/24 14:23 15:26 17:00 Temperature 98.2 F Pulse Rate 63 73 72 Respiratory 16 16 16 Rate Blood Pressure 149/81 110/82 146/85 O2 Sat by Pulse 97 95 97 Oximetry 03/22/24 19:45 Temperature 97.0 F L Pulse Rate 63 Respiratory 18 Rate Blood Pressure 146/93 O2 Sat by Pulse 98 Oximetry Medical Decision Making - Medical Decision Making Was pt. sent in by a medical professional or institution (, PA, DIRECTOR DIGITAL ANALYTICS, urgent care, hospital, or intermediate...) When possible be specific @ -No Did you speak to anyone other than the patient for history (EMS, parent, family, police, friend...)? What history was obtained from this source @ -No Did you review nursing and triage notes (agree or disagree)? Why? @ -I reviewed and agree with nursing and triage notes Were old charts reviewed (outside hosp., previous admission, EMS record, old EKG, old radiological studies, urgent care reports/EKG's, intermediate records)? Report findings @ -No old charts were reviewed Differential Diagnosis (chest pain, altered mental status, abdominal pain women, abdominal pain men, vaginal bleeding, weakness, fever, dyspnea, syncope, headache, dizziness, GI bleed, back pain, seizure, CVA, palpatations, mental health, musculoskeletal)? @ -Differential Abdominal Pain Men: Appendicitis, cholecystitis, diverticulosis, ischemic bowel, pancreatitis, hepatitis, UTI, gastroenteritis, AAA, incarcerated hernia, bowel obstruction, constipation, inflammatory bowel, hepatitis, peptic ulcer disease, splenic i nfarction, perforated viscus, testicular torsion, this is not meant to be an all-inclusive list EKG interpreted by me (3pts min.). @ -None X-rays interpreted by me (1pt min.). @ -KUB shows nonspecific bowel gas pattern CT interpreted by me (1pt min.). @ -None done U/S interpreted by me (1pt. min.). @ -None done What testing was considered but not performed or refused? (CT, X-rays, U/S, labs)? Why? @ -None What meds were considered but not given or refused? Why? @ -None Did you discuss the management of the patient with other professionals (professionals i.e. , PA, DIRECTOR [employer]NALYT[employer], lab, RT, psych nurse, social media intern, director index, teacher, armoured corps officer, counter caser)? Give summary @ -No Was smoking cessation discussed for >3mins.? @ -No Was critical care preformed (if so, how long)? @ -No Were there social determinants of health that impacted care today? How? (Homelessness, low income, unemployed, alcoholism, drug addiction, transportation, low edu. Level, literacy, decrease access to med. care, assisted, rehab)? @ -No Was there de-escalation of care discussed even if they declined (Discuss DNR or withdrawal of care, Hospice)? DNR status @ -No What co-morbidities impacted this encounter? (DM, HTN, Smoking, COPD, CAD, Cancer, CVA, ARF, Chemo, Hep., AIDS, mental health diagnosis, sleep apnea, morbid obesity)? @ -None Was patient admitted / discharged? Hospital course, mention meds given and route, prescriptions, significant lab abnormalities, going to OR and other pertinent info. @ -Discharged. Patient presented to the emergency department for evaluation of abdominal discomfort and headache following starting a new antibiotic. He reports that he is asymptomatic at this time. He has been receiving Zosyn through PICC line. He follows with Dr. Wilkerson for his infectious disease. Denies any recent fever. Vital signs are stable. Laboratories obtained revealing no significant leukocytosis.He did have mild lactic acidosis at 3.0, he received IV hydration and repeat was normal at 1.6; UA shows no evidence of infectious process, negative for blood. Stool sample was obtained, C. difficile unable to be ran as the stool was too formed. Discussed this with the patient and his . Stool culture will be sent. As patient is asymptomatic at this time, discussed treatment on outpatient basis. He is understanding and agreeable with this plan. Patient stable at time of discharge. Case discussed with Dr. Elmore. Undiagnosed new problem with uncertain prognosis? @ -No Drug Therapy requiring intensive monitoring for toxicity (Heparin, Nitro, Insulin, Cardizem)? @ -No Were any procedures done? @ -No Diagnosis/symptom? @ -Abdominal pain, diabetic foot ulcer Acute, or Chronic, or Acute on Chronic? @ -Acute on chronic Uncomplicated (without systemic symptoms) or Complicated (systemic symptoms)? @ -Uncomplicated Side effects of treatment? @ -No Exacerbation, Progression, or Severe Exacerbation? @ -No Poses a threat to life or bodily function? How? (Chest pain, USA, SD, pneumonia, PE, COPD, DKA, ARF, appy, cholecystitis, CVA, Diverticulitis, Homicidal, Suici nader, threat to staff... and all critical care pts) @ -No - Lab Data Result diagrams: 03/22/24 15:24 03/22/24 15:50 Lab Results 03/22/24 03/22/24 03/22/24 Range/Units 15:24 15:24 15:50 WBC 6.4 (3.8-10.6) k/uL RBC 5.42 (4.30-5.90) m/uL Hgb 14.2 (13.0-17.5) gm/dL Hct 45.6 (39.0-53.0) % MCV 84.1 (80.0-100.0) fL MCH 26.2 (25.0-35.0) pg MCHC 31.1 (31.0-37.0) g/dL RDW 17.3 H (11.5-15.5) % Plt Count 132 L (150-450) k/uL MPV 8.6 Neutrophils % 66 % Lymphocytes % 20 % Monocytes % 5 % Eosinophils % 6 % Basophils % 1 % Neutrophils # 4.3 (1.3-7.7) k/uL Lymphocytes # 1.3 (1.0-4.8) k/uL Monocytes # 0.3 (0-1.0) k/uL Eosinophils # 0.4 (0-0.7) k/uL Basophils # 0.0 (0-0.2) k/uL Hypochromasia Slight Poikilocytosis Slight Anisocytosis Slight Sodium 136 L (137-145) mmol/L Potassium 4.3 (3.5-5.1) mmol/L Chloride 109 H (98-107) mmol/L Carbon Dioxide 20 L (22-30) mmol/L Anion Gap 7 mmol/L BUN 18 (9-20) mg/dL Creatinine 0.75 (0.66-1.25) mg/dL Est GFR (CKD-EPI)AfAm >90 (>60 ml/min/1.73 sqM) Est GFR (CKD-EPI)NonAf >90 (>60 ml/min/1.73 sqM) Glucose 178 H (74-99) mg/dL Lactic Ac Sepsis Rflx Plasma Lactic Acid Iván 3.0 H* (0.7-2.0) mmol/L Calcium 9.6 (8.4-10.2) mg/dL Total Bilirubin 0.7 (0.2-1.3) mg/dL AST 34 (17-59) U/L ALT 24 (4-49) U/L Alkaline Phosphatase 94 (38-126) U/L Total Protein 6.6 (6.3-8.2) g/dL Albumin 3.9 (3.5-5.0) g/dL Amylase 87 (30-110) U/L Lipase 137 (23-300) U/L Urine Color Urine Appearance (Clear) Urine pH (5.0-8.0) Ur Specific [place] (1.001-1.035) Urine Protein (Negative) Urine Glucose (UA) (Negative) Urine Ketones (Negative) Urine Blood (Negative) Urine Nitrite (Negative) Urine Bilirubin (Negative) Urine Urobilinogen (<2.0) mg/dL Ur Leukocyte Esterase (Negative) 03/22/24 03/22/24 03/22/24 Range/Units 15:59 17:12 18:12 WBC (3.8-10.6) k/uL RBC (4.30-5.90) m/uL Hgb (13.0-17.5) gm/dL Hct (39.0-53.0) % MCV (80.0-100.0) fL MCH (25.0-35.0) pg MCHC (31.0-37.0) g/dL RDW (11.5-15.5) % Plt Count (150-450) k/uL MPV Neutrophils % % Lymphocytes % % Monocytes % % Eosinophils % % Basophils % % Neutrophils # (1.3-7.7) k/uL Lymphocytes # (1.0-4.8) k/uL Monocytes # (0-1.0) k/uL Eosinophils # (0-0.7) k/uL Basophils # (0-0.2) k/uL Hypochromasia Poikilocytosis Anisocytosis Sodium (137-145) mmol/L Potassium (3.5-5.1) mmol/L Chloride (98-107) mmol/L Carbon Dioxide (22-30) mmol/L Anion Gap mmol/L BUN (9-20) mg/dL Creatinine (0.66-1.25) mg/dL Est GFR (CKD-EPI)AfAm (>60 ml/min/1.73 sqM) Est GFR (CKD-EPI)NonAf (>60 ml/min/1.73 sqM) Glucose (74-99) mg/dL Lactic Ac Sepsis Rflx Y Plasma Lactic Acid Iván 1.6 (0.7-2.0) mmol/L Calcium (8.4-10.2) mg/dL Total Bilirubin (0.2-1.3) mg/dL AST (17-59) U/L ALT (4-49) U/L Alkaline Phosphatase (38-126) U/L Total Protein (6.3-8.2) g/dL Albumin (3.5-5.0) g/dL Amylase (30-110) U/L Lipase (23-300) U/L Urine Color Colorless Urine Appearance Clear (Clear) Urine pH 5.0 (5.0-8.0) Ur Specific [place] 1.012 (1.001-1.035) Urine Protein Negative (Negative) Urine Glucose (UA) 4+ H (Negative) Urine Ketones Negative (Negative) Urine Blood Negative (Negative) Urine Nitrite Negative (Negative) Urine Bilirubin Negative (Negative) Urine Urobilinogen <2.0 (<2.0) mg/dL Ur Leukocyte Esterase Negative (Negative) Disposition Clinical Impression: Abdominal pain, Nausea Disposition: HOME SELF-CARE Condition: Stable Instructions (If sedation given, give patient instructions): Abdominal Pain (ED) Additional Instructions: Please follow-up with infectious disease and your primary care provider. Return to the emergency department for new or worsening symptoms. Is patient prescribed a controlled substance at d/c from ED?: No Referrals: Ramon Wilkerson MD [Primary Care Provider] - 1-2 days
[2024-03-22 19:54] VITALS: BP 146/93; PULSE 63; RESP 18; TEMP 97
== END 2024-03-22 20:34 | disposition home or self-care (01) ==
LOC: EC 14:12
DX: R10.9 Unspecified abdominal pain (principal); R11.2 Nausea with vomiting, unspecified; Z88.2 Allergy status to sulfonamides; Z88.5 Allergy status to narcotic agent; Z88.8 Allergy status to other drugs, medicaments and biological substances; Z87.891 Personal history of nicotine dependence
CPT/HCPCS: 36415; 74018; 80053; 81003; 82150; 83605; 83630; 83690; 85025; 87045; 87046; 87324; 96360; 99284

== ENCOUNTER 2024-04-02 15:27 | Emergency (ER) | payer OTHER, MEDICARE ==
[2024-04-02 15:36] VITALS: TEMP 98.3
--- NOTE | 2024-04-02 16:21 | ED ---
Abdominal Pain HPI - General Chief Complaint: Abdominal Pain Stated Complaint: abd pain Time Seen by Provider: 04/02/24 15:40 Source: patient, family, RN notes reviewed Mode of arrival: ambulatory Limitations: no limitations - History of Present Illness Initial Comments: This is a 73-year-old male presented to emergency department with his with referral from infectious disease physician with concern for abdominal infection. Patient is currently treated for C. difficile with oral vancomycin. Patient had appointment with infectious disease physician today for follow-up of right sided first digit toe infection and C. difficile. Concerned that patient is having left lower quadrant abdominal pain and recommend he reports emergency room for CT for further evaluation. Patient states that he has been having multiple episodes of diarrhea each day. Denies hematochezia or melena. Denies nausea, vomiting, fevers, chills. Denies urinary complaints. She is also been having headaches however scheduled for a cervical spine procedure in the next upcoming weeks for bulging disc. - Related Data Home Medications Medication Instructions Recorded Confirmed Potassium Chloride [Klor-Con 20] 20 meq PO DAILY 01/15/14 03/14/24 Pravastatin Sodium [Pravachol] 40 mg PO HS 01/15/14 03/14/24 allopurinoL [Zyloprim] 100 mg PO HS 07/28/15 03/14/24 Sertraline HCl [Zoloft] 200 mg PO DAILY 11/05/15 03/14/24 Rivaroxaban [Xarelto] 20 mg PO HS 07/27/17 03/14/24 Empagliflozin [Jardiance] 25 mg PO DAILY 06/10/21 03/14/24 Pantoprazole [Protonix] 40 mg PO BID 06/10/21 03/14/24 glipiZIDE [Glucotrol] 20 mg PO AC-BID 08/14/22 03/14/24 LORazepam [Ativan] 2 mg PO BID 08/11/23 03/14/24 Temazepam [Restoril] 7.5 mg PO HS 02/11/24 03/14/24 Ziprasidone [Geodon] 40 mg PO BID 03/14/24 03/14/24 Previous Rx's Medication Instructions Recorded Fenofibrate [Lofibra] 160 mg PO DAILY 30 Days #30 tab 11/27/23 Amoxic-Pot Clav 875-125Mg 1 tab PO Q12HR 14 Days #28 tab 02/14/24 [Augmentin 875-125] Amoxic-Pot Clav 875-125Mg 1 tab PO Q12HR 14 Days #28 tab 02/14/24 [Augmentin 875-125] amLODIPine [Norvasc] 10 mg PO DAILY #30 tab 02/14/24 lisinopriL [Zestril] 10 mg PO DAILY #30 tab 02/14/24 Ketorolac [Toradol] 10 mg PO Q8HR #15 tab 04/02/24 Allergies Allergy/AdvReac Type Severity Reaction Status Date / Time clopidogrel bisulfate Allergy Rash/Hives Verified 04/02/24 15:34 [From Plavix] Sulfa (Sulfonamide Allergy Rash/Hives Verified 04/02/24 15:34 Antibiotics) gabapentin AdvReac Aggression, Verified 04/02/24 15:34 anxiety, mood swings metformin AdvReac Diarrhea Verified 04/02/24 15:34 morphine AdvReac Hallucinati Verified 04/02/24 15:34 ons pregabalin [From Lyrica] AdvReac Aggression, Verified 04/02/24 15:34 anxiety, mood swings Review of Systems ROS Statement: Those systems with pertinent positive or pertinent negative responses have been documented in the HPI. ROS Other: All systems not noted in ROS Statement are negative. Past Medical History Past Medical History: Atrial Fibrillation, Coronary Artery Disease (CAD), Cancer, Heart Failure, CVA/TIA, Diabetes Mellitus, GERD/Reflux, Hyperlipidemia, Hypertension, Myocardial Infarction (TX), Sleep Apnea/CPAP/BIPAP, Thyroid Disorder Additional Past Medical History / Comment(s): gout, skin ca, colon cancer with resection and chemo (2016)., c-pap machine., ulcer on side of right great toe- receives wound tx ., BPH., gall bladder pain. Last Myocardial Infarction Date:: 2006 History of Any Multi-Drug Resistant Organisms: MRSA Date of last positivie culture/infection: 2022 MDRO Source:: right great toe Past Surgical History: Appendectomy, Bowel Resection, Heart Catheterization With Stent, Orthopedic Surgery Additional Past Surgical History / Comment(s): skin ca removed, lt shoulder surgery ,rt knee surgery, deviated septum surgery Past Anesthesia/Blood Transfusion Reactions: No Reported Reaction Date of Last Stent Placement:: 2006 Past Psychological History: Anxiety, Bipolar, Depression Smoking Status: Former smoker Past Alcohol Use History: Occasional Past Drug Use History: None Reported - Past Family History Father Family Medical History: Asthma, Hyperlipidemia Additional Family Medical History / Comment(s): at age 61. was a heavy smoker,prostate sx a week before he not sure what took him. Mother Family Medical History: Dementia Additional Family Medical History / Comment(s): at age 75 from alzheimers General Exam Limitations: no limitations General appearance: alert, in no apparent distress, obese Neck exam: Present: normal inspection, tenderness (with ROM). Absent: meningismus, lymphadenopathy Respiratory exam: Present: normal lung sounds bilaterally. Absent: respiratory distress, wheezes, rales, rhonchi, stridor Cardiovascular Exam: Present: regular rate, normal rhythm, normal heart sounds. Absent: systolic murmur, diastolic murmur, rubs, gallop, clicks GI/Abdominal exam: Present: soft, tenderness (left sided abomen, most over LLQ), normal bowel sounds. Absent: distended, guarding, rebound, rigid Extremities exam: Present: normal inspection, full ROM, normal capillary refill. Absent: tenderness, pedal edema, joint swelling, calf tenderness Back exam: Present: normal inspection Skin exam: Present: warm, dry, intact, normal color. Absent: rash Course Vital Signs 04/02/24 04/02/24 15:31 17:00 Temperature 98.3 F Pulse Rate 77 64 Respiratory 20 16 Rate Blood Pressure 160/82 133/73 O2 Sat by Pulse 95 95 Oximetry Medical Decision Making - Medical Decision Making Was pt. sent in by a medical professional or institution (, PA, REINFORCED STEEL PLACING SUPERVISOR, urgent care, hospital, or long-term...) When possible be specific @ -Patient was advised by infectious disease physician, Dr. Wilkerson, to report to the emergency department for further evaluation of left lower quadrant abdominal pain and diarrhea. Did you speak to anyone other than the patient for history (EMS, parent, family, police, friend...)? What history was obtained from this source @ -No Did you review nursing and triage notes (agree or disagree)? Why? @ -I reviewed and agree with nursing and triage notes Were old charts reviewed (outside hosp., previous admission, EMS record, old EKG, old radiological studies, urgent care reports/EKG's, long-term records)? Report findings @ -No old charts were reviewed Differential Diagnosis (chest pain, altered mental status, abdominal pain women, abdominal pain men, vaginal bleeding, weakness, fever, dyspnea, syncope, headac he, dizziness, GI bleed, back pain, seizure, CVA, palpatations, mental health, musculoskeletal)? @ -Differential Abdominal Pain Men: Appendicitis, cholecystitis, diverticulosis, ischemic bowel, pancreatitis, hepatitis, UTI, gastroenteritis, AAA, incarcerated hernia, bowel obstruction, constipation, inflammatory bowel, hepatitis, peptic ulcer disease, splenic infarction, perforated viscus, testicular torsion, this is not meant to be an all-inclusive list EKG interpreted by me (3pts min.). @ -None X-rays interpreted by me (1pt min.). @ -None done CT interpreted by me (1pt min.). @ -CT the abdomen and pelvis with IV contrast reveals no evidence of diverticulitis with a nodular contour to the liver and enlarged spleen and prostatomegaly. U/S interpreted by me (1pt. min.). @ -None done What testing was considered but not performed or refused? (CT, X-rays, U/S, labs)? Why? @ -None What meds were considered but not given or refused? Why? @ -None Did you discuss the management of the patient with other professionals (professionals i.e. , PA, REIN[employer] STE[employer]ACING SUPERVISOR, lab, RT, psych nurse, social security assessor, supervisor tan room, teacher, ambulance officer, disability case manager)? Give summary @ -No Was smoking cessation discussed for >3mins.? @ -No Was critical care preformed (if so, how long)? @ -No Were there social determinants of health that impacted care today? How? (Homelessness, low income, unemployed, alcoholism, drug addiction, transportation, low edu. Level, literacy, decrease access to med. care, [facility], rehab)? @ -No Was there de-escalation of care discussed even if they declined (Discuss DNR or withdrawal of care, Hospice)? DNR status @ -No What co-morbidities impacted this encounter? (DM, HTN, Smoking, COPD, CAD, Cancer, CVA, ARF, Chemo, Hep., AIDS, mental health diagnosis, sleep apnea, mor bid obesity)? @ -None Was patient admitted / discharged? Hospital course, mention meds given and rou te, prescriptions, significant lab abnormalities, going to OR and other pertinent info. @ -Discharged. 73-year-old male with abdominal pain. My evaluation the patient is resting company no signs acute distress. She is mildly hypertensive with a blood pressure 160/82. Physical examination markable for left-sided abdominal tenderness that is most for of the left lower quadrant with no signs of rebound tenderness or rigidity. Equal bowel sounds heard throughout quadrants. Patient provided with dose of Toradol and IV fluids with clinical manifestations of dehydration. Patient will be evaluated via laboratory studies and CT imaging. He is in agreement with this plan. Laboratory studies including CBC, CMP unremarkable, lactic acid nonelevated at 1.4. On reevaluation, patient states that Toradol has helped to alleviate some symptoms. CT unremarkable for acute process. Recommend that patient continue oral antibiotics as prescribed by infectious disease and follow-up as scheduled with provider specialist including orthopedics and infectious disease for further evaluation. All questions have been answered at bedside answered return parameters discussed with the patient h e is verbalized understanding. Case discussed with Dr. Jiménez Undiagnosed new problem with uncertain prognosis? @ -No Drug Therapy requiring intensive monitoring for toxicity (Heparin, Nitro, Insulin, Cardizem)? @ -No Were any procedures done? @ -No Diagnosis/symptom? @ -Abdominal pain Acute, or Chronic, or Acute on Chronic? @ -Acute Uncomplicated (without systemic symptoms) or Complicated (systemic symptoms)? @ -Uncomplicated Side effects of treatment? @ -No Exacerbation, Progression, or Severe Exacerbation? @ -No Poses a threat to life or bodily function? How? (Chest pain, [place], [place], pneumonia, PE, COPD, DKA, ARF, appy, cholecystitis, CVA, Diverticulitis, Homicidal, Suicidal, threat to staff... and all critical care pts) @ -No - Lab Data Result diagrams: 04/02/24 18:11 04/02/24 16:36 Lab Results 04/02/24 04/02/24 04/02/24 Range/Units 16:36 16:36 18:11 WBC 6.5 (3.8-10.6) k/uL RBC 4.70 (4.30-5.90) m/uL Hgb 12.3 L (13.0-17.5) gm/dL Hct 38.8 L (39.0-53.0) % MCV 82.5 (80.0-100.0) fL MCH 26.1 (25.0-35.0) pg MCHC 31.7 (31.0-37.0) g/dL RDW 16.7 H (11.5-15.5) % Plt Count 127 L (150-450) k/uL MPV 8.4 Neutrophils % 69 % Lymphocytes % 21 % Monocytes % 5 % Eosinophils % 3 % Basophils % 0 % Neutrophils # 4.4 (1.3-7.7) k/uL Lymphocytes # 1.4 (1.0-4.8) k/uL Monocytes # 0.3 (0-1.0) k/uL Eosinophils # 0.2 (0-0.7) k/uL Basophils # 0.0 (0-0.2) k/uL Hypochromasia Moderate Poikilocytosis Slight Anisocytosis Slight Sodium 135 L (137-145) mmol/L Potassium 4.7 (3.5-5.1) mmol/L Chloride 108 H (98-107) mmol/L Carbon Dioxide 19 L (22-30) mmol/L Anion Gap 8 mmol/L BUN 14 (9-20) mg/dL Creatinine 0.73 (0.66-1.25) mg/dL Est GFR (CKD-EPI)AfAm >90 (>60 ml/min/1.73 sqM) Est GFR (CKD-EPI)NonAf >90 (>60 ml/min/1.73 sqM) Glucose 124 H (74-99) mg/dL Plasma Lactic Acid Iván 1.4 (0.7-2.0) mmol/L Calcium 9.9 (8.4-10.2) mg/dL Total Bilirubin 0.8 (0.2-1.3) mg/dL AST 37 (17-59) U/L ALT 21 (4-49) U/L Alkaline Phosphatase 99 (38-126) U/L Total Protein 7.1 (6.3-8.2) g/dL Albumin 4.2 (3.5-5.0) g/dL Amylase 67 (30-110) U/L Lipase 149 (23-300) U/L Disposition Clinical Impression: Abdominal pain Disposition: HOME SELF-CARE Condition: Stable Instructions (If sedation given, give patient instructions): Abdominal Pain (ED) Additional Instructions: Please return to the Emergency Department if symptoms worsen or any other concerns. Prescriptions: Ketorolac [Toradol] 10 mg PO Q8HR #15 tab Is patient prescribed a controlled substance at d/c from ED?: No Referrals: Ramon Wilkerson MD [Primary Care Provider] - 1-2 days Time of Disposition: 18:40
[2024-04-02] MEDS: MORPHINE SULFATE 4 MG/ML SYRINGE IVP STA (16:38)
[2024-04-02] MEDS: SODIUM CHLORIDE 0.9% 1,000 ML IV STA (16:40)
[2024-04-02] MEDS: KETOROLAC 15 MG/ML 1 ML VIAL IVP STA (16:40)
[2024-04-02 17:01] LABS: ALT 21 U/L (4-49); African American GFR (CKD) >90 (>60 ml/min/1.73 sqM); Amylase 67 U/L (30-110); Anion Gap 8 mmol/L; Blood Urea Nitrogen 14 mg/dL (9-20); Calcium 9.9 mg/dL (8.4-10.2); Carbon Dioxide 19 mmol/L (22-30); Chloride 108 mmol/L (98-107); Glucose 124 mg/dL (74-99); Lipase 149 U/L (23-300); Non-African American GFR(CKD) >90 (>60 ml/min/1.73 sqM); Sodium 135 mmol/L (137-145); Total Bilirubin 0.8 mg/dL (0.2-1.3); Total Protein 7.1 g/dL (6.3-8.2)
[2024-04-02 17:06] LABS: AST 37 U/L (17-59); Albumin 4.2 g/dL (3.5-5.0); Alkaline Phosphatase 99 U/L (38-126); Potassium 4.7 mmol/L (3.5-5.1)
[2024-04-02 17:21] VITALS: RESP 16
[2024-04-02 18:21] LABS: Anisocytosis Slight; Basophils % (A) 0 %; Eosinophils # (A) 0.2 k/uL (0-0.7); Eosinophils % (A) 3 %; HCT 38.8 % (39.0-53.0); HGB 12.3 gm/dL (13.0-17.5); Hypochromasia Moderate; Lymphocytes # (A) 1.4 k/uL (1.0-4.8); Lymphocytes % (A) 21 %; MCH 26.1 pg (25.0-35.0); MCHC 31.7 g/dL (31.0-37.0); MCV 82.5 fL (80.0-100.0); Mean Platelet Volume 8.4; Monocytes # (A) 0.3 k/uL (0-1.0); Monocytes % (A) 5 %; Neutrophils # (A) 4.4 k/uL (1.3-7.7); Neutrophils % (A) 69 %; Platelet Count 127 k/uL (150-450); Poikilocytosis Slight; RDW 16.7 % (11.5-15.5); WBC 6.5 k/uL (3.8-10.6)
--- NOTE | 2024-04-02 18:28 | CT ---
EXAMINATION TYPE: CT abdomen pelvis w con DATE OF EXAM: 04/02/2024 6:05 PM COMPARISON: 02/11/2024 CLINICAL INDICATION: Male, 73 years old with history of LLQ ab pain, diarrhea, hx cdiff; LLQ ab pain, diarrhea, hx cdiff TECHNIQUE: Axial CT abdomen pelvis w con;Sagittal and coronal reformats were created on a separate w orkstation. Contrast used:100 ml mL of Isovue 300 with IV Contrast, (none if empty) Oral contrast used: without Oral Contrast (none if empty) CT DLP: 2470.4 mGycm, Automated exposure control for dose reduction was used. FINDINGS: LOWER CHEST: This mild cardiomegaly. ABDOMEN LIVER: Mild nodular contour. GALLBLADDER AND BILE DUCTS: Unremarkable. PANCREAS: Unremarkable. SPLEEN: Enlarged measuring 14.9 cm. Scattered calcified granulomas within the spleen. ADRENAL GLANDS: Unremarkable. KIDNEYS AND URETERS: No evidence of hydronephrosis or renal calculus. The ureters are unremarkable. Simple appearing left hepatic cyst. PELVIS BLADDER: No evidence for wall thickening or mass given limitations of exam. REPRODUCTIVE: Prostate is enlarged in size measuring 6.7. Cm in transverse dimension. ABDOMEN & PELVIS STOMACH AND BOWEL: No evidence of bowel obstruction. No evidence for diverticulitis. Scattered coloni c diverticula. Sigmoid colon is tortuous and extends completely across midline to the right abdomen. PERITONEUM/RETROPERITONEUM: No evidence of pneumoperitoneum or free fluid. VASCULATURE: No evidence of aortic aneurysm. MUSCULOSKELETAL: No acute osseous abnormalities LYMPH NODES: No gross evidence for lymphadenopathy. SOFT TISSUE/ABDOMINAL WALL: Unremarkable IMPRESSION: 1. No evidence for diverticulitis. No obstructive uropathy or renal calculus. 2. Nodular contour to liver with enlarged spleen correlate for cirrhosis with portal hypertension. 3. Prostatomegaly correlate with serum PSA. [facility], , 04/02/2024 6:25 PM
[2024-04-02 19:11] VITALS: BP 144/95; PULSE 70
== END 2024-04-02 19:10 | disposition home or self-care (01) ==
LOC: EC 15:27
DX: R10.32 Left lower quadrant pain (principal); Z88.1 Allergy status to other antibiotic agents; Z88.2 Allergy status to sulfonamides; Z88.5 Allergy status to narcotic agent; Z88.8 Allergy status to other drugs, medicaments and biological substances; Z87.891 Personal history of nicotine dependence; Z90.49 Acquired absence of other specified parts of digestive tract; Z86.73 Personal history of transient ischemic attack (TIA), and cerebral infarction without residual deficits
CPT/HCPCS: 36415; 80053; 82150; 83605; 83690; 85025; 74177; 99284; 96374; 96361 ×2; J1885; Q9967

== ENCOUNTER 2024-04-19 15:18 | Emergency (ER) | payer OTHER ==
--- NOTE | 2024-04-19 15:34 | ED ---
General Adult HPI - General Source: patient, family Mode of arrival: ambulatory Limitations: no limitations <Damian Jacques - Last Filed: 04/19/24 15:32> <Janis Martins - Last Filed: 04/19/24 19:13> - General Stated complaint: Abdominal Pain Time Seen by Provider: 04/19/24 15:32 - History of Present Illness Initial comments: 73-year-old male presenting with chief complaint of abdominal pain. Patient is having diffuse pain as well as bloating. Patient recently finished treatment for C. difficile. He is still having some diarrhea, however it has improved and he has no more blood in his stool. No fever. (Damian Jacques) This is a 73-year-old male with a history of c.diff, recently finishing oral vancomycin, presenting to the emergency department with his for chief complaint of abdominal pain and bloating. States that this has been worsening over the past 5 days. Patient states that his last oral antibiotic was earlier in the week. Patient states that he is still experiencing mild diarrhea however stools are beginning to form and are not as loose as they were previously. He denies hematochezia or melena. Denies fevers, chills, nausea, vomiting, urinary complaints. (Janis Martins) - Related Data Home Medications Medication Instructions Recorded Confirmed Potassium Chloride [Klor-Con 20] 20 meq PO DAILY 01/15/14 03/14/24 Pravastatin Sodium [Pravachol] 40 mg PO HS 01/15/14 03/14/24 allopurinoL [Zyloprim] 100 mg PO HS 07/28/15 03/14/24 Sertraline HCl [Zoloft] 200 mg PO DAILY 11/05/15 03/14/24 Rivaroxaban [Xarelto] 20 mg PO HS 07/27/17 03/14/24 Empagliflozin [Jardiance] 25 mg PO DAILY 06/10/21 03/14/24 Pantoprazole [Protonix] 40 mg PO BID 06/10/21 03/14/24 glipiZIDE [Glucotrol] 20 mg PO AC-BID 08/14/22 03/14/24 LORazepam [Ativan] 2 mg PO BID 08/11/23 03/14/24 Temazepam [Restoril] 7.5 mg PO HS 02/11/24 03/14/24 Ziprasidone [Geodon] 40 mg PO BID 03/14/24 03/14/24 Previous Rx's Medication Instructions Recorded Fenofibrate [Lofibra] 160 mg PO DAILY 30 Days #30 tab 11/27/23 Amoxic-Pot Clav 875-125Mg 1 tab PO Q12HR 14 Days #28 tab 02/14/24 [Augmentin 875-125] Amoxic-Pot Clav 875-125Mg 1 tab PO Q12HR 14 Days #28 tab 02/14/24 [Augmentin 875-125] amLODIPine [Norvasc] 10 mg PO DAILY #30 tab 02/14/24 lisinopriL [Zestril] 10 mg PO DAILY #30 tab 02/14/24 Ketorolac [Toradol] 10 mg PO Q8HR #15 tab 04/02/24 Allergies Allergy/AdvReac Type Severity Reaction Status Date / Time clopidogrel bisulfate Allergy Rash/Hives Verified 04/19/24 16:10 [From Plavix] Sulfa (Sulfonamide Allergy Rash/Hives Verified 04/19/24 16:10 Antibiotics) gabapentin AdvReac Aggression, Verified 04/19/24 16:10 anxiety, mood swings metformin AdvReac Diarrhea Verified 04/19/24 16:10 morphine AdvReac Hallucinati Verified 04/19/24 16:10 ons pregabalin [From Lyrica] AdvReac Aggression, Verified 04/19/24 16:10 anxiety, mood swings Review of Systems ROS Other: All systems not noted in ROS Statement are negative. <Damian Jacques - Last Filed: 04/19/24 15:32> ROS Other: All systems not noted in ROS Statement are negative. <Janis Martins - Last Filed: 04/19/24 19:13> ROS Statement: Those systems with pertinent positive or pertinent negative responses have been documented in the HPI. Past Medical History Past Medical History: Atrial Fibrillation, Coronary Artery Disease (CAD), Cancer, Heart Failure, CVA/TIA, Diabetes Mellitus, GERD/Reflux, Hyperlipidemia, Hypertension, Myocardial Infarction (MT), Sleep Apnea/CPAP/BIPAP, Thyroid Disorder Additional Past Medical History / Comment(s): gout, skin ca, colon cancer with resection and chemo (2017)., c-pap machine., ulcer on side of right great toe- receives wound tx ., BPH., gall bladder pain. Last Myocardial Infarction Date:: 2006 History of Any Multi-Drug Resistant Organisms: MRSA Date of last positivie culture/infection: 2022 MDRO Source:: right great toe Past Surgical History: Appendectomy, Bowel Resection, Heart Catheterization With Stent, Orthopedic Surgery Additional Past Surgical History / Comment(s): skin ca removed, lt shoulder surgery ,rt knee surgery, deviated septum surgery Past Anesthesia/Blood Transfusion Reactions: No Reported Reaction Date of Last Stent Placement:: 2006 Past Psychological History: Anxiety, Bipolar, Depression Smoking Status: Former smoker Past Alcohol Use History: Occasional Past Drug Use History: None Reported - Past Family History Father Family Medical History: Asthma, Hyperlipidemia Additional Family Medical History / Comment(s): at age 61. was a heavy smoker,prostate sx a week before he not sure what took him. Mother Family Medical History: Dementia Additional Family Medical History / Comment(s): at age 75 from alzheimers <Damian Jacques - Last Filed: 04/19/24 15:32> General Exam <Damian Jacques - Last Filed: 04/19/24 15:32> General appearance: alert, in no apparent distress Eye exam: Present: normal appearance, PERRL, EOMI. Absent: scleral icterus, conjunctival injection, periorbital swelling Neck exam: Present: normal inspection. Absent: tenderness, meningismus, lymphadenopathy Respiratory exam: Present: normal lung sounds bilaterally. Absent: respiratory distress, wheezes, rales, rhonchi, stridor Cardiovascular Exam: Present: regular rate, normal rhythm, normal heart sounds. Absent: systolic murmur, diastolic murmur, rubs, gallop, clicks GI/Abdominal exam: Present: soft, distended, tenderness (mild LLQ), normal bowel sounds. Absent: guarding, rebound, rigid Extremities exam: Present: normal inspection, full ROM, normal capillary refill. Absent: tenderness, pedal edema, joint swelling, calf tenderness Back exam: Present: normal inspection Neurological exam: Present: alert, oriented X3, CN II-XII intact Skin exam: Present: warm, dry, intact, normal color. Absent: rash <Janis Martins - Last Filed: 04/19/24 19:13> - General Exam Comments Initial Comments: Visual Physical Exam Vital signs reviewed General: Well-appearing, nontoxic, no acute distress. Head: Normocephalic, atraumatic Eyes: PERRLA, EOMI ENT: Airway patent Chest: Nonlabored breathing Skin: No visual rash, normal skin tone Neuro: Alert and oriented 3 Musculoskeletal: No gross abnormalities (Damian Jacques) Course Vital Signs 04/19/24 04/19/24 16:04 17:37 Temperature 98.4 F Pulse Rate 70 72 Respiratory 20 20 Rate Blood Pressure 155/93 151/95 O2 Sat by Pulse 98 96 Oximetry Medical Decision Making <Damian Jacques - Last Filed: 04/19/24 15:32> - Lab Data Result diagrams: 04/19/24 17:34 04/19/24 17:34 <Janis Martins - Last Filed: 04/19/24 19:13> - Medical Decision Making I performed the quick note portion of this visit, electronically signed Damian Jacques PA-C (Damian Jacques) Was pt. sent in by a medical professional or institution ([facility] Rojas, DISABILITY CASE MANAGER, urgent care, hospital, or shelter...) When possible be specific @ -No Did you speak to anyone other than the patient for history (EMS, parent, family, police, friend...)? What history was obtained from this source @ -No Did you review nursing and triage notes (agree or disagree)? Why? @ -I reviewed and agree with nursing and triage notes Were old charts reviewed (outside hosp., previous admission, EMS record, old EKG, old radiological studies, urgent care reports/EKG's, shelter records)? Report findings @ -Patient's recent CT-guided biopsy of left calf is unremarkable for acute abdominal process. Differential Diagnosis (chest pain, altered mental status, abdominal pain women, abdominal pain men, vaginal bleeding, weakness, fever, dyspnea, syncope, headache, dizziness, GI bleed, back pain, seizure, CVA, palpatations, mental health, musculoskeletal)? @ -Differential Abdominal Pain Men: Appendicitis, cholecystitis, diverticulosis, ischemic bowel, pancreatitis, hepatitis, UTI, gastroenteritis, AAA, incarcerated hernia, bowel obstruction, constipation, inflammatory bowel, hepatitis, peptic ulcer disease, splenic infarction, perforated viscus, testicular torsion, this is not meant to be an all-inclusive list EKG interpreted by me (3pts min.). @ -none X-rays interpreted by me (1pt min.). @ -None done CT interpreted by me (1pt min.). @ -None done U/S interpreted by me (1pt. min.). @ -None done What testing was considered but not performed or refused? (CT, X-rays, U/S, labs)? Why? @ -CT imaging of the abdomen pelvis was considered but deferred at this time. Patient has been having persistent abdominal pain over the past few months and he is experiencing pain. Additionally, laboratory studies are unremarkable ph ysical examination remarkable for mild tenderness to deep palpation left lower quadrant. There is no clinical concern for emergent abdominal pathology at this time the patient is also agreeable deferring CT imaging at this time. What meds were considered but not given or refused? Why? @ -None Did you discuss the management of the patient with other professionals (professionals i.e. , PA, DISABILITY CASE MANAGER, lab, RT, psych nurse, dialysis social worker, dental office receptionist, teacher, chief wellness officer, piano case and bench assembler)? Give summary @ -No Was smoking cessation discussed for >3mins.? @ -No Was critical care preformed (if so, how long)? @ -No Were there social determinants of health that impacted care today? How? (Homelessness, low income, unemployed, alcoholism, drug addiction, transportation, low edu. Level, literacy, decrease access to med. care, alf, rehab)? @ -No Was there de-escalation of care discussed even if they declined (Discuss DNR or withdrawal of care, Hospice)? DNR status @ -No What co-morbidities impacted this encounter? (DM, HTN, Smoking, COPD, CAD, Cancer, CVA, ARF, Chemo, Hep., AIDS, mental health diagnosis, sleep apnea, morbid obesity)? @ -None Was patient admitted / discharged? Hospital course, mention meds given and route, prescriptions, significant lab abnormalities, going to OR and other pertinent info. @ -Discharge. 73-year-old male with abdominal pain and bloating. Patient was originally evaluated in the emergency department waiting room as a quick note rehydration, ordered. On my evaluation the patient is resting up in no signs acute distress presenting mildly hypertensive however states it is not his baseline. Patient has mild abdominal distention with equal bowel sounds x 4 quadrants. Patient has mild tenderness to deep palpation of the left lower quadrant with no signs of rebound tenderness or rigidity. Extremities with dose of pain medications and clinical signs of dehydration pending laboratory results. Labs are grossly within normal limits. Patient patient at bedside option for CT imaging of the abdomen however patient has declined at this time. Patient has been having persistent abdominal pain that is worsening over the past few months and in regard to physical exam findings and laboratory studies is minimal clinical concern for intra-abdominal process at this time. Patient states that he feels comfortable following up with specialist outpatient for further evaluation. Patient provided with starter pack of Tylenol 3 to take only as needed for abdominal pain. Discussed with Dr. Whitney. Undiagnosed new problem with uncertain prognosis? @ -No Drug Therapy requiring intensive monitoring for toxicity (Heparin, Nitro, Insulin, Cardizem)? @ -No Were any procedures done? @ -No Diagnosis/symptom? @ -Abdominal pain Acute, or Chronic, or Acute on Chronic? @ -Acute Uncomplicated (without systemic symptoms) or Complicated (systemic symptoms)? @ -Uncomplicated Side effects of treatment? @ -No Exacerbation, Progression, or Severe Exacerbation? @ -No Poses a threat to life or bodily function? How? (Chest pain, USA, MT, pneumonia, PE, COPD, DKA, ARF, appy, cholecystitis, CVA, Diverticulitis, Homicidal, Suicidal, threat to staff... and all critical care pts) @ -No (Janis Martins) - Lab Data Lab Results 04/19/24 04/19/24 04/19/24 Range/Units 17:34 17:34 17:34 WBC 8.3 (3.8-10.6) k/uL RBC 5.69 (4.30-5.90) m/uL Hgb 14.4 (13.0-17.5) gm/dL Hct 46.4 (39.0-53.0) % MCV 81.5 (80.0-100.0) fL MCH 25.3 (25.0-35.0) pg MCHC 31.0 (31.0-37.0) g/dL RDW 16.6 H (11.5-15.5) % Plt Count 144 L (150-450) k/uL MPV 8.0 Neutrophils % 77 % Lymphocytes % 16 % Monocytes % 5 % Eosinophils % 1 % Basophils % 1 % Neutrophils # 6.3 (1.3-7.7) k/uL Lymphocytes # 1.3 (1.0-4.8) k/uL Monocytes # 0.4 (0-1.0) k/uL Eosinophils # 0.1 (0-0.7) k/uL Basophils # 0.0 (0-0.2) k/uL Hypochromasia Moderate Poikilocytosis Slight Anisocytosis Slight Sodium 138 (137-145) mmol/L Potassium 4.5 (3.5-5.1) mmol/L Chloride 109 H (98-107) mmol/L Carbon Dioxide 19 L (22-30) mmol/L Anion Gap 10 mmol/L BUN 15 (9-20) mg/dL Creatinine 0.84 (0.66-1.25) mg/dL Est GFR (CKD-EPI)AfAm >90 (>60 ml/min/1.73 sqM) Est GFR (CKD-EPI)NonAf 88 (>60 ml/min/1.73 sqM) Glucose 124 H (74-99) mg/dL Plasma Lactic Acid Iván 1.8 (0.7-2.0) mmol/L Calcium 10.3 H (8.4-10.2) mg/dL Total Bilirubin 1.1 (0.2-1.3) mg/dL AST 23 (17-59) U/L ALT 20 (4-49) U/L Alkaline Phosphatase 84 (38-126) U/L Total Protein 7.4 (6.3-8.2) g/dL Albumin 4.5 (3.5-5.0) g/dL Amylase 67 (30-110) U/L Lipase 99 (23-300) U/L Disposition <Damian Jacques - Last Filed: 04/19/24 15:32> Is patient prescribed a controlled substance at d/c from ED?: No Time of Disposition: 18:55 <Janis Martins - Last Filed: 04/19/24 19:13> Clinical Impression: Abdominal pain Disposition: HOME SELF-CARE Condition: Good Instructions (If sedation given, give patient instructions): Abdominal Pain (ED) Additional Instructions: Please return to the Emergency Department if symptoms worsen or any other concerns. Referrals: [facility],Clinic [Primary Care Provider] - 1-2 days
[2024-04-19] MEDS: MORPHINE SULFATE 4 MG/ML SYRINGE IVP STA (17:40)
[2024-04-19] MEDS: SODIUM CHLORIDE 0.9% 500 ML 500 ML IV STA (17:41)
[2024-04-19 17:43] LABS: Anisocytosis Slight; Basophils % (A) 1 %; Eosinophils # (A) 0.1 k/uL (0-0.7); Eosinophils % (A) 1 %; HCT 46.4 % (39.0-53.0); HGB 14.4 gm/dL (13.0-17.5); Hypochromasia Moderate; Lymphocytes # (A) 1.3 k/uL (1.0-4.8); Lymphocytes % (A) 16 %; MCH 25.3 pg (25.0-35.0); MCV 81.5 fL (80.0-100.0); Monocytes # (A) 0.4 k/uL (0-1.0); Monocytes % (A) 5 %; Neutrophils # (A) 6.3 k/uL (1.3-7.7); Neutrophils % (A) 77 %; Platelet Count 144 k/uL (150-450); Poikilocytosis Slight; RBC 5.69 m/uL (4.30-5.90); RDW 16.6 % (11.5-15.5); WBC 8.3 k/uL (3.8-10.6)
[2024-04-19 17:52] LABS: ALT 20 U/L (4-49); AST 23 U/L (17-59); African American GFR (CKD) >90 (>60 ml/min/1.73 sqM); Albumin 4.5 g/dL (3.5-5.0); Alkaline Phosphatase 84 U/L (38-126); Amylase 67 U/L (30-110); Anion Gap 10 mmol/L; Blood Urea Nitrogen 15 mg/dL (9-20); Calcium 10.3 mg/dL (8.4-10.2); Carbon Dioxide 19 mmol/L (22-30); Chloride 109 mmol/L (98-107); Glucose 124 mg/dL (74-99); Lipase 99 U/L (23-300); Non-African American GFR(CKD) 88 (>60 ml/min/1.73 sqM); Potassium 4.5 mmol/L (3.5-5.1); Sodium 138 mmol/L (137-145); Total Bilirubin 1.1 mg/dL (0.2-1.3); Total Protein 7.4 g/dL (6.3-8.2)
[2024-04-19] MEDS: HYDROmorphone 0.5 MG/0.5 ML SYRINGE IVP STA ×2 (17:56→19:37)
[2024-04-19] MEDS: ACET/COD 300 MG/30 MG STARTER PACK 6 TAB BTL PO STA (19:37)
[2024-04-19 19:50] VITALS: BP 150/85; PULSE 73; RESP 18; TEMP 98
== END 2024-04-19 19:50 | disposition home or self-care (01) ==
LOC: EC 15:18
DX: R10.9 Unspecified abdominal pain (principal); Z87.891 Personal history of nicotine dependence; Z88.5 Allergy status to narcotic agent; Z88.2 Allergy status to sulfonamides; Z88.8 Allergy status to other drugs, medicaments and biological substances
CPT/HCPCS: 36415; 80053; 82150; 83605; 83690; 85025; 99284; 96374; 96376; J1171

== ENCOUNTER 2024-05-30 13:13 | Emergency (ER) | payer OTHER ==
[2024-05-30 13:22] VITALS: RESP 18; TEMP 97.5
[2024-05-30 14:56] LABS: Anisocytosis Slight; Basophils # (A) 0.1 k/uL (0-0.2); Basophils % (A) 1 %; Eosinophils # (A) 0.2 k/uL (0-0.7); Eosinophils % (A) 2 %; HCT 45.6 % (39.0-53.0); HGB 13.9 gm/dL (13.0-17.5); Hypochromasia Marked; Lymphocytes # (A) 1.4 k/uL (1.0-4.8); Lymphocytes % (A) 19 %; MCH 23.6 pg (25.0-35.0); MCHC 30.5 g/dL (31.0-37.0); MCV 77.1 fL (80.0-100.0); Mean Platelet Volume 8.5; Microcytosis Slight; Monocytes # (A) 0.5 k/uL (0-1.0); Monocytes % (A) 6 %; Neutrophils # (A) 5.5 k/uL (1.3-7.7); Neutrophils % (A) 72 %; Platelet Count 149 k/uL (150-450); Poikilocytosis Slight; RBC 5.91 m/uL (4.30-5.90); RDW 16.8 % (11.5-15.5); WBC 7.7 k/uL (3.8-10.6)
[2024-05-30 15:25] LABS: ALT 21 U/L (4-49); AST 24 U/L (17-59); African American GFR (CKD) >90 (>60 ml/min/1.73 sqM); Albumin 4.4 g/dL (3.5-5.0); Alkaline Phosphatase 112 U/L (38-126); Anion Gap 12 mmol/L; Blood Urea Nitrogen 18 mg/dL (9-20); C Reactive Protein 0.5 mg/dL (<1.0); Calcium 10.3 mg/dL (8.4-10.2); Carbon Dioxide 20 mmol/L (22-30); Chloride 105 mmol/L (98-107); Glucose 204 mg/dL (74-99); Non-African American GFR(CKD) 88 (>60 ml/min/1.73 sqM); Potassium 4.7 mmol/L (3.5-5.1); Sodium 137 mmol/L (137-145); Total Bilirubin 0.6 mg/dL (0.2-1.3)
--- NOTE | 2024-05-30 15:37 | ED ---
Wound/Laceration HPI - General Chief Complaint: Wound/Laceration Stated Complaint: Diabetic Sore R Toe Time Seen by Provider: 05/30/24 14:00 Source: patient, RN notes reviewed Mode of arrival: ambulatory Limitations: no limitations - History of Present Illness Initial Comments: 73 year old male presenting for evaluation of right great toe. States he fo llows with podiatry for ongoing right toe infection for the past 2 years. States he has been hospitalized several times and placed on several rounds of IV antibiotics for this. He is scheduled for a right toe amputation on 06-16-2024. Last night, patient's noticed the right ankle was warm to the touch. She called their research and development specialist office who recommended further evaluation in the ER. Patient reports the right ankle is no longer warm to the touch. Patient denies pain, fever, vomiting. States the toe looks baseline at this time. - Related Data Home Medications Medication Instructions Recorded Confirmed Potassium Chloride [Klor-Con 20] 20 meq PO DAILY 01/15/14 05/30/24 Pravastatin Sodium [Pravachol] 40 mg PO HS 01/15/14 05/30/24 allopurinoL [Zyloprim] 100 mg PO HS 07/28/15 05/30/24 Sertraline HCl [Zoloft] 200 mg PO DAILY 11/05/15 05/30/24 Rivaroxaban [Xarelto] 20 mg PO HS 07/27/17 05/30/24 Empagliflozin [Jardiance] 25 mg PO DAILY 06/10/21 05/30/24 Pantoprazole [Protonix] 40 mg PO BID 06/10/21 05/30/24 glipiZIDE [Glucotrol] 20 mg PO AC-BID 08/14/22 05/30/24 LORazepam [Ativan] 2 mg PO BID 08/11/23 05/30/24 Temazepam [Restoril] 7.5 mg PO HS 02/11/24 05/30/24 Ziprasidone [Geodon] 40 mg PO BID 03/14/24 05/30/24 Dicyclomine [Bentyl] 20 mg PO TID PRN 05/30/24 05/30/24 Insulin Glargine,Hum.rec.anlog 20 unit SQ DAILY 05/30/24 05/30/24 [Insulin Glargine Solostar] [place] Carbonate ER [Lithobid] 450 mg PO HS 05/30/24 05/30/24 Nystatin 100,000Unit/gm Cream 1 applic TOPICAL TID 05/30/24 05/30/24 [Mycostatin Cream] Previous Rx's Medication Instructions Recorded Fenofibrate [Lofibra] 160 mg PO DAILY 30 Days #30 tab 11/27/23 lisinopriL [Zestril] 10 mg PO DAILY #30 tab 02/14/24 Cephalexin [Keflex] 500 mg PO Q6HR 7 Days #28 cap 05/30/24 Allergies Allergy/AdvReac Type Severity Reaction Status Date / Time clopidogrel bisulfate Allergy Rash/Hives Verified 05/30/24 15:46 [From Plavix] Sulfa (Sulfonamide Allergy Rash/Hives Verified 05/30/24 15:46 Antibiotics) gabapentin AdvReac Aggression, Verified 05/30/24 15:46 anxiety, mood swings metformin AdvReac Diarrhea Verified 05/30/24 15:46 morphine AdvReac Hallucinati Verified 05/30/24 15:46 ons pregabalin [From Lyrica] AdvReac Aggression, Verified 05/30/24 15:46 anxiety, mood swings Review of Systems ROS Statement: Those systems with pertinent positive or pertinent negative responses have been documented in the HPI. ROS Other: All systems not noted in ROS Statement are negative. Past Medical History Past Medical History: Atrial Fibrillation, Coronary Artery Disease (CAD), Cancer, Heart Failure, CVA/TIA, Diabetes Mellitus, GERD/Reflux, Hyperlipidemia, Hypertension, Myocardial Infarction (SD), Sleep Apnea/CPAP/BIPAP, Thyroid Disorder Additional Past Medical History / Comment(s): gout, skin ca, colon cancer with resection and chemo (2016)., c-pap machine., ulcer on side of right great toe- receives wound tx ., BPH., gall bladder pain.buldge to c-spine, infection toe- needing amputation Last Myocardial Infarction Date:: 2006 History of Any Multi-Drug Resistant Organisms: C-DIFF, MRSA Date of last positivie culture/infection: MDRO Source:: right great toe Past Surgical History: Appendectomy, Bowel Resection, Heart Catheterization With Stent, Orthopedic Surgery Additional Past Surgical History / Comment(s): skin ca removed, lt shoulder surgery ,rt knee surgery, deviated septum surgery Past Anesthesia/Blood Transfusion Reactions: No Reported Reaction Date of Last Stent Placement:: 2006 Past Psychological History: Anxiety, Bipolar, Depression Smoking Status: Former smoker Past Alcohol Use History: Occasional Past Drug Use History: None Reported - Past Family History Father Family Medical History: Asthma, Hyperlipidemia Additional Family Medical History / Comment(s): at age 61. was a heavy smoker,prostate sx a week before he not sure what took him. Mother Family Medical History: Dementia Additional Family Medical History / Comment(s): at age 75 from alzheimers General Exam Limitations: no limitations General appearance: alert, in no apparent distress Head exam: Present: atraumatic, normocephalic, normal inspection Right Ankle exam: Present: normal inspection, full ROM. Absent: tenderness, swelling Foot/Toe exam: Present: full ROM. Absent: normal inspection (Grade 1 ulceration present on lateral aspect of right great toe with no active drainage, minimal surrounding erythema, no fluctuant masses), tenderness, swelling Neurovascular tendon exam: Present: no vascular compromise. Absent: pulse deficit (No warmth), abnormal cap refill, sensory deficit, extremity cold to touch Neurological exam: Present: alert, oriented X3 Psychiatric exam: Present: normal affect, normal mood Skin exam: Present: warm, dry, intact, normal color. Absent: rash Course Vital Signs 05/30/24 05/30/24 13:16 16:12 Temperature 97.5 F L Pulse Rate 74 71 Respiratory 18 18 Rate Blood Pressure 151/75 156/79 O2 Sat by Pulse 96 98 Oximetry Medical Decision Making - Medical Decision Making Was pt. sent in by a medical professional or institution (, PA, ORDNANCE TECHNICIAN, urgent care, hospital, or custodial...) When possible be specific @ -No Did you speak to anyone other than the patient for history (EMS, parent, family, police, friend...)? What history was obtained from this source @ -No Did you review nursing and triage notes (agree or disagree)? Why? @ -I reviewed and agree with nursing and triage notes Were old charts reviewed (outside hosp., previous admission, EMS record, old EKG, old radiological studies, urgent care reports/EKG's, custodial records)? Report findings @ -No old charts were reviewed Differential Diagnosis (chest pain, altered mental status, abdominal pain women, abdominal pain men, vaginal bleeding, weakness, fever, dyspnea, syncope, headache, dizziness, GI bleed, back pain, seizure, CVA, palpatations, mental health, musculoskeletal)? @ -Differential Musculoskeletal Muscular strain, contusion, ligament sprain, fracture, arthritis, septic arthritis, bursitis, cellulitis, muscle spasm, nerve compression, DVT, arterial occlusion, herpes zoster, electrolyte abnormality, tumor.... This is not meant to be in all inclusive list EKG interpreted by me (3pts min.). @ -None X-rays interpreted by me (1pt min.). @ -None done CT interpreted by me (1pt min.). @ -None done U/S interpreted by me (1pt. min.). @ -None done What testing was considered but not performed or refused? (CT, X-rays, U/S, labs)? Why? @ -None What meds were considered but not given or refused? Why? @ -None Did you discuss the management of the patient with other professionals (professionals i.e. , PA, ORDNANCE TECHNICIAN, lab, RT, psych nurse, social security specialist, capper machine operator, teacher, airconditioning drafting officer, case specialist)? Give summary @ -No Was smoking cessation discussed for >3mins.? @ -No Was critical care preformed (if so, how long)? @ -No Were there social determinants of health that impacted care today? How? (Homelessness, low income, unemployed, alcoholism, drug addiction, transportation, low edu. Level, literacy, decrease access to med. care, skilled nursing, rehab)? @ -No Was there de-escalation of care discussed even if they declined (Discuss DNR or withdrawal of care, Hospice)? DNR status @ -No What co-morbidities impacted this encounter? (DM, HTN, Smoking, COPD, CAD, Cancer, CVA, ARF, Chemo, Hep., AIDS, mental health diagnosis, sleep apnea, morbid obesity)? @ -None Was patient admitted / discharged? Hospital course, mention meds given and route, prescriptions, significant lab abnormalities, going to OR and other pertinent info. @ -Discharge. This is a 73-year-old male presenting for evaluation of right great toe infection. Patient has been battling right great toe infection for the past 2 years. Is scheduled for amputation on 127. Vital signs are within acceptable limits. Patient is neurovascularly intact. There is a grade 1 diabetic ulceration present on lateral aspect of right great toe. Lab work remarkable for lactic acid 2.2, otherwise unremarkable. White blood cell count is 7.7, CRP is 0.5. I believe patient can be discharged home with a prescription for oral Keflex. Patient and are agreeable to this plan. Appropriate return precautions and follow-up care discussed. Case was discussed with my ED attending Dr. lEmore. Undiagnosed new problem with uncertain prognosis? @ -No Drug Therapy requiring intensive monitoring for toxicity (Heparin, Nitro, Insulin, Cardizem)? @ -No Were any procedures done? @ -No Diagnosis/symptom? @ -Diabetic ulceration of right great toe Acute, or Chronic, or Acute on Chronic? @ -Acute Uncomplicated (without systemic symptoms) or Complicated (systemic symptoms)? @ -Uncomplicated Side effects of treatment? @ -No Exacerbation, Progression, or Severe Exacerbation? @ -No Poses a threat to life or bodily function? How? (Chest pain, USA, SD, pneumonia, PE, COPD, DKA, ARF, appy, cholecystitis, CVA, Diverticulitis, Homicidal, Suicidal, threat to staff... and all critical care pts) @ -Not at this time - Lab Data Result diagrams: 05/30/24 14:42 05/30/24 14:42 Lab Results 05/30/24 05/30/24 05/30/24 Range/Units 14:42 14:42 14:42 WBC 7.7 (3.8-10.6) k/uL RBC 5.91 H (4.30-5.90) m/uL Hgb 13.9 (13.0-17.5) gm/dL Hct 45.6 (39.0-53.0) % MCV 77.1 L (80.0-100.0) fL MCH 23.6 L (25.0-35.0) pg MCHC 30.5 L (31.0-37.0) g/dL RDW 16.8 H (11.5-15.5) % Plt Count 149 L (150-450) k/uL MPV 8.5 Neutrophils % 72 % Lymphocytes % 19 % Monocytes % 6 % Eosinophils % 2 % Basophils % 1 % Neutrophils # 5.5 (1.3-7.7) k/uL Lymphocytes # 1.4 (1.0-4.8) k/uL Monocytes # 0.5 (0-1.0) k/uL Eosinophils # 0.2 (0-0.7) k/uL Basophils # 0.1 (0-0.2) k/uL Hypochromasia Marked Poikilocytosis Slight Anisocytosis Slight Microcytosis Slight Sodium 137 (137-145) mmol/L Potassium 4.7 (3.5-5.1) mmol/L Chloride 105 (98-107) mmol/L Carbon Dioxide 20 L (22-30) mmol/L Anion Gap 12 mmol/L BUN 18 (9-20) mg/dL Creatinine 0.84 (0.66-1.25) mg/dL Est GFR (CKD-EPI)AfAm >90 (>60 ml/min/1.73 sqM) Est GFR (CKD-EPI)NonAf 88 (>60 ml/min/1.73 sqM) Glucose 204 H (74-99) mg/dL Plasma Lactic Acid Iván 2.2 H* (0.7-2.0) mmol/L Calcium 10.3 H (8.4-10.2) mg/dL Total Bilirubin 0.6 (0.2-1.3) mg/dL AST 24 (17-59) U/L ALT 21 (4-49) U/L Alkaline Phosphatase 112 (38-126) U/L C-Reactive Protein 0.5 (<1.0) mg/dL Total Protein 7.0 (6.3-8.2) g/dL Albumin 4.4 (3.5-5.0) g/dL Disposition Clinical Impression: Diabetic ulcer of toe Disposition: HOME SELF-CARE Condition: Stable Instructions (If sedation given, give patient instructions): Diabetic Foot Ulcers (ED) Additional Instructions: Take Keflex 4 times daily for 7 days. Follow-up with your research and development specialist next week. Please return to the Emergency Department if symptoms worsen or any other concerns. Prescriptions: Cephalexin [Keflex] 500 mg PO Q6HR 7 Days #28 cap Is patient prescribed a controlled substance at d/c from ED?: No Referrals: [facility] [Primary Care Provider] - 1-2 days Time of Disposition: 16:27
[2024-05-30 16:15] VITALS: BP 156/79; PULSE 71
[2024-05-30] MEDS: CEPHALEXIN 500MG STARTER PACK 4 CAP BTL PO STA (16:36)
== END 2024-05-30 16:40 | disposition home or self-care (01) ==
LOC: EC 13:13
DX: E11.621 Type 2 diabetes mellitus with foot ulcer (principal); Z86.73 Personal history of transient ischemic attack (TIA), and cerebral infarction without residual deficits; Z87.891 Personal history of nicotine dependence; Z88.5 Allergy status to narcotic agent; Z88.2 Allergy status to sulfonamides; Z88.8 Allergy status to other drugs, medicaments and biological substances
CPT/HCPCS: 36415; 80053; 83605; 85025; 86140; 99283

== ENCOUNTER 2024-06-02 16:39 | Emergency (ER) | payer OTHER ==
[2024-06-02 17:57] LABS: Anisocytosis Slight; Basophils % (A) 1 %; Eosinophils # (A) 0.2 k/uL (0-0.7); Eosinophils % (A) 2 %; HCT 49.7 % (39.0-53.0); HGB 15.5 gm/dL (13.0-17.5); Hypochromasia Marked; Lymphocytes # (A) 1.6 k/uL (1.0-4.8); Lymphocytes % (A) 18 %; MCH 23.8 pg (25.0-35.0); MCHC 31.2 g/dL (31.0-37.0); MCV 76.5 fL (80.0-100.0); Mean Platelet Volume 8.2; Microcytosis Slight; Monocytes # (A) 0.5 k/uL (0-1.0); Monocytes % (A) 5 %; Neutrophils # (A) 6.5 k/uL (1.3-7.7); Neutrophils % (A) 73 %; Platelet Count 166 k/uL (150-450); Poikilocytosis Slight; RBC 6.49 m/uL (4.30-5.90)
[2024-06-02 18:01] LABS: Appearance,Urine Clear (Clear); Bilirubin,Urine Negative (Negative); Blood,Urine Negative (Negative); Color,Urine Colorless; Glucose,Urine (UA) 4+ (Negative); Ketones,Urine Negative (Negative); Leukocyte Esterase,Urine Negative (Negative); Nitrite,Urine Negative (Negative); PH, Urine 5.5 (5.0-8.0); Protein,Urine Negative (Negative); Specific Gravity,Urine 1.023 (1.001-1.035); Urobilinogen,Urine <2.0 mg/dL (<2.0)
--- NOTE | 2024-06-02 18:05 | XR ---
EXAMINATION TYPE: XR KUB DATE OF EXAM: 06/02/2024 5:54 PM COMPARISON: 03/22/2024 CLINICAL INDICATION: Male, 73 years old with history of abdominal pain; [facility] TECHNIQUE: One radiographic view of the abdomen was obtained. FINDINGS: The bowel gas pattern is nonspecific without dilated loops of small or large bowel. . Fecal material and gas are demonstrated throughout the colon and rectum. There is no evidence for organome luke or pneumoperitoneum. Degeneration changes of the spine. No acute osseous process. No abnormal calcifications are present. IMPRESSION: Nonspecific bowel gas pattern without radiographic evidence for acute process. [facility], , 06/02/2024 6:03 PM
[2024-06-02 18:21] LABS: ALT 25 U/L (4-49); AST 31 U/L (17-59); African American GFR (CKD) >90 (>60 ml/min/1.73 sqM); Albumin 5.1 g/dL (3.5-5.0); Alkaline Phosphatase 115 U/L (38-126); Amylase 80 U/L (30-110); Anion Gap 15 mmol/L; Blood Urea Nitrogen 17 mg/dL (9-20); Calcium 11.1 mg/dL (8.4-10.2); Carbon Dioxide 22 mmol/L (22-30); Chloride 102 mmol/L (98-107); Glucose 156 mg/dL (74-99); Lipase 152 U/L (23-300); Non-African American GFR(CKD) 87 (>60 ml/min/1.73 sqM); Potassium 4.5 mmol/L (3.5-5.1); Sodium 139 mmol/L (137-145); Total Bilirubin 0.7 mg/dL (0.2-1.3); Total Protein 8.6 g/dL (6.3-8.2)
[2024-06-02] MEDS: KETOROLAC 15 MG/ML 1 ML VIAL IVP STA (18:27)
--- NOTE | 2024-06-02 18:27 | ED ---
General Adult HPI - General Chief complaint: Abdominal Pain Stated complaint: Abd Pain Time Seen by Provider: 06/02/24 16:50 Source: patient, EMS, RN notes reviewed, old records reviewed Mode of arrival: EMS Limitations: no limitations - History of Present Illness Initial comments: This is a 73-year-old male who presents emergency department complaining of abdominal pain. Patient states it started back in October when he had C. difficile and it has been there ever since. Patient's stated that it got worse since Sunday when he started taking antibiotics for a foot infection. Patient states its diffuse cramping but its mostly diffuse in the lower abdomen. Patient denies any dysuria hematuria urinary frequency. Patient denies any fever chills or cough. Patient has any back pain. Patient denies any chest pain or difficulty breathing. - Related Data Home Medications Medication Instructions Recorded Confirmed Potassium Chloride [Klor-Con 20] 20 meq PO DAILY 01/15/14 05/30/24 Pravastatin Sodium [Pravachol] 40 mg PO HS 01/15/14 05/30/24 allopurinoL [Zyloprim] 100 mg PO HS 07/28/15 05/30/24 Sertraline HCl [Zoloft] 200 mg PO DAILY 11/05/15 05/30/24 Rivaroxaban [Xarelto] 20 mg PO HS 07/27/17 05/30/24 Empagliflozin [Jardiance] 25 mg PO DAILY 06/10/21 05/30/24 Pantoprazole [Protonix] 40 mg PO BID 06/10/21 05/30/24 glipiZIDE [Glucotrol] 20 mg PO AC-BID 08/14/22 05/30/24 LORazepam [Ativan] 2 mg PO BID 08/11/23 05/30/24 Temazepam [Restoril] 7.5 mg PO HS 02/11/24 05/30/24 Ziprasidone [Geodon] 40 mg PO BID 03/14/24 05/30/24 Dicyclomine [Bentyl] 20 mg PO TID PRN 05/30/24 05/30/24 Insulin Glargine,Hum.rec.anlog 20 unit SQ DAILY 05/30/24 05/30/24 [Insulin Glargine Solostar] Economy Carbonate ER [Lithobid] 450 mg PO HS 05/30/24 05/30/24 Nystatin 100,000Unit/gm Cream 1 applic TOPICAL TID 05/30/24 05/30/24 [Mycostatin Cream] Previous Rx's Medication Instructions Recorded Fenofibrate [Lofibra] 160 mg PO DAILY 30 Days #30 tab 11/27/23 lisinopriL [Zestril] 10 mg PO DAILY #30 tab 02/14/24 Cephalexin [Keflex] 500 mg PO Q6HR 7 Days #28 cap 05/30/24 Allergies Allergy/AdvReac Type Severity Reaction Status Date / Time clopidogrel bisulfate Allergy Rash/Hives Verified 05/30/24 15:46 [From Plavix] Sulfa (Sulfonamide Allergy Rash/Hives Verified 05/30/24 15:46 Antibiotics) gabapentin AdvReac Aggression, Verified 05/30/24 15:46 anxiety, mood swings metformin AdvReac Diarrhea Verified 05/30/24 15:46 morphine AdvReac Hallucinati Verified 05/30/24 15:46 ons pregabalin [From Lyrica] AdvReac Aggression, Verified 05/30/24 15:46 anxiety, mood swings Review of Systems ROS Statement: Those systems with pertinent positive or pertinent negative responses have been documented in the HPI. ROS Other: All systems not noted in ROS Statement are negative. Past Medical History Past Medical History: Atrial Fibrillation, Coronary Artery Disease (CAD), Cancer, Heart Failure, CVA/TIA, Diabetes Mellitus, GERD/Reflux, Hyperlipidemia, Hypertension, Myocardial Infarction ([place]), Sleep Apnea/CPAP/BIPAP, Thyroid Disorder Additional Past Medical History / Comment(s): gout, skin ca, colon cancer with resection and chemo (2016)., c-pap machine., ulcer on side of right great toe- receives wound tx ., BPH., gall bladder pain.buldge to c-spine, infection toe- needing amputation Last Myocardial Infarction Date:: 2006 History of Any Multi-Drug Resistant Organisms: C-DIFF, MRSA Date of last positivie culture/infection: MDRO Source:: right great toe Past Surgical History: Appendectomy, Bowel Resection, Heart Catheterization With Stent, Orthopedic Surgery Additional Past Surgical History / Comment(s): skin ca removed, lt shoulder surgery ,rt knee surgery, deviated septum surgery Past Anesthesia/Blood Transfusion Reactions: No Reported Reaction Date of Last Stent Placement:: 2006 Past Psychological History: Anxiety, Bipolar, Depression Smoking Status: Former smoker Past Alcohol Use History: Occasional Past Drug Use History: None Reported - Past Family History Father Family Medical History: Asthma, Hyperlipidemia Additional Family Medical History / Comment(s): at age 61. was a heavy smoker,prostate sx a week before he not sure what took him. Mother Family Medical History: Dementia Additional Family Medical History / Comment(s): at age 75 from alzheimers General Exam - General Exam Comments Initial Comments: GENERAL: Patient is well-developed and well-nourished. Patient is nontoxic and well- hydrated and is in mild distress. ENT: Neck is soft and supple. No significant lymphadenopathy is noted. Oropharynx is clear. Moist mucous membranes. Neck has full range of motion without eliciting any pain. EYES: The sclera were anicteric and conjunctiva were pink and moist. Extraocular movements were intact and pupils were equal round and reactive to light. Eyelids were unremarkable. PULMONARY: Unlabored respirations. Good breath sounds bilaterally. No audible rales rhonchi or wheezing was noted. CARDIOVASCULAR: There is a regular rate and rhythm without any murmurs gallops or rubs. ABDOMEN: Soft and nontender with normal bowel sounds. Patient claims he has a lot of tenderness in his belly but on examination no area of tenderness with palpation SKIN: Skin is clear with no lesions or rashes and otherwise unremarkable. NEUROLOGIC: Patient is alert and oriented x3. Cranial nerves II through XII are grossly intact. Motor and sensory are also intact. Normal speech, volume and content. Symmetrical smile. MUSCULOSKELETAL: Normal extremities with adequate strength and full range of motion. LYMPHATICS: No significant lymphadenopathy is noted PSYCHIATRIC: Normal psychiatric evaluation. Limitations: no limitations Course Vital Signs 06/02/24 16:41 Temperature 98.1 F Pulse Rate 65 Respiratory 20 Rate Blood Pressure 168/85 O2 Sat by Pulse 98 Oximetry Medical Decision Making - Medical Decision Making Was pt. sent in by a medical professional or institution (, NERY, SENIOR UI DEVELOPER, urgent care, hospital, or fpc...) When possible be specific @ -No Did you speak to anyone other than the patient for history (EMS, parent, family, police, friend...)? What history was obtained from this source @ -No Did you review nursing and triage notes (agree or disagree)? Why? @ -I reviewed and agree with nursing and triage notes Were old charts reviewed (outside hosp., previous admission, EMS record, old E KG, old radiological studies, urgent care reports/EKG's, fpc records)? Report findings @ -No old charts were reviewed Differential Diagnosis? @ -Differential Abdominal Pain Men: Appendicitis, cholecystitis, diverticulosis, ischemic bowel, pancreatitis, hepatitis, UTI, gastroenteritis, AAA, incarcerated hernia, bowel obstruction, constipation, inflammatory bowel, hepatitis, peptic ulcer disease, splenic infarction, perforated viscus, testicular torsion, this is not meant to be an all-inclusive list EKG interpreted by me (3pts min.). @ -As above X-rays interpreted by me (1pt min.). @ -None done CT interpreted by me (1pt min.). @ -CT scan shows no acute abnormality U/S interpreted by me (1pt. min.). @ -None done What testing was considered but not performed or refused? (CT, X-rays, U/S, labs)? Why? @ -None What meds were considered but not given or refused? Why? @ -None Did you discuss the management of the patient with other professionals (professionals i.e. , PA, SENIOR UI DEVELOPER, lab, RT, psych nurse, administrator social welfare, compound coating machine offbearer, teacher, administrative services officer, case managers)? Give summary @ -No Was smoking cessation discussed for >3mins.? @ -No Was critical care preformed (if so, how long)? @ -No Were there social determinants of health that impacted care today? How? (Homelessness, low income, unemployed, alcoholism, drug addiction, transportation, low edu. Level, literacy, decrease access to med. care, skilled nursing, rehab)? @ -No Was there de-escalation of care discussed even if they declined (Discuss DNR or withdrawal of care, Hospice)? DNR status @ -No What co-morbidities impacted this encounter? (DM, HTN, Smoking, COPD, CAD, Cancer, CVA, ARF, Chemo, Hep., AIDS, mental health diagnosis, sleep apnea, morbid obesity)? @ -None Was patient admitted / discharged? Hospital course, mention meds given and route, prescriptions, significant lab abnormalities, going to OR and other pertinent info. @ -Discussed with patient had a bladder scanner and it showed only [address] of the abdomen showed no acute abnormality. Patient's lab work showed no obvious reason for the patient's pain. Patient states the pain has been ongoing for months however and he will follow-up with his primary medical care doctor. Undiagnosed new problem with uncertain prognosis? @ -No Drug Therapy requiring intensive monitoring for toxicity (Heparin, Nitro, Insulin, Cardizem)? @ -No Were any procedures done? @ -No Diagnosis/symptom? @ -Abdominal pain Acute, or Chronic, or Acute on Chronic? @ -Acute on chronic Uncomplicated (without systemic symptoms) or Complicated (systemic symptoms)? @ -Complicated Side effects of treatment? @ -No Exacerbation, Progression, or Severe Exacerbation? @ -No Poses a threat to life or bodily function? How? (Chest pain, [place], [place], pneumonia, PE, COPD, DKA, ARF, appy, cholecystitis, CVA, Diverticulitis, Homicidal, Suicidal, threat to staff... and all critical care pts) @ -No - Lab Data Result diagrams: 06/02/24 17:27 06/02/24 17:27 Lab Results 06/02/24 06/02/24 06/02/24 Range/Units 17:27 17:27 17:27 WBC 9.0 (3.8-10.6) k/uL RBC 6.49 H (4.30-5.90) m/uL Hgb 15.5 (13.0-17.5) gm/dL Hct 49.7 (39.0-53.0) % MCV 76.5 L (80.0-100.0) fL MCH 23.8 L (25.0-35.0) pg MCHC 31.2 (31.0-37.0) g/dL RDW 17.0 H (11.5-15.5) % Plt Count 166 (150-450) k/uL MPV 8.2 Neutrophils % 73 % Lymphocytes % 18 % Monocytes % 5 % Eosinophils % 2 % Basophils % 1 % Neutrophils # 6.5 (1.3-7.7) k/uL Lymphocytes # 1.6 (1.0-4.8) k/uL Monocytes # 0.5 (0-1.0) k/uL Eosinophils # 0.2 (0-0.7) k/uL Basophils # 0.0 (0-0.2) k/uL Hypochromasia Marked Poikilocytosis Slight Anisocytosis Slight Microcytosis Slight Sodium 139 (137-145) mmol/L Potassium 4.5 (3.5-5.1) mmol/L Chloride 102 (98-107) mmol/L Carbon Dioxide 22 (22-30) mmol/L Anion Gap 15 mmol/L BUN 17 (9-20) mg/dL Creatinine 0.88 (0.66-1.25) mg/dL Est GFR (CKD-EPI)AfAm >90 (>60 ml/min/1.73 sqM) Est GFR (CKD-EPI)NonAf 87 (>60 ml/min/1.73 sqM) Glucose 156 H (74-99) mg/dL Plasma Lactic Acid Iván (0.7-2.0) mmol/L Calcium 11.1 H (8.4-10.2) mg/dL Total Bilirubin 0.7 (0.2-1.3) mg/dL AST 31 (17-59) U/L ALT 25 (4-49) U/L Alkaline Phosphatase 115 (38-126) U/L Total Protein 8.6 H (6.3-8.2) g/dL Albumin 5.1 H (3.5-5.0) g/dL Amylase 80 (30-110) U/L Lipase 152 (23-300) U/L Urine Color Colorless Urine Appearance Clear (Clear) Urine pH 5.5 (5.0-8.0) Ur Specific [place] 1.023 (1.001-1.035) Urine Protein Negative (Negative) Urine Glucose (UA) 4+ H (Negative) Urine Ketones Negative (Negative) Urine Blood Negative (Negative) Urine Nitrite Negative (Negative) Urine Bilirubin Negative (Negative) Urine Urobilinogen <2.0 (<2.0) mg/dL Ur Leukocyte Esterase Negative (Negative) 06/02/24 Range/Units 17:27 WBC (3.8-10.6) k/uL RBC (4.30-5.90) m/uL Hgb (13.0-17.5) gm/dL Hct (39.0-53.0) % MCV (80.0-100.0) fL MCH (25.0-35.0) pg MCHC (31.0-37.0) g/dL RDW (11.5-15.5) % Plt Count (150-450) k/uL MPV Neutrophils % % Lymphocytes % % Monocytes % % Eosinophils % % Basophils % % Neutrophils # (1.3-7.7) k/uL Lymphocytes # (1.0-4.8) k/uL Monocytes # (0-1.0) k/uL Eosinophils # (0-0.7) k/uL Basophils # (0-0.2) k/uL Hypochromasia Poikilocytosis Anisocytosis Microcytosis Sodium (137-145) mmol/L Potassium (3.5-5.1) mmol/L Chloride (98-107) mmol/L Carbon Dioxide (22-30) mmol/L Anion Gap mmol/L BUN (9-20) mg/dL Creatinine (0.66-1.25) mg/dL Est GFR (CKD-EPI)AfAm (>60 ml/min/1.73 sqM) Est GFR (CKD-EPI)NonAf (>60 ml/min/1.73 sqM) Glucose (74-99) mg/dL Plasma Lactic Acid Iván 2.5 H* (0.7-2.0) mmol/L Calcium (8.4-10.2) mg/dL Total Bilirubin (0.2-1.3) mg/dL AST (17-59) U/L ALT (4-49) U/L Alkaline Phosphatase (38-126) U/L Total Protein (6.3-8.2) g/dL Albumin (3.5-5.0) g/dL Amylase (30-110) U/L Lipase (23-300) U/L Urine Color Urine Appearance (Clear) Urine pH (5.0-8.0) Ur Specific [place] (1.001-1.035) Urine Protein (Negative) Urine Glucose (UA) (Negative) Urine Ketones (Negative) Urine Blood (Negative) Urine Nitrite (Negative) Urine Bilirubin (Negative) Urine Urobilinogen (<2.0) mg/dL Ur Leukocyte Esterase (Negative) Disposition Clinical Impression: Abdominal pain Disposition: HOME SELF-CARE Condition: Good Is patient prescribed a controlled substance at d/c from ED?: No Referrals: [facility],Clinic [Primary Care Provider] - 1-2 days Time of Disposition: 20:03
[2024-06-02] MEDS: HYDROmorphone 0.5 MG/0.5 ML SYRINGE IVP STA (18:28)
--- NOTE | 2024-06-02 19:03 | CT ---
EXAMINATION TYPE: CT abdomen pelvis w con DATE OF EXAM: 06/02/2024 6:50 PM COMPARISON: CT abdomen pelvis most recent from 01/08/2017. CLINICAL INDICATION: Male, 73 years old with history of Diffuse abdominal pain; abdominal pain, hx of colon ca TECHNIQUE: Axial CT abdomen pelvis w con;Sagittal and coronal reformats were created on a separate w orkstation. Contrast used:100 mL of Isovue 300 with IV Contrast, (none if empty) Oral contrast used: without Oral Contrast (none if empty) CT DLP: 2047.4 mGycm, Automated exposure control for dose reduction was used. FINDINGS: LOWER CHEST: Scattered tiny nodules throughout the lungs largest in the left lower lung in the subple ural region measuring 5 mm in the right lower lung measuring 5 mm. No focal consolidation, pneumothor ax or pleural effusion. ABDOMEN LIVER: Low-attenuation to the liver parenchyma., Lobe hypertrophy changes. Subtle nodularity to the l iver which is progressed since 2017. GALLBLADDER AND BILE DUCTS: Unremarkable. PANCREAS: Unremarkable. SPLEEN: Scattered calcified granulomas. ADRENAL GLANDS: Indeterminate left 9 mm nodule noted adrenal nodule. This is stable back to 01/08/2017 . KIDNEYS AND URETERS: No evidence of hydronephrosis or renal calculus. The ureters are unremarkable. PELVIS BLADDER: No evidence for wall thickening or mass given limitations of exam. There may be mild circumf erential wall thickening. REPRODUCTIVE: Unremarkable. ABDOMEN & PELVIS STOMACH AND BOWEL: No evidence of bowel obstruction. Redundant sigmoid colon. Scattered colonic diver ticula. Postsurgical changes of the ascending colon. PERITONEUM/RETROPERITONEUM: No evidence of pneumoperitoneum or free fluid. VASCULATURE: No evidence of aortic aneurysm. MUSCULOSKELETAL: No acute osseous abnormalities LYMPH NODES: No gross evidence for lymphadenopathy. SOFT TISSUE/ABDOMINAL WALL: Unremarkable IMPRESSION: 1. Postsurgical changes ankle without evidence for lymphadenopathy or evidence for recurrent disease . Scattered pulmonary nodules are present but are thought to be chronic granulomatous change. CT ches t surveillance should be considered if there is concern for metastatic disease. Nodule seen dating ba to 2016. 2. No evidence for acute intra-abdominal process. 3. Hepatic steatosis subtle nodularity to liver correlate for underlying cirrhosis. 4. Left adrenal indeterminate nodule stable back to at least 01/08/2017. 5. Simple appearing bilateral renal cysts. 6. Scattered colonic diverticula. 7. Prostatomegaly, correlate with serum PSA. 8. Prominent bladder lira, correlate with urinalysis to rule out cystitis. Possibly secondary to ch ronic bladder outlet obstruction. [facility], , 06/02/2024 7:00 PM
[2024-06-02 20:30] VITALS: BP 121/79; PULSE 67; RESP 16; TEMP 97.9
== END 2024-06-02 20:30 | disposition home or self-care (01) ==
LOC: EC 16:39
DX: R10.9 Unspecified abdominal pain (principal); Z87.891 Personal history of nicotine dependence; Z88.2 Allergy status to sulfonamides; Z88.5 Allergy status to narcotic agent; Z88.8 Allergy status to other drugs, medicaments and biological substances
CPT/HCPCS: 36415; 80053; 82150; 83605; 83690; 85025; 81003; 74018; 74177; 99284; 96374; 96375; J1885; J1171; Q9967

== ENCOUNTER 2024-07-19 10:11 | Inpatient (IN) | payer OTHER, MEDICARE ==
--- NOTE | 2024-07-19 10:27 | ED ---
General Adult HPI - General Chief complaint: Abdominal Pain Stated complaint: Abd pain Time Seen by Provider: 07/19/24 10:15 Source: patient, EMS, RN notes reviewed, old records reviewed Mode of arrival: EMS Limitations: no limitations - History of Present Illness Initial comments: This is a 73-year-old male who presents to the emergency department stating that a month ago he had C. difficile and he was treated and his bowel movements got considerably better. Patient states last night was that he started having profuse diarrhea and abdominal pain and he states the symptoms were consistent with the symptoms he had with C. difficile. Patient states the original C. difficile was caused from him being on antibiotics for a toe infection. Patient denies any fevers chills. Patient has any back pain. Patient denies any chest pain difficulty breathing shortness of breath. - Related Data Home Medications Medication Instructions Recorded Confirmed Potassium Chloride [Klor-Con 20] 20 meq PO DAILY 01/15/14 05/30/24 Pravastatin Sodium [Pravachol] 40 mg PO HS 01/15/14 05/30/24 allopurinoL [Zyloprim] 100 mg PO HS 07/28/15 05/30/24 Sertraline HCl [Zoloft] 200 mg PO DAILY 11/05/15 05/30/24 Rivaroxaban [Xarelto] 20 mg PO HS 07/27/17 05/30/24 Empagliflozin [Jardiance] 25 mg PO DAILY 06/10/21 05/30/24 Pantoprazole [Protonix] 40 mg PO BID 06/10/21 05/30/24 glipiZIDE [Glucotrol] 20 mg PO AC-BID 08/14/22 05/30/24 LORazepam [Ativan] 2 mg PO BID 08/11/23 05/30/24 Temazepam [Restoril] 7.5 mg PO HS 02/11/24 05/30/24 Ziprasidone [Geodon] 40 mg PO BID 03/14/24 05/30/24 Dicyclomine [Bentyl] 20 mg PO TID PRN 05/30/24 05/30/24 Insulin Glargine,Hum.rec.anlog 20 unit SQ DAILY 05/30/24 05/30/24 [Insulin Glargine Solostar] [place] Carbonate ER [Lithobid] 450 mg PO HS 05/30/24 05/30/24 Nystatin 100,000Unit/gm Cream 1 applic TOPICAL TID 05/30/24 05/30/24 [Mycostatin Cream] Previous Rx's Medication Instructions Recorded Fenofibrate [Lofibra] 160 mg PO DAILY 30 Days #30 tab 11/27/23 lisinopriL [Zestril] 10 mg PO DAILY #30 tab 02/14/24 Cephalexin [Keflex] 500 mg PO Q6HR 7 Days #28 cap 05/30/24 Allergies Allergy/AdvReac Type Severity Reaction Status Date / Time clopidogrel bisulfate Allergy Rash/Hives Verified 07/19/24 10:22 [From Plavix] Sulfa (Sulfonamide Allergy Rash/Hives Verified 07/19/24 10:22 Antibiotics) gabapentin AdvReac Aggression, Verified 07/19/24 10:22 anxiety, mood swings metformin AdvReac Diarrhea Verified 07/19/24 10:22 morphine AdvReac Hallucinati Verified 07/19/24 10:22 ons pregabalin [From Lyrica] AdvReac Aggression, Verified 07/19/24 10:22 anxiety, mood swings Review of Systems ROS Statement: Those systems with pertinent positive or pertinent negative responses have been documented in the HPI. ROS Other: All systems not noted in ROS Statement are negative. Past Medical History Past Medical History: Atrial Fibrillation, Coronary Artery Disease (CAD), Cancer, Heart Failure, CVA/TIA, Diabetes Mellitus, GERD/Reflux, Hyperlipidemia, Hypertension, Myocardial Infarction (VT), Sleep Apnea/CPAP/BIPAP, Thyroid Di sorder Additional Past Medical History / Comment(s): gout, skin ca, colon cancer with resection and chemo (2016)., c-pap machine., ulcer on side of right great toe- receives wound tx ., BPH., gall bladder pain.buldge to c-spine, infection toe- needing amputation Last Myocardial Infarction Date:: 2006 History of Any Multi-Drug Resistant Organisms: C-DIFF, MRSA Date of last positivie culture/infection: MDRO Source:: right great toe Past Surgical History: Appendectomy, Bowel Resection, Heart Catheterization With Stent, Orthopedic Surgery Additional Past Surgical History / Comment(s): skin ca removed, lt shoulder surgery ,rt knee surgery, deviated septum surgery Past Anesthesia/Blood Transfusion Reactions: No Reported Reaction Date of Last Stent Placement:: 2006 Past Psychological History: Anxiety, Bipolar, Depression Smoking Status: Current some day smoker, Former smoker Past Alcohol Use History: Occasional Past Drug Use History: None Reported - Past Family History Father Family Medical History: Asthma, Hyperlipidemia Additional Family Medical History / Comment(s): at age 61. was a heavy smoker,prostate sx a week before he not sure what took him. Mother Family Medical History: Dementia Additional Family Medical History / Comment(s): at age 75 from alzheimers General Exam - General Exam Comments Initial Comments: GENERAL: Patient is well-developed and well-nourished. Patient is nontoxic and well- hydrated and is in mild distress. ENT: Neck is soft and supple. No significant lymphadenopathy is noted. Oropharynx is clear. Moist mucous membranes. Neck has full range of motion without eliciting any pain. EYES: The sclera were anicteric and conjunctiva were pink and moist. Extraocular movements were intact and pupils were equal round and reactive to light. Eyelids were unremarkable. PULMONARY: Unlabored respirations. Good breath sounds bilaterally. No audible rales rhonchi or wheezing was noted. CARDIOVASCULAR: There is a regular rate and rhythm without any murmurs gallops or rubs. ABDOMEN: Mild lower abdominal tenderness SKIN: Skin is clear with no lesions or rashes and otherwise unremarkable. NEUROLOGIC: Patient is alert and oriented x3. Cranial nerves II through XII are grossly intact. Motor and sensory are also intact. Normal speech, volume and content. Symmetrical smile. MUSCULOSKELETAL: Normal extremities with adequate strength and full range of motion. LYMPHATICS: No significant lymphadenopathy is noted PSYCHIATRIC: Normal psychiatric evaluation. Limitations: no limitations Course Vital Signs 07/19/24 07/19/24 10:13 11:56 Temperature 98.1 F Pulse Rate 80 87 Respiratory 18 20 Rate Blood Pressure 184/94 151/83 O2 Sat by Pulse 98 98 Oximetry Medical Decision Making - Medical Decision Making Was pt. sent in by a medical professional or institution (, PA, TELECOM ENGINEER, urgent care, hospital, or skilled nursing...) When possible be specific @ -No Did you speak to anyone other than the patient for history (EMS, parent, family, police, friend...)? What history was obtained from this source @ -No Did you review nursing and triage notes (agree or disagree)? Why? @ -I reviewed and agree with nursing and triage notes Were old charts reviewed (outside hosp., previous admission, EMS record, old EKG, old radiological studies, urgent care reports/EKG's, skilled nursing records)? Report findings @ -No old charts were reviewed Differential Diagnosis? @ -C. difficile, gastroenteritis, acute diarrhea, this is not an all-inclusive list EKG interpreted by me (3pts min.). @ -As above X-rays interpreted by me (1pt min.). @ -None done CT interpreted by me (1pt min.). @ -CT shows no acute abnormality U/S interpreted by me (1pt. min.). @ -None done What testing was considered but not performed or refused? (CT, X-rays, U/S, labs)? Why? @ -None What meds were considered but not given or refused? Why? @ -None Did you discuss the management of the patient with other professionals (professionals i.e. , PA, TELECOM ENGINEER, lab, RT, psych nurse, social scientist, sausage mixer, teacher, postal sorting officer, oil field caser)? Give summary @ -I spoke with sound physicians agreed to admit the patient Was smoking cessation discussed for >3mins.? @ -No Was critical care preformed (if so, how long)? @ -No Were there social determinants of health that impacted care today? How? (Homelessness, low income, unemployed, alcoholism, drug addiction, transportation, low edu. Level, literacy, decrease access to med. care, penitentiary, rehab)? @ -No Was there de-escalation of care discussed even if they declined (Discuss DNR or withdrawal of care, Hospice)? DNR status @ -No What co-morbidities impacted this encounter? (DM, HTN, Smoking, COPD, CAD, Cancer, CVA, ARF, Chemo, Hep., AIDS, mental health diagnosis, sleep apnea, morbid obesity)? @ -None Was patient admitted / discharged? Hospital course, mention meds given and route, prescriptions, significant lab abnormalities, going to OR and other pertinent info. @ -Patient had C. difficile and was started on vancomycin orally. I spoke with sound physicians agreed to admit the patient admit the patient wrote admitting orders Undiagnosed new problem with uncertain prognosis? @ -No Drug Therapy requiring intensive monitoring for toxicity (Heparin, Nitro, Insulin, Cardizem)? @ -No Were any procedures done? @ -No Diagnosis/symptom? @ -C. difficile Acute, or Chronic, or Acute on Chronic? @ -Acute Uncomplicated (without systemic symptoms) or Complicated (systemic symptoms)? @ -Comp Side effects of treatment? @ -No Exacerbation, Progression, or Severe Exacerbation? @ -No Poses a threat to life or bodily function? How? (Chest pain, USA, VT, pneumonia, PE, COPD, DKA, ARF, appy, cholecystitis, CVA, Diverticulitis, Homicidal, Suicidal, threat to staff... and all critical care pts) @ -Yes this can lead to sepsis and endorgan dysfunction - Lab Data Result diagrams: 07/19/24 10:26 07/19/24 10: Lab Results 07/19/24 07/19/24 07/19/24 Range/Units 10:26 10: 10:26 WBC 15.0 H (3.8-10.6) k/uL RBC 6.71 H (4.30-5.90) m/uL Hgb 15.4 (13.0-17.5) gm/dL Hct 53.1 H (39.0-53.0) % MCV 79.0 L (80.0-100.0) fL MCH 22.9 L (25.0-35.0) pg MCHC 29.0 L (31.0-37.0) g/dL RDW 18.7 H (11.5-15.5) % Plt Count 192 (150-450) k/uL MPV 8.3 Neutrophils % 92 % Lymphocytes % 3 % Monocytes % 3 % Eosinophils % 2 % Basophils % 0 % Neutrophils # 13.8 H (1.3-7.7) k/uL Lymphocytes # 0.4 L (1.0-4.8) k/uL Monocytes # 0.5 (0-1.0) k/uL Eosinophils # 0.2 (0-0.7) k/uL Basophils # 0.0 (0-0.2) k/uL Hypochromasia Marked Anisocytosis Slight Microcytosis Slight Sodium 139 (137-145) mmol/L Potassium 4.6 (3.5-5.1) mmol/L Chloride 103 (98-107) mmol/L Carbon Dioxide 22 (22-30) mmol/L Anion Gap 14 mmol/L BUN 16 (9-20) mg/dL Creatinine 0.96 (0.66-1.25) mg/dL Est GFR (CKD-EPI)AfAm >90 (>60 ml/min/1.73 sqM) Est GFR (CKD-EPI)NonAf 80 (>60 ml/min/1.73 sqM) Glucose 178 H (74-99) mg/dL Calcium 10.7 H (8.4-10.2) mg/dL Total Bilirubin 0.8 (0.2-1.3) mg/dL AST 25 (17-59) U/L ALT 22 (4-49) U/L Alkaline Phosphatase 73 (38-126) U/L Total Protein 7.8 (6.3-8.2) g/dL Albumin 4.8 (3.5-5.0) g/dL Amylase 85 (30-110) U/L Lipase 120 (23-300) U/L Urine Color Light Yellow Urine Appearance Clear (Clear) Urine pH 5.0 (5.0-8.0) Ur Specific [place] 1.032 (1.001-1.035) Urine Protein Trace H (Negative) Urine Glucose (UA) 4+ H (Negative) Urine Ketones Negative (Negative) Urine Blood Negative (Negative) Urine Nitrite Negative (Negative) Urine Bilirubin Negative (Negative) Urine Urobilinogen <2.0 (<2.0) mg/dL Ur Leukocyte Esterase Trace H (Negative) Urine RBC 2 (0-5) /hpf Urine WBC 2 (0-5) /hpf Ur Squamous Epith Cells 3 (0-4) /hpf Urine Bacteria Rare H (None) /hpf Urine Mucus Rare H (None) /hpf Urine Yeast (Budding) Rare H (None) /hpf C. difficile (EIA) Intrp (Negative) 07/19/24 Range/Units 11:49 WBC (3.8-10.6) k/uL RBC (4.30-5.90) m/uL Hgb (13.0-17.5) gm/dL Hct (39.0-53.0) % MCV (80.0-100.0) fL MCH (25.0-35.0) pg MCHC (31.0-37.0) g/dL RDW (11.5-15.5) % Plt Count (150-450) k/uL MPV Neutrophils % % Lymphocytes % % Monocytes % % Eosinophils % % Basophils % % Neutrophils # (1.3-7.7) k/uL Lymphocytes # (1.0-4.8) k/uL Monocytes # (0-1.0) k/uL Eosinophils # (0-0.7) k/uL Basophils # (0-0.2) k/uL Hypochromasia Anisocytosis Microcytosis Sodium (137-145) mmol/L Potassium (3.5-5.1) mmol/L Chloride (98-107) mmol/L Carbon Dioxide (22-30) mmol/L Anion Gap mmol/L BUN (9-20) mg/dL Creatinine (0.66-1.25) mg/dL Est GFR (CKD-EPI)AfAm (>60 ml/min/1.73 sqM) Est GFR (CKD-EPI)NonAf (>60 ml/min/1.73 sqM) Glucose (74-99) mg/dL Calcium (8.4-10.2) mg/dL Total Bilirubin (0.2-1.3) mg/dL AST (17-59) U/L ALT (4-49) U/L Alkaline Phosphatase (38-126) U/L Total Protein (6.3-8.2) g/dL Albumin (3.5-5.0) g/dL Amylase (30-110) U/L Lipase (23-300) U/L Urine Color Urine Appearance (Clear) Urine pH (5.0-8.0) Ur Specific [place] (1.001-1.035) Urine Protein (Negative) Urine Glucose (UA) (Negative) Urine Ketones (Negative) Urine Blood (Negative) Urine Nitrite (Negative) Urine Bilirubin (Negative) Urine Urobilinogen (<2.0) mg/dL Ur Leukocyte Esterase (Negative) Urine RBC (0-5) /hpf Urine WBC (0-5) /hpf Ur Squamous Epith Cells (0-4) /hpf Urine Bacteria (None) /hpf Urine Mucus (None) /hpf Urine Yeast (Budding) (None) /hpf C. difficile (EIA) Intrp Positive A (Negative) Disposition Clinical Impression: Clostridium difficile colitis Disposition: ADMITTED IP TO THIS HOSP Referrals: None,Stated [REFERRING] - 1-2 days Time of Disposition: 13:39
[2024-07-19] MEDS: SODIUM CHLORIDE 0.9% 1,000 ML IV STA (10:31)
[2024-07-19] MEDS: HYDROmorphone 0.5 MG/0.5 ML SYRINGE IVP STA ×2 (10:31→11:58)
[2024-07-19 10:41] LABS: Anisocytosis Slight; Basophils % (A) 0 %; Eosinophils # (A) 0.2 k/uL (0-0.7); Eosinophils % (A) 2 %; HCT 53.1 % (39.0-53.0); HGB 15.4 gm/dL (13.0-17.5); Hypochromasia Marked; Lymphocytes # (A) 0.4 k/uL (1.0-4.8); Lymphocytes % (A) 3 %; MCH 22.9 pg (25.0-35.0); Mean Platelet Volume 8.3; Microcytosis Slight; Monocytes # (A) 0.5 k/uL (0-1.0); Monocytes % (A) 3 %; Neutrophils # (A) 13.8 k/uL (1.3-7.7); Neutrophils % (A) 92 %; Platelet Count 192 k/uL (150-450); RBC 6.71 m/uL (4.30-5.90); RDW 18.7 % (11.5-15.5)
[2024-07-19 10:51] LABS: ALT 22 U/L (4-49); AST 25 U/L (17-59); African American GFR (CKD) >90 (>60 ml/min/1.73 sqM); Albumin 4.8 g/dL (3.5-5.0); Alkaline Phosphatase 73 U/L (38-126); Amylase 85 U/L (30-110); Anion Gap 14 mmol/L; Blood Urea Nitrogen 16 mg/dL (9-20); Calcium 10.7 mg/dL (8.4-10.2); Carbon Dioxide 22 mmol/L (22-30); Chloride 103 mmol/L (98-107); Glucose 178 mg/dL (74-99); Lipase 120 U/L (23-300); Non-African American GFR(CKD) 80 (>60 ml/min/1.73 sqM); Potassium 4.6 mmol/L (3.5-5.1); Sodium 139 mmol/L (137-145); Total Bilirubin 0.8 mg/dL (0.2-1.3); Total Protein 7.8 g/dL (6.3-8.2)
[2024-07-19 10:53] LABS: Appearance,Urine Clear (Clear); Bacteria,Urine Rare /hpf; Bilirubin,Urine Negative (Negative); Blood,Urine Negative (Negative); Budding Yeast,Urine Rare /hpf; Color,Urine Light Yellow; Glucose,Urine (UA) 4+ (Negative); Ketones,Urine Negative (Negative); Leukocyte Esterase,Urine Trace (Negative); Mucus,Urine Rare /hpf; Nitrite,Urine Negative (Negative); Protein,Urine Trace (Negative); RBC,Urine 2 /hpf (0-5); Specific Gravity,Urine 1.032 (1.001-1.035); Squamous Epithelial Cell,Urine 3 /hpf (0-4); Urobilinogen,Urine <2.0 mg/dL (<2.0); WBC,Urine 2 /hpf (0-5)
[2024-07-19] MEDS: ONDANSETRON 4 MG/2 ML VIAL IVP STA (11:57)
[2024-07-19] MEDS: METOCLOPRAMIDE 5 MG/ML 2 ML VIAL IVP STA (12:34)
[2024-07-19] MEDS: DIPHENOX-ATROP 2.5-0.025 MG 1 EACH TAB PO STA (12:54)
--- NOTE | 2024-07-19 13:25 | CT ---
EXAMINATION TYPE: CT abdomen pelvis w con CT DLP: 2252.6 mGycm, Automated exposure control for dose reduction was used. DATE OF EXAM: 07/19/2024 12:53 PM COMPARISON: Multiple CT abdomen pelvis with most recent 06/28/2024 CLINICAL INDICATION:Male, 73 years old with history of Abdominal pain; ABDOMINAL PAIN, BLOATING VOMIT ING TECHNIQUE: Standard CT of the abdomen and pelvis following the administration of 100 cc of Isovue 3 00 IV contrast material. Coronal and sagittal reformats were performed. FINDINGS: LOWER CHEST: Stable scattered right lung pulmonary nodules. Mild cardiomegaly. Coronary artery calcif ications. Calcified granulomas at the GE junction. ABDOMEN LIVER: Surface nodularity without focal lesion identified. Low attenuation of the liver. GALLBLADDER AND BILE DUCTS: Unremarkable. PANCREAS: Stable exophytic pancreatic body 1.5 cm cyst (series 201, image 29). SPLEEN: Scattered calcified granulomas. Mildly enlarged measuring 15.3 cm in AP dimension. ADRENAL GLANDS: Unremarkable right adrenal gland. Stable indeterminate left adrenal gland 1.4 cm nodu le. Likely a benign adenoma. KIDNEYS AND URETERS: No evidence of hydronephrosis or renal calculus. The kidneys enhance symmetrical ly. Stable right renal lower pole 1.8 cm cyst. Stable left mid kidney 4.3 cm cyst. PELVIS BLADDER: Underdistended, which limits evaluation. REPRODUCTIVE: Prostate is enlarged in size measuring 6.5 cm in transverse dimension. ABDOMEN & PELVIS STOMACH AND BOWEL: Stomach and duodenum are unremarkable. Redundant sigmoid colon. Scattered distal c olonic diverticula without evidence for acute diverticulitis. Postsurgical changes of the ascending c olon. No focal bowel wall thickening or surrounding inflammatory changes. No evidence of bowel obstru ction. PERITONEUM: No evidence of pneumoperitoneum or free fluid. VASCULATURE: No evidence of aortic aneurysm. MUSCULOSKELETAL: No acute osseous abnormalities LYMPH NODES: No evidence for lymphadenopathy. SOFT TISSUE/ABDOMINAL WALL: Post surgical changes of the midline anterior abdominal wall without orga nized fluid collection. IMPRESSION: 1. No acute abdominal/pelvic process. 2. 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 Hepatic steatosis. No ascites. 3. Splenomegaly. 4. Colonic diverticulosis without evidence for acute diverticulitis. 5. Stable left adrenal gland probable adenoma. 6. Stable exophytic pancreatic body 1.5 cm lesion. Probable sidebranch IPMN. 7. Prostatomegaly. 8. Stable scattered pulmonary nodules. [facility], , 07/19/2024 1:23 PM
[2024-07-19] MEDS: VANCOMYCIN 125 MG CAPSULE PO ONE (13:47)
[2024-07-19] MEDS: SODIUM CHLORIDE 0.9% 1,000 ML IV ONE (13:48)
[2024-07-19] MEDS ORDERED: DEXTROSE 50% SYRINGE 50 ML IVP PRN ×2 (13:58)
[2024-07-19] MEDS ORDERED: NALOXONE 0.4 MG/ML 1 ML VIAL IV PRN (14:27)
[2024-07-19] MEDS ORDERED: ONDANSETRON 4 MG/2 ML VIAL IVP PRN (14:27)
--- NOTE | 2024-07-19 14:39 | P.HPIM ---
History of Present Illness H&P Date: 07/19/24 Patient is a 73-year-old male with past medical history of CAD with stents placed, A-fib on Xarelto, HTN, HLD, hypothyroidism, GERD, type II DM on insulin, history of CVA, liver cirrhosis, colon cancer s/p bowel resection and chemotherapy in remission since 2016, presented to the ER with acute onset diarrhea started on 07/18. Patient recently finished antibiotics for his chronic wound infection. Patient reports 1 previous C. difficile infection in the past. Today complains of nausea, vomiting abdominal pain, ongoing diarrhea On arrival afebrile with elevated BP 184/94, satting well on room air, normal heart rate. Lab work significant for leukocytosis 15.0, hemoglobin count normal at 15.4, platelet count normal at 192, sodium and potassium normal, creatinine WNL, glucose elevated 178, urinalysis with trace proteinuria, glucosuria, this is positive for C. difficile. CT abdomen showed no acute abdominal process, hepatic cirrhosis without focal lesion, splenomegaly, colonic diverticulosis without diverticulitis, stable left adrenal gland probable adenoma, stable pancreatic body 1.5 cm lesion, prostatomegaly, stable scattered pulmonary nodules. Started on oral vancomycin, ID consulted, admitted for further management. Pertinent positives and negatives as discussed in HPI, a complete review of systems was performed and all other systems are negative. Patient seen and examined at bedside. Vital signs reviewed General: nontoxic, no distress, appears at stated age obese Derm: warm, dry Head: atraumatic, normocephalic, symmetric Eyes: EOMI, no lid lag, anicteric sclera, pupils equal round reactive to light ENT: Nose and ears atraumatic Neck: No thyromegaly, supple Mouth: no lip lesion, mucus membranes moist Cardiovascular: S1S2 reg, no murmur, no edema Lungs: clear to auscultation bilateral, no rhonchi, no rales, no wheeze, no accessory muscle use Abdominal: Distended, generalized tenderness, no guarding Ext: no gross muscle atrophy, muscle strength muscle strength 5 out of 5 in all 4 extremities, no contractures, Neuro: CN II-XII grossly intact Psych: Alert, oriented, appropriate affect Assessment/Plan: Severe C. difficile infection based on leukocyte count 15.0 -Continue with vancomycin 125 mg p.o. every 6 hours for 10 days SOT 07/19/2024 -ID consulted, appreciate recommendations -Continue IV fluids with NS at 75 cc/h -Symptom control with antinausea and pain medication Diabetes mellitus with hyperglycemia:Continue Levemir 15 units nightly glycemic protocol with NovoLog sliding scale to maintain tight glycemic control throughout hospitalization. Anxiety, depression: resume home medications once reconciled: BuSpar 10 mg 3 times daily and Seroquel 50 mg nightly and 25 mg twice daily Chronic A-fib on Xarelto: resume home medications once reconciledContinue daily medication regimen with Xarelto 20 mg nightly. HTN:resume home medications once reconciled: Continue daily medication regimen with amlodipine 10 mg daily and lisinopril 10 mg daily. HLD:resume home medications once reconciled Continue daily medication regimen with pravastatin 40 mg nightly and fenofibrate 160 mg daily. History of CAD with stents placed:resume home medications once reconciled continue daily medication regimen with aspirin 81 mg daily, amlodipine 10 mg daily, lisinopril 10 mg daily, pravastatin 40 mg nightly, Xarelto 20 mg nightly. Chronic thrombocytopenia GERD: resume home medications once reconciled :home GI prophylaxis with Protonix 40 mg p.o. twice daily and Pepcid 20 mg daily. Chronic right great toe wound, follow-up with ID, completed antibiotics recentl y, uses Betadine daily Chronic cervical neck and back pain hepatic cirrhosis splenomegaly colonic diverticulosis without diverticulitis stable left adrenal gland probable adenoma stable pancreatic body 1.5 cm lesion prostatomegaly stable scattered pulmonary nodules. hx of colon cx -follow up with PCP The patient is admitted with an anticipated [greater] than 2 midnight stay as inpatient status for evaluation of C. difficile colitis. CODE STATUS: Full code DVT prophylaxis Xarelto Anticipated discharge date: TBD Anticipated discharge place: TBD A total of 40 minutes was spent on the care of this complex patient more than 50% of the time was spent in counseling and care coordination. Past Medical History Past Medical History: Atrial Fibrillation, Coronary Artery Disease (CAD), Cancer, Heart Failure, CVA/TIA, Diabetes Mellitus, GERD/Reflux, Hyperlipidemia, Hypertension, Myocardial Infarction ([place]), Sleep Apnea/CPAP/BIPAP, Thyroid Disorder Additional Past Medical History / Comment(s): gout, skin ca, colon cancer with resection and chemo (2017)., c-pap machine., ulcer on side of right great toe- receives wound tx ., BPH., gall bladder pain.buldge to c-spine, infection toe- needing amputation Last Myocardial Infarction Date:: 2006 History of Any Multi-Drug Resistant Organisms: C-DIFF, MRSA Date of last positivie culture/infection: MDRO Source:: right great toe Past Surgical History: Appendectomy, Bowel Resection, Heart Catheterization With Stent, Orthopedic Surgery Additional Past Surgical History / Comment(s): skin ca removed, lt shoulder surgery ,rt knee surgery, deviated septum surgery Past Anesthesia/Blood Transfusion Reactions: No Reported Reaction Date of Last Stent Placement:: 2006 Past Psychological History: Anxiety, Bipolar, Depression Smoking Status: Current some day smoker, Former smoker Past Alcohol Use History: Occasional Past Drug Use History: None Reported - Past Family History Father Family Medical History: Asthma, Hyperlipidemia Additional Family Medical History / Comment(s): at age 61. was a heavy smoker,prostate sx a week before he not sure what took him. Mother Family Medical History: Dementia Additional Family Medical History / Comment(s): at age 75 from alzheimers Medications and Allergies Home Medications Medication Instructions Recorded Confirmed Type Potassium Chloride [Klor-Con 20] 20 meq PO DAILY 01/15/14 05/30/24 History Pravastatin Sodium [Pravachol] 40 mg PO HS 01/15/14 05/30/24 History allopurinoL [Zyloprim] 100 mg PO HS 07/28/15 05/30/24 History Sertraline HCl [Zoloft] 200 mg PO DAILY 11/05/15 05/30/24 History Rivaroxaban [Xarelto] 20 mg PO HS 07/27/17 05/30/24 History Empagliflozin [Jardiance] 25 mg PO DAILY 06/10/21 05/30/24 History Pantoprazole [Protonix] 40 mg PO BID 06/10/21 05/30/24 History glipiZIDE [Glucotrol] 20 mg PO AC-BID 08/14/22 05/30/24 History LORazepam [Ativan] 2 mg PO BID 08/11/23 05/30/24 History Fenofibrate [Lofibra] 160 mg PO DAILY 30 Days #30 tab 11/27/23 05/30/24 Rx Temazepam [Restoril] 7.5 mg PO HS 02/11/24 05/30/24 History lisinopriL [Zestril] 10 mg PO DAILY #30 tab 02/14/24 05/30/24 Rx Ziprasidone [Geodon] 40 mg PO BID 03/14/24 05/30/24 History Cephalexin [Keflex] 500 mg PO Q6HR 7 Days #28 cap 05/30/24 Rx Dicyclomine [Bentyl] 20 mg PO TID PRN 05/30/24 05/30/24 History Insulin Glargine,Hum.rec.anlog 20 unit SQ DAILY 05/30/24 05/30/24 History [Insulin Glargine Solostar] [place] Carbonate ER [Lithobid] 450 mg PO HS 05/30/24 05/30/24 History Nystatin 100,000Unit/gm Cream 1 applic TOPICAL TID 05/30/24 05/30/24 History [Mycostatin Cream] Allergies Allergy/AdvReac Type Severity Reaction Status Date / Time clopidogrel bisulfate Allergy Rash/Hives Verified 07/19/24 10:22 [From Plavix] Sulfa (Sulfonamide Allergy Rash/Hives Verified 07/19/24 10:22 Antibiotics) gabapentin AdvReac Aggression, Verified 07/19/24 10:22 anxiety, mood swings metformin AdvReac Diarrhea Verified 07/19/24 10:22 morphine AdvReac Hallucinati Verified 07/19/24 10:22 ons pregabalin [From Lyrica] AdvReac Aggression, Verified 07/19/24 10:22 anxiety, mood swings Physical Exam Vitals: Vital Signs Temp Pulse Resp BP Pulse Ox 07/19/24 11:56 87 20 151/83 98 07/19/24 10:13 98.1 F 80 18 184/94 98 Intake and Output 07/18/24 07/19/24 07/19/24 22:59 06:59 14:59 Other: Weight 113.398 kg Results CBC & Chem 7: 07/19/24 10:26 07/19/24 10:26 Labs: Abnormal Lab Results - Last 24 Hours (Table) 07/19/24 07/19/24 07/19/24 Range/Units 10:26 10:26 10:26 WBC 15.0 H (3.8-10.6) k/uL RBC 6.71 H (4.30-5.90) m/uL Hct 53.1 H (39.0-53.0) % MCV 79.0 L (80.0-100.0) fL MCH 22.9 L (25.0-35.0) pg MCHC 29.0 L (31.0-37.0) g/dL RDW 18.7 H (11.5-15.5) % Neutrophils # 13.8 H (1.3-7.7) k/uL Lymphocytes # 0.4 L (1.0-4.8) k/uL Glucose 178 H (74-99) mg/dL Calcium 10.7 H (8.4-10.2) mg/dL Urine Protein Trace H (Negative) Urine Glucose (UA) 4+ H (Negative) Ur Leukocyte Esterase Trace H (Negative) Urine Bacteria Rare H (None) /hpf Urine Mucus Rare H (None) /hpf Urine Yeast ([place]) Rare H (None) /hpf C. difficile (EIA) Intrp (Negative) 07/19/24 Range/Units 11:49 WBC (3.8-10.6) k/uL RBC (4.30-5.90) m/uL Hct (39.0-53.0) % MCV (80.0-100.0) fL MCH (25.0-35.0) pg MCHC (31.0-37.0) g/dL RDW (11.5-15.5) % Neutrophils # (1.3-7.7) k/uL Lymphocytes # (1.0-4.8) k/uL Glucose (74-99) mg/dL Calcium (8.4-10.2) mg/dL Urine Protein (Negative) Urine Glucose (UA) (Negative) Ur Leukocyte Esterase (Negative) Urine Bacteria (None) /hpf Urine Mucus (None) /hpf Urine Yeast (Budding) (None) /hpf C. difficile (EIA) Intrp Positive A (Negative)
[2024-07-19] MEDS: PROCHLORPERAZINE INJ 10 MG/2 ML VIAL IVP PRN (15:09)
[2024-07-19] MEDS: HYDROmorphone 1 MG/ML 1 ML SYRINGE IVP PRN (15:09)
[2024-07-19 16:24] LABS: Glucose,Whole Blood 174 mg/dL (70-110)
[2024-07-19] MEDS: INSULIN LISPRO (HumaLOG) 100 UNIT/ML 10 mL VL SQ SCH (17:05)
[2024-07-19] MEDS: VANCOMYCIN 125 MG CAPSULE PO SCH ×2 (17:56→22:20)
[2024-07-19] MEDS ORDERED: VANCOMYCIN 125 MG CAPSULE PO SCH (18:00)
[2024-07-19 21:08] LABS: Glucose,Whole Blood 114 mg/dL (70-110)
[2024-07-19] MEDS: ACETAMINOPHEN TAB 325 MG TAB PO PRN (21:28)
[2024-07-19] MEDS: INSULIN GLARGINE (LANTUS) 100 UNIT/ML SYR SQ SCH (21:29)
--- NOTE | 2024-07-19 21:58 | P.CONS ---
History of Present Illness - Reason for Consult Consult date: 07/19/24 C. difficile colitis Requesting physician: Alberto Aguillon - Chief Complaint Diarrhea abdominal pain x 2 days - History of Present Illness Patient is a 73-year-old male with a past medical history significant for hypertension hyperlipidemia diabetes mellitus CVA TIA coronary artery disease did have a previous history of C. difficile colitis patient has been de aling with a diabetic foot infection in this patient who is status post partial amputation of the right big toe subsequent developing cellulitis with Streptococcus for the patient has been treated with oral Augmentin in the outpatient setting patient was doing well on his follow-up visit last week h owever subsequently has developed diarrhea over the last 2 days that has progressively increased in intensity with multiple loose stools patient denies having any blood or mucus in the stool has been complaining of abdominal pain to be sharp moderate intensity without any radiation he did have nausea and decreased oral intake but no vomiting and denies high-grade fever on presentation to the hospital patient is afebrile and no fever have been recorded subsequently patient was not tachycardic hypotensive or hypoxic patient did have white count of 15,000 with a left shift creatinine 0.96 electrolytes are normal liver isms are normal urine has been negative tested positive for C. difficile patient did have abdominal pelvis CT did not show any acute intra-abdominal process patient was started on vancomycin infectious disease was consulted for further management of antibiotic therapy Review of Systems Positive point and negatives has been mentioned in the HPI, complete review of systems was performed and all other systems are negative Past Medical History Past Medical History: Atrial Fibrillation, Coronary Artery Disease (CAD), Cancer, Heart Failure, CVA/TIA, Diabetes Mellitus, GERD/Reflux, Hyperlipidemia, Hypertension, Myocardial Infarction ([place]), Sleep Apnea/CPAP/BIPAP, Thyroid Disorder Additional Past Medical History / Comment(s): gout, skin ca, colon cancer with resection and chemo (2017)., c-pap machine., ulcer on side of right great toe- receives wound tx ., BPH., gall bladder pain.buldge to c-spine, infection toe- needing amputation Last Myocardial Infarction Date:: 2006 History of Any Multi-Drug Resistant Organisms: C-DIFF, MRSA Year Discovered:: MDRO Source:: right great toe Past Surgical History: Appendectomy, Bowel Resection, Heart Catheterization With Stent, Orthopedic Surgery Additional Past Surgical History / Comment(s): skin ca removed, lt shoulder surgery ,rt knee surgery, deviated septum surgery Past Anesthesia/Blood Transfusion Reactions: No Reported Reaction Date of Last Stent Placement:: 2006 Past Psychological History: Anxiety, Bipolar, Depression Smoking Status: Current some day smoker, Former smoker Past Alcohol Use History: Occasional Past Drug Use History: None Reported - Past Family History Father Family Medical History: Asthma, Hyperlipidemia Additional Family Medical History / Comment(s): at age 61. was a heavy smoker,prostate sx a week before he not sure what took him. Mother Family Medical History: Dementia Additional Family Medical History / Comment(s): at age 75 from alzheimers Medications and Allergies Home Medications Medication Instructions Recorded Confirmed Type Potassium Chloride [Klor-Con 20] 20 meq PO DAILY 01/15/14 07/19/24 History Pravastatin Sodium [Pravachol] 40 mg PO HS 01/15/14 07/19/24 History allopurinoL [Zyloprim] 100 mg PO HS 07/28/15 07/19/24 History Sertraline HCl [Zoloft] 200 mg PO DAILY 11/05/15 07/19/24 History Rivaroxaban [Xarelto] 20 mg PO HS 07/27/17 07/19/24 History Empagliflozin [Jardiance] 25 mg PO DAILY 06/10/21 07/19/24 History Pantoprazole [Protonix] 40 mg PO BID 06/10/21 07/19/24 History glipiZIDE [Glucotrol] 20 mg PO AC-BID 08/14/22 07/19/24 History LORazepam [Ativan] 2 mg PO BID 08/11/23 07/19/24 History Fenofibrate [Lofibra] 160 mg PO DAILY 30 Days #30 tab 11/27/23 07/19/24 Rx Temazepam [Restoril] 7.5 mg PO HS 02/11/24 07/19/24 History lisinopriL [Zestril] 10 mg PO DAILY #30 tab 02/14/24 07/19/24 Rx Ziprasidone [Geodon] 40 mg PO BID 03/14/24 07/19/24 History Dicyclomine [Bentyl] 20 mg PO TID PRN 05/30/24 07/19/24 History Insulin Glargine,Hum.rec.anlog 20 unit SQ DAILY 05/30/24 07/19/24 History [Insulin Glargine Solostar] [place] Carbonate ER [Lithobid] 450 mg PO HS 05/30/24 07/19/24 History Aspirin EC [Ecotrin Low Dose] 81 mg PO DAILY 07/19/24 07/19/24 History Tamsulosin HCl [Flomax] 0.4 mg PO HS 07/19/24 07/19/24 History Allergies Allergy/AdvReac Type Severity Reaction Status Date / Time clopidogrel bisulfate Allergy Rash/Hives Verified 07/19/24 14:38 [From Plavix] Sulfa (Sulfonamide Allergy Rash/Hives Verified 07/19/24 14:38 Antibiotics) gabapentin AdvReac Aggression, Verified 07/19/24 14:38 anxiety, mood swings metformin AdvReac Diarrhea Verified 07/19/24 14:38 morphine AdvReac Hallucinati Verified 07/19/24 14:38 ons pregabalin [From Lyrica] AdvReac Aggression, Verified 07/19/24 14:38 anxiety, mood swings Physical Exam Vitals: Vital Signs Temp Pulse Resp BP Pulse Ox 07/19/24 11:56 87 20 151/83 98 07/19/24 10:13 98.1 F 80 18 184/94 98 Intake and Output 07/18/24 07/19/24 07/19/24 22:59 06:59 14:59 Other: Weight 113.398 kg GENERAL DESCRIPTION: Elderly male lying in bed, no distress. No tachypnea or a ccessory muscle of respiration use. HEENT: Shows Pallor , no scleral icterus. Oral mucous membrane is dry. NECK: Trachea central, no thyromegaly. LUNGS: Unlabored breathing. Clear to auscultation anteriorly. No wheeze or crackle. HEART: S1, S2, regular rate and rhythm. No loud murmur ABDOMEN: Soft, mild distention no significant tenderness EXTREMITIES: No edema of feet. SKIN: No rash, no masses palpable. NEUROLOGICAL: The patient is awake, alert, oriented x3, mood and affect normal. Results CBC & Chem 7: 07/19/24 10:26 07/19/24 10:26 Labs: Abnormal Lab Results - Last 24 Hours (Table) 07/19/24 07/19/24 07/19/24 Range/Units 10:26 10:26 10:26 WBC 15.0 H (3.8-10.6) k/uL RBC 6.71 H (4.30-5.90) m/uL Hct 53.1 H (39.0-53.0) % MCV 79.0 L (80.0-100.0) fL MCH 22.9 L (25.0-35.0) pg MCHC 29.0 L (31.0-37.0) g/dL RDW 18.7 H (11.5-15.5) % Neutrophils # 13.8 H (1.3-7.7) k/uL Lymphocytes # 0.4 L (1.0-4.8) k/uL Glucose 178 H (74-99) mg/dL Calcium 10.7 H (8.4-10.2) mg/dL Urine Protein Trace H (Negative) Urine Glucose (UA) 4+ H (Negative) Ur Leukocyte Esterase Trace H (Negative) Urine Bacteria Rare H (None) /hpf Urine Mucus Rare H (None) /hpf Urine Yeast (Budding) Rare H (None) /hpf C. difficile (EIA) Intrp (Negative) 07/19/24 Range/Units 11:49 WBC (3.8-10.6) k/uL RBC (4.30-5.90) m/uL Hct (39.0-53.0) % MCV (80.0-100.0) fL MCH (25.0-35.0) pg MCHC (31.0-37.0) g/dL RDW (11.5-15.5) % Neutrophils # (1.3-7.7) k/uL Lymphocytes # (1.0-4.8) k/uL Glucose (74-99) mg/dL Calcium (8.4-10.2) mg/dL Urine Protein (Negative) Urine Glucose (UA) (Negative) Ur Leukocyte Esterase (Negative) Urine Bacteria (None) /hpf Urine Mucus (None) /hpf Urine Yeast (Budding) (None) /hpf C. difficile (EIA) Intrp Positive A (Negative) Assessment and Plan (1) Leukocytosis Current Visit: Yes Status: Acute Code(s): D72.829 - ELEVATED WHITE BLOOD CELL COUNT, UNSPECIFIED SNOMED Code(s): 200143526 (2) Clostridium difficile colitis Current Visit: Yes Status: Acute Code(s): A04.72 - ENTEROCOLITIS D/T CLOSTRIDIUM DIFFICILE, NOT SPCF RECUR SNOMED Code(s): 495770825 Plan: 1patient presented to hospital with diarrhea and abdominal pain in this patient has been recently exposed antibiotics with Augmentin for diabetic foot infection now with evidence of elevated white count abdominal distention concerning for severe C. difficile colitis 2-we will increase the dose of vancomycin 250 p.o. every 6 hours avoid antimotility agent if persistent diarrhea will add Questran for symptomatic relief We will follow on clinical condition and cultures to further adjust medication if needed Thank you for this consultation we will follow the patient along with you Dictation was produced using [employer] dictation software. please excuse any grammatical, word or spelling errors.
[2024-07-19] MEDS: ZIPRASIDONE 40 MG CAP PO SCH (22:23)
[2024-07-19] MEDS: PANTOPRAZOLE 40 MG TABLET PO SCH (22:23)
[2024-07-19] MEDS: PRAVASTATIN SODIUM 80 MG TAB PO SCH (22:23)
[2024-07-19] MEDS: allopurinoL 100 MG TAB PO SCH (22:24)
[2024-07-19] MEDS: LORazepam 1 MG TAB PO SCH (22:24)
[2024-07-19] MEDS: TEMAZEPAM 7.5 MG CAP PO SCH (22:24)
[2024-07-19] MEDS: TAMSULOSIN 0.4 MG CAP.ER.24H PO SCH (22:24)
[2024-07-19] MEDS: RIVAROXABAN 20 MG TAB PO SCH (22:24)
[2024-07-19] MEDS: LITHIUM CARBONATE ER 450 MG TABLET.ER PO SCH (22:24)
[2024-07-20 06:33] LABS: Glucose,Whole Blood 111 mg/dL (70-110)
[2024-07-20 07:43] LABS: African American GFR (CKD) >90 (>60 ml/min/1.73 sqM); Albumin/Globulin Ratio 1.4; Alkaline Phosphatase 59 U/L (38-126); Anion Gap 10 mmol/L; Blood Urea Nitrogen 13 mg/dL (9-20); Calcium 8.9 mg/dL (8.4-10.2); Carbon Dioxide 19 mmol/L (22-30); Chloride 104 mmol/L (98-107); Globulin 2.7 g/dL; Glucose 128 mg/dL (74-99); Non-African American GFR(CKD) >90 (>60 ml/min/1.73 sqM); Sodium 133 mmol/L (137-145)
[2024-07-20 07:58] LABS: ALT 20 U/L (4-49); AST 47 U/L (17-59); Albumin 3.7 g/dL (3.5-5.0); Total Protein 6.4 g/dL (6.3-8.2)
[2024-07-20 07:59] LABS: Total Bilirubin 1.3 mg/dL (0.2-1.3)
[2024-07-20 08:09] LABS: Anisocytosis Slight; Basophils % (A) 0 %; Eosinophils # (A) 0.1 k/uL (0-0.7); Eosinophils % (A) 2 %; HCT 46.7 % (39.0-53.0); HGB 13.6 gm/dL (13.0-17.5); Hypochromasia Marked; Lymphocytes # (A) 0.5 k/uL (1.0-4.8); Lymphocytes % (A) 8 %; MCH 23.1 pg (25.0-35.0); MCHC 29.1 g/dL (31.0-37.0); MCV 79.4 fL (80.0-100.0); Microcytosis Slight; Monocytes # (A) 0.3 k/uL (0-1.0); Monocytes % (A) 5 %; Neutrophils # (A) 5.3 k/uL (1.3-7.7); Neutrophils % (A) 85 %; Platelet Count 119 k/uL (150-450); RBC 5.88 m/uL (4.30-5.90); RDW 18.9 % (11.5-15.5); WBC 6.2 k/uL (3.8-10.6)
[2024-07-20] MEDS: FENOFIBRATE 160 MG TAB PO SCH (08:27)
[2024-07-20] MEDS: lisinopriL 10 MG TAB PO SCH (08:27)
[2024-07-20] MEDS: SERTRALINE 100 MG TAB PO SCH (08:28)
[2024-07-20] MEDS: POTASSIUM CHLORIDE ER 20 MEQ TAB.ER PO SCH (08:28)
[2024-07-20] MEDS: ASPIRIN 81 MG PO SCH (08:28)
--- NOTE | 2024-07-20 11:38 | P.PN ---
Subjective Progress Note Date: 07/20/24 Hospital Course: Patient is a 73-year-old male with past medical history of CAD with stents samson tyler, A-fib on Xarelto, HTN, HLD, hypothyroidism, GERD, type II DM on insulin, history of CVA, liver cirrhosis, colon cancer s/p bowel resection and chemotherapy in remission since 2016, presented to the ER with acute onset diarrhea started on 07/18. Patient recently finished antibiotics for his chronic wound infection. Patient reports 1 previous C. difficile infection in the past. Today complains of nausea, vomiting abdominal pain, ongoing diarrhea On arrival afebrile with elevated BP 184/94, satting well on room air, normal heart rate. Lab work significant for leukocytosis 15.0, hemoglobin count normal at 15.4, platelet count normal at 192, sodium and potassium normal, creatinine WNL, gl ucose elevated 178, urinalysis with trace proteinuria, glucosuria, this is positive for C. difficile. CT abdomen showed no acute abdominal process, hepatic cirrhosis without focal lesion, splenomegaly, colonic diverticulosis without diverticulitis, stable left adrenal gland probable adenoma, stable pancreatic body 1.5 cm lesion, prostatomegaly, stable scattered pulmonary nodules. Started on oral vancomycin, ID consulted, admitted for further management. Vancomycin dose increased to 250 every 6 hours. 07/20: Patient noted improvement in his abdominal pain, still has diarrhea however no bowel movements overnight, had restfull sleep Pertinent positives and negatives as discussed above, a complete review of systems was performed and all other systems are negative. Vitals Signs Reviewed. Vital signs reviewed General: nontoxic, no distress, appears at stated age obese Derm: warm, dry Head: atraumatic, normocephalic, symmetric Eyes: EOMI, no lid lag, anicteric sclera, pupils equal round reactive to light ENT: Nose and ears atraumatic Neck: No thyromegaly, supple Mouth: no lip lesion, mucus membranes moist Cardiovascular: S1S2 reg, no murmur, no edema Lungs: clear to auscultation bilateral, no rhonchi, no rales, no wheeze, no accessory muscle use Abdominal: Distended, generalized tenderness, no guarding Ext: no gross muscle atrophy, muscle strength muscle strength 5 out of 5 in all 4 extremities, no contractures, Neuro: CN II-XII grossly intact Psych: Alert, oriented, appropriate affect Data Reviewed Today: Pertinent Labs: WBC 6.2, hemoglobin 13.6, platelet count 111, sodium 133, potassium 5.0, creatinine 0.79, glucose is controlled, AST, ALT, total bili, ALP normal Assessment and Plan: Severe C. difficile infection based on leukocyte count 15.0 on admissions -Continue with vancomycin 250 mg p.o. every 6 hours for 10 days SOT 07/19/2024 -WBV normalized -ID consulted, appreciate recommendations -Continue IV fluids with NS at 75 cc/h -Symptom control with antinausea and pain medication Diabetes mellitus with hyperglycemia:Continue Levemir 15 units nightly glycemic protocol with NovoLog sliding scale to maintain tight glycemic control t hroughout hospitalization. Anxiety, depression: resume home medications once reconciled: BuSpar 10 mg 3 times daily and Seroquel 50 mg nightly and 25 mg twice daily Chronic A-fib on Xarelto: resume home medications once reconciledContinue daily medication regimen with Xarelto 20 mg nightly. HTN:resume home medications once reconciled: Continue daily medication regimen with amlodipine 10 mg daily and lisinopril 10 mg daily. HLD:resume home medications once reconciled Continue daily medication regimen with pravastatin 40 mg nightly and fenofibrate 160 mg daily. History of CAD with stents placed:resume home medications once reconciled continue daily medication regimen with aspirin 81 mg daily, amlodipine 10 mg daily, lisinopril 10 mg daily, pravastatin 40 mg nightly, Xarelto 20 mg nightly. Chronic thrombocytopenia GERD: resume home medications once reconciled :home GI prophylaxis with Protonix 40 mg p.o. twice daily and Pepcid 20 mg daily. Chronic right great toe wound, follow-up with ID, completed antibiotics recently, uses Betadine daily Chronic cervical neck and back pain hepatic cirrhosis splenomegaly colonic diverticulosis without diverticulitis stable left adrenal gland probable adenoma stable pancreatic body 1.5 cm lesion prostatomegaly stable scattered pulmonary nodules. hx of colon cx -follow up with PCP CODE STATUS: Full code DVT prophylaxis Xarelto Anticipated discharge date: TBD Anticipated discharge place: TBD Objective - Vital Signs Vital signs: Vital Signs Temp 98 F 07/20/24 07:45 Pulse 78 07/20/24 07:45 Resp 21 07/20/24 07:45 BP 148/71 07/20/24 07:45 Pulse Ox 97 07/20/24 07:45 FiO2 21 07/20/24 04:12 Intake & Output 07/19/24 07/20/24 07/20/24 18:59 06:59 18:59 Output Total 1 0 Balance -1 0 Weight 113.398 kg Output: Urine 1 0 Other: Voiding Method Toilet Toilet Urinal Diaper Incontinent # Voids 1 # Bowel Movements 1 - Labs CBC & Chem 7: 07/20/24 06:47 07/20/24 06:47 Labs: Abnormal Lab Results - Last 24 Hours (Table) 07/19/24 07/19/24 07/19/24 Range/Units 11:49 16:23 21:06 MCV (80.0-100.0) fL MCH (25.0-35.0) pg MCHC (31.0-37.0) g/dL RDW (11.5-15.5) % Plt Count (150-450) k/uL Lymphocytes # (1.0-4.8) k/uL Sodium (137-145) mmol/L Carbon Dioxide (22-30) mmol/L Glucose (74-99) mg/dL POC Glucose (mg/dL) 174 H 114 H (70-110) mg/dL C. difficile (EIA) Intrp Positive A (Negative) 07/20/24 07/20/24 07/20/24 Range/Units 06:31 06:47 06:47 MCV 79.4 L (80.0-100.0) fL MCH 23.1 L (25.0-35.0) pg MCHC 29.1 L (31.0-37.0) g/dL RDW 18.9 H (11.5-15.5) % Plt Count 119 L (150-450) k/uL Lymphocytes # 0.5 L (1.0-4.8) k/uL Sodium 133 L (137-145) mmol/L Carbon Dioxide 19 L (22-30) mmol/L Glucose 128 H (74-99) mg/dL POC Glucose (mg/dL) 111 H (70-110) mg/dL C. difficile (EIA) Intrp (Negative)
[2024-07-20 11:48] LABS: Glucose,Whole Blood 169 mg/dL (70-110)
--- NOTE | 2024-07-20 15:20 | P.PN ---
Subjective Progress Note Date: 07/20/24 Principal diagnosis: Reason for follow-up is C. difficile colitis Patient is a 73-year-old male with a past medical history significant for hypertension hyperlipidemia diabetes mellitus CVA TIA coronary artery disease did have a previous history of C. difficile colitis patient has been dealing with a diabetic foot infection in this patient who is status post partial amputation of the right big toe subsequent developing cellulitis with Streptococcus treated with the Augmentin now presenting with the diarrhea has been diagnosed with a C. difficile colitis probably this consultation. On today's evaluation that is 07/20/2024, Patient is afebrile patient is currently on room air and denies having any shortness of breath, the patient denies any chest pain or cough, the patient denies any nausea vomiting did have improvement in her abdominal pain and diarrhea slowed down as reported by the nursing staff. Patient white count normalized to 6.2, creatinine 0.79 Objective - Vital Signs Vital signs: Vital Signs Temp 98.2 F 07/20/24 14:27 Pulse 74 07/20/24 14:27 Resp 18 07/20/24 14:27 BP 96/57 07/20/24 14:27 Pulse Ox 95 07/20/24 14:27 FiO2 21 07/20/24 04:12 Intake & Output 07/19/24 07/20/24 07/20/24 18:59 06:59 18:59 Output Total 1 0 Balance -1 0 Weight 113.398 kg Output: Urine 1 0 Other: Voiding Method Toilet Toilet Urinal Diaper Incontinent # Voids 1 2 # Bowel Movements 1 2 - Exam GENERAL DESCRIPTION: An elderly male lying in bed in no distress RESPIRATORY SYSTEM: Unlabored breathing , decreased breath sounds at bases HEART: S1 S2 regular rate and rhythm , ABDOMEN: Soft , no tenderness EXTREMITIES: Right big toe wound base looks clean no surrounding redness or drainage - Labs CBC & Chem 7: 07/20/24 06:47 07/20/24 06:47 Labs: Abnormal Lab Results - Last 24 Hours (Table) 07/19/24 07/19/24 07/20/24 Range/Units 16:23 21:06 06:31 MCV (80.0-100.0) fL MCH (25.0-35.0) pg MCHC (31.0-37.0) g/dL RDW (11.5-15.5) % Plt Count (150-450) k/uL Lymphocytes # (1.0-4.8) k/uL Sodium (137-145) mmol/L Carbon Dioxide (22-30) mmol/L Glucose (74-99) mg/dL POC Glucose (mg/dL) 174 H 114 H 111 H (70-110) mg/dL Hemoglobin A1c (<=6.0) % 07/20/24 07/20/24 07/20/24 Range/Units 06:47 06:47 06:47 MCV 79.4 L (80.0-100.0) fL MCH 23.1 L (25.0-35.0) pg MCHC 29.1 L (31.0-37.0) g/dL RDW 18.9 H (11.5-15.5) % Plt Count 119 L (150-450) k/uL Lymphocytes # 0.5 L (1.0-4.8) k/uL Sodium 133 L (137-145) mmol/L Carbon Dioxide 19 L (22-30) mmol/L Glucose 128 H (74-99) mg/dL POC Glucose (mg/dL) (70-110) mg/dL Hemoglobin A1c 7.8 H (<=6.0) % 07/20/24 Range/Units 11:43 MCV (80.0-100.0) fL MCH (25.0-35.0) pg MCHC (31.0-37.0) g/dL RDW (11.5-15.5) % Plt Count (150-450) k/uL Lymphocytes # (1.0-4.8) k/uL Sodium (137-145) mmol/L Carbon Dioxide (22-30) mmol/L Glucose (74-99) mg/dL POC Glucose (mg/dL) 169 H (70-110) mg/dL Hemoglobin A1c (<=6.0) % Assessment and Plan (1) Leukocytosis Current Visit: Yes Status: Acute Code(s): D72.829 - ELEVATED WHITE BLOOD CELL COUNT, UNSPECIFIED SNOMED Code(s): 115597956 (2) Clostridium difficile colitis Current Visit: Yes Status: Acute Code(s): A04.72 - ENTEROCOLITIS D/T CLOSTRIDIUM DIFFICILE, NOT SPCF RECUR SNOMED Code(s): 867256733 (3) Diabetic foot ulcer Current Visit: Yes Status: Acute Code(s): E11.621 - TYPE 2 DIABETES MELLITUS WITH FOOT ULCER; L97.509 - NON-PRESSURE CHRONIC ULCER OTH PRT UNSP FOOT W UNSP SEVERITY SNOMED Code(s): 906641192 Plan: 1patient presented to hospital with diarrhea and abdominal pain in this patient has been recently exposed antibiotics with Augmentin for diabetic foot infection now with evidence of elevated white count abdominal distention concerning for severe C. difficile colitis 2-patient did have some improvement to continue vancomycin 250 p.o. every 6 hours avoid antimotility agent if persistent diarrhea will add Questran for symptomatic relief 3right big toe ulcer looks clean local wound care with dry Aquacel dressing change q. 48-hour discussed with the patient nurse Dictation was produced using [employer] dictation software. please excuse any grammatical, word or spelling errors. Time with Patient: Less than 30
[2024-07-20 16:31] LABS: Glucose,Whole Blood 110 mg/dL (70-110)
[2024-07-20 21:05] LABS: Glucose,Whole Blood 124 mg/dL (70-110)
[2024-07-21 06:43] LABS: Glucose,Whole Blood 135 mg/dL (70-110)
[2024-07-21 08:24] LABS: Basophils # (A) 0.02 X 10*3/uL (0.00-0.10); Basophils % (A) 0.4 %; Eosinophils # (A) 0.15 X 10*3/uL (0.04-0.35); Eosinophils % (A) 2.9 %; HCT 42.5 % (39.6-50.0); HGB 12.5 g/dL (13.0-17.0); Lymphocytes # (A) 1.02 X 10*3/uL (0.90-5.00); Lymphocytes % (A) 19.8 %; MCH 23.1 pg (27.0-32.0); MCHC 29.4 g/dL (32.0-37.0); MCV 78.4 FL (80.0-97.0); Monocytes # (A) 0.43 X 10*3/uL (0.20-1.00); Monocytes % (A) 8.3 %; NRBC Per 100 WBC 0 X 10*3/uL (0.00-0.01); Neutrophils # (A) 3.51 X 10*3/uL (1.80-7.70); Neutrophils % (A) 68.2 %; Platelet Count 118 X 10*3/uL (140-440); RBC 5.42 X 10*6/uL (4.40-5.60); RDW 20.7 % (11.5-14.5); WBC 5.15 X 10*3/uL (4.50-10.00)
[2024-07-21 08:29] LABS: BUN/Creat Ratio 11.25 Ratio (12.00-20.00); Glucose 136 mg/dL (70-110)
[2024-07-21 08:30] LABS: ALT 18 U/L (10-49); AST 24 U/L (14-35); Albumin 3.5 g/dL (3.8-4.9); Albumin/Globulin Ratio 1.75 Ratio (1.60-3.17); Alkaline Phosphatase 55 U/L (41-126); Carbon Dioxide 21.9 mmol/L (21.6-31.8); Chloride 107 mmol/L (96-109); Potassium 4.4 mmol/L (3.5-5.5); Sodium 137 mmol/L (135-145); Total Bilirubin 0.4 mg/dL (0.3-1.2); Total Protein 5.5 g/dL (6.2-8.2)
[2024-07-21 11:50] LABS: Glucose,Whole Blood 126 mg/dL (70-110)
--- NOTE | 2024-07-21 12:14 | P.PN ---
Subjective Progress Note Date: 07/21/24 Hospital Course: Patient is a 73-year-old male with past medical history of CAD with stents samson tyler, A-fib on Xarelto, HTN, HLD, hypothyroidism, GERD, type II DM on insulin, history of CVA, liver cirrhosis, colon cancer s/p bowel resection and chemotherapy in remission since 2016, presented to the ER with acute onset diarrhea started on 07/18. Patient recently finished antibiotics for his chronic wound infection. Patient reports 1 previous C. difficile infection in the past. Today complains of nausea, vomiting abdominal pain, ongoing diarrhea On arrival afebrile with elevated BP 184/94, satting well on room air, normal heart rate. Lab work significant for leukocytosis 15.0, hemoglobin count normal at 15.4, platelet count normal at 192, sodium and potassium normal, creatinine WNL, gl ucose elevated 178, urinalysis with trace proteinuria, glucosuria, this is positive for C. difficile. CT abdomen showed no acute abdominal process, hepatic cirrhosis without focal lesion, splenomegaly, colonic diverticulosis without diverticulitis, stable left adrenal gland probable adenoma, stable pancreatic body 1.5 cm lesion, prostatomegaly, stable scattered pulmonary nodules. Started on oral vancomycin, ID consulted, admitted for further management. Vancomycin dose increased to 250 every 6 hours. Abdominal pain has improved, he however continues to complain of severe abdominal pain during exam, he does not appear to be in distress, shows no signs of severe pain on physical exam, his abdomen is tender to palpation, no guarding. Diarrhea has improved significantly, he had more formed stools once. Decreased frequency of Dilaudid, patient has history of of allergy to morphine, added ketorolac for pain control, kidney function is normal, on PPIs Pertinent positives and negatives as discussed above, a complete review of systems was performed and all other systems are negative. Vitals Signs Reviewed. Vital signs reviewed General: nontoxic, no distress, appears at stated age obese Derm: warm, dry Head: atraumatic, normocephalic, symmetric Eyes: EOMI, no lid lag, anicteric sclera, pupils equal round reactive to light ENT: Nose and ears atraumatic Neck: No thyromegaly, supple Mouth: no lip lesion, mucus membranes moist Cardiovascular: S1S2 reg, no murmur, no edema Lungs: clear to auscultation bilateral, no rhonchi, no rales, no wheeze, no accessory muscle use Abdominal: Soft, generalized tenderness improved, no guarding Ext: no gross muscle atrophy, muscle strength muscle strength 5 out of 5 in all 4 extremities, no contractures, Neuro: CN II-XII grossly intact Psych: Alert, oriented, appropriate affect Data Reviewed Today: Pertinent Labs: CBC normal, hemoglobin 12.5, platelet count 111, sodium, potassium, creatinine normal, blood glucose is controlled Assessment and Plan: Severe C. difficile infection based on leukocyte count 15.0 on admissions -Continue with vancomycin 250 mg p.o. every 6 hours for 10 days SOT 07/19/2024 -ID consulted, appreciate recommendations -Continue IV fluids with NS at 75 cc/h -Symptom control with antinausea and pain medication, decrease frequency of Dilaudid from every 3 hours to every 6 hours, added ketorolac Diabetes mellitus with hyperglycemia:Continue Levemir 15 units nightly glycemic protocol with NovoLog sliding scale to maintain tight glycemic control throughout hospitalization. Anxiety, depression: resume home medications once reconciled: BuSpar 10 mg 3 times daily and Seroquel 50 mg nightly and 25 mg twice daily Chronic A-fib on Xarelto: resume home medications once reconciledContinue daily medication regimen with Xarelto 20 mg nightly. HTN:resume home medications once reconciled: Continue daily medication regimen with amlodipine 10 mg daily and lisinopril 10 mg daily. HLD:resume home medications once reconciled Continue daily medication regimen with pravastatin 40 mg nightly and fenofibrate 160 mg daily. History of CAD with stents placed:resume home medications once reconciled continue daily medication regimen with aspirin 81 mg daily, amlodipine 10 mg daily, lisinopril 10 mg daily, pravastatin 40 mg nightly, Xarelto 20 mg nightly. Chronic thrombocytopenia GERD: resume home medications once reconciled :home GI prophylaxis with Protonix 40 mg p.o. twice daily and Pepcid 20 mg daily. Chronic right great toe wound, follow-up with ID, completed antibiotics recently, uses Betadine daily Chronic cervical neck and back pain hepatic cirrhosis splenomegaly colonic diverticulosis without diverticulitis stable left adrenal gland probable adenoma stable pancreatic body 1.5 cm lesion prostatomegaly stable scattered pulmonary nodules. hx of colon cx -follow up with PCP CODE STATUS: Full code DVT prophylaxis Xarelto Anticipated discharge date: 24 hours if abdominal pain is controlled and cleared by ID Anticipated discharge place: TBD Objective - Vital Signs Vital signs: Vital Signs Temp 98.5 F 07/21/24 07:29 Pulse 72 07/21/24 07:29 Resp 17 07/21/24 07:29 BP 135/75 07/21/24 07:29 Pulse Ox 95 07/21/24 07:29 FiO2 21 07/20/24 22:18 Intake & Output 07/20/24 07/21/24 07/21/24 18:59 06:59 18:59 Output Total 400 Balance -400 Output: Urine 400 Other: Voiding Method Toilet Toilet Urinal Urinal Diaper Diaper Incontinent # Voids 3 2 # Bowel Movements 2 - Labs CBC & Chem 7: 07/21/24 05:28 07/21/24 05:28 Labs: Abnormal Lab Results - Last 24 Hours (Table) 07/20/24 07/20/24 07/21/24 Range/Units 06:47 21:04 05:28 Hgb 12.5 L (13.0-17.0) g/dL MCV 78.4 L (80.0-97.0) FL MCH 23.1 L (27.0-32.0) pg MCHC 29.4 L (32.0-37.0) g/dL RDW 20.7 H (11.5-14.5) % Plt Count 118 L (140-440) X 10*3/uL BUN/Creatinine Ratio (12.00-20.00) Ratio Glucose (70-110) mg/dL POC Glucose (mg/dL) 124 H (70-110) mg/dL Hemoglobin A1c 7.8 H (<=6.0) % Total Protein (6.2-8.2) g/dL Albumin (3.8-4.9) g/dL 07/21/24 07/21/24 07/21/24 Range/Units 05:28 06:42 11:45 Hgb (13.0-17.0) g/dL MCV (80.0-97.0) FL MCH (27.0-32.0) pg MCHC (32.0-37.0) g/dL RDW (11.5-14.5) % Plt Count (140-440) X 10*3/uL BUN/Creatinine Ratio 11.25 L (12.00-20.00) Ratio Glucose 136 H (70-110) mg/dL POC Glucose (mg/dL) 135 H 126 H (70-110) mg/dL Hemoglobin A1c (<=6.0) % Total Protein 5.5 L (6.2-8.2) g/dL Albumin 3.5 L (3.8-4.9) g/dL
--- NOTE | 2024-07-21 15:30 | P.PN ---
Subjective Progress Note Date: 07/21/24 Principal diagnosis: Reason for follow-up is C. difficile colitis Patient is a 73-year-old male with a past medical history significant for hypertension hyperlipidemia diabetes mellitus CVA TIA coronary artery disease did have a previous history of C. difficile colitis patient has been dealing with a diabetic foot infection in this patient who is status post partial amputation of the right big toe subsequent developing cellulitis with Streptococcus treated with the Augmentin now presenting with the diarrhea has been diagnosed with a C. difficile colitis probably this consultation. On today's evaluation that is 07/21/2024, patient has been afebrile, patient is breathing comfortably and is currently on room air, patient denies having any significant cough no chest pain, patient denies nausea vomiting abdominal pain has resolved and diarrhea has slowed down as reported by the patient and the nursing staff. Patient white count is 5.15, creatinine 0.8 Objective - Vital Signs Vital signs: Vital Signs Temp 98.5 F 07/21/24 07:29 Pulse 72 07/21/24 07:29 Resp 17 07/21/24 07:29 BP 135/75 07/21/24 07:29 Pulse Ox 95 07/21/24 07:29 FiO2 21 07/20/24 22:18 Intake & Output 07/20/24 07/21/24 07/21/24 18:59 06:59 18:59 Output Total 400 Balance -400 Output: Urine 400 Other: Voiding Method Toilet Toilet Urinal Urinal Diaper Diaper Incontinent # Voids 3 2 # Bowel Movements 2 - Exam GENERAL DESCRIPTION: An elderly male lying in bed in no distress RESPIRATORY SYSTEM: Unlabored breathing , decreased breath sounds at bases HEART: S1 S2 regular rate and rhythm , ABDOMEN: Soft , no tenderness EXTREMITIES: Right big toe wound currently dressed - Labs CBC & Chem 7: 07/21/24 05:28 07/21/24 05:28 Labs: Abnormal Lab Results - Last 24 Hours (Table) 07/20/24 07/20/24 07/21/24 Range/Units 06:47 21:04 05:28 Hgb 12.5 L (13.0-17.0) g/dL MCV 78.4 L (80.0-97.0) FL MCH 23.1 L (27.0-32.0) pg MCHC 29.4 L (32.0-37.0) g/dL RDW 20.7 H (11.5-14.5) % Plt Count 118 L (140-440) X 10*3/uL BUN/Creatinine Ratio (12.00-20.00) Ratio Glucose (70-110) mg/dL POC Glucose (mg/dL) 124 H (70-110) mg/dL Hemoglobin A1c 7.8 H (<=6.0) % Total Protein (6.2-8.2) g/dL Albumin (3.8-4.9) g/dL 07/21/24 07/21/24 07/21/24 Range/Units 05:28 06:42 11:45 Hgb (13.0-17.0) g/dL MCV (80.0-97.0) FL MCH (27.0-32.0) pg MCHC (32.0-37.0) g/dL RDW (11.5-14.5) % Plt Count (140-440) X 10*3/uL BUN/Creatinine Ratio 11.25 L (12.00-20.00) Ratio Glucose 136 H (70-110) mg/dL POC Glucose (mg/dL) 135 H 126 H (70-110) mg/dL Hemoglobin A1c (<=6.0) % Total Protein 5.5 L (6.2-8.2) g/dL Albumin 3.5 L (3.8-4.9) g/dL Assessment and Plan (1) Leukocytosis Current Visit: Yes Status: Acute Code(s): D72.829 - ELEVATED WHITE BLOOD CELL COUNT, UNSPECIFIED SNOMED Code(s): 550827673 (2) Clostridium difficile colitis Current Visit: Yes Status: Acute Code(s): A04.72 - ENTEROCOLITIS D/T CLOSTRIDIUM DIFFICILE, NOT SPCF RECUR SNOMED Code(s): 294182839 (3) Diabetic foot ulcer Current Visit: Yes Status: Acute Code(s): E11.621 - TYPE 2 DIABETES MELLITUS WITH FOOT ULCER; L97.509 - NON-PRESSURE CHRONIC ULCER OTH PRT UNSP FOOT W UNSP SEVERITY SNOMED Code(s): 903540754 Plan: 1patient presented to hospital with diarrhea and abdominal pain in this patient has been recently exposed antibiotics with Augmentin for diabetic foot infection now with evidence of elevated white count abdominal distention concerning for severe C. difficile colitis 2-patientright big toe ulcer looks clean local wound care with dry Aquacel dressing change q. 48-hour 3-patient diarrhea slowing down the patient white count normalized we will continue patient on oral vancomycin and if continue to improve to finish therapy with a 10-day course of oral vancomycin and a close outpatient follow-up discussed with the at the bedside Dictation was produced using [employer] dictation software. please excuse any grammatical, word or spelling errors. Time with Patient: Less than 30
[2024-07-21 16:50] LABS: Glucose,Whole Blood 130 mg/dL (70-110)
[2024-07-21] MEDS: KETOROLAC 15 MG/ML 1 ML VIAL IVP PRN (17:02)
[2024-07-21 20:11] LABS: Glucose,Whole Blood 143 mg/dL (70-110)
[2024-07-21] MEDS: HYDROmorphone 1 MG/ML 1 ML SYRINGE IVP PRN (21:30)
[2024-07-22 01:30] VITALS: RESP 18
[2024-07-22 06:30] LABS: Glucose,Whole Blood 126 mg/dL (70-110)
[2024-07-22 07:55] VITALS: BP 116/70; PULSE 56; TEMP 97.3
[2024-07-22 10:52] LABS: Basophils # (A) 0.02 X 10*3/uL (0.00-0.10); Basophils % (A) 0.4 %; Eosinophils # (A) 0.19 X 10*3/uL (0.04-0.35); Eosinophils % (A) 3.7 %; HCT 48.1 % (39.6-50.0); HGB 13.9 g/dL (13.0-17.0); Lymphocytes # (A) 1.32 X 10*3/uL (0.90-5.00); Lymphocytes % (A) 25.5 %; MCH 22.9 pg (27.0-32.0); MCHC 28.9 g/dL (32.0-37.0); MCV 79.4 FL (80.0-97.0); Mean Platelet Volume 10.3 FL (9.5-12.2); Monocytes # (A) 0.29 X 10*3/uL (0.20-1.00); Monocytes % (A) 5.6 %; NRBC Per 100 WBC 0 X 10*3/uL (0.00-0.01); Neutrophils # (A) 3.32 X 10*3/uL (1.80-7.70); Neutrophils % (A) 64.2 %; Platelet Count 120 X 10*3/uL (140-440); RBC 6.06 X 10*6/uL (4.40-5.60); RDW 21.1 % (11.5-14.5); WBC 5.17 X 10*3/uL (4.50-10.00)
[2024-07-22 11:28] LABS: Glucose,Whole Blood 158 mg/dL (70-110)
[2024-07-22 12:21] LABS: Blood Urea Nitrogen 9.4 mg/dL (9.0-27.0); Chloride 104 mmol/L (96-109); Glucose 133 mg/dL (70-110); Potassium 4.4 mmol/L (3.5-5.5); Sodium 138 mmol/L (135-145)
[2024-07-22 12:22] LABS: ALT 20 U/L (10-49); AST 26 U/L (14-35); Albumin 3.9 g/dL (3.8-4.9); Albumin/Globulin Ratio 1.56 Ratio (1.60-3.17); Alkaline Phosphatase 68 U/L (41-126); Calcium 9.7 mg/dL (8.7-10.3); Carbon Dioxide 21.1 mmol/L (21.6-31.8); Globulin 2.5 g/dL (1.6-3.3); Total Bilirubin 0.4 mg/dL (0.3-1.2); Total Protein 6.4 g/dL (6.2-8.2)
--- NOTE | 2024-07-22 13:30 | P.PN ---
Subjective Progress Note Date: 07/22/24 Principal diagnosis: Reason for follow-up is C. difficile colitis Patient is a 73-year-old male with a past medical history significant for hypertension hyperlipidemia diabetes mellitus CVA TIA coronary artery disease did have a previous history of C. difficile colitis patient has been dealing with a diabetic foot infection in this patient who is status post partial amputation of the right big toe subsequent developing cellulitis with Streptococcus treated with the Augmentin now presenting with the diarrhea has been diagnosed with a C. difficile colitis probably this consultation. On today's evaluation that is 07/22/2024, Patient is afebrile this morning patient denies having any chest pain shortness of breath or cough, the patient is currently on room air, patient denies any abdominal pain and did have resolution of his diarrhea feeling better wants to go home. Patient white count is 5.17, creatinine 1.0 Objective - Vital Signs Vital signs: Vital Signs Temp 97.3 F L 07/22/24 07:25 Pulse 56 L 07/22/24 07:25 Resp 18 07/22/24 07:25 BP 116/70 07/22/24 07:25 Pulse Ox 98 07/22/24 07:25 FiO2 21 07/22/24 04:09 Intake & Output 07/21/24 07/22/24 07/22/24 18:59 06:59 18:59 Intake Total 420 Balance 420 Intake: Oral 420 Other: Voiding Method Toilet Toilet Urinal Urinal Diaper Diaper # Voids 3 # Bowel Movements 1 - Exam GENERAL DESCRIPTION: An elderly male lying in bed in no distress RESPIRATORY SYSTEM: Unlabored breathing , decreased breath sounds at bases HEART: S1 S2 regular rate and rhythm , ABDOMEN: Soft , no tenderness EXTREMITIES: Right big toe wound base is clean no surrounding redness - Labs CBC & Chem 7: 07/22/24 05:56 07/22/24 05:56 Labs: Abnormal Lab Results - Last 24 Hours (Table) 07/21/24 07/21/24 07/21/24 Range/Units 11:45 16:43 20:09 RBC (4.40-5.60) X 10*6/uL MCV (80.0-97.0) FL MCH (27.0-32.0) pg MCHC (32.0-37.0) g/dL RDW (11.5-14.5) % Plt Count (140-440) X 10*3/uL POC Glucose (mg/dL) 126 H 130 H 143 H (70-110) mg/dL 07/22/24 07/22/24 Range/Units 05:56 06:26 RBC 6.06 H (4.40-5.60) X 10*6/uL MCV 79.4 L (80.0-97.0) FL MCH 22.9 L (27.0-32.0) pg MCHC 28.9 L (32.0-37.0) g/dL RDW 21.1 H (11.5-14.5) % Plt Count 120 L (140-440) X 10*3/uL POC Glucose (mg/dL) 126 H (70-110) mg/dL Assessment and Plan (1) Leukocytosis Current Visit: Yes Status: Acute Code(s): D72.829 - ELEVATED WHITE BLOOD CELL COUNT, UNSPECIFIED SNOMED Code(s): 463607578 (2) Clostridium difficile colitis Current Visit: Yes Status: Acute Code(s): A04.72 - ENTEROCOLITIS D/T CLOSTRIDIUM DIFFICILE, NOT SPCF RECUR SNOMED Code(s): 105335699 (3) Diabetic foot ulcer Current Visit: Yes Status: Acute Code(s): E11.621 - TYPE 2 DIABETES MELLITUS WITH FOOT ULCER; L97.509 - NON-PRESSURE CHRONIC ULCER OTH PRT UNSP FOOT W UNSP SEVERITY SNOMED Code(s): 186214661 Plan: 1patient presented to hospital with diarrhea and abdominal pain in this patient has been recently exposed antibiotics with Augmentin for diabetic foot infection now with evidence of elevated white count abdominal distention concerning for severe C. difficile colitis 2-patientright big toe ulcer looks clean local wound care with dry Aquacel dressing change q. 48-hour 3-patient mention improvement in his symptoms we will finish therapy with a 10- day course of oral vancomycin and a close outpatient follow-up discussed with admitting physician Dictation was produced using [employer] software. please excuse any grammatical, word or spelling errors.
--- NOTE | 2024-07-22 14:26 | P.DS ---
Providers Date of admission: 07/19/24 13:42 Expected date of discharge: 07/22/24 Attending physician: Girma Leos Consults: 07/19/24 13:41 Consult Physician Urgent Consulting Provider: Ramon Wilkerson Consult Reason/Comments: C. difficile Do you want consulting provider notified?: Yes Primary care physician: [facility] Course: 73-year-old male with past medical history of CAD with stents placed, A-fib on Xarelto, HTN, HLD, hypothyroidism, GERD, type II DM on insulin, history of CVA, liver cirrhosis, colon cancer s/p bowel resection and chemotherapy in remission since 2016, presented to the ER with acute onset diarrhea started on 07/18. Patient recently finished antibiotics for his chronic wound infection. Patient reports 1 previous C. difficile infection in the past. Today complains of nausea, vomiting abdominal pain, ongoing diarrhea. In the ED he underwent extensive evaluation. BP 184/94, HR 80, RR 18, T 98.1F, 98% on RA. CBC, CMP significant for WBC 15, RBC 6.71, Hct 53.1, MCV 79, glu 178, Ca 10.7. Amylase and Lipase neg. UA trace LE. C. diff positive. CT AP hepatic cirrhosis, splenomegaly, diverticulosis, left adrenal adenoma, 1.5 cm lesion in the pancreatic body. Started on Vancomycin and ID consulted. Symptoms improved. 3/4 Patient was seen and examined. Wanting to go home. Doing well. CBC, BMP significant for RBC 6.06, MCV 79.4, Plt 120, bicarb 21.1, AG 12.9, glu 133, alb/globulin 1.56. Discussed with BETZY Hylton for discharge on PO Vancomycin x 10 days. General: non toxic, no distress, appears at stated age Derm: warm, dry Head: atraumatic, normocephalic, symmetric Eyes: EOMI, no lid lag, anicteric sclera Mouth: no lip lesion, mucus membranes moist Cardiovascular: S1S2 reg, no murmur Lungs: CTA bilateral, no rhonchi, no rales , no accessory muscle use Ext: no gross muscle atrophy, no edema, no contractures Neuro: no focal neuro deficits Psych: Alert and oriented. Discharge Diagnosis: Sepsis due to C. difficile colitis Diabetes mellitus with hyperglycemia Anxiety, depression Chronic A-fib on Xarelto HTN HLD History of CAD with stents Chronic thrombocytopenia GERD Chronic right great toe wound Chronic cervical neck and back pain Hepatic cirrhosis Splenomegaly Diverticulosis Left adrenal gland probable adenoma Pancreatic body 1.5 cm lesion Prostatomegaly Scattered pulmonary nodules. History of colon CA This complex discharge took 35 minutes to complete. Patient Condition at Discharge: Stable Plan - Discharge Summary Discharge Rx Participant: No New Discharge Prescriptions: New Acetaminophen Tab [Tylenol] 650 mg PO Q6HR PRN tab PRN Reason: Fever And/ Or Pain HYDROcodone/APAP 5-325MG [Tracy 5-325] 1 tab PO Q6HR PRN 3 Days #12 tab PRN Reason: Breakthrough Pain Vancomycin HCl [Vancocin HCl] 250 mg PO QID #40 cap Continue Pravastatin Sodium [Pravachol] 40 mg PO HS Potassium Chloride [Klor-Con 20] 20 meq PO DAILY allopurinoL [Zyloprim] 100 mg PO HS Sertraline HCl [Zoloft] 200 mg PO DAILY Rivaroxaban [Xarelto] 20 mg PO HS Temazepam [Restoril] 7.5 mg PO HS Ziprasidone [Geodon] 40 mg PO BID Insulin Glargine,Hum.rec.anlog [Insulin Glargine Solostar] 20 unit SQ DAILY Tamsulosin HCl [Flomax] 0.4 mg PO HS Empagliflozin [Jardiance] 25 mg PO DAILY Pantoprazole [Protonix] 40 mg PO BID glipiZIDE [Glucotrol] 20 mg PO AC-BID LORazepam [Ativan] 2 mg PO BID Fenofibrate [Lofibra] 160 mg PO DAILY 30 Days #30 tab lisinopriL [Zestril] 10 mg PO DAILY #30 tab [place] Carbonate ER [Lithobid] 450 mg PO HS Dicyclomine [Bentyl] 20 mg PO TID PRN PRN Reason: Gi Upset Aspirin EC [Ecotrin Low Dose] 81 mg PO DAILY Discharge Medication List Potassium Chloride [Klor-Con 20] 20 meq PO DAILY 01/15/14 [History] Pravastatin Sodium [Pravachol] 40 mg PO HS 01/15/14 [History] allopurinoL [Zyloprim] 100 mg PO HS 07/28/15 [History] Sertraline HCl [Zoloft] 200 mg PO DAILY 11/05/15 [History] Rivaroxaban [Xarelto] 20 mg PO HS 07/27/17 [History] Empagliflozin [Jardiance] 25 mg PO DAILY 06/10/21 [History] Pantoprazole [Protonix] 40 mg PO BID 06/10/21 [History] glipiZIDE [Glucotrol] 20 mg PO AC-BID 08/14/22 [History] LORazepam [Ativan] 2 mg PO BID 08/11/23 [History] Fenofibrate [Lofibra] 160 mg PO DAILY 30 Days #30 tab 11/27/23 [Rx] Temazepam [Restoril] 7.5 mg PO HS 02/11/24 [History] lisinopriL [Zestril] 10 mg PO DAILY #30 tab 02/14/24 [Rx] Ziprasidone [Geodon] 40 mg PO BID 03/14/24 [History] Dicyclomine [Bentyl] 20 mg PO TID PRN 05/30/24 [History] Insulin Glargine,Hum.rec.anlog [Insulin Glargine Solostar] 20 unit SQ DAILY 05/30/24 [History] [place] Carbonate ER [Lithobid] 450 mg PO HS 05/30/24 [History] Aspirin EC [Ecotrin Low Dose] 81 mg PO DAILY 07/19/24 [History] Tamsulosin HCl [Flomax] 0.4 mg PO HS 07/19/24 [History] Acetaminophen Tab [Tylenol] 650 mg PO Q6HR PRN tab 07/22/24 [Rx] HYDROcodone/APAP 5-325MG [Tracy 5-325] 1 tab PO Q6HR PRN 3 Days #12 tab 07/22/24 [Rx] Vancomycin HCl [Vancocin HCl] 250 mg PO QID #40 cap 07/22/24 [Rx] Follow up Appointment(s)/Referral(s): None,Stated [REFERRING] - 1-2 days Ramon Wilkerson MD [STAFF PHYSICIAN] - 1 Week (Office will be calling you with your follow-up appt. Thank you.) Discharge Disposition: HOME SELF-CARE
== END 2024-07-22 14:10 | disposition home or self-care (01) | DRG 872 ==
LOC: SUPCPDRO 10:11 → EC 10:11 → 4SSUR 13:42
PROVIDERS: ADMIT Student in an Organized Health Care Education/Training Program; ATTEND Student in an Organized Health Care Education/Training Program
DX: A41.4 Sepsis due to anaerobes (principal); A04.72 Enterocolitis due to Clostridium difficile, not specified as recurrent; D69.6 Thrombocytopenia, unspecified; K74.60 Unspecified cirrhosis of liver; I48.20 Chronic atrial fibrillation, unspecified; F31.9 Bipolar disorder, unspecified; E11.65 Type 2 diabetes mellitus with hyperglycemia; E03.9 Hypothyroidism, unspecified; I10 Essential (primary) hypertension; Z79.4 Long term (current) use of insulin; E11.621 Type 2 diabetes mellitus with foot ulcer; L97.519 Non-pressure chronic ulcer of other part of right foot with unspecified severity; E78.5 Hyperlipidemia, unspecified; F41.9 Anxiety disorder, unspecified; K21.9 Gastro-esophageal reflux disease without esophagitis; I25.10 Atherosclerotic heart disease of native coronary artery without angina pectoris; N40.0 Benign prostatic hyperplasia without lower urinary tract symptoms; K57.30 Diverticulosis of large intestine without perforation or abscess without bleeding; D35.02 Benign neoplasm of left adrenal gland; K86.9 Disease of pancreas, unspecified; I25.2 Old myocardial infarction; Z79.01 Long term (current) use of anticoagulants; Z79.82 Long term (current) use of aspirin; Z79.84 Long term (current) use of oral hypoglycemic drugs; Z79.899 Other long term (current) drug therapy; Z95.5 Presence of coronary angioplasty implant and graft; Z86.73 Personal history of transient ischemic attack (TIA), and cerebral infarction without residual deficits; Z87.891 Personal history of nicotine dependence; Z90.49 Acquired absence of other specified parts of digestive tract; Z85.038 Personal history of other malignant neoplasm of large intestine
CPT/HCPCS: 36415; 74177; 80053; 81001; 82150; 83036; 83690; 85025; 87324; 94660; 96361; 96374; 96375; 96376; 99285

== ENCOUNTER → 2024-08-06 | Outpatient (CLI) | payer OTHER | END | disposition home or self-care (01) | LOC: LABWHC1 13:27 | PROVIDERS: ATTEND Family Medicine | DX: Z01.812 Encounter for preprocedural laboratory examination (principal); Z22.322 Carrier or suspected carrier of Methicillin resistant Staphylococcus aureus; M50.00 Cervical disc disorder with myelopathy, unspecified cervical region | CPT/HCPCS: 87070 ==

== ENCOUNTER → 2024-08-11 | Outpatient (CLI) | payer MEDICARE ==
--- NOTE | 2024-08-11 13:47 | CT ---
EXAMINATION TYPE: CT sinus wo con CT DLP: 581.4 mGycm, Automated exposure control for dose reduction was used. DATE OF EXAM: 08/11/2024 1:31 PM COMPARISON: MRI brain 11/23/2023, CT ([id number], CT brain 11/20/2023, 08/11/2023, CT sinus 02/24/2019. CLINICAL INDICATION:Male, 73 years old with history of R20.2 PARESTHESIA OF SKIN; PHH, Left side faci al pain CONTRAST: None. TECHNIQUE: Multiple thin axial images were obtained through the paranasal sinuses without the use of IV contrast. Additional coronal and sagittal reformatted images were submitted for evaluation. FINDINGS: Frontal sinuses: Normally developed and aerated. Frontal Recess: Clear Maxillary Sinuses: Normally developed. 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 The right maxillary sinus is clear. Subcentimeter left maxillary mucous retention cyst. Otherwise the left maxillary sinus is clear. Maxillary Infundibula([facility]): Postsurgical changes and clear. No Ciera cells. Ethmoid sinuses: Normally developed and aerated. Suspected postsurgical bilateral posterior ethmoid s inuses. Minimal mucosal thickening bilaterally. Ethmoidal notch: Supraorbital pneumatization is ident ified. Sphenoid sinuses: Normally developed and aerated. There is partial seller sphenoid sinus pneumatizati on without evidence of dehiscence. No dehiscence of carotid canal. No evidence of optic nerve dehisc ence within the sphenoid sinus. Sphenoethmoidal recesses: Clear with suspected postsurgical change. Nasal septum: Within normal limits.. Nasal Turbinates: Within normal limits. Mastoid air cells & middle ears: The air cells are clear. The middle ears are grossly unremarkable. Modified Soft tissues & Brain: Partially seen without gross abnormality. Age-related cerebral atrophy . Bilateral aphakia. Other: Cribriform plate demonstrates symmetric Keros classification type 3 cribriform plate. No evidence of bony dehiscence of skull base. Lamina papyracea is intact without evidence of remote orbital fracture or orbital prolapse into the e thmoid sinus. IMPRESSION: Postsurgical changes with no significant mucosal sinus disease. [facility], , 08/11/2024 1:45 PM
== END | disposition home or self-care (01) ==
LOC: RADCTMAIN 13:15
PROVIDERS: ATTEND Otolaryngology
DX: R20.2 Paresthesia of skin (principal); H27.03 Aphakia, bilateral; G31.1 Senile degeneration of brain, not elsewhere classified; Z98.890 Other specified postprocedural states
CPT/HCPCS: 70486

== ENCOUNTER 2024-08-12 07:20 | Day surgery (SDC) | payer OTHER ==
[2024-08-07 12:47] VITALS: BMI 21.8
[~2024-08-12 07:20] MED LIST changes: +GABAPENTIN 300 MG CAP PO PRN; -REGADENOSON 0.4 MG/5 ML SYRINGE IV ONE; +TRANEXAMIC 1,000 MG/100ML-NACL 1,000 MG in SALINE 1 100ML.BAG IVPB PRN
--- NOTE | 2024-08-12 07:23 | P.HPOR ---
History of Present Illness H&P Date: 08/06/24 .D:Date: 08/06/24 : 01:42pm .T:Title: *PRE-OP H1 [facility] [address] [place] [id number]| PROVIDER: TINO JARVIS DO CLINICAL SUMMARY: *Mr. Patel is a 73-year-old male who presents to the office for a pre-operative appointment preceding his scheduled C3-4 ACDF. The patient reports progressive cervical myelopathy with severe neck pain (VAS 6/10) radiating bilaterally to upper extremities, accompanied by numbness, tingling, and significant neurological symptoms including headaches, blurred vision, and gait instability requiring ambulatory assistance. Imaging studies reveal C3-4 large HNP with severe central and bilateral foraminal stenosis, myelomalacia, and significant degenerative changes. Conservative management including PT, home exercise, and activity modification has provided minimal relief. After thorough discussion of surgical risks and benefits, patient has elected to proceed with C3-4 anterior cervical decompression and fusion. Pre-operative medical clearance has been ordered through PCP, with particular attention to management of comorbidities including Type II diabetes and A-fib. Patient understands all surgical risks and post-operative protocol. Surgery will be scheduled upon receipt of medical clearance. DEMOGRAPHICS: Age: 73 year Height: 5'9" Weight: 243 lbs BP:128/70 BMI: 35.88 kg/m2 Occupation: *Retired CC: *cervical pain VAS: * 6 HISTORY: Mr. Patel presents to the office today, 08/06/24, for *a pre-operative appointment preceding his C3-4 ACDF. The patient reports experiencing a constant ache-like, throbbing pain around the posterior neck that radiates down into the bilateral upper extremities with a sharp, shooting quality. He states his upper extremity pain is associated with numbness and tingling bilaterally. He notes these symptoms have been ongoing and worsening over the last several years without any known injury or trauma to indicate an exact date of onset. He states his symptoms have worsened and become severe over the last 1 year. The patient states his symptoms worsen after all activity. He notes onset of headaches, blurred, and double vision over the last 6 months. He notes intermittent imbalance. He states he is unable to walk long distances due to worsening imbalance and intolerable neck pain. He reports experiencing severe sleep disturbances related to his ongoing pain and associated symptoms. He has trialed all conservative measures listed below with only mild, temporary relief. Patient ambulates with a cane. * Patient denies any f/c/sob/cp, perineal numbness or tingling, bowel, or bladder incontinence/retention. * The patients past social, medical, family, surgical history, as well as review of systems, have been reviewed. Please refer to the History and Physical form that has been scanned into our electronic medical record system. * 16 points review of systems completed and as stated in HPI, all other systems reviewed are negative. PAST TREATMENTS: PAST IMAGING: - Yes, xray and MRI TRAUMA RELATED: - No WORK RELATED: - No PT IN LAST 6 MONTHS: - Yes; no significant relief PHYSICIAN DIRECTED HOME EXERCISE PROGRAM: - Yes; no significant relief ACTIVITY MODIFICATION: - Yes; dropping items, unable to grasp objects, limits lifting MEDICATIONS: - None ALTERNATIVE INTERVENTIONS (CHIROPRACTIC, ACUPUNCTURE, MASSAGE, RICE): - Yes (home heat/ice therapies & rest); mild, temporary relief BRACING: - No INJECTIONS (SABA, TF, RFA): - None MEDICAL HISTORY: Past Medical History: Type II diabetes Depression Anxiety A-fib P1 Surgical / Procedural History: Knee 1970 Stent 2007 Colon resection 2017 P1 Past Surgical History: No h/o spine surgery Social History: [id number]: never a smoker P3 Alcohol: none P3 Family History: Mother: alzheimer's disease. P2 Father: P2 Sibling(s): alive & well. P2 Family History: esophageal P2 P1 Current Medications: Rx: allopurinoL 100 mg tablet Ref: 0 Instructions: take 1 tablet (100 mg) by oral route once daily Rx: empagliflozin 25 mg tablet Ref: 0 Instructions: take 1 tablet (25 mg) by oral route once daily in the morning Rx: famotidine 20 mg tablet Ref: 0 Instructions: take 1 tablet (20 mg) by oral route 2 times per day Rx: fenofibrate 160 mg tablet Ref: 0 Instructions: take 1 tablet (160 mg) by oral route once daily Rx: glipiZIDE Ref: 0 Rx: Klor-Con Ref: 0 Rx: Lantus Solostar U-100 Insulin Ref: 0 Rx: lisinopriL 10 mg tablet Ref: 0 Instructions: take 1 tablet (10 mg) by oral route once daily Rx: LORazepam 2 mg tablet Ref: 0 Instructions: take 1 tablet (2 mg) by oral route 2 times per day as needed Rx: pantoprazole 40 mg tablet,delayed release Ref: 0 Instructions: take 1 tablet (40 mg) by oral route once daily Rx: pravastatin 80 mg tablet Ref: 0 Instructions: take 1 tablet (80 mg) by oral route once daily Rx: rivaroxaban 20 mg tablet Ref: 0 Instructions: take 1 tablet (20 mg) by oral route once daily with the evening meal Rx: sertraline 100 mg tablet Ref: 0 Instructions: take 2 tablet (100 mg) by oral route once daily Rx: temazepam 15 mg capsule Ref: 0 Instructions: take 1 capsule (15 mg) by oral route once daily at bedtime as needed P1 PHYSICAL EXAM: General: AOX3, NAD, Well hydrate, well nourished, in no acute distress HEENT: No lumps or masses Extremities: No color changes, no pooling INTEGUMENT: Appearance:Normal color and turgor Surgical Incisions: None Hairy Patches: ABSENT Dorsal Skin Dimples: Normal [employer] spots: ABSENT PALPATION: TTP Midline:NO Paracervical:YES Parathoracic:NO Paralumbar:NO SIJ TESTING: TTP (NONE) POSTURAL BALANCE: Coronal:BALANCED Sagittal:BALANCED Shoulder height: LEVEL Pelvic Girdle: LEVEL ROM AND APPEARANCE: Neck: RESTRICTED Lumbar:UNRESTRICTED Shoulders: Symmetrical Hips: Symmetrical Knees: Symmetrical Hands: Symmetrical Feet: Symmetrical ATROPHY OF LEFT CALF VASCULAR STATUS: PALPABLE PULSES B/L UE AND LE 2/4 RAD/ULNAR/DP/PT Edema: NONE NEUROLOGICAL EXAMINATION: Mental Status: Awake, alert, oriented fully with normal attention, concentration and memory. Fluent appropriate speech. CRANIAL NERVES: I: Olfactory not tested. II: Visual acuity normal, no visual field deficit noted with confrontation. III,IV: Normal pupillary reflexes & intact extraocular movements without nystag mus. V,: Intact symmetrical facial sensation. VII: Intact symmetrical facial motor movementVIII: Hearing intact. IX,X: Intact gag, swallow, & normal voice. XI: Sternocleidomastoid, trapezius function intact. XII: Tongue midline with normal movements. TENSIONING: L'HERMITTE'S SIGN NEG SPURLUNG'S SIGN POS CUBITAL COMPRESSION NEG TINELS AT WRIST NEG SLR/CROSSED SLR NEG MOTOR EXAM (0-5/5, NT) Muscle appearance: Symmetrical, without signs of atrophy or dystrophy UPPER EXTREMITY RIGHT LEFT Shoulder Abduction 4- 4 Biceps 4- 4 Triceps 4 4 Wrist Extension 4 4 Hand Intrnsics 4 4 Research Geologist 4 4 LOWER EXTREMITY RIGHT LEFT Hip Flexion 5 5 Knee Extension 5 5 Knee Flexion 5 5 Dorsiflexion 5 5 Plantarflexion 5 5 EHL 5 5 FHL 5 5 REFLEXES (0-4/2, NT): RIGHT LEFT Bicep 1 1 Brachioradialis 1 1 Tricep 1 1 Patellar 2 2 Achilles 2 2 PATHOLOGICAL REFLEXES: RIGHT LEFT CHEN'S PRESENT PRESENT CLONUS ABSENT ABSENT BABINSKI ABSENT ABSENT RECTAL TONE: INTACT SENSATION (0-4, NT): Sensation intact to LT and Pain * C5-T1 distribution BUE * L2-S2 distribution BLE *exceptions below* DERMATOMAL DEFICIT/RADICULAR PATTERN: C3-C4 GAIT AND FUNCTIONAL EVALUATION: AMBULATORY AID Wheelchair ROMBERG'S TEST INTACT HAND AND FINGER DEXTERITY INTACT NO DYSDIADOCHOKINESIA EXAM NEG B/L NO TOE/HEEL WALK INTACT WITH GOOD BALANCE NO, UNSTEADY SQUAT AND RISE W/O ASSISTANCE TO 60 DEG KNEE FLEXION NO SINGLE LEG STANCE NOT ABLE TREN[place]BURG NEG IMAGING: XRAY Date: 11/28/2023 Location: [facility] Region: Cervical Views: ap/lat/flex/ext/oblique FINDINGS: Overall fairly well maintained alignment. There is collapse of the C3-4 segment noted with facet arthrosis, disc height loss, anterior osteophyte formation as well as posterior osteophytes. There is foraminal stenosis. There is no fractures noted. C0-1 and C1-2 are stable. MRI Date: 11/26/2023 Location: [facility] Region:Cervical Contrast:N FINDINGS: Images reviewed with pt. These demonstrate C3-4 large HNP with central and b/l foraminal stenosis that is severe. There is myelomalacia at this level that is spreading from the C3-4 disc region into the C4 posterior superior body region. There is ligamental hypertrophy as well contributing to some of the stenosis. There is collapse of the disc space as well as degenerative changes, facet arthrosis and spondylosis. No fractures. No lesions. Remainder of the cervical spine shows varying degress of mild to moderate spondylotic changes with out significant stenosis. IMPRESSION: It was my pleasure to have seen and examinedDaniel. I reviewed the patient's clinical syndrome, physical findings, and imaging studies during the appointment today. It is my impression that the patient has a diagnosis of. 1. 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 Cervical myelopathy 3. Headaches PLAN: DISCUSSION: -We discussed again the risks of surgery as below. -I have discussed treatment in the form of operative versus non-operative measures. Presently, I have recommended surgical intervention in the form of a C3-4 anterior cervical decompression and fusion secondary to his progressive cervical myelopathy and disc herniation with stenosis at C3-4. The patient verbally understands all risks, benefits, and alternatives to the procedure. The patient will obtain all necessary preoperative testing and clearances prior to his scheduled surgery date. THERAPIES -Cont with ice as warranted -Cont with supplementation Vit D, Vit C, Ca2+, High protein diet ACTIVITY -Avoid excessive or heavy BLPPT MEDICATIONS -Take as directed -Cont home medications as directed by your PCP. Check with your PCP for any medication interactions or issues if needed. SURGICAL RECOMMENDATION -C3-4 ANTERIOR CERVICAL DECOMPRESSION AND FUSION Spine Surgery Risk Review Mr. Patel is presenting for evaluation of neck and bilateral upper extremity pain. It was my pleasure to have seen and examined Mr. Patel. In our visit today we have had a chance to go over subjective complaints, physical examination findings and treatments including the natural course history without intervention and various interventional options. The patients imaging demonstrates: XRAY Date: 11/28/2023 Location: [facility] Region: Cervical Views: ap/lat/flex/ext/oblique FINDINGS: Overall fairly well maintained alignment. There is collapse of the C3-4 segment noted with facet arthrosis, disc height loss, anterior osteophyte formation as well as posterior osteophytes. There is foraminal stenosis. There is no fractures noted. C0-1 and C1-2 are stable. MRI Date: 11/26/2023 Location: [facility] Region:Cervical Contrast:N FINDINGS: Images reviwed with pt. These demonstrate C3-4 large HNP with central and b/l foraminal stenosis that is severe. There is myelomalacia at this level that is spreading from the C3-4 disc region into the C4 posterior superior body region. There is ligamental hypertrophy as well contributing to some of the stenosis. There is collapse of the disc space as well as degenerative changes, facet arthrosis and spondylosis. No fractures. No lesions. Remainder of the cervical spine shows varying degress of mild to moderate spondylotic changes with out significant stenosis. On physical exam, Mr. Patel demonstrates: A constant ache-like, throbbing pain around the posterior neck that radiates down into the bilateral upper extremities with a sharp, shooting quality. He states his upper extremity pain is associated with numbness and tingling bilat erally. He notes these symptoms ave been ongoing and worsening over the last several years without any known injury or trauma to indicate an exact date of onset. He states his symptoms have worsened and become severe over the last 5 to 6 months. The patient states his symptoms worsen after all activity. He notes onset of headaches, blurred, and double vision over the last 1 to 2 months. He notes intermittent imbalance. He states he is unable to walk long distances due to worsening imbalance and intolerable neck pain. He reports experiencing severe sleep disturbances related to his ongoing pain and associated symptoms. I have explained to the patient that as their condition progresses it will cause further neurological deficits and eventual paralysis. Based on the patients imag ing, physical exam, and the rapid progression and disabling nature of their symptoms, at this time I recommend surgery in the form of a: C3-4 ANTERIOR CERVICAL DECOMPRESSION & FUSION. I discussed the risk and benefits of this procedure at length with Mr. Patel. The patient agreed to considered pursuing the procedure abovementioned. Prior to surgery, she should follow up with her PCP (Cardio, ID, IM etc) for clearance. Questions were invited and answered, and the patient wishes to proceed as outlined below. Currently, I am recommendin.C3-4 ANTERIOR CERVICAL DECOMPRESSION & FUSION 2.Follow up with PCP for surgical clearance 3.Review of surgical risks and benefits as well as an educational packet on the proposed surgical procedure. Risks: All surgical procedures come with inherent risks, including those related to positioning, anesthesia, intraoperative findings, and postoperative complications. It is important to understand that surgery does not come with any guarantee of a successful outcome as complications and adverse events are always possible. The patient was given a handout in office today discussing the surgical procedure and risks associated with the intervention, both of which were discussed with the patient. These risks include but are not limited to the following: * Experiencing same, different or even worse symptoms in back, neck, arms, or legs compared to before surgery. Requiring further surgery or other forms of treatment presently or at some time in the future at same or other levels of the intended spine surgery. On an extreme but fortunately relatively rare basis severe complication such as blindness, stroke, heart attack, temporary and/or permanent nerve injury, paralysis, coma, or may occur, sometimes without known explanation. Surgical complications may include but are not limited to risk of infection, fluid accumulation in the surgical dissection site, including a seroma or hematoma, that requires additional surgery, wound drainage, bleeding, new numbness or weakness, vision changes/loss, spinal fluid leakage, non-healing and/or infected incision, headaches, difficulty or inability to swallow, hoarseness, hemopneumothorax, pneumothorax, impotence, retrograde ejaculation, vaginal dryness; injury to nerves, spinal cord, blood vessels, lymphatics or other vital organs (i.e., bowel injury, injury to the great vessels); heterotopic bone formation; complications related to the hardware such as screws, rods, cages including misplaced hardware, device failure, instrumentation at the wrong spine level, hardware fracture/breakage, or hardware loosening; vertebral failure of the spinal column above or below the newly placed hardware; retained surgical instrumentations or devices and the need for further surgery. * Medical risks of the planned spine surgery include but are not limited to generalized Infections to the whole body or local areas outside of the surgical site (sepsis), heart attack, bleeding, anaphylaxis, meningitis, seizure, epilepsy, hearing loss, burn deleon, laceration of the head or other areas of the body, bruising, hypersensitivity of the skin, bladder over distension; allergic reaction; shoulder injury related to positioning; fat, blood and air clots to other areas of the body like heart, lungs, brain; failure of internal organs such as lungs, kidneys, liver and excessive bleeding. If blood transfusions are necessary, note that transfusions may cause intolerance reactions such as anaphylaxis or other complex reactions. Despite best efforts, the results of spine surgery might not heal in terms of bone, soft tissues such as skin, fascia, ligaments, and joints. Additionally, in order to achieve best possible results, spine surgery may be carried out beyond the initially planned levels and involve decompression, fusion including insertion of hardware at levels other than the original intended area of surgical interest change some portions of the procedure in order to ensure the best possible outcomes. With spine surgery and spinal fusion, there are different off label uses of instrumentation (devices, implants and hardware) as well as biological substances (bone morphogenic proteins, demineralized bone matrix) as well as usi ng extra bone from allograft sources (i.e. cadaver bone) or autograft (iliac crest bone, ribs, or the spine itself). The patient has been given information about these practices and their inherent risks and benefits. [facility] is an educational center that serves as a training facility for neurosurgical and orthopedic INSERT MOLDING OPERATOR and Nursing students. Physician assistants are medically trained surgical providers who function in the outpatient, inpatient, and operating room setting under the direct supervision of the attending surgeon. [facility] has multiple operating rooms with single and overlapping rooms running daily. They currently function under the required guidelines as produced by the [facility] Finance Committee with regards to the overlapping rooms and will continue to comply with changes to this policy as they occur. The requirements include and are complied with as follows: (1) the critical portions of the overlapping rooms will not occur at the same time, (2) the attending physician will be physically present during the critical portions of the procedure and immediately available during the entire case, and (3) a back-up attending is designated should the primary attending not be immediately available. The patient has had a chance to review all the listed information, has been given print outs detailing this information, and has had all his/her questions answered to their satisfaction. It was my pleasure to have seen and examined Mr. Patel. In our visit today we have had a chance to go over my understanding of our patient's current condition, the natural course history without intervention and various interventional options. Questions were invited and answered, and the patient wishes to proceed as outlined above. I have seen and examined the patient for 25 minutes and we have spent more than 50% of the time in repeat and detailed counseling about the patient's condition, its natural course history with out and as much as can be predicted with surgery and re-review of various surgical treatment options. In conclusion, Mr. Patel requested we proceed with the above suggested surgery and are willing to accept risks and limitations of the suggested surgery as nature of the disease process and our best attempts at treatment for the condition. MEDICAL NECESSITY: Mr. Patel demonstrates clear medical necessity for surgical intervention due to documented severe cervical myelopathy with progressive neurological deterioration. The patient exhibits significant functional decline with develo pment of gait instability requiring wheelchair use, upper extremity radiculopathy, and new onset of concerning neurological symptoms including headaches, blurred vision, and double vision. MRI imaging confirms severe central and bilateral foraminal stenosis at C3-4 with evidence of myelomalacia, indicating spinal cord signal changes. Conservative management has failed to provide meaningful symptom relief or halt neurological progression. The patient's condition represents a serious threat to neurological function with risk of permanent disability without surgical intervention. SURGICAL RATIONALE: The recommended C3-4 anterior cervical decompression and fusion represents the most appropriate surgical intervention for this patient's pathology. This approach will provide direct access to the area of severe stenosis and herniated disc material, allowing for comprehensive neural decompression while maintaining spinal stability. The presence of myelomalacia at C3-4 indicates ongoing spinal cord compression with tissue changes, necessitating urgent decompression to prevent further neurological deterioration. The anterior approach is preferred due to the predominantly anterior pathology and will allow for complete removal of the herniated disc material, decompression of the spinal cord and nerve roots, and catholic of foraminal height. Fusion is necessary to maintain decompression and prevent recurrent stenosis while providing immediate stability to the affected segment. FOLLOW UP: *POST-OP PLAN AT NEXT VISIT: * RECHECK PATIENT EDUCATION: Medications Reviewed: YES In our visit today Mr. Patel and I have had a chance to go over my understanding of the patient's current condition, the natural course history without intervention and various interventional options. Questions were invited and answered, and the patient wishes to proceed as outlined above. I will be sure to keep you updated after Mr. Patel returns here for further follow-up. Thank you again for your referral. Please do not hesitate to contact me if you have any further questions. Signed and authenticated by: Tino Bianchi [facility] Yanique Alexander [address] [address] . This message is confidential, intended only for the named recipient(s) and may contain information that is privileged or exempt from disclosure under applicable law. If you are not the intended recipient(s), you are notified that the dissemination, distribution or copying of this information is prohibited. If you received this message in error, please notify the sender then delete this message. Past Medical History Past Medical History: Atrial Fibrillation, Coronary Artery Disease (CAD), Cancer, Heart Failure, CVA/TIA, Diabetes Mellitus, GERD/Reflux, Hyperlipidemia, Hypertension, Myocardial Infarction (NH), Osteoarthritis (OA), Sleep Apnea/CPAP/BIPAP, Thyroid Disorder Additional Past Medical History / Comment(s): gout, skin ca, colon cancer with resection and chemo (2017)., uses c-pap machine., ulcer on side of right great toe- healed ., BPH., buldge to c-spine, Last Myocardial Infarction Date:: 2006 History of Any Multi-Drug Resistant Organisms: C-DIFF, MRSA Date of last positivie culture/infection: MDRO Source:: right great toe Past Surgical History: Appendectomy, Bowel Resection, Cholecystectomy, Heart Catheterization With Stent, Orthopedic Surgery Additional Past Surgical History / Comment(s): skin ca removed, lt shoulder surgery ,rt knee surgery, deviated septum surgery,rt great toe partial amputation Past Anesthesia/Blood Transfusion Reactions: No Reported Reaction Additional Past Anesthesia/Blood Transfusion Reaction / Comment(s): no hx blood transfusion Date of Last Stent Placement:: 2006 Smoking Status: Former smoker - Past Family History Father Family Medical History: Asthma, Hyperlipidemia Additional Family Medical History / Comment(s): aneurysm- at age 61. was a heavy smoker,prostate sx a week before he not sure what took him. Mother Family Medical History: Dementia Additional Family Medical History / Comment(s): at age 75 from alzheimers Medications and Allergies Home Medications Medication Instructions Recorded Confirmed Type Potassium Chloride [Klor-Con 20] 20 meq PO DAILY 01/15/14 08/07/24 History Pravastatin Sodium [Pravachol] 40 mg PO HS 01/15/14 08/07/24 History allopurinoL [Zyloprim] 100 mg PO HS 07/28/15 08/07/24 History Sertraline HCl [Zoloft] 200 mg PO QA 11/05/15 08/07/24 History Rivaroxaban [Xarelto] 20 mg PO HS 07/27/17 08/07/24 History Empagliflozin [Jardiance] 25 mg PO DAILY 06/10/21 08/07/24 History Pantoprazole [Protonix] 40 mg PO BID 06/10/21 08/07/24 History glipiZIDE [Glucotrol] 20 mg PO HS 08/14/22 08/07/24 History LORazepam [Ativan] 2 mg PO BID PRN 08/11/23 08/07/24 History Fenofibrate [Lofibra] 160 mg PO DAILY 30 Days #30 tab 11/27/23 08/07/24 Rx Temazepam [Restoril] 7.5 mg PO HS 02/11/24 08/07/24 History Ziprasidone [Geodon] 40 mg PO BID 03/14/24 08/07/24 History Dicyclomine [Bentyl] 20 mg PO TID PRN 05/30/24 08/07/24 History Insulin Glargine,Hum.rec.anlog 20 unit SQ HS 05/30/24 08/07/24 History [Insulin Glargine Solostar] [place] Carbonate ER [Lithobid] 450 mg PO HS 05/30/24 08/07/24 History Tamsulosin HCl [Flomax] 0.4 mg PO HS 07/19/24 08/07/24 History Acetaminophen Tab [Tylenol] 650 mg PO Q6HR PRN tab 07/22/24 08/07/24 Rx lisinopriL [Zestril] 10 mg PO QAM 08/07/24 08/07/24 History Allergies Allergy/AdvReac Type Severity Reaction Status Date / Time clopidogrel bisulfate Allergy Rash/Hives Verified 07/19/24 14:38 [From Plavix] Sulfa (Sulfonamide Allergy Rash/Hives Verified 07/19/24 14:38 Antibiotics) gabapentin AdvReac Aggression, Verified 07/19/24 14:38 anxiety, mood swings metformin AdvReac Diarrhea Verified 07/19/24 14:38 morphine AdvReac Hallucinati Verified 07/19/24 14:38 ons pregabalin [From Lyrica] AdvReac Aggression, Verified 07/19/24 14:38 anxiety, mood swings Physical Examination Osteopathic Statement: *. No significant issues noted on an osteopathic structural exam other than those noted in the History and Physical/Consult.
[2024-08-12] MEDS: LACTATED RINGERS 1,000 ML IV SCH (08:15)
[2024-08-12] MEDS: IV FLUID CONTINUATION 1,000 ML IV ONE ×2 (08:15→08:30)
[2024-08-12] MEDS: LIDOCAINE 1% (10MG/ML) FOR IV START INTRADERMA STA (08:15)
[2024-08-12 08:34] LABS: Glucose,Whole Blood 169 mg/dL (70-110)
[2024-08-12] MEDS: ONDANSETRON 4 MG/2 ML VIAL IVP PRN (08:36)
[2024-08-12] MEDS: ACETAMINOPHEN TAB 500 MG TAB PO PRN (08:36)
[2024-08-12] MEDS: DEXAMETHASONE SOD PHOSPHATE 4 MG/ML 1 ML VIAL IV ONE (08:37)
[2024-08-12] MEDS ORDERED: TRANEXAMIC 1,000 MG/100ML-NACL PREMIX BAG ONE (09:02)
[2024-08-12] MEDS ORDERED: fentaNYL (PF) 50 MCG/ML 2 ML AMP ONE (09:02)
[2024-08-12] MEDS ORDERED: PROPOFOL 10 MG/ML 20 ML VIAL IV ONE (09:02)
[2024-08-12] MEDS ORDERED: HYDROmorphone (PF) 1 MG/ML ONE (09:02)
[2024-08-12] MEDS ORDERED: SUCCINYLCHOLINE CHLORIDE 200 MG/10 ML VIAL IV ONE (09:02)
[2024-08-12] MEDS ORDERED: MIDAZOLAM 2 MG/2 ML VIAL ONE (09:02)
[2024-08-12] MEDS ORDERED: PHENYLEPHRINE-0.9% NACL SYG 1,000 MCG/10 ML SYRINGE ONE (09:02)
[2024-08-12] MEDS ORDERED: KETAMINE HCL IN 0.9 % NACL 50 MG/5 ML SYRINGE ONE (09:02)
[2024-08-12] MEDS ORDERED: LIDOCAINE 1% INJ 10MG/ML (20 ML MDV) ONE (09:02)
[2024-08-12] MEDS: THROMBIN (BOVINE) 5,000 UNIT VIAL TOPICAL ONE (09:07)
--- NOTE | 2024-08-12 10:35 | XR ---
EXAMINATION TYPE: XR cervical spine limited, OK guidance operating room Intraoperative/procedural flu oroscopic services were provided. CLINICAL INDICATION:Male, 74 years old with history of CERVICAL FUSION; , [facility] FINDINGS: Multiple fluoroscopic images demonstrating anterior cervical fusion with disc spacer involving C3-C4. No radiographic evidence for complication. Total fluoroscopy time is 13.3 seconds. DAP: 0.5999 Gycm2 Please see the operative/procedural note for further details. [facility], , 08/12/2024 10:33 AM
--- NOTE | 2024-08-12 10:40 | P.OP ---
Date of Procedure: 08/12/24 Preoperative Diagnosis: 1. 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 Cervical myelopathy 3. Headaches 4. Neck pain Postoperative Diagnosis: 1. 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 Cervical myelopathy 3. Headaches 4. Neck pain Procedure(s) Performed: 1. C3-4 ANTERIOR CERVICAL ARTHRODESIS 2. C3-4 ANTERIOR INSTRUMENTATION 3. C3-4 INSERTION OF BIOMECHANICAL DEVICE CAGE x1 USE OF IONM USE OF IO MICROSCOPE Implants: SAMPSON CASCADIA 9MM CAGE SAMPSON OZARK PLATE 22MM MAGANATOS 1.5 CC EASY PACK Anesthesia: GETA Surgeon: Dm Ayers Help Desk Operator #1: Sheldon Shabazz (WAS PRESENT AND ASSISTED WITH ALL ASPESCTS OF THE CASE FROM POSITION TO DRESSING PLACEMENT) Estimated Blood Loss (ml): 25 IV fluids (ml): 1,000 Urine output (ml): 0 Pathology: none sent Condition: stable Disposition: PACU Indications for Procedure: Mr. Patel is a 73-year-old male who presents to the office for a pre- operative appointment preceding his scheduled C3-4 ACDF. The patient reports progressive cervical myelopathy with severe neck pain (VAS 6/10) radiating bilaterally to upper extremities, accompanied by numbness, tingling, and significant neurological symptoms including headaches, blurred vision, and gait instability requiring ambulatory assistance. Imaging studies reveal C3-4 large HNP with severe central and bilateral foraminal stenosis, myelomalacia, and significant degenerative changes. Conservative management including PT, home exercise, and activity modification has provided minimal relief. After thorough discussion of surgical risks and benefits, patient has elected to proceed with C3-4 anterior cervical decompression and fusion. Pre-operative medical clearance has been ordered through PCP, with particular attention to management of comorbidities including Type II diabetes and A-fib. Patient understands all surgical risks and post-operative protocol. Surgery will be scheduled upon receipt of medical clearance. Description of Procedure: C3-4 ACDF The patient was seen and examined in the preoperative area. All preoperative protocols were followed. Informed consent was obtained, risks and benefits of the procedure were discussed at length. Risks including bleeding infection damage to the surrounding tissue and risk of reoperation were discussed with the patient. Risk of anesthesia up to and including was discussed with the patient. These are outlined in the risk review. They were willing to accept these risks and all the risks of surgery. The patient was given a weight-based dose of antibiotics in the form of 2 g Ancef. The patient was seen and evaluated by the anesthesia team who deemed them fit for surgery. The site was marked, the patient was willing to proceed with the procedure. The patient was transferred to the operative suite by the Department of anesthesia. They were then drifted off to sleep by the department anesthesia and GETA was performed. The patient tolerated this well. Pittman catheter was placed by nursing staff, a-traumatically. Once confirmation of lines and ventilation the patient was transferred to a Supine Michael table very carefully. All bony prominences including wrists, elbows, axilla, chest, hips, and thighs, and feet were padded very well. Special attention was paid to the genitalia, and these were padded accordingly. SCDs were placed on bilateral lower extremities and were connected. Arms were well padded and placed at their side thumbs up. Once in position, again we confirmed good ventilation capabilities and that lines were running appropriately. The patients Cervical spine was then exposed. 1010s were placed outlining the incision site. Standard alcohol was used to clean the incision site and allowed to dry. C-arm was used to bio-leann the patient and confirm level for incision which was marked with a skin marker. Operative briefing was performed with all teams and everyone in agreement to proceed. The patient was then prepped and draped in a normal sterile fashion. Timeout was then performed, and all parties agreed with the procedure to be performed. Transverse skin incision was then made on the right side of the patients neck 3 cm and dissection taken down to the platysma which was split transversely. Sub platysma flap was made, and interval identified between SCM and medial structures. Omohyoid was visualized and protected. Blunt dissection taken down to the anterior cervical facia which was identified. Blunt prob was then placed and lateral image taken which confirmed levels for operation. These levels were then marked with a bovi. Subperiosteal dissection of the longissimus muscles were then done over these levels identifying uncovertebral joints bilaterally. Retractor was then placed deep to these muscles and held in place with a bed arm. [place] pins were placed into C3 and C4 and gentle distraction taken out over the levels. Ace rongeur used to remove disc material. Operating microscope br ought in for visualization. Complete discectomy performed at this level with curette, rongure and pituitary. High speed daimen used to remove osteophytes anteriorly and posteriorly until PLL was identified. 6-0 up curette then used to identify the canal and resect the PLL. 2-0 and 3-0 [place] used then to remove PLL and disc herniation and performed b/l foraminotomies. Once good decompression was accomplished, meticulous hemostasis was performed. Sizers were then placed under lateral fluoroscopy until the desired height and lordosis. Cage was then selected, packed with autograft and allograft and placed under lateral imaging. Once in good position it was tested and stable. Motors run before and after cage placement were stable. The wound was irrigated, and autograft placed lateral to the cage anteriorly for fusion. [place] pin was then removed from C3 and C4 and bone wax placed in their void. A separate, non-integrated plate was then selected and sized under lateral image. The plate was then placed with screws. Fixed screws drilled into C4 b/l and screws placed. Then screw placed into C3. Good purchase of all screws obtained and the locking mechanism was set. Final AP and lateral images taken confirmed good placement of hardware and good reduction and caodaism of height. The wound was then irrigated copiously with NSS. Surgicel placed deep in the wound. Layered closure then performed with 3-0 Vicryl in the platysma and subQ tissue. 4-0 Strata fix in the subcuticular tissue. The wound was then cleaned, and dried and skin glue placed. Once glue dried an Opifoam was placed. The patient was then transferred back to their hospital bed a-traumatically. The drain continued to hold suction. They were placed in a soft collar. They were then awakened by the department of anesthesia having tolerated the procedure well without complications.
[2024-08-12 11:03] VITALS: TEMP 97.2
[2024-08-12 11:10] LABS: Glucose,Whole Blood 206 mg/dL (70-110)
[2024-08-12 12:47] LABS: Glucose,Whole Blood 212 mg/dL (70-110)
[2024-08-12 13:02] VITALS: RESP 16
[2024-08-12] MEDS: INSULIN LISPRO (HumaLOG) 100 UNIT/ML 10 mL VL SQ ONE (13:27)
[2024-08-12 15:18] VITALS: BP 138/80; PULSE 73
== END 2024-08-12 16:10 | disposition home or self-care (01) ==
LOC: OR 07:20
PROVIDERS: ATTEND Orthopaedic Surgery
DX: M50.21 Other cervical disc displacement, high cervical region (principal); M47.12 Other spondylosis with myelopathy, cervical region; M48.02 Spinal stenosis, cervical region; E11.9 Type 2 diabetes mellitus without complications; I48.91 Unspecified atrial fibrillation; Z79.84 Long term (current) use of oral hypoglycemic drugs
CPT/HCPCS: 86900; 86901; 86850; 72040; 22551; 22853; 61783; C1713; J2250; J0330; J1100; J0690; J2405; J2003; J3010; J1171; J2704; J2371

== ENCOUNTER 2024-10-03 17:20 | Emergency (ER) | payer OTHER, MEDICARE ==
[2024-10-03 17:30] VITALS: RESP 18; TEMP 97.8
--- NOTE | 2024-10-03 17:48 | ED ---
Abdominal Pain HPI - General Chief Complaint: Abdominal Pain Stated Complaint: L knee Pain Time Seen by Provider: 10/03/24 17:34 Source: patient, EMS Mode of arrival: EMS Limitations: no limitations - History of Present Illness Initial Comments: This is a 74-year-old male with history including: CVA, CVA, AMI, and A-fib presenting for abdominal pain x 6-8 months. Patient endorses diffuse intermittent cramping/squeezing (10/10). Endorses sensation of bloating that worsens after eating. States symptoms are better in morning and worsened throughout the day. Also endorses postprandial nausea, chills and diarrhea without hematochezia or melena. Patient also mentions chronic left knee pain for the past several years noting the outer aspect of his left knee has been hurting more than usual for the past 2 weeks. Denies fever, chest pain, dyspnea , vomiting, urinary symptoms. MD Complaint: abdominal pain Onset/Timin -: month(s) Location: diffuse Severity scale (1-10): 10 Quality: cramping Consistency: intermittent Worsens With: eating Associated Symptoms: chills - Related Data Home Medications Medication Instructions Recorded Confirmed Potassium Chloride [Klor-Con 20] 20 meq PO DAILY 01/15/14 08/07/24 Pravastatin Sodium [Pravachol] 40 mg PO HS 01/15/14 08/07/24 allopurinoL [Zyloprim] 100 mg PO HS 07/28/15 08/07/24 Sertraline HCl [Zoloft] 200 mg PO QAM 11/05/15 08/07/24 Rivaroxaban [Xarelto] 20 mg PO HS 07/27/17 08/07/24 Empagliflozin [Jardiance] 25 mg PO DAILY 06/10/21 08/07/24 Pantoprazole [Protonix] 40 mg PO BID 06/10/21 08/07/24 glipiZIDE [Glucotrol] 20 mg PO HS 08/14/22 08/07/24 LORazepam [Ativan] 2 mg PO BID PRN 08/11/23 08/07/24 Temazepam [Restoril] 7.5 mg PO HS 02/11/24 08/07/24 Ziprasidone [Geodon] 40 mg PO BID 03/14/24 08/07/24 Dicyclomine [Bentyl] 20 mg PO TID PRN 05/30/24 08/07/24 Insulin Glargine,Hum.rec.anlog 20 unit SQ HS 05/30/24 08/07/24 [Insulin Glargine Solostar] [place] Carbonate ER [Lithobid] 450 mg PO HS 05/30/24 08/07/24 Tamsulosin HCl [Flomax] 0.4 mg PO HS 07/19/24 08/07/24 lisinopriL [Zestril] 10 mg PO QAM 08/07/24 08/07/24 Previous Rx's Medication Instructions Recorded Fenofibrate [Lofibra] 160 mg PO DAILY 30 Days #30 tab 11/27/23 Acetaminophen Tab [Tylenol] 650 mg PO Q6HR PRN tab 07/22/24 Cyclobenzaprine [Flexeril] 5 mg PO BID PRN #21 tablet 08/12/24 HYDROcodone/APAP 5-325MG [[place] 1 tab PO Q6HR PRN #28 tab 08/12/24 5-325] Sennosides/Docusate Sodium 1 each PO DAILY PRN #21 tablet 08/12/24 [Senna-S 8.6-50 mg Tablet] cefaDROXiL [Duricef] 500 mg PO Q12HR 5 Days #10 cap 08/12/24 Docusate [Colace] 100 mg PO HS #20 capsule 10/03/24 Allergies Allergy/AdvReac Type Severity Reaction Status Date / Time clopidogrel bisulfate Allergy Rash/Hives Verified 07/19/24 14:38 [From Plavix] Sulfa (Sulfonamide Allergy Rash/Hives Verified 07/19/24 14:38 Antibiotics) gabapentin AdvReac Aggression, Verified 07/19/24 14:38 anxiety, mood swings metformin AdvReac Diarrhea Verified 07/19/24 14:38 morphine AdvReac Hallucinati Verified 07/19/24 14:38 ons pregabalin [From Lyrica] AdvReac Aggression, Verified 07/19/24 14:38 anxiety, mood swings Review of Systems ROS Statement: Those systems with pertinent positive or pertinent negative responses have been documented in the HPI. ROS Other: All systems not noted in ROS Statement are negative. Past Medical History Past Medical History: Atrial Fibrillation, Coronary Artery Disease (CAD), Cancer, Heart Failure, CVA/TIA, Diabetes Mellitus, GERD/Reflux, Hyperlipidemia, Hypertension, Myocardial Infarction (NH), Sleep Apnea/CPAP/BIPAP, Thyroid Disorder Additional Past Medical History / Comment(s): gout, skin ca, colon cancer with resection and chemo (2017)., c-pap machine., ulcer on side of right great toe- receives wound tx ., BPH., gall bladder pain.buldge to c-spine, infection toe- needing amputation Last Myocardial Infarction Date:: 2006 History of Any Multi-Drug Resistant Organisms: C-DIFF, MRSA Date of last positivie culture/infection: MDRO Source:: right great toe Past Surgical History: Appendectomy, Bowel Resection, Heart Catheterization With Stent, Orthopedic Surgery Additional Past Surgical History / Comment(s): skin ca removed, lt shoulder surgery ,rt knee surgery, deviated septum surgery Past Anesthesia/Blood Transfusion Reactions: No Reported Reaction Date of Last Stent Placement:: 2006 Past Psychological History: Anxiety, Bipolar, Depression Smoking Status: Current some day smoker, Former smoker - Past Family History Father Family Medical History: Asthma, Hyperlipidemia Additional Family Medical History / Comment(s): aneurysm- at age 61. was a heavy smoker,prostate sx a week before he not sure what took him. Mother Family Medical History: Dementia Additional Family Medical History / Comment(s): at age 75 from alzheimers General Exam Limitations: no limitations General appearance: alert, in no apparent distress Head exam: Present: atraumatic, normocephalic, normal inspection Eye exam: Present: normal appearance, PERRL, EOMI. Absent: scleral icterus, conjunctival injection, periorbital swelling ENT exam: Present: normal exam, mucous membranes moist Neck exam: Present: normal inspection. Absent: tenderness, meningismus, lymphadenopathy Respiratory exam: Present: normal lung sounds bilaterally. Absent: respiratory distress, wheezes, rales, rhonchi, stridor Cardiovascular Exam: Present: regular rate, normal rhythm, normal heart sounds. Absent: systolic murmur, diastolic murmur, rubs, gallop, clicks GI/Abdominal exam: Present: soft, distended, tenderness (Diffuse pressure with palpation with LLQ tenderness without guarding.), rebound, normal bowel sounds. Absent: guarding, rigid, mass, pulsatile mass Extremities exam: Present: normal inspection, full ROM, tenderness (Positive left lateral knee tenderness without open wound, crepitus, deformity. Negative Indigo's, varus/valgus, Roxanne's. Posterior tibialis pulse +2), normal capillary refill. Absent: pedal edema, joint swelling, calf tenderness Back exam: Present: normal inspection Neurological exam: Present: alert, oriented X3, CN II-XII intact Psychiatric exam: Present: normal affect, normal mood Skin exam: Present: warm, dry, intact, normal color. Absent: rash Course Vital Signs 10/03/24 10/03/24 17:24 20:57 Temperature 97.8 F Pulse Rate 78 75 Respiratory 18 18 Rate Blood Pressure 132/76 151/83 O2 Sat by Pulse 96 97 Oximetry Medical Decision Making - Medical Decision Making Was pt. sent in by a medical professional or institution (, PA, PROCESSING ANALYST, urgent care, hospital, or [facility]...) When possible be specific @ -No Did you speak to anyone other than the patient for history (EMS, parent, family, police, friend...)? What history was obtained from this source @ -No Did you review nursing and triage notes (agree or disagree)? Why? @ -I reviewed and agree with nursing and triage notes Were old charts reviewed (outside hosp., previous admission, EMS record, old EKG, old radiological studies, urgent care reports/EKG's, [facility] records)? Report findings @ -No old charts were reviewed Differential Diagnosis (chest pain, altered mental status, abdominal pain women, abdominal pain men, vaginal bleeding, weakness, fever, dyspnea, syncope, headache, dizziness, GI bleed, back pain, seizure, CVA, palpatations, mental health, musculoskeletal)? @ -Differential Abdominal Pain Men: Appendicitis, cholecystitis, diverticulosis, ischemic bowel, pancreatitis, hepatitis, UTI, gastroenteritis, AAA, incarcerated hernia, bowel obstruction, constipation, inflammatory bowel, hepatitis, peptic ulcer disease, splenic infarction, perforated viscus, testicular torsion, this is not meant to be an all-inclusive list Differential Musculoskeletal Muscular strain, contusion, ligament sprain, fracture, arthritis, septic arthritis, bursitis, cellulitis, muscle spasm, nerve compression, DVT, arterial occlusion, herpes zoster, electrolyte abnormality, tumor.... This is not meant to be in all inclusive list EKG interpreted by me (3pts min.). @ -Not done X-rays interpreted by me (1pt min.). @ -Left knee x-ray shows no acute fracture or dislocation with moderate tricompartmental osteoarthritic changes. CT interpreted by me (1pt min.). @ -AP CT shows no acute abnormality in abdomen/pelvis with moderate to large volume of diffuse colonic stool indicating constipation. Colonic diverticulosis without diverticulitis, cirrhotic morphology and mild splenomegaly. U/S interpreted by me (1pt. min.). @ -None done What testing was considered but not performed or refused? (CT, X-rays, U/S, labs)? Why? @ -None What meds were considered but not given or refused? Why? @ -None Did you discuss the management of the patient with other professionals (professionals i.e. , PA, PROCESSING ANALYST, lab, RT, psych nurse, social media executive, immigration manager, teacher, chief commercial officer, pillowcase turner)? Give summary @ -No Was smoking cessation discussed for >3mins.? @ -No Was critical care preformed (if so, how long)? @ -No Were there social determinants of health that impacted care today? How? (Homelessness, low income, unemployed, alcoholism, drug addiction, transportation, low edu. Level, literacy, decrease access to med. care, penitentiary, rehab)? @ -No Was there de-escalation of care discussed even if they declined (Discuss DNR or withdrawal of care, Hospice)? DNR status @ -No What co-morbidities impacted this encounter? (DM, HTN, Smoking, COPD, CAD, Cancer, CVA, ARF, Chemo, Hep., AIDS, mental health diagnosis, sleep apnea, morbid obesity)? @ -None Was patient admitted / discharged? Hospital course, mention meds given and route, prescriptions, significant lab abnormalities, going to OR and other pertinent info. @ -Lab work shows iron deficient anemia with MCV 79.6, anion gap 14, hyperglycemia 170 and hypercalcemia 10.8. LFT, kidney function and amylase/lipase unremarkable. Preliminary stool culture unremarkable. AP CT shows no acute abnormality in abdomen/pelvis with moderate to large volume of diffuse colonic stool indicating constipation. Colonic diverticulosis without diverticulitis, cirrhotic morphology and mild splenomegaly. Left knee x-ray shows no acute fracture or dislocation with moderate tricompartmental osteoarthritic changes. Patient initially provided IV normal saline, Pepcid and Protonix as well as p.o. Tylenol with some relief noted by patient. Colace sent to patient's pharmacy. Advised increase prune juice and soluble/insoluble fiber intake. MiraLAX once nightly as needed. Follow-up with PCP for any ongoing or worsening symptoms. Discussed patient with Dr. Kinsey. Undiagnosed new problem with uncertain prognosis? @ -No Drug Therapy requiring intensive monitoring for toxicity (Heparin, Nitro, Insulin, Cardizem)? @ -No Were any procedures done? @ -No Diagnosis/symptom? @ -Constipation, left knee osteoarthritis Acute, or Chronic, or Acute on Chronic? @ -Acute on chronic Uncomplicated (without systemic symptoms) or Complicated (systemic symptoms)? @ -Complicated Side effects of treatment? @ -No Exacerbation, Progression, or Severe Exacerbation? @ -No Poses a threat to life or bodily function? How? (Chest pain, [place], NH, pneumonia, PE, COPD, DKA, ARF, appy, cholecystitis, CVA, Diverticulitis, Homicidal, Suicidal, threat to staff... and all critical care pts) @ -No - Lab Data Result diagrams: 10/03/24 17:59 10/03/24 17:59 Lab Results 10/03/24 10/03/24 Range/Units 17:59 17:59 WBC 7.84 (4.50-10.00) 10*3/uL RBC 5.60 (4.40-5.60) 10*6/uL Hgb 14.1 (13.0-17.0) g/dL Hct 44.6 (39.6-50.0) % MCV 79.6 L (80.0-97.0) fL MCH 25.2 L (27.0-32.0) pg MCHC 31.6 L (32.0-37.0) g/dL Plt Count 183 (140-440) 10*3/uL MPV 10.9 (9.5-12.2) fL Immature Gran % (Auto) 0.4 % Neutrophils % 72.4 % Lymphocytes % 18.9 % Monocytes % 5.9 % Eosinophils % 1.9 % Basophils % 0.5 % Immature Gran # 0.03 (0.00-0.04) 10*3/uL Neutrophils # 5.68 (1.80-7.70) 10*3/uL Lymphocytes # 1.48 (0.90-5.00) 10*3/uL Monocytes # 0.46 (0.20-1.00) 10*3/uL Eosinophils # 0.15 (0.04-0.35) 10*3/uL Basophils # 0.04 (0.00-0.10) 10*3/uL Sodium 136 L (137-145) mmol/L Potassium 4.5 (3.5-5.1) mmol/L Chloride 104 (98-107) mmol/L Carbon Dioxide 18 L (22-30) mmol/L Anion Gap 14 mmol/L BUN 15 (9-20) mg/dL Creatinine 0.86 (0.66-1.25) mg/dL Est GFR (CKD-EPI)AfAm >90 (>60 ml/min/1.73 sqM) Est GFR (CKD-EPI)NonAf 87 (>60 ml/min/1.73 sqM) Glucose 170 H (74-99) mg/dL Calcium 10.8 H (8.4-10.2) mg/dL Total Bilirubin 0.7 (0.2-1.3) mg/dL AST 27 (17-59) U/L ALT 23 (4-49) U/L Alkaline Phosphatase 68 (38-126) U/L Total Protein 7.1 (6.3-8.2) g/dL Albumin 4.3 (3.5-5.0) g/dL Amylase 97 (30-110) U/L Lipase 117 (23-300) U/L Disposition Clinical Impression: Constipation, Osteoarthritis of left knee Disposition: HOME SELF-CARE Condition: Fair Instructions (If sedation given, give patient instructions): Constipation (ED) Additional Instructions: Increase water, prune juice and soluble/insoluble fiber intake. 1 packet of MiraLAX in 8 ounces of water once nightly as needed. Follow-up with PCP if symptoms do not improve or continue to worsen. Prescriptions: Docusate [Colace] 100 mg PO HS #20 capsule Is patient prescribed a controlled substance at d/c from ED?: No Referrals: Juan Shields DO [Primary Care Provider] - 1-2 days Bhavani Singh MD [STAFF PHYSICIAN] - 1-2 days Time of Disposition: 19:49
[2024-10-03] MEDS: ACETAMINOPHEN TAB 500 MG TAB PO STA (18:01)
[2024-10-03] MEDS: SODIUM CHLORIDE 0.9% 1,000 ML IV STA (18:01)
[2024-10-03] MEDS: FAMOTIDINE 20 MG/2 ML VIAL IV STA (18:02)
[2024-10-03] MEDS: PANTOPRAZOLE 40 MG/10 ML VIAL IVP STA (18:03)
[2024-10-03 18:25] LABS: Basophils # (A) 0.04 10*3/uL (0.00-0.10); Basophils % (A) 0.5 %; Eosinophils # (A) 0.15 10*3/uL (0.04-0.35); Eosinophils % (A) 1.9 %; HCT 44.6 % (39.6-50.0); HGB 14.1 g/dL (13.0-17.0); Lymphocytes # (A) 1.48 10*3/uL (0.90-5.00); Lymphocytes % (A) 18.9 %; MCH 25.2 pg (27.0-32.0); MCHC 31.6 g/dL (32.0-37.0); MCV 79.6 fL (80.0-97.0); Mean Platelet Volume 10.9 fL (9.5-12.2); Monocytes # (A) 0.46 10*3/uL (0.20-1.00); Monocytes % (A) 5.9 %; Neutrophils # (A) 5.68 10*3/uL (1.80-7.70); Neutrophils % (A) 72.4 %; Platelet Count 183 10*3/uL (140-440); RDW 19.3 % (11.5-14.5); WBC 7.84 10*3/uL (4.50-10.00)
[2024-10-03 18:46] LABS: ALT 23 U/L (4-49); AST 27 U/L (17-59); African American GFR (CKD) >90 (>60 ml/min/1.73 sqM); Albumin 4.3 g/dL (3.5-5.0); Alkaline Phosphatase 68 U/L (38-126); Amylase 97 U/L (30-110); Anion Gap 14 mmol/L; Blood Urea Nitrogen 15 mg/dL (9-20); Calcium 10.8 mg/dL (8.4-10.2); Carbon Dioxide 18 mmol/L (22-30); Chloride 104 mmol/L (98-107); Glucose 170 mg/dL (74-99); Lipase 117 U/L (23-300); Non-African American GFR(CKD) 87 (>60 ml/min/1.73 sqM); Potassium 4.5 mmol/L (3.5-5.1); Sodium 136 mmol/L (137-145); Total Bilirubin 0.7 mg/dL (0.2-1.3); Total Protein 7.1 g/dL (6.3-8.2)
--- NOTE | 2024-10-03 19:46 | CT ---
EXAMINATION TYPE: CT abdomen pelvis w con DATE OF EXAM: 10/03/2024 7:38 PM COMPARISON: CT abdomen/pelvis 07/19/2024. CLINICAL INDICATION: Male, 74 years old with history of abdominal pain; abdominal pain, diarrhea x 3 days TECHNIQUE: Axial CT abdomen pelvis w con;Sagittal and coronal reformats were created on a separate w orkstation. Contrast used:100 ml mL of Isovue 300 with IV Contrast, (none if empty) Oral contrast used: without Oral Contrast (none if empty) CT DLP: 2416.6 mGycm, Automated exposure control for dose reduction was used. FINDINGS: LOWER CHEST: Unremarkable ABDOMEN LIVER: Cirrhotic liver morphology. GALLBLADDER AND BILE DUCTS: The gallbladder is surgically absent. PANCREAS: Unremarkable. SPLEEN: Splenomegaly measuring 14.6 cm in AP dimension. ADRENAL GLANDS: Unremarkable. KIDNEYS AND URETERS: No evidence of hydronephrosis or renal calculus. The ureters are unremarkable. Bilateral simple renal cysts. PELVIS BLADDER: No evidence for wall thickening or mass given limitations of exam. REPRODUCTIVE: Prostate is enlarged measuring 6.3 cm in transverse dimension. ABDOMEN & PELVIS STOMACH AND BOWEL: Stomach and duodenum are unremarkable. No evidence of bowel obstruction. Colonic d iverticulosis without acute diverticulitis. PERITONEUM/RETROPERITONEUM: No evidence of pneumoperitoneum or free fluid. VASCULATURE: No evidence of aortic aneurysm. MUSCULOSKELETAL: No acute osseous abnormalities LYMPH NODES: No gross evidence for lymphadenopathy. SOFT TISSUE/ABDOMINAL WALL: Unremarkable IMPRESSION: 1. No acute abnormality in the abdomen/pelvis. 2. Moderate to large volume diffuse colonic stool burden suggesting constipation. 3. Colonic diverticulosis without acute diverticulitis. 4. Cirrhotic morphology and mild splenomegaly. [facility], , 10/03/2024 7:44 PM
--- NOTE | 2024-10-03 20:52 | XR ---
EXAMINATION TYPE: XR knee limited LT DATE OF EXAM: 10/03/2024 8:44 PM COMPARISON: None. CLINICAL INDICATION: Male, 74 years old with history of Worsening chronic left lateral knee pain; PHH , pain TECHNIQUE: XR knee limited LT views submitted.. FINDINGS: No acute fracture or dislocation. No unexpected radiopaque foreign body. Small suprapatella r joint effusion. Moderate tricompartmental degenerative osteoarthritis. IMPRESSION: 1. No acute osseous pathology. 2. Moderate tricompartmental osteoarthritic changes. [facility], , 10/03/2024 8:50 PM
[2024-10-03 20:57] VITALS: BP 151/83; PULSE 75
== END 2024-10-03 21:18 | disposition home or self-care (01) ==
LOC: EC 17:20
DX: K59.00 Constipation, unspecified (principal); M17.12 Unilateral primary osteoarthritis, left knee; F17.200 Nicotine dependence, unspecified, uncomplicated; Z88.5 Allergy status to narcotic agent; Z88.8 Allergy status to other drugs, medicaments and biological substances
CPT/HCPCS: 36415; 80053; 82150; 83690; 85025; 87045; 87046; 73560; 74177; 99285; 96374; 96375; 96361; Q9967; J2470; J1308

== ENCOUNTER 2024-10-22 09:18 | Emergency (ER) | payer OTHER, MEDICARE ==
--- NOTE | 2024-10-22 09:51 | ED ---
Abdominal Pain HPI - General Chief Complaint: Abdominal Pain Stated Complaint: Abd Pain Time Seen by Provider: 10/22/24 09:26 Source: patient, RN notes reviewed, old records reviewed Mode of arrival: wheelchair Limitations: no limitations - History of Present Illness Initial Comments: This is a 74-year-old male to the ER for evaluation abdominal pain today. Patient presents with abdominal pain with nausea no fevers no current vomiting. No travel history or sick contacts patient patient did have a bowel movement yesterday pretty normal may be feels like he is not having adequate bowel movements. No other complaints aside from abdominal pain here in the ER MD Complaint: abdominal pain -: days(s) Location: diffuse, epigastric, suprapubic Radiation: epigastric, suprapubic Migration to: epigastric, suprapubic Severity: moderate Severity scale (1-10): 7 Quality: fullness, sharp Consistency: intermittent Improves With: nothing Worsens With: nothing Associated Symptoms: nausea, vomiting Treatments Prior to Arrival: other (0) - Related Data Home Medications Medication Instructions Recorded Confirmed Potassium Chloride [Klor-Con 20] 20 meq PO DAILY 01/15/14 10/22/24 Pravastatin Sodium [Pravachol] 40 mg PO HS 01/15/14 10/22/24 allopurinoL [Zyloprim] 100 mg PO HS 07/28/15 10/22/24 Sertraline HCl [Zoloft] 200 mg PO DAILY 11/05/15 10/22/24 Rivaroxaban [Xarelto] 20 mg PO HS 07/27/17 10/22/24 Empagliflozin [Jardiance] 25 mg PO DAILY 06/10/21 10/22/24 Pantoprazole [Protonix] 40 mg PO BID 06/10/21 10/22/24 glipiZIDE [Glucotrol] 20 mg PO HS 08/14/22 10/22/24 LORazepam [Ativan] 2 mg PO BID PRN 08/11/23 10/22/24 Temazepam [Restoril] 7.5 mg PO HS 02/11/24 10/22/24 Ziprasidone [Geodon] 40 mg PO BID 03/14/24 10/22/24 Insulin Glargine,Hum.rec.anlog 20 unit SQ HS 05/30/24 10/22/24 [Insulin Glargine Solostar] [place] Carbonate ER [Lithobid] 450 mg PO HS 05/30/24 10/22/24 lisinopriL [Zestril] 10 mg PO DAILY 08/07/24 10/22/24 Aspirin EC [Ecotrin Low Dose] 81 mg PO DAILY 10/22/24 10/22/24 Cequa 0.09% Eye Drops 1 drop BOTH EYES BID 10/22/24 10/22/24 Previous Rx's Medication Instructions Recorded Fenofibrate [Lofibra] 160 mg PO DAILY 30 Days #30 tab 11/27/23 Acetaminophen Tab [Tylenol] 650 mg PO Q6HR PRN tab 07/22/24 Allergies Allergy/AdvReac Type Severity Reaction Status Date / Time clopidogrel bisulfate Allergy Rash/Hives Verified 10/22/24 12:16 [From Plavix] Sulfa (Sulfonamide Allergy Rash/Hives Verified 10/22/24 12:16 Antibiotics) gabapentin AdvReac Aggression, Verified 10/22/24 12:16 anxiety, mood swings metformin AdvReac Diarrhea Verified 10/22/24 12:16 morphine AdvReac Hallucinati Verified 10/22/24 12:16 ons pregabalin [From Lyrica] AdvReac Aggression, Verified 10/22/24 12:16 anxiety, mood swings Review of Systems ROS Statement: Those systems with pertinent positive or pertinent negative responses have been documented in the HPI. ROS Other: All systems not noted in ROS Statement are negative. Past Medical History Past Medical History: Atrial Fibrillation, Coronary Artery Disease (CAD), Cancer, Heart Failure, CVA/TIA, Diabetes Mellitus, GERD/Reflux, Hyperlipidemia, Hypertension, Myocardial Infarction (LA), Sleep Apnea/CPAP/BIPAP, Thyroid Disorder Additional Past Medical History / Comment(s): gout, skin ca, colon cancer with resection and chemo (2017)., c-pap machine., ulcer on side of right great toe- receives wound tx ., BPH., gall bladder pain.buldge to c-spine, infection toe- needing amputation Last Myocardial Infarction Date:: 2006 History of Any Multi-Drug Resistant Organisms: C-DIFF, MRSA Date of last positivie culture/infection: MDRO Source:: right great toe Past Surgical History: Appendectomy, Bowel Resection, Heart Catheterization With Stent, Orthopedic Surgery Additional Past Surgical History / Comment(s): skin ca removed, lt shoulder surgery ,rt knee surgery, deviated septum surgery Past Anesthesia/Blood Transfusion Reactions: No Reported Reaction Date of Last Stent Placement:: 2006 Past Psychological History: Anxiety, Bipolar, Depression Smoking Status: Current some day smoker, Former smoker - Past Family History Father Family Medical History: Asthma, Hyperlipidemia Additional Family Medical History / Comment(s): aneurysm- at age 61. was a heavy smoker,prostate sx a week before he not sure what took him. Mother Family Medical History: Dementia Additional Family Medical History / Comment(s): at age 75 from alzheimers General Exam Limitations: no limitations General appearance: alert, in no apparent distress Head exam: Present: atraumatic, normocephalic, normal inspection Eye exam: Present: normal appearance, PERRL, EOMI. Absent: scleral icterus, conjunctival injection, periorbital swelling ENT exam: Present: normal exam, mucous membranes moist Neck exam: Present: normal inspection. Absent: tenderness, meningismus, lymphadenopathy Respiratory exam: Present: normal lung sounds bilaterally. Absent: respiratory distress, wheezes, rales, rhonchi, stridor Cardiovascular Exam: Present: regular rate, normal rhythm, normal heart sounds. Absent: systolic murmur, diastolic murmur, rubs, gallop, clicks GI/Abdominal exam: Present: soft, normal bowel sounds. Absent: distended, tenderness, guarding, rebound, rigid Extremities exam: Present: normal inspection, full ROM, normal capillary refill. Absent: tenderness, pedal edema, joint swelling, calf tenderness Back exam: Present: normal inspection Neurological exam: Present: alert, oriented X3, CN II-XII intact Psychiatric exam: Present: normal affect, normal mood Skin exam: Present: warm, dry, intact, normal color. Absent: rash Course Vital Signs 10/22/24 10/22/24 10/22/24 09:20 10:06 11:45 Temperature 97.7 F Pulse Rate 72 80 64 Respiratory 16 16 18 Rate Blood Pressure 162/76 135/75 142/87 O2 Sat by Pulse 97 95 92 L Oximetry 10/22/24 12:34 Temperature 98.1 F Pulse Rate 75 Respiratory 16 Rate Blood Pressure 111/57 O2 Sat by Pulse 94 L Oximetry - Reevaluation(s) Reevaluation #1: Medical records reviewed Reevaluation #2: Patient symptoms improved Reevaluation #3: Patient informed of results questions answered Reevaluation #4: Was pt. sent in by a medical professional or institution ([facility] Rojas, STRUCTURER, urgent care, hospital, or skilled nursing...) When possible be specific @ -no Did you speak to anyone other than the patient for history (EMS, parent, family, police, friend...)? What history was obtained from this source @ -no Did you review nursing and triage notes (agree or disagree)? Why? @ -agree Are old charts reviewed (outside hosp., previous admission, EMS record, old EKG, old radiological studies, urgent care reports/EKG's, skilled nursing records)? Report findings @ -yes Differential Diagnosis (chest pain, altered mental status, abdominal pain women, abdominal pain men, vaginal bleeding, weakness, fever, dyspnea, syncope, headache, dizziness, GI bleed, back pain, seizure, CVA, palpatations, mental health, musculoskeletal)? @ -prior EKG interpreted by me (3pts min.). @ -no X-rays interpreted by me (1pt min.). @ -yes negative for acute disease CT interpreted by me (1pt min.). @ -no U/S interpreted by me (1pt. min.). @ -no What testing was considered but not performed or refused? (CT, X-rays, U/S, labs)? Why? @ -none What meds were considered but not given or refused? Why? @ -none Did you discuss the management of the patient with other professionals (professionals i.e. [facility] Rojas, STRUCTURER, lab, RT, psych nurse, social media coordinator, field inspector, teacher, safety patrol officer, top case assembler)? Give summary @ -no Was smoking cessation discussed for >3mins.? @ -no Was critical care preformed (if so, how long)? @ -no Were there social determinants of health that impacted care today? How? (Homelessness, low income, unemployed, alcoholism, drug addiction, transportation, low edu. Level, literacy, decrease access to med. care, long term, rehab)? @ -none Was there de-escalation of care discussed even if they declined (Discuss DNR or withdrawal of care, Hospice)? DNR status @ -no What co-morbidities impacted this encounter? (DM, HTN, Smoking, COPD, CAD, Cancer, CVA, ARF, Chemo, Hep., AIDS, mental health diagnosis, sleep apnea, morbid obesity)? @ -none Was patient admitted / discharged? Hospital course, mention meds given and route, prescriptions, significant lab abnormalities, going to OR and other pertinent info. @ - 74 male with significant abdominal pain. No acute findings on lab testing or CT scan here in the ER. Patient is having bowel movements, pain is controlled and can be discharged home Discharge Undiagnosed new problem with uncertain prognosis? @ -no Drug Therapy requiring intensive monitoring for toxicity (Heparin, Nitro, Insulin, Cardizem)? @ -no Were any procedures done? @ -no Diagnosis/symptom? @ -Abdominal pain Acute, or Chronic, or Acute on Chronic? @ -Acute Uncomplicated (without systemic symptoms) or Complicated (systemic symptoms)? @ -Complicated Side effects of treatment? @ -no Exacerbation, Progression, or Severe Exacerbation? @ -exacerbation Poses a threat to life or bodily function? How? (Chest pain, USA, LA, pneumonia, PE, COPD, DKA, ARF, appy, cholecystitis, CVA, Diverticulitis, Homicidal, S uicidal, threat to staff... and all critical care pts) @ -yes extremes of age Reevaluation #5: Differential Abdominal Pain Men: Appendicitis, cholecystitis, diverticulosis, ischemic bowel, pancreatitis, hepatitis, UTI, gastroenteritis, AAA, incarcerated hernia, bowel obstruction, constipation, inflammatory bowel, hepatitis, peptic ulcer disease, splenic infarction, perforated viscus, testicular torsion, this is not meant to be an all-inclusive list Medical Decision Making - Medical Decision Making 74 male with significant abdominal pain. No acute findings on lab testing or CT scan here in the ER. Patient is having bowel movements, pain is controlled and can be discharged home - Lab Data Result diagrams: 10/22/24 09:58 10/22/24 09:58 Lab Results 10/22/24 10/22/24 10/22/24 Range/Units 09:58 09:58 09:58 WBC 7.71 (4.50-10.00) 10*3/uL RBC 5.70 H (4.40-5.60) 10*6/uL Hgb 14.4 (13.0-17.0) g/dL Hct 45.5 (39.6-50.0) % MCV 79.8 L (80.0-97.0) fL MCH 25.3 L (27.0-32.0) pg MCHC 31.6 L (32.0-37.0) g/dL Plt Count 150 (140-440) 10*3/uL MPV 11.1 (9.5-12.2) fL Immature Gran % (Auto) 0.4 % Neutrophils % 76.2 % Lymphocytes % 17.5 % Monocytes % 4.4 % Eosinophils % 0.9 % Basophils % 0.6 % Immature Gran # 0.03 (0.00-0.04) 10*3/uL Neutrophils # 5.87 (1.80-7.70) 10*3/uL Lymphocytes # 1.35 (0.90-5.00) 10*3/uL Monocytes # 0.34 (0.20-1.00) 10*3/uL Eosinophils # 0.07 (0.04-0.35) 10*3/uL Basophils # 0.05 (0.00-0.10) 10*3/uL PT 12.0 (10.0-12.5) sec INR 1.1 (<1.2) APTT 26.8 (22.0-30.0) sec Sodium 136 L (137-145) mmol/L Potassium 4.8 (3.5-5.1) mmol/L Chloride 103 (98-107) mmol/L Carbon Dioxide 21 L (22-30) mmol/L Anion Gap 12 mmol/L BUN 15 (9-20) mg/dL Creatinine 0.85 (0.66-1.25) mg/dL Est GFR (CKD-EPI)AfAm >90 (>60 ml/min/1.73 sqM) Est GFR (CKD-EPI)NonAf 87 (>60 ml/min/1.73 sqM) Glucose 155 H (74-99) mg/dL Plasma Lactic Acid Iván (0.7-2.0) mmol/L Calcium 10.7 H (8.4-10.2) mg/dL Total Bilirubin 0.7 (0.2-1.3) mg/dL AST 29 (17-59) U/L ALT 20 (4-49) U/L Alkaline Phosphatase 80 (38-126) U/L Troponin I (0.000-0.034) ng/mL Total Protein 7.2 (6.3-8.2) g/dL Albumin 4.4 (3.5-5.0) g/dL Amylase 76 (30-110) U/L Lipase 105 (23-300) U/L Urine Color Urine Appearance (Clear) Urine pH (5.0-8.0) Ur Specific [place] (1.001-1.035) Urine Protein (Negative) Urine Glucose (UA) (Negative) Urine Ketones (Negative) Urine Blood (Negative) Urine Nitrite (Negative) Urine Bilirubin (Negative) Urine Urobilinogen (<2.0) mg/dL Ur Leukocyte Esterase (Negative) 10/22/24 10/22/24 10/22/24 Range/Units 09:58 09:58 10:14 WBC (4.50-10.00) 10*3/uL RBC (4.40-5.60) 10*6/uL Hgb (13.0-17.0) g/dL Hct (39.6-50.0) % MCV (80.0-97.0) fL MCH (27.0-32.0) pg MCHC (32.0-37.0) g/dL Plt Count (140-440) 10*3/uL MPV (9.5-12.2) fL Immature Gran % (Auto) % Neutrophils % % Lymphocytes % % Monocytes % % Eosinophils % % Basophils % % Immature Gran # (0.00-0.04) 10*3/uL Neutrophils # (1.80-7.70) 10*3/uL Lymphocytes # (0.90-5.00) 10*3/uL Monocytes # (0.20-1.00) 10*3/uL Eosinophils # (0.04-0.35) 10*3/uL Basophils # (0.00-0.10) 10*3/uL PT (10.0-12.5) sec INR (<1.2) APTT (22.0-30.0) sec Sodium (137-145) mmol/L Potassium (3.5-5.1) mmol/L Chloride (98-107) mmol/L Carbon Dioxide (22-30) mmol/L Anion Gap mmol/L BUN (9-20) mg/dL Creatinine (0.66-1.25) mg/dL Est GFR (CKD-EPI)AfAm (>60 ml/min/1.73 sqM) Est GFR (CKD-EPI)NonAf (>60 ml/min/1.73 sqM) Glucose (74-99) mg/dL Plasma Lactic Acid Iván 1.6 (0.7-2.0) mmol/L Calcium (8.4-10.2) mg/dL Total Bilirubin (0.2-1.3) mg/dL AST (17-59) U/L ALT (4-49) U/L Alkaline Phosphatase (38-126) U/L Troponin I <0.012 (0.000-0.034) ng/mL Total Protein (6.3-8.2) g/dL Albumin (3.5-5.0) g/dL Amylase (30-110) U/L Lipase (23-300) U/L Urine Color Colorless Urine Appearance Clear (Clear) Urine pH 6.5 (5.0-8.0) Ur Specific [place] 1.024 (1.001-1.035) Urine Protein Negative (Negative) Urine Glucose (UA) 4+ H (Negative) Urine Ketones Negative (Negative) Urine Blood Negative (Negative) Urine Nitrite Negative (Negative) Urine Bilirubin Negative (Negative) Urine Urobilinogen <2.0 (<2.0) mg/dL Ur Leukocyte Esterase Negative (Negative) - Radiology Data Radiology results: report reviewed (CT of the abdomen pelvis is negative for acute disease), image reviewed Disposition Clinical Impression: Abdominal colic Disposition: HOME SELF-CARE Condition: Good Instructions (If sedation given, give patient instructions): Abdominal Pain (ED) Is patient prescribed a controlled substance at d/c from ED?: No Referrals: Juan Shields DO [Primary Care Provider] - 1-2 days Time of Disposition: 12:10
[2024-10-22] MEDS ORDERED: POLYMYXIN B-TRIMETHOPRIM SULF (10,000-1) OPHTH DROPS 10 ML BTL LEFT EYE SCH (10:00)
[2024-10-22] MEDS: ONDANSETRON 4 MG/2 ML VIAL IVP STA (10:03)
[2024-10-22] MEDS: HYDROmorphone 1 MG/ML 1 ML SYRINGE IVP STA (10:05)
[2024-10-22] MEDS: SODIUM CHLORIDE 0.9% 1,000 ML IV ONE (10:06)
[2024-10-22 10:14] LABS: Basophils # (A) 0.05 10*3/uL (0.00-0.10); Basophils % (A) 0.6 %; Eosinophils # (A) 0.07 10*3/uL (0.04-0.35); Eosinophils % (A) 0.9 %; HCT 45.5 % (39.6-50.0); HGB 14.4 g/dL (13.0-17.0); Lymphocytes # (A) 1.35 10*3/uL (0.90-5.00); Lymphocytes % (A) 17.5 %; MCH 25.3 pg (27.0-32.0); MCHC 31.6 g/dL (32.0-37.0); MCV 79.8 fL (80.0-97.0); Mean Platelet Volume 11.1 fL (9.5-12.2); Monocytes # (A) 0.34 10*3/uL (0.20-1.00); Monocytes % (A) 4.4 %; Neutrophils # (A) 5.87 10*3/uL (1.80-7.70); Neutrophils % (A) 76.2 %; Platelet Count 150 10*3/uL (140-440); RDW 19.1 % (11.5-14.5); WBC 7.71 10*3/uL (4.50-10.00)
[2024-10-22 10:19] LABS: ALT 20 U/L (4-49); AST 29 U/L (17-59); African American GFR (CKD) >90 (>60 ml/min/1.73 sqM); Albumin 4.4 g/dL (3.5-5.0); Alkaline Phosphatase 80 U/L (38-126); Amylase 76 U/L (30-110); Anion Gap 12 mmol/L; Blood Urea Nitrogen 15 mg/dL (9-20); Calcium 10.7 mg/dL (8.4-10.2); Carbon Dioxide 21 mmol/L (22-30); Chloride 103 mmol/L (98-107); Glucose 155 mg/dL (74-99); Lipase 105 U/L (23-300); Non-African American GFR(CKD) 87 (>60 ml/min/1.73 sqM); Potassium 4.8 mmol/L (3.5-5.1); Sodium 136 mmol/L (137-145); Total Bilirubin 0.7 mg/dL (0.2-1.3); Total Protein 7.2 g/dL (6.3-8.2)
[2024-10-22 10:22] LABS: Appearance,Urine Clear (Clear); Bilirubin,Urine Negative (Negative); Blood,Urine Negative (Negative); Color,Urine Colorless; Glucose,Urine (UA) 4+ (Negative); Ketones,Urine Negative (Negative); Leukocyte Esterase,Urine Negative (Negative); Nitrite,Urine Negative (Negative); PH, Urine 6.5 (5.0-8.0); Protein,Urine Negative (Negative); Specific Gravity,Urine 1.024 (1.001-1.035); Urobilinogen,Urine <2.0 mg/dL (<2.0)
[2024-10-22 10:28] LABS: INR 1.1 (<1.2); Partial Thromboplastin Time 26.8 sec (22.0-30.0)
[2024-10-22] MEDS ORDERED: LORazepam 1 MG/0.5 ML VIAL IV STA (10:40)
[2024-10-22] MEDS: SODIUM CHLORIDE 0.9% 1,000 ML IV SCH (11:02)
--- NOTE | 2024-10-22 11:59 | CT ---
EXAMINATION TYPE: CT abdomen pelvis w con DATE OF EXAM: 10/22/2024 11:34 AM COMPARISON: None. CLINICAL INDICATION: Male, 74 years old with history of pain, Generalized left sided abdominal pain, history of colon cancer TECHNIQUE: Axial images were obtained from above the diaphragm to the pubic rami in the axial plane a t 5 mm thick sections. Reconstructed images are reviewed on the computer in the coronal plane. CONTRAST: 100 ml mL of Isovue 300. Study performed without Oral Contrast DLP: 1847.3 mGycm, Automated exposure control for dose reduction was used. FINDINGS: Limited CT sections are obtained the lung bases. Couple of punctate densities are at the right lung base, present previously. Series 201 image 1. Additional punctate densities at the right. Coronary a rtery calcification is present. CT ABDOMEN: Liver: Normal Spleen: Scattered calcifications are within the spleen. Splenomegaly is present measuring 15.3 cm. No rmal less than 12.5 cm. Pancreas: Normal Adrenal glands: There is a 1.1 cm nodule in the superior left adrenal gland. Right adrenal gland is n ormal. Gallbladder: Surgically absent Kidneys: There is a 3.5 cm cyst on the lateral left kidney. Small cortical renal cyst measuring 2.1 c m in the anterior inferior right kidney.. No hydronephrosis is present. Delayed images were obtaine d through the kidneys, which remain unremarkable. Aorta: Vascular calcification is within the aorta. Inferior vena cava: Normal. CT PELVIS: Loops of bowel within the abdomen and pelvis are normal. This study is without oral contrast limi ting evaluation. The distal ascending colon anastomosis appears normal. No focal stenosis is identifi ed. No dilated small bowel loops are evident. Appendix: Normal as visualized. Urinary bladder: Normal. Genitourinary structures: Prostate is prominent Osseous structures: No suspicious lytic or sclerotic lesions. IMPRESSION: 1. Multiple punctate nodules within the lung bases some of which were present previously. Findings a re nonspecific. 2. No suspicious changes at the ascending colon resection and anastomosis. 3. Prostate hypertrophy. 4. Splenomegaly. [facility], , 10/22/2024 11:56 AM
[2024-10-22] MEDS: traMADol 50 MG STARTER PACK 3 TAB BTL PO STA (12:33)
[2024-10-22 12:35] VITALS: BP 111/57; PULSE 75; RESP 16; TEMP 98.1
== END 2024-10-22 12:39 | disposition home or self-care (01) ==
LOC: EC 09:18
DX: R10.84 Generalized abdominal pain (principal); F17.200 Nicotine dependence, unspecified, uncomplicated; Z88.5 Allergy status to narcotic agent; Z88.2 Allergy status to sulfonamides; Z88.8 Allergy status to other drugs, medicaments and biological substances
CPT/HCPCS: 36415; 80053; 82150; 83605; 83690; 84484; 85025; 85610; 85730; 81003; 74177; 99284; 96374; 96375; 96361; J2405; J1171; Q9967

== ENCOUNTER 2024-11-13 18:41 | Emergency (ER) | payer OTHER, MEDICARE ==
[2024-11-13 19:38] VITALS: RESP 18
--- NOTE | 2024-11-13 19:41 | ED ---
General Adult HPI - General Source: patient, RN notes reviewed Mode of arrival: wheelchair Limitations: no limitations <Balta Patel - Last Filed: 11/13/24 19:41> - General Source: patient, RN notes reviewed, old records reviewed <Evan Whitney - Last Filed: 11/14/24 01:25> - General Chief complaint: Abdominal Pain Stated complaint: Weakness,Dizziness Time Seen by Provider: 11/13/24 18:57 - History of Present Illness Initial comments: Quick note: This is a 74-year-old male with history including A-fib, CAD, colon cancer with resection, CVA, DM, AMI presenting with for dehydration x 3 days. states patient has had a low blood pressure with unsteadiness/discoordination. states patient is also more confused and forgetful than usual. Also mentions decreased sleep and increased urinary frequency. Patient mentions chronic lower abdominal pain with bloating, stating tramadol is not helping with his pain. states patient is scheduled for an abdominal MRI on 11/18/2024 and would not like abdominal imaging at this time. Patient denies fever, chills, chest pain, dyspnea, N/V/D, dysuria. (Balta Artis) Patient originally evaluated as a quick note. Presents emergency department with chronic intractable abdominal pain. Has a history of colon cancer with colon resection, diabetes, CVA, CAD, A-fib. At home, has been having episodes of mild dehydration they suspect. He has been dealing with chronic abdominal pain for months since he had his gallbladder out. States he saw his GI specialist Dr. Scott yesterday and has an outpatient MRI scheduled next Sunday. Was given tramadol which is not helping with the pain which is why presents for further evaluation. Denies any change in bowel habits. Denies constipation. Denies diarrhea. Denies any blood in his stool. Denies any blood in any emesis. Denies any nausea or emesis. Denies any chest pain or shortness of breath. No other acute complaints at this time. Presents for further evaluation at this time. (Evan Whitney) - Related Data Home Medications Medication Instructions Recorded Confirmed Potassium Chloride [Klor-Con 20] 20 meq PO DAILY 01/15/14 10/22/24 Pravastatin Sodium [Pravachol] 40 mg PO HS 01/15/14 10/22/24 allopurinoL [Zyloprim] 100 mg PO HS 07/28/15 10/22/24 Sertraline HCl [Zoloft] 200 mg PO DAILY 11/05/15 10/22/24 Rivaroxaban [Xarelto] 20 mg PO HS 07/27/17 10/22/24 Empagliflozin [Jardiance] 25 mg PO DAILY 06/10/21 10/22/24 Pantoprazole [Protonix] 40 mg PO BID 06/10/21 10/22/24 glipiZIDE [Glucotrol] 20 mg PO HS 08/14/22 10/22/24 LORazepam [Ativan] 2 mg PO BID PRN 08/11/23 10/22/24 Temazepam [Restoril] 7.5 mg PO HS 02/11/24 10/22/24 Ziprasidone [Geodon] 40 mg PO BID 03/14/24 10/22/24 Insulin Glargine,Hum.rec.anlog 20 unit SQ HS 05/30/24 10/22/24 [Insulin Glargine Solostar] [place] Carbonate ER [Lithobid] 450 mg PO HS 05/30/24 10/22/24 lisinopriL [Zestril] 10 mg PO DAILY 08/07/24 10/22/24 Aspirin EC [Ecotrin Low Dose] 81 mg PO DAILY 10/22/24 10/22/24 Cequa 0.09% Eye Drops 1 drop BOTH EYES BID 10/22/24 10/22/24 Previous Rx's Medication Instructions Recorded Fenofibrate [Lofibra] 160 mg PO DAILY 30 Days #30 tab 11/27/23 Acetaminophen Tab [Tylenol] 650 mg PO Q6HR PRN tab 07/22/24 HYDROcodone/APAP 5-325MG [Chestnut 1 tab PO Q4HR PRN 3 Days #18 tab 11/13/24 5-325] Allergies Allergy/AdvReac Type Severity Reaction Status Date / Time clopidogrel bisulfate Allergy Rash/Hives Verified 10/22/24 12:16 [From Plavix] Sulfa (Sulfonamide Allergy Rash/Hives Verified 10/22/24 12:16 Antibiotics) gabapentin AdvReac Aggression, Verified 10/22/24 12:16 anxiety, mood swings metformin AdvReac Diarrhea Verified 10/22/24 12:16 morphine AdvReac Hallucinati Verified 10/22/24 12:16 ons pregabalin [From Lyrica] AdvReac Aggression, Verified 10/22/24 12:16 anxiety, mood swings Review of Systems ROS Other: All systems not noted in ROS Statement are negative. <Balta Patel - Last Filed: 11/13/24 19:41> ROS Other: All systems not noted in ROS Statement are negative. <Evan Whitney - Last Filed: 11/14/24 01:25> ROS Statement: Those systems with pertinent positive or pertinent negative responses have been documented in the HPI. Review of Systems: CONST: Denies fever EYES: Denies blurry vision ENT: Denies nasal congestion C/V: Denies Chest pain RESP: Denies shortness of breath GI: Endorses abdominal pain : Denies dysuria SKIN: Denies rash. MSK: Denies joint pain. NEURO: Denies headache (Evan Whitney) Past Medical History Past Medical History: Atrial Fibrillation, Coronary Artery Disease (CAD), Cancer, Heart Failure, CVA/TIA, Diabetes Mellitus, GERD/Reflux, Hyperlipidemia, Hypertension, Myocardial Infarction (AR), Sleep Apnea/CPAP/BIPAP, Thyroid Disorder Additional Past Medical History / Comment(s): gout, skin ca, colon cancer with resection and chemo (2017)., c-pap machine., ulcer on side of right great toe- receives wound tx ., BPH., gall bladder pain.buldge to c-spine, infection toe- needing amputation Last Myocardial Infarction Date:: 2006 History of Any Multi-Drug Resistant Organisms: C-DIFF, MRSA Date of last positivie culture/infection: MDRO Source:: right great toe Past Surgical History: Appendectomy, Bowel Resection, Heart Catheterization With Stent, Orthopedic Surgery Additional Past Surgical History / Comment(s): skin ca removed, lt shoulder surgery ,rt knee surgery, deviated septum surgery Past Anesthesia/Blood Transfusion Reactions: No Reported Reaction Date of Last Stent Placement:: 2006 Past Psychological History: Anxiety, Bipolar, Depression Smoking Status: Current some day smoker, Former smoker - Past Family History Father Family Medical History: Asthma, Hyperlipidemia Additional Family Medical History / Comment(s): aneurysm- at age 61. was a heavy smoker,prostate sx a week before he not sure what took him. Mother Family Medical History: Dementia Additional Family Medical History / Comment(s): at age 75 from alzheimers <Balta Patel - Last Filed: 11/13/24 19:41> General Exam <Balta Patel - Last Filed: 11/13/24 19:41> <Evan Whitney - Last Filed: 11/14/24 01:25> - General Exam Comments Initial Comments: Visual Physical Exam Vital signs reviewed General: Well-appearing, nontoxic, no acute distress. Head: Normocephalic, atraumatic Eyes: PERRLA, EOMI ENT: Airway patent Chest: Nonlabored breathing Skin: No visual rash, normal skin tone Neuro: Alert and oriented 3 Musculoskeletal: No gross abnormalities (Balta Patel) General: Appears in no acute distress. HEAD: Normal with no signs of head trauma. EYES: PERRLA, EOMI, conjunctiva normal, no discharge. ENT: Hearing grossly intact, normal oropharynx. RESPIRATORY: Clear breath sounds bilaterally. No wheezes, rales, or rhonchi. C/V: Regular rate and rhythm. S1 and S2 auscultated, no edema, peripheral pulses 2+ and intact throughout ABD: Abdomen soft, nondistended. No focal tenderness to palpation. No guarding or rebound tenderness. No peritoneal signs. EXT: Normal range of motion, no obvious deformity SKIN: No rashes or lesions observed on exposed skin. NEURO: Alert and orient x 4. No focal deficits. (Evan Whitney) Course Vital Signs 11/13/24 11/13/24 19:32 22:58 Temperature 98.3 F 97.8 F Pulse Rate 64 60 Respiratory 18 18 Rate Blood Pressure 142/92 151/92 O2 Sat by Pulse 98 98 Oximetry Medical Decision Making <Balta Patel - Last Filed: 11/13/24 19:41> - Lab Data Result diagrams: 11/13/24 19:50 11/13/24 19:50 - EKG Data -: EKG Interpreted by Me <Evan Whitney - Last Filed: 11/14/24 01:25> - Medical Decision Making I completed the quick note portion of this chart signed SANDOVAL Booker (Balta Patel) Was pt. sent in by a medical professional or institution (NERY Rojas, ONLINE SERVICES MANAGER, urgent care, hospital, or long-term...) When possible be specific @ -No Did you speak to anyone other than the patient for history (EMS, parent, family, police, friend...)? What history was obtained from this source @ -No Did you review nursing and triage notes (agree or disagree)? Why? @ -I reviewed and agree with nursing and triage notes Were old charts reviewed (outside hosp., previous admission, EMS record, old EKG, old radiological studies, urgent care reports/EKG's, long-term records)? Report findings @ -Reviewed old charts including recent visits over the last few months with CT abdomen/pelvis's which revealed no obvious acute processes. Most recent was from early October 2024, just a few weeks ago with no new symptoms. Differential Diagnosis (chest pain, altered mental status, abdominal pain women, abdominal pain men, vaginal bleeding, weakness, fever, dyspnea, syncope, headache, dizziness, GI bleed, back pain, seizure, CVA, palpatations, mental health, musculoskeletal)? @ -Differential Abdominal Pain Men: Appendicitis, cholecystitis, diverticulosis, ischemic bowel, pancreatitis, hepatitis, UTI, gastroenteritis, AAA, incarcerated hernia, bowel obstruction, constipation, inflammatory bowel, hepatitis, peptic ulcer disease, splenic infarction, perforated viscus, testicular torsion, this is not meant to be an all-inclusive list EKG interpreted by me (3pts min.). @ -As above X-rays interpreted by me (1pt min.). @ -Chest x-ray shows no obvious acute cardiopulmonary process. CT interpreted by me (1pt min.). @ -None done U/S interpreted by me (1pt. min.). @ -None done What testing was considered but not performed or refused? (CT, X-rays, U/S, labs)? Why? @ -Considered CT imaging of the abdomen pelvis however patient has been having chronic abdominal pain with no acute changes. Workup today was unremarkable. Had a CT performed a few weeks ago and has an MRI scheduled next week. Saw his GI specialist Dr. Singh yesterday and he was told that his CT not be beneficial which is why MRI was ordered. As symptoms all seem to be chronic, he has outpatient imaging arranged, and most recent CT was identical symptoms obtained a few weeks ago unremarkable I do not believe repeat CT imaging is required and patient was in agreement with this plan. What meds were considered but not given or refused? Why? @ -None Did you discuss the management of the patient with other professionals (latoya garrido i.e. , PA, ONLINE SERVICES MANAGER, lab, RT, psych nurse, neonatal social worker, bioprocess development engineer, teacher, gift officer, caseworker)? Give summary @ -No Was smoking cessation discussed for >3mins.? @ -No Was critical care preformed (if so, how long)? @ -No Were there social determinants of health that impacted care today? How? (Homelessness, low income, unemployed, alcoholism, drug addiction, transportation, low edu. Level, literacy, decrease access to med. care, senior care, rehab)? @ -No Was there de-escalation of care discussed even if they declined (Discuss DNR or withdrawal of care, Hospice)? DNR status @ -No What co-morbidities impacted this encounter? (DM, HTN, Smoking, COPD, CAD, Cancer, CVA, ARF, Chemo, Hep., AIDS, mental health diagnosis, sleep apnea, morbid obesity)? @ -Chronic abdominal pain Was patient admitted / discharged? Hospital course, mention meds given and route, prescriptions, significant lab abnormalities, going to OR and other pertinent info. @ -Based on patient's presentation and physical exam, presents emergency department for chronic abdominal pain. Unchanged from baseline. Is been ongoing for weeks to months. Numerous visits for identical symptoms. CT imaging from earlier October 2024 negative for any obvious acute process. Did see his GI specialist Dr. Guan yesterday who arranged for outpatient MRI and did not believe CT was warranted at that time either. He has no significant acute complaints at this time. Denies nausea, vomiting, constipation, diarrhea. Exam is unremarkable. Vitals within acceptable limits. Workup was completed as a quick note. Chest x-ray unremarkable. EKG unremarkable. Laboratory studies are all within acceptable limits. This includes undetectable troponin. At this time, I updated the patient. I believe is safe for him to be discharged home at this time with follow-up for MRI next week. He was in agreement this plan. Strict return precautions discussed. Given a prescription for Chestnut. Given IV analgesia medications prior to discharge. I will provide the patient with a prescription for Chestnut. I instructed the patient to follow up with their PCP in the next 1-3 days.. I explained that the patient should return to the emergency department if they experience any worsening symptoms. Strict return precautions were discussed with the patient. The patient expressed understanding of these instructions. I answered all ques tions that the patient had. The patient was discharged home in good condition with their prescriptions and follow up information. Undiagnosed new problem with uncertain prognosis? @ -No Drug Therapy requiring intensive monitoring for toxicity (Heparin, Nitro, Insulin, Cardizem)? @ -No Were any procedures done? @ -No Diagnosis/symptom? @ -Chronic abdominal pain of unknown etiology Acute, or Chronic, or Acute on Chronic? @ -Chronic Uncomplicated (without systemic symptoms) or Complicated (systemic symptoms)? @ -Uncomplicated Side effects of treatment? @ -No Exacerbation, Progression, or Severe Exacerbation? @ -No Poses a threat to life or bodily function? How? (Chest pain, USA, AR, pneumonia, PE, COPD, DKA, ARF, appy, cholecystitis, CVA, Diverticulitis, Homicidal, Suicidal, threat to staff... and all critical care pts) @ -Unlikely at this time (Evan Whitney) - Lab Data Lab Results 11/13/24 11/13/24 11/13/24 Range/Units 19:50 19:50 19:50 WBC 6.96 (4.50-10.00) 10*3/uL RBC 5.98 H (4.40-5.60) 10*6/uL Hgb 14.8 (13.0-17.0) g/dL Hct 47.9 (39.6-50.0) % MCV 80.1 (80.0-97.0) fL MCH 24.7 L (27.0-32.0) pg MCHC 30.9 L (32.0-37.0) g/dL Plt Count 192 (140-440) 10*3/uL MPV 10.7 (9.5-12.2) fL Immature Gran % (Auto) 0.3 % Neutrophils % 68.6 % Lymphocytes % 22.6 % Monocytes % 5.6 % Eosinophils % 2.2 % Basophils % 0.7 % Immature Gran # 0.02 (0.00-0.04) 10*3/uL Neutrophils # 4.78 (1.80-7.70) 10*3/uL Lymphocytes # 1.57 (0.90-5.00) 10*3/uL Monocytes # 0.39 (0.20-1.00) 10*3/uL Eosinophils # 0.15 (0.04-0.35) 10*3/uL Basophils # 0.05 (0.00-0.10) 10*3/uL PT 10.8 (10.0-12.5) sec INR 1.0 (<1.2) APTT 25.0 (22.0-30.0) sec Sodium 136 L (137-145) mmol/L Potassium 4.9 (3.5-5.1) mmol/L Chloride 106 (98-107) mmol/L Carbon Dioxide 20 L (22-30) mmol/L Anion Gap 10 mmol/L BUN 17 (9-20) mg/dL Creatinine 0.76 (0.66-1.25) mg/dL Est GFR (CKD-EPI)AfAm >90 (>60 ml/min/1.73 sqM) Est GFR (CKD-EPI)NonAf >90 (>60 ml/min/1.73 sqM) Glucose 140 H (74-99) mg/dL Plasma Lactic Acid Iván (0.7-2.0) mmol/L Calcium 10.8 H (8.4-10.2) mg/dL Magnesium 2.3 (1.6-2.3) mg/dL Total Bilirubin 0.8 (0.2-1.3) mg/dL AST 36 (17-59) U/L ALT 21 (4-49) U/L Alkaline Phosphatase 88 (38-126) U/L Troponin I (0.000-0.034) ng/mL Total Protein 8.0 (6.3-8.2) g/dL Albumin 5.0 (3.5-5.0) g/dL Lipase 180 (23-300) U/L 11/13/24 11/13/24 Range/Units 19:50 19:50 WBC (4.50-10.00) 10*3/uL RBC (4.40-5.60) 10*6/uL Hgb (13.0-17.0) g/dL Hct (39.6-50.0) % MCV (80.0-97.0) fL MCH (27.0-32.0) pg MCHC (32.0-37.0) g/dL Plt Count (140-440) 10*3/uL MPV (9.5-12.2) fL Immature Gran % (Auto) % Neutrophils % % Lymphocytes % % Monocytes % % Eosinophils % % Basophils % % Immature Gran # (0.00-0.04) 10*3/uL Neutrophils # (1.80-7.70) 10*3/uL Lymphocytes # (0.90-5.00) 10*3/uL Monocytes # (0.20-1.00) 10*3/uL Eosinophils # (0.04-0.35) 10*3/uL Basophils # (0.00-0.10) 10*3/uL PT (10.0-12.5) sec INR (<1.2) APTT (22.0-30.0) sec Sodium (137-145) mmol/L Potassium (3.5-5.1) mmol/L Chloride (98-107) mmol/L Carbon Dioxide (22-30) mmol/L Anion Gap mmol/L BUN (9-20) mg/dL Creatinine (0.66-1.25) mg/dL Est GFR (CKD-EPI)AfAm (>60 ml/min/1.73 sqM) Est GFR (CKD-EPI)NonAf (>60 ml/min/1.73 sqM) Glucose (74-99) mg/dL Plasma Lactic Acid Iván 1.2 (0.7-2.0) mmol/L Calcium (8.4-10.2) mg/dL Magnesium (1.6-2.3) mg/dL Total Bilirubin (0.2-1.3) mg/dL AST (17-59) U/L ALT (4-49) U/L Alkaline Phosphatase (38-126) U/L Troponin I <0.012 (0.000-0.034) ng/mL Total Protein (6.3-8.2) g/dL Albumin (3.5-5.0) g/dL Lipase (23-300) U/L - EKG Data EKG Comments: 12-lead Electrocardiogram Interpretation Note EKG was reviewed and interpreted by myself. 12-lead ECG performed at 1946 is interpreted by me as revealing fibrillation at a rate of 66 beats per minute. Salters is indeterminate. Incomplete right bundle branch block morphology present. QRS duration is 99 ms, QTc is 418 ms.. There were no ST or T wave abnormalities to suggest myocardial ischemia or injury. R wave progression across the precordium was satisfactory. By my interpretation this EKG is non-d iagnostic for acute ischemia. (Evan Whitney) Disposition <Balta Patel - Last Filed: 11/13/24 19:41> Is patient prescribed a controlled substance at d/c from ED?: Yes When asked, does pt state using other controlled substances?: Yes If prescribed controlled substance>3 days was MAPS reviewed?: Prescribed <3 Days If opioid is for acute pain is fill amount 7 days or less?: Yes If Rx opioid, was Start Talking consent form obtained?: Yes Time of Disposition: 22:52 <Evan Whitney - Last Filed: 11/14/24 01:25> Clinical Impression: Chronic abdominal pain, Abdominal pain of unknown etiology Disposition: HOME SELF-CARE Condition: Good Instructions (If sedation given, give patient instructions): Abdominal Pain (ED) Prescriptions: HYDROcodone/APAP 5-325MG [Chestnut 5-325] 1 tab PO Q4HR PRN 3 Days #18 tab PRN Reason: Pain Referrals: Juan Shields DO [Primary Care Provider] - 1-2 days Bhavani Singh MD [STAFF PHYSICIAN] - 1-2 days
[2024-11-13 20:14] LABS: ALT 21 U/L (4-49); AST 36 U/L (17-59); African American GFR (CKD) >90 (>60 ml/min/1.73 sqM); Alkaline Phosphatase 88 U/L (38-126); Anion Gap 10 mmol/L; Blood Urea Nitrogen 17 mg/dL (9-20); Calcium 10.8 mg/dL (8.4-10.2); Carbon Dioxide 20 mmol/L (22-30); Chloride 106 mmol/L (98-107); Glucose 140 mg/dL (74-99); Lipase 180 U/L (23-300); Magnesium 2.3 mg/dL (1.6-2.3); Non-African American GFR(CKD) >90 (>60 ml/min/1.73 sqM); Potassium 4.9 mmol/L (3.5-5.1); Sodium 136 mmol/L (137-145); Total Bilirubin 0.8 mg/dL (0.2-1.3)
[2024-11-13 20:20] LABS: Basophils # (A) 0.05 10*3/uL (0.00-0.10); Basophils % (A) 0.7 %; Eosinophils # (A) 0.15 10*3/uL (0.04-0.35); Eosinophils % (A) 2.2 %; HCT 47.9 % (39.6-50.0); HGB 14.8 g/dL (13.0-17.0); Lymphocytes # (A) 1.57 10*3/uL (0.90-5.00); Lymphocytes % (A) 22.6 %; MCH 24.7 pg (27.0-32.0); MCHC 30.9 g/dL (32.0-37.0); MCV 80.1 fL (80.0-97.0); Mean Platelet Volume 10.7 fL (9.5-12.2); Monocytes # (A) 0.39 10*3/uL (0.20-1.00); Monocytes % (A) 5.6 %; Neutrophils # (A) 4.78 10*3/uL (1.80-7.70); Neutrophils % (A) 68.6 %; Platelet Count 192 10*3/uL (140-440); RBC 5.98 10*6/uL (4.40-5.60); RDW 17.8 % (11.5-14.5); WBC 6.96 10*3/uL (4.50-10.00)
--- NOTE | 2024-11-13 20:25 | XR ---
EXAMINATION TYPE: XR chest 2V DATE OF EXAM: 11/13/2024 8:19 PM CLINICAL INDICATION:Male, 74 years old with history of Chest Pain; [facility] COMPARISON: None TECHNIQUE: XR chest 2V Frontal view of the chest. FINDINGS: Lungs/Pleura: Lungs have a hyperinflated appearance. Bibasilar atelectasis. No pleural effusions or p neumothorax.. Pulmonary vascularity: Unremarkable. Heart/mediastinum: Cardiomediastinal silhouette is unremarkable. Musculoskeletal: No acute osseous pathology. IMPRESSION: Emphysematous appearance to the lungs with bibasilar atelectasis. No acute cardiopulmonary disease/pr ocess. [facility], , 11/13/2024 8:23 PM
[2024-11-13 20:27] LABS: Prothrombin Time 10.8 sec (10.0-12.5)
[2024-11-13 22:59] VITALS: BP 151/92; PULSE 60; TEMP 97.8
[2024-11-13] MEDS: HYDROmorphone 0.5 MG/0.5 ML SYRINGE IVP STA (23:06)
[2024-11-13] MEDS: KETOROLAC 15 MG/ML 1 ML VIAL IVP STA (23:06)
== END 2024-11-13 23:11 | disposition home or self-care (01) ==
LOC: EC 18:41
DX: G89.29 Other chronic pain (principal); R10.9 Unspecified abdominal pain; I45.10 Unspecified right bundle-branch block; Z86.73 Personal history of transient ischemic attack (TIA), and cerebral infarction without residual deficits; F17.200 Nicotine dependence, unspecified, uncomplicated; Z88.1 Allergy status to other antibiotic agents; Z88.2 Allergy status to sulfonamides; Z88.5 Allergy status to narcotic agent; Z88.8 Allergy status to other drugs, medicaments and biological substances
CPT/HCPCS: 36415; 93005; 80053; 83605; 83690; 83735; 84484; 85025; 85610; 85730; 71046; 99284; 96374; 96375; J1885; J1171